=== PATIENT | male | born 1990 | race Caucasian/White ===

== ENCOUNTER 2017-01-08 16:02 | Observation (INO) | payer OTHER, MEDICAID ==
--- NOTE | 2017-01-08 17:21 | EDPHY ---
H & P Stated Complaint: renal disease has 1 kidney/pt has missed his dialysis for 2 weeks Time Seen by Provider: 01/08/17 17:18 HPI/ROS: CHIEF COMPLAINT: Headache HISTORY OF PRESENT ILLNESS: This is a 26-year-old male presenting to the emergency department complaining of headache x2 days. 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 Patient states he normally has dialysis at [facility] in [place] in [place] Saturday and Saturday, his last dialysis was 8 days ago he [place] and missed his last 2 visits of dialysis. REVIEW OF SYSTEMS: Constitutional: No fever, no chills. Decreased p.o. intake Eyes: No discharge. ENT: No sore throat. Cardiovascular: No chest pain, no palpitations. Respiratory: No cough, no shortness of breath. Gastrointestinal: No abdominal pain, no nausea or vomiting. Genitourinary: No hematuria. Musculoskeletal: No back pain. Skin: No rashes. Neurological: headache. Source: Patient - Personal History Current Tetanus/Diphtheria Vaccine: Yes - Medical/Surgical History Hx Asthma: No Hx Chronic Respiratory Disease: No Hx Diabetes: No Hx Cardiac Disease: No Hx Renal Disease: Yes Hx Cirrhosis: No Hx Alcoholism: No Hx HIV/AIDS: No Hx Splenectomy or Spleen Trauma: No Other PMH: dialysis for renal dysfunction - Social History Smoking Status: Current every day smoker - Physical Exam Exam: General Appearance: Alert, no distress. Eyes: Pupils equal and round no pallor or injection. ENT, Mouth: Mucous membranes moist. Respiratory: There are no retractions, lungs are clear to auscultation. Cardiovascular: Regular rate and rhythm. Gastrointestinal: Abdomen is soft and nontender, no masses, bowel sounds normal. Neurological: No focal deficits Skin: Warm and dry, no rashes. Musculoskeletal: Neck is supple nontender. Extremities: Left forearm fistula positive bruit positive thrill noted full range of motion. Psychiatric: Patient is oriented X 3, there is no agitation. Constitutional: Initial Vital Signs Temperature (C) 37 C 01/08/17 16:09 Heart Rate 90 01/08/17 16:09 Respiratory Rate 18 01/08/17 16:09 Blood Pressure 166/122 H 01/08/17 16:09 O2 Sat (%) 96 01/08/17 16:09 O2 Delivery Mode Room Air Allergies/Adverse Reactions: No Known Allergies Allergy (Unverified 01/08/17 16:09) Home Medications: Medication Instructions Recorded Calcium Carbonate [Tums 500MG (*)] 500 mg PO TIDMEAL PRN 01/08/17 Herbals/Supplements -Info Only 1 ea PO DAILY 01/08/17 Medical Decision Making ED Course/Re-evaluation: Discussed ED plan of care: CBC, CMP, EKG, 1730: Creatinine 19.3 BUN 103 potassium 7.2 hemoglobin 8.8 hematocrit 27.7. EKG peak T-waves. Discussed this patient with Dr. Muro. 1800: The renal paged. The meds ordered Kayexalate, the calcium gluconate, insulin/dextrose 1819: Spoke with Dr. Ferris with Renal. Renal aware patient fluid overload 2 amps of sodium bicarb ordered per Dr. Ferris. admitted for emergent dialysis 1825: Spoke with Dr. Sherman, patient is a PCU for hyperkalemia emergent dialysis 1848: Not in any distress, patient complaining of headache Percocet ordered for patient Differential Diagnosis: Other differential diagnosis considered not limited to CVA, abnormal EKG, and hypertension - Data Points Laboratory Results: Laboratory Results 01/08/17 17:16 01/08/17 17:16 01/08/17 01/08/17 01/08/17 17:16 17:16 17:14 WBC 9.59 10^3/uL H 10^3/uL (3.80-9.50) RBC 3.11 10^6/uL L 10^6/uL (4.40-6.38) Hgb 8.8 g/dL L g/dL (13.7-17.5) POC Hgb 8.8 gm/dL L gm/dL (14.5-17.3) Hct 27.7 % L % (40.0-51.0) POC Hct 26 % L % (42.8-50.6) MCV 89.1 fL fL (81.5-99.8) MCH 28.3 pg pg (27.9-34.1) MCHC 31.8 g/dL L g/dL (32.4-36.7) RDW 14.4 % % (11.5-15.2) Plt Count 208 10^3/uL 10^3/uL (150-400) MPV 10.0 fL fL (8.7-11.7) Neut % (Auto) 76.5 % H % (39.3-74.2) Lymph % (Auto) 14.5 % L % (15.0-45.0) [place] % (Auto) 5.0 % % (4.5-13.0) Eos % (Auto) 3.0 % % (0.6-7.6) Baso % (Auto) 0.5 % % (0.3-1.7) Nucleat RBC Rel Count 0.0 % % (0.0-0.2) Absolute Neuts (auto) 7.33 10^3/uL H 10^3/uL (1.70-6.50) Absolute Lymphs (auto) 1.39 10^3/uL 10^3/uL (1.00-3.00) Absolute Monos (auto) 0.48 10^3/uL 10^3/uL (0.30-0.80) Absolute Eos (auto) 0.29 10^3/uL 10^3/uL (0.03-0.40) Absolute Basos (auto) 0.05 10^3/uL 10^3/uL (0.02-0.10) Absolute Nucleated RBC 0.00 10^3/uL 10^3/uL (0-0.01) Immature Gran % 0.5 % % (0.0-1.1) Immature Gran # 0.05 10^3/uL 10^3/uL (0.00-0.10) POC Sodium 141 mEq/L mEq/L (134-144) Sodium 142 mEq/L mEq/L (134-144) POC Potassium 6.9 mEq/L H* mEq/L (3.3-5.0) Potassium 7.2 mEq/L H* mEq/L (3.5-5.2) POC Chloride 113 mEq/L H mEq/L (96-108) Chloride 109 mEq/L mEq/L (97-110) Carbon Dioxide 12 mEq/l L mEq/l (22-31) Anion Gap 21 mEq/L H mEq/L (8-16) POC BUN 113 mg/dL H* mg/dL (7-23) BUN 103 mg/dL H* mg/dL (7-23) Creatinine 19.3 mg/dL H* mg/dL (0.7-1.3) POC Creatinine > 20.0 mg/dL H* mg/dL (0.8-1.5) Estimated GFR 3 Glucose 75 mg/dL mg/dL (70-100) POC Glucose 74 mg/dL mg/dL (70-100) Calcium 7.4 mg/dL L mg/dL (8.5-10.4) Total Bilirubin 0.7 mg/dL mg/dL (0.1-1.4) AST 6 IU/L L IU/L (17-59) ALT 30 IU/L IU/L (21-72) Alkaline Phosphatase 71 IU/L IU/L (38-126) Total Protein 6.9 g/dL g/dL (6.3-8.2) Albumin 4.3 g/dL g/dL (3.5-5.0) Medications Given: Discontinued Medications Albuterol (Proventil Neb) 12 ml IH EDNOW ONE Stop: 01/08/17 18:05 Last Admin: 01/08/17 18:47 Dose: 12 ml Calcium Gluconate (Calcium Gluconate) 1 gm IVP EDNOW ONE Stop: 01/08/17 18:05 Last Admin: 01/08/17 18:20 Dose: 1 gm Dextrose (Dextrose 50% Syringe) 25 gm IVP EDNOW ONE Stop: 01/08/17 18:05 Last Admin: 01/08/17 18:17 Dose: 25 gm Insulin Human Regular (Humulin R) 10 unit IVP EDNOW ONE Stop: 01/08/17 18:05 Last Admin: 01/08/17 18:19 Dose: 10 units Point of Care Test Results: 01/08/17 17:14 POC Sodium 141 POC Potassium 6.9 H* POC Chloride 113 H POC BUN 113 H* POC Creatinine > 20.0 H* POC Glucose 74 Departure - Departure Disposition: [facility] Acute Clinical Impression: Hyperkalemia, Admission for dialysis Condition: Fair
[2017-01-08 17:26] LABS: % IMMATURE GRANULYOCYTES 0.5 % (0.0-1.1); ABSOLUTE IMMATURE GRANULOCYTES 0.05 10^3/uL (0.00-0.10); ADD DIFF? NO; ADD MORPH? NO; ADD SCAN? NO; ATYPICAL LYMPHOCYTE FLAG 0 (0-99); FRAGMENT RBC FLAG 0 (0-99); HEMATOCRIT 27.7 % (40.0-51.0); HEMOGLOBIN 8.8 g/dL (13.7-17.5); LEFT SHIFT FLG 0 (0-99); LIPEMIA HEMOLYSIS FLAG 80 (0-99); MEAN CELL HEMOGLOBIN 28.3 pg (27.9-34.1); MEAN CELL HEMOGLOBIN CONCENTR. 31.8 g/dL (32.4-36.7); MEAN CELL VOLUME 89.1 fL (81.5-99.8); PLATELET CLUMPS FLAG 0 (0-99); PLATELET COUNT 208 10^3/uL (150-400); RED BLOOD CELL COUNT 3.11 10^6/uL (4.40-6.38); RED CELL DISTRIBUTION WIDTH 14.4 % (11.5-15.2)
--- NOTE | 2017-01-08 17:39 | CPEKG ---
Heart Rate: 86 RR Interval: 698 P-R Interval: 144 QRSD Interval: 78 QT Interval: 388 QTC Interval: 464 P Bowie: 48 QRS Bowie: 28 T Wave Bowie: 86 EKG Severity - NORMAL ECG - EKG Impression: SINUS RHYTHM Electronically Signed By: Lawrence Muro 08-Jan-2017 21:03:46
[2017-01-08 17:51] LABS: ALANINE AMINOTRANSFERASE 30 IU/L (21-72); ALBUMIN 4.3 g/dL (3.5-5.0); ALKALINE PHOSPHATASE 71 IU/L (38-126); ANION GAP 21 mEq/L (8-16); ASPARTATE AMINOTRANSFERASE 6 IU/L (17-59); BILIRUBIN,TOTAL 0.7 mg/dL (0.1-1.4); CALCIUM 7.4 mg/dL (8.5-10.4); CARBON DIOXIDE 12 mEq/l (22-31); CHLORIDE 109 mEq/L (97-110); GLUCOSE 75 mg/dL (70-100); SODIUM 142 mEq/L (134-144); TOTAL PROTEIN 6.9 g/dL (6.3-8.2)
[2017-01-08 17:59] LABS: POTASSIUM 7.2 mEq/L (3.5-5.2)
[2017-01-08 18:00] LABS: GLOMERULAR FILTRATION RATE 3
[2017-01-08 18:02] LABS: CREATININE 19.3 mg/dL (0.7-1.3)
[2017-01-08] MEDS ORDERED: INSULIN REGULAR HUMAN 10 UNIT, COSIGN. REQUIRED 1 EA in D10W 500 ML IV ONE (18:04)
[2017-01-08] MEDS ORDERED: CALCIUM GLUC 10% 1 GM/10 ML VIAL IVP ONE (18:04)
[2017-01-08] MEDS ORDERED: D50W 25 GM/50 ML SYR IVP ONE (18:04)
[2017-01-08] MEDS ORDERED: SODIUM POLY SULF 15 GM/60 ML BOTTLE PO ONE (18:04)
[2017-01-08] MEDS ORDERED: INSULIN REGULAR HUMAN 100 UNIT/ML IVP ONE (18:04)
[2017-01-08] MEDS ORDERED: ALBUTEROL 3 ML DEYVIAL IH ONE (18:04)
[2017-01-08] MEDS ORDERED: NA BICARBONATE 50 MEQ/50 ML VIAL ONE ×2 (18:32→18:50)
[2017-01-08] MEDS ORDERED: SODIUM BICARBONATE 50 MEQ/50 ML SYR IVP ONE (18:45)
[2017-01-08] MEDS ORDERED: OXYCODONE/APAP 5/325 TAB PO ONE (18:49)
[2017-01-08] MEDS ORDERED: NS 50 ML BAG IV ONE (18:51)
[2017-01-08] MEDS ORDERED: OXYCODONE/APAP 5/325 TAB ONE (18:51)
[2017-01-08] MEDS ORDERED: ACETAMINOPHEN 325 MG TAB PO PRN (19:07)
[2017-01-08] MEDS ORDERED: ONDANSETRON DISINTEGRATING 4 MG TAB PO PRN (19:07)
[2017-01-08] MEDS ORDERED: ONDANSETRON 4 MG/2 ML VIAL IVP PRN (19:07)
[2017-01-08] MEDS ORDERED: CALCIUM CARBONATE 500 MG CHEWABLE TAB PO PRN (19:10)
--- NOTE | 2017-01-08 19:56 | PDGENHP ---
History and Physical - Chief Complaint ESRD - History of Present Illness Mr. Alexander is a 26 yo M with h/o ESRD on HD MWF at [facility] in [facility] who presents to ER having missed over a week of dialysis. Pt states he was last dialyzed on 12/31/16. He states that he is homeless for the past 4 months and has missed several treatments. Last week, he was stuck in [place], [place], with no ability to get a ride to dialysis. Today he moved in with his mom in [place] and now has a car to go to dialysis. His mother insisted he come into ER today. He continues to have good UOP, no N/V, but feels very tired. He has no swelling. He does note having a headache right now. In ED, noted to have K of 7.2, was given calcium, insulin/D50, and an amp of sodium bicarbonate. History Information - Allergies/Home Medication List Allergies/Adverse Reactions: No Known Allergies Allergy (Unverified 01/08/17 16:09) Home Medications: Calcium Carbonate [Tums 500MG (*)] 500 mg PO TIDMEAL PRN 01/08/17 [Last Taken Unknown] Herbals/Supplements -Info Only 1 ea PO DAILY 01/08/17 [Last Taken Unknown] I have personally reviewed and updated: medical history - Past Medical History Additional medical history: ESRD, on HD - Surgical History Additional surgical history: LUE AVF creation - Family History Positive for: non-pertinent - Social History Smoking Status: Current every day smoker Review of Systems ROS: 10pt was reviewed & negative except for what was stated in HPI & below Physical Exam Temp Pulse Resp BP Pulse Ox 37 C 120 H 20 166/89 H 96 01/08/17 19:38 01/08/17 19:38 01/08/17 19:38 01/08/17 19:38 01/08/17 19:38 Constitutional: no apparent distress, appears nourished, not in pain Eyes: PERRL, EOMI Ears, Nose, Mouth, Throat: moist mucous membranes, hearing normal Cardiovascular: regular rate and rhythym, pulses symmetric bilaterally, other ( LUE AVF with thrill and bruit appreciated), No edema Peripheral Pulses: 2+: dorsalis-pedis (R), dorsalis-pedis (L) Respiratory: no respiratory distress, no rales or rhonchi, clear to auscultation Gastrointestinal: normoactive bowel sounds, soft, non-tender abdomen, No distension Skin: warm, No rash Musculoskeletal: no muscle tenderness, normal joint ROM, no joint effusions Neurologic: AAOx3, asterixes, CN II-XII Intact Psychiatric: interacting appropriately, not anxious, not encephalopathic, thought process linear Lab Data & Imaging Review 01/08/17 17:16 01/08/17 17:16 WBC 9.59 10^3/uL (3.80-9.50) H 01/08/17 17:16 RBC 3.11 10^6/uL (4.40-6.38) L 01/08/17 17:16 Hgb 8.8 g/dL (13.7-17.5) L 01/08/17 17:16 POC Hgb 8.8 gm/dL (14.5-17.3) L 01/08/17 17:14 Hct 27.7 % (40.0-51.0) L 01/08/17 17:16 POC Hct 26 % (42.8-50.6) L 01/08/17 17:14 MCV 89.1 fL (81.5-99.8) 01/08/17 17:16 MCH 28.3 pg (27.9-34.1) 01/08/17 17:16 MCHC 31.8 g/dL (32.4-36.7) L 01/08/17 17:16 RDW 14.4 % (11.5-15.2) 01/08/17 17:16 Plt Count 208 10^3/uL (150-400) 01/08/17 17:16 MPV 10.0 fL (8.7-11.7) 01/08/17 17:16 Neut % (Auto) 76.5 % (39.3-74.2) H 01/08/17 17:16 Lymph % (Auto) 14.5 % (15.0-45.0) L 01/08/17 17:16 [place] % (Auto) 5.0 % (4.5-13.0) 01/08/17 17:16 Eos % (Auto) 3.0 % (0.6-7.6) 01/08/17 17:16 Baso % (Auto) 0.5 % (0.3-1.7) 01/08/17 17:16 Nucleat RBC Rel Count 0.0 % (0.0-0.2) 01/08/17 17:16 Absolute Neuts (auto) 7.33 10^3/uL (1.70-6.50) H 01/08/17 17:16 Absolute Lymphs (auto) 1.39 10^3/uL (1.00-3.00) 01/08/17 17:16 Absolute Monos (auto) 0.48 10^3/uL (0.30-0.80) 01/08/17 17:16 Absolute Eos (auto) 0.29 10^3/uL (0.03-0.40) 01/08/17 17:16 Absolute Basos (auto) 0.05 10^3/uL (0.02-0.10) 01/08/17 17:16 Absolute Nucleated RBC 0.00 10^3/uL (0-0.01) 01/08/17 17:16 Immature Gran % 0.5 % (0.0-1.1) 01/08/17 17:16 Immature Gran # 0.05 10^3/uL (0.00-0.10) 01/08/17 17:16 POC Sodium 141 mEq/L (134-144) 01/08/17 17:14 Sodium 142 mEq/L (134-144) 01/08/17 17:16 POC Potassium 6.9 mEq/L (3.3-5.0) H* 01/08/17 17:14 Potassium 7.2 mEq/L (3.5-5.2) H* 01/08/17 17:16 POC Chloride 113 mEq/L (96-108) H 01/08/17 17:14 Chloride 109 mEq/L (97-110) 01/08/17 17:16 Carbon Dioxide 12 mEq/l (22-31) L 01/08/17 17:16 Anion Gap 21 mEq/L (8-16) H 01/08/17 17:16 POC BUN 113 mg/dL (7-23) H* 01/08/17 17:14 BUN 103 mg/dL (7-23) H* 01/08/17 17:16 Creatinine 19.3 mg/dL (0.7-1.3) H* 01/08/17 17:16 POC Creatinine > 20.0 mg/dL (0.8-1.5) H* 01/08/17 17:14 Estimated GFR 3 01/08/17 17:16 Glucose 75 mg/dL (70-100) 01/08/17 17:16 POC Glucose 74 mg/dL (70-100) 01/08/17 17:14 Calcium 7.4 mg/dL (8.5-10.4) L 01/08/17 17:16 Total Bilirubin 0.7 mg/dL (0.1-1.4) 01/08/17 17:16 AST 6 IU/L (17-59) L 01/08/17 17:16 ALT 30 IU/L (21-72) 01/08/17 17:16 Alkaline Phosphatase 71 IU/L (38-126) 01/08/17 17:16 Total Protein 6.9 g/dL (6.3-8.2) 01/08/17 17:16 Albumin 4.3 g/dL (3.5-5.0) 01/08/17 17:16 Assessment & Plan Assessment: Assessment/Plan: ESRD: on HD MWF, has not dialyzed for 8 days. - HD today. - HD again tomorrow. Hyperkalemia: K 7.2, treated in ER with calcium, insulin/D50, and sodium bicarbonate. - Will modulate on HD. Metabolic acidosis: given one amp of sodium bicarbonate, will modulate further on HD. Thank you for the interesting consult. Nephrology will continue to follow, please call with any additional questions or concerns.
--- NOTE | 2017-01-08 20:13 | GHP ---
[f rep st] HISTORY AND PHYSICAL DATE OF ADMISSION: 01/08/2017 HISTORY OF PRESENT ILLNESS: The patient is a pleasant 26-year-old gentleman with congenital single kidney, who is on dialysis, who presents at the request of his parents. It has been about 10 days s adrian his last dialysis episode. [place] I think he currently has nowhere to lives, is staying with a brother in [place], which in [facility]. He describes malaise a nd perhaps some palpitations. He continues to make urine. He does not follow a low-potassium or "r enal" diet. He has had no fever, chills, nausea, vomiting, diarrhea. No urgency, frequency, dysuri a. The patient is not gaining weight. REVIEW OF SYSTEMS: Complete 10-point review of systems conducted, negative except as noted in the H PI. PAST MEDICAL HISTORY: 1. Congenital single kidney. 2. Dialysis dependence. It is unclear what rendered the other kidney nonfunctional. We have no pr ior visits from here. ALLERGIES: No known drug allergies. HOME MEDICATIONS: Tums and multivitamin. SOCIAL HISTORY: Minimal alcohol. No tobacco. FAMILY HISTORY: Negative for kidney disease. PHYSICAL EXAMINATION: VITAL SIGNS: Blood pressure 166/122, pulse 93, although it is 120 when I see him, breathing 18 times a minute, 96% on room air, afebrile at 37. GENERAL: No acute distress. H EENT: Sclerae anicteric. Oropharynx clear. Mucous membranes are moist. NECK: Supple. No lympha denopathy or JVD. LUNGS: Clear to auscultation bilaterally. HEART: S1, S2. Tachycardic. ABDOME N: Soft, nontender, nondistended. LOWER EXTREMITIES: No edema. Calves nontender. SKIN: Without rash. NEUROLOGIC: Nonfocal. LABS: Sodium 142, potassium 7.2, chloride 109, bicarb 12, BUN 103, creatinine 19.3, glucose 75, debra cium 7.4. LFTs normal. White count 9.6, hematocrit 27.7, platelets are 208,000. EKG, interpreted by me, shows sinus rhythm at 86 with normal axis and intervals. There are peak T-w aves across the precordium. There is no prior for comparison. I have discussed the case with JANET Diop, of the Emergency Department. ASSESSMENT AND PLAN: This is a 26-year-old male, dialysis dependent, who has not had dialysis for 1 0 days secondary to being away from a dialysis center, presents at the urging of his parents noted t o be hyperkalemia. 1. Hyperkalemia. The patient is hyperkalemic secondary to no dialysis, potassium 7.2. EKG changes . He received albuterol, calcium carbonate, calcium gluconate, insulin, D5, as well as b icarb in the Emergency Department. Renal has been contacted and will perform dialysis tonight. His QRS is normal. Keep him on telemetry. 2. Malaise is likely secondary to uremia. 3. Tachycardia. The patient's heart rate was 120 when I saw him. He had received albuterol nebs s econdary to his hyperkalemia. This is likely the cause. We will follow. 4. Anemia. This is anemia of chronic kidney disease. I would imagine he gets epo with dialysis. He gets that through [facility]. 5. Prophylaxis. Pharmacologic prophylaxis indicated if in the hospital longer than 24 hours. He i s admitted currently obs. DISPOSITION: Observation status. Likely home after dialysis. /[id number]/MODL
[2017-01-08] MEDS ORDERED: HYDROCODONE/APAP 5/325 TAB PO ONE (23:28)
[2017-01-09] MEDS ORDERED: hydrALAZINE 20 MG/ML VIAL IVP PRN (00:24)
[2017-01-09 00:32] VITALS: O2SAT 98
[2017-01-09 06:20] LABS: ANION GAP 16 mEq/L (8-16); CALCIUM 7.9 mg/dL (8.5-10.4); CARBON DIOXIDE 22 mEq/l (22-31); CHLORIDE 102 mEq/L (97-110); GLOMERULAR FILTRATION RATE 6; GLUCOSE 101 mg/dL (70-100); POTASSIUM 4.4 mEq/L (3.5-5.2); SODIUM 140 mEq/L (134-144)
[2017-01-09 06:26] LABS: CREATININE 10.7 mg/dL (0.7-1.3)
[2017-01-09] MEDS ORDERED: Herbals/Supplements -Info Only PO SCH (09:00)
--- NOTE | 2017-01-09 10:05 | SOAPPROG ---
JASON Progress Note Assessment/Plan: Assessment: 1. ESRD. Missed HD x ~1wk. Reinforced importance of compliance with dialysis. Now has apartment close to his center, says he can walk to dialysis. OK from renal standpoint to d/c after dialysis today. 2. HTN. Running high. May need BP meds, will defer to outpatient division order technician. Plan: 01/09/17 10:01 01/09/17 10:03 Subjective: Pt seen and examined on hemodialysis. Kidney fx due to congenital solitary kidney. Has 4 yrs on tx wait list at [facility]. Dialyzes at [facility]. Had QUIGLEY after dialysis yesterday, resolved this am. No other complaints. Wants to go home. Objective: Vital Signs Temp Pulse Resp BP Pulse Ox 36.7 C 118 H 19 152/89 H 98 01/09/17 03:58 01/09/17 03:58 01/09/17 03:58 01/09/17 03:58 01/09/17 03:58 Laboratory Results 01/09/17 03:49 01/08/17 01/09/17 01/10/17 05:59 05:59 05:59 Intake Total 300 Balance 300 On dialysis. Qb 300 RRR, no m/g/r CTAB Abdom soft, nt No edema L FA AVF ICD10 Worksheet Patient Problems: Problems Problem Status Onset Hyperkalemia Acute Admission for dialysis Acute
--- NOTE | 2017-01-09 11:21 | GDS ---
[f rep st] DISCHARGE SUMMARY DIAGNOSES: 1. End-stage renal disease. 2. Need for emergent dialysis. 3. Hyperkalemia, critical. 4. Hypertension. 5. Anemia. HOSPITAL COURSE: A 26-year-old man with end-stage renal disease needing emergent dialysis. He had gotten stranded up in [place] without access to his home dialysis unit. He had missed approximatel y a week of dialysis. He has received 2 rounds of dialysis here. His potassium was initially 7.2, it was down to 4.4 after 1 round of dialysis. He feels well, is ready to be discharged. He has als o been hypertensive. Will defer instituting antihypertensives to his outpatient [employer]. He i s discharged in stable condition BILLING: I spent less than 30 minutes on the day of discharge coordinating care. /[id number]/MODL
[2017-01-09 11:26] VITALS: BP 171/111; PULSE 86; RESP 14; TEMP 98.3
== END 2017-01-09 11:47 | disposition home or self-care (01) ==
LOC: INTOOBSV 18:24 → F2W 19:41
PROVIDERS: ADMIT Internal Medicine; ATTEND Student in an Organized Health Care Education/Training Program
PROC: 5A1D60Z (ICD-10-PCS; principal; 2017-01-08)
DX: I12.0 Hypertensive chronic kidney disease with stage 5 chronic kidney disease or end stage renal disease (principal); N18.6 End stage renal disease; E87.5 Hyperkalemia; D63.1 Anemia in chronic kidney disease; Q60.0 Renal agenesis, unilateral; Z99.2 Dependence on renal dialysis
CPT/HCPCS: 93005; 96374; 96375; 99285; G0378; J0360; J0610; J1815; J2405; 82947-QW

== ENCOUNTER 2017-01-18 12:15 | Inpatient (IN) | payer OTHER, MEDICAID ==
[2017-01-18] MEDS ORDERED: ACETAMINOPHEN 500 MG TAB PO ONE (13:12)
--- NOTE | 2017-01-18 13:12 | EDPHY ---
H & P Time Seen by Provider: 01/18/17 12:57 HPI/ROS: CHIEF COMPLAINT: needs dialysis HISTORY OF PRESENT ILLNESS: 26-year-old man has been dialysis dependent for the last 3 and half years. He was last dialyzed in our facility when he was admitted on January 08 of this year. He lost his place to live in [place] and has not been dialyzed since. He feels lethargic which is his typical symptom when he needs to be dialyzed. REVIEW OF SYSTEMS: Eye: no change in vision ENT: no sore throat Cardiac: no chest pain or syncope Pulmonary: no cough or SOB Abdomen: no vomiting, diarrhea, abdominal pain Musculoskeletal: Sustained left ankle injury 3 days ago when he twisted it. Painful to walk on it. Skin: no rash Neuro: Developed a nontraumatic non thunderclap bifrontal headache over the past 2 days which is stable. Constitutional: no fever : no urinary symptoms, still urinates, no dysuria or hematuria A comprehensive 10 point review of systems is otherwise negative aside from elements mentioned in the history of present illness. PAST MEDICAL HISTORY: Single kidney, dialysis dependent. Social history: Nonsmoker, recently moved to [place] from [place]. General Appearance: Alert and conversant, cooperative. Eyes: No scleral icterus. Extraocular motion intact and pupils equal reactive. ENT, Mouth: Normal mucous membranes. No facial swelling or tenderness, neck supple, no pharyngeal erythema or exudate, no trismus. Respiratory: Normal respiratory effort, breath sounds equal, lungs are clear to auscultation. Cardiovascular: Regular rate and rhythm. Left forearm fistula present with a thrill. 2/6 systolic murmur. Gastrointestinal: Abdomen is soft and non tender. Neurological: Alert and oriented x3. Normally conversant. Face symmetric, normal movement and sensation in all extremities. Skin: Warm and dry, no rashes. Musculoskeletal: Left ankle lateral malleolus swelling and tenderness. Achilles is nontender. Ankle joint is stable. Proximal tib-fib and foot are nontender. Skin over the affected area is intact. Psychiatric: Not agitated. Emergency Department course/MDM: Plan for i-STAT sec electrolytes including potassium, EKG. Noncontrast head CT for headache and a dialysis patient with dysfunctional platelets, Tylenol initially, left ankle x-ray. 1316: I-STAT potassium is 7.7. Calcium gluconate 10 mL is IV, insulin 10 units IV, dextrose 25 g IV, sodium bicarbonate 1 amp IV. 1410: Negative head CT per Dr. Ramirez, also personally reviewed and interpreted by myself. 1450: Results discussed, patient medicated for headache. 1535: Called to evaluate patient because of diaphoresis. Blood pressure 166 systolic, strong radial pulse, heart rate 100 to 110, patient is alert and has no medical complaints. He is a little bit diaphoretic and his QRS is narrow on the monitor still. Plan to admit patient and continue to monitor. No acute intervention at this time. Smoking Status: Current every day smoker Constitutional: Initial Vital Signs Temperature (C) 37.1 C 01/18/17 12:15 Heart Rate 107 H 01/18/17 12:15 Respiratory Rate 18 01/18/17 12:15 Blood Pressure 161/94 H 01/18/17 12:15 O2 Sat (%) 96 01/18/17 12:15 O2 Delivery Mode Room Air Allergies/Adverse Reactions: No Known Allergies Allergy (Verified 01/18/17 12:16) Home Medications: Medication Instructions Recorded Calcium Carbonate [Tums 500MG (*)] 500 mg PO TIDMEAL PRN 01/08/17 Herbals/Supplements -Info Only 1 ea PO DAILY 01/08/17 Medical Decision Making - Diagnostics EKG Interpretation: 12-lead EKG interpreted by me; official reading is in trace master. My interpretation is sinus rhythm rate 90, borderline prolonged QT, hyperacute anterior T-waves, QRS duration 84. Imaging Results: Imaging Impressions Head CT 01/18/17 13:09 Impression: There is no acute abnormality identified on this unenhanced CT evaluation. If there is further clinical concern regarding the patient's symptoms, MR imaging is suggested, if not otherwise contraindicated. Findings were discussed with ANDRY KIRAN MD at 14:09, on 01/18/2017. Ankle X-Ray 01/18/17 13:10 Impression: 1. Mild soft tissue swelling, with no acute osseous anatomy. 2. Vascular calcifications suggestive of underlying diabetes. Left ankle x-ray negative for fracture or dislocation personally interpreted Imaging: I viewed and interpreted images myself Differential Diagnosis: Differential for weakness considered including but not limited to hyponatremia, hyperkalemia, hypoglycemia, other metabolic abnormality, uremia or renal failure. Consult/Admit Bed Type: [place] [id number] Critical Care Time: Critical care time spent by me, Dr. Kiran, exclusively with the care of this patient was 30 minutes, exclusive of PA or DIVISION OPERATIONS SPECIALIST time and exclusive of separate procedures. The organ system at risk was metabolic, hyperkalemia and I ordered intravenous calcium, insulin, glucose, and bicarbonate, discussion with hospitalist and clinical operations consultant to arrange dialysis and to stabilize the patient and prevent worsening of the patient's condition. - Data Points Laboratory Results: Laboratory Results 01/18/17 13:10 01/18/17 13:10 01/18/17 01/18/17 01/18/17 13:10 13:10 13:07 WBC 8.63 10^3/uL 10^3/uL (3.80-9.50) RBC 2.48 10^6/uL L 10^6/uL (4.40-6.38) Hgb 7.2 g/dL L g/dL (13.7-17.5) POC Hgb 7.1 gm/dL L gm/dL (13.7-17.5) Hct 22.1 % L % (40.0-51.0) POC Hct 21 % L % (40-51) MCV 89.1 fL fL (81.5-99.8) MCH 29.0 pg pg (27.9-34.1) MCHC 32.6 g/dL g/dL (32.4-36.7) RDW 14.1 % % (11.5-15.2) Plt Count 205 10^3/uL 10^3/uL (150-400) MPV 9.7 fL fL (8.7-11.7) Neut % (Auto) 78.9 % H % (39.3-74.2) Lymph % (Auto) 13.2 % L % (15.0-45.0) [place] % (Auto) 3.9 % L % (4.5-13.0) Eos % (Auto) 2.9 % % (0.6-7.6) Baso % (Auto) 0.5 % % (0.3-1.7) Nucleat RBC Rel Count 0.0 % % (0.0-0.2) Absolute Neuts (auto) 6.81 10^3/uL H 10^3/uL (1.70-6.50) Absolute Lymphs (auto) 1.14 10^3/uL 10^3/uL (1.00-3.00) Absolute Monos (auto) 0.34 10^3/uL 10^3/uL (0.30-0.80) Absolute Eos (auto) 0.25 10^3/uL 10^3/uL (0.03-0.40) Absolute Basos (auto) 0.04 10^3/uL 10^3/uL (0.02-0.10) Absolute Nucleated RBC 0.00 10^3/uL 10^3/uL (0-0.01) Immature Gran % 0.6 % % (0.0-1.1) Immature Gran # 0.05 10^3/uL 10^3/uL (0.00-0.10) POC Sodium 139 mEq/L mEq/L (134-144) Sodium 141 mEq/L mEq/L (134-144) POC Potassium 7.7 mEq/L H* mEq/L (3.3-5.0) Potassium 7.9 mEq/L H* mEq/L (3.5-5.2) POC Chloride 114 mEq/L H mEq/L (97-110) Chloride 108 mEq/L mEq/L (97-110) Carbon Dioxide 13 mEq/l L mEq/l (22-31) Anion Gap 20 mEq/L H mEq/L (8-16) POC BUN 106 mg/dL H* mg/dL (7-23) BUN 96 mg/dL H mg/dL (7-23) Creatinine 19.1 mg/dL H* mg/dL (0.7-1.3) POC Creatinine Pending Estimated GFR 3 Glucose 88 mg/dL mg/dL (70-100) POC Glucose 91 mg/dL mg/dL (70-100) Calcium 7.2 mg/dL L mg/dL (8.5-10.4) Total Bilirubin 0.5 mg/dL mg/dL (0.1-1.4) AST 9 IU/L L IU/L (17-59) ALT 31 IU/L IU/L (21-72) Alkaline Phosphatase 59 IU/L IU/L (38-126) Total Protein 6.1 g/dL L g/dL (6.3-8.2) Albumin 3.8 g/dL g/dL (3.5-5.0) Medications Given: Discontinued Medications Acetaminophen (Tylenol) 1,000 mg PO EDNOW ONE Stop: 01/18/17 13:13 Last Admin: 01/18/17 13:52 Dose: 1,000 mg Dextrose (Dextrose 50% Syringe) 25 gm IVP EDNOW ONE Stop: 01/18/17 13:18 Last Admin: 01/18/17 14:09 Dose: 25 gm Hydromorphone HCl (Dilaudid) 0.25 mg IVP EDNOW ONE Stop: 01/18/17 14:53 Last Admin: 01/18/17 15:28 Dose: 0.25 mg Calcium Gluconate (Calcium Gluconate 1 Gm (Premix)) 50 mls @ 100 mls/hr IV EDNOW ONE Stop: 01/18/17 13:46 Last Admin: 01/18/17 14:09 Dose: 50 mls Insulin Human Regular (Humulin R) 10 unit IVP EDNOW ONE Stop: 01/18/17 13:18 Last Admin: 01/18/17 14:09 Dose: 10 units Sodium Bicarbonate (Sodium Bicarbonate) 50 meq IVP EDNOW ONE Stop: 01/18/17 13:18 Last Admin: 01/18/17 14:10 Dose: 50 meq Point of Care Test Results: 01/18/17 13:07 POC Sodium 139 POC Potassium 7.7 H* POC Chloride 114 H POC BUN 106 H* POC Glucose 91 Departure - Departure Disposition: [facility] In[facility] Acute Clinical Impression: Hyperkalemia, ESRD (end stage renal disease) Left ankle sprain Qualifiers: Encounter type: initial encounter Involved ligament of ankle: unspecified ligament Qualified Code(s): S93.402A - Sprain of unspecified ligament of left ankle, initial encounter Condition: Serious
[2017-01-18] MEDS ORDERED: D50W 25 GM/50 ML SYR IVP ONE (13:17)
[2017-01-18] MEDS ORDERED: CALCIUM GLUCONATE 50 ML IV ONE (13:17)
[2017-01-18] MEDS ORDERED: SODIUM BICARBONATE 50 MEQ/50 ML SYR IVP ONE (13:17)
[2017-01-18] MEDS ORDERED: INSULIN REGULAR HUMAN 100 UNIT/ML IVP ONE (13:17)
--- NOTE | 2017-01-18 13:20 | CPEKG ---
Heart Rate: 90 RR Interval: 667 P-R Interval: 148 QRSD Interval: 84 QT Interval: 388 QTC Interval: 475 P [place]: 44 QRS [place]: 20 T Wave [place]: 92 EKG Severity - ABNORMAL ECG - EKG Impression: SINUS RHYTHM EKG Impression: NONSPECIFIC T ABNORMALITIES, LATERAL LEADS EKG Impression: BORDERLINE PROLONGED QT INTERVAL Electronically Signed By: Chato Kiran 18-Jan-2017 13:21:21
[2017-01-18 13:24] LABS: % IMMATURE GRANULYOCYTES 0.6 % (0.0-1.1); ABSOLUTE IMMATURE GRANULOCYTES 0.05 10^3/uL (0.00-0.10); ADD DIFF? NO; ADD MORPH? NO; ADD SCAN? NO; ATYPICAL LYMPHOCYTE FLAG 0 (0-99); FRAGMENT RBC FLAG 0 (0-99); HEMATOCRIT 22.1 % (40.0-51.0); HEMOGLOBIN 7.2 g/dL (13.7-17.5); LEFT SHIFT FLG 0 (0-99); LIPEMIA HEMOLYSIS FLAG 80 (0-99); MEAN CELL HEMOGLOBIN CONCENTR. 32.6 g/dL (32.4-36.7); MEAN CELL VOLUME 89.1 fL (81.5-99.8); MEAN PLATELET VOLUME 9.7 fL (8.7-11.7); PLATELET CLUMPS FLAG 0 (0-99); PLATELET COUNT 205 10^3/uL (150-400); RED BLOOD CELL COUNT 2.48 10^6/uL (4.40-6.38); RED CELL DISTRIBUTION WIDTH 14.1 % (11.5-15.2)
[2017-01-18 13:35] LABS: ALANINE AMINOTRANSFERASE 31 IU/L (21-72); ALBUMIN 3.8 g/dL (3.5-5.0); ALKALINE PHOSPHATASE 59 IU/L (38-126); ANION GAP 20 mEq/L (8-16); ASPARTATE AMINOTRANSFERASE 9 IU/L (17-59); BILIRUBIN,TOTAL 0.5 mg/dL (0.1-1.4); CALCIUM 7.2 mg/dL (8.5-10.4); CARBON DIOXIDE 13 mEq/l (22-31); CHLORIDE 108 mEq/L (97-110); GLUCOSE 88 mg/dL (70-100); SODIUM 141 mEq/L (134-144); TOTAL PROTEIN 6.1 g/dL (6.3-8.2)
[2017-01-18] MEDS ORDERED: D50W 25 GM/50 ML VIAL ONE (13:42)
[2017-01-18 13:45] LABS: POTASSIUM 7.9 mEq/L (3.5-5.2)
[2017-01-18 14:22] LABS: GLOMERULAR FILTRATION RATE 3
[2017-01-18] MEDS ORDERED: ACETAMINOPHEN 325 MG TAB PO PRN (14:28)
[2017-01-18] MEDS ORDERED: HYDROmorphONE/DILAUDID 1 MG/ML SYR ONE (14:45)
[2017-01-18] MEDS ORDERED: HYDROmorphONE/DILAUDID 2 MG/ML INJ IVP ONE (14:52)
--- NOTE | 2017-01-18 16:10 | GCON ---
[f rep st] CONSULTATION RENAL CONSULTATION NOTE. REFERRING PHYSICIAN: Lawrence Muro MD REASON FOR CONSULTATION: ESRD. HISTORY OF PRESENT ILLNESS: The patient is a 26-year-old man with a history of ESRD on hemodialysis who presents with fatigue, malaise, and some disorientation. He has been on dialysis for 3-1/2 years and has followed at [facility] previously. He recently lost his housing and moved to [place] about a week ago and has not established care at the dialysis unit here. His last hemodialysis was on January 08. He was initially on peritoneal dialysis but switched to hemodialysis about 2 years ago due to an episode of peritonitis. He denies any complications related to hemodialysis. 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 He has a functional fistula in the left arm. He does still make some urine. He has not had a transplant evaluation. Currently, he denies nausea, vomiting, shortness of breath, chest pain, or any other complaint. 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 PAST SURGICAL HISTORY: Left brachiocephalic fistula. MEDICATIONS: Calcium carbonate 500 mg t.i.d. ALLERGIES: No known drug allergies. SOCIAL HISTORY: The patient moved to [place] to live with his mother. He smokes about a half a pack of cigarettes a day. He denies alcohol. FAMILY HISTORY: No known renal disease. REVIEW OF SYSTEMS: 10 systems reviewed and negative except as per HPI. PHYSICAL EXAMINATION: VITAL SIGNS: Temperature 36.9, pulse 98, respirations 14 , blood pressure 163/93. GENERAL: Alert and oriented x3, in no acute distress. HEENT: Extraocular muscles intact. Mucous membranes moist. PULMONARY: Clear to auscultation bilaterally. No wheeze, rales, or rhonchi. CV: Regular rate and rhythm. No murmurs, rubs, or gallops. ABDOMEN: Soft, nontender, nondistended. Positive bowel sounds. EXTREMITIES: No clubbing, cyanosis, or edema. Circulation: Left upper extremity AV fistula with a strong bruit and thrill. NEUROLOGIC: Cranial nerves 2-12 grossly intact. SKIN : No rash or lesion. LABORATORY DATA: Sodium 141, potassium 7.9, chloride 108, bicarb 13, BUN 96, creatine 19.1, calcium 7.2. White count 8.63, hemoglobin 7.2, platelet count 205. IMAGING: CT head without contrast: No acute abnormality. EKG: Mild peak T waves, V2 and V3. ASSESSMENT AND PLAN: 1. End-stage renal disease. The patient has not had dialysis in over a week. He will be scheduled for urgent hemodialysis today due to presenting with uremic symptoms and hyperkalemia. This will be done as a shorter and slower session in order to reduce the risk of dialysis disequilibrium syndrome. He will receive dialysis again tomorrow for further clearance and ultrafiltration. I have a placed a call into the local dialysis unit for transfer so that he can get ongoing regular outpatient treatments. This will need to be followed up on by the telephonic case manager, who will be alerted in order to help him secure placement prior to discharge from the hospital so that he does not have another long absence without dialysis. The patient appears to have had access via left arm fistula. 2. Hypertension. We will monitor after dialysis and fluid removal. May need to begin pharmacotherapy. He should receive a low-salt diet. 3. Anemia. The patient has not been receiving any [place] due to his absence from dialysis. We will give him a dose of Epo today. 4. Chronic kidney disease metabolic bone disease. We will check his phosphorus levels with next metabolic panel. Continue Tums with meals and give a low-phos diet. 5. Hyperkalemia. Will treat with urgent HD as above. Low potassium diet. Thank you for the consult. We will follow with you. /[id number]/MODL MTDD
[2017-01-18] MEDS ORDERED: EPOETIN ALFA 10,000 UNIT/ML VIAL SC SCH (16:30)
--- NOTE | 2017-01-18 16:50 | PDGENHP ---
History and Physical - Chief Complaint Acute lethargy - History of Present Illness Primary care provider: None HPI: 26-year-old male presenting with acute lethargy characterized as generalized fatigue with associated impaired balance and spatial awareness with onset of symptoms approximately 1 week ago and duration persistent thereafter. The patient denies any overt fever or chills but he has begun to experience some diaphoresis and sweating while he has been in our emergency department. He reports that he was discharged from our hospital on 01/09 and felt well for a couple days. He had some issues with his housing in [place] and has decided to permanently relocate up to [place]. Due to this relocation, the patient has been unable to secure transportation down to his [facility] in [facility] and he has consequently not received any hemodialysis since his discharge on 01/09. History Information - Allergies/Home Medication List Allergies/Adverse Reactions: No Known Allergies Allergy (Verified 01/18/17 12:16) Home Medications: Calcium Carbonate [Tums 500MG (*)] 500 mg PO TIDMEAL PRN 01/08/17 [Last Taken ] Herbals/Supplements -Info Only 1 ea PO DAILY 01/08/17 [Last Taken 01/17/17] I have personally reviewed and updated: family history, medical history, social history, surgical history - Past Medical History Additional medical history: ESRD secondary to solitary kidney, on HD in [facility] - Surgical History Additional surgical history: LUE AVF creation - Family History Additional family history: No family history of end-stage renal disease - Social History Smoking Status: Current every day smoker Alcohol Use: None Drug Use: None Additional social history: Reports he is currently living with his mother in [place], does not have any transportation beyond the local bus system Review of Systems ROS: 10pt was reviewed & negative except for what was stated in HPI & below Constitutional: Reports: diaphoresis, weakness Physical Exam Temp Pulse Resp BP Pulse Ox 36.9 C 98 14 163/93 H 92 01/18/17 15:05 01/18/17 15:05 01/18/17 15:05 01/18/17 15:05 01/18/17 15:05 Constitutional: no apparent distress, not in pain, chronically ill appearing, uncomfortable Eyes: PERRL, anicteric sclera, EOMI Ears, Nose, Mouth, Throat: moist mucous membranes, hearing normal, ears appear normal, no oral mucosal ulcers Cardiovascular: systolic murmur (2/6 systolic murmur at the sternum and apex), No regular rate and rhythym, No irregularly irregular, No tachycardia, No edema Respiratory: no respiratory distress, no rales or rhonchi, clear to auscultation Gastrointestinal: normoactive bowel sounds, soft, non-tender abdomen, no palpable masses Genitourinary: no bladder fullness, no bladder tenderness Skin: other (Sweaty) Neurologic: AAOx3, sensation intact bilaterally, No weakness (Motor strength 5/ 5 bilateral upper and lower extremities) Psychiatric: interacting appropriately, not anxious, not encephalopathic, thought process linear Lab Data & Imaging Review 01/18/17 13:10 01/18/17 13:10 WBC 8.63 10^3/uL (3.80-9.50) 01/18/17 13:10 RBC 2.48 10^6/uL (4.40-6.38) L 01/18/17 13:10 Hgb 7.2 g/dL (13.7-17.5) L 01/18/17 13:10 POC Hgb 7.1 gm/dL (13.7-17.5) L 01/18/17 13:07 Hct 22.1 % (40.0-51.0) L 01/18/17 13:10 POC Hct 21 % (40-51) L 01/18/17 13:07 MCV 89.1 fL (81.5-99.8) 01/18/17 13:10 MCH 29.0 pg (27.9-34.1) 01/18/17 13:10 MCHC 32.6 g/dL (32.4-36.7) 01/18/17 13:10 RDW 14.1 % (11.5-15.2) 01/18/17 13:10 Plt Count 205 10^3/uL (150-400) 01/18/17 13:10 MPV 9.7 fL (8.7-11.7) 01/18/17 13:10 Neut % (Auto) 78.9 % (39.3-74.2) H 01/18/17 13:10 Lymph % (Auto) 13.2 % (15.0-45.0) L 01/18/17 13:10 [place] % (Auto) 3.9 % (4.5-13.0) L 01/18/17 13:10 Eos % (Auto) 2.9 % (0.6-7.6) 01/18/17 13:10 Baso % (Auto) 0.5 % (0.3-1.7) 01/18/17 13:10 Nucleat RBC Rel Count 0.0 % (0.0-0.2) 01/18/17 13:10 Absolute Neuts (auto) 6.81 10^3/uL (1.70-6.50) H 01/18/17 13:10 Absolute Lymphs (auto) 1.14 10^3/uL (1.00-3.00) 01/18/17 13:10 Absolute Monos (auto) 0.34 10^3/uL (0.30-0.80) 01/18/17 13:10 Absolute Eos (auto) 0.25 10^3/uL (0.03-0.40) 01/18/17 13:10 Absolute Basos (auto) 0.04 10^3/uL (0.02-0.10) 01/18/17 13:10 Absolute Nucleated RBC 0.00 10^3/uL (0-0.01) 01/18/17 13:10 Immature Gran % 0.6 % (0.0-1.1) 01/18/17 13:10 Immature Gran # 0.05 10^3/uL (0.00-0.10) 01/18/17 13:10 POC Sodium 139 mEq/L (134-144) 01/18/17 13:07 Sodium 141 mEq/L (134-144) 01/18/17 13:10 POC Potassium 7.7 mEq/L (3.3-5.0) H* 01/18/17 13:07 Potassium 7.9 mEq/L (3.5-5.2) H* 01/18/17 13:10 POC Chloride 114 mEq/L (97-110) H 01/18/17 13:07 Chloride 108 mEq/L (97-110) 01/18/17 13:10 Carbon Dioxide 13 mEq/l (22-31) L 01/18/17 13:10 Anion Gap 20 mEq/L (8-16) H 01/18/17 13:10 POC BUN 106 mg/dL (7-23) H* 01/18/17 13:07 BUN 96 mg/dL (7-23) H 01/18/17 13:10 Creatinine 19.1 mg/dL (0.7-1.3) H* 01/18/17 13:10 Estimated GFR 3 01/18/17 13:10 Glucose 88 mg/dL (70-100) 01/18/17 13:10 POC Glucose 91 mg/dL (70-100) 01/18/17 13:07 Calcium 7.2 mg/dL (8.5-10.4) L 01/18/17 13:10 Total Bilirubin 0.5 mg/dL (0.1-1.4) 01/18/17 13:10 AST 9 IU/L (17-59) L 01/18/17 13:10 ALT 31 IU/L (21-72) 01/18/17 13:10 Alkaline Phosphatase 59 IU/L (38-126) 01/18/17 13:10 Total Protein 6.1 g/dL (6.3-8.2) L 01/18/17 13:10 Albumin 3.8 g/dL (3.5-5.0) 01/18/17 13:10 Patient ABO/Rh A POSITIVE 01/18/17 14:26 Antibody Screen NEGATIVE 01/18/17 14:26 Visualized and Interpreted imaging results: Yes Interpretation: Lower extremity x-ray demonstrating some edema but no fracture Visualized and Interpreted EKG results: Yes EKG Interpretation: Positive for: other (Q-wave in lead 3, Q-wave in lead V2) Assessment & Plan Assessment: 26-year-old male presenting with acute severe hyperkalemia in the setting of end -stage renal disease and lack of access to dialysis Plan: 1. Hyperkalemia. Acute, severe, new problem this provider, further workup indicated. Secondary to end-stage renal disease and no hemodialysis since 01/09 -reviewed discharge summary by Dr. Darinel dobson, he reports that when the patient was discharged on 01/09, his potassium level was 4.4 -currently does not have peaked T-waves on EKG, discussed with Dr. Eric, he advises that the patient will receive hemodialysis this afternoon and will be monitored in the intensive care unit 2. End-stage renal disease. Chronic, resulting in above, patient has relocated [place] he does not have transportation access to his original Dialysis Center in [facility] -recommend case management assistance with arranging local dialysis care and coordinating with Nephrology service 3. Elevated blood pressure. Suspect he has chronic underlying hypertension, reconcile home medications once available 4. Metabolic acidosis. Acute, secondary to end-stage renal disease, serum bicarb currently 13, monitor with dialysis 5. Anemia. Secondary to chronic kidney disease, hemoglobin currently 7.2, no evidence of bleeding, continue to monitor,hold on transfusion at this time, the patient may receive 1 unit with dialysis Diet. Renal Prophylaxis. Low risk patient, SCDs Code. Full, mother is MPOA Disposition. Anticipated discharge uncertain this time, anticipated length stay is greater than 48 hours warranting inpatient admission status for acute hyperkalemia which is severe and requiring urgent hemodialysis most likely several sessions given the severity.
[2017-01-18] MEDS ORDERED: CALCIUM CARBONATE 500 MG CHEWABLE TAB PO PRN (16:54)
[2017-01-18] MEDS ORDERED: HEPARIN 10,000 UNIT/10 ML MDV ONE (19:28)
[2017-01-18 20:12] VITALS: TEMP 98.6
[2017-01-18] MEDS ORDERED: hydrALAZINE 20 MG/ML VIAL IVP PRN (23:10)
[2017-01-19] MEDS: hydrALAZINE 20 MG/ML VIAL IVP PRN ×2 (00:24→06:23)
[2017-01-19 04:39] LABS: % IMMATURE GRANULYOCYTES 0.7 % (0.0-1.1); ABSOLUTE IMMATURE GRANULOCYTES 0.06 10^3/uL (0.00-0.10); ADD DIFF? NO; ADD MORPH? NO; ADD SCAN? NO; ATYPICAL LYMPHOCYTE FLAG 0 (0-99); FRAGMENT RBC FLAG 0 (0-99); HEMATOCRIT 24.4 % (40.0-51.0); HEMOGLOBIN 8.2 g/dL (13.7-17.5); LEFT SHIFT FLG 0 (0-99); LIPEMIA HEMOLYSIS FLAG 80 (0-99); MEAN CELL HEMOGLOBIN 28.7 pg (27.9-34.1); MEAN CELL HEMOGLOBIN CONCENTR. 33.6 g/dL (32.4-36.7); MEAN CELL VOLUME 85.3 fL (81.5-99.8); MEAN PLATELET VOLUME 10.3 fL (8.7-11.7); PLATELET CLUMPS FLAG 0 (0-99); PLATELET COUNT 231 10^3/uL (150-400); RED BLOOD CELL COUNT 2.86 10^6/uL (4.40-6.38)
[2017-01-19 05:00] LABS: ALBUMIN 3.8 g/dL (3.5-5.0); ANION GAP 16 mEq/L (8-16); CALCIUM 7.8 mg/dL (8.5-10.4); CARBON DIOXIDE 17 mEq/l (22-31); CHLORIDE 105 mEq/L (97-110); GLOMERULAR FILTRATION RATE 5; GLUCOSE 81 mg/dL (70-100); MAGNESIUM 1.9 mg/dL (1.6-2.3); SODIUM 138 mEq/L (134-144)
[2017-01-19 05:19] LABS: POTASSIUM 6.3 mEq/L (3.5-5.2)
[2017-01-19] MEDS ORDERED: Herbals/Supplements -Info Only PO SCH (09:00)
--- NOTE | 2017-01-19 09:37 | SOAPPROG ---
SOAP Progress Note Assessment/Plan: Assessment: 1. ESRD - -Pt is on HD this morning and had treatment last night, partial run last night to mitigate risk of DDS, full run today for improved clearance -Uremic symptoms at presentation are resolved -AVF appears to be working well -If no other medical concerns, would be ok for discharge home today, his info was given to residential case manager to help secure placement at local HD unit; pt given contact info as well; will need ongoing regular outpt HD to avoid repeat hospitalization, he was advised of the importance to make sure this is secured within the coming week 2. Hyperkalemia - -Improved after partial HD last night, should fully resolve after full treatment this morning -OK to check post-HD to confirm prior to hospital d/c 3. HTN - -Improved control s/p HD and hydralazine, though still above goal -Can give Amlodipine 10mg if still elevated post-HD -Will need ongoing monitoring/management in outpt setting 4. CKD-MBD - -Hyperphos reflects poor control with diet/binders -CaAcetate ordered while inpt -Will need ongoing monitoring/management in outpt setting 5. CKD anemia - -s/p EPO yesterday -Will need ongoing monitoring/management in outpt setting Plan: 01/19/17 09:35 01/19/17 09:39 Subjective: Seen and examined on HD. Tolerating well. Qb 400. Pt feels completely better. No complaints at this time. Objective: Vital Signs Temp Pulse Resp BP Pulse Ox 37.0 C 90 10 L 145/119 H 97 01/18/17 20:00 01/19/17 06:00 01/19/17 06:00 01/19/17 06:00 01/19/17 06:00 Laboratory Results 01/19/17 04:12 01/19/17 04:12 01/18/17 01/19/17 01/20/17 05:59 05:59 05:59 Intake Total 500 Output Total 2 Balance 498 Physical Exam - Physical Exam Neck: full range of motion Respiratory: lungs clear, normal breath sounds Cardiac/Chest: regular rate, rhythm Abdomen: normal bowel sounds, non-tender, soft Extremities: other (LUE AVF +br/thrill), No swelling ICD10 Worksheet Patient Problems: Problems Problem Status Onset ESRD (end stage renal disease) Acute Hyperkalemia Acute Left ankle sprain Acute Admission for dialysis Acute
[2017-01-19 11:05] VITALS: O2SAT 98
[2017-01-19 11:39] LABS: POTASSIUM 4.1 mEq/L (3.5-5.2)
[2017-01-19] MEDS ORDERED: HYDROCODONE/APAP 5/325 TAB PO ONE (12:15)
[2017-01-19 12:27] VITALS: BP 149/92; PULSE 84; RESP 16
--- NOTE | 2017-01-19 13:48 | GDS ---
[f rep st] DISCHARGE SUMMARY DIAGNOSIS: 1. Severe hyperkalemia. 2. Chronic renal failure, end-stage renal disease. 3. Elevated blood pressure. 4. Metabolic acidosis. 5. Anemia. CONSULTATIONS: Nephrology. PROCEDURES DONE: Hemodialysis. HOSPITAL COURSE: This patient is a 26-year-old man with a history of end-stage renal disease, on he modialysis, who presents with fatigue, malaise, and disorientation. He recently lost housing, and m cely to [place] about a week ago, and has not established care at the dialysis center here. His las t hemodialysis was approximately 10 days prior to this admission. On admission, was found to be sev erely hyperkalemic. He was dialyzed, and his potassium on the day of discharge is 4.1. Nephrology did help with his management throughout his stay. CONDITION ON DISCHARGE: Good. Vital signs are stable, although he is a little bit hypertensive wit h a blood pressure of 149/92. He is alert and oriented. He has no complaints, except for a headach e, which responded to some [place]. DISCHARGE MEDICATIONS: He will resume his home medications. FOLLOWUP INSTRUCTIONS: He needs to establish care at a [place] dialysis center. I will defer to Ne phrology, in case management can set that up before discharge. Total time spent with patient on day of discharge in coordination of care is 35 minutes. /[id number]/MODL
[2017-01-19 14:20] LABS: CREATININE 19.1 mg/dL (0.7-1.3)
[2017-01-19] MEDS ORDERED: HEPARIN 10,000 UNIT/10 ML MDV ONE (20:00)
== END 2017-01-19 14:05 | disposition home or self-care (01) | DRG 640 ==
LOC: F2N 15:38
PROVIDERS: ADMIT Internal Medicine; ATTEND Internal Medicine
PROC: 5A1D00Z (ICD-10-PCS; principal; 2017-01-18)
DX: E87.5 Hyperkalemia (principal); N18.6 End stage renal disease; D63.1 Anemia in chronic kidney disease; Q60.0 Renal agenesis, unilateral; S93.402A Sprain of unspecified ligament of left ankle, initial encounter; Y93.51 Activity, roller skating (inline) and skateboarding; F17.210 Nicotine dependence, cigarettes, uncomplicated; Z99.2 Dependence on renal dialysis
CPT/HCPCS: 82947-QW; 96365; J0360; J0610; J0885; J1170; J1644; J1815; L4350

== ENCOUNTER 2017-01-28 09:55 | Emergency (ER) | payer OTHER, MEDICAID ==
[2017-01-28 10:02] VITALS: RESP 16
--- NOTE | 2017-01-28 17:11 | EDPHY ---
H & P Time Seen by Provider: 01/28/17 10:39 HPI/ROS: CHIEF COMPLAINT: Pain left forearm HISTORY OF PRESENT ILLNESS: 26-year-old male presents to the emergency department by private vehicle with complaints of to palpable painful lumps to his left forearm. The patient is a dialysis patient and he was dialyzed yesterday. He is scheduled for dialysis tomorrow. He states that he has 2 areas of pain to the left mid forearm. He denies any known trauma or injury. Denies shortness of breath or chest pain. Denies headache. Denies any reported trauma. Denies paresthesias in upper extremities. REVIEW OF SYSTEMS: Constitutional: No fever, no chills. Eyes: No double or blurry vision. ENT: No sore throat. Respiratory: No cough, no shortness of breath. Cardiac: No chest pain. Gastrointestinal: No abdominal pain, vomiting or diarrhea. Genitourinary: No dysuria. Musculoskeletal: No neck or back pain. Skin: No rashes. Neurological: No headache. Past Medical/Surgical History: End-stage renal disease on dialysis Social History: Single Smoking Status: Current every day smoker Physical Exam: General Appearance: Alert, no distress. Blood pressure 155/100 Eyes: Pupils equal and round. Extraocular motions are all intact. ENT: Mouth: Mucous membranes moist. Respiratory: No wheezing, rhonchi, or rales, lungs are clear to auscultation. Cardiovascular: Regular rate and rhythm. Gastrointestinal: Abdomen is soft and nontender, no masses, no rebound or guarding, bowel sounds normal. Neurological: Alert and oriented x 3, cranial nerves II through XII grossly intact Skin: Warm and dry, no rashes. Musculoskeletal: Nontender to palpate along the cervical, thoracic or lumbar spine. Neck is supple. Extremities: Dialysis fistula palpated at the left volar aspect of the wrist. He has swelling just proximal to this as well. The left mid forearm is not swollen. He has to palpable lumps which are very tender to palpate to the volar aspect of the left mid forearm. No evidence of cellulitis. No redness or warmth. He has full range of motion of the left upper extremity. Left humerus is nontender. Full range of motion of his upper extremities. Normal gait. Psychiatric: Patient is oriented X 3, there is no agitation. Constitutional: Initial Vital Signs Temperature (C) 36.8 C 01/28/17 10:00 Heart Rate 85 01/28/17 10:00 Respiratory Rate 16 01/28/17 10:00 Blood Pressure 155/100 H 01/28/17 10:00 O2 Sat (%) 97 01/28/17 10:00 O2 Delivery Mode Room Air Allergies/Adverse Reactions: No Known Allergies Allergy (Verified 01/28/17 10:02) Home Medications: Medication Instructions Recorded Calcium Carbonate [Tums 500MG (*)] 500 mg PO TIDMEAL PRN 01/08/17 Medical Decision Making - Diagnostics Imaging Results: Imaging Impressions Extremity Ultrasound 01/28/17 11:02 Impression: 1. Left forearm subcutaneous fluid collection measuring 14 x 8 x 4 mm which may represent hematoma, abscess, or seroma. 2. Second palpable region corresponds to serpiginous coils probably within the previous coiled branch of a fistula with adjacent patent venous structure. Findings discussed with Emergency Department physician's pastrycook's assistant, Anne Choi, at 1400 hours, 01/28/2017. Final report concurs with initial preliminary interpretation. Imaging: Discussed imaging studies w/ accounts payable analyst Radiologist ED Course/Re-evaluation: 26-year-old male presents with concerns about 2 painful lumps in his left forearm. The patient is a dialysis patient. Ultrasound was ordered. The patient stayed for the ultrasound, however he did not want to wait for the results of his ultrasound because he wanted to get to work. His ultrasound revealed a small area of fluid collection as well as a coil. We attempted to contact the patient at the number he gave a since there was no answer. I do not think this patient has cellulitis or an abscess. I do not think antibiotics are indicated. The small fluid collection could represent complex fluid such as hematoma or seroma or possibly abscess, however clinically I do not think that this patient has an infection. There is no redness or warmth or signs of infection. Differential Diagnosis: Including but not limited to abscess, cellulitis, DVT, fistula Departure - Departure Disposition: Home, Routine, Self-Care Clinical Impression: Superficial fluid collection left forear Condition: Good Instructions: Continuous Ambulatory Peritoneal Dialysis (ED), End Stage Kidney Disease (ED) Additional Instructions: You should keep your scheduled dialysis appointment tomorrow. Return if you develop any swelling to your forearm, increasing pain or any other concerns.
[2017-01-28 19:59] VITALS: BP 119/74; PULSE 83; TEMP 97.9; O2SAT 94
== END 2017-01-28 14:47 | disposition home or self-care (01) ==
DX: R22.31 Localized swelling, mass and lump, right upper limb (principal); F17.200 Nicotine dependence, unspecified, uncomplicated

== ENCOUNTER 2017-02-25 11:31 | Emergency (ER) | payer OTHER, MEDICAID ==
[2017-02-25 11:37] VITALS: RESP 16
--- NOTE | 2017-02-25 12:44 | EDPHY ---
H & P Stated Complaint: pain with dialysis sticks, arm pain Source: Patient Exam Limitations: No limitations - Personal History Current Tetanus/Diphtheria Vaccine: Yes Current Tetanus Diphtheria and Acellular Pertussis (TDAP): Yes - Medical/Surgical History Hx Asthma: No Hx Chronic Respiratory Disease: No Hx Diabetes: No Hx Cardiac Disease: No Hx Renal Disease: Yes Hx Cirrhosis: No Hx Alcoholism: No Hx HIV/AIDS: No Hx Splenectomy or Spleen Trauma: No Other PMH: dialysis for renal dysfunction - Social History Smoking Status: Current every day smoker HPI/ROS: CHIEF COMPLAINT: Arm pain, and fistula pain HISTORY OF PRESENT ILLNESS: Patient complains of 1 week history of pain in the left forearm near his fistula. Gradual onset. Constant duration. Worse with palpation and movement. Moderate to severe pain. Difficulty with his dialysis over the past week as it has been very painful and reports that they have infiltrated with a attempt access. He has Saturday at [facility] and [place]. He has been on dialysis for 4 years. He has been at this location for 1 week. No other associated complaints or modifying factors. REVIEW OF SYSTEMS: Ten systems reviewed and are negative unless otherwise noted in the HPI PAST MEDICAL HISTORY: Chronic kidney disease, dependent on dialysis SOCIAL HISTORY: Smoker, just moved [place] FAMILY HISTORY: Noncontributory EXAMINATION General Appearance: Alert, no distress Head: normocephalic, atraumatic Eyes: Pupils equal and round, no conjunctival pallor or injection ENT, Mouth: Mucous membranes moist Neck: Normal inspection, supple, non-tender Respiratory: Lungs are clear to auscultation. No wheezing or rhonchi or crackles Cardiovascular: Regular rate and rhythm. No murmur. Pulses intact distally with symmetric radial pulses. There is a palpable thrill in the left forearm fistula distally. Skin: Warm and dry, no rash. No erythema. No edema. Extremities: Tender over the left forearm circumferentially. There is no edema. No erythema. No palpable cord or evidence of cellulitis. No evidence of septic joint. Range of motion of the left arm is intact and symmetric to the right. No evidence of DVT in the left upper extremity. Psychiatric: Mood and affect normal DIFFERENTIAL DIAGNOSES: Including but not limited to cellulitis, abscess, thrombosis, fistula failure MDM: 12:40 p.m. Left upper extremity pain near his fistula. Patient is due for dialysis today. He has had pain over the past week in the area. No numbness or tingling distally. No fever chills. No redness. Minimal swelling. Contacted the dialysis center and they and sent to our facility. 1:50 [address] by radiologist Dr. Torres. Ultrasound of the left upper extremity reveals no DVT. The official was widely patent. She suspected this may be steal phenomenon. She recommends that the patient obtain his dialysis today and then follow up with his surgeon for further care and possibility of revision. 2:00 p.m. I have notified the patient of these findings. I informed him that he should proceed immediately to dialysis. Informed that he should follow up with his original surgeon if able to do so. If not, he may follow up with our on-call surgeon Dr. Tena. He voices understanding of this. He is also to return to the ER for any worsening symptoms, numbness, tingling of the left hand. He is to return to ER for any cyanosis or pallor of the left hand. He is comfortable this plan and discharged home stable condition. SUPERVISION: Patient was evaluated in conjunction with the supervising physician. Please see their note for details. (Kulwinder Lehman) Constitutional: Initial Vital Signs Temperature (C) 97.7 F 02/25/17 11:34 Heart Rate 94 02/25/17 11:34 Respiratory Rate 16 02/25/17 11:34 Blood Pressure 141/68 H 02/25/17 11:34 O2 Sat (%) 95 02/25/17 11:34 O2 Delivery Mode Room Air Allergies/Adverse Reactions: No Known Allergies Allergy (Verified 01/29/17 14:24) Home Medications: Medication Instructions Recorded Calcium Carbonate [Tums 500MG (*)] 500 mg PO TIDMEAL PRN 01/08/17 Medical Decision Making - Diagnostics Imaging Results: Imaging Impressions Extremity Venous Study 02/25/17 12:45 Impression: 1. No clot in the venous system in the left arm. 2. Suspect steal syndrome or phenomenon from the fistula. I have asked the Emergency Department physician to ask the patient to get back in contact with his vascular surgeon regarding the possibility of this. Findings and recommendations discussed with Kulwinder Lehman PA-C at 1345 hours on February 25, 2017. Final report concurs with initial preliminary interpretation. Other Provider: PHYSICIAN DOCUMENTATION: The patient was evaluated and managed by the Physician Inspector Poising and myself. I have reviewed the chart and agree with the findings and plan of care as documented. In addition, I examined the patient myself. History confirmed as pain and pins and needles feeling in the distal portion of his left forearm fistula. Physical findings as follows: Thrill is present. He has normal motor and sensory and capillary refill in the left hand. Skin does not look red, it is not hot to the touch, he is not tender to palpation, no lymphangitis. I am the secondary supervising physician. 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 Continue to dialysis 2. Contact her original surgeon or Dr. Tena for follow-up on the fistula. 3. Return here for any worsening pain, redness, swelling, numbness of the hand Referrals: NONE *PRIMARY CARE P,. [Primary Care Provider] - As per Instructions Dani Tena MD [Medical Doctor] - As per Instructions
[2017-02-25 13:55] VITALS: BP 141/88; PULSE 75; TEMP 97.2; O2SAT 97
== END 2017-02-25 14:03 | disposition home or self-care (01) ==
DX: M79.632 Pain in left forearm (principal); N18.6 End stage renal disease; F17.200 Nicotine dependence, unspecified, uncomplicated; T82.898A Other specified complication of vascular prosthetic devices, implants and grafts, initial encounter; Y82.8 Other medical devices associated with adverse incidents

== ENCOUNTER 2017-03-05 07:23 | Day surgery (SDC) | payer OTHER, MEDICAID ==
[2017-03-05] MEDS ORDERED: NS 1,000 ML IV SCH (08:30)
[2017-03-05] MEDS ORDERED: FLUMAZENIL 0.5 MG/5 ML MDV IVP ONE (08:54)
[2017-03-05] MEDS ORDERED: NALOXONE HCL 0.4 MG/ML INJ ONE (08:54)
[2017-03-05] MEDS ORDERED: MIDAZOLAM 2 MG/2 ML VIAL ONE (08:55)
[2017-03-05] MEDS ORDERED: fentaNYL 100 MCG/2 ML INJ ONE ×2 (08:55→10:19)
[2017-03-05] MEDS ORDERED: IOPAMIDOL (ISOVUE-300) 100 ML BTL ONE (10:17)
[2017-03-05] MEDS ORDERED: ACETAMINOPHEN 325 MG TAB ONE (11:42)
[2017-03-05] MEDS ORDERED: oxyCODONE IR 5 MG TAB ONE (11:51)
[2017-03-05] MEDS ORDERED: ONDANSETRON 4 MG/2 ML VIAL IVP PRN (12:17)
[2017-03-05] MEDS ORDERED: oxyCODONE IR 5 MG TAB PO PRN (12:37)
== END 2017-03-05 12:25 | disposition home or self-care (01) ==
LOC: FIMAGING 07:23
PROVIDERS: ATTEND Internal Medicine Nephrology
PROC: 05HY33Z Insertion of Infusion Device into Upper Vein, Percutaneous Approach (ICD-10-PCS; principal; 2017-03-05 11:22)
PROC: 057Y3ZZ Dilation of Upper Vein, Percutaneous Approach (ICD-10-PCS; principal; 2017-03-05 11:22)
DX: T82.898A Other specified complication of vascular prosthetic devices, implants and grafts, initial encounter (principal); N28.9 Disorder of kidney and ureter, unspecified; Q60.0 Renal agenesis, unilateral; Z76.82 Awaiting organ transplant status; Z59.0 Homelessness
CPT/HCPCS: 36901; 36907; 99152; 99153; C1725; C1769; J1644; J2250; J2310; J3010; Q9967

== ENCOUNTER 2017-03-23 17:37 | Emergency (ER) | payer OTHER, MEDICAID ==
[2017-03-23 17:43] VITALS: BP 156/108; PULSE 101; RESP 18; TEMP 98.4; O2SAT 96
--- NOTE | 2017-03-23 18:10 | EDPHY ---
H & P Stated Complaint: Fell off skateboard;pain R arm@elbow;can't straighten arm Time Seen by Provider: 03/23/17 17:40 - Personal History Current Tetanus Diphtheria and Acellular Pertussis (TDAP): Yes - Medical/Surgical History Hx Asthma: No Hx Chronic Respiratory Disease: No Hx Diabetes: No Hx Cardiac Disease: No Hx Renal Disease: Yes Hx Cirrhosis: No Hx Alcoholism: No Hx HIV/AIDS: No Hx Splenectomy or Spleen Trauma: No Other PMH: dialysis for renal dysfunction - Social History Smoking Status: Current every day smoker Constitutional: Initial Vital Signs Temperature (C) 36.9 C 03/23/17 17:38 Heart Rate 101 H 03/23/17 17:38 Respiratory Rate 18 03/23/17 17:38 Blood Pressure 156/108 H 03/23/17 17:38 O2 Sat (%) 96 03/23/17 17:38 O2 Delivery Mode Room Air Allergies/Adverse Reactions: No Known Allergies Allergy (Verified 03/23/17 17:38) Home Medications: Medication Instructions Recorded NK [No Known Home Meds] 03/23/17 Medical Decision Making ED Course/Re-evaluation: CHIEF COMPLAINT: Left elbow injury HISTORY OF PRESENT ILLNESS: The patient is a 26 y/o male arriving with his parents complaining of left elbow pain secondary to falling off his skateboard this afternoon. He describes a mechanical fall and denies striking his head, losing consciousness, weakness, paresthesias, or other injuries. He has pain with range of motion of his right elbow that radiates up his arm. His shoulder and wrist are uninjured. He denies pertinent medical history. REVIEW OF SYSTEMS: A 10 point review of systems was performed and is negative with the exception of the elements mentioned in the history of present illness. PHYSICAL EXAM: HR, BP, O2 Sat, RR. Temp noted General Appearance: Alert, well hydrated, appropriate, and non-toxic appearing. Head: Atraumatic without scalp tenderness or obvious injury Eyes: Pupils equal, round, reactive to light and accommodation, EOMI, no trauma , no injection. Nose: Atraumatic, no rhinorrhea, clear. Throat: Mucus membranes moist. Neck: Supple, non-tender, no lymphadenopathy. Respiratory: No retractions, no distress, no wheezes, and no accessory muscle use. Lungs are clear to auscultation bilaterally. Cardiovascular: Regular rate and rhythm, no murmurs, rubs, or gallops. Left radial pulses intact. Good capillary refill all extremities. Gastrointestinal: Abdomen is soft, non-tender, non-distended, no masses, no rebound, no guarding, no peritoneal signs. Musculoskeletal: Abrasion to dorsal surface of proximal forearm. Pain with ROM of right elbow. Otherwise normal active ROM of all extremities, atraumatic. Neurological: Alert, appropriate, and interactive. Nonfocal neuro exam. Skin: No rashes, good turgor, no nodules on palpation. PAST MEDICAL HISTORY: Denies PAST SURGICAL HISTORY: Denies SOCIAL HISTORY: Daily cigarette use. Parents at bedside. DIAGNOSTICS/PROCEDURES/CRITICAL CARE TIME: Right elbow x-ray: soft tissue swelling over ulna, no foreign body, anterior fat pad sign without posterior fat pad sign, no fracture DIFFERENTIAL DIAGNOSIS: The differential diagnosis for the patient's elbow injury included but was not limited to abrasion, fracture, ligamentous injury, contusion, muscular strain, and dislocation. MEDICAL DECISION MAKING: This is a 26 y/o male who presents with an isolated abrasion to his right elbow secondary to a fall this afternoon. There is no evidence of dislocation or joint disruption. He is neurovascularly intact. His x-ray is negative for fracture. He will be discharged with standard abrasion care instructions. Return precautions given. He is comfortable with this plan. Departure - Departure Disposition: Home, Routine, Self-Care Clinical Impression: Elbow abrasion Qualifiers: Encounter type: initial encounter Laterality: right Qualified Code(s): S50.311A - Abrasion of right elbow, initial encounter Condition: Good Instructions: Abrasion (ED) Additional Instructions: 1. Apply ice to sore areas. Expect to feel more sore tomorrow. 2. Use ibuprofen and Tylenol as directed on the packaging as needed for pain for the next 2-3 days. 3. Follow up with orthopedist for unimproved symptoms over the next week. Referrals: NONE *PRIMARY CARE P,. [Primary Care Provider] - As per Instructions [facility],. [Clinic] - As per Instructions Timi Washington MD [Medical Doctor] - As per Instructions Report Scribed for: Lawrence Muro Report Scribed by: Debbie Zhou Date of Report: 03/23/17 Time of Report: 18:10
== END 2017-03-23 18:28 | disposition home or self-care (01) ==
DX: S50.311A Abrasion of right elbow, initial encounter (principal); F17.200 Nicotine dependence, unspecified, uncomplicated; V00.131A Fall from skateboard, initial encounter; Y93.51 Activity, roller skating (inline) and skateboarding
CPT/HCPCS: 73080; 73090; 99283; A4565

== ENCOUNTER 2017-04-11 06:56 | Emergency (ER) | payer OTHER, MEDICAID ==
--- NOTE | 2017-04-11 07:37 | EDPHY ---
H & P Stated Complaint: Broke tooth last night, difficulty in eating and pain. Time Seen by Provider: 04/11/17 07:22 HPI/ROS: Chief Complaint: Tooth pain HPI: 26-year-old male with a history of end-stage renal disease on hemodialysis is presenting complaining of left lower tooth pain. Patient states that he was showing last night and his posterior molar broke off. He has had having pain with chewing since then. Patient is also having pain in his right lower molar for about the last month. He has been using a lot of Orajel without relief. Has not followed up with a dentist because he does not have dental insurance and believes he cannot pay for it. No fevers or chills. No nausea or vomiting. ROS: 10 point Review of Systems is negative except as noted in the HPI. PMH: End-stage renal disease, on hemodialysis Social History: Positive smoking, no alcohol, no recreational drug use Family History: non-contributory Physical Exam: Gen: Awake, Alert, No Distress HEENT: Nose: no rhinorrhea Eyes: PERRLA, EOMI Mouth: Poor dentition. He has got prominent caries in the bilateral lower posterior molars. There is no erythema. There is no fluctuance. There is no discharge. No trismus Skin: no rash Neuro: CN II-XII intact, Sensation grossly intact, Strength 5/5 in bilateral upper and lower extremities - Personal History Current Tetanus Diphtheria and Acellular Pertussis (TDAP): Yes - Medical/Surgical History Hx Asthma: No Hx Chronic Respiratory Disease: No Hx Diabetes: No Hx Cardiac Disease: No Hx Renal Disease: Yes Hx Cirrhosis: No Hx Alcoholism: No Hx HIV/AIDS: No Hx Splenectomy or Spleen Trauma: No Other PMH: dialysis for renal dysfunction. HTN - Social History Smoking Status: Current every day smoker Constitutional: Initial Vital Signs Temperature (C) 36.6 C 04/11/17 07:03 Heart Rate 92 04/11/17 07:03 Respiratory Rate 16 04/11/17 07:03 Blood Pressure 197/127 H 04/11/17 07:03 O2 Sat (%) 92 04/11/17 07:03 O2 Delivery Mode Room Air Allergies/Adverse Reactions: No Known Allergies Allergy (Verified 03/23/17 17:38) Home Medications: Medication Instructions Recorded NK [No Known Home Meds] 03/23/17 Medical Decision Making ED Course/Re-evaluation: 26-year-old male with poor dentition and dental caries with a fractured teeth. Does not have a dry socket. No evidence of infection at this pain is secondary to his new fractures. Will give him a to go pack here and referral to dental aid for follow-up. Departure - Departure Disposition: Home, Routine, Self-Care Clinical Impression: Tooth pain Condition: Good Instructions: Dental Caries (ED), Toothache (ED), Hydrocodone/Acetaminophen ( By mouth) Additional Instructions: Follow up with dental aid, call today for next available appointment. Referrals: Dental Aid [Outside] - As per Instructions
[2017-04-11] MEDS ORDERED: HYDROCOD/APAP 5/325 PREPACK#6 BTL TAKEHOME ONE (07:39)
[2017-04-11 07:49] VITALS: BP 166/89; PULSE 87; RESP 20; TEMP 98.6; O2SAT 94
== END 2017-04-11 07:49 | disposition home or self-care (01) ==
DX: K08.89 Other specified disorders of teeth and supporting structures (principal); I12.0 Hypertensive chronic kidney disease with stage 5 chronic kidney disease or end stage renal disease; N18.6 End stage renal disease; Z99.2 Dependence on renal dialysis

== ENCOUNTER 2017-04-18 08:28 | Emergency (ER) | payer OTHER, MEDICAID ==
[2017-04-18 08:34] VITALS: TEMP 98.6
[2017-04-18] MEDS ORDERED: IPRATROPIUM/ALBUTEROL 3 ML DEYVIAL IH ONE (09:09)
--- NOTE | 2017-04-18 09:19 | EDPHY ---
H & P Stated Complaint: Prod cough x 2 days;also has R hand inj yesterday;h/a since dialysis 04/17/17 - Personal History Current Tetanus Diphtheria and Acellular Pertussis (TDAP): Yes - Medical/Surgical History Hx Asthma: No Hx Chronic Respiratory Disease: No Hx Diabetes: No Hx Cardiac Disease: No Hx Renal Disease: Yes Hx Cirrhosis: No Hx Alcoholism: No Hx HIV/AIDS: No Hx Splenectomy or Spleen Trauma: No Other PMH: dialysis for renal dysfunction. HTN (untreated) - Social History Smoking Status: Current every day smoker Time Seen by Provider: 04/18/17 09:01 HPI/ROS: CHIEF COMPLAINT: Right hand pain. Cough. HISTORY OF PRESENT ILLNESS: 26-year-old male history of end-stage renal disease , Saturday dialysis schedule at [facility] in [place], in the ER with 2 complaints. 1st complaint is acute right hand pains, specifically thumb and thenar eminence , after he sustained a mechanical fall off of his skateboard and he was leaving his dialysis yesterday (Saturday). No head injury. Impacted his right hand. He has reproducible pain with range of motion and palpation of the hand as well as abrasion to the hand. Tetanus up-to-date. 2nd complaint is 2 days of nonproductive cough. History of regular cigarette use. No chest pain. No fevers. No nausea or vomiting. No myalgias. No arthralgias. No nuchal rigidity. REVIEW OF SYSTEMS: A ten point review of systems was performed and is negative with the exception of the items mentioned in the HPI PAST MEDICAL & SURGICAL HISTORY: End-stage renal disease SOCIAL HISTORY: daily cigarette use PHYSICAL EXAM (Prior to examination, patient consented to physical exam, hands were washed and my usual and customary physical exam procedures followed) 1) GENERAL: Well-developed, well-nourished, alert and oriented. Appears to be in no acute distress. 2) HEAD: Normocephalic, atraumatic 3) HEENT: Pupils equal, round, reactive to light bilaterally. Sclera anicteric. Nasopharynx, oropharynx, clear, no lesions. No tonsillar enlargement tonsillar exudate. Moist mucous membranes Ears bilaterally with normal tympanic membranes. 4) NECK: Full range of motion, no meningeal signs. 5) LUNGS: bilateral end-expiratory wheeze. No retractions or accessory muscle use. 6) HEART: Regular rate and rhythm, no murmur, no heave, no gallop. 7) ABDOMEN: No guarding, no rebound, no focal tenderness, negative McBurney's, negative Khan's, negative Rovsing's, negative peritoneal sign, 8) MUSCULOSKELETAL: Right hand: Tender to palpation right thenar eminence and right thumb with abrasions noted. No signs of infectious tenosynovitis or infection. No signs of cellulitis. Wrist is nontender including anatomic snuffbox. Proximally nontender. Radial ulnar median nerve function intact. Otherwise, Moving all extremities, no focal areas of tenderness, no obvious trauma. No peripheral edema or discoloration. 9) BACK: abrasion to the right lumbar region with no underlying midline pain. No midline trauma No CVA tenderness, no midline vertebral tenderness, no fluctuance, no step-off, no obvious trauma, no visual or palpable abnormality. 10) SKIN: abrasion to right hand and right back 11) Psychiatric: Patient is oriented X 3, there is no agitation. DIFFERENTIAL DIAGNOSIS: In no particular include but limited to fracture, sprain, dislocation, pneumonia, bronchitis (Carla Rhodes) Constitutional: Initial Vital Signs Temperature (C) 37 C 04/18/17 08:29 Heart Rate 108 H 04/18/17 08:29 Respiratory Rate 18 04/18/17 08:29 Blood Pressure 179/115 H 04/18/17 08:29 O2 Sat (%) 94 04/18/17 08:29 O2 Delivery Mode Room Air Allergies/Adverse Reactions: No Known Allergies Allergy (Verified 04/18/17 08:29) Home Medications: Medication Instructions Recorded AZITHROMYCIN [Z-PACK] 500 mg PO DAILY #1 packet 04/18/17 Albuterol [Proventil Inhaler HFA 1 - 2 puffs IH Q4PRN PRN #1 mdi 04/18/17 (*)] oxyCODONE/APAP 5/325 [Percocet 1 tab PO Q6 #10 tab 04/18/17 5/325] Medical Decision Making - Diagnostics Imaging Results: Images reviewed by myself (Carla Rhodes) ED Course/Re-evaluation: 10:03 a.m.: Re-evaluation after DuoNeb treatment. States that he is feeling improvement. Lungs are clear bilaterally. Reviewed his x-ray showing a early infiltrate. Plan will be starting the patient on azithromycin and close follow up with his primary care provider leave specialist. Regarding his right hand, specifically thumb pain, have explained him that there is no definitive osseous abnormality visualized on x-ray. He has no signs of compartment syndrome of the hand, no signs of infection to the abrasions. He has been splinted in a thumb spica splint explained that occult fracture not ruled out. Recommend hand surgery follow-up. He feels comfortable with this plan. The case was discussed with secondary supervising physician Dr. Mirta Khan ([facility]) Other Provider: The patient was evaluated and managed by the Physician [employer] Licensee/ Nurse Practitioner. I discussed the patient's presentation and course with the midlevel provider with them and agree with the evaluation. My co-signature indicates that I have reviewed this chart and I agree with the findings and plan of care as documented. I am the secondary supervising physician. (Mirta Khan) - Data Points Medications Given: Discontinued Medications Albuterol/Ipratropium (Duoneb) 3 ml IH EDNOW ONE Stop: 04/18/17 09:10 Last Admin: 04/18/17 09:33 Dose: 3 ml Departure - Departure Disposition: Home, Routine, Self-Care Clinical Impression: Pneumonia, Acute bronchitis, Right hand pain Condition: Good Instructions: Acute Bronchitis (ED), Bacterial Pneumonia (ED), Hand Sprain (ED) Additional Instructions: Return to the ER immediately if you experience discoloration, have worsening pain, numbness, tingling, or any other symptoms that concern you. If you received x-rays in the emergency department today, be advised, that ligamentous , tendon, muscular, and other non-bony injury cannot be fully ruled out. Try to keep your affected extremity elevated above the level of your chest, and keep cold packs on the affected area, for the next 48 hours. Return to the ER if you develop chest pain, shortness of breath or any other symptoms that concern you. Referrals: Timi Payne MD [Medical Doctor] - 5-7 days, call for appt. (Dr. Payne is a hand surgeon) Prescriptions: Albuterol [Proventil Inhaler HFA (*)] 1 - 2 puffs IH Q4PRN PRN #1 mdi PRN Reason: Cough, Moderate AZITHROMYCIN [Z-PACK] 500 mg PO DAILY #1 packet oxyCODONE/APAP 5325 [Percocet 5/325] 1 tab PO Q6 #10 tab
[2017-04-18 11:00] VITALS: BP 158/94; PULSE 98; RESP 20; O2SAT 96
== END 2017-04-18 11:00 | disposition home or self-care (01) ==
DX: S69.91XA Unspecified injury of right wrist, hand and finger(s), initial encounter (principal); V00.131A Fall from skateboard, initial encounter; Y99.8 Other external cause status; Y93.51 Activity, roller skating (inline) and skateboarding; J18.9 Pneumonia, unspecified organism; J20.9 Acute bronchitis, unspecified; I12.0 Hypertensive chronic kidney disease with stage 5 chronic kidney disease or end stage renal disease; N18.6 End stage renal disease; Z99.2 Dependence on renal dialysis

== ENCOUNTER 2017-04-24 02:56 | Emergency (ER) | payer OTHER, MEDICAID ==
[2017-04-24] MEDS ORDERED: IPRATROPIUM/ALBUTEROL 3 ML DEYVIAL IH ONE (03:11)
[2017-04-24 04:10] LABS: % IMMATURE GRANULYOCYTES 0.3 % (0.0-1.1); ABSOLUTE IMMATURE GRANULOCYTES 0.03 10^3/uL (0.00-0.10); ADD DIFF? NO; ADD MORPH? NO; ADD SCAN? NO; ATYPICAL LYMPHOCYTE FLAG 10 (0-99); FRAGMENT RBC FLAG 0 (0-99); HEMATOCRIT 23.3 % (40.0-51.0); HEMOGLOBIN 7.4 g/dL (13.7-17.5); LEFT SHIFT FLG 0 (0-99); LIPEMIA HEMOLYSIS FLAG 80 (0-99); MEAN CELL HEMOGLOBIN 29.6 pg (27.9-34.1); MEAN CELL HEMOGLOBIN CONCENTR. 31.8 g/dL (32.4-36.7); MEAN CELL VOLUME 93.2 fL (81.5-99.8); MEAN PLATELET VOLUME 9.5 fL (8.7-11.7); PLATELET CLUMPS FLAG 0 (0-99); PLATELET COUNT 214 10^3/uL (150-400); RED CELL DISTRIBUTION WIDTH 14.2 % (11.5-15.2)
--- NOTE | 2017-04-24 04:17 | EDPHY ---
H & P Stated Complaint: QUIGLEY, cough, short of breath Time Seen by Provider: 04/24/17 03:06 HPI/ROS: Chief Complaint: Shortness of breath HPI: 26-year-old male with a history of end-stage renal disease secondary to congenital single kidney with complications presenting with 1 week of cough and shortness of breath. Patient last had his dialysis 5 days ago. He missed 2 days ago because he was coughing did not feel well. Denies any fevers or chills. He is bringing up some green to yellowish sputum. No nausea or vomiting. Patient states that he does not get fluid overload or edematous in that he is still making urine. ROS: 10 point Review of Systems is negative except as noted in the HPI. PMH: End-stage renal disease Medications: None Allergies: None Social History: Positive for smoking, no alcohol, no recreational drug use Family History: non-contributory Physical Exam: Gen: Awake, Alert, No Distress HEENT: Nose: no rhinorrhea Eyes: PERRLA, EOMI Mouth: Moist mucosa Neck: Supple, no JVD Chest: nontender, diffuse expiratory wheezing, no focal rales or rhonchi Heart: S1, S2 normal, no murmur Abd: Soft, non-tender, no guarding Back: no CVA tenderness, no midline tenderness Ext: no edema, non-tender Skin: no rash Neuro: CN II-XII intact, Sensation grossly intact, Strength 5/5 in bilateral upper and lower extremities - Personal History Current Tetanus/Diphtheria Vaccine: Yes - Medical/Surgical History Hx Asthma: No Hx Chronic Respiratory Disease: No Hx Diabetes: No Hx Cardiac Disease: No Hx Renal Disease: Yes Hx Cirrhosis: No Hx Alcoholism: No Hx HIV/AIDS: No Hx Splenectomy or Spleen Trauma: No Other PMH: PMHx: dialysis for renal dysfunction, HTN (untreated). PSHx: gallbladder, fistula, other dialysis surgery - Social History Smoking Status: Current every day smoker Constitutional: Initial Vital Signs Temperature (C) 36.9 C 04/24/17 02:59 Heart Rate 106 H 04/24/17 02:59 Respiratory Rate 19 04/24/17 02:59 Blood Pressure 183/125 H 04/24/17 02:59 O2 Sat (%) 92 04/24/17 02:59 O2 Delivery Mode Room Air Allergies/Adverse Reactions: No Known Allergies Allergy (Verified 04/18/17 08:29) Home Medications: Medication Instructions Recorded NK [No Known Home Meds] 04/24/17 Medical Decision Making - Diagnostics Imaging Results: Chest x-ray consistent with fluid overload. No focal infiltrates. This is my interpretation. Imaging: I viewed and interpreted images myself ED Course/Re-evaluation: 26-year-old male with cough and shortness of breath. Chest x-ray is consistent with fluid overload. He is afebrile. He has not have a white count. He is scheduled for his dialysis at 4 4 this morning. I think his best option for treating him is getting him directly to his dialysis. He did miss his dialysis on Saturday so has been 5 days. No other sign or symptoms suggestive of an acute infectious process. He is oxygenating adequately. His vital signs otherwise are okay. Will discharge with follow-up with his heading pinner. He has been given a g of Tylenol for his headache. - Data Points Laboratory Results: Laboratory Results 04/24/17 04:00 04/24/17 04/24/17 04:00 04:00 WBC 8.90 10^3/uL 10^3/uL (3.80-9.50) RBC 2.50 10^6/uL L 10^6/uL (4.40-6.38) Hgb 7.4 g/dL L g/dL (13.7-17.5) Hct 23.3 % L % (40.0-51.0) MCV 93.2 fL fL (81.5-99.8) MCH 29.6 pg pg (27.9-34.1) MCHC 31.8 g/dL L g/dL (32.4-36.7) RDW 14.2 % % (11.5-15.2) Plt Count 214 10^3/uL 10^3/uL (150-400) MPV 9.5 fL fL (8.7-11.7) Neut % (Auto) 72.5 % % (39.3-74.2) Lymph % (Auto) 18.8 % % (15.0-45.0) [place] % (Auto) 5.2 % % (4.5-13.0) Eos % (Auto) 2.6 % % (0.6-7.6) Baso % (Auto) 0.6 % % (0.3-1.7) Nucleat RBC Rel Count 0.0 % % (0.0-0.2) Absolute Neuts (auto) 6.46 10^3/uL 10^3/uL (1.70-6.50) Absolute Lymphs (auto) 1.67 10^3/uL 10^3/uL (1.00-3.00) Absolute Monos (auto) 0.46 10^3/uL 10^3/uL (0.30-0.80) Absolute Eos (auto) 0.23 10^3/uL 10^3/uL (0.03-0.40) Absolute Basos (auto) 0.05 10^3/uL 10^3/uL (0.02-0.10) Absolute Nucleated RBC 0.00 10^3/uL 10^3/uL (0-0.01) Immature Gran % 0.3 % % (0.0-1.1) Immature Gran # 0.03 10^3/uL 10^3/uL (0.00-0.10) Sodium Pending Potassium Pending Chloride Pending Carbon Dioxide Pending Anion Gap Pending BUN Pending Creatinine Pending Estimated GFR Pending Glucose Pending Calcium Pending Total Bilirubin Pending AST Pending ALT Pending Alkaline Phosphatase Pending Total Protein Pending Albumin Pending Medications Given: Discontinued Medications Albuterol/Ipratropium (Duoneb) 3 ml IH EDNOW ONE Stop: 04/24/17 03:12 Last Admin: 04/24/17 03:18 Dose: 3 ml Departure - Departure Disposition: Home, Routine, Self-Care Clinical Impression: Renal failure, Fluid overload Condition: Good Instructions: End Stage Kidney Disease (ED) Additional Instructions: Go directly to your hemodialysis this morning. Return to the emergency department for increasing shortness of breath, fevers, chills, worsening cough, or any other concerns. Referrals: NONE *PRIMARY CARE P,. [Primary Care Provider] - As per Instructions
[2017-04-24 04:32] LABS: ALANINE AMINOTRANSFERASE 35 IU/L (21-72); ALBUMIN 3.8 g/dL (3.5-5.0); ALKALINE PHOSPHATASE 90 IU/L (38-126); ANION GAP 25 mEq/L (8-16); ASPARTATE AMINOTRANSFERASE 14 IU/L (17-59); BILIRUBIN,TOTAL 0.8 mg/dL (0.1-1.4); CALCIUM 7.7 mg/dL (8.5-10.4); CARBON DIOXIDE 17 mEq/l (22-31); CHLORIDE 100 mEq/L (97-110); GLUCOSE 94 mg/dL (70-100); POTASSIUM 5.2 mEq/L (3.5-5.2); SODIUM 142 mEq/L (134-144); TOTAL PROTEIN 6.1 g/dL (6.3-8.2)
[2017-04-24 04:52] LABS: GLOMERULAR FILTRATION RATE 3
[2017-04-24 04:53] LABS: CREATININE 18.9 mg/dL (0.7-1.3)
[2017-04-24 04:54] VITALS: BP 148/90; PULSE 82; RESP 18; TEMP 97.9; O2SAT 94
== END 2017-04-24 04:54 | disposition home or self-care (01) ==
DX: E87.70 Fluid overload, unspecified (principal); I12.0 Hypertensive chronic kidney disease with stage 5 chronic kidney disease or end stage renal disease; N18.6 End stage renal disease; F17.200 Nicotine dependence, unspecified, uncomplicated

== ENCOUNTER 2017-04-26 09:49 | Observation (INO) | payer OTHER, MEDICAID ==
--- NOTE | 2017-04-26 10:34 | EDPHY ---
General - History Smoking Status: Current every day smoker Narrative: CHIEF COMPLAINT: Shortness of breath, cough HISTORY OF PRESENT ILLNESS: Patient complains of shortness of breath and cough. Symptoms started 2 days ago. The constant duration. Worse at night and when laying down. Minimal improvement with rest and sitting up. Questionable fever. No chills. No nausea or vomiting. No chest pain but he does have a painful cough and painful inspiration. No recent travel or surgery. He was at hemodialysis this morning with abnormal vital signs including hypoxemia. Thus they sent him to this department. They did give him Tylenol, Robitussin and clonidine due to elevated blood pressure. History of solitary kidney congenitally with complications resulting in hemodialysis starting 4 years ago. He dialyzes Saturday at [facility]. No other associated complaints or modifying factors REVIEW OF SYSTEMS: Ten systems reviewed and are negative unless otherwise noted in the HPI PAST MEDICAL HISTORY: Solitary kidney with subsequent kidney failure. Requires hemodialysis. Saturday dialysis at [facility] for hypertension on propanolol PAST SURGICAL HISTORY: Left forearm fistula, PD catheter status post removal, cholecystectomy SOCIAL HISTORY: Half pack per day smoker. Occasional alcohol. Lives [place] in [place] FAMILY HISTORY: Noncontributory EXAMINATION General Appearance: Alert, no distress Head: normocephalic, atraumatic Eyes: Pupils equal and round, no conjunctival pallor or injection ENT, Mouth: Mucous membranes moist. Airway patent Neck: Normal inspection, supple, non-tender Respiratory: Coarse rhonchi with dry crackles in consolidation. No crackles at the base. No distress. Mild tachypnea Cardiovascular: Tachycardic rate with regular rhythm. Pulses intact distally. There is a palpable thrill to the left forearm fistula. Gastrointestinal: Abdomen is soft and nontender Back: non-tender, no bony abnormalities Neurological: A&O, nonfocal, normal gait Skin: Warm and dry, no rash Extremities: Nontender, no pedal edema Psychiatric: Mood and affect normal DIFFERENTIAL DIAGNOSES: Including but not limited to sepsis, pneumonia, influenza, volume overload, bronchitis, PE MDM: 10:30 a.m. Cough and shortness of breath in a patient who is on hemodialysis but was dialyzed this morning. His examination suggest the possibility of pneumonia. He is tachycardic, tachypneic, hypoxemic, thus I did order sepsis laboratory studies. He is in no acute distress. 2 L nasal cannula has corrected the hypoxemia. Laboratory studies and chest x-ray are pending. 11:10 a.m. Patient has been evaluated by Dr. Kiran. Labs pending. CXR does not reveal a definite pneumonia but we will discuss with radiology. 11:15 a.m. Case discussed with hospitalist Dr. Israel. Patient has been admitted to Dr. Ni. He is admitted in stable condition on 2 L nasal cannula. Flu tests are pending at this time. Antibiotics were not started as he has no white count, no fever, normal lactic acid and no definite pneumonia appreciated on chest x- ray. 12:40 p.m. Chemistry has just now returned. Potassium is within normal limits. BNP is significantly elevated at 76,600. Case discussed with the [facility]. He will be admitted to a PCU bed rather than med surge bed due to the hypervolemia. 12:53 p.m. Case discussed with [facility]. Nephrology will try consultation and determine whether the patient needs to be dialyzed again today or tomorrow. ( Kulwinder Lehman) Medical Decision Making: PHYSICIAN DOCUMENTATION: The patient was evaluated and managed by the Physician Biological Science Technician and myself. I have reviewed the chart and agree with the findings and plan of care as documented. In addition, I examined the patient myself at 1100. History confirmed as dialysis history, nonproductive cough and dyspnea for several days. Physical findings as follows: Noted to be hypoxic with oxygen saturation in the mid 80s. Bilateral wheezing. Patient has bilateral interstitial lung disease. Differential is broad and includes but not limited to a post viral infection, pneumonitis, volume overload. He does not have a documented fever and his white blood cell count is normal. At this point I think the diagnosis of pneumonia would be less likely than other things, will admit for further workup of hypoxemia, no antibiotics at this time. Supportive care. Needs admission for hypoxia. I am the secondary supervising physician. (Chato Kiran) - Diagnostics Imaging Results: Imaging Impressions Chest X-Ray 04/26/17 10:31 Impression: Improvement in interstitial edema pattern, compared to 04/24/2017. Given the history of dialysis and borderline-cardiomegaly, a component of resolving fluid overload should also be considered (in addition to a virally- mediated interstitial process). - Objective Vital Signs: Initial Vital Signs Temperature (C) 37.2 C 04/26/17 09:57 Heart Rate 116 H 04/26/17 09:57 Respiratory Rate 22 H 04/26/17 09:57 Blood Pressure 177/107 H 04/26/17 09:57 O2 Sat (%) 84 L 04/26/17 09:57 O2 Delivery Mode Nasal Cannula O2 (L/minute) 2 Allergies/Adverse Reactions: No Known Allergies Allergy (Verified 04/18/17 08:29) Home Medications: Medication Instructions Recorded Propranolol HCl [Inderal 40mg (*)] 40 mg PO BID 04/26/17 oxyCODONE/APAP 5/325 [Percocet 1 tab PO DAILY PRN 04/26/17 5325 (*)] Laboratory Results: Laboratory Results 04/26/17 10:38 04/26/17 10:38 04/26/17 04/26/17 04/26/17 10:38 10:38 10:38 WBC 7.05 10^3/uL 10^3/uL (3.80-9.50) RBC 2.44 10^6/uL L 10^6/uL (4.40-6.38) Hgb 7.3 g/dL L g/dL (13.7-17.5) Hct 22.2 % L % (40.0-51.0) MCV 91.0 fL fL (81.5-99.8) MCH 29.9 pg pg (27.9-34.1) MCHC 32.9 g/dL g/dL (32.4-36.7) RDW 14.1 % % (11.5-15.2) Plt Count 249 10^3/uL 10^3/uL (150-400) MPV 9.5 fL fL (8.7-11.7) Neut % (Auto) 79.0 % H % (39.3-74.2) Lymph % (Auto) 14.3 % L % (15.0-45.0) [place] % (Auto) 5.2 % % (4.5-13.0) Eos % (Auto) 0.6 % % (0.6-7.6) Baso % (Auto) 0.6 % % (0.3-1.7) Nucleat RBC Rel Count 0.0 % % (0.0-0.2) Absolute Neuts (auto) 5.57 10^3/uL 10^3/uL (1.70-6.50) Absolute Lymphs (auto) 1.01 10^3/uL 10^3/uL (1.00-3.00) Absolute Monos (auto) 0.37 10^3/uL 10^3/uL (0.30-0.80) Absolute Eos (auto) 0.04 10^3/uL 10^3/uL (0.03-0.40) Absolute Basos (auto) 0.04 10^3/uL 10^3/uL (0.02-0.10) Absolute Nucleated RBC 0.00 10^3/uL 10^3/uL (0-0.01) Immature Gran % 0.3 % % (0.0-1.1) Immature Gran # 0.02 10^3/uL 10^3/uL (0.00-0.10) PT 15.3 SEC H SEC (12.0-15.0) INR 1.21 H (0.83-1.16) APTT 34.3 SEC SEC (23.0-38.0) VBG Lactic Acid Sodium 141 mEq/L mEq/L (134-144) Potassium 3.9 mEq/L mEq/L (3.5-5.2) Chloride 93 mEq/L L mEq/L (97-110) Carbon Dioxide 35 mEq/l H D mEq/l (22-31) Anion Gap 13 mEq/L mEq/L (8-16) BUN 22 mg/dL mg/dL (7-23) Creatinine 5.4 mg/dL H D mg/dL (0.7-1.3) Estimated GFR 13 Glucose 108 mg/dL H mg/dL (70-100) Calcium 9.0 mg/dL D mg/dL (8.5-10.4) Phosphorus Magnesium Total Bilirubin 0.9 mg/dL mg/dL (0.1-1.4) NT-Pro-B Natriuret Pep 60480 pg/mL H pg/mL (0-125) 04/26/17 04/26/17 10:38 10:35 WBC RBC Hgb Hct MCV MCH MCHC RDW Plt Count MPV Neut % (Auto) Lymph % (Auto) [place] % (Auto) Eos % (Auto) Baso % (Auto) Nucleat RBC Rel Count Absolute Neuts (auto) Absolute Lymphs (auto) Absolute Monos (auto) Absolute Eos (auto) Absolute Basos (auto) Absolute Nucleated RBC Immature Gran % Immature Gran # PT INR APTT VBG Lactic Acid 1.0 mmol/L mmol/L (0.7-2.1) Sodium Potassium Chloride Carbon Dioxide Anion Gap BUN Creatinine Estimated GFR Glucose Calcium Phosphorus 4.2 mg/dL mg/dL (2.5-4.5) Magnesium 1.9 mg/dL mg/dL (1.6-2.3) Total Bilirubin NT-Pro-B Natriuret Pep Microbiology Results: MICROBIOLOGY 04/26/17 11:00 Nasal, Sinus - Swab Respiratory Panel (PCR) - Final Human Rhinovirus/Enterovirus Medications Given: Albuterol/Ipratropium (Duoneb) 3 ml IH Q6HRS BRANDY Stop: 10/23/17 17:59 Last Admin: 04/26/17 16:32 Dose: 3 ml Discontinued Medications Albuterol/Ipratropium (Duoneb) 3 ml IH EDNOW ONE Stop: 04/26/17 10:54 Last Admin: 04/26/17 11:06 Dose: 3 ml Morphine Sulfate (Morphine) 4 mg IVP EDNOW ONE Stop: 04/26/17 10:59 Last Admin: 04/26/17 11:06 Dose: 4 mg Oxycodone/Acetaminophen (Percocet 5/325) 1 tab PO DAILY PRN PRN Reason: days of dialysis Stop: 05/06/17 13:53 Last Admin: 04/26/17 15:05 Dose: 1 tab Departure - Departure Disposition: [facility] Clinical Impression: Hypoxemia, Shortness of breath, CKD (chronic kidney disease) stage V requiring chronic dialysis Condition: Good
[2017-04-26 10:47] LABS: % IMMATURE GRANULYOCYTES 0.3 % (0.0-1.1); ABSOLUTE IMMATURE GRANULOCYTES 0.02 10^3/uL (0.00-0.10); ADD DIFF? NO; ADD MORPH? NO; ADD SCAN? NO; ATYPICAL LYMPHOCYTE FLAG 10 (0-99); FRAGMENT RBC FLAG 0 (0-99); HEMATOCRIT 22.2 % (40.0-51.0); HEMOGLOBIN 7.3 g/dL (13.7-17.5); LEFT SHIFT FLG 0 (0-99); LIPEMIA HEMOLYSIS FLAG 80 (0-99); MEAN CELL HEMOGLOBIN 29.9 pg (27.9-34.1); MEAN CELL HEMOGLOBIN CONCENTR. 32.9 g/dL (32.4-36.7); MEAN PLATELET VOLUME 9.5 fL (8.7-11.7); PLATELET CLUMPS FLAG 0 (0-99); PLATELET COUNT 249 10^3/uL (150-400); RED BLOOD CELL COUNT 2.44 10^6/uL (4.40-6.38); RED CELL DISTRIBUTION WIDTH 14.1 % (11.5-15.2)
[2017-04-26] MEDS ORDERED: IPRATROPIUM/ALBUTEROL 3 ML DEYVIAL IH ONE (10:53)
[2017-04-26 10:58] LABS: INR 1.21 (0.83-1.16); PROTIME(PATIENT) 15.3 SEC (12.0-15.0)
[2017-04-26 10:59] LABS: APTT 34.3 SEC (23.0-38.0)
[2017-04-26 11:13] LABS: ANION GAP 13 mEq/L (8-16); BILIRUBIN,TOTAL 0.9 mg/dL (0.1-1.4); CARBON DIOXIDE 35 mEq/l (22-31); CHLORIDE 93 mEq/L (97-110); CREATININE 5.4 mg/dL (0.7-1.3); GLOMERULAR FILTRATION RATE 13; GLUCOSE 108 mg/dL (70-100); POTASSIUM 3.9 mEq/L (3.5-5.2); SODIUM 141 mEq/L (134-144)
[2017-04-26 13:06] LABS: MAGNESIUM 1.9 mg/dL (1.6-2.3)
[2017-04-26] MEDS ORDERED: ACETAMINOPHEN 325 MG TAB PO PRN (13:52)
[2017-04-26] MEDS ORDERED: ONDANSETRON DISINTEGRATING 4 MG TAB PO PRN (13:52)
[2017-04-26] MEDS ORDERED: ONDANSETRON 4 MG/2 ML VIAL IVP PRN (13:52)
[2017-04-26] MEDS ORDERED: OXYCODONE/APAP 5/325 TAB PO PRN (13:54)
[2017-04-26] MEDS ORDERED: guaiFENesin/CODEINE PHOS 10 ML UDCUP PO PRN (14:01)
[2017-04-26 14:05] LABS: COLOR PALE YELLOW; LEUKOCYTE ESTERASE,URINE NEGATIVE (NEGATIVE); NITRITE,URINE NEGATIVE (NEGATIVE)
[2017-04-26 14:23] LABS: MUCUS TRACE /lpf (NONE-1+)
--- NOTE | 2017-04-26 14:29 | GHP ---
[f rep st] HISTORY AND PHYSICAL DATE OF ADMISSION: 04/26/2017 CHIEF COMPLAINT: Shortness of breath, cough. HISTORY OF PRESENT ILLNESS: A 26-year-old male with a history of solitary kidney with subsequent failure on HD, who presents with shortness of breath and cough. Symptoms started 3 days ago with a productive cough of green sputum. States the shortness of breath is worse at night when he is lying down. He has not been able to sleep for the last couple nights. Denies fevers, chills, or sweats. No nausea, vomiting, diarrhea. Has had a headache. No myalgias. Lives with his mother. She has not been ill. He underwent dialysis today without issue at [facility]. REVIEW OF SYSTEMS: I completed a 10-point review of systems, negative, except as noted in HPI. PAST MEDICAL HISTORY: Solitary kidney with subsequent failure. Started HD 4 years ago (Saturday, Saturday, Saturday), anemia of chronic disease. PAST SURGICAL HISTORY: 1. Fistula. 2. Cholecystectomy. FAMILY HISTORY: Mother and father with hypertension. ALLERGIES: No known drug allergies. SOCIAL HISTORY: Smokes a half pack a day. Marijuana every other day. Lives with his mother. Is not working. No alcohol. No other illicits. HOME MEDICATIONS: 1. Percocet. 2. Propranolol. PHYSICAL EXAMINATION: VITAL SIGNS: Temperature 37.2, blood pressure 177/107, heart rate 116, 84% on room air, 96% on 2 L. GENERAL: Well appearing, no acute distress. HEENT: PERRLA. Mildly dry mucous membranes. CV: Tachycardic , but regular. LUNGS: Diffuse rhonchi and expiratory wheezing, with decreased air movement throughout. ABDOMEN: Soft, nontender, nondistended. Positive bowel sounds. : No [place]. MUSCULOSKELETAL: 5/5 upper and lower extremity strength. Fistula with good thrill. NEURO: 2-12 intact. PSYCH: Alert and oriented x3, very pleasant. LABS: WBC 7, hemoglobin 7.3, hematocrit 22, platelets 249, which is near his baseline. Sodium 141, potassium 3.9, chloride 93, carbon dioxide 35, creatinine 5.9, glucose 108, calcium 106. BNP 76,000. Chest x-ray is personally reviewed by me. Some interstitial edema pattern. This is improved since x-ray on 04/24. Respiratory PCR positive for rhinovirus/enterovirus. ASSESSMENT/PLAN: 1. Acute hypoxemic respiratory failure: due to rhinovirus/enterovirus respiratory infection. He is not overloaded on exam. X-ray is improved from prior. Will treat supportively with cough suppressants. Poor air movement on exam, so will treat with DuoNeb. Monitor on pulse ox overnight. 2. End-stage renal disease: Saturday, Saturday, Saturday, got dialysis today. 3. Accelerated hypertension: Due to end-stage renal disease. Again, not volume overloaded. Will provide p.r.n. hydralazine if needed. 4. Anemia of chronic disease. H and H are stable at 7 and 23, which is his baseline. We will repeat in the morning and type and screen. 5. Diet: Renal. 6. DVT prophylaxis: Low risk, ambulatory. DISPOSITION: Placed in observation admission given acute hypoxemia, warranting oxygen and DuoNeb. /[id number]/MODL MTDD
[2017-04-26 15:28] LABS: HEMATOCRIT 23.8 % (40.0-51.0); HEMOGLOBIN 7.6 g/dL (13.7-17.5); MEAN CELL HEMOGLOBIN 29.8 pg (27.9-34.1); MEAN CELL HEMOGLOBIN CONCENTR. 31.9 g/dL (32.4-36.7); MEAN CELL VOLUME 93.3 fL (81.5-99.8); RED BLOOD CELL COUNT 2.55 10^6/uL (4.40-6.38); RED CELL DISTRIBUTION WIDTH 14.2 % (11.5-15.2)
[2017-04-26] MEDS ORDERED: hydrALAZINE 10 MG TAB PO PRN (16:02)
[2017-04-26] MEDS: IPRATROPIUM/ALBUTEROL 3 ML DEYVIAL IH SCH ×2 (16:32→23:04)
--- NOTE | 2017-04-26 20:06 | GCON ---
[f rep st] CONSULTATION NEPHROLOGY CONSULTATION DATE OF CONSULTATION: 04/26/2017 REASON FOR CONSULTATION: End-stage renal disease, hypoxemia. 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 History was obtained from the patient as well as f rom the medical staff. At present, the patient seems to be a reasonable historian. The patient was born with 1 kidney, and was advised early on that his solitary kidney functioning at only 40%. Thus, it was expected at some point, he would develop end-stage renal disease. He did jamin w up in [place] and ultimately went on dialysis approximately 4 years ago. Several months ago, the patient did go through a divorce, and moved to [place] to be near his mother. He is presently residing with her. Since that time, he has been dialyzing at the [facility] it on a Saturday, Saturday, Saturday schedule. I did call and review his care with the nurses there. T he patient does have significant residual renal function, and does not come in with significant fluid gains. He does consistently shorten his time to 3 hours, which is below his prescribed time. He fr equently gets interdialytic headaches, that are quite severe for him. He also tends to get interdial ytic hypertension. The patient states he has significant cramping with any volume removal. Recently , his truck leasing manager, Dr. Clark Rawls, started him on minoxidil 5 mg b.i.d. I am not sure if the uday ent has been taking his medication. The patient's current issues began approximately 4 days ago. At that time, he developed symptoms of a viral illness including a sore throat and a cough. He also had some chills. His cough was product quincy at times. Last evening, he became more short of breath, and also had palpitations. He presented to the emergency room where pulse oximetry demonstrated saturations of 76% on room air. This improv ed to 96% on 2 L of oxygen. The patient was offered ultrafiltration this evening, but refused. As r elated to the above issues, we are asked by Dr. Leblanc to assist the patient's renal diagnosis and lexis dasilva. PAST MEDICAL HISTORY: 1. End-stage renal disease secondary to congenital causes. The patient dialyzes on a Saturday, , Saturday schedule. 2. Severe hypertension. 3. Migraine headaches. 4. Severe anemia. SURGICAL HISTORY: Includes: 1. Fistula placement. 2. Cholecystectomy. HOME MEDICATIONS: Percocet, propranolol and minoxidil. I am not clear if he actually has started hi s minoxidil at home. ALLERGIES: No known allergies. FAMILY HISTORY: Positive for hypertension. SOCIAL HISTORY: As noted above, the patient has gone through a divorce. He has 3 children in [place] . He does smoke a half pack of cigarettes per day. He uses some marijuana. He is disabled at [facility]. He does not drink alcohol. REVIEW OF SYSTEMS: GENERAL: The patient did have some chills. He has frequent headaches. Denies v isual disturbances. He denies rhinitis. He does have a sore throat. He has a productive cough. He is not dyspneic on his oxygen. He is not having left-sided chest pain. He is having some bilateral pleuritic chest pain that he associates with the coughing. He denies abdominal pain, constipation, or diarrhea. He does have significant ongoing urine output. He does not have lower extremity edema. He denies symptoms of numbness in his fingers or toes. He does not have skin rashes. There is no history of thyroid disease or diabetes. PHYSICAL EXAM: GENERAL: At time of exam, the patient is appropriate, alert. VITAL SIGNS: Temperatur e afebrile, pulse 82, blood pressure 167/110. Eyes: Sclerae are clear. Oropharynx: Clear. NECK: N o lymphadenopathy or thyromegaly. LUNGS: Coarse breath sounds bilaterally but no rales or rhonchi. CARDIOVASCULAR: Tachycardic with a summation gallop. ABDOMEN: Nontender, no organomegaly. and rectal: Deferred. EXTREMITIES: No lower extremity edema. Integument. The patient is darkly pigmen galina. He does have tattoos. I do not see rashes. NEURO: No focal findings. LABORATORY STUDIES: Sodium 141, potassium 3.9, bicarb 35, BUN 22, creatinine 5.4. White count 6.4, hematocrit 23.8, platelets 225. Venous lactate 1.0. IMPRESSION AND PLAN: 1. Hypoxemia. The patient does have significant hypoxemia, but currently is saturating normally and is not dyspneic on 2 L. The initial question is whether this is a viral pneumonia or if the patient has additional contributing volume disturbance. Favoring volume disturbance, he certainly has a mar kedly elevated blood pressure, and he does have an S3 on his exam. However, the patient states he hayes s cramping with any significant volume removal. He is quite hypertensive. His chest x-ray shows tavon e increased interstitial markings, but is not that impressive for volume overload. For now, we will continue to follow the patient, and monitor him overnight. 2. Cardiovascular. The patient is quite hypertensive. I will start him on low-dose minoxidil as pr escribed by his outpatient doctor. He is on a beta-jhon. Given his gallop, we will perform an ec hocardiogram tomorrow. 3. Anemia. The patient does have profound anemia. Apparently this is close to his baseline. This is likely related to under dialysis. He does receive Epogen at the Dialysis Unit. 4. Viral pneumonia. The patient did test positive for rhino virus, which is consistent with his pre sentation. He will receive supportive care. 5. End-stage renal disease. The patient did receive his full dialysis earlier today. His next rout ine dialysis would be on Saturday. Thank you for allowing us to participate in this gentleman's care. We will continue following him cl osely with you. /[id number]/MODL
[2017-04-26] MEDS: PROPRANOLOL HCL 40 MG TAB PO SCH (20:33)
[2017-04-26] MEDS: MINOXIDIL 2.5 MG TAB PO SCH (20:33)
[2017-04-26] MEDS: OXYCODONE/APAP 5/325 TAB PO PRN (23:01)
[2017-04-26] MEDS: BENZONATATE 100 MG CAP PO PRN (23:02)
[2017-04-27 05:37] LABS: ANION GAP 15 mEq/L (8-16); CALCIUM 8.4 mg/dL (8.5-10.4); CARBON DIOXIDE 30 mEq/l (22-31); CHLORIDE 95 mEq/L (97-110); GLOMERULAR FILTRATION RATE 9; GLUCOSE 84 mg/dL (70-100); POTASSIUM 5.1 mEq/L (3.5-5.2); SODIUM 140 mEq/L (134-144)
[2017-04-27 05:49] LABS: CREATININE 7.7 mg/dL (0.7-1.3)
[2017-04-27] MEDS: IPRATROPIUM/ALBUTEROL 3 ML DEYVIAL IH SCH ×2 (06:00→11:16)
[2017-04-27] MEDS: OXYCODONE/APAP 5/325 TAB PO PRN (06:12)
[2017-04-27] MEDS: BENZONATATE 100 MG CAP PO PRN (06:13)
[2017-04-27] MEDS: MINOXIDIL 2.5 MG TAB PO SCH (08:09)
[2017-04-27] MEDS: PROPRANOLOL HCL 40 MG TAB PO SCH (08:09)
[2017-04-27 08:10] VITALS: BP 169/116; PULSE 103; RESP 18; TEMP 98
--- NOTE | 2017-04-27 09:05 | PDHOMEO2F ---
Home Oxygen Face to Face Home Orders: I certify that a physician or a nurse practitioner or physician's child center assistant has had a ltay-ks-sarg encounter with this patient on the date of this order due to the diagnosis listed, which relates to the primary reason the patient requires home oxygen. Alternative treatments have been tried, or considered, and deemed ineffective. It is anticipated that supplemental oxygen will result in improvement with treatment. Home oxygen qualifying diagnosis: reactive airways disease; volume overload SpO2 on room air (%): 82 Frequency of home oxygen needed: continuous Home oxygen liters per minute: 1 Home oxygen delivery device: nasal cannula Concentrator: No E-tanks for mobility and back up: No I certify that, based on these findings, the home oxygen is medically necessary for this patient for the following length of time. Length of time home oxygen needed: 1 month
[2017-04-27 09:09] VITALS: O2SAT 83
[2017-04-27 09:17] LABS: HEMATOCRIT 24.4 % (40.0-51.0); HEMOGLOBIN 7.6 g/dL (13.7-17.5); MEAN CELL HEMOGLOBIN 29.8 pg (27.9-34.1); MEAN CELL HEMOGLOBIN CONCENTR. 31.1 g/dL (32.4-36.7); MEAN CELL VOLUME 95.7 fL (81.5-99.8); RED BLOOD CELL COUNT 2.55 10^6/uL (4.40-6.38); RED CELL DISTRIBUTION WIDTH 14.4 % (11.5-15.2)
--- NOTE | 2017-04-27 09:41 | PDHOMEO2F ---
Home Oxygen Face to Face Home Orders: I certify that a physician or a nurse practitioner or physician's fws faculty assistant has had a ffcj-aa-mnex encounter with this patient on the date of this order due to the diagnosis listed, which relates to the primary reason the patient requires home oxygen. Alternative treatments have been tried, or considered, and deemed ineffective. It is anticipated that supplemental oxygen will result in improvement with treatment. Home oxygen qualifying diagnosis: RAD/volume overload SpO2 on room air (%): 82 Frequency of home oxygen needed: continuous Home oxygen liters per minute: 1 Home oxygen delivery device: nasal cannula Concentrator: Yes E-tanks for mobility and back up: Yes If ordering portable O2, is the patient mobile in the home?: Yes I certify that, based on these findings, the home oxygen is medically necessary for this patient for the following length of time. Length of time home oxygen needed: 1 month
--- NOTE | 2017-04-27 09:47 | GDS ---
[f rep st] DISCHARGE SUMMARY ALL DIAGNOSES: 1. Acute hypoxic respiratory failure. 2. Acute rhinovirus/enterovirus bronchitis. 3. End-stage renal disease, on dialysis. 4. Mild volume overload. 5. Anemia of chronic kidney disease. 6. Uncontrolled hypertension. HOSPITAL COURSE: A 26-year-old man admitted with shortness of breath. He was found to be hypoxic at 84% on room air. Respiratory panel PCR revealed rhinovirus/enterovirus. Treated with supportive me asures, including inhalers and supplemental oxygen. Chest x-ray shows interstitial infiltrate consis tent with both potentially viral infection, as well as mild volume overload. He was offered volume r emoval by Renal; however, he refused. His potassium is 5.1, recommend that he maintain a low-potassi um diet. He is anxious to be discharged. He has ongoing hypoxia the morning after discharge. I offered to ke ep him another day in the hospital or discharge him with oxygen. He prefers to be discharged with ox ygen. I have ordered all this, including oxygen, albuterol inhaler, codeine cough syrup for 10 days. He should follow up with his decorative greens cutter to decide when he is safe to discontinue oxygen. I recomme nded that he do nothing strenuous for the next few days until he is feeling less short of breath. /[id number]/MODL
--- NOTE | 2017-04-27 10:01 | ASMTCMCOM ---
CM Note CM Note Notes: Spoke w/ bedside RN. Pt. going home independently today to family w/ new O2. Date Signed: 04/27/2017 10:00 AM Electronically Signed By:Sharon Hemphill LCSW
--- NOTE | 2017-04-27 11:15 | SOAPPROG ---
SOAP Progress Note Assessment/Plan: Assessment: 1. Hypoxemia Improving. DC with oxygen. Appears likely to be viral. 2. ESRD Next HD Saturday. Pt advised to follow strict K restriction. 3. Anemia Stable. 4. HTN Counseled patient about importance of improving control. Plan: 04/27/17 11:12 Subjective: Feels better Objective: Vital Signs Temp Pulse Resp BP Pulse Ox 36.7 C 103 H 18 169/116 H 83 L 04/27/17 08:00 04/27/17 08:00 04/27/17 08:00 04/27/17 08:00 04/27/17 09:09 Laboratory Results 04/27/17 04:08 04/27/17 04:08 04/26/17 04/27/17 04/28/17 05:59 05:59 05:59 Intake Total 1300 Output Total 400 Balance 900 PT 15.3 SEC (12.0-15.0) H 04/26/17 10:38 INR 1.21 (0.83-1.16) H 04/26/17 10:38 Physical Exam - Physical Exam General Appearance: no apparent distress Respiratory: lungs clear Cardiac/Chest: regular rate, rhythm Extremities: normal inspection Neuro/Psych: oriented x 3 ICD10 Worksheet Patient Problems: Problems Problem Status Onset CKD (chronic kidney disease) stage V requiring chronic dialysis Acute Hypoxemia Acute Shortness of breath Acute Admission for dialysis Acute ESRD (end stage renal disease) Acute Hyperkalemia Acute Left ankle sprain Acute
--- NOTE | 2017-04-27 12:25 | ECHO ---
[id number] + + [address] : : [place] [address] : : [phone] + + Adult Echocardiographic Report + --------+ :Name: CONRADO ESPINOSA MStudy Date: 04/27/2017 09:38 AM : : Hospital Admission Number: [id number] Location: bedside: :: 1990 Gender: Male Height: 69 in : :Age: 26 yrs Race: WH Weight: 167 lb : :Reason For Study: murmur : : BSA: 1.9 meters2 : :History: S3 Gallop, uncontrolled HTN, ESRD : + --------+ MMode/2D Measurements & Calculations IVSd: 1.0 cm RVDd: 3.5 cm FS: 25.0 % MV Diam: 3.0 cm LVPWd: 1.3 cm LVIDd: 5.7 cm EDV(Teich): 160.1 ml LVIDs: 4.3 cm ESV(Teich): 81.9 ml EF(Teich): 48.9 % Ao root diam: LVOT diam: 2.0 cmLVLd ap4: 10.0 cm SV(MOD-sp4): 2.9 cm LVOT area: EDV(MOD-sp4): 81.0 ml 3.1 cm2 205.0 ml LVLs ap4: 9.3 cm ESV(MOD-sp4): 124.0 ml EF(MOD-sp4): 39.5 % Normal Measurement Values: + + :LVIDd (3.5-5.7cm) IVSd (0.6-1.1cm) LVPWd (0.6-1.1cm) Aortic Root (2.0-3.7cm)Left Atrium (1.5-4.0cm): :LV Vol(d) (76-115ml) LV Vol(s) (29-48ml) Ejec Fraction (50-65%)PV Shon (0.6- 1.2m/s) TV Shon (0.4-1.0m/s) : :MV E Shon (0.8-1.0m/s)MV A Shon (0.3-1.0m/s)LVOT Shon (0.7-1.2m/s) Asc Ao Shon ( 0.9-1.8m/s) : + + Doppler Measurements & Calculations MV E max shon: MV V2 max: Ao V2 max: LV V1 mean P.8 cm/sec 108.6 cm/sec 134.2 cm/sec 2.3 mmHg MV A max shon: MV max P.7 mmHg Ao max PG: LV V1 mean: 73.4 cm/sec MV V2 mean: 7.2 mmHg 73.1 cm/sec MV E/A: 2.0 57.8 cm/sec LV V1 VTI: MV dec time: MV mean P.7 mmHg 17.6 cm 0.17 sec MV V2 VTI: 14.5 cm MV area (1 diam): 6.9 cm2 MVA(VTI): 3.7 cm2 MV Flow area(1diam): 6.9 cm2 MR max shon: MR(RF 1 diam): SV(MV 1 diam): PA V2 max: 534.3 cm/sec 48.3 % 100.7 ml 113.1 cm/sec MR max PG: SI(MV 1 diam): PA max P.2 mmHg 52.6 ml/m2 5.1 mmHg SV(LVOT): 53.7 ml TR max shon: RF(MV,LVOT)(1diam): 331.8 cm/sec 0.47 TR max P.0 mmHg RAP systole: 10.0 mmHg RVSP(TR): 54.0 mmHg Left Ventricle The left ventricle is borderline dilated. There is mild concentric left ventricular hypertrophy. Left ventricular systolic function is mildly reduced. Ejection Fraction = 45%. There is mild global hypokinesis of the left ventricle. Right Ventricle The right ventricle is normal in size and function. Atria The left atrium is mild to moderately dilated. The Left Atrial Volume is 41 ml/m2. Right atrial size is normal. A dilated inferior vena cava suggests increased right atrial pressure. Mitral Valve Abnormal posterior leaflet; possible papillary muscle dysfunction. There is no mitral valve stenosis. There is severe mitral regurgitation. The mitral regurgitant jet is anteriorly directed, which is consistent with posterior leaflet pathology. Pulmonary vein reversal noted. Tricuspid Valve The tricuspid valve is normal in structure and function. There is no tricuspid stenosis. There is mild to moderate tricuspid regurgitation. Right ventricular systolic pressure is 54mmHg. There is Doppler evidence for moderate pulmonary hypertension. Aortic Valve The aortic valve is trileaflet. There is no aortic stenosis. There is no aortic insufficiency. Pulmonic Valve The pulmonic valve is normal in structure and function. Trace pulmonic valvular regurgitation. Great Vessels The aortic root is normal size. Pericardium/Pleural trivial pericardial effusion. There is a moderate pleural effusion. Conclusion A two-dimensional transthoracic echocardiogram with M-mode and Doppler was performed. The left ventricle is borderline dilated. There is mild concentric left ventricular hypertrophy. Left ventricular systolic function is mildly reduced. Ejection Fraction = 45%. There is mild global hypokinesis of the left ventricle. The left atrium is mild to moderately dilated. The Left Atrial Volume is 41 ml/m2. A dilated inferior vena cava suggests increased right atrial pressure. Abnormal posterior leaflet; possible papillary muscle dysfunction. There is severe mitral regurgitation. The mitral regurgitant jet is anteriorly directed, which is consistent with posterior leaflet pathology. Pulmonary vein reversal noted. There is mild to moderate tricuspid regurgitation. Right ventricular systolic pressure is 54mmHg. There is Doppler evidence for moderate pulmonary hypertension. Trace pulmonic valvular regurgitation. trivial pericardial effusion. There is a moderate pleural effusion. Final Reading Physician: Amauri Castro signed on 04/27/2017 12:23 PM Ordering Physician: SARAH TANNER Performed By: Anne Valadez
--- NOTE | 2017-04-27 17:03 | ASDISCHSUM ---
Discharge Information Plan Status:Home with DME or Oxygen Medically Cleared to Leave: Discharge Date:04/27/2017 11:19 AM CM D/C Disposition:Home, Routine, Self-Care ADT D/C Disposition:Home, Routine, Self-Care Projected Discharge Date:04/27/2017 11:19 AM Transportation at D/C:Family Discharge Delay Reason: Follow-Up Date:04/27/2017 11:19 AM Discharge Slot: Final Diagnosis: Placement Information Patient Contact Information Contact Name:JEFFERY Relationship:Mother Address:[address] Work Phone: City:[place] Alternate Phone: State/Zip Code:[place] [address] Email: Financial Information Financial Class: Primary Plan Desc:MEDICARE INPATIENT Primary Plan Number:[id number] Secondary Plan Desc:MEDICAID [place] Secondary Plan Number:[id number] Assessment Information [facility] CM Progress Note CM Note CM Note Notes: Spoke w/ bedside RN. Pt. going home independently today to family w/ new O2. Date Signed: 04/27/2017 10:00 AM Electronically Signed By:Sharon Hemphill LCSW Intervention Information Intervention Type:*Incorrect Registration Date of Service:04/26/2017 04:14 PM Patient Type:Inpatient Staff Member:SHAVON Hansen Susan Hours: Discipline: Severity: Comment:
--- NOTE | 2017-04-28 11:49 | HOSPPROG ---
Hospitalist Progress Note Assessment/Plan: echo reviewed - severe MR and EF 45%; this was not available when patient was discharged. patient contacted by RN - he feels about the same as yesterday. he was given strict instructions to [facility] tomorrow and make an appointment lorri. Objective: Vital Signs Temp Pulse Resp BP Pulse Ox 36.7 C 103 H 18 169/116 H 83 L 04/27/17 08:00 04/27/17 08:00 04/27/17 08:00 04/27/17 08:00 04/27/17 09:09 Laboratory Results 04/27/17 04:08 04/27/17 04:08 04/27/17 04/28/17 04/29/17 05:59 05:59 05:59 Intake Total 1300 Output Total 400 Balance 900 PT 15.3 SEC (12.0-15.0) H 04/26/17 10:38 INR 1.21 (0.83-1.16) H 04/26/17 10:38 ICD10 Worksheet Patient Problems: Problems Problem Status Onset Admission for dialysis Acute CKD (chronic kidney disease) stage V requiring chronic dialysis Acute ESRD (end stage renal disease) Acute Hyperkalemia Acute Hypoxemia Acute Left ankle sprain Acute Shortness of breath Acute
--- NOTE | 2017-05-01 21:16 | GCON ---
[f rep st] CONSULTATION OFFICE CONSULTATION DATE OF CONSULTATION: 05/01/2017 REFERRING PHYSICIAN: Shant Low MD DIAGNOSIS: Mitral insufficiency. HISTORY OF PRESENT ILLNESS: This is a 26-year-old male who is on chronic dialysis because of congeni beronica kidney issues. He is dialyzed Saturday, Saturday and Saturday. He does make a fair amount of urine . A few weeks ago, he was admitted with shortness of breath and cough, and he was told he had a mercedes l illness. Since then, he has remained on supplemental oxygen and has a persistent cough, especially when he lies down, and he is having to sleep in a chair. He had an echocardiogram that shows signif icant left ventricular hypertrophy. It shows an ejection fraction of about 40% to 45%. It is a dila galina ventricle, and he has severe mitral insufficiency. It is a somewhat central jet on most views, a nd the pathology is not entirely clear as to why he has such a significant mitral insufficiency. The re is also mild tricuspid insufficiency present. The patient has chronic hypertension that was not w ell treated. He was only on 25 mg of Lopressor a day; this was increased to [address] Marissa chapin yesterday. His blood pressure today is 170/100. The patient has no known allergies and no other significant medical problems. PHYSICAL EXAMINATION: VITAL SIGNS: His blood pressure is 170/100, pulse is about 100 and regular. He is on 1.5 L of oxygen. LUNGS: Scattered expiratory wheezes. He is somewhat tight sounding. His heart has an increased rate with a 1-2 over 6 systolic murmur of mitral insufficiency. ABDOMEN: The re are some scars from peritoneal dialysis catheter. EXTREMITIES: He does have 1+ edema in the righ t leg. He has a working fistula in the left forearm. ASSESSMENT: A 26-year-old without severe mitral insufficiency. What is not clear is whether this is secondary to a cardiomyopathy from chronic hypertension or whether this was from a viral illness zulema t he had a couple of weeks ago. His blood pressure is very poorly controlled. RECOMMENDATIONS: We try to control his blood pressure better. With that, then repeat another echoca rdiogram in a month or so and we can then get a better idea whether he truly needs to have mitral sherman ve surgery or not. He and his parents know that when we start the Norvasc 10 mg a day, if his blood pressure does not come down, then he is to let someone in the cardiology office know so that they can do more adjustments on his blood pressure medicines, and they will setup another echo in about we. /[id number]/MODL
== END 2017-04-27 11:19 | disposition home or self-care (01) ==
LOC: INTOOBSV 11:16 → F2W 13:28
PROVIDERS: ADMIT Family Medicine; ATTEND Student in an Organized Health Care Education/Training Program
DX: J96.01 Acute respiratory failure with hypoxia (principal); J20.6 Acute bronchitis due to rhinovirus; B34.1 Enterovirus infection, unspecified; N18.6 End stage renal disease; E87.70 Fluid overload, unspecified; I12.0 Hypertensive chronic kidney disease with stage 5 chronic kidney disease or end stage renal disease; D63.1 Anemia in chronic kidney disease; I34.0 Nonrheumatic mitral (valve) insufficiency; Q60.0 Renal agenesis, unilateral; J84.9 Interstitial pulmonary disease, unspecified; F17.210 Nicotine dependence, cigarettes, uncomplicated; Z95.828 Presence of other vascular implants and grafts; Z99.2 Dependence on renal dialysis; Z99.81 Dependence on supplemental oxygen
CPT/HCPCS: 71020; 93306; 96374; 99285; G0378

== ENCOUNTER 2017-05-02 11:24 | Inpatient (IN) | payer OTHER, MEDICAID ==
--- NOTE | 2017-05-02 13:08 | EDPHY ---
H & P Stated Complaint: "I can't breathe and my heart is racing";dialysis yesterday Time Seen by Provider: 05/02/17 12:41 HPI/ROS: CHIEF COMPLAINT: Shortness of breath palpitations HISTORY OF PRESENT ILLNESS: Patient is a 26-year-old man with a history of renal disease on dialysis. He had dialysis yesterday. He is hospitalized here 1 week ago for respiratory distress and diagnosed with rhino virus. He was sent home on 1 L of nasal cannula oxygen. He had an echocardiogram that revealed severe mitral valve regurgitation an ejection fraction of 45%. He had a BNP of 26,000. He has follow-up with [facility] scheduled in a week. Also he was anemic with hematocrit of 24 which is close to his baseline. He denies any bleeding. He does complain of some swelling to his right leg. No pain. He is mild chest heaviness. No fevers. He also reports a history of asthma. He has not required albuterol today. REVIEW OF SYSTEMS: Constitutional: denies: chills, fever, recent illness, recent injury EENTM: denies: blurred vision, double vision, nose congestion Respiratory: See HPI Cardiac: See HPI Gastrointestinal/Abdominal: denies: abdominal pain, diarrhea, nausea, vomiting, blood streaked stools Genitourinary: denies: dysuria, frequency, hematuria, pain Musculoskeletal: denies: joint pain, muscle pain Skin: denies: lesions, rash, jaundice, bruising Neurological: denies: headache, numbness, paresthesia, tingling, dizziness, weakness Hematologic/Lymphatic: denies: blood clots, easy bleeding, easy bruising Immunologic/allergic: denies: HIV/AIDS, transplant EXAM: GENERAL: Well-appearing, well-nourished and in no acute distress. HEAD: Atraumatic, normocephalic. EYES: Pupils equal round and reactive to light, extraocular movements intact, sclera anicteric, conjunctiva are normal. ENT: TMs normal, nares patent, oropharynx clear without exudates. Moist mucous membranes. NECK: Normal range of motion, supple without lymphadenopathy or JVD. LUNGS: Breath sounds clear to auscultation bilaterally and equal. No wheezes rales or rhonchi. HEART: Regular rate and rhythm without murmurs, rubs or gallops. ABDOMEN: Soft, nontender, normoactive bowel sounds. No guarding, no rebound. No masses appreciated. BACK: No CVA tenderness, no spinal tenderness, step-offs or deformities EXTREMITIES: Normal range of motion, slight edema right lower leg . No clubbing or cyanosis. NEUROLOGICAL: Cranial nerves II through XII grossly intact. Normal speech, normal gait. 5/5 strength, normal movement in all extremities, normal sensation PSYCH: Normal mood, normal affect. SKIN: Warm, dry, normal turgor, no visible rashes or lesions. Source: Patient Exam Limitations: No limitations - Personal History Current Tetanus Diphtheria and Acellular Pertussis (TDAP): Yes - Medical/Surgical History Hx Asthma: No Hx Chronic Respiratory Disease: No Hx Diabetes: No Hx Cardiac Disease: No Hx Renal Disease: Yes Hx Cirrhosis: No Hx Alcoholism: No Hx HIV/AIDS: No Hx Splenectomy or Spleen Trauma: No Other PMH: PMHx: dialysis for renal dysfunction, HTN (untreated). PSHx: gallbladder, fistula, other dialysis surgery - Family History Significant Family History: No pertinent family hx - Social History Smoking Status: Current every day smoker Alcohol Use: Sober Drug Use: None Constitutional: Initial Vital Signs Temperature (C) 36.9 C 05/02/17 11:25 Heart Rate 90 05/02/17 11:25 Respiratory Rate 18 05/02/17 11:25 Blood Pressure 162/122 H 05/02/17 11:25 O2 Sat (%) 100 05/02/17 11:25 O2 Delivery Mode Nasal Cannula O2 (L/minute) 1 Allergies/Adverse Reactions: No Known Allergies Allergy (Verified 05/02/17 11:28) Home Medications: Medication Instructions Recorded oxyCODONE/APAP 5/325 [Percocet 1 tab PO MWF PRN 04/26/17 5/325 (*)] Minoxidil [Minoxidil 2.5 mg (*)] 2.5 mg PO BID tab 04/27/17 Albuterol [Ventolin Hfa Inhaler] 2 puffs IH Q4 PRN 05/02/17 Metoprolol Tartrate [Lopressor 50 50 mg PO BID 05/02/17 mg (*)] Medical Decision Making - Diagnostics Imaging: Discussed imaging studies w/ scallop binder Radiologist ED Course/Re-evaluation: 2:14 p.m. I discussed the case with Dr. Timi Sherman. He agrees to admission and asked that I consult Renal. We agreed to start the patient on Lasix. He does still make urine. He will be dialyzed again tomorrow. The patient was up in the hallway asking to leave because he felt uncomfortable. He agreed to stay and I offered him some Ativan. With Dr. Sherman I agreed not to proceed with CT angio. 2:35 p.m. I spoke with Nephrology will put him on list for dialysis tomorrow. Differential Diagnosis: Partial list of the Differential diagnosis considered include but were not limited to; pulmonary edema, PE, anxiety and although unlikely based on the history and physical exam, I also considered infection, pneumothorax. - Data Points Laboratory Results: Laboratory Results 05/02/17 13:10 05/02/17 13:10 Medications Given: Furosemide (Lasix Injection) 80 mg IVP Q8H BRANDY Stop: 10/29/17 20:44 Last Admin: 05/03/17 15:52 Dose: 80 mg Heparin Sodium (Porcine) (Heparin Sc Injection) 5,000 unit SC Q8 BRANDY Stop: 10/29/17 21:59 Last Admin: 05/03/17 14:18 Dose: Not Given Hydralazine HCl (Apresoline) 25 mg PO QID BRANDY Stop: 10/30/17 10:14 Last Admin: 05/03/17 15:51 Dose: 25 mg Hydromorphone HCl (Dilaudid) 0.5 mg IVP Q4HRS PRN PRN Reason: Pain, Severe Unable to Take PO Stop: 05/12/17 22:45 Last Admin: 05/03/17 17:59 Dose: 0.5 mg Metoprolol Tartrate (Lopressor) 50 mg PO BID BRANDY Stop: 10/29/17 20:59 Last Admin: 05/03/17 09:21 Dose: 50 mg Minoxidil (Minoxidil) 2.5 mg PO BID BRANDY Stop: 10/29/17 20:59 Last Admin: 05/03/17 09:21 Dose: 2.5 mg Oxycodone HCl (Oxycodone Ir) 5 mg PO Q4 PRN PRN Reason: Pain, Severe Able to Take PO Stop: 05/12/17 21:04 Last Admin: 05/02/17 21:14 Dose: 5 mg Oxycodone/Acetaminophen (Percocet 5/325) 1 tab PO MWF PRN PRN Reason: days of dialysis Stop: 05/12/17 14:45 Last Admin: 05/02/17 15:10 Dose: 1 tab Discontinued Medications Furosemide (Lasix Injection) 80 mg IVP EDNOW ONE Stop: 05/02/17 14:15 Last Admin: 05/02/17 14:26 Dose: 80 mg Lorazepam (Ativan Injection) 1 mg IVP EDNOW ONE Stop: 05/02/17 14:29 Last Admin: 05/02/17 14:32 Dose: 1 mg Metoclopramide HCl (Reglan Injection) 10 mg IVP EDNOW ONE Stop: 05/02/17 13:26 Last Admin: 05/02/17 13:56 Dose: 10 mg Departure - Departure Disposition: [facility] Acute Clinical Impression: Shortness of breath Pulmonary edema Qualifiers: Chronicity: acute Qualified Code(s): J81.0 - Acute pulmonary edema Condition: Fair
[2017-05-02 13:19] LABS: % IMMATURE GRANULYOCYTES 0.6 % (0.0-1.1); ABSOLUTE IMMATURE GRANULOCYTES 0.04 10^3/uL (0.00-0.10); ADD DIFF? NO; ADD MORPH? NO; ADD SCAN? NO; ATYPICAL LYMPHOCYTE FLAG 10 (0-99); FRAGMENT RBC FLAG 0 (0-99); HEMATOCRIT 28.1 % (40.0-51.0); HEMOGLOBIN 8.6 g/dL (13.7-17.5); LEFT SHIFT FLG 0 (0-99); LIPEMIA HEMOLYSIS FLAG 80 (0-99); MEAN CELL HEMOGLOBIN 29.5 pg (27.9-34.1); MEAN CELL HEMOGLOBIN CONCENTR. 30.6 g/dL (32.4-36.7); MEAN CELL VOLUME 96.2 fL (81.5-99.8); MEAN PLATELET VOLUME 9.1 fL (8.7-11.7); PLATELET CLUMPS FLAG 10 (0-99); PLATELET COUNT 285 10^3/uL (150-400); RED BLOOD CELL COUNT 2.92 10^6/uL (4.40-6.38); RED CELL DISTRIBUTION WIDTH 14.8 % (11.5-15.2)
[2017-05-02] MEDS ORDERED: METOCLOPRAMIDE 10 MG/2 ML VIAL IVP ONE (13:25)
[2017-05-02 13:29] LABS: INR 1.02 (0.83-1.16); PROTIME(PATIENT) 13.3 SEC (12.0-15.0)
[2017-05-02 13:30] LABS: APTT 30.6 SEC (23.0-38.0)
[2017-05-02] MEDS ORDERED: FUROSEMIDE 40 MG/4 ML VIAL IVP ONE (14:14)
[2017-05-02] MEDS ORDERED: LORazepam 2 MG/ML INJ IVP ONE (14:28)
[2017-05-02] MEDS ORDERED: ONDANSETRON DISINTEGRATING 4 MG TAB PO PRN (14:43)
[2017-05-02] MEDS ORDERED: ONDANSETRON 4 MG/2 ML VIAL IVP PRN (14:43)
[2017-05-02] MEDS ORDERED: ALBUTEROL 200 PUFFS/18 GM MDI IH PRN ×2 (14:46→15:51)
[2017-05-02 14:55] LABS: ALBUMIN 3.6 g/dL (3.5-5.0); BILIRUBIN,TOTAL 0.6 mg/dL (0.1-1.4); BILIRUBIN-CONJUGATED 0.6 mg/dL (0.0-0.5); CALCIUM 9.1 mg/dL (8.5-10.4); CARBON DIOXIDE 26 mEq/l (22-31); CHLORIDE 98 mEq/L (97-110); GLOMERULAR FILTRATION RATE 7; GLUCOSE 96 mg/dL (70-100); TOTAL PROTEIN 6.5 g/dL (6.3-8.2)
[2017-05-02 15:00] LABS: CREATININE 9.6 mg/dL (0.7-1.3)
[2017-05-02 15:02] LABS: ALANINE AMINOTRANSFERASE 83 IU/L (21-72); ALKALINE PHOSPHATASE 70 IU/L (38-126); ANION GAP 16 mEq/L (8-16); ASPARTATE AMINOTRANSFERASE 51 IU/L (17-59); POTASSIUM 5.6 mEq/L (3.5-5.2); SODIUM 140 mEq/L (134-144)
[2017-05-02] MEDS ORDERED: OXYCODONE/APAP 5/325 TAB ONE (15:08)
[2017-05-02] MEDS: OXYCODONE/APAP 5/325 TAB PO PRN (15:10)
[2017-05-02 15:13] LABS: TROPONIN I 0.016 ng/mL (0.000-0.034)
--- NOTE | 2017-05-02 15:36 | GHP ---
[f rep st] HISTORY AND PHYSICAL DATE OF ADMISSION: 05/02/2017 HISTORY OF PRESENT ILLNESS: The patient is a 26-year-old gentleman with a history of end-stage renal disease secondary to solitary kidney, as well as recently diagnosed mitral regurgitation, who presen galina to the ER with increasing shortness of breath. He was discharged from the hospital just last , where he was diagnosed with a viral illness and dyspnea, sent home on oxygen. Echo during that ad mission showed that he had moderate to severe mitral regurgitation and hypertension. He was seen by Dr. Rogel of Cardiothoracic Surgery who recommended blood pressure control and management prior to pr oceeding with valvular surgery. Since then, he has had about 10 feet of walking dyspnea, unable to g o up stairs. He has noted swelling in his left leg but not his right. He does comment that during h is last couple dialyses, he has been under his dry weight. Notably, the patient is unaware that his dry weight has been adjusted in the 4 years that he has been on dialysis. No fever, no chills. He does have cough with some sputum. It is not purulent. REVIEW OF SYSTEMS: Complete 10-point review of systems conducted, negative, except as noted in the H PI. PAST MEDICAL HISTORY: 1. Severe mitral regurgitation. 2. Systolic heart failure with an LVEF of 45%. 3. End-stage renal disease secondary to solitary kidney. 4. History of AV fistula placement. 5. Anemia of chronic kidney disease. 6. Cholecystectomy. FAMILY HISTORY: Notable for mother and father with hypertension. ALLERGIES: He has no known drug allergies. MEDICATIONS: His home medications are minoxidil, metoprolol, Percocet, and albuterol. He was prescr ibed Norvas during his last admission. It does not appear that he started taking it. SOCIAL HISTORY: No alcohol. Occasional marijuana. Does smoke some cigarettes. He has not been abl e to finish a cigarette in about a week because of dyspnea. Lives with his mother, on disability. Alonso wendy rivera. PHYSICAL EXAMINATION: PRESENTING VITALS: Temp 36.9, blood pressure 162/122, pulse 90, breathing 18 times a minute, 100% on 1 L. GENERAL: In no acute distress. HEENT: Sclerae anicteric. Oropharynx clear. Mucous membranes are moist. NECK: Supple. There is no JVD at the angle of the jaw, sittin g at 45 degrees. LUNGS: Rhonchorous, with crackles at the bases. HEART: S1, S2, with a holosystoli c murmur heard best at the left upper sternal border. ABDOMEN: Soft, nontender, nondistended. LOWE R EXTREMITIES: Trace edema on the right, 1+ edema on the left. SKIN: Without rash. NEUROLOGIC: E xam is nonfocal. LABS: White count is 6.8, hematocrit 28, which is about his baseline. Platelets 285,000. His coags are normal. His D-dimer is elevated at 1.7. Chem-7 is pending. BNP from the 15 was 76,600. He has a lower extremity ultrasound showing no DVT. Chest x-ray, interpreted by me, shows cardiomegaly and pulmonary edema. His echocardiogram performed on 04/27/2017 shows concentric LVH, with mild redu ction in systolic function at 45%, global hypokinesis. Left atrium is [id number] dilated. H e has evidence of volume overload and elevated right atrial pressure. He has severe mitral regurgita tion with posterior leaflet pathology. I have discussed the case with Dr. Jadiel Huang. ASSESSMENT/PLAN: A 26-year-old gentleman with end-stage renal disease and mitral valve disease, who presents with clinical systolic heart failure. 1. Systolic heart failure secondary to valvular disease and low EF. The patient is volume overloade d. We will diurese. He does continue to make urine. I will give him 80 q.8 of Lasix. Also, I thin k the patient's dry weight probably needs to be adjusted, and he needs more aggressive fluid removal on dialysis. Ultimately, the patient may need consideration of valvular surgery but cannot be made u ntil he is euvolemic. 2. Hypertension. The patient is volume overloaded. We will obtain euvolemia and then consider manjula tional antihypertensives versus his blood pressure will improve. 3. Anemia secondary to chronic kidney disease. Follow. 4. End-stage renal disease, as above. 5. Prophylaxis. Pharmacologic prophylaxis indicated, subcu heparin t.i.d. DISPOSITION: Inpatient status, PCU. Full code. /[id number]/MODL
--- NOTE | 2017-05-02 15:38 | CPEKG ---
Heart Rate: 86 RR Interval: 698 P-R Interval: 128 QRSD Interval: 78 QT Interval: 396 QTC Interval: 474 P Mildred: 38 QRS Mildred: 11 T Wave Mildred: 111 EKG Severity - ABNORMAL ECG - EKG Impression: SINUS RHYTHM EKG Impression: Dynamic T-wave changes Preliminary Awaiting MD Review
[2017-05-02] MEDS: MINOXIDIL 2.5 MG TAB PO SCH (20:29)
[2017-05-02] MEDS: FUROSEMIDE 100 MG/10 ML VIAL IVP SCH (20:29)
[2017-05-02] MEDS: METOPROLOL TARTRATE 50 MG TAB PO SCH (20:29)
[2017-05-02] MEDS: oxyCODONE IR 5 MG TAB PO PRN (21:14)
[2017-05-02] MEDS: HEPARIN 5,000 UNIT/0.5 ML SYR SC SCH (21:15)
[2017-05-02] MEDS: HYDROmorphONE/DILAUDID 1 MG/ML INJ IVP PRN (22:56)
[2017-05-03 04:47] LABS: % IMMATURE GRANULYOCYTES 0.7 % (0.0-1.1); ABSOLUTE IMMATURE GRANULOCYTES 0.05 10^3/uL (0.00-0.10); ADD DIFF? NO; ADD MORPH? NO; ADD SCAN? NO; ATYPICAL LYMPHOCYTE FLAG 0 (0-99); FRAGMENT RBC FLAG 0 (0-99); HEMOGLOBIN 7.4 g/dL (13.7-17.5); LEFT SHIFT FLG 0 (0-99); LIPEMIA HEMOLYSIS FLAG 80 (0-99); MEAN CELL HEMOGLOBIN 29.7 pg (27.9-34.1); MEAN CELL HEMOGLOBIN CONCENTR. 30.8 g/dL (32.4-36.7); MEAN CELL VOLUME 96.4 fL (81.5-99.8); MEAN PLATELET VOLUME 9.8 fL (8.7-11.7); PLATELET CLUMPS FLAG 0 (0-99); PLATELET COUNT 243 10^3/uL (150-400); RED BLOOD CELL COUNT 2.49 10^6/uL (4.40-6.38); RED CELL DISTRIBUTION WIDTH 14.7 % (11.5-15.2)
[2017-05-03] MEDS: FUROSEMIDE 100 MG/10 ML VIAL IVP SCH ×3 (04:50→20:12)
[2017-05-03] MEDS: HYDROmorphONE/DILAUDID 1 MG/ML INJ IVP PRN ×5 (04:59→22:04)
[2017-05-03 05:11] LABS: ANION GAP 15 mEq/L (8-16); CALCIUM 8.3 mg/dL (8.5-10.4); CARBON DIOXIDE 22 mEq/l (22-31); CHLORIDE 101 mEq/L (97-110); GLOMERULAR FILTRATION RATE 6; GLUCOSE 75 mg/dL (70-100); SODIUM 138 mEq/L (134-144)
[2017-05-03 05:35] LABS: CREATININE 10.5 mg/dL (0.7-1.3)
[2017-05-03] MEDS: HEPARIN 5,000 UNIT/0.5 ML SYR SC SCH ×3 (06:08→21:16)
--- NOTE | 2017-05-03 09:01 | PDCONSULT ---
Facility Service Manager Note: Chief Complaint: Shortness of breath HPI: The patient is a 26 y/o M with a known h/o ESRD on HD MWF at [facility] who presented to the ED yesterday c/o shortness of breath and some angina. The patient has been non-compliant with his dialysis in the past. In addition, he has a h/o mitral valve regurgitation and was recently evaluated for valve replacement by CT surgery. Today, he states that he has been compliant with dialysis recently and is running 2-3lbs under his dry weight. This was confirmed by his unit that states he has been unable to tolerate the last 10-15 minutes of HD because of headache and they feel he is declining. In addition, the patient states he is unable to walk a block or lie flat at night without feeling like there is something sitting on his chest and he cannot breathe. He denies fever, chills, or cough. He is mostly upset b/c he is unable to care for his children. Also had recent AVF fistulagram with angioplasty and no issues since that time. Denies h/o IV drug use, endocarditis, or other heart issues. PMH: ESRD with solitary kidney, MV regurgitation, systolic heart failure, HTN, HL, and 2/2 hyperparathyroidism PSH: AVF placement, cholecystectomy Social Hx: +nicotine abuse, +marijuana, -ETOH, denies h/o IV drug use. Family Hx: +HTN in both parents NKDA Medications: Reviewed. ROS: Negative 10 point review except as above. Objective: Temp Pulse Resp BP Pulse Ox 36.6 C 87 16 159/122 H 99 05/03/17 07:59 05/03/17 07:59 05/03/17 07:59 05/03/17 07:59 05/03/17 07:59 O2 (L/minute) 2 Physical Exam: Gen: A+Ox3, NAD HEENT: EOMI, no trauma Neck: Supple, no thyromegaly Heart: RRR, murmur LLSB, no rub Lung: Decreased breath sounds at bases, no crackles noted Abd: Soft, NT, ND EXT: AVF in place L wrist, good thrill, no edema Neuro: NOn-focal, cooperative Skin: No rashes Labs: Reviewed Imaging: Chest X-Ray 05/02/17 13:04 Impression: Worsening interstitial pulmonary edema with minimal bilateral pleural effusions. Extremity Venous Study 05/02/17 13:04 Impression: No deep venous thrombosis right leg. Assessment/Plan: 26 y/o M with ESRD, non-compliant presents for SOB and angina. Etiology most likely due to valvular issues as patient has been going to dialysis regularly and had difficulty tolerating it. ESRD on HD MWF [facility] -access L gamal, no issues -sees Dr. Clark Rawls -HD today, 0-1kg removal -do not anticipate need for HD tomorrow HTN/vol: -1kg under dry weight, CXR shows pulmonary edema -will UF 1-2kg today -continue metoprolol, minoxidil, and lasix -hydralazine for SBP>160 prn -cardiology consult today, Dr. Lieberman Anemia -Hb 7.4, no evidence of bleeding -will consider transfusion 2U per primary team with HD -iron studies ordered, will dose EPO as well BMD -check daily phos -renal, low salt diet Mitral regurgitation with CHF -serial cardiac markers and EKG per primary team -recent echo with EF 45% -BNP >71708 -seen by Dr. Hodgson on 05/01 who wanted to repeat echo in 1 month and control BP , will contact office Will continue to follow, thank you for this consult.
[2017-05-03] MEDS: METOPROLOL TARTRATE 50 MG TAB PO SCH ×2 (09:21→20:13)
[2017-05-03] MEDS: MINOXIDIL 2.5 MG TAB PO SCH ×2 (09:21→20:13)
--- NOTE | 2017-05-03 10:27 | ASMTCMCOM ---
CM Note CM Note Notes: Chart reviewed, pt is a 26 y/o male admitted w/ pulmonary edema. Pt was recently at [facility] last week and dx w/ viral illness and dyspnea. Pt was d/c with oxygen. Pt has a hx of end-stage renal disease secondary to solitary kidney, as well as recently dx w/ mitral regurgitation. CM spoke w/ SHAVON Dowd regarding POC. Pt is getting dialysis today. Pt goes to [facility] for his dialysis. No therapies ordered at this time. Anticipating discharging independent when medically stable. CM will follow if needs arise. Date Signed: 05/03/2017 10:26 AM Electronically Signed By:ELIDIA Francisco
[2017-05-03 11:05] LABS: % SATURATION 17 % (20-55); TOTAL IRON BINDING CAPACITY 263 ug/dL (260-490)
[2017-05-03] MEDS: hydrALAZINE 25 MG TAB PO SCH ×4 (11:42→20:12)
--- NOTE | 2017-05-03 11:43 | HOSPPROG ---
Hospitalist Progress Note Assessment/Plan: Assessment: 26-year-old male presents with acute shortness of breath in the setting of acute systolic congestive heart failure exacerbation, end-stage renal disease, hypertensive urgency, severe mitral valve regurgitation Plan: 1. Systolic congestive heart failure exacerbation. Acute, evidenced by BNP of [id number] with interstitial edema on chest x-ray, personally interpreted, ejection fraction around 45% -likely secondary to a combination of uncontrolled hypertension as well as severe mitral regurgitation -receive dialysis today -continue on IV Lasix 80 mg q.8 hours, monitor urine output -additional antihypertensives introduced by Nephrology -monitor for improvement in symptoms with these interventions 2. End-stage renal disease. Most likely exacerbating patient's blood pressure as well as hypovolemia, that said, the patient has been adherent to his hemodialysis session -hemodialysis today, renal consult appreciated 3. Severe mitral valve regurgitation. Patient has been seen by Dr. Olman Rogel for consultation in the recent past, it was recommended the patient's blood pressure and volume status be addressed prior to consideration of valve surgery -we are addressing patient's volume status and hypertension at this time -I would recommend reconsideration of valve surgery in the very near future -I have discussed with Tatianna Jason, cardiology provider, consultation appreciated, she reports that Dr. Dani Sheikh will evaluate this patient today and hopefully we can work to expedite patient's cardiothoracic surgery evaluation once his blood pressure volume status have been optimized 4. Hypertensive urgency. Patient recently initiated on metoprolol as an outpatient, has been on minoxidil for some time, patient has been initiated on Lasix, hydralazine, amlodipine today, gauge effect 5. Shortness of breath. Most likely secondary to combination of all the above, patient's D-dimer is significantly elevated, and he is unable to get a CT angiogram -get V/Q scan tomorrow to rule out pulmonary embolism given we are considering this patient for surgery in the near future and this would be a significant complicating factor if present 6. Anemia of chronic kidney disease. Hemoglobin level 7.4, most likely not causing his shortness of breath symptoms as this is a chronic issue -defer EPO management to Nephrology -no indication for blood transfusion at this time 7. Hyperkalemia. Acute, secondary to end-stage renal disease, dialyzed Diet. Regular Prophylaxis. High risk patient, heparin subcu Code. Full Disposition. Anticipated discharge uncertain this time, requiring further workup and management of all the conditions outlined above. High-level of medical complexity, high risk of worsening morbidity and/or mortality secondary to the issues outlined above. Subjective: reports he is still short of breath with most activity Objective: Vital Signs Temp Pulse Resp BP Pulse Ox 36.8 C 81 17 157/109 H 99 05/03/17 11:05 05/03/17 11:05 05/03/17 11:05 05/03/17 11:05 05/03/17 11:05 Laboratory Results 05/03/17 04:10 05/03/17 04:10 05/02/17 05/03/17 05/04/17 05:59 05:59 05:59 Intake Total 490 Output Total 100 Balance 490 -100 PT 13.3 SEC (12.0-15.0) 05/02/17 13:10 INR 1.02 (0.83-1.16) 05/02/17 13:10 - Physical Exam Constitutional: no apparent distress, not in pain, chronically ill appearing, No uncomfortable Cardiovascular: systolic murmur (III/ at apex radiating into axilla), No irregularly irregular, No tachycardia, No edema Respiratory: inspiratory crackles (posterior bases and mid posterior segments), No expiratory wheeze, No bronchial breath sounds, No respiratory distress Gastrointestinal: normoactive bowel sounds, soft, non-tender abdomen, no palpable masses Neurologic: AAOx3, sensation intact bilaterally, No facial droop Psychiatric: interacting appropriately, not anxious, not encephalopathic, thought process linear ICD10 Worksheet Patient Problems: Problems Problem Status Onset Hyperkalemia Acute Admission for dialysis Acute Left ankle sprain Acute ESRD (end stage renal disease) Acute Hypoxemia Acute Shortness of breath Acute CKD (chronic kidney disease) stage V requiring chronic dialysis Acute Pulmonary edema Acute
[2017-05-03] MEDS ORDERED: NITROGLYCERIN 0.4 MG BTL SL PRN (16:20)
--- NOTE | 2017-05-03 18:03 | PDHPUP ---
History & Physical Update H&P update statement: This history and physical update is based on an assessment of the patient which was completed after admission or registration (within 24 hours), but prior to the surgery/procedure. H&P update: H&P reviewed & patient examined (patient with ongoing anginal chest pain.)
--- NOTE | 2017-05-03 18:03 | PDPROPOC ---
Sedation Plan of Care Sedation Plan of Care: vital signs stable, mental status noted, patient educated of risks, benefits, alternatives, patient can tolerate sedation ASA Classification: ASA 3 Planned drugs: fentanyl, midazolam, other (possible etomidate) Mallampati Score: Class 2 Mallampati Reference Image: Patient passed 3-3-2 rule?: Yes
[2017-05-03] MEDS: oxyCODONE IR 5 MG TAB PO PRN (20:13)
[2017-05-03] MEDS: TEMAZEPAM 15 MG CAP PO PRN (20:13)
[2017-05-04] MEDS: HYDROmorphONE/DILAUDID 1 MG/ML INJ IVP PRN ×4 (04:07→16:19)
[2017-05-04] MEDS: FUROSEMIDE 100 MG/10 ML VIAL IVP SCH ×3 (04:49→21:24)
[2017-05-04 05:19] LABS: ABSOLUTE IMMATURE GRANULOCYTES 0.06 10^3/uL (0.00-0.10); ADD DIFF? NO; ADD MORPH? NO; ADD SCAN? NO; ATYPICAL LYMPHOCYTE FLAG 10 (0-99); FRAGMENT RBC FLAG 0 (0-99); HEMATOCRIT 25.3 % (40.0-51.0); LEFT SHIFT FLG 0 (0-99); LIPEMIA HEMOLYSIS FLAG 80 (0-99); MEAN CELL HEMOGLOBIN 29.5 pg (27.9-34.1); MEAN CELL HEMOGLOBIN CONCENTR. 31.6 g/dL (32.4-36.7); MEAN CELL VOLUME 93.4 fL (81.5-99.8); MEAN PLATELET VOLUME 9.7 fL (8.7-11.7); PLATELET CLUMPS FLAG 0 (0-99); PLATELET COUNT 274 10^3/uL (150-400); RED BLOOD CELL COUNT 2.71 10^6/uL (4.40-6.38); RED CELL DISTRIBUTION WIDTH 14.7 % (11.5-15.2)
[2017-05-04 05:29] LABS: ANION GAP 11 mEq/L (8-16); CALCIUM 8.8 mg/dL (8.5-10.4); CARBON DIOXIDE 26 mEq/l (22-31); CHLORIDE 98 mEq/L (97-110); CHOLESTEROL 127 mg/dL (140-200); CREATININE 7.4 mg/dL (0.7-1.3); GLOMERULAR FILTRATION RATE 9; GLUCOSE 80 mg/dL (70-100); HIGH DENSITY LIPOPROTEIN 27 mg/dL (40-70); LDL/HDL RATIO 3.19 RATIO (1.00-3.64); LOW DENSITY LIPOPROTEIN 86 mg/dL (60-100); MAGNESIUM 2.4 mg/dL (1.6-2.3); NON-HIGH DENSITY LIPOPROTEIN 100 mg/dL (90-129); POTASSIUM 5.3 mEq/L (3.5-5.2); SODIUM 135 mEq/L (134-144); TRIGLYCERIDE 70 mg/dL (40-150); VERY LOW DENSITY LIPOPROTEINS 14 mg/dL (8-25)
[2017-05-04 05:33] LABS: APTT 31.6 SEC (23.0-38.0); INR 1.06 (0.83-1.16); PROTIME(PATIENT) 13.7 SEC (12.0-15.0)
[2017-05-04] MEDS ORDERED: diphenhydrAMINE 25 MG CAP PO ONE ×2 (06:00→09:45)
[2017-05-04] MEDS ORDERED: ASPIRIN EC 325 MG TAB PO ONE ×2 (06:00→09:45)
[2017-05-04] MEDS ORDERED: FAMOTIDINE 20 MG TAB PO ONE ×2 (06:00→09:45)
[2017-05-04] MEDS ORDERED: NS 1,000 ML IV ONE (06:00)
[2017-05-04] MEDS ORDERED: DIAZEPAM 5 MG TAB PO ONE ×2 (06:00→09:45)
[2017-05-04] MEDS: ACETAMINOPHEN 325 MG TAB PO PRN (06:33)
--- NOTE | 2017-05-04 08:20 | CPEKG ---
Heart Rate: 76 RR Interval: 789 P-R Interval: 124 QRSD Interval: 84 QT Interval: 408 QTC Interval: 459 P Winburne: 34 QRS [place]: 23 T Wave [place]: 122 EKG Severity - ABNORMAL ECG - EKG Impression: SINUS RHYTHM EKG Impression: NONSPECIFIC T ABNORMALITIES, LATERAL LEADS Electronically Signed By: Marcia Jc 04-May-2017 14:41:27
--- NOTE | 2017-05-04 08:20 | PDSURGCRDT ---
CardioThoracic Surgery Note - Objective Objective: Vital Signs Temp Pulse Resp BP Pulse Ox 36.8 C 90 12 167/118 H 94 05/04/17 03:51 05/04/17 03:51 05/04/17 03:51 05/04/17 03:51 05/04/17 03:51 Laboratory Results 05/04/17 04:01 05/04/17 04:01 05/03/17 05/04/17 05/05/17 05:59 05:59 05:59 Intake Total 490 2740 Output Total 2620 200 Balance 490 120 -200 Pt known to me. Has chronic renal insufficiency. Had viral illness a few weeks ago and since has had CP and sig GAMBINO. ECHO shows severe MR with decreased LV function and sig LVH. Pathology of valve is not entirely clear. BP is chronically high and was previously poorly treated. My plan was to work on BP control and let his heart recover from the viral illness (in case viral myopathy is part of the problem) Since admit his BP is starting to get under better control but still too high. He does still have GAMBINO. Would continue to push BP lower and then repeat ECHO next week and we can decide about surgical intervention. My concern about surgery is that if his BP control is not good, any repair will fail. Also, socially, he is not a good candidate for valve replacement and needed anticoagulation. Exam Temp Pulse Resp BP Pulse Ox 36.8 C 90 12 167/118 H 94 05/04/17 03:51 05/04/17 03:51 05/04/17 03:51 05/04/17 03:51 05/04/17 03:51 O2 (L/minute) 1
[2017-05-04] MEDS: HEPARIN 5,000 UNIT/0.5 ML SYR SC SCH ×3 (08:22→23:41)
[2017-05-04] MEDS: amLODIPine BESYLATE 5 MG TAB PO SCH (08:38)
[2017-05-04] MEDS: METOPROLOL TARTRATE 50 MG TAB PO SCH (08:38)
[2017-05-04] MEDS: MINOXIDIL 2.5 MG TAB PO SCH (08:38)
[2017-05-04] MEDS: hydrALAZINE 25 MG TAB PO SCH ×4 (08:39→21:24)
--- NOTE | 2017-05-04 09:23 | PDCARPN ---
Cardiology Progress Note Chief Complaint: Pt complains of sob and cough. Assessment/Plan: Assessment: 1. Severe MR 2. Systolic Congestive Heart Failure with LVEF 45% 3. Hypertension 4. Chest pain 5.. ESRD secondary to solitary kidney Plan: 1. Continue current anti hypertensive medications 2. Left heart catheterization today in the setting of chest pain as well as pre op eval for potential MVR 3. Arrange for HD after [facility] today 4. Will discuss with CT surgery after [facility] 05/04/17 09:20 Subjective: 26 year old admitted with heart failure symptoms and hypertensive urgency. Pt with severe MR and has been seen by CT surgery for consideration of MVR. His BP has improved with current medical therapy. Continues to have 2 pillow orthopnea and cough with ambulation. Reviewed/Discussed With: multidisciplinary team Time Spent With Patient: 30 minutes Objective: Vital Signs (8 Hrs) Temp Pulse Resp BP Pulse Ox 05/04/17 08:00 36.9 C 83 15 147/107 H 96 05/04/17 03:51 36.8 C 90 12 167/118 H 94 Intake/Output (24 Hrs) 05/03/17 05/04/17 05/05/17 05:59 05:59 05:59 Intake Total 490 2740 Output Total 2620 200 Balance 490 120 -200 Intake: Oral (ml) 440 2740 IV Infused (ml) 50 Output: Urine (ml) 620 Urinal 620 Dialysis Fluid Removed 2000 Emesis (ml) 200 Other: Weight 72.3 kg 70.5 kg Number of Voids 1 Urinal 6 Number of Emesis 1 Occurrences Result Diagrams: 05/04/17 04:01 05/04/17 04:01 - Physical Exam Constitutional: no apparent distress Eyes: anicteric sclera Cardiovascular: regular rate and rhythm, systolic murmur Peripheral Pulses: 2+: carotid (R), carotid (L) Respiratory: clear to auscultate bilat Gastrointestinal: normoactive bowel sounds Skin: no rashes Musculoskeletal: no muscular tenderness Neurologic: AAOx3, CN II-XII grossly intact Psychiatric: cooperative, interactive, following commands ICD10 Worksheet Patient Problems: Problems Problem Status Onset Pulmonary edema Acute Shortness of breath Acute Admission for dialysis Acute CKD (chronic kidney disease) stage V requiring chronic dialysis Acute ESRD (end stage renal disease) Acute Hyperkalemia Acute Hypoxemia Acute Left ankle sprain Acute
[2017-05-04] MEDS ORDERED: LIDOCAINE 1% 300 MG/30 ML SDV ONE (09:24)
[2017-05-04] MEDS ORDERED: MIDAZOLAM 2 MG/2 ML VIAL ONE ×2 (09:25→10:19)
[2017-05-04] MEDS ORDERED: fentaNYL 100 MCG/2 ML INJ ONE ×2 (09:25→11:10)
[2017-05-04] MEDS ORDERED: HEPARIN 10,000 UNIT/10 ML MDV ONE (09:25)
[2017-05-04] MEDS ORDERED: VERAPAMIL 5 MG/2 ML VIAL ONE (09:26)
[2017-05-04] MEDS ORDERED: IOPAMIDOL (ISOVUE-370) 150 ML BTL IV ONE (09:26)
[2017-05-04] MEDS ORDERED: METOPROLOL TARTRATE 5 MG/5 ML INJ ONE ×2 (10:59→11:03)
[2017-05-04] MEDS ORDERED: oxyCODONE IR 5 MG TAB ONE ×2 (11:58→12:01)
[2017-05-04] MEDS: oxyCODONE IR 5 MG TAB PO PRN ×2 (12:02→17:26)
[2017-05-04] MEDS ORDERED: ATROPINE SULFATE 1 MG/10 ML SYR IVP PRN (12:26)
--- NOTE | 2017-05-04 13:26 | CPIP ---
[f rep st] INVASIVE CARDIAC PROCEDURE DATE OF PROCEDURE: 05/04/2017 PROCEDURE PERFORMED: 1. Selective coronary angiography. 2. Left heart catheterization. 3. Left ventriculogram. 4. Angio-Seal arteriotomy repair from a right femoral approach. COMPLICATIONS: None. INDICATIONS/APPROPRIATE USE CRITERIA: The patient has new onset heart failure with associated severe CCS Class III symptoms of angina and has a lifelong history of hypertension and has been on dialysis intermittently for the last 4 years. His EKG is also abnormal, revealing a prominent Q-wave in lead 3, nonspecific ST-T abnormalities with ST-segment depression, T-wave inversion in 1 and aVL, and bor derline voltage criteria for left ventricular hypertrophy. PROCEDURE IN DETAIL: After informed consent was obtained, and n.p.o. status was confirmed, the regio n of the right groin was cleaned prepped and draped in sterile fashion. Fluoroscopy was used to dete rmine the location of the femoral head. A micropuncture set was used to gain access to the right com mon femoral artery with a single anterior puncture of the vessel. A 6-Chadian sheath was then placed to the right common femoral and angiography documented the location of the vessel. The left main cor onary lumen is approximately 8 mm in size. There is calcification on cinefluoroscopy, consistent wit h atherosclerosis of the distal left main. This does not cause luminal irregularity, but is clearly most likely an atherosclerotic plaque. The left main bifurcates into an LAD and circumflex system. The proximal LAD is large and approximately 5 mm in size. There is a luminal irregularity at the lev el of the septal takeoff, which is estimated to be a 20% luminal narrowing. The LAD gives rise to a series of diagonal and septal branches and close the anterior apex without flow-limiting obstruction, dissection, or thrombus. The left circumflex obtuse marginal system is free of flow-limiting diseas e and reveals RACHELL-3 flow. The right coronary artery is dominant, giving rise to the posterior desce nding and posterolateral ventricular branches. It is a large vessel, greater than 4 mm in size, with no evidence of flow-limiting obstruction, dissection, or thrombus. The patient underwent left heart catheterization, demonstrating elevated left ventricular end-diastolic pressure measured 21 mmHg. T he patient underwent a left ventriculogram in the PUGH projection, demonstrating globally decreased le ft ventricular systolic function. Ejection fraction is estimated to be 30-35%. There is associated grade 2 mitral regurgitation into an enlarged left atrium, which would indicate some degree of chroni city. FINAL IMPRESSION: Dilated cardiomyopathy with severely depressed left ventricular systolic function. Ejection fraction is 30-35% with at least grade 2 mitral regurgitation and evidence of left atrial enlargement, which would be more consistent with chronicity of mitral regurgitation. There is no brayan dence of aortic stenosis upon pullback across the aortic valve and the visualized portion of the thor acic aorta reveals 3 sinuses of Valsalva most consistent with a trileaflet aortic valve. There is no evidence of aortic dissection or aneurysm. PLAN: This patient should be kept in the hospital and his medical regimen tailored to someone that h as heart failure. I believe that his metoprolol should be changed to Coreg starting with low doses o f that medication, given that the patient is presenting with acute heart failure. Because of the esteban vation in the patient's potassium and his renal failure, I think the use of MARIZOL inhibition or ARB med ications is contraindicated at the present time, which would of course the preclude the use of Entres to, given that that is a combination pill, including an ARB medication also. Metoprolol tartrate is specifically known not to be beneficial in the treatment of heart failure and therefore I believe zulema t medication should be discontinued. Consideration for the addition of long-acting nitrates may also be helpful in improving the patient's heart failure symptoms and the severity of his mitral regurgit ation. I think the patient should be kept in the hospital until his heart failure symptoms have impr cely and we have documented excellent blood pressure control. If his symptoms continue to worsen in spite of medical management, and/or he has further decline in LV systolic function, he may be a patie nt who should be considered for referral to the [facility] for further management. /[id number]/MODL
[2017-05-04] MEDS: CARVEDILOL 3.125 MG TAB PO SCH ×2 (13:38→17:26)
--- NOTE | 2017-05-04 13:46 | GCON ---
[f rep st] CONSULTATION CARDIOLOGY CONSULTATION. DATE OF CONSULTATION: 05/03/2017 CHIEF COMPLAINT: Shortness of breath and chest pain. HISTORY OF PRESENT ILLNESS: The patient is a 26-year-old man with a life-long history of hypertensio n. He was born with a solitary kidney, and was born prematurely. He always had decreased renal func tion. He developed hypertension as a young child, and was treated for that until he grew into community health ood. When he left his mother's home, he no longer treated his blood pressure, and over the course of several years developed progressive renal insufficiency such that he developed end-stage renal disea se requiring dialysis for the past 4 years. He has been noncompliant with his dialysis, and would do that intermittently. Of note, is that he still does make urine. So he is able to control some of h is volume, but the kidney no longer is able to remove toxins from his body. He has presented 4 times to the hospital over the last 2 weeks with complaints of cough and shortness of breath, and has been admitted on 2 occasions. During his most recent hospitalization he underwent an echocardiogram whic h revealed severe mitral regurgitation with an anteriorly directed jet which would be consistent with posterior leaflet pathology. His left ventricle revealed mild concentric hypertrophy along with bas ically what appears to be functional mitral regurgitation. There is no evidence of a myxomatous dege neration of the mitral valve, mitral valve prolapse, or a ruptured cord. His main symptoms have been related to cough and nasal drainage. A nasal swab was used which revealed the presence of either en terovirus or rhinovirus. The particular genetic assay cannot differentiate between those 2 viruses, and that was positive during his most recent admission on 04/26. At the time of my evaluation, the patient states that he has developed symptoms of pounding of his he art with associated chest pressure and tightness, and breathlessness with walking from the couch to is bathroom in a small apartment. He therefore has shortness of breath basically at rest consistent with [place] [employer] class 4 symptoms of heart failure, and also has chest pressure and ti ghtness which would be consistent with CCS class 3 symptoms of angina. During his last hospitalizati on, Dr. Rogel was consulted because of the noted severe mitral regurgitation, and he recommended bett er blood pressure control and evaluation prior to any surgical intervention. PHYSICAL EXAMINATION: GENERAL: At the time of my evaluation, the patient is receiving dialysis. NICOLE SIGNS: His blood pressure was elevated at 137/92, heart rate 74 and regular, respirations are 16 , unlabored. NECK: No lymphadenopathy or thyromegaly. He has no carotid bruits. HEART: A normal S1 and S2 with a positive S4 and S3 summation gallop with associated systolic murmur consistent with mitral regurgitation best heard in the left axilla. LUNGS: Bilateral fine crackles in the posterior bases bilaterally with decreased breath sounds at the posterior base on the left side which may be c onsistent with an effusion. ABDOMEN: Scaphoid. He does not have hepatosplenomegaly or an obvious a bdominal aortic aneurysm or bruit. VASCULAR: His femoral dorsalis pedis, posterior tibial, and radia l pulses are 2+, symmetrical, and equal bilaterally. EXTREMITIES: He does not have peripheral edema . A right upper extremity shunt is in place and being utilized for dialysis at the time my evaluatio n. LABORATORY STUDIES: Reveal a white count of 7.34, H and H of 7.4 and 24.0 with normal MCV and MCH wi th an MCHC of 30.8. His anemia appears to be most consistent with that of anemia of chronic disease a nd likely related to his renal failure that is being managed by the nephrology team. His coags revea l a positive D-dimer at 1.74, but with a negative bilateral lower extremity ultrasound. His chemistr ies reveal sodium 138, potassium 6.0, BUN and creatinine of 59 and 10.5, calcium 8.3, iron is 44.0, T IBC 263, iron saturation is 17, and his ferritin is 141.0. His total cholesterol is 127, HDL is 27, LDL is 86. Triglycerides are normal. His lipase is also normal at 112. His N-terminal proBNP was m easured on the as 109,000. His AST was mildly elevated at 83, AST is 51, conjugated bilirubin i s at the upper limits of normal at 0.6. IMPRESSION/PLAN: This patient has anginal-quality chest discomfort with associated heart failure whi ch is likely multifactorial and may be secondary to burned out hypertensive cardiomyopathy given his long history of severe hypertension which has been measured to be as high as 220 per the patient's ow n report. The patient also has severe mitral regurgitation which appears to be mainly functional. H is overall condition would be unlikely to be improved with a surgical repair. There may be a superim posed postviral cardiomyopathy superimposed on his underlying cardiac dysfunction as a reason for his recent issues. I have discussed his case with the nephrology team, specifically with Dr. Anuel sullivan, and because he is already on chronic dialysis, she believes it would be reasonable for him to undergo cardiac catheterization to rule out flow-limiting obstruction or anomalous coronary as a c ause for his anginal-quality chest discomfort. I think it is pertinent to do a heart catheterization on any patient who presents with acute heart failure. Again, I suspect his coronary circulation franck l most likely be proven to be normal, and that his heart failure is likely multifactorial and seconda ry to poorly controlled hypertension, chronic renal failure. Valvular heart disease obviously is not helping that issue, and then there may be a component of a viral cardiomyopathy as well. I will gagandeep christine santiago informed of the results of the heart catheterization tomorrow. I have explained the risks, jaya efits, and alternatives of this course of action to the patient, understands, willing to proceed as christine white. Copy requested to: Primary Care Physician /[id number]/MODL
[2017-05-04] MEDS: LORazepam 1 MG TAB PO PRN (16:19)
--- NOTE | 2017-05-04 16:26 | HOSPPROG ---
Hospitalist Progress Note Assessment/Plan: Assessment: 26-year-old male presents with acute shortness of breath in the setting of acute systolic and diastolic congestive heart failure exacerbation, end-stage renal disease, hypertensive urgency, severe mitral valve regurgitation Plan: 1. Systolic and diastolic congestive heart failure exacerbation. Acute, d/w Dr. Lieberman, he advises that patient likely has long-standing HTN which has resulted in cardiomyopathy, effecting MV annulus and resulting in worsening MR, as well as recent enterovirus infxn which may have acutely worsened his EF, which is now 30-35% on cath, was 45% a week ago - counseled patient extensively that strategy is two-fold, reduce volume w/ HD and reduce SBP - adjusted to hydralazine+nitrate, adjusted from metoprolol to carvedilol, ACEi/ ARB/aldactone contraindicated w/ intermittent hyperkalemia - monitor I/O, UOP 2. End-stage renal disease. Most likely exacerbating patient's blood pressure and symptoms of CHF - hemodialysis today, renal consult appreciated 3. Severe mitral valve regurgitation. Patient has been seen by Dr. Rogel for consideration of MVR, attempting to optimize him from a CHF/HTN standpoint prior to reassessing valve - LHC today demonstrating no coronary artery flow limiting stenosis 4. Hypertensive urgency. Adjusted Rx as above 5. Shortness of breath. 2/2 CHF, VQ neg for PE 6. Anemia of chronic kidney disease. Hemoglobin level 7.4, most likely not causing his shortness of breath symptoms as this is a chronic issue - defer EPO management to Nephrology - no indication for blood transfusion at this time 7. Hyperkalemia. Acute, secondary to end-stage renal disease, dialyzed Diet. Regular Prophylaxis. High risk patient, heparin subcu Code. Full Disposition. Anticipated discharge uncertain this time, requiring further workup and management of all the conditions outlined above. Subjective: patient is anxious, SOB when OOB Objective: Vital Signs Temp Pulse Resp BP Pulse Ox 36.8 C 90 14 139/77 H 94 05/04/17 15:26 05/04/17 15:26 05/04/17 15:26 05/04/17 15:26 05/04/17 15:26 Laboratory Results 05/04/17 04:01 05/04/17 04:01 05/03/17 05/04/17 05/05/17 05:59 05:59 05:59 Intake Total 490 2740 765 Output Total 2620 200 Balance 490 120 565 PT 13.7 SEC (12.0-15.0) 05/04/17 04:01 INR 1.06 (0.83-1.16) 05/04/17 04:01 - Time Spent With Patient Time Spent with Patient: greater than 35 minutes Time Spent with Patient: Greater than 35 minutes spent on this patients care, greater than 50% of time spent counseling, educating, and coordinating care regarding the above mentioned plan. - Physical Exam Constitutional: chronically ill appearing, uncomfortable Cardiovascular: systolic murmur (III/ at apex into axilla), No irregularly irregular, No tachycardia, No edema Respiratory: inspiratory crackles, No reduced air movement, No expiratory wheeze , No bronchial breath sounds Neurologic: AAOx3 Psychiatric: not encephalopathic, anxious, No agitated ICD10 Worksheet Patient Problems: Problems Problem Status Onset Hyperkalemia Acute Admission for dialysis Acute Left ankle sprain Acute ESRD (end stage renal disease) Acute Hypoxemia Acute Shortness of breath Acute CKD (chronic kidney disease) stage V requiring chronic dialysis Acute Pulmonary edema Acute
[2017-05-04] MEDS: OXYCODONE/APAP 5/325 TAB PO PRN (18:04)
[2017-05-04] MEDS: TEMAZEPAM 15 MG CAP PO PRN (21:35)
[2017-05-05 05:10] LABS: ANION GAP 13 mEq/L (8-16); CALCIUM 8.2 mg/dL (8.5-10.4); CARBON DIOXIDE 27 mEq/l (22-31); CHLORIDE 96 mEq/L (97-110); GLOMERULAR FILTRATION RATE 11; GLUCOSE 100 mg/dL (70-100); POTASSIUM 4.7 mEq/L (3.5-5.2); SODIUM 136 mEq/L (134-144)
[2017-05-05] MEDS: hydrALAZINE 25 MG TAB PO SCH ×4 (05:15→21:29)
[2017-05-05] MEDS: FUROSEMIDE 100 MG/10 ML VIAL IVP SCH (05:15)
[2017-05-05] MEDS: HEPARIN 5,000 UNIT/0.5 ML SYR SC SCH ×3 (07:44→21:30)
--- NOTE | 2017-05-05 07:47 | PDCARPN ---
Cardiology Progress Note Chief Complaint: Sob Assessment/Plan: Assessment: 1. Severe MR with tethering of posterior leaflet 2. Systolic Congestive Heart Failure with LVEF 30-35 (via ventriculogam) 3. CM most likely multifactorial including viral CM and hypertensive cm 4. HTN 5.. ESRD secondary to solitary kidney Plan: 1. Continue Hydralazine and Imdur 2. Continue Coreg 3.125 mg bid 3. Decrease Lasix to 80 mg IV bid 4. Labwork: check BNP and Mg 5. Would not recommend MVR at this time, plan on aggressive tx of CHF and HTN Time spent coordinating care: 25 min 05/05/17 07:48 Subjective: Mr. Perry is doing well this AM. He underwent diagnostic LHC yesterday demonstrating mild luminal irregularities with dilated LV with LVEF 30-35 and 2 + MR. In reviewing his echo, MR appears functional with tethering of posterior leaflet. His medications were modified including dc metoprolol and starting coreg and adding Imdur. Agree with avoid MARIZOL/ARB and Spironolactone in the setting of ESRD and hyperkalemia. He did under go HD post C yesterday. Note BP is markedly improved this AM, 120/66. Right groin site is mildly tender to palp without hematoma and distal pulses intact. Reviewed/Discussed With: multidisciplinary team Objective: Vital Signs (8 Hrs) Temp Pulse Resp BP Pulse Ox 05/05/17 05:15 120/66 05/05/17 03:54 36.5 C 96 16 120/66 96 Intake/Output (24 Hrs) 05/04/17 05/05/17 05/06/17 05:59 05:59 05:59 Intake Total 2740 4340 Output Total 2620 1700 Balance 120 2640 Intake: Oral (ml) 2740 3575 IV Intake (ml) 765 Output: Urine (ml) 620 Urinal 620 Dialysis Fluid Removed 1999 1500 Estimated Blood Loss (ml) 0 Emesis (ml) 200 Other: Weight 70.5 kg 71.4 kg Intake Quantity Yes Sufficient Number of Voids Urinal 6 2 Number of Emesis 1 Occurrences Result Diagrams: 05/05/17 03:31 05/05/17 03:31 - Physical Exam Cardiovascular: regular rate and rhythm, systolic murmur Peripheral Pulses: 2+: carotid (R), carotid (L), dorsalis-pedis (R), dorsalis- pedis (L) Respiratory: clear to auscultate bilat Gastrointestinal: normoactive bowel sounds Skin: no rashes Musculoskeletal: no muscular tenderness Psychiatric: cooperative, interactive, following commands ICD10 Worksheet Patient Problems: Problems Problem Status Onset Pulmonary edema Acute Shortness of breath Acute Admission for dialysis Acute CKD (chronic kidney disease) stage V requiring chronic dialysis Acute ESRD (end stage renal disease) Acute Hyperkalemia Acute Hypoxemia Acute Left ankle sprain Acute
[2017-05-05] MEDS: FUROSEMIDE 100 MG/10 ML VIAL IV SCH ×2 (08:56→19:40)
[2017-05-05] MEDS ORDERED: *PHM DO NOT USE-FUROSEMIDE 1MG/ML IV PED/NEWBORN SYR IV SCH (09:00)
[2017-05-05] MEDS: ISOSORBIDE MONONITRATE 30 MG TAB.SR PO SCH (09:01)
[2017-05-05] MEDS: CARVEDILOL 3.125 MG TAB PO SCH ×2 (09:01→18:09)
[2017-05-05] MEDS: amLODIPine BESYLATE 5 MG TAB PO SCH (09:01)
--- NOTE | 2017-05-05 10:59 | SOAPPROG ---
JAS[facility] Progress Note Assessment/Plan: Assessment: 1. ESRD. PUF today. HD tomorrow, MWF schedule. 2. CHF. suspected viral CM, severe MR. Metoprolol switched to coreg. Imdur, hydralazine. Even on HD MARIZOL/ARB can raise K so avoiding at this point. 3. HAs. Occur with HD. May be related to volume/tonicity shifts. Cool dialysate to 36C. Has percocet as outpatient. Plan: 05/05/17 10:49 Subjective: LHC from yesterday reviewed. No significant CAD. Svr MR. ZEPEDA, EF 35%. Had dialysis after LHC. C/o QUIGLEY with rx. 1.5 L UF. Breathing slightly better but still has philip walking to BR Objective: Vital Signs Temp Pulse Resp BP Pulse Ox 35.9 C L 83 14 133/74 H 93 05/05/17 07:43 05/05/17 07:43 05/05/17 07:43 05/05/17 07:43 05/05/17 07:43 Laboratory Results 05/05/17 03:31 05/05/17 03:31 05/04/17 05/05/17 05/06/17 05:59 05:59 05:59 Intake Total 2740 4340 Output Total 2620 1700 Balance 120 2640 PT 13.7 SEC (12.0-15.0) 05/04/17 04:01 INR 1.06 (0.83-1.16) 05/04/17 04:01 comfortable wm in bed, nad RRR, II/ sys murmur; JVD 7 cm Bibasilar crackles Abdom soft, nontender No edema L wrist AVF with great thrill ICD10 Worksheet Patient Problems: Problems Problem Status Onset Hyperkalemia Acute Admission for dialysis Acute Left ankle sprain Acute ESRD (end stage renal disease) Acute Hypoxemia Acute Shortness of breath Acute CKD (chronic kidney disease) stage V requiring chronic dialysis Acute Pulmonary edema Acute
[2017-05-05] MEDS ORDERED: NS 100 ML IV PRN (11:15)
[2017-05-05] MEDS: ACETAMINOPHEN 325 MG TAB PO PRN ×2 (12:32→19:39)
[2017-05-05] MEDS: oxyCODONE IR 5 MG TAB PO PRN ×2 (12:33→19:39)
--- NOTE | 2017-05-05 15:30 | HOSPPROG ---
Hospitalist Progress Note Assessment/Plan: Assessment: 26-year-old male presents with acute shortness of breath in the setting of acute systolic and diastolic congestive heart failure exacerbation, end-stage renal disease, hypertensive urgency, severe mitral valve regurgitation Plan: 1. Systolic and diastolic congestive heart failure exacerbation. Acute, patient likely has long-standing HTN which has resulted in cardiomyopathy, effecting MV annulus and resulting in worsening MR, as well as recent enterovirus infxn which may have acutely worsened his EF, which is now 30-35% on cath, was 45% a week ago - strategy is two-fold, reduce volume w/ HD and reduce SBP - good BP mgmt w/ hydralazine+nitrate, carvedilol, will need outpt Echo reassessment in approx 1-2 weeks - monitor I/O, UOP 2. End-stage renal disease. Most likely exacerbating patient's blood pressure and symptoms of CHF - d/w Dr. Foster, we agreed that volume removal is the most appropriate next step, will arrange for today 3. Severe mitral valve regurgitation. Patient has been seen by Dr. Rogel for consideration of MVR, attempting to optimize him from a CHF/HTN standpoint prior to reassessing valve - LHC demonstrating no coronary artery flow limiting stenosis 4. Hypertensive urgency. Adjusted Rx as above 5. Shortness of breath. 2/2 CHF, VQ neg for PE 6. Anemia of chronic kidney disease. Hemoglobin level 7.4, most likely not causing his shortness of breath symptoms as this is a chronic issue - defer EPO management to Nephrology - no indication for blood transfusion at this time 7. Hyperkalemia. Acute, secondary to end-stage renal disease, dialyzed 8. Headache. Chronic, s/p HD, rec trial of topamax, will start tomorrow 9. Suspected major depressive disorder. Evidenced by depressed mood x 12 months , daily crying, loss of pleasurable activities (which is exacerbated by his current poor physical health), feeling of hopelessness - reports lengthy hx beginning at age 12 w/ suicide attempt, hospitalization, then placed on klonopin x 7 years, discontinued 2/2 mood improvement - situationally worsened mood w/ divorce 12 months ago, symptoms persisted, then exacerbated w/ his current acute physical illness - likely has a situational/episodic component, but duration of sx warrants consideration of formal mood disorder - warrants trial of low dose sertraline, initiate 12.5mg now - counseled the patient that outpt f/u is critical, and he truly wants to improve, so he is actively seeking out outpt provider to continue his care - given situational exacerbation, OK to use ativan PRN while inpt, but counseled patient that benzo will not be part of his long-term mgmt Diet. Regular Prophylaxis. High risk patient, heparin subcu Code. Full Disposition. Anticipated discharge 05/07, pending stabilization of above. Subjective: headache, feeling anxious and depressed Objective: Vital Signs Temp Pulse Resp BP Pulse Ox 36.2 C 87 14 140/93 H 13 L 05/05/17 11:11 05/05/17 11:11 05/05/17 07:43 05/05/17 11:11 05/05/17 11:11 Laboratory Results 05/05/17 03:31 05/05/17 03:31 05/04/17 05/05/17 05/06/17 05:59 05:59 05:59 Intake Total 2740 4340 Output Total 2620 1700 400 Balance 120 2640 -400 PT 13.7 SEC (12.0-15.0) 05/04/17 04:01 INR 1.06 (0.83-1.16) 05/04/17 04:01 - Time Spent With Patient Time Spent with Patient: greater than 35 minutes Time Spent with Patient: Greater than 35 minutes spent on this patients care, greater than 50% of time spent counseling, educating, and coordinating care regarding the above mentioned plan. - Physical Exam Constitutional: chronically ill appearing, uncomfortable (a) Cardiovascular: systolic murmur (II/ apex), No irregularly irregular, No tachycardia, No edema Respiratory: inspiratory crackles (bilat bases), No reduced air movement, No expiratory wheeze, No bronchial breath sounds Neurologic: AAOx3 Psychiatric: not encephalopathic, thought process linear, anxious, depressed, No suicidal ideation, No agitated ICD10 Worksheet Patient Problems: Problems Problem Status Onset Hyperkalemia Acute Admission for dialysis Acute Left ankle sprain Acute ESRD (end stage renal disease) Acute Hypoxemia Acute Shortness of breath Acute CKD (chronic kidney disease) stage V requiring chronic dialysis Acute Pulmonary edema Acute
[2017-05-05] MEDS: SERTRALINE HCL 25 MG TAB PO SCH (18:09)
[2017-05-05] MEDS: LORazepam 1 MG TAB PO PRN (21:29)
[2017-05-06] MEDS ORDERED: amLODIPine BESYLATE 5 MG TAB PO SCH
[2017-05-06] MEDS ORDERED: CARVEDILOL 6.25 MG TAB PO SCH
[2017-05-06] MEDS ORDERED: ISOSORBIDE MONONITRATE 30 MG TAB.SR PO SCH
[2017-05-06] MEDS ORDERED: SERTRALINE HCL 25 MG TAB PO SCH
[2017-05-06] MEDS ORDERED: FUROSEMIDE 80 MG TAB PO SCH
[2017-05-06] MEDS ORDERED: hydrALAZINE 25 MG TAB PO SCH
[2017-05-06 04:42] LABS: HEMATOCRIT 25.5 % (40.0-51.0)
[2017-05-06 05:05] LABS: ANION GAP 13 mEq/L (8-16); CALCIUM 8.6 mg/dL (8.5-10.4); CARBON DIOXIDE 24 mEq/l (22-31); CHLORIDE 99 mEq/L (97-110); CREATININE 6.1 mg/dL (0.7-1.3); GLOMERULAR FILTRATION RATE 11; GLUCOSE 97 mg/dL (70-100); POTASSIUM 5.1 mEq/L (3.5-5.2); SODIUM 136 mEq/L (134-144)
[2017-05-06] MEDS: HEPARIN 5,000 UNIT/0.5 ML SYR SC SCH ×2 (06:00→14:58)
[2017-05-06] MEDS: hydrALAZINE 25 MG TAB PO SCH ×2 (06:00→13:42)
[2017-05-06] MEDS: ACETAMINOPHEN 325 MG TAB PO PRN (09:22)
[2017-05-06] MEDS: SERTRALINE HCL 25 MG TAB PO SCH (09:23)
[2017-05-06] MEDS: amLODIPine BESYLATE 5 MG TAB PO SCH (09:23)
[2017-05-06] MEDS: CARVEDILOL 3.125 MG TAB PO SCH (09:23)
[2017-05-06] MEDS: oxyCODONE IR 5 MG TAB PO PRN (09:23)
[2017-05-06] MEDS: ISOSORBIDE MONONITRATE 30 MG TAB.SR PO SCH (09:23)
[2017-05-06] MEDS: LORazepam 1 MG TAB PO PRN (09:46)
--- NOTE | 2017-05-06 09:48 | SOAPPROG ---
SO[facility] Progress Note Assessment/Plan: Assessment/Plan: ESRD: on HD MWF, had additional UF yesterday. - Pt seen on HD today per routine. - Next HD planned for Saturday. CHF: pt with severe mitral valve regurgitation and EF of 35%. - BP improving with medications and fluid removal via HD. - Appreciate Cardiology recs. - Pt with improved GAMBINO with fluid removal. HTN: SBP now 120s on HD, improved with fluid removal and current meds. Subjective: No acute events overnight. Pt had UF with additional 1500ml removed yesterday. He states that after that his breathing was much improved, no more dyspnea on exertion. He feels well today except that he is having a headache while on HD, which has been going on for months. Objective: Vital Signs Temp Pulse Resp BP Pulse Ox 37.0 C 88 18 173/98 H 96 05/06/17 07:48 05/06/17 07:48 05/06/17 07:48 05/06/17 07:48 05/06/17 07:48 Laboratory Results 05/06/17 03:26 05/06/17 03:26 05/05/17 05/06/17 05/07/17 05:59 05:59 05:59 Intake Total 4340 2600 Output Total 1700 1550 Balance 2640 1050 PT 13.7 SEC (12.0-15.0) 05/04/17 04:01 INR 1.06 (0.83-1.16) 05/04/17 04:01 General: alert and oriented, no acute distress Eyes: EOMI, PERRL OP: Clear CV: RRR Resp: nonlabored respirations on RA Abd: Soft, NT Ext: no edema BLE Neuro: CN II-XII grossly intact, no asterixis Psych: cooperative, appropriate mood and affect ICD10 Worksheet Patient Problems: Problems Problem Status Onset Pulmonary edema Acute Shortness of breath Acute Admission for dialysis Acute CKD (chronic kidney disease) stage V requiring chronic dialysis Acute ESRD (end stage renal disease) Acute Hyperkalemia Acute Hypoxemia Acute Left ankle sprain Acute
[2017-05-06 11:10] VITALS: RESP 16; TEMP 98.4
[2017-05-06] MEDS: FUROSEMIDE 100 MG/10 ML VIAL IV SCH (11:22)
[2017-05-06 13:44] VITALS: BP 145/76; PULSE 93; O2SAT 96
[2017-05-06] MEDS ORDERED: CARVEDILOL 3.125 MG TAB PO ONE (13:52)
[2017-05-06] MEDS ORDERED: TOPIRAMATE 25 MG TAB PO SCH ×2 (14:00)
--- NOTE | 2017-05-06 14:07 | PDCARPN ---
Cardiology Progress Note Assessment/Plan: Non-ischemic cardiomyopathy: LVEF 35%; query viral cardiomyoapthy; probable hypertensive component. Acute systolic CHF: apppears volume compensated; symptoms siginificantly improved; can make laps around the nursing unit without dyspnea. Severe mitral regugitation: likley functional; no clear intrinsic valve pathology on echo. Hypertension: still somewhat suboptimally controlled. - increase carvedilol to 6.25 mg BID. Disposition: appears to be stable for discharge. - will notify [facility] office staff to contact him to arrange for f/u appt. - has echo scheduled for 05/29. 05/06/17 14:03 Subjective: Feels markedly improved. Reviewed/Discussed With: hospitalist Objective: Vital Signs (8 Hrs) Temp Pulse Resp BP Pulse Ox 05/06/17 13:44 93 16 145/76 H 96 05/06/17 11:08 36.9 C 59 L 16 158/82 H 94 05/06/17 07:48 37.0 C 88 18 173/98 H 96 Intake/Output (24 Hrs) 05/05/17 05/06/17 05/07/17 05:59 05:59 05:59 Intake Total 4340 2600 Output Total 1700 1550 Balance 2640 1050 Intake: Oral (ml) 3575 2600 IV Intake (ml) 765 Output: Urine (ml) 1550 Urinal 1550 Dialysis Fluid Removed 1500 Estimated Blood Loss (ml) 0 Emesis (ml) 200 Other: Weight 71.4 kg 70 kg Intake Quantity Yes Sufficient Number of Voids Toilet 2 Urinal 2 Number of Emesis 1 Occurrences Result Diagrams: 05/06/17 03:26 05/06/17 03:26 - Physical Exam Constitutional: no apparent distress Eyes: anicteric sclera Ears, Nose, Mouth, Throat: moist mucous membranes Cardiovascular: regular rate and rhythm, no murmurs Respiratory: clear to auscultate bilat Gastrointestinal: normoactive bowel sounds, no tenderness, no masses Skin: no rashes, no edema Neurologic: AAOx3 Psychiatric: not anxious ICD10 Worksheet Patient Problems: Problems Problem Status Onset Hyperkalemia Acute Admission for dialysis Acute Left ankle sprain Acute ESRD (end stage renal disease) Acute Hypoxemia Acute Shortness of breath Acute CKD (chronic kidney disease) stage V requiring chronic dialysis Acute Pulmonary edema Acute
--- NOTE | 2017-05-06 17:05 | PDDCSUM ---
Discharge Summary Discharge Summary: DISCHARGE SUMMARY FOLLOW-UP ITEMS: Reassess ejection fraction as an outpatient and mitral regurgitation on echo DATE OF ADMISSION: 05/02/2017 DATE OF DISCHARGE: 05/06/2017 DISCHARGE DIAGNOSES: 1. Acute systolic and diastolic congestive heart failure exacerbation 2. End-stage renal disease 3. Severe mitral valve regurgitation 4. Hypertensive urgency 5. Anemia of chronic kidney disease 6. Acute hyperkalemia 7. Chronic headache 8. Suspected major depressive disorder CONSULTATIONS: Cardiology and Nephrology PROCEDURES / IMAGING: Left heart catheterization demonstrating no obstructive coronary lesions, severe mitral regurgitation, ejection fraction of 30-35% CHIEF COMPLAINT: Acute shortness of breath SUBJECTIVE: Patient is feeling well at time of discharge, he is ambulating around the unit without shortness of breath PHYSICAL EXAM ON DISCHARGE: Systolic blood pressure is 130, heart rate 80, afebrile overnight, satting well on room air, net-2.3 kg length of stay LABS ON DISCHARGE: Hemoglobin 8 BUN 34, potassium 5.1 HOSPITAL COURSE BY PROBLEM: 1. Systolic and diastolic congestive heart failure exacerbation. The patient was experiencing acute systolic CHF exacerbation in the setting of longstanding hypertension which has resulted in a cardiomyopathy, affecting his mitral valve annulus resulting in worsening mitral regurg. His situation may have also been exacerbated by recent enterovirus infection, potentiating of viral induced cardiomyopathy. His ejection fraction has declined from 45% recently to 30-35% on cardiac catheterization. He was symptomatically short of breath and was treated with lowering his blood pressure as well as reducing his overall volume. We are very successful on both of these friends, getting his systolic blood pressure into the ideal range and also removing fluid with dialysis. The patient has new medications including carvedilol, hydralazine, isosorbide, Lasix , amlodipine, and his other home medications including metoprolol and minoxidil have both been discontinued. Will follow up with [facility] and will have reassessment of his ejection fraction in the near future. 2. Severe mitral valve regurgitation. The patient has been seen in consultation by Dr. Olman Rogel for mitral valve repair and at this time we are recommending that the patient optimize his congestive heart failure and reassess his mitral valve velocities prior to considering surgery. The patient will be seen at [facility] for reconsideration of this issue. 3. End-stage renal disease. Is most likely exacerbating patient's blood pressure and symptoms of congestive heart failure. He was seen in consultation by Nephrology and patient had aggressive volume removal, as much as he was able to symptomatically tolerate. He will continue on his outpatient Saturday dialysis and we recommend close weight monitoring. We also recommended 1.5-2.0 daily intake restriction, as the patient had been otherwise drinking between 2-4 L of fluid per day 4. Hypertensive urgency. Blood pressure medications were adjusted as outlined above. 5. Anemia of chronic kidney disease. Patient's hemoglobin level was between 7 and 8, he will receive erythropoietin on his usual schedule. 6. Acute hyperkalemia. Secondary to end-stage renal disease. This was dialyzed off. 7. Chronic headache. Patient has chronic headaches associated with hemodialysis. Has been initiated on Percocet in the outpatient setting and although he believes this has been helpful, I believe that this will cause long- term issues for the patient including dependency. I recommended a trial of 25 mg of Topamax, provided him with a script. 8. Suspect major depressive disorder. Evidenced by depressed mood times 12 months, daily crying, loss of pleasure of all activities, feeling of hopelessness, patient would like to initiate medication at this time, recommend low-dose sertraline 12.5 mg daily, to be up titrated in the outpatient setting as tolerates. The patient reports that he will establish care with a primary psychiatry provider through his dialysis center. DISCHARGE MEDICATIONS: Please see official discharge medication reconciliation sheet in chart , carvedilol 6.25 twice daily, hydralazine 25 4 times daily, isosorbide mononitrate 30 mg daily, amlodipine 5 mg daily, Lasix 80 mg twice daily, sertraline 12.5 mg daily, Topamax 25 mg nightly DISCHARGE INSTRUCTIONS: Please go to Saturday dialysis, follow fluid restrictions, failure medications year medication assistance program. TIME SPENT: Greater than 30 minutes were spent on direct patient care, as well as discharge planning and preparation.
== END 2017-05-06 15:46 | disposition home or self-care (01) | DRG 286 ==
LOC: OBSVTOIN 14:43 → F2W 16:30
PROVIDERS: ADMIT Internal Medicine; ATTEND Internal Medicine
PROC: B2111ZZ Fluoroscopy of Multiple Coronary Arteries using Low Osmolar Contrast (ICD-10-PCS; principal; 2017-05-04 11:32)
PROC: B2151ZZ Fluoroscopy of Left Heart using Low Osmolar Contrast (ICD-10-PCS; principal; 2017-05-04 11:32)
PROC: 4A023N7 Measurement of Cardiac Sampling and Pressure, Left Heart, Percutaneous Approach (ICD-10-PCS; principal; 2017-05-04 11:32)
PROC: 5A1D60Z (ICD-10-PCS; principal; 2017-05-04 11:32)
DX: I11.0 Hypertensive heart disease with heart failure (principal); I50.43 Acute on chronic combined systolic (congestive) and diastolic (congestive) heart failure; I16.0 Hypertensive urgency; N18.6 End stage renal disease; E87.5 Hyperkalemia; I34.0 Nonrheumatic mitral (valve) insufficiency; I42.0 Dilated cardiomyopathy; R51 Headache; D63.1 Anemia in chronic kidney disease; F17.210 Nicotine dependence, cigarettes, uncomplicated; Q60.0 Renal agenesis, unilateral; Z99.2 Dependence on renal dialysis; Z79.4 Long term (current) use of insulin
CPT/HCPCS: 96374; A9540; C1760; J1170; J1644; J1940; J2060; J2250; J2405; J2765; J3010; Q9967

== ENCOUNTER 2017-06-05 11:38 | Emergency (ER) | payer OTHER, MEDICAID ==
[2017-06-05 11:45] VITALS: RESP 18
--- NOTE | 2017-06-05 12:38 | EDPHY ---
General Narrative: CHIEF COMPLAINT: Dental pain HISTORY OF PRESENT ILLNESS: Patient complains of dental pain for the past 3-4 days. This is severe pain. Constant duration. Worsening throughout the last few days. Located in all 4 areas of molars. No trismus. No nausea or vomiting. No headache. No neck pain or stiffness. He does have elevated blood pressure but he did go to dialysis today and he took the last of his blood pressure medication. His pharmacy is sending refill request to his prescribing taper and floater. He has no chest pain. No headache. No other associated complaints or modifying factors. REVIEW OF SYSTEMS: Ten systems reviewed and are negative unless otherwise noted in the HPI PCP: Esthetician FacialistDr. Rawls SPECIALISTS: Dr. Rawls PAST MEDICAL HISTORY: CKD on dialysis for 4 years, hypertension, congenital solitary kidney FAMILY HISTORY: Noncontributory EXAMINATION General Appearance: Alert, no distress Head: normocephalic, atraumatic Eyes: Pupils equal and round, no conjunctival pallor or injection ENT, Mouth: Mucous membranes moist. Uvula midline. There are multiple areas of dental caries in the upper and lower molars. No pulpitis or palpable abscess. No trismus. No abnormality of the floor of the mouth. Neck: Normal inspection, supple, non-tender. Midline trachea Respiratory: No retractions or distress Cardiovascular: Regular rate. Pulses intact distally Neurological: A&O, nonfocal, normal gait Skin: Warm and dry, no rash. No petechiae or purpura. Skin tone consistent with dialysis patient Extremities: Nontender, no pedal edema Psychiatric: Mood and affect normal DIFFERENTIAL DIAGNOSES: Including but not limited to dental pain, dental christine, dental abscess, Jere' s angina, hypertension, CKD MDM: 12:30 p.m. Dental pain of several days duration. He has multiple areas of dental caries in the upper and lower teeth. No abscess. No pulpitis. No lesions. No trismus. He does have hypertension, for which she takes metoprolol and amlodipine. He took his last dose of these this morning. The pharmacist is attempting to send refill request to his prescribing physician. I contacted dental aid, and they already have an appointment for him at 2:00 p.m. today. I asked him about this and he says that he told the outreach and education social worker at his dialysis this morning. She has made the appointment. He would like to go and keep this appointment here in [place]. 12:45 p.m. I discussed this with Dr. Moyer, and she agrees the patient is stable for discharge. She would like him to be discharged home with 1 additional dose of his Norvasc here. Additionally I will give him 1 dose of oral pain medication. I would like him to follow up with his taper and floater to discuss his hypertension and possible medication adjustment. He is comfortable this plan. He is to return to ER for any headache, visual changes, chest pain of any kind. - History Smoking Status: Current every day smoker - Objective Vital Signs: Initial Vital Signs Temperature (C) 99.3 F 06/05/17 11:42 Heart Rate 86 06/05/17 11:42 Respiratory Rate 18 06/05/17 11:42 Blood Pressure 185/116 H 06/05/17 11:42 O2 Sat (%) 95 06/05/17 11:42 O2 Delivery Mode Room Air Allergies/Adverse Reactions: No Known Allergies Allergy (Verified 06/05/17 11:41) Home Medications: Medication Instructions Recorded NK [No Known Home Meds] 06/05/17 Medications Given: Discontinued Medications Amlodipine Besylate (Norvasc) 2.5 mg PO EDNOW ONE Stop: 06/05/17 12:41 Last Admin: 06/05/17 12:54 Dose: 2.5 mg Oxycodone/Acetaminophen (Percocet 5/325) 1 tab PO EDNOW ONE Stop: 06/05/17 12:41 Last Admin: 06/05/17 12:54 Dose: 1 tab Departure - Departure Disposition: Home, Routine, Self-Care Clinical Impression: Pain, dental, Chronic kidney disease on chronic dialysis Hypertension Qualifiers: Hypertension type: unspecified Qualified Code(s): I10 - Essential (primary) hypertension Condition: Good Instructions: Dental Caries (ED), Hypertension (ED), Toothache (ED) Additional Instructions: 1. Follow up with your dental aid appointment at 2:00 p.m. today 2. Follow up with Nephrology regarding her blood pressure Referrals: NONE *PRIMARY CARE P,. [Primary Care Provider] - As per Instructions [facility] [Outside] - As per Instructions Deep Rawls MD [Medical Doctor] - As per Instructions
[2017-06-05] MEDS ORDERED: OXYCODONE/APAP 5/325 TAB PO ONE (12:40)
[2017-06-05] MEDS ORDERED: amLODIPine BESYLATE 5 MG TAB PO ONE (12:40)
[2017-06-05 12:56] VITALS: BP 168/110; PULSE 132; TEMP 98.1; O2SAT 94
== END 2017-06-05 12:56 | disposition home or self-care (01) ==
DX: K08.89 Other specified disorders of teeth and supporting structures (principal); I12.0 Hypertensive chronic kidney disease with stage 5 chronic kidney disease or end stage renal disease; N18.6 End stage renal disease; F17.200 Nicotine dependence, unspecified, uncomplicated; Z99.2 Dependence on renal dialysis

== ENCOUNTER 2017-06-21 06:18 | Inpatient (IN) | payer OTHER, MEDICAID ==
--- NOTE | 2017-06-21 06:42 | CPEKG ---
Heart Rate: 107 RR Interval: 561 P-R Interval: 128 QRSD Interval: 82 QT Interval: 348 QTC Interval: 465 P [place]: 72 QRS [place]: 27 T Wave [place]: 92 EKG Severity - ABNORMAL ECG - EKG Impression: SINUS TACHYCARDIA EKG Impression: NONSPECIFIC T ABNORMALITIES, LATERAL LEADS Electronically Signed By: Bridger Napoles 21-Jun-2017 07:18:10
[2017-06-21 06:49] LABS: % IMMATURE GRANULYOCYTES 0.5 % (0.0-1.1); ABSOLUTE IMMATURE GRANULOCYTES 0.05 10^3/uL (0.00-0.10); ADD DIFF? NO; ADD MORPH? NO; ADD SCAN? NO; ATYPICAL LYMPHOCYTE FLAG 0 (0-99); FRAGMENT RBC FLAG 0 (0-99); HEMATOCRIT 24.9 % (40.0-51.0); HEMOGLOBIN 8.4 g/dL (13.7-17.5); LEFT SHIFT FLG 0 (0-99); LIPEMIA HEMOLYSIS FLAG 80 (0-99); MEAN CELL HEMOGLOBIN CONCENTR. 33.7 g/dL (32.4-36.7); MEAN CELL VOLUME 88.9 fL (81.5-99.8); MEAN PLATELET VOLUME 8.8 fL (8.7-11.7); PLATELET CLUMPS FLAG 10 (0-99); PLATELET COUNT 198 10^3/uL (150-400); RED CELL DISTRIBUTION WIDTH 13.6 % (11.5-15.2)
--- NOTE | 2017-06-21 07:01 | EDPHY ---
H & P Stated Complaint: c/o sob/cough, recent dx of chf Time Seen by Provider: 06/21/17 06:32 HPI/ROS: Chief Complaint: Short of breath HPI: 26-year-old male with a history of end-stage renal disease on hemodialysis Saturday. This is secondary to a congenital single kidney which she has chronically decreased in function. Patient was also recently admitted at the end of April and congestive heart failure at that time was diagnosed with mitral regurgitation and cardiomyopathy. He is noted to have an ejection fraction about 30% on catheterization. That was is thought to be secondary both to chronic hypertension from his kidney disease and from a possible viral etiology. Patient last was dialyzed 2 days ago and is due for his dialysis later today. Patient states that this morning he is feeling increasingly short of breath. He has been feeling this way last couple days and is similar to when he presented with his heart failure in past. He does make urine. He has been compliant with medications. He took all of his medications this morning when he woke up, approximately 5:45 this morning. He has not had any chest pain. No nausea or vomiting. No fevers or chills. ROS: 10 point Review of Systems is negative except as noted in the HPI. PMH: End-stage renal disease, cardiomyopathy, mitral regurgitation Social History: Positive smoking, denies alcohol, denies other drug use Family History: non-contributory Physical Exam: Gen: Awake, Alert, uncomfortable appearing HEENT: Nose: no rhinorrhea Eyes: PERRLA, EOMI Mouth: Moist mucosa Neck: Supple, no JVD Chest: nontender, lungs clear to auscultation Heart: Tachycardic, fixed split S1, S2, 2 on 6 systolic murmur Abd: Soft, non-tender, no guarding Back: no CVA tenderness, no midline tenderness Ext: no edema, non-tender Skin: no rash Neuro: CN II-XII intact, Sensation grossly intact, Strength 5/5 in bilateral upper and lower extremities - Medical/Surgical History Hx Asthma: No Hx Chronic Respiratory Disease: No Hx Diabetes: No Hx Cardiac Disease: Yes Hx Renal Disease: Yes Hx Cirrhosis: No Hx Alcoholism: No Hx HIV/AIDS: No Hx Splenectomy or Spleen Trauma: No Other PMH: PMHx: dialysis for renal dysfunction, HTN, dental caries, chf. PSHx : gallbladder, fistula, other dialysis surgery - Social History Smoking Status: Current every day smoker Constitutional: Initial Vital Signs Temperature (C) 37.1 C 06/21/17 06:21 Heart Rate 121 H 06/21/17 06:21 Respiratory Rate 18 06/21/17 06:21 Blood Pressure 194/132 H 06/21/17 06:21 O2 Sat (%) 93 06/21/17 06:21 O2 Delivery Mode Room Air Allergies/Adverse Reactions: No Known Allergies Allergy (Verified 06/21/17 06:24) Home Medications: Medication Instructions Recorded Bp Med 06/21/17 Diuretic 06/21/17 Medical Decision Making - Diagnostics Imaging Results: Chest x-ray shows congestive heart failure with cephalization per my interpretation Imaging: I viewed and interpreted images myself ED Course/Re-evaluation: 26-year-old male with shortness of breath. He states chest x-ray shows fluid overload. Patient arrived tachycardic and hypertensive. He has a known cardiomyopathy with an ejection fraction of 30% and his presentation is atypical for him. He is compliant with been medications. I have discussed with Dr. Andres, hospitalist. They will plan to admit to the floor to arrange for inpatient dialysis here and further evaluation of his cardiac functioning. - Data Points Laboratory Results: Laboratory Results 06/21/17 06:42 06/21/17 06/21/17 06:42 06:42 WBC 11.10 10^3/uL H 10^3/uL (3.80-9.50) RBC 2.80 10^6/uL L 10^6/uL (4.40-6.38) Hgb 8.4 g/dL L g/dL (13.7-17.5) Hct 24.9 % L % (40.0-51.0) MCV 88.9 fL fL (81.5-99.8) MCH 30.0 pg pg (27.9-34.1) MCHC 33.7 g/dL g/dL (32.4-36.7) RDW 13.6 % % (11.5-15.2) Plt Count 198 10^3/uL 10^3/uL (150-400) MPV 8.8 fL fL (8.7-11.7) Neut % (Auto) 83.0 % H % (39.3-74.2) Lymph % (Auto) 10.6 % L % (15.0-45.0) [place] % (Auto) 4.0 % L % (4.5-13.0) Eos % (Auto) 1.4 % % (0.6-7.6) Baso % (Auto) 0.5 % % (0.3-1.7) Nucleat RBC Rel Count 0.0 % % (0.0-0.2) Absolute Neuts (auto) 9.23 10^3/uL H 10^3/uL (1.70-6.50) Absolute Lymphs (auto) 1.18 10^3/uL 10^3/uL (1.00-3.00) Absolute Monos (auto) 0.44 10^3/uL 10^3/uL (0.30-0.80) Absolute Eos (auto) 0.15 10^3/uL 10^3/uL (0.03-0.40) Absolute Basos (auto) 0.05 10^3/uL 10^3/uL (0.02-0.10) Absolute Nucleated RBC 0.00 10^3/uL 10^3/uL (0-0.01) Immature Gran % 0.5 % % (0.0-1.1) Immature Gran # 0.05 10^3/uL 10^3/uL (0.00-0.10) Sodium Pending Potassium Pending Chloride Pending Carbon Dioxide Pending Anion Gap Pending BUN Pending Creatinine Pending Estimated GFR Pending Glucose Pending Calcium Pending Departure - Departure Disposition: [facility] In[facility] Acute Clinical Impression: Admission for dialysis, Pulmonary edema Condition: Fair Referrals: NONE *PRIMARY CARE P,. [Primary Care Provider] - As per Instructions
[2017-06-21] MEDS ORDERED: ONDANSETRON 4 MG/2 ML VIAL IVP PRN (07:06)
[2017-06-21] MEDS ORDERED: ONDANSETRON DISINTEGRATING 4 MG TAB PO PRN (07:06)
--- NOTE | 2017-06-21 07:28 | PDGENHP ---
History and Physical - Chief Complaint Dyspnea on Exertion - History of Present Illness 26 yo M w/ ESRD and CHF presents with GAMBINO x2 days. Patient was hospitalized in April due to decompensated heart failure with similar symptoms. On this occasion, he notes severe GAMBINO for 2 days despite adherence to medication regimen and regular M/W/F HD. He denies symptoms of any recent illness or other complication factors. He continues to make what he describes as a normal volume of urine. He takes furosemide 80 mg PO BID and denies any swelling. He is breathing comfortably at rest but becomes very dyspneic and tachycardic with minimal activity. He reports having taken his home medications this morning. History Information - Allergies/Home Medication List Allergies/Adverse Reactions: No Known Allergies Allergy (Verified 06/21/17 06:24) Home Medications: Bp Med 06/21/17 [Last Taken Unknown] Diuretic 06/21/17 [Last Taken Unknown] I have personally reviewed and updated: family history, medical history - Past Medical History CHF Additional medical history: ESRD secondary to solitary kidney, on HD in [facility] - Surgical History Additional surgical history: LUE AVF creation - Family History Positive for: non-pertinent Additional family history: No family history of end-stage renal disease - Social History Smoking Status: Current every day smoker Additional social history: Reports he is currently living with his mother in [place], does not have any transportation beyond the local bus system Review of Systems Review of Systems: ROS: 10pt was reviewed & negative except for what was stated in HPI & below Physical Exam Physical Exam: Temp Pulse Resp BP Pulse Ox 37.1 C 121 H 18 194/132 H 93 06/21/17 06:21 06/21/17 06:21 06/21/17 06:21 06/21/17 06:21 06/21/17 06:21 Constitutional: no apparent distress Eyes: PERRL, EOMI Ears, Nose, Mouth, Throat: moist mucous membranes, no oral mucosal ulcers Cardiovascular: regular rate and rhythym, systolic murmur, tachycardia, No edema Respiratory: no respiratory distress, clear to auscultation Gastrointestinal: normoactive bowel sounds, soft, non-tender abdomen Skin: warm, normal color Musculoskeletal: full muscle strength, no muscle tenderness Neurologic: AAOx3, CN II-XII Intact Psychiatric: interacting appropriately, not anxious Lab Data & Imaging Review 06/21/17 06:42 06/21/17 06:42 WBC 11.10 10^3/uL (3.80-9.50) H 06/21/17 06:42 RBC 2.80 10^6/uL (4.40-6.38) L 06/21/17 06:42 Hgb 8.4 g/dL (13.7-17.5) L 06/21/17 06:42 Hct 24.9 % (40.0-51.0) L 06/21/17 06:42 MCV 88.9 fL (81.5-99.8) 06/21/17 06:42 MCH 30.0 pg (27.9-34.1) 06/21/17 06:42 MCHC 33.7 g/dL (32.4-36.7) 06/21/17 06:42 RDW 13.6 % (11.5-15.2) 06/21/17 06:42 Plt Count 198 10^3/uL (150-400) 06/21/17 06:42 MPV 8.8 fL (8.7-11.7) 06/21/17 06:42 Neut % (Auto) 83.0 % (39.3-74.2) H 06/21/17 06:42 Lymph % (Auto) 10.6 % (15.0-45.0) L 06/21/17 06:42 [place] % (Auto) 4.0 % (4.5-13.0) L 06/21/17 06:42 Eos % (Auto) 1.4 % (0.6-7.6) 06/21/17 06:42 Baso % (Auto) 0.5 % (0.3-1.7) 06/21/17 06:42 Nucleat RBC Rel Count 0.0 % (0.0-0.2) 06/21/17 06:42 Absolute Neuts (auto) 9.23 10^3/uL (1.70-6.50) H 06/21/17 06:42 Absolute Lymphs (auto) 1.18 10^3/uL (1.00-3.00) 06/21/17 06:42 Absolute Monos (auto) 0.44 10^3/uL (0.30-0.80) 06/21/17 06:42 Absolute Eos (auto) 0.15 10^3/uL (0.03-0.40) 06/21/17 06:42 Absolute Basos (auto) 0.05 10^3/uL (0.02-0.10) 06/21/17 06:42 Absolute Nucleated RBC 0.00 10^3/uL (0-0.01) 06/21/17 06:42 Immature Gran % 0.5 % (0.0-1.1) 06/21/17 06:42 Immature Gran # 0.05 10^3/uL (0.00-0.10) 06/21/17 06:42 Imaging Review: CXR with vascular congestion, awaiting formal read. Visualized and Interpreted EKG results: Yes EKG Interpretation: Positive for: other (Sinus tachycardia) Assessment & Plan Assessment: 26 yo M w/ CHF and ESRD presenting with dyspnea on exertion. Plan: 1. Dyspnea on exertion - Likely multifactorial; symptoms concerning for CHF exacerbation but no evidence of significant volume overload on exam. He does have some vascular congestion on CXR and I wonder if some of this is related to mitral valve pathology as well in setting of poorly controlled hypertension. - Furosemide 80 mg IV x1 now - Renal consult for HD today - Cardiology consult for further evaluation - Will not repeat TTE noting this was done last month, but this may be helpful if diagnostic uncertainty remains 2. ESRD - 2/2 hx of congenital solitary kidney. He receives HD M/W/F. K 5.7 on admission. - Will consult renal for HD today 3. Systolic and Diastolic CHF - LVEF 45% on recent TTE with severe MR and biatrial dilation. He was started on Coreg, Hydralazine, ISMN, and amlodipine last month, which he is compliant with. He is also on furosemide 80 mg PO BID and reports making "normal" amount of urine. - IV Lasix as above - Continue other home meds for now, needs reconciliation - Cardiology consult 4. HTN - SBP 190's on arrival in the setting of acute distress. He took his amlodipine, hydralazine, and Coreg this morning so will monitor before giving additional medication aside from IV lasix and arranging for HD. 5. Severe MR - I suspect this is contributing to overall presentation. 6. Anemia - Stable from prior values, likely 2/2 CKD. Diet - Regular Code - Full Ppx - Low risk Dispo - Admit to observation status
[2017-06-21 07:29] LABS: ANION GAP 17 mEq/L (8-16); CALCIUM 9.4 mg/dL (8.5-10.4); CARBON DIOXIDE 21 mEq/l (22-31); CHLORIDE 101 mEq/L (97-110); GLOMERULAR FILTRATION RATE 4; GLUCOSE 96 mg/dL (70-100); POTASSIUM 5.7 mEq/L (3.5-5.2); SODIUM 139 mEq/L (134-144)
[2017-06-21] MEDS ORDERED: FUROSEMIDE 80 MG in D5W 50 ML IV ONE (07:34)
[2017-06-21 07:41] LABS: CREATININE 13.9 mg/dL (0.7-1.3)
[2017-06-21 08:07] VITALS: TEMP 98.7
[2017-06-21] MEDS: ACETAMINOPHEN 325 MG TAB PO PRN ×2 (08:07→11:58)
[2017-06-21] MEDS ORDERED: amLODIPine BESYLATE 5 MG TAB PO SCH (09:30)
[2017-06-21] MEDS ORDERED: hydrALAZINE 25 MG TAB PO SCH ×2 (09:45→16:00)
[2017-06-21] MEDS ORDERED: hydrALAZINE 20 MG/ML VIAL IVP PRN (10:32)
[2017-06-21] MEDS ORDERED: METOPROLOL TARTRATE 5 MG/5 ML INJ IVP PRN (10:33)
[2017-06-21 11:13] VITALS: RESP 11
[2017-06-21] MEDS: oxyCODONE IR 5 MG TAB PO PRN ×2 (12:27→16:18)
[2017-06-21 12:30] VITALS: BP 173/125; PULSE 93; O2SAT 98
--- NOTE | 2017-06-21 13:27 | SOAPPROG ---
SOAP Progress Note Assessment/Plan: Patient seen and examined. Records reviewed Consult Dictated Outpatient records from the [facility] Dialysis Unit requested, i.e. Problem List, Medication List Plan for Hd today and tomorrow Follow response to BP medications Chronic prescription opioid use Tobacco use AVF looks good CXR with Fluid Overload/CHF. I suspect his HTN is driven by his fluid overload, which makes him refractory to the effects of his anti-hypertensives. This issue is how to effectively get him euvolemic and keep him that way. Will try gradual UF to avoid side effects with fluid shifts that could precipitate headache, malaise and other symptoms. 06/21/17 13:15 Objective: Vital Signs Temp Pulse Resp BP Pulse Ox 37.1 C 93 11 L 173/125 H 98 06/21/17 11:07 06/21/17 12:28 06/21/17 11:07 06/21/17 12:28 06/21/17 12:28 ICD10 Worksheet Patient Problems: Problems Problem Status Onset Admission for dialysis Acute Pulmonary edema Acute CKD (chronic kidney disease) stage V requiring chronic dialysis Acute ESRD (end stage renal disease) Acute Hyperkalemia Acute Hypoxemia Acute Left ankle sprain Acute Shortness of breath Acute
[2017-06-21] MEDS ORDERED: NICOTINE 21 MG/24 HR PATCH TD SCH (14:00)
[2017-06-21] MEDS ORDERED: LORazepam 2 MG/ML INJ IVP PRN (14:19)
--- NOTE | 2017-06-21 14:26 | SOAPPROG ---
SOAP Progress Note Assessment/Plan: Stable at onset of dialysis patient states he needs to leave the hospital to be able to be in [place] by 5: 30 He would be agreeable to coming back in to the hospital for additional therapy. We discussed the effect that his volume overload is having on his BP and the effectiveness of his medications 06/21/17 14:20 Objective: Vital Signs Temp Pulse Resp BP Pulse Ox 37.1 C 93 11 L 173/125 H 98 06/21/17 11:07 06/21/17 12:28 06/21/17 11:07 06/21/17 12:28 06/21/17 12:28 ICD10 Worksheet Patient Problems: Problems Problem Status Onset Admission for dialysis Acute Pulmonary edema Acute CKD (chronic kidney disease) stage V requiring chronic dialysis Acute ESRD (end stage renal disease) Acute Hyperkalemia Acute Hypoxemia Acute Left ankle sprain Acute Shortness of breath Acute
--- NOTE | 2017-06-21 16:14 | ASMTCMCOM ---
CM Note CM Note Notes: Pt. is a 26-year-old disabled man admitted w/ dyspnea on extertion. Hx. end stage renal disease, CHF, and anxiety. Pt. receives outpatient dialysis at [facility]. Pt. states he wants to leave AMA after his acute care dialysis session today. RN and fundraising specialist asked Chiarar to meet with him. Chiarar met w/ Pt. in dialysis room. Pt. states he has to leave to get his belongings from a storage unit in [place]. States he will "lose everything" if he doesn't get his belongings. Pt. has endured recent losses and states he is very anxious. Also states his Zoloft that was prescribed at a previous [facility] admission "only seems to make me cry". Would like reassessment of his psychotropic medications. Pt. states he was recently . States he "lost his " and she has their three children, ages 4, 5, and 6 living in [place]. Pt. states he will "get the children in the summer". Pt. states he lives with his mother Polina in [place]. Melisa provided Pt. w/ resources at his request. 1) List of PCPs in [facility] system, 2) List of counseling programs that take Medicaid or are sliding scale. Anticipate Pt. leaving AMA and then readmitting through [facility]. Date Signed: 06/21/2017 04:13 PM Electronically Signed By:Sharon Hemphill LCSW
--- NOTE | 2017-06-21 16:51 | PDMN ---
Medical Necessity Medical necessity: Pt meets IP criteria per MD; los >2 mn for eval/tx of dyspnea on exertion likely multifactorial; symptoms concerning for CHF, htn, ESRD; hx end stage renal disease; per H&P & order 06/21/17
--- NOTE | 2017-06-21 17:48 | HOSPPROG ---
Hospitalist Progress Note Assessment/Plan: * ESRD with volume overload -d/w Dr. Florez - suspect his dry weight is lower than stated -plan for daily dialysis to determine new dry weight * Acute on chronic systolic CHF - likely cardiomyopathy due to chronic volume overload * HTN - uncontrolled -prn IV meds with titration of PO -HD and removing volume will help * MR -need to reassess when more euvolemic Patient plans to leave AMA this afternoon, but plans to return to ER after he cleans out his storage space. Subjective: no new complaints. Plans to leave AMA this afternoon to clean out storage space Objective: Vital Signs Temp Pulse Resp BP Pulse Ox 37.1 C 93 11 L 173/125 H 98 06/21/17 11:07 06/21/17 12:28 06/21/17 11:07 06/21/17 12:28 06/21/17 12:28 Case d/w Dr. Florez cardiology and [facility] cardiology CXR viewed, my personal interpretation is - pulmonary edema Laboratory Tests 06/21/17 06/21/17 06:42 06:55 Sodium 139 Potassium 5.7 H Chloride 101 Carbon Dioxide 21 L Anion Gap 17 H BUN 58 H Creatinine 13.9 H* NT-Pro-B Natriuret Pep 97041 H - Physical Exam Constitutional: no apparent distress, appears nourished, not in pain Cardiovascular: regular rate and rhythym, no murmur, rub, or gallop Respiratory: no respiratory distress, no rales or rhonchi, inspiratory crackles , No rhonchi Gastrointestinal: normoactive bowel sounds, soft, non-tender abdomen, no palpable masses Skin: no rashes or abrasions, no fluctuance, no induration Neurologic: AAOx3, sensation intact bilaterally Psychiatric: interacting appropriately, not anxious, not encephalopathic, thought process linear ICD10 Worksheet Patient Problems: Problems Problem Status Onset Admission for dialysis Acute CKD (chronic kidney disease) stage V requiring chronic dialysis Acute ESRD (end stage renal disease) Acute Hyperkalemia Acute Hypoxemia Acute Left ankle sprain Acute Pulmonary edema Acute Shortness of breath Acute
[2017-06-21] MEDS ORDERED: CARVEDILOL 6.25 MG TAB PO SCH ×2 (18:00)
--- NOTE | 2017-06-21 18:13 | GCON ---
[f rep st] CONSULTATION REASON FOR CONSULTATION: 1. End-stage renal disease, in need of dialysis. 2. Hyperkalemia. REASON FOR ADMISSION: Shortness of breath, fluid overload, hypertension. ASSESSMENT: 1. End-stage renal disease, in need of dialysis. 2. Hyperkalemia. 3. Fluid overload. 4. Cardiomyopathy with mitral regurgitation and decreased left ventricular ejection fraction of 45%. 5. Hypertension. 6. Anemia. 7. Secondary hyperparathyroidism. 8. Depression. RECOMMENDATION: 1. Plan for dialysis today and daily. 2. Gentle ultrafiltration to try and slowly correct the patient's volume status. 3. Continue present management with antihypertensive medications. 4. Evaluate for precipitants of his dialysis-related headaches. 5. Nicotine patch, as the patient feels he would benefit from that due to his smoking history. 6. Avoid IVs, blood pressures and blood draws in the patient's left arm. 7. Review outpatient medications and follow response to dialysis and blood pressure medications. HISTORY: The patient is a 26-year-old male I have been asked to consult on by Dr. Elizabeth Rincon due to his end-stage renal disease. He presented to the emergency room with shortness of breath. He typically dialyzes Saturday, Saturday , Saturday at the [facility]. Evidently, he does come regularly to treatment but he typically cuts his treatment time 2-3 times a week at least 1 hour early. He feels he is intolerant to dialysis and will leave because of symptoms of malaise as well as headache. Medications have been tried to prevent this dialysis-associated headache. He has recently been put on high-dose Percocet in attempt to prevent and/or alleviate these headache symptoms. The patient has end-stage renal disease due to congenital abnormalities. He states he was born with a solitary kidney and eventually reached end-stage renal disease, approximately 4 years ago. His initial plan was to undergo peritoneal dialysis. Because of psychosocial issues with marital problems with his spouse, he never initiated peritoneal dialysis, but he had previously had a peritoneal dialysis catheter placed. He currently dialyzes through a left forearm AV fistula on Saturday, Saturday, Saturday at the [facility] unit under the care of Dr. Rawls. He moved out to [place] about 6-7 months ago. He was initially down in [place] and either was or became homeless. Approximately in January he moved up to [place] to live with his mother. With this social support from his mother he has been more stable and able to come to dialysis more regularly. Evidently, prior to that he had been to several units sometimes only showing up for 1 treatment before moving on. As described, he has had trouble with compliance with his dialysis treatments with both coming to treatments and remaining for his full treatment in the past. It sounds like although he is coming to treatments he cuts them quite short. It sounds like he typically dialyzes much less than 3 hours 3 times a week. It is less clear whether he is able to take his medications regularly. It sounds like his medications have been adjusted by Dr. Rawls but he remains hypertensive. Blood pressures here today have been documented as high as 194/ 132. In spite of chest x-ray, appearance of fluid overload, he is saturating 93 % on room air. He had an echocardiogram done on 04/27/2017 that revealed mild concentric LVH with an ejection fraction of 45%, evidence of a moderate pleural effusion during this study. His dilated inferior vena cava suggests increased venous pressures. He has pulmonary hypertension on echo of 54 mmHg. He had a cardiac catheterization under the care of Dr. Lieberman on 05/04/2017 which showed a dilated cardiomyopathy with severely depressed ventricular systolic function measured at 30% to 35% at that time. He had at least grade 2 mitral regurgitation with evidence of left atrial enlargement suggestive of a chronic problem there. There was evidence of non critical coronary artery disease with luminal irregularities present without evidence of any flow limiting disease. Patient has history of hypertension, hyperparathyroidism, depression, anemia, and hyperkalemia. He evidently felt more depressed on a recent trial of an antidepressant and therefore discontinued it. SURGICAL HISTORY: Cholecystectomy, AV fistula construction and peritoneal dialysis catheter placement. OUTPATIENT MEDICATIONS: Per the [facility] chart are amlodipine 5 mg daily, carvedilol 6.25 mg twice daily, furosemide 80 mg twice daily, hydralazine 25 mg 4 times daily, isosorbide mononitrate 30 mg daily, minoxidil 5 mg twice daily, Percocet 10/325 one to two tabs with dialysis, sertraline 12.5 mg at bedtime, topiramate 25 mg at bedtime, Tums 2 with meals and albuterol inhaler. Medications based on his admission medication snap shot include hydralazine 50 mg daily, amlodipine 5 mg daily, carvedilol 6.25 mg twice daily, Imdur 30 mg daily, furosemide 80 mg twice daily and topiramate 25 mg daily. ALLERGIES: None. FAMILY AND SOCIAL HISTORY: He was born in [place]. He states he was born 4 months early. He was born with congenital kidney disease. He primarily grew up near [place], [place], in the [facility]. It sounds like he reached end- stage renal disease when he was living in [place] approximately 4 years ago. He was planning on pursuing peritoneal dialysis. He then had marital difficulties. It sounds like he and his spouse . With this, he left [place] and moved to [place]. He initially was living down in [place]. He states he had been noncompliant and homeless during a period of time. He moved up to [place] about 6 months ago and started living with his mother. He has been dialyzing at the [facility] since January. With that, he has been coming more regularly to dialysis but, as described, he has had issues with effectively following his prescribed therapies. He smokes a half pack per day. He also uses marijuana. Nondrinker. Denies any other drug use. He has 3 kids aged 3, 4, and 5. 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 With this, he was able to get disability. He has not been able to work in [place] recently. 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 REVIEW OF SYSTEMS: Performed. A 10-point review of systems was completed and is unremarkable except for that included in the history of present illness. PHYSICAL EXAMINATION: VITAL SIGNS: His blood pressure is 173/125. He is afebrile at 37.1. Tachycardic with heart rates in the low 100s, now down to 93. Respirations 11. Saturating 98% on room air. Admit weight is 68 kg. His dry weight based on the dialysis unit records is 68.8 kg. GENERAL: Thin white male, in no apparent distress, sitting up in bed. HEENT: Atraumatic, normocephalic. NECK: Unremarkable. HEART: Tachycardic with a 2/6 systolic murmur. LUNGS: Remarkably clear with no crackles, no wheezes. Breath sounds appear to be normal. ABDOMEN: Exam is benign. No organomegaly, no hepatosplenomegaly. He has some minor scars from his cholecystectomy and his peritoneal dialysis catheter placement but is otherwise unremarkable. BACK: Unremarkable. SKIN: Shows tattoos being present. LOWER EXTREMITIES: Without edema. NEUROMUSCULAR: He is intact. HEENT: Unremarkable with pupils equal, round. Conjunctivae normal. LAB: Show a potassium of 5.7. Hematocrit 24.9. BNP of 79,700. ASSESSMENT: End-stage renal disease, in need of dialysis. His chest x-ray shows volume overload. He does not have much in the way of physical findings to suggest this volume overload, but it certainly is present. I think his volume overload is contributing to his refractory hypertension. The problem is how to effectively remove this fluid when he shortens treatments and has intermittent compliance with his therapy. If we are able to get the fluid off, the challenge will then be how to keep it off this young gentleman. Given his body weight of 68 kg, I would avoid ultrafiltration rates of more than 800 cc/hour. This could further compromise his cardiovascular status as fluid shifts greater than this have been associated with increased mortality. In addition, he has been completing treatment times much less than 3 hours. Treatment times less than 4 hours are associated with increased morbidity and mortality in dialysis patients. He currently is getting treated for his hypertension. I would continue these medications at the current doses with the understanding that he may remain refractory until we get his volume status down. I would like to see if we can perform this ultrafiltration gradually on a daily basis to attain a lower dry weight and better blood pressure. If he does become more responsive to his medications once his volume status is normalized, we may be able to refine his therapies to ease his compliance. Interestingly, the admission notes state he is taking hydralazine once a day. This is an ineffective frequency for any patient and he likely needs to be on it at least 3 times a day or 4 times a day as per his outpatient records. He is anemic. I suspect some of his anemia is dilutional in nature. I would not transfuse him at this time. He has hyperkalemia. We will treat that with dialysis. In the hospital, he should be on a potassium restriction. The patient would like a nicotine patch as he is a smoker and is concerned that he may suffer nicotine withdrawal. He denies any other drug use that is concerning for acute complications in the hospital. He has a left forearm arteriovenous fistula. Care should be taken to avoid IVs and blood pressures on that side as well as blood draws to avoid trauma to his access. Copy requested to: [facility] /[id number]/MODL MTDD
[2017-06-21] MEDS ORDERED: FUROSEMIDE 40 MG TAB PO SCH (21:00)
[2017-06-21] MEDS ORDERED: TOPIRAMATE 25 MG TAB PO SCH (21:00)
--- NOTE | 2017-06-21 22:29 | GCON ---
[f rep st] CONSULTATION CARDIOLOGY CONSULTATION DATE OF CONSULTATION: 06/21/2017 REFERRING PHYSICIAN: Navjot Villarreal MD INDICATION FOR CONSULTATION: Heart failure. HISTORY OF PRESENT ILLNESS: The patient is a pleasant 26-year-old gentleman well known to [facility] with multiple admissions for congestive heart failure over the las t several months. He has a known history of end-stage renal disease secondary to born with solitary kidney. He has known severe mitral regurgitation on echocardiogram in the past and poorly controlled hypertension. The patient had recently been hospitalized in the end of April with pulmonary edema. He has been admitted multiple times over the last 6 months. He presented yesterday with increasing shortness of breath, dyspnea on exertion, PND, and orthopnea. He was also found to be markedly hypertensive. Currently, at the time of my exam, he is undergoing hemodialysis. He is without complaint. PAST MEDICAL HISTORY: Includes hypertension secondary to solitary kidney, end-stage renal disease, s ystolic congestive heart failure with LVEF of 30% to 35% on left ventriculogram May 02, 2017, a nd severe mitral regurgitation. MEDICATIONS: On admission include hydralazine 25 mg p.o. daily, amlodipine 5 mg daily, isosorbide mo nonitrate 30 mg daily, Coreg 6.25 mg p.o. b.i.d., Lasix 80 mg b.i.d., and Topamax 25 mg daily. ALLERGIES: To medications none. SOCIAL HISTORY: He is a current smoker. He lives with his mother. PHYSICAL EXAMINATION: VITAL SIGNS: Blood pressure 173/125 (this is prior to dialysis), heart rate 9 3, oxygen saturation 98% on room air. GENERAL: He is awake, alert, oriented, and appropriate, in no apparent distress. NECK: There is no evidence of JVP or carotid bruits. LUNGS: Clear to ausculta tion bilaterally. CARDIAC: S1, S2. Regular. He has a 2/6 systolic murmur at the apex. There is n o evidence of cyanosis, clubbing, or edema. DATA: White blood cell count of 11.1, hemoglobin of 8.4, hematocrit of 24.9, platelet count 198. So dium 139, potassium 5.7, chloride 101, bicarb 21, BUN 58, creatinine 13.9. N-terminal proBNP 79,700. IMPRESSION: 1. Systolic congestive heart failure. 2. Severe mitral regurgitations. 3. Hypertensive urgency with known suboptimally controlled hypertension. 4. End-stage renal disease. On permanent hemodialysis. SUMMARY: The patient is a pleasant 26-year-old gentleman, who has had recurrent admissions over the last 6 months with hypertensive urgency, shortness of breath, dyspnea, and heart failure. He has und ergone workup, including left heart catheterization demonstrating minimal coronary artery disease wit h LVEF of 30% to 35% and at least 2+ mitral regurgitation on left heart catheterization April. He had been seen by Dr. Rogel in consultation for mitral valve replacement but was thought that i mproved blood pressure control was needed prior to considering surgery. His MR was thought to be fun ctional secondary to his underlying hypertensive heart disease. In the setting of recurrent hospitalizations for heart failure, BNP of 79,700, I do feel that reconsi deration for mitral valve replacement should be considered at this time. Another option would be con sideration for a mitral clip. He certainly needs to obtain better control of his blood pressure. He insists he has been compliant with medications. PLAN: 1. Increase amlodipine to 10 mg daily. 2. Increase Coreg to 12.5 mg p.o. b.i.d. 3. Continue hydralazine 25 mg p.o. t.i.d. 4. Continue isosorbide mononitrate 30 mg once daily. 5. Recommend surgical consultation with Dr. Smooth Farr for consideration of mitral valve repair uma mike replacement. 6. Recommend transesophageal echocardiogram to be performed tomorrow. Recommend patient remain n.p. o. after midnight. /[id number]/MODL
--- NOTE | 2017-06-21 22:29 | GDS ---
[f rep st] DISCHARGE SUMMARY Please note, this was an AMA discharge. The patient signed himself out, but we intended to keep him for further inpatient dialysis. DIAGNOSES: 1. End-stage renal disease, with pulmonary edema and volume overload. 2. Sdpot-fo-krprijj systolic congestive heart failure. 3. Uncontrolled hypertension, consistent with hypertensive urgency. 4. Mitral regurgitation. HISTORY: The patient is a 26-year-old male, with end-stage renal disease, who was born with a solita ry kidney and renal failure as a complication of being severely premature at , less than 30 week s. He is now with end-stage renal disease, on dialysis. He denies noncompliance, although we did se e some behaviors here that may suggest that is an ongoing issue. He presented with pulmonary edema a nd hyperkalemia. Nephrology was consulted. He did undergo acute inpatient hemodialysis. After dial ysis, he left AMA because he has a storage shed that he urgently needed to clean out or he would lose all this stuff. He does plan to return to the ER later today for further treatment, as he would lik e to follow through with his treatment plan of getting to a more euvolemic state. He does have known chronic systolic congestive heart failure, which Nephrology feels is likely due to his chronic volume overload. Cardiology was consulted, did plan on seeing him today prior to him le aving. He has severe hypertension, which is uncontrolled. He denies noncompliance with his usual me dications. Removing volume will help his blood pressures. Plan was to continue IV medications p.r.n. while we titrate his oral medications for better control. He also has known severe mitral regurgitation; however, per Nephrology this likely needs to be reass essed when he is more euvolemic. /[id number]/MODL
[2017-06-22] MEDS ORDERED: ISOSORBIDE MONONITRATE 30 MG TAB.SR PO SCH (09:00)
[2017-06-22] MEDS ORDERED: amLODIPine BESYLATE 5 MG TAB PO SCH (09:00)
[2017-06-22] MEDS ORDERED: hydrALAZINE 25 MG TAB PO SCH (09:00)
--- NOTE | 2017-06-22 17:20 | ASDISCHSUM ---
Discharge Information Plan Status:Home with No Needs Medically Cleared to Leave: Discharge Date:06/21/2017 04:52 PM CM D/C Disposition:Home, Routine, Self-Care ADT D/C Disposition:Against Medical Advice Projected Discharge Date:06/21/2017 04:52 PM Transportation at D/C:Self Discharge Delay Reason: Follow-Up Date:06/21/2017 04:52 PM Discharge Slot: Final Diagnosis:AMA Placement Information Patient Contact Information Contact Name:JEFFERY Relationship:Mother Address:[address] Work Phone: City:[facility] Phone: [facility]/Zip Code:[place] [address] Email: Financial Information Financial Class: Primary Plan Desc:MEDICARE OUTPATIENT Primary Plan Number:[id number] Secondary Plan Desc:MEDICAID HEALTH [facility] Secondary Plan Number:[id number] Assessment Information [facility] CM Progress Note CM Note CM Note Notes: Pt. is a 26-year-old disabled man admitted w/ dyspnea on extertion. Hx. end stage renal disease, CHF, and anxiety. Pt. receives outpatient dialysis at [facility]. Pt. states he wants to leave [place] after his acute care dialysis session today. RN and case hardener asked Melisa to meet with him. Melisa met w/ Pt. in dialysis room. Pt. states he has to leave to get his belongings from a storage unit in [place]. States he will "lose everything" if he doesn't get his belongings. Pt. has endured recent losses and states he is very anxious. Also states his Zoloft that was prescribed at a previous [facility] admission "only seems to make me cry". Would like reassessment of his psychotropic medications. Pt. states he was recently . States he "lost his " and she has their three children, ages 4, 5, and 6 living in [place]. Pt. states he will "get the children in the summer". Pt. states he lives with his mother Polina in [place]. Melisa provided Pt. w/ resources at his request. 1) List of PCPs in [facility] system, 2) List of counseling programs that take Medicaid or are sliding scale. Anticipate Pt. leaving AMA and then readmitting through [facility]. Date Signed: 06/21/2017 04:13 PM Electronically Signed By:Sharon Hmephill LCSW Intervention Information
== END 2017-06-21 16:52 | disposition left against medical advice (07) | DRG 291 ==
LOC: F3E 07:54 → OBSVTOIN 14:45
PROVIDERS: ADMIT Student in an Organized Health Care Education/Training Program; ATTEND Internal Medicine
PROC: 5A1D70Z Performance of Urinary Filtration, Intermittent, Less than 6 Hours Per Day (ICD-10-PCS; principal; 2017-06-21)
DX: I50.23 Acute on chronic systolic (congestive) heart failure (principal); I42.9 Cardiomyopathy, unspecified; E87.79 Other fluid overload; I15.0 Renovascular hypertension; N18.6 End stage renal disease; E87.5 Hyperkalemia; Q60.0 Renal agenesis, unilateral; N25.81 Secondary hyperparathyroidism of renal origin; I34.0 Nonrheumatic mitral (valve) insufficiency; D63.1 Anemia in chronic kidney disease; F17.210 Nicotine dependence, cigarettes, uncomplicated; Z99.2 Dependence on renal dialysis
CPT/HCPCS: J0360; J1940; J2060

== ENCOUNTER 2017-06-27 17:27 | Inpatient (IN) | payer OTHER, MEDICAID ==
--- NOTE | 2017-06-27 17:45 | CPEKG ---
Heart Rate: 105 RR Interval: 571 P-R Interval: 128 QRSD Interval: 80 QT Interval: 356 QTC Interval: 471 P Bedford: 65 QRS Bedford: -6 T Wave Bedford: 89 EKG Severity - BORDERLINE ECG - EKG Impression: SINUS TACHYCARDIA EKG Impression: BORDERLINE PROLONGED QT INTERVAL Electronically Signed By: Afia Tompkins 27-Jun-2017 20:48:13
--- NOTE | 2017-06-27 17:49 | EDPHY ---
H & P Stated Complaint: sob inc. x1 week, worse laying flat, hx chf, last dialysis , h/a HPI/ROS: CHIEF COMPLAINT: Short of breath, headache HISTORY OF PRESENT ILLNESS: This is a 26-year-old male with end-stage renal disease on hemodialysis thrice weekly. He also has congestive heart failure and is reportedly scheduled for cardiac catheterization this coming Saturday, 4 days from now. He presents today complaining of persistent and worsening dyspnea with any exertion. He states that he has had a rapid heart rate for days, if not weeks. He is not experiencing chest pain. He reports that he is compliant with his medications. He was dialyzed yesterday. He also reports headache that has been present for 3 days. He has been taking Tylenol and Excedrin with no relief. In the past he has had headaches after dialysis but it has been quite some time since that occurred. Earlier today h noted some blurred vision. He otherwise denies current visual changes, confusion, difficulty with speech, numbness or weakness. REVIEW OF SYSTEMS: A ten point review of systems was performed and is negative with the exception of the items mentioned in the HPI. Past medical history: 1. CHF 2. End Stage Renal Disease secondary to solitary kidney - hemodialysis for ~3 years 3 systolic heart failure 4. Mitral regurgitation Past surgical history: Left upper extremity AV fistula Social history: . 3 children. Lives in [place]. Disabled. General Appearance: Alert. Vital signs reviewed. He appears to be in pain. Blood pressure 180/110, heart rate 110 at triage. Eyes: Pupils equal and round, no conjunctival injection, no discharge. Anicteric. ENT, Mouth: Mucous membranes are moist, no oropharyngeal erythema or edema. Neck: No lymphadenopathy, supple. Respiratory: Lungs are clear to auscultation; no wheezes, rales, or rhonchi. Cardiovascular: Tachycardic; no murmur, rub, or gallop. Gastrointestinal: Abdomen is soft and nontender, no masses or organomegaly, bowel sounds normal. Skin: Warm and dry, no rashes on exposed skin, normal color. Back: Nontender to palpation over the thoracolumbar spine. No CVAT. Extremities: No lower extremity edema, no calf tenderness or swelling. Neurological: Alert and oriented. Moving all four extremities easily and equally. Psychiatric: Anxious. Source: Patient - Personal History Current Tetanus/Diphtheria Vaccine: No Current Tetanus Diphtheria and Acellular Pertussis (TDAP): No - Medical/Surgical History Hx Asthma: No Hx Chronic Respiratory Disease: No Hx Diabetes: No Hx Cardiac Disease: Yes Hx Renal Disease: Yes Hx Cirrhosis: No Hx Alcoholism: No Hx HIV/AIDS: No Hx Splenectomy or Spleen Trauma: No Other PMH: PMHx: dialysis for renal dysfunction, HTN, dental caries, chf, mitral valve prolapse. PSHx: gallbladder removal, fistula peritoneal Dialysis in and out, other dialysis surgery - Social History Smoking Status: Current every day smoker Constitutional: Initial Vital Signs Temperature (C) 37.3 C 06/27/17 17:31 Heart Rate 112 H 06/27/17 17:31 Respiratory Rate 18 06/27/17 17:31 Blood Pressure 180/110 H 06/27/17 17:31 O2 Sat (%) 94 06/27/17 17:31 O2 Delivery Mode Nasal Cannula O2 (L/minute) 2 Allergies/Adverse Reactions: No Known Allergies Allergy (Verified 06/21/17 06:24) Home Medications: Medication Instructions Recorded Furosemide [Lasix 80 MG (*)] 80 mg PO BID 06/21/17 Topiramate [Topamax 25MG (*)] 25 mg PO HS 06/21/17 Calcium Carbonate [Tums 500MG (*)] 1,500 mg PO TIDMEAL 06/27/17 Acetaminophen [Tylenol 325mg (*)] 650 mg PO Q4 PRN tab 06/30/17 Carvedilol [Coreg (*)] 25 mg PO BIDMEAL #60 tab 06/30/17 Isosorbide Mononitrate [Imdur 30 60 mg PO DAILY #60 tab.sr 06/30/17 mg (*)] LORazepam [Ativan (*)] 1 mg PO Q4 PRN #30 tab 06/30/17 amLODIPine BESYLATE [Norvasc 10 mg 10 mg PO DAILY #30 tab 06/30/17 (*)] hydrALAZINE [Apresoline] 25 mg PO TID #90 tab 06/30/17 oxyCODONE IR [Oxycodone Ir (*)] 5 - 10 mg PO Q4 PRN #15 tab 06/30/17 Medical Decision Making - Diagnostics Imaging: Discussed imaging studies w/ call person Radiologist, I viewed and interpreted images myself ED Course/Re-evaluation: 1904: Reevaluated patient and discussed work up thus far. His head CT is negative for acute process/bleed. Chest x-ray shows CHF. Labs indicate anemia with Hgb 6.7 and he tells me he has required 4 prior blood transfusions. 1925: Spoke with hospitalist service. Dr. Rincon who accepts admission. 1939: Consulted with Dr. Florez, nephrology. He tells me the patient has a history of not completing his dialysis. He will arrange dialysis for him in the hospital tomorrow if needed. Dr. Florez points out that patient is not hypoxic and does not need emergent dialysis tonight. He recommends against transfusing blood. 1949: Discussed freelance patternmaker's recommendation with the patient. He says he's only left treatments early 4-5 times and that's usually due to his anxiety and depression. He is not seeing a therapist currently. We will work to arrange access to mental health resources for him. He has been markedly hypertensive in the emergency department. Lopressor ordered for treatment of blood pressure. Minimal initial response to the Lopressor. Pain medication also ordered for headache--pain relief might also help with his BP. Patient has previously been admitted under very similar circumstances--headache , hypertension, CHF (acute on chronic). - Data Points Laboratory Results: Laboratory Results 06/27/17 17:47 06/27/17 17:47 Medications Given: Discontinued Medications Acetaminophen (Tylenol) 650 mg PO Q4 PRN PRN Reason: Pain, Mild/Fever, Can Take PO Stop: 12/24/17 21:02 Last Admin: 06/30/17 08:18 Dose: 650 mg Acetaminophen (Tylenol) 1,000 mg PO ONCE ONE Stop: 06/29/17 15:17 Last Admin: 06/29/17 15:23 Dose: 1,000 mg Amlodipine Besylate (Norvasc) 10 mg PO DAILY BRANDY Stop: 12/25/17 08:59 Last Admin: 06/30/17 09:35 Dose: 10 mg Benzocaine (Hurricaine [place]) 1 each MM ONCALL ONE Stop: 06/27/17 21:00 Last Admin: 06/27/17 22:34 Dose: Not Given Benzocaine (Hurricaine [place]) 1 each MM ONCALL ONE Stop: 06/28/17 06:01 Last Admin: 06/28/17 14:48 Dose: Not Given Calcium Carbonate (Tums) 1,500 mg PO TIDMEAL [facility] Stop: 12/25/17 07:59 Last Admin: 06/30/17 17:11 Dose: 1,500 mg Carvedilol (Coreg) 12.5 mg PO BIDMEAL [facility] Stop: 12/25/17 07:59 Last Admin: 06/29/17 07:41 Dose: 12.5 mg Carvedilol (Coreg) 25 mg PO BIDMEAL [facility] Stop: 12/26/17 17:59 Last Admin: 06/30/17 17:11 Dose: 25 mg Dexamethasone (Decadron) 4 mg PO ONCE ONE Stop: 06/29/17 16:36 Last Admin: 06/29/17 17:22 Dose: Not Given Dexamethasone (Decadron) 4 mg PO ONCE ONE Stop: 06/29/17 17:16 Last Admin: 06/29/17 17:22 Dose: 4 mg Diphenhydramine HCl (Benadryl Injection) 25 mg IVP Q4HRS PRN PRN Reason: Itching Stop: 12/26/17 16:35 Last Admin: 06/30/17 09:50 Dose: 25 mg Fentanyl (Sublimaze) 50 mcg IVP EDNOW ONE Stop: 06/27/17 20:51 Last Admin: 06/27/17 21:05 Dose: 50 mcg Fentanyl (Sublimaze) 0 - 100 mcg IVP ONCALL ONE Stop: 06/27/17 21:00 Last Admin: 06/27/17 22:35 Dose: Not Given Fentanyl (Sublimaze) 0 - 100 mcg IVP ONCALL ONE Stop: 06/28/17 06:01 Last Admin: 06/28/17 15:02 Dose: Not Given Furosemide (Lasix) 80 mg PO BID [facility] Stop: 12/24/17 20:59 Last Admin: 06/30/17 08:20 Dose: 80 mg Heparin Sodium (Porcine) (Heparin Sc Injection) 5,000 unit SC Q8 [facility] Stop: 12/24/17 21:59 Last Admin: 06/30/17 15:15 Dose: Not Given Hydralazine HCl (Apresoline) 25 mg PO TID [facility] Stop: 12/24/17 21:59 Last Admin: 06/30/17 15:17 Dose: 25 mg Hydralazine HCl (Apresoline) 10 mg IVP Q6 PRN PRN Reason: SBP>160 Stop: 12/24/17 20:56 Last Admin: 06/29/17 11:43 Dose: 10 mg Hydromorphone HCl (Dilaudid) 0.5 mg IVP EDNOW ONE Stop: 06/27/17 18:48 Last Admin: 06/27/17 18:57 Dose: 0.5 mg Hydromorphone HCl (Dilaudid) 0.5 mg IVP Q4HRS PRN PRN Reason: Pain, Severe Unable to Take PO Stop: 07/07/17 19:34 Last Admin: 06/28/17 01:21 Dose: 0.5 mg Hydromorphone/Sodium Chloride (Hydromorphone) 0.2 - 0.4 mg IVP Q2 PRN PRN Reason: Pain, Severe Unable to Take PO Stop: 07/08/17 11:26 Last Admin: 06/30/17 17:15 Dose: 0.4 mg Sodium Chloride (Ns) 500 mls @ 0 mls/hr IV ONCALL ONE PRN Reason: TKO Stop: 06/27/17 21:00 Last Admin: 06/27/17 22:35 Dose: Not Given Sodium Chloride (Ns) 500 mls @ 0 mls/hr IV ONCALL ONE PRN Reason: TKO Stop: 06/28/17 06:01 Last Admin: 06/28/17 14:51 Dose: Not Given Sodium Chloride (Ns) 1,000 mls @ 0 mls/hr IV ONCALL ONE PRN Reason: TKO Stop: 06/28/17 09:08 Last Admin: 06/28/17 14:21 Dose: Not Given Isosorbide Mononitrate (Imdur) 30 mg PO DAILY BRANDY Stop: 12/25/17 08:59 Last Admin: 06/29/17 10:45 Dose: 30 mg Isosorbide Mononitrate (Imdur) 60 mg PO DAILY BRANDY Stop: 12/25/17 08:59 Last Admin: 06/30/17 09:35 Dose: 60 mg Lorazepam (Ativan) 1 mg PO Q4 PRN PRN Reason: Anxiety, Able to Take PO Stop: 12/24/17 22:00 Last Admin: 06/30/17 09:59 Dose: 1 mg Metoprolol Tartrate (Lopressor Injection) 5 mg IVP EDNOW ONE Stop: 06/27/17 18:17 Last Admin: 06/27/17 18:40 Dose: 5 mg Metoprolol Tartrate (Lopressor Injection) 5 mg IVP ONCE ONE Stop: 06/27/17 19:42 Last Admin: 06/27/17 19:43 Dose: 5 mg Metoprolol Tartrate (Lopressor Injection) 5 mg IVP Q6HRS PRN PRN Reason: SBP Greater Than 160 Stop: 12/25/17 00:00 Last Admin: 06/29/17 14:59 Dose: 5 mg Midazolam HCl (Versed) 0 - 6 mg IVP ONCALL ONE Stop: 06/27/17 21:00 Last Admin: 06/27/17 22:35 Dose: Not Given Midazolam HCl (Versed) 0 - 6 mg IVP ONCALL ONE Stop: 06/28/17 06:01 Last Admin: 06/28/17 14:21 Dose: Not Given Ondansetron HCl (Zofran) 4 mg IVP Q4 PRN PRN Reason: Nausea/Vomiting, Can't Take PO Stop: 12/24/17 21:02 Last Admin: 06/30/17 12:25 Dose: 4 mg Oxycodone HCl (Oxycodone Ir) 5 - 10 mg PO Q4 PRN PRN Reason: Pain, Severe Able to Take PO Stop: 07/07/17 21:02 Last Admin: 06/30/17 15:16 Dose: 10 mg Promethazine HCl (Phenergan) 6.25 mg IVP Q6 PRN PRN Reason: Nausea/Vomiting, Can't Take PO Stop: 12/24/17 21:02 Last Admin: 06/30/17 17:14 Dose: 6.25 mg Sumatriptan Succinate (Imitrex) 50 mg PO ONCE ONE Stop: 06/29/17 15:16 Last Admin: 06/29/17 15:31 Dose: 50 mg Topiramate (Topamax) 25 mg PO HS BRANDY Stop: 12/24/17 20:59 Last Admin: 06/29/17 21:03 Dose: 25 mg Departure - Departure Disposition: [facility] Acute Clinical Impression: CKD (chronic kidney disease) stage V requiring chronic dialysis, Shortness of breath, Hypertensive urgency Anemia Qualifiers: Anemia type: other cause Other causes of anemia: other cause, not classified Qualified Code(s): D64.89 - Other specified anemias CHF (congestive heart failure) Qualifiers: Congestive heart failure type: unspecified congestive heart failure type Congestive heart failure chronicity: unspecified congestive heart failure chronicity Qualified Code(s): I50.9 - Heart failure, unspecified Condition: Fair Report Scribed for: Afia Tompkins Report Scribed by: Debbie Zhou Date of Report: 06/27/17 Time of Report: 17:57 Physician Review and Approval Statement: 06/27/17 17:49 Portions of this note were transcribed by the medical administrative. I, Dr. Afia Tompkins, personally performed the history, physical exam, and medical decision- making; and confirmed the accuracy of the information in the transcribed note.
[2017-06-27] MEDS ORDERED: METOPROLOL TARTRATE 5 MG/5 ML INJ IVP ONE ×2 (18:16→19:41)
[2017-06-27 18:18] LABS: CALCIUM 9.1 mg/dL (8.5-10.4); CARBON DIOXIDE 30 mEq/l (22-31); CHLORIDE 95 mEq/L (97-110); GLOMERULAR FILTRATION RATE 8; GLUCOSE 98 mg/dL (70-100); SODIUM 138 mEq/L (134-144)
[2017-06-27 18:29] LABS: % IMMATURE GRANULYOCYTES 0.2 % (0.0-1.1); ABSOLUTE IMMATURE GRANULOCYTES 0.02 10^3/uL (0.00-0.10); ADD DIFF? NO; ADD MORPH? YES; ADD SCAN? NO; ATYPICAL LYMPHOCYTE FLAG 0 (0-99); FRAGMENT RBC FLAG 0 (0-99); LEFT SHIFT FLG 0 (0-99); LIPEMIA HEMOLYSIS FLAG 80 (0-99); MEAN CELL HEMOGLOBIN 29.1 pg (27.9-34.1); MEAN CELL VOLUME 88.3 fL (81.5-99.8); MEAN PLATELET VOLUME 9.6 fL (8.7-11.7); PLATELET CLUMPS FLAG 0 (0-99); PLATELET COUNT 235 10^3/uL (150-400); RED CELL DISTRIBUTION WIDTH 13.5 % (11.5-15.2)
[2017-06-27 18:30] LABS: TROPONIN I 0.047 ng/mL (0.000-0.034)
[2017-06-27 18:32] LABS: HEMATOCRIT 20.3 % (40.0-51.0); HEMOGLOBIN 6.7 g/dL (13.7-17.5)
[2017-06-27 18:41] LABS: ANION GAP 13 mEq/L (8-16); POTASSIUM 5.1 mEq/L (3.5-5.2)
[2017-06-27 18:43] LABS: CREATININE 8.6 mg/dL (0.7-1.3)
[2017-06-27] MEDS ORDERED: HYDROmorphONE/DILAUDID 1 MG/ML INJ IVP ONE (18:47)
[2017-06-27 19:05] LABS: MACROCYTES 1+; MICROCYTES 1+; PLATELET ESTIMATE ADEQUATE (ADEQ); SCHISTOCYTES 1+
[2017-06-27] MEDS ORDERED: HYDROmorphONE/DILAUDID 1 MG/ML INJ ONE (19:29)
[2017-06-27] MEDS ORDERED: METOPROLOL TARTRATE 5 MG/5 ML INJ ONE (19:31)
[2017-06-27] MEDS: HYDROmorphONE/DILAUDID 1 MG/ML INJ IVP PRN (20:15)
[2017-06-27] MEDS ORDERED: fentaNYL 100 MCG/2 ML INJ IVP ONE ×2 (20:50→20:59)
[2017-06-27] MEDS ORDERED: BENZOCAINE UNIT DOSE SPRAY HURRICAINE MM ONE (20:59)
[2017-06-27] MEDS ORDERED: MIDAZOLAM 2 MG/2 ML VIAL IVP ONE (20:59)
[2017-06-27] MEDS ORDERED: NS 500 ML IV ONE (20:59)
[2017-06-27] MEDS ORDERED: HYDROmorphONE/DILAUDID 1 MG/ML INJ IVP PRN (21:03)
[2017-06-27] MEDS: hydrALAZINE 25 MG TAB PO SCH (21:50)
[2017-06-27] MEDS: FUROSEMIDE 80 MG TAB PO SCH (21:50)
[2017-06-27] MEDS: TOPIRAMATE 25 MG TAB PO SCH (21:50)
[2017-06-27] MEDS: oxyCODONE IR 5 MG TAB PO PRN (21:50)
[2017-06-27] MEDS: HEPARIN 5,000 UNIT/0.5 ML SYR SC SCH (21:51)
[2017-06-27] MEDS: METOPROLOL TARTRATE 5 MG/5 ML INJ IVP PRN (21:51)
--- NOTE | 2017-06-27 22:15 | GHP ---
[f rep st] HISTORY AND PHYSICAL DATE OF ADMISSION: 06/27/2017 CHIEF COMPLAINT: Shortness of breath. 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 He is now on dialysis and has known severe mitral regurgitation and has had troubles with shortness of breath f or quite some time. He was hospitalized here last week, seen by Dr. Florez and Dr. Sanderson, but had to leave AMA to attend to a short storage space that he was losing, and he did not want to lose all of h is stuff. He is now back with the same symptoms. He describes severe dyspnea on exertion with palpi tations. He also gets these symptoms when he is lying flat. He feels fine only when he sitting upri ght. There has been no chest pain. He has severe headache. He has been taking his medications, and denies any missed doses. Says he lives with his mom, and his mom sets up his pills every day and ma kes sure he takes them. He denies missing any hemodialysis, however, he frequently comes off the hector lysis early because it is poorly tolerated, although he admits that it is his uncontrolled anxiety an d depression that are the limiting factors. He was seeing mental health when he lived in [place] , but since he has moved back to [place], he is not currently being treated, but does ask for help i n this regard. PAST MEDICAL HISTORY: 1. 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 2. Chronic systolic congestive heart failure. Ejection fraction 30%. This is nonischemic, as he hayes d a previous cardiac catheterization that showed minimal coronary artery disease. 3. Severe mitral regurgitation. According to Dr. Sanderson, he needs surgery and plan is for CT surgery consultation. 4. Hypertension. MEDICATIONS: Please see computer records for full detailed list. ALLERGIES: No known drug allergies. SOCIAL HISTORY: He smokes 2 cigarettes per day. He occasionally smokes marijuana. No alcohol. Miladis es with his mom. REVIEW OF SYSTEMS: Complete review of systems obtained. Review of systems negative regarding CONSTI TUTIONAL, HEENT, GI, PULMONARY, CARDIOVASCULAR, , HEMATOLOGY, SKIN, MUSCULOSKELETAL, ENDOCRINE, PSY CH except for positives and negatives as noted in HPI. FAMILY HISTORY: Reviewed, noncontributory to presenting complaint. PHYSICAL EXAMINATION: GENERAL: Well-developed, well-nourished male, in no distress. VITAL SIGNS: Temperature 37.3, pulse 112, blood pressure 182/123, saturating 94% on room air. HEENT: Normal conj unctivae. Pupils react to light. ENT normal ears and nose. Hearing intact. Normal lips and teeth. Oropharynx moist. NECK: Trachea midline. No thyromegaly. CHEST: Normal respiratory effort. HANK NGS: Clear to auscultation bilaterally. CARDIOVASCULAR: Regular rate and rhythm. No murmur. No e xtremity edema. ABDOMEN: Soft, nontender. No hepatosplenomegaly. SKIN: Warm, dry, intact without rash. MUSCULOSKELETAL: No cyanosis or clubbing. Strength 5/5 upper and lower extremities. NEUROL OGIC: Cranial nerves intact. Normal sensation to light touch. PSYCH: Alert and oriented x3. Norm al mood and affect. Normal judgment and insight. Normal memory. LABORATORY DATA: White count 8.67, hematocrit 20.3, hemoglobin 6.7, platelets 235. Sodium 138, pota ssium 5.1, chloride 95, bicarb 30, BUN 37, creatinine 8.6, troponin 0.047. EKG viewed by me. My per rosa interpretation is sinus tachycardia, no ST changes. Chest x-ray shows congestive heart failure . ASSESSMENT: 1. Hypertensive urgency. Dr. Sanderson recommended increasing his amlodipine to 10 mg, his Coreg to 12.5 mg twice daily, and his hydralazine to 25 mg p.o. t.i.d., in addition to continue his Imdur 30 mg p. o. daily. We were not able to prescribe these changes, as the patient subsequently left against [facility] advice, but he is now back requesting full treatment. Will increase medications as previously re commended. 2. Severe mitral regurgitation. Plan per Dr. Sanderson with SANJAY, and then CT surgery consultation. I hayes ve spoken to Dr. Nj and Cardiology will reconsult. I will order a SANJAY for the morning. 3. End-stage renal disease. He is mildly volume overloaded. There is no indication for emergent di alysis tonight. Nephrology has been called and Dr. Florez is aware. 4. Anemia. This is definitely worsening his symptoms. Will transfuse 1 unit. 5. Troponin elevation. This is likely due to strain. Cardiac catheterization previously unremarkab le. 6. Acute on chronic systolic congestive heart failure. Ejection fraction 30%. This is probably due to his nonischemic cardiomyopathy due to his chronic volume overload status versus valvular disease. 7. Anxiety and depression. He is asking for help and admits that this is limiting his ability to co mplete dialysis as ordered. He requests outpatient resources. I will also have Yeni Mullins see him h ere in the hospital. CODE STATUS: Full. ADMISSION STATUS: Will admit to inpatient. He is medically complex and anticipate greater than 2 mi dnights. DVT PROPHYLAXIS: He is moderate risk. Will place him on subcu heparin. /[id number]/MODL
[2017-06-27] MEDS: LORazepam 1 MG TAB PO PRN (22:22)
[2017-06-28] MEDS: HYDROmorphONE/DILAUDID 1 MG/ML INJ IVP PRN (01:21)
[2017-06-28] MEDS: ACETAMINOPHEN 325 MG TAB PO PRN ×3 (02:45→15:17)
[2017-06-28] MEDS: oxyCODONE IR 5 MG TAB PO PRN ×5 (02:45→19:54)
[2017-06-28] MEDS: LORazepam 1 MG TAB PO PRN ×4 (02:45→21:52)
[2017-06-28] MEDS ORDERED: fentaNYL 100 MCG/2 ML INJ IVP ONE (06:00)
[2017-06-28] MEDS ORDERED: BENZOCAINE UNIT DOSE SPRAY HURRICAINE MM ONE (06:00)
[2017-06-28] MEDS ORDERED: NS 500 ML IV ONE (06:00)
[2017-06-28] MEDS ORDERED: MIDAZOLAM 2 MG/2 ML VIAL IVP ONE (06:00)
[2017-06-28] MEDS: HEPARIN 5,000 UNIT/0.5 ML SYR SC SCH ×3 (06:11→21:24)
[2017-06-28 06:28] LABS: % IMMATURE GRANULYOCYTES 0.5 % (0.0-1.1); ABSOLUTE IMMATURE GRANULOCYTES 0.04 10^3/uL (0.00-0.10); ADD DIFF? NO; ADD MORPH? YES; ADD SCAN? NO; ATYPICAL LYMPHOCYTE FLAG 10 (0-99); FRAGMENT RBC FLAG 0 (0-99); HEMATOCRIT 20.5 % (40.0-51.0); LEFT SHIFT FLG 0 (0-99); LIPEMIA HEMOLYSIS FLAG 80 (0-99); MEAN CELL HEMOGLOBIN CONCENTR. 33.7 g/dL (32.4-36.7); MEAN CELL VOLUME 89.1 fL (81.5-99.8); MEAN PLATELET VOLUME 9.3 fL (8.7-11.7); PLATELET CLUMPS FLAG 10 (0-99); PLATELET COUNT 231 10^3/uL (150-400); RED CELL DISTRIBUTION WIDTH 13.4 % (11.5-15.2)
[2017-06-28 06:36] LABS: HEMOGLOBIN 6.9 g/dL (13.7-17.5)
[2017-06-28] MEDS: FUROSEMIDE 80 MG TAB PO SCH ×2 (06:43→19:55)
[2017-06-28 06:44] LABS: ANION GAP 15 mEq/L (8-16); CARBON DIOXIDE 29 mEq/l (22-31); CHLORIDE 96 mEq/L (97-110); CHOLESTEROL 164 mg/dL (140-200); CHOLESTEROL/HDL RATIO 5.13 RATIO (1.00-4.97); GLOMERULAR FILTRATION RATE 6; GLUCOSE 87 mg/dL (70-100); HIGH DENSITY LIPOPROTEIN 32 mg/dL (40-70); LDL/HDL RATIO 3.47 RATIO (1.00-3.64); LOW DENSITY LIPOPROTEIN 111 mg/dL (60-100); NON-HIGH DENSITY LIPOPROTEIN 132 mg/dL (90-129); POTASSIUM 4.9 mEq/L (3.5-5.2); SODIUM 140 mEq/L (134-144); TRIGLYCERIDE 109 mg/dL (40-150); VERY LOW DENSITY LIPOPROTEINS 21 mg/dL (8-25)
[2017-06-28 06:55] LABS: CREATININE 9.8 mg/dL (0.7-1.3); TROPONIN I 0.047 ng/mL (0.000-0.034)
[2017-06-28 07:39] LABS: PLATELET ESTIMATE ADEQUATE (ADEQ)
[2017-06-28 07:41] LABS: MACROCYTES 1+; MICROCYTES 1+
[2017-06-28] MEDS: hydrALAZINE 25 MG TAB PO SCH ×3 (08:44→19:55)
[2017-06-28] MEDS: ONDANSETRON 4 MG/2 ML VIAL IVP PRN ×3 (08:49→22:11)
[2017-06-28] MEDS: CARVEDILOL 6.25 MG TAB PO SCH ×2 (08:52→18:20)
[2017-06-28] MEDS: CALCIUM CARBONATE 500 MG CHEWABLE TAB PO SCH ×3 (08:53→18:22)
[2017-06-28] MEDS: ISOSORBIDE MONONITRATE 30 MG TAB.SR PO SCH (08:56)
[2017-06-28] MEDS ORDERED: NS 1,000 ML IV ONE (09:07)
--- NOTE | 2017-06-28 09:22 | HOSPPROG ---
Hospitalist Progress Note Assessment/Plan: # severe MR with dyspnea/tachycardia- SANJAY to evaluate today # ESRD - HD today # anemia of CKD - transfuse per renal # acute on chronic sCHF, non-ischemic- last EF 35% - will d/w cards optimizing meds (currently coreg and lasix, no MARIZOL/ARB) # htn - cont norvasc, coreg, lasix, hydral, imdur # anxiety/depression - dom arita to see him Subjective: still SOB with minimal activity; also feels heart racing Objective: Vital Signs Temp Pulse Resp BP Pulse Ox 36.7 C 109 H 15 182/125 H 92 06/28/17 07:16 06/28/17 07:16 06/28/17 07:16 06/28/17 07:16 06/28/17 07:16 Laboratory Results 06/28/17 06:08 06/28/17 06:08 06/27/17 06/28/17 06/29/17 05:59 05:59 05:59 Intake Total 100 Balance 100 chart reviewed ECG personally reviewed discussed with Dr Bernal - TAMERA today - Physical Exam Constitutional: no apparent distress, appears nourished Cardiovascular: systolic murmur, tachycardia, No irregularly irregular, No diastolic murmur Respiratory: no respiratory distress, no rales or rhonchi, clear to auscultation Gastrointestinal: normoactive bowel sounds, soft, non-tender abdomen, no palpable masses ICD10 Worksheet Patient Problems: Problems Problem Status Onset Anemia Acute CHF (congestive heart failure) Acute CKD (chronic kidney disease) stage V requiring chronic dialysis Acute Shortness of breath Acute Admission for dialysis Acute ESRD (end stage renal disease) Acute Hyperkalemia Acute Hypoxemia Acute Left ankle sprain Acute Pulmonary edema Acute
--- NOTE | 2017-06-28 09:25 | SOAPPROG ---
AJSON Progress Note Assessment/Plan: Assessment/Plan: ESRD: on HD MWF. - Will do HD today per normal schedule. - Will plan on additional HD tomorrow for more fluid removal in case this improves his dyspnea symptoms. Anemia: Pt being transfused 1 unit PRBCs today. Will also give epo. HTN: Continue home meds. NADIA: pt on calcium carbonate with meals, will check phos. Subjective: Pt is a 26 yo M with h/o ESRD on HD MWF at [facility]. He was seen here last week for dyspnea and was planned for dialysis, but then he left early due to personal issues that needed handling. He frequently cuts his dialysis session down by at least an hour. He retrned yesterday again with dyspnea, not requiring oxygen. Pt states that he feels short of breath with even getting up and walking across the room. He has no pain currently. His Hgb is noted to be low this time at 6.9, was 8.2 last week. Objective: Vital Signs Temp Pulse Resp BP Pulse Ox 36.7 C 109 H 15 182/125 H 92 06/28/17 07:16 06/28/17 07:16 06/28/17 07:16 06/28/17 07:16 06/28/17 07:16 Laboratory Results 06/28/17 06:08 06/28/17 06:08 06/27/17 06/28/17 06/29/17 05:59 05:59 05:59 Intake Total 100 Balance 100 General: alert and oriented, no acute distress Eyes; EOMI, PERRL OP: Clear CV: RRR Resp: nonlabored respirations on RA Abd: Soft, NT/ND Ext: no edema BLE Neuro: CN II-XII grossly intact, no asterixis Psych: cooperative, appropriate mood and affect ICD10 Worksheet Patient Problems: Problems Problem Status Onset Anemia Acute CHF (congestive heart failure) Acute CKD (chronic kidney disease) stage V requiring chronic dialysis Acute Shortness of breath Acute Admission for dialysis Acute ESRD (end stage renal disease) Acute Hyperkalemia Acute Hypoxemia Acute Left ankle sprain Acute Pulmonary edema Acute
--- NOTE | 2017-06-28 11:03 | PDMN ---
Medical Necessity Medical necessity: est los>2mn for hypertensive urgency, severe mitral regurgitation, anemia, acute on chronic systolic CHF, elevated troponin, and anxiety and depression limiting his ability to complete HD; requires SANJAY, CT surgery and neph consult; comorbid ESRD; per H&P
[2017-06-28] MEDS ORDERED: MIDAZOLAM 2 MG/2 ML VIAL ONE (12:57)
[2017-06-28] MEDS ORDERED: fentaNYL 100 MCG/2 ML INJ ONE (12:58)
--- NOTE | 2017-06-28 13:16 | PDHPUP ---
History & Physical Update H&P update statement: This history and physical update is based on an assessment of the patient which was completed after admission or registration (within 24 hours), but prior to the surgery/procedure. H&P update: H&P reviewed & patient examined, no change in patient's condition since H&P completed
--- NOTE | 2017-06-28 13:17 | PDPROPOC ---
Sedation Plan of Care Sedation Plan of Care: vital signs stable, mental status noted, patient educated of risks, benefits, alternatives, patient can tolerate sedation ASA Classification: ASA 2 Planned drugs: fentanyl, midazolam Mallampati Score: Class 2 Mallampati Reference Image: Patient passed 3-3-2 rule?: Yes
--- NOTE | 2017-06-28 15:46 | ECHO ---
[email or web address] [address] Main: [phone] Fax: Transesophageal Echocardiography Name: CONRADO ESPINOSA MR#: [id number] Study Date: 06/28/2017 Study Time: 01:19 PM Date of : 1990 Age: 26 year(s) Height: ( ) Weight: ( ) BSA: Gender: Male Examination: SANJAY Indication: MR Image Quality: Contrast: Requested by: Candida Lima Heart Rate: Rhythm: BP: / Procedure Staff [employer] E[employer] Architect: Andrea Melchor Reading Physician: Robert Nj Requesting Provider: SANJAY Exam Details Conclusions: The left ventricle is normal in size with preserved LV systolic function. There is a slight globular appearance to the left ventricle. The ejection fraction is visually estimated at 55-60%. There are no regional wall motion abnormalities. The left atrial, right atrial and right ventricular chamber dimensions are normal. Right ventricular systolic function is normal. The aortic valve is trileaflet in appearance with no stenosis or insufficiency. The mitral leaflets appear to be normal however the coaptation point appears to be apically displaced. There is a small, calcified echodensity appreciated in the region of the tertiary chordae likely representing a redundant chordae. There is moderate to severe centrally directed mitral regurgitation. The tricuspid valve is normal in appearance with trivial tricuspid regurgitation. The left atrial appendage is free of thrombus. There is a small pericardial effusion. Measurements: Chambers Valvular Assessment AV/MV Valvular Assessment TV/PV Normal Normal Normal Name Value Range Name Value Range Name Value Range Additional Measurements: Findings: Left Ventricle: Normal global systolic LV function. No regional wall motion abnormality. Right Ventricle: Normal size right ventricle. Patient: CONRADO ESPINOSA Study Date: 06/28/2017 Page 1 of 2 01:19 PM Left Atrium: The left atrium is normal in size. Left Atrial Appendage: Good color flow doppler in the left atrial appendage. Normal PW-Doppler flow pattern. Mitral Valve: The mitral valve is normal in appearance. Moderate to severe mitral regurgitation. Aortic Valve: The aortic valve is tri-leaflet. The aortic valve is normal in appearance. Tricuspid Valve: The tricuspid valve appears normal. Pulmonic Valve: The pulmonic valve is normal in appearance and function. Aorta: The aorta is normal. Pericardium: Small pericardial effusion. l1n (No Signature Object) Patient: CONRADO ESPINOSA Study Date: 06/28/2017 Page 2 of 2 01:19 PM [id number]
[2017-06-28] MEDS: hydrALAZINE 20 MG/ML VIAL IVP PRN (18:09)
[2017-06-28] MEDS: HYDROmorphone HCL/NS/PF 0.4 MG/2 ML SYR IVP PRN ×2 (18:20→22:04)
[2017-06-28] MEDS: TOPIRAMATE 25 MG TAB PO SCH (19:55)
[2017-06-28] MEDS: METOPROLOL TARTRATE 5 MG/5 ML INJ IVP PRN (21:52)
[2017-06-29] MEDS: ONDANSETRON 4 MG/2 ML VIAL IVP PRN ×3 (04:28→18:49)
[2017-06-29] MEDS: hydrALAZINE 20 MG/ML VIAL IVP PRN ×2 (04:28→11:43)
[2017-06-29] MEDS: HYDROmorphone HCL/NS/PF 0.4 MG/2 ML SYR IVP PRN ×5 (04:35→21:07)
[2017-06-29] MEDS: HEPARIN 5,000 UNIT/0.5 ML SYR SC SCH ×3 (05:18→21:07)
[2017-06-29 05:55] LABS: % IMMATURE GRANULYOCYTES 0.6 % (0.0-1.1); ABSOLUTE IMMATURE GRANULOCYTES 0.04 10^3/uL (0.00-0.10); ADD DIFF? NO; ADD MORPH? NO; ADD SCAN? NO; ATYPICAL LYMPHOCYTE FLAG 10 (0-99); FRAGMENT RBC FLAG 0 (0-99); HEMATOCRIT 22.8 % (40.0-51.0); HEMOGLOBIN 7.7 g/dL (13.7-17.5); LEFT SHIFT FLG 0 (0-99); LIPEMIA HEMOLYSIS FLAG 90 (0-99); MEAN CELL HEMOGLOBIN 30.4 pg (27.9-34.1); MEAN CELL HEMOGLOBIN CONCENTR. 33.8 g/dL (32.4-36.7); MEAN CELL VOLUME 90.1 fL (81.5-99.8); MEAN PLATELET VOLUME 9.5 fL (8.7-11.7); PLATELET CLUMPS FLAG 0 (0-99); PLATELET COUNT 242 10^3/uL (150-400); RED BLOOD CELL COUNT 2.53 10^6/uL (4.40-6.38); RED CELL DISTRIBUTION WIDTH 13.4 % (11.5-15.2)
[2017-06-29] MEDS: oxyCODONE IR 5 MG TAB PO PRN ×3 (06:01→15:17)
[2017-06-29 06:20] LABS: ALBUMIN 3.4 g/dL (3.5-5.0); ANION GAP 11 mEq/L (8-16); CALCIUM 9.3 mg/dL (8.5-10.4); CARBON DIOXIDE 29 mEq/l (22-31); CHLORIDE 98 mEq/L (97-110); CREATININE 7.4 mg/dL (0.7-1.3); GLOMERULAR FILTRATION RATE 9; GLUCOSE 71 mg/dL (70-100); POTASSIUM 5.4 mEq/L (3.5-5.2); SODIUM 138 mEq/L (134-144)
[2017-06-29] MEDS: CARVEDILOL 6.25 MG TAB PO SCH (07:41)
[2017-06-29] MEDS: METOPROLOL TARTRATE 5 MG/5 ML INJ IVP PRN ×2 (07:45→14:59)
[2017-06-29] MEDS: CALCIUM CARBONATE 500 MG CHEWABLE TAB PO SCH ×3 (07:59→17:23)
[2017-06-29] MEDS: LORazepam 1 MG TAB PO PRN ×2 (08:39→14:59)
--- NOTE | 2017-06-29 09:26 | HOSPPROG ---
Hospitalist Progress Note Assessment/Plan: # severe MR with dyspnea/tachycardia - SANJAY confirms; - Dr Nj would like to better control BP then reevaluate # QUIGLEY - ddx: htn, meds (norvasc, hydralazine, lasix, imdur), anxiety - will work with renal to improve BP and possibly simplify med list # ESRD - HD today; K was slightly elevated # anemia of CKD - s/p transfusion # acute on chronic sCHF, non-ischemic- last EF 35% - coreg increased today # htn - cont norvasc, coreg, lasix, hydral, imdur for now - will d/w renal # anxiety/depression - appreciate Yeni Harpreet's assistance - will continue ativan for now Subjective: ongoing QUIGLEY; high BP while on HD Objective: Vital Signs Temp Pulse Resp BP Pulse Ox 37.4 C 112 H 16 189/115 H 91 L 06/29/17 04:00 06/29/17 07:45 06/29/17 04:00 06/29/17 07:45 06/29/17 04:00 Laboratory Results 06/29/17 04:02 06/29/17 04:02 06/28/17 06/29/17 06/30/17 05:59 05:59 05:59 Intake Total 100 100 Balance [address] Nj SANJAY reviewed - Physical Exam Constitutional: uncomfortable Cardiovascular: regular rate and rhythym, systolic murmur, No irregularly irregular, No diastolic murmur Respiratory: no respiratory distress, no rales or rhonchi, clear to auscultation Gastrointestinal: normoactive bowel sounds, soft, non-tender abdomen, no palpable masses ICD10 Worksheet Patient Problems: Problems Problem Status Onset Hyperkalemia Acute Admission for dialysis Acute Left ankle sprain Acute ESRD (end stage renal disease) Acute Hypoxemia Acute Shortness of breath Acute CKD (chronic kidney disease) stage V requiring chronic dialysis Acute Pulmonary edema Acute Anemia Acute CHF (congestive heart failure) Acute
[2017-06-29] MEDS ORDERED: CARVEDILOL 6.25 MG TAB PO SCH (10:42)
--- NOTE | 2017-06-29 10:42 | SOAPPROG ---
[place] Progress Note Assessment/Plan: Assessment: 26-year-old male with a history of chronic renal insufficiency currently on hemodialysis, refractory hypertension and evidence of moderate to severe mitral regurgitation by echocardiography. He is admitted now with symptoms of exertional dyspnea. In the past he has had issues with compliance related to his hemodialysis and medical management. Currently, it is not entirely clear whether not his mitral regurgitation is causative in his symptoms of dyspnea. Other possibilities include his as of yet poorly controlled hypertension and possibly suboptimal volume management on dialysis. Plan: 1. To start with, I would like to try to get his blood pressure is under optimal control. I wonder if he is at a point now where we need to consider the addition of minoxidil. Will defer to Nephrology regarding this decision. 2. I will write to increase his Coreg up to a dose of 25 mg twice daily. 3. Once he is optimized on dialysis and his blood pressure is under good control I would like to reassess his symptoms, repeat an echocardiogram and consider a right heart catheterization. 4. Depending on the results of these tests we might reconsider his candidacy for mitral valve repair/replacement. 06/29/17 10:41 Subjective: He underwent dialysis earlier today. He is experiencing a slight headache which he frequently gets following dialysis. He notes no significant chest pain. He has not been up and ambulating yet today. Objective: Vital Signs Temp Pulse Resp BP Pulse Ox 37.4 C 112 H 16 189/115 H 91 L 06/29/17 04:00 06/29/17 07:45 06/29/17 04:00 06/29/17 07:45 06/29/17 04:00 Laboratory Results 06/29/17 04:02 06/29/17 04:02 06/28/17 06/29/17 06/30/17 05:59 05:59 05:59 Intake Total 100 100 Balance 100 100 Physical Exam - Physical Exam General Appearance: WD/WN, no apparent distress Neck: non-tender, full range of motion Respiratory: chest non-tender, lungs clear, normal breath sounds, No respiratory distress, No accessory muscle use, No decreased breath sounds, No crackles Cardiac/Chest: regular rate, rhythm, tachycardia, systolic murmur (1/6 holosystolic murmur at the apex), No edema, No gallop, No JVD, No bradycardia Peripheral Pulses: 2+: carotid (R), carotid (L) Abdomen: non-tender, soft Male Genitalia: deferred Rectal: deferred Neuro/Psych: alert, oriented x 3 ICD10 Worksheet Patient Problems: Problems Problem Status Onset Hyperkalemia Acute Admission for dialysis Acute Left ankle sprain Acute ESRD (end stage renal disease) Acute Hypoxemia Acute Shortness of breath Acute CKD (chronic kidney disease) stage V requiring chronic dialysis Acute Pulmonary edema Acute Anemia Acute CHF (congestive heart failure) Acute
[2017-06-29] MEDS: ISOSORBIDE MONONITRATE 30 MG TAB.SR PO SCH ×2 (10:45→17:25)
[2017-06-29] MEDS: hydrALAZINE 25 MG TAB PO SCH ×3 (10:46→20:59)
[2017-06-29] MEDS: FUROSEMIDE 80 MG TAB PO SCH ×2 (10:46→21:04)
[2017-06-29] MEDS: PROMETHAZINE HCL 25 MG/ML INJ IVP PRN ×2 (14:10→20:56)
[2017-06-29] MEDS ORDERED: SUMAtriptan 50 MG TAB PO ONE (15:15)
[2017-06-29] MEDS ORDERED: ACETAMINOPHEN 500 MG TAB PO ONE (15:16)
[2017-06-29] MEDS ORDERED: DEXAMETHASONE 1.5 MG TAB PO ONE (16:35)
[2017-06-29] MEDS ORDERED: DEXAMETHASONE 4 MG TAB PO ONE (17:15)
[2017-06-29] MEDS: CARVEDILOL 25 MG TAB PO SCH (17:23)
--- NOTE | 2017-06-29 17:27 | ASMTCMCOM ---
CM Note CM Note Notes: Reviewed chart regarding discharge plan, pt's progress. Pt admitted for chronic renal insufficiency w/ dialysis, HTN, and mod-severe mitral regurg. Pt lives w/ his mother (who has 7 other children). Per MD notes, plan is to stabilize pt's HTN and consider a right heart cath to eval for mitral valve repair/replacement. Pt had dialysis today. Discharge plan remains TBD. CM will cont to follow pt. Current Discharge Plan: TBD Date Signed: 06/29/2017 05:27 PM Electronically Signed By:Beti Winkler RN
--- NOTE | 2017-06-29 17:33 | SOAPPROG ---
[place] Progress Note Assessment/Plan: Assessment/Plan: ESRD: on HD MWF. - HD done today. - Will do HD tomorrow for holiday schedule. Anemia: Hb up to 7.7. s/p PRBCs transfused yesterday. Pt also got epo. HTN: Remains uncontrolled. - Carvedilol increased. - Will increase ISMN. - Will also work on fluid removal with HD. NADIA: Phos 7.0, continue pt on calcium carbonate with meals. Subjective: No acute events overnight. Pt had HD today and tolerated well. He reports having a QUIGLEY currently. His breathing feels much better. Objective: Vital Signs Temp Pulse Resp BP Pulse Ox 37.2 C 96 14 164/118 H 88 L 06/29/17 15:47 06/29/17 17:22 06/29/17 15:47 06/29/17 17:22 06/29/17 15:47 Laboratory Results 06/29/17 04:02 06/29/17 04:02 06/28/17 06/29/17 06/30/17 05:59 05:59 05:59 Intake Total 100 100 Output Total 400 Balance 100 100 -400 General: alert and oriented, mild distress Eyes: EOMI, PERRL OP: Clear CV: RRR Resp: nonlabored respirations on RA abd: Soft, NT Ext: no edema BLE Neuro: CN II-XII grossly intact, no asterixis Psych: cooperative ICD10 Worksheet Patient Problems: Problems Problem Status Onset Anemia Acute CHF (congestive heart failure) Acute CKD (chronic kidney disease) stage V requiring chronic dialysis Acute Shortness of breath Acute Admission for dialysis Acute ESRD (end stage renal disease) Acute Hyperkalemia Acute Hypoxemia Acute Left ankle sprain Acute Pulmonary edema Acute
[2017-06-29] MEDS: TOPIRAMATE 25 MG TAB PO SCH (21:03)
[2017-06-30] MEDS ORDERED: DEXAMETHASONE 4 MG TAB PO SCH
[2017-06-30] MEDS: HYDROmorphone HCL/NS/PF 0.4 MG/2 ML SYR IVP PRN ×5 (00:25→17:15)
[2017-06-30] MEDS: ONDANSETRON 4 MG/2 ML VIAL IVP PRN ×2 (00:25→12:25)
[2017-06-30] MEDS: PROMETHAZINE HCL 25 MG/ML INJ IVP PRN ×2 (04:01→17:14)
[2017-06-30] MEDS: LORazepam 1 MG TAB PO PRN ×2 (04:14→09:59)
[2017-06-30] MEDS: HEPARIN 5,000 UNIT/0.5 ML SYR SC SCH ×2 (05:19→15:15)
[2017-06-30 05:40] LABS: % IMMATURE GRANULYOCYTES 0.4 % (0.0-1.1); ABSOLUTE IMMATURE GRANULOCYTES 0.02 10^3/uL (0.00-0.10); ADD DIFF? NO; ADD MORPH? NO; ADD SCAN? NO; ATYPICAL LYMPHOCYTE FLAG 10 (0-99); FRAGMENT RBC FLAG 0 (0-99); HEMATOCRIT 22.7 % (40.0-51.0); HEMOGLOBIN 7.6 g/dL (13.7-17.5); LEFT SHIFT FLG 0 (0-99); LIPEMIA HEMOLYSIS FLAG 80 (0-99); MEAN CELL HEMOGLOBIN 30.2 pg (27.9-34.1); MEAN CELL HEMOGLOBIN CONCENTR. 33.5 g/dL (32.4-36.7); MEAN CELL VOLUME 90.1 fL (81.5-99.8); MEAN PLATELET VOLUME 9.5 fL (8.7-11.7); PLATELET CLUMPS FLAG 0 (0-99); PLATELET COUNT 260 10^3/uL (150-400); RED BLOOD CELL COUNT 2.52 10^6/uL (4.40-6.38); RED CELL DISTRIBUTION WIDTH 13.6 % (11.5-15.2)
[2017-06-30] MEDS: oxyCODONE IR 5 MG TAB PO PRN ×2 (05:42→15:16)
[2017-06-30 05:59] LABS: ALBUMIN 3.5 g/dL (3.5-5.0); ANION GAP 13 mEq/L (8-16); CALCIUM 9.4 mg/dL (8.5-10.4); CARBON DIOXIDE 30 mEq/l (22-31); CHLORIDE 95 mEq/L (97-110); CREATININE 6.5 mg/dL (0.7-1.3); GLOMERULAR FILTRATION RATE 10; GLUCOSE 101 mg/dL (70-100); SODIUM 138 mEq/L (134-144)
[2017-06-30 07:06] VITALS: RESP 15; TEMP 98.5
[2017-06-30] MEDS: CALCIUM CARBONATE 500 MG CHEWABLE TAB PO SCH ×3 (08:16→17:11)
[2017-06-30] MEDS: ACETAMINOPHEN 325 MG TAB PO PRN (08:18)
[2017-06-30] MEDS: CARVEDILOL 25 MG TAB PO SCH ×2 (08:18→17:11)
[2017-06-30] MEDS: FUROSEMIDE 80 MG TAB PO SCH (08:20)
--- NOTE | 2017-06-30 09:31 | SOAPPROG ---
SO[facility] Progress Note Assessment/Plan: Assessment: 26-year-old male with a history of chronic renal insufficiency currently on hemodialysis, refractory hypertension and evidence of moderate to severe mitral regurgitation by echocardiography. He is admitted now with symptoms of exertional dyspnea. In the past he has had issues with compliance related to his hemodialysis and medical management. Currently, it is not entirely clear whether not his mitral regurgitation is causative in his symptoms of dyspnea. Other possibilities include his as of yet poorly controlled hypertension, anemia and possibly suboptimal volume management on dialysis. Yesterday Coreg was increased up to the present dose of 25 mg twice daily. Plan: 1. His blood pressures are improved today. 2. His current medical regiment is a little awkward and may be difficult for him to take as an outpatient. Wonder if he might benefit from discontinuation of the Imdur and hydralazine and, instead, use minoxidil. Other possibilities include the addition of guanfacine. 3. If there are plans for him to be discharged today please let me know I will help facilitate an office visit sometime this coming week. 06/30/17 09:29 Subjective: Notes that he feels much better today. He was able to walk around the foster without limiting symptoms of dyspnea. He is anxious to go home. Objective: Vital Signs Temp Pulse Resp BP Pulse Ox 36.9 C 100 15 148/98 H 93 06/30/17 07:03 06/30/17 08:16 06/30/17 07:03 06/30/17 08:16 06/30/17 07:03 Laboratory Results 06/30/17 03:53 06/30/17 03:53 06/29/17 06/30/17 07/01/17 05:59 05:59 05:59 Intake Total 100 1610 Output Total 400 Balance 100 1210 Physical Exam - Physical Exam General Appearance: WD/WN, no apparent distress Respiratory: lungs clear Cardiac/Chest: regular rate, rhythm, other (1/6 systolic ejection murmur left sternal border; 1/6 holosystolic murmur apex) Peripheral Pulses: 2+: carotid (R), carotid (L) Abdomen: non-tender, soft Male Genitalia: deferred Rectal: deferred Neuro/Psych: alert, oriented x 3 ICD10 Worksheet Patient Problems: Problems Problem Status Onset Anemia Acute CHF (congestive heart failure) Acute CKD (chronic kidney disease) stage V requiring chronic dialysis Acute Shortness of breath Acute Admission for dialysis Acute ESRD (end stage renal disease) Acute Hyperkalemia Acute Hypoxemia Acute Left ankle sprain Acute Pulmonary edema Acute
[2017-06-30] MEDS: ISOSORBIDE MONONITRATE 30 MG TAB.SR PO SCH (09:35)
[2017-06-30] MEDS: hydrALAZINE 25 MG TAB PO SCH ×2 (09:35→15:17)
[2017-06-30 11:10] VITALS: PULSE 94; O2SAT 95
[2017-06-30 15:17] VITALS: BP 154/95
--- NOTE | 2017-06-30 15:18 | GDS ---
[f rep st] DISCHARGE SUMMARY FINAL DIAGNOSES: 1. Dyspnea. 2. Severe mitral regurgitation. 3. End-stage renal disease, on dialysis. 4. Headache. 5. Anemia of chronic kidney disease. 6. Acute on chronic systolic congestion heart failure. 7. Hypertension. 8. Anxiety/depression. PERTINENT STUDIES: Transesophageal echocardiogram performed on 06/28/2017 showing ejection fraction of 55 to 60%, moderate to severe centrally directed mitral regurgitation. HOSPITAL COURSE BY PROBLEM: 1. End-stage renal disease: He has had mild hyperkalemia. I counseled him on a low-potassium diet. He has received multiple rounds of dialysis. 2. Headache: A significant complaint for him. It seems to be worsened by anxiety as well as dialys is. I have given him a short course of oxycodone for now to treat this. We will also try some Benad ryl prior to his dialysis sessions. 3. Severe mitral regurgitation: Cardiology would like to get him as euvolemic as possible, then re- evaluate. He may need surgery though this is unclear. He is stable on room air at the time of disch arge. 4. Hypertension: He is quite hypertensive, very concerning with MR. His blood pressures have been reduced with increase in his antihypertensive. He is currently on Norvasc 10 mg, Coreg 25 twice sana y, Lasix 80 twice daily, hydralazine 25 three times daily, and Imdur 60 daily. Will need to follow h is blood pressures closely as an outpatient. 5. Anxiety: I have given him a short course of Ativan for this. We will try to provide him with an outpatient psychiatrist for followup. 6. He should follow up with Dr. Low soon. He has an appointment in about 2 weeks. [facility] will try to schedule an appointment earlier for him. BILLING: I spent more than 30 minutes on the day of discharge coordinating care. /[id number]/MODL
--- NOTE | 2017-06-30 15:37 | SOAPPROG ---
[facility] Progress Note Assessment/Plan: Assessment/Plan: ESRD: on HD MWF. - Pt seen on HD today. - Pt can resume his regular outpatient HD schedule on discharge. Anemia: Hb up to 7.6. s/p PRBCs transfused two days ago. Pt also got epo. HTN: Remains uncontrolled but better. - Carvedilol increased. - ISMN increased. - Will also work on fluid removal with HD. NADIA: Phos 5.0, continue pt on calcium carbonate with meals. Subjective: No acute events overnight. Pt getting HD now and tolerating fine. He is still having a QUIGLEY. His BP has been a bit better. Pt states that he feels that anxiety plays a big role in his blood pressure, admits that with his heart issues and ESRD, he feels like those are overwhelming and that he shouldn't have to deal with it all at his age. Objective: Vital Signs Temp Pulse Resp BP Pulse Ox 36.9 C 94 15 154/95 H 95 06/30/17 07:03 06/30/17 11:10 06/30/17 11:10 06/30/17 15:17 06/30/17 11:10 Laboratory Results 06/30/17 03:53 06/30/17 03:53 06/29/17 06/30/17 07/01/17 05:59 05:59 05:59 Intake Total 100 1610 Output Total 400 Balance 100 1210 General: alert and oriented, no acute distress Eyes: EOMI, PERRL OP: Clear CV: RRR Resp: nonlabored respirations on RA Abd: Soft, NT Ext: no edema Neuro: CN II-XII grossly intact, no asterixis Psych: cooperative, appropriate mood and affect ICD10 Worksheet Patient Problems: Problems Problem Status Onset Anemia Acute CHF (congestive heart failure) Acute CKD (chronic kidney disease) stage V requiring chronic dialysis Acute Shortness of breath Acute Admission for dialysis Acute ESRD (end stage renal disease) Acute Hyperkalemia Acute Hypoxemia Acute Left ankle sprain Acute Pulmonary edema Acute
--- NOTE | 2017-06-30 17:50 | ASDISCHSUM ---
Discharge Information Plan Status:Home with No Needs Medically Cleared to Leave:06/29/2017 Discharge Date:06/29/2017 CM D/C Disposition:Home, Routine, Self-Care ADT D/C Disposition:Home, Routine, Self-Care Projected Discharge Date:06/29/2017 Transportation at D/C:Family Discharge Delay Reason: Follow-Up Date:06/29/2017 Discharge Slot:3 - 18:01 pm - 12:00 am Final Diagnosis:Chronic renal insufficiency w/ HD, anemia, refractory HTN, mod-severe mitral regurg Placement Information Patient Contact Information Contact Name:JEFFERY Relationship:Mother Address:[address] Work Phone: [facility]:[place] Alternate Phone: [facility]/Zip Code:[place] [address] Email: Financial Information Financial Class: Primary Plan Desc:MEDICARE INPATIENT Primary Plan Number:[id number] Secondary Plan Desc:MEDICAID [place] Secondary Plan Number:[id number] Assessment Information [facility] CM Progress Note CM Note CM Note Notes: Reviewed chart regarding discharge plan, pt's progress. Pt admitted for chronic renal insufficiency w/ dialysis, HTN, and mod-severe mitral regurg. Pt lives w/ his mother (who has 7 other children). Per MD notes, plan is to stabilize pt's HTN and consider a right heart cath to eval for mitral valve repair/replacement. Pt had dialysis today. Discharge plan remains TBD. CM will cont to follow pt. Current Discharge Plan: TBD Date Signed: 06/29/2017 05:27 PM Electronically Signed By:Beti Winkler RN [facility] CM Progress Note CM Note CM Note Notes: Reviewed chart, spoke w/ Dr. Conroy, pt to discharge home today independently w/ family support and no identified needs. Pt received HD today for holiday schedule. Pt to follow up as directed. No IM signed, hospitalization <48 hrs. CM avail for any further issues or concerns. Current Discharge Plan: Home independently w/ family support Date Signed: 06/30/2017 05:49 PM Electronically Signed By:Beti Winkler RN Intervention Information
== END 2017-06-30 18:00 | disposition home or self-care (01) | DRG 304 ==
LOC: F2W 21:27
PROVIDERS: ADMIT Internal Medicine; ATTEND Internal Medicine
PROC: B246ZZ4 Ultrasonography of Right and Left Heart, Transesophageal (ICD-10-PCS; principal; 2017-06-28)
PROC: 30233N1 Transfusion of Nonautologous Red Blood Cells into Peripheral Vein, Percutaneous Approach (ICD-10-PCS; 2017-06-28)
PROC: 5A1D70Z Performance of Urinary Filtration, Intermittent, Less than 6 Hours Per Day (ICD-10-PCS; 2017-06-28)
DX: I16.0 Hypertensive urgency (principal); I13.0 Hypertensive heart and chronic kidney disease with heart failure and stage 1 through stage 4 chronic kidney disease, or unspecified chronic kidney disease; N18.9 Chronic kidney disease, unspecified; I50.23 Acute on chronic systolic (congestive) heart failure; D63.1 Anemia in chronic kidney disease; E87.5 Hyperkalemia; I34.0 Nonrheumatic mitral (valve) insufficiency; Q60.0 Renal agenesis, unilateral; F41.8 Other specified anxiety disorders; Z99.2 Dependence on renal dialysis; F17.210 Nicotine dependence, cigarettes, uncomplicated
CPT/HCPCS: 96374; J0360; J1170; J1200; J2250; J2405; J2550; J3010; P9016

== ENCOUNTER 2017-07-08 13:02 | Inpatient (IN) | payer OTHER, MEDICAID ==
--- NOTE | 2017-07-08 13:17 | CPEKG ---
Heart Rate: 82 RR Interval: 732 P-R Interval: 128 QRSD Interval: 82 QT Interval: 404 QTC Interval: 472 P [place]: 23 QRS [place]: -5 T Wave [place]: 84 EKG Severity - BORDERLINE ECG - EKG Impression: SINUS RHYTHM EKG Impression: BORDERLINE PROLONGED QT INTERVAL Electronically Signed By: Chato Kiran 08-Jul-2017 13:34:09
[2017-07-08] MEDS ORDERED: ACETAMINOPHEN 325 MG TAB PO ONE (13:30)
[2017-07-08 13:33] LABS: % IMMATURE GRANULYOCYTES 0.9 % (0.0-1.1); ABSOLUTE IMMATURE GRANULOCYTES 0.04 10^3/uL (0.00-0.10); ADD DIFF? NO; ADD MORPH? NO; ADD SCAN? NO; ATYPICAL LYMPHOCYTE FLAG 30 (0-99); FRAGMENT RBC FLAG 0 (0-99); HEMATOCRIT 22.2 % (40.0-51.0); HEMOGLOBIN 7.8 g/dL (13.7-17.5); LEFT SHIFT FLG 0 (0-99); LIPEMIA HEMOLYSIS FLAG 90 (0-99); MEAN CELL HEMOGLOBIN 31.1 pg (27.9-34.1); MEAN CELL HEMOGLOBIN CONCENTR. 35.1 g/dL (32.4-36.7); MEAN CELL VOLUME 88.4 fL (81.5-99.8); MEAN PLATELET VOLUME 9.1 fL (8.7-11.7); PLATELET CLUMPS FLAG 0 (0-99); PLATELET COUNT 199 10^3/uL (150-400); RED BLOOD CELL COUNT 2.51 10^6/uL (4.40-6.38); RED CELL DISTRIBUTION WIDTH 14.5 % (11.5-15.2)
--- NOTE | 2017-07-08 13:33 | EDPHY ---
H & P Time Seen by Provider: 07/08/17 13:21 HPI/ROS: CHIEF COMPLAINT: Syncope HISTORY OF PRESENT ILLNESS: Patient was at dialysis today and went to the bathroom after he was completed. He remembers walking out of the bathroom and the next thing he remembers was lying on the ground looking up at everybody. He had a syncopal episode and was brought in by EMS. He presents now with a headache and some right-sided forehead pain. He does not have neck pain or weakness or numbness in extremities. Syncope not associated with chest pain or cough or fever. He does describe exertional shortness of breath for the last 4 weeks. That is not different today. REVIEW OF SYSTEMS: Eye: Says she has some blurriness or the vision of both eyes. ENT: no sore throat Cardiac: No chest pain Pulmonary: Not coughing Abdomen: no vomiting, diarrhea, abdominal pain Musculoskeletal: no back pain or neck pain Skin: no rash Neuro: no headache Constitutional: no fever : no urinary symptoms A comprehensive 10 point review of systems is otherwise negative aside from elements mentioned in the history of present illness. PAST MEDICAL HISTORY: Includes dialysis and end-stage renal disease, cardiomyopathy with MR and ejection fraction 45%, hypertension, anemia, depression, secondary hyperparathyroid. Social history: Born in [place]. Smoker. General Appearance: Alert and conversant, cooperative. Eyes: No scleral icterus. ENT, Mouth: Normal mucous membranes. Respiratory: Normal respiratory effort, breath sounds equal, lungs are clear to auscultation. Cardiovascular: Regular rate and rhythm. 1/6 murmur. Left forearm fistula has a thrill. Gastrointestinal: Abdomen is soft and non tender. Neurological: Alert and oriented x3. Normally conversant. Face symmetric, normal movement and sensation in all extremities. Skin: Warm and dry, no rashes. Musculoskeletal: No peripheral edema and no joint swelling. Psychiatric: Not agitated. Emergency Department course/MDM: Plan for EKG, labs to include CBC chemistries troponin and D-dimer. CT head for head injury in a patient with compromise platelets on dialysis and higher risk for bleeding, oral acetaminophen for headache. 1436: Results discussed, elevated D-dimer and CT angio discussed and consented. 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 CT head negative per radiologist. 1544: CT shows no pulmonary embolism per Dr. Torres, pulmonary edema, pericardial effusion. 1637: Yas Santo for cardiology. Admission for syncope, pulmonary edema, possible worsening valve function. Cardiology and probable CT surgery consultation. Smoking Status: Current every day smoker Constitutional: Initial Vital Signs Temperature (C) 36.8 C 07/08/17 13:10 Heart Rate 92 07/08/17 13:10 Respiratory Rate 18 07/08/17 13:10 Blood Pressure 185/112 H 07/08/17 13:10 O2 Sat (%) 99 07/08/17 13:10 O2 Delivery Mode Nasal Cannula O2 (L/minute) 2 Allergies/Adverse Reactions: No Known Allergies Allergy (Verified 06/21/17 06:24) Home Medications: Medication Instructions Recorded Furosemide [Lasix 80 MG (*)] 80 mg PO BID 06/21/17 Topiramate [Topamax 25MG (*)] 25 mg PO HS 06/21/17 Acetaminophen [Tylenol 325mg (*)] 650 mg PO Q4 PRN tab 06/30/17 Carvedilol [Coreg (*)] 25 mg PO BIDMEAL #60 tab 06/30/17 Isosorbide Mononitrate [Imdur 30 60 mg PO DAILY #60 tab.sr 06/30/17 mg (*)] LORazepam [Ativan (*)] 1 mg PO Q4 PRN #30 tab 06/30/17 amLODIPine BESYLATE [Norvasc 10 mg 10 mg PO DAILY #30 tab 06/30/17 (*)] hydrALAZINE [Apresoline] 25 mg PO TID #90 tab 06/30/17 Metoprolol Succinate 25 mg PO DAILY 07/08/17 Medical Decision Making - Diagnostics EKG Interpretation: 12-lead EKG interpreted by me; official reading is in trace master. My interpretation is sinus rhythm rate 80 to, no ischemic changes Imaging Results: Imaging Impressions Head CT 07/08/17 13:29 Impression: 1. No acute intracranial findings. 2. Periodontal disease. Findings discussed with Chato Kiran on July 08, 2017 at 1428 hours. Chest/Thorax CTA 07/08/17 14:36 Impression: 1. No pulmonary embolism. 2. Diffuse pulmonary infiltrates bilaterally, particularly in the lower lobes. 3. Pulmonary edema, small pleural effusion, small pericardial effusion, and diffuse subcutaneous edema. All these findings suggest volume overload. 4. Enlarged spleen, nonspecific. 5. With conservative treatment, follow-up CT scan is suggested. Findings and recommendations discussed with Dr. Chato Kiran at 1535 hour, 2016. Final report concurs with initial preliminary interpretation. Differential Diagnosis: Differential diagnosis considered for syncope including but not limited to vasovagal syncope, arrhythmia, dehydration, and blood loss. Consult/Admit Bed Type: [facility] for [place] 1458, sbp 190 at dialysis; Marycarmen 1617 - Data Points Medications Given: Carvedilol (Coreg) 25 mg PO BIDMEAL BRANDY Stop: 01/04/18 17:59 Last Admin: 07/08/17 19:05 Dose: 25 mg Lorazepam (Ativan) 1 mg PO Q4 PRN PRN Reason: Anxiety, Able to Take PO Stop: 01/04/18 17:15 Last Admin: 07/08/17 18:13 Dose: 1 mg Discontinued Medications Acetaminophen (Tylenol) 650 mg PO EDNOW ONE Stop: 07/08/17 13:31 Last Admin: 07/08/17 14:10 Dose: 650 mg Furosemide (Lasix Injection) 80 mg IVP ONCE ONE Stop: 07/08/17 17:19 Last Admin: 07/08/17 18:12 Dose: 80 mg Oxycodone HCl (Oxycodone Ir) 10 mg PO EDNOW ONE Stop: 07/08/17 14:45 Last Admin: 07/08/17 15:04 Dose: 10 mg Oxycodone HCl (Oxycodone Ir) 15 mg PO ONCE ONE Stop: 07/08/17 17:21 Last Admin: 07/08/17 18:45 Dose: 10 mg Departure - Departure Disposition: [facility] Inpatient Acute Clinical Impression: Syncope Qualifiers: Syncope type: unspecified Qualified Code(s): R55 - Syncope and collapse Pulmonary edema Qualifiers: Chronicity: chronic Qualified Code(s): J81.1 - Chronic pulmonary edema Condition: Fair
[2017-07-08 13:42] LABS: ALANINE AMINOTRANSFERASE 32 IU/L (21-72); ALBUMIN 3.8 g/dL (3.5-5.0); ALKALINE PHOSPHATASE 61 IU/L (38-126); ANION GAP 13 mEq/L (8-16); ASPARTATE AMINOTRANSFERASE 13 IU/L (17-59); BILIRUBIN,TOTAL 0.3 mg/dL (0.1-1.4); CALCIUM 9.5 mg/dL (8.5-10.4); CARBON DIOXIDE 33 mEq/l (22-31); CHLORIDE 91 mEq/L (97-110); CREATININE 5.3 mg/dL (0.7-1.3); GLOMERULAR FILTRATION RATE 13; GLUCOSE 73 mg/dL (70-100); SODIUM 137 mEq/L (134-144); TOTAL PROTEIN 6.4 g/dL (6.3-8.2)
[2017-07-08] MEDS ORDERED: oxyCODONE IR 5 MG TAB PO ONE ×2 (14:44→17:20)
[2017-07-08] MEDS ORDERED: IOPAMIDOL (ISOVUE 370) 100 ML BTL IV ONE (14:57)
[2017-07-08] MEDS ORDERED: ACETAMINOPHEN 325 MG TAB PO PRN (17:13)
[2017-07-08] MEDS ORDERED: ONDANSETRON 4 MG/2 ML VIAL IVP PRN (17:13)
[2017-07-08] MEDS ORDERED: ONDANSETRON DISINTEGRATING 4 MG TAB PO PRN (17:13)
[2017-07-08] MEDS ORDERED: FUROSEMIDE 100 MG/10 ML VIAL IVP ONE (17:18)
--- NOTE | 2017-07-08 18:01 | GHP ---
[f rep st] HISTORY AND PHYSICAL DATE OF ADMISSION: 07/08/2017 HISTORY OF PRESENT ILLNESS: The patient is a 26-year-old gentleman with a history of severe mitral r egurgitation and end-stage renal disease as well, admitted to the medical service because of a syncop al episode from his hemodialysis. The patient has felt well. He was discharged from this hospital o n the , gets dyspneic and tachycardic with any exertion. He could not walk a city block on flat blocks. He has been going to dialysis and taking his medications as prescribed. He felt well prior to dialys is and then subsequently had a syncopal episode and woke up staring at everyone around him. He bange d his head. He has chronic headaches associated with dialysis. He is complaining of a headache. He has not had lower extremity edema. He is able to lie somewhat flat, but he does have pretty consist ent heart failure symptoms. He has been tried on medical therapy, including hydralazine, beta blocke r, and diuretic therapy with recurrent admissions to this hospital. He denies problems with his AV fistula. No fever, chills. No nausea, vomiting. REVIEW OF SYSTEMS: Complete 10-point review of systems was conducted, negative, except as noted in t he HPI. PAST MEDICAL HISTORY: 1. End-stage renal disease secondary to solitary kidney. 2. Severe mitral regurgitation. 3. He has also had a left upper extremity AV fistula. 4. Anemia of chronic renal disease. FAMILY HISTORY: Reviewed and unremarkable. There is no end-stage renal disease. SOCIAL HISTORY: Smoking history: He smokes a cigarette or two every day. He lives with his mother in [place]. ALLERGIES: No known drug allergies. HOME MEDICATIONS: Tylenol, Lasix 80 b.i.d., amlodipine, carvedilol 25, hydralazine, isosorbide monon itrate, lorazepam, metoprolol, Topiramate. PHYSICAL EXAMINATION: PRESENTING VITALS: Temp 36.8, blood pressure 185/112, pulse 92, breathing 18 times a minute, 98% on room air. GENERAL: No acute distress. HEENT: Sclerae anicteric. Oropharyn x clear. Mucous membranes are moist. NECK: Supple, without lymphadenopathy. There is elevated JVD . HEART: His heart is tachycardic, S1, S2 with a diastolic murmur that is somewhat difficult to hea r. LUNGS: Clear to auscultation bilaterally. ABDOMEN: Soft, nontender, nondistended. There is no left upper quadrant tenderness. LOWER EXTREMITIES: No edema. Calves nontender. SKIN: Without ra sh. NEUROLOGIC: Exam is nonfocal. LABORATORY DATA: White count 4.5. Hemoglobin and hematocrit are 7.8 and 22.2. Platelets are normal at 199. D-dimer is 0.6. Coags have historically been normal. Sodium 137, potassium 4.0, chloride 91, bicarb 32, BUN 21, creatinine 5.3. Glucose is 73. Troponin is 0.020. A noncontrast head CT shows no acute problems. There is periodontal disease. EKG interpreted by me shows sinus at 82 with left axis deviation, normal intervals. No ST or T-wave changes. Additionally , the EMS rhythm strip was also sinus. He has a CTA of his chest. I have reviewed/interpreted the i mages, showing no pulmonary embolism, pulmonary edema and some splenomegaly. He has never had a CT b efore. I discussed the case with Dr. Kaufman, with Dr. Chato Kiran, Renetta Bernal, and Dr. Laney Johnson. ASSESSMENT/PLAN: A 26-year-old gentleman with severe mitral regurgitation, end-stage renal disease, and chronic valvular heart failure who presents with syncope. 1. Syncope. I suspect this is perhaps transient hypovolemia in the setting of 3 L volume removed. He does not appear to have an acute coronary syndrome. Will monitor on telemetry. He remains chroni leti volume overloaded, although he may be relatively dry for him at the moment. 2. Splenomegaly. I am not sure what to make of this. He does not have B symptoms suggestive of a n eoplastic process. I think it could be followed. 3. Mitral regurgitation. This is severe and appears to have failed medical therapy. Dr. Johnson plans to speak with Dr. Farr of cardiac surgery to hopefully initiate the process of valve replacement. 4. Periodontal disease. If the patient is going to get a valve, he might need some teeth pulled. W paul can perform a dental consult tomorrow. 5. Volume overload. I will diurese him while here. 6. Hypertension. I think this is chronic volume overload in the setting of a patient who makes limi galina urine with mitral regurgitation. We will continue his medications as prescribed. 7. Prophylaxis: SCDs for now. 8. Disposition: Full code. /[id number]/MODL
[2017-07-08] MEDS: LORazepam 1 MG TAB PO PRN (18:13)
[2017-07-08] MEDS: CARVEDILOL 25 MG TAB PO SCH (19:05)
[2017-07-08] MEDS: hydrALAZINE 25 MG TAB PO SCH (21:02)
[2017-07-08] MEDS: TOPIRAMATE 25 MG TAB PO SCH (21:03)
[2017-07-08] MEDS: oxyCODONE IR 15 MG TAB PO PRN (21:05)
[2017-07-08] MEDS: HYDROmorphone HCL/NS/PF 0.4 MG/2 ML SYR IVP PRN (23:10)
[2017-07-09] MEDS: HYDROmorphone HCL/NS/PF 0.4 MG/2 ML SYR IVP PRN ×4 (00:02→21:00)
[2017-07-09] MEDS: LORazepam 1 MG TAB PO PRN ×2 (00:03→08:28)
[2017-07-09 05:50] LABS: ANION GAP 16 mEq/L (8-16); CALCIUM 8.2 mg/dL (8.5-10.4); CARBON DIOXIDE 25 mEq/l (22-31); CHLORIDE 94 mEq/L (97-110); CREATININE 6.9 mg/dL (0.7-1.3); GLOMERULAR FILTRATION RATE 10; GLUCOSE 69 mg/dL (70-100); POTASSIUM 5.8 mEq/L (3.5-5.2); SODIUM 135 mEq/L (134-144)
[2017-07-09] MEDS: oxyCODONE IR 15 MG TAB PO PRN ×3 (07:22→19:57)
--- NOTE | 2017-07-09 08:27 | SOAPPROG ---
SOAP Progress Note Assessment/Plan: Assessment:Plan: ESRD-had Hd yesterday -syncope after treatment after going to bathroom -reports 3kg over 4 hours of treatment -hyperkalemic today -still with chronic volume overload -suspect he is having issues with rate of fluid removal Hyperkalemia-as above -keep on K restricted diet Volume overload with HTN-diffuse pulmonary infiltrates on CT consistent with pulmonary edema -daily Hd while in hospital Access-stable 07/09/17 08:28 Subjective: stable overnite Objective: Vital Signs Temp Pulse Resp BP Pulse Ox 36.6 C 85 16 156/107 H 96 07/09/17 07:16 07/09/17 07:16 07/09/17 07:16 07/09/17 07:16 07/09/17 07:16 Laboratory Results 07/08/17 Unknown 07/09/17 04:31 07/08/17 07/09/17 07/10/17 05:59 05:59 05:59 Intake Total 250 Balance 250 Physical Exam - Physical Exam General Appearance: WD/WN, alert, no apparent distress EENT: normal ENT inspection Neck: normal inspection Respiratory: decreased breath sounds, other (coarse throughout) Cardiac/Chest: regular rate, rhythm, systolic murmur Abdomen: normal bowel sounds, non-tender, soft, No organomegaly Skin: normal color, warm/dry, No cyanosis Extremities: No swelling Neuro/Psych: no motor/sensory deficits, alert, normal mood/affect, oriented x 3 ICD10 Worksheet Patient Problems: Problems Problem Status Onset Pulmonary edema Acute Syncope Acute Admission for dialysis Acute Anemia Acute CHF (congestive heart failure) Acute CKD (chronic kidney disease) stage V requiring chronic dialysis Acute ESRD (end stage renal disease) Acute Hyperkalemia Acute Hypertensive urgency Acute Hypoxemia Acute Left ankle sprain Acute Shortness of breath Acute
[2017-07-09] MEDS: ISOSORBIDE MONONITRATE 30 MG TAB.SR PO SCH (08:28)
[2017-07-09] MEDS: FUROSEMIDE 100 MG/10 ML VIAL IVP SCH ×2 (08:28→16:54)
[2017-07-09] MEDS ORDERED: METOPROLOL SUCCINATE XR 25 MG TAB PO SCH (09:00)
[2017-07-09] MEDS ORDERED: ACETAMINOPHEN 325 MG TAB PO SCH (09:00)
--- NOTE | 2017-07-09 09:11 | HOSPPROG ---
Hospitalist Progress Note Assessment/Plan: 26 yo M severe MR, esrd admitted w syncope, volume overload MR: being evaluated for valve replacement he has failed conservative management esrd: HD yesterday syncope w volume removal renal diet hyperkalemia: renal diet HD in AM necrotic teeth: oral surgery eval face CT today volume overload: has pulm edema and splenomegaly remarkably no tonio does make urine so continue IV diuresis QUIGLEY: suspect htn related scheduled tylenol trial of neurontin proph: SC heparin dispo: inpt acutely ill Subjective: case d/w dr hughes. c/o QUIGLEY Objective: Vital Signs Temp Pulse Resp BP Pulse Ox 36.6 C 85 16 156/107 H 96 07/09/17 07:16 07/09/17 07:16 07/09/17 07:16 07/09/17 07:16 07/09/17 07:16 Laboratory Results 07/08/17 Unknown 07/09/17 04:31 07/08/17 07/09/17 07/10/17 05:59 05:59 05:59 Intake Total 250 Balance 250 - Physical Exam Constitutional: no apparent distress, appears nourished Eyes: PERRL, anicteric sclera Ears, Nose, Mouth, Throat: moist mucous membranes, hearing normal Cardiovascular: regular rate and rhythym, systolic murmur Respiratory: no respiratory distress, no rales or rhonchi Gastrointestinal: normoactive bowel sounds, soft, non-tender abdomen Genitourinary: no bladder fullness, No heller in urethra Skin: warm, normal color Musculoskeletal: full muscle strength Neurologic: AAOx3, sensation intact bilaterally Psychiatric: interacting appropriately, not anxious Lymph, Heme, Immunologic: no cervical LAD ICD10 Worksheet Patient Problems: Problems Problem Status Onset Pulmonary edema Acute Syncope Acute Admission for dialysis Acute Anemia Acute CHF (congestive heart failure) Acute CKD (chronic kidney disease) stage V requiring chronic dialysis Acute ESRD (end stage renal disease) Acute Hyperkalemia Acute Hypertensive urgency Acute Hypoxemia Acute Left ankle sprain Acute Shortness of breath Acute
--- NOTE | 2017-07-09 09:37 | PDCARPN ---
Cardiology Progress Note Assessment/Plan: Assessment/plan: 26-year-old male with end-stage renal disease on dialysis. This is related to solitary kidney. Has a nonischemic cardiomyopathy with an ejection fraction of approximately 40%, severe mitral regurgitation, hypertension, and chronic anemia. He has had multiple admissions over the past several weeks for heart failure. He was readmitted on July 08 with an episode of syncope that occurred shortly after dialysis. This is of unclear etiology, but may be related to fluid shifts after dialysis. Troponins have been negative. He also continues to have class 3 heart failure symptoms. 1. Heart failure: Systolic, acute on chronic. This is related to a combination of mitral regurgitation, hypertensive cardiomyopathy. Reports medication compliance. At this point, he is quite limited in activity and I do think that his mitral regurgitation is severely impacting his ability to get dialysis and have relatively normal quality of life. I have discussed the case with Dr. Smooth Farr, and he has seen the patient. Consideration for mitral valve surgery, likely replacement, later this week after dental issues have been sorted out. Continue carvedilol, Lasix, afterload reduction with hydralazine and Imdur. I have called the on-call provider covering for the patient's outpatient spring fitter who is Dr. Deep Rawls. It is not clear why the patient is not on an Russ inhibitor, and I think this would benefit him in the setting of severe mitral regurgitation. 2. Hypertension: Improved control today. He was quite hypertensive upon admission. Continue current medical therapy, consider RUSS-inhibitor after discussion with his outpatient spring fitter. There may have been an issue in the past with hyperkalemia. 3. Mitral regurgitation: Severe. I reviewed serial echocardiograms. Overall his valve appears fairly structurally normal, but there is some myxomatous change. It is likely that his mitral regurgitation is partly related to his LV dysfunction, but I think there is also some primary valvular pathology. Consideration for mitral valve surgery as detailed per 1. 4. Anemia: This is chronic. Likely related to his renal disease. In the past he has received transfusions and Depo. Will defer to Nephrology. He denies any active bleeding. Certainly, his anemia is contributing to his exertional dyspnea. 5. Periodontal disease: This was seen on head CT. Oral surgery consult pending. This would need to be evaluated and managed prior to mitral valve surgery. 6. Check TSH as he has not had a TSH in several months. Mild exophthalmos 07/09/17 09:46 Subjective: Jorge continues to have significant exertional dyspnea as well as PND. His activity has been very limited over the past several months. He has not had palpitations or chest pain. He does not recall the events preceding his syncopal episode after dialysis yesterday. He does report that his blood pressure was actually high after dialysis. He reports medication compliance. Reviewed/Discussed With: hospitalist (Dr. Sherman) Objective: Vital Signs (8 Hrs) Temp Pulse Resp BP Pulse Ox 07/09/17 07:16 36.6 C 85 16 156/107 H 96 07/09/17 04:58 36.8 C 83 16 151/89 H 94 Intake/Output (24 Hrs) 07/08/17 07/09/17 07/10/17 05:59 05:59 05:59 Intake Total 250 Balance 250 Intake: Oral (ml) 250 Other: Weight 70.8 kg Intake Quantity No Sufficient Number of Voids Toilet 1 No acute distress. JVP 12 cm of water. Regular rate and rhythm with a 2/6 holosystolic murmur at the apex with radiation to the axilla. Lungs clear auscultation bilaterally without wheezes rhonchi or rales abdomen is soft and nontender. I do not appreciate hepatosplenomegaly or masses. Extremities are warm well perfused without cyanosis clubbing or edema neuro alert and oriented x3 without gross focal neurologic deficits. Result Diagrams: 07/08/17 Unknown 07/09/17 04:31 Cardiac Labs: Cardiac Lab Results (72 Hrs) 07/09/17 07/08/17 07/08/17 04:31 Unknown 21:43 Troponin I 0.020 0.020 0.025 EKG: NSR. Telemetry: NSR Echocardiogram: I have reviewed echocardiogram from May and transesophageal echocardiogram from earlier this month as well as the patient's coronary angiogram. He does not have flow-limiting coronary disease. LV ejection fraction 40% with severe mitral regurgitation and moderate pulmonary hypertension. RV size and systolic function are normal. ICD10 Worksheet Patient Problems: Problems Problem Status Onset Pulmonary edema Acute Syncope Acute Admission for dialysis Acute Anemia Acute CHF (congestive heart failure) Acute CKD (chronic kidney disease) stage V requiring chronic dialysis Acute ESRD (end stage renal disease) Acute Hyperkalemia Acute Hypertensive urgency Acute Hypoxemia Acute Left ankle sprain Acute Shortness of breath Acute
[2017-07-09] MEDS: hydrALAZINE 25 MG TAB PO SCH ×3 (10:11→20:49)
[2017-07-09] MEDS: GABAPENTIN 100 MG CAP PO SCH ×3 (10:11→20:49)
[2017-07-09] MEDS: CARVEDILOL 25 MG TAB PO SCH ×2 (10:11→18:51)
[2017-07-09] MEDS: ACETAMINOPHEN 500 MG TAB PO SCH ×3 (10:12→20:50)
--- NOTE | 2017-07-09 11:21 | PDMN ---
Medical Necessity Medical necessity: est los>2mn for syncope likely r/t transient hypovolemia, splenomegaly, severe MR failing medical rx, and periodontal disease; admit for IV diuresis, CV surgery consult for possible MVR, and dental consult for possible dental extraction; comorbid ESRD; per order and H&P 07/08/17
[2017-07-09] MEDS ORDERED: IOPAMIDOL (ISOVUE-300) 100 ML BTL ONE (12:44)
--- NOTE | 2017-07-09 16:12 | ASMTCMCOM ---
CM Note CM Note Notes: 07/09/2017 Case Management Note Reviewed chart, spoke w/RN. Attempted to meet w/pt but unable d/t dialysis today. Case management d/c poc: To be determined. Yeni Mullins consult requested per RN. There are no PT or OT evals at this time. Surgery is planned for this admission. Case Management to follow and will meet w/pt on Saturday. Date Signed: 07/09/2017 04:12 PM Electronically Signed By:Lindy Iabrra RN
[2017-07-09] MEDS: LISINOPRIL 10 MG TAB PO SCH (16:53)
--- NOTE | 2017-07-09 18:25 | SOAPPROG ---
SOAP Progress Note Assessment/Plan: s: Asked to consult on this 26 yo wm admitted for syncope after dialysis. ESRD, in fluid overload and in need of valve replacement. Asked to consult for extraction of periodontally involved teeth and carious teeth Patient states " they don't really hurt, but they cut the inside of my mouth alot" o: I/O exam shows decay on # 1, 5, 14, 15, 16, 17, 18, 19, 30, 31, 32- CT scan taken his afternoon correlates with this exam. No jerardo abscesses noted, no gross mobility of the teeth in the mouth. # 11 with a recent extraction socket, no sign of jerardo infection intra or extraorally a/p 26 with ESRD and urgent need for valve replacement and carious/perio involved teeth 1) NPO past midnight 2) Anesthesia consult - plan to take to OR for Ext of above teeth GA/Mac sedation. Will DW Anesthesia. 3) plan to take to OR for extractions at 1 pm jul 09 Mateusz Echevarriamissy [facility] [phone] [facility] [phone] office 07/09/17 18:18 Objective: Vital Signs Temp Pulse Resp BP Pulse Ox 36.7 C 91 17 171/111 H 93 07/09/17 16:57 07/09/17 16:57 07/09/17 16:57 07/09/17 16:57 07/09/17 16:57 Laboratory Results 07/08/17 Unknown 07/09/17 04:31 07/08/17 07/09/17 07/10/17 05:59 05:59 05:59 Intake Total 250 Balance 250 ICD10 Worksheet Patient Problems: Problems Problem Status Onset Hyperkalemia Acute Admission for dialysis Acute Left ankle sprain Acute ESRD (end stage renal disease) Acute Hypoxemia Acute Shortness of breath Acute CKD (chronic kidney disease) stage V requiring chronic dialysis Acute Pulmonary edema Acute Anemia Acute CHF (congestive heart failure) Acute Hypertensive urgency Acute Syncope Acute
[2017-07-09] MEDS: TOPIRAMATE 25 MG TAB PO SCH (19:57)
--- NOTE | 2017-07-09 21:31 | SOAPPROG ---
JASON Progress Note Assessment/Plan: Assessment: 26 yo old with cardiomyopathy and ESRD presents for dental extraction surgery. Plan: Mr. Perry presents for dentral extraction surgery. His ongoing issues are predominantly his ESRD, LV dysfunction and severe MR. This AM K+ was 5.8 but he did received dialysis this afternoon. Assuming the K+ returns to normal on tomorrow's recheck, the patient will be as medically optimized for the planned procedure as he can be and I see no reason to delay surgery. The patient is chronically volume overloaded and afterload reduction has already been initiated per Dr. Johnson's recommendations. Regarding the Hgb of 7.8, I believe this is chronically low and, as Laney Johnson suggested, is probably due to his ESRD. I would not transfuse at this time nor would recommend it prior to his procedure but I would differ this decision to the primary team. Thank you for the opportunity to participate in the care of this patient. Please call with questions or concerns; [phone]. 07/09/17 21:31 07/09/17 21:40 Subjective: I was asked to evaluate Mr. Alexander in consideration for optimization for a scheduled dental extraction surgery on 07/10/[address] Fritz. Patient is a 26-yo male with cardiomyopathy , severe MR and ESRD. He reportedly has been recommended to receive mitral valve replacement but this procedure is on hold due to the patient's need for dental extractions. He is currently admitted as an in-patient for acute exacerbation of his cardiomyopathy. Patient was seen and examined on the floor. He was in no acute distress with no current complaints. 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 Perry to receive dialysis 3x/wk for the last 4-years. The patient has non-oliguric renal failure but he still apparently gets volume overloaded which tends to exacerbate his left ventricular systolic dysfunction (LVEF ~40%). Please see the note by Dr. Laney Johnson for a greater description of his cardiac considerations. The patient denies any IV drug use. He endorses recent decrease in exercise capacity but is still able to climb a flight of stairs without getting short of breath. No problems with anesthesia in the past. He received dialysis this afternoon after morning labs (K+ 5.8). Objective: Vital Signs Temp Pulse Resp BP Pulse Ox 36.5 C 97 16 149/101 H 97 07/09/17 20:00 07/09/17 20:00 07/09/17 20:00 07/09/17 20:00 07/09/17 20:00 Laboratory Results 07/08/17 Unknown 07/09/17 04:31 07/08/17 07/09/17 07/10/17 05:59 05:59 05:59 Intake Total 250 Balance 250 Gen: NAD, O & O x3 CV: Regular pulses Resp: Decreased BS bilateral bases Skin: warm, no pedal edema ICD10 Worksheet Patient Problems: Problems Problem Status Onset Pulmonary edema Acute Syncope Acute Admission for dialysis Acute Anemia Acute CHF (congestive heart failure) Acute CKD (chronic kidney disease) stage V requiring chronic dialysis Acute ESRD (end stage renal disease) Acute Hyperkalemia Acute Hypertensive urgency Acute Hypoxemia Acute Left ankle sprain Acute Shortness of breath Acute
[2017-07-10 04:43] LABS: ANION GAP 12 mEq/L (8-16); CALCIUM 8.6 mg/dL (8.5-10.4); CARBON DIOXIDE 28 mEq/l (22-31); CHLORIDE 96 mEq/L (97-110); GLOMERULAR FILTRATION RATE 11; GLUCOSE 80 mg/dL (70-100); POTASSIUM 5.3 mEq/L (3.5-5.2); SODIUM 136 mEq/L (134-144)
[2017-07-10] MEDS: ACETAMINOPHEN 500 MG TAB PO SCH ×3 (05:55→21:24)
[2017-07-10] MEDS: HYDROmorphone HCL/NS/PF 0.4 MG/2 ML SYR IVP PRN ×4 (07:50→16:03)
[2017-07-10] MEDS: FUROSEMIDE 100 MG/10 ML VIAL IVP SCH ×2 (07:59→17:12)
[2017-07-10] MEDS: CARVEDILOL 25 MG TAB PO SCH ×2 (08:00→17:18)
[2017-07-10] MEDS: LISINOPRIL 10 MG TAB PO SCH (08:01)
[2017-07-10] MEDS: GABAPENTIN 100 MG CAP PO SCH ×3 (08:01→21:24)
[2017-07-10] MEDS: hydrALAZINE 25 MG TAB PO SCH (08:01)
[2017-07-10] MEDS: ISOSORBIDE MONONITRATE 30 MG TAB.SR PO SCH (08:02)
--- NOTE | 2017-07-10 11:03 | PDCARPN ---
Cardiology Progress Note Assessment/Plan: Assessment/plan: 26-year-old male with end-stage renal disease on dialysis. This is related to solitary kidney. Has a nonischemic cardiomyopathy with an ejection fraction of approximately 40%, severe mitral regurgitation, hypertension, and chronic anemia. He has had multiple admissions over the past several weeks for heart failure. He was readmitted on July 08 with an episode of syncope that occurred shortly after dialysis. This is of unclear etiology, but may be related to fluid shifts after dialysis. Troponins have been negative. He also continues to have class 3 heart failure symptoms. 1. Heart failure: Systolic, acute on chronic. This is related to a combination of mitral regurgitation, hypertensive cardiomyopathy. Reports medication compliance. At this point, he is quite limited in activity and I do think that his mitral regurgitation is severely impacting his ability to get dialysis and have relatively normal quality of life. I have discussed the case with Dr. Smooth Farr, and he has seen the patient. Consideration for mitral valve surgery, likely replacement, later this week after dental issues have been sorted out. Continue carvedilol, Lasix, afterload reduction with imdur; increase hydralazine. MARIZOL-I started 07/09. Potassium stable. Follow this closely. 2. Hypertension: Improved control today. He was quite hypertensive upon admission. 3. Mitral regurgitation: Severe. I reviewed serial echocardiograms. Overall his valve appears fairly structurally normal, but there is some myxomatous change. It is likely that his mitral regurgitation is partly related to his LV dysfunction, but I think there is also some primary valvular pathology. Consideration for mitral valve surgery as detailed per #1. 4. Anemia: This is chronic. Likely related to his renal disease. In the past he has received transfusions. He does get EPO with HD. Will defer to Nephrology. He denies any active bleeding. Certainly, his anemia is contributing to his exertional dyspnea. Send iron studies. 5. Periodontal disease: This was seen on head CT. Appreciate oral surgery consult pending. Extractions today. 6. TSH mildly elevated; follow up as outpt. 07/10/17 11:18 Subjective: Jorge has a severe QUIGLEY post HD; this is a chronic issue for him. No SOB. Stable GAMBINO. Reviewed/Discussed With: hospitalist Objective: Vital Signs (8 Hrs) Temp Pulse Resp BP Pulse Ox 07/10/17 08:00 86 178/117 H 07/10/17 04:00 36.6 C 91 16 153/105 H 95 Intake/Output (24 Hrs) 07/09/17 07/10/17 07/11/17 05:59 05:59 05:59 Intake Total 250 200 Balance 250 200 Intake: Oral (ml) 250 200 Other: Weight 70.8 kg 68.2 kg Intake Quantity No Sufficient Number of Voids Toilet 1 Number of Stools Toilet 1 tearful and uncomfortable JVP <10 RRR II/ holosystolic murmur heard at the LLSB and apex. No gallop Lungs CTAB No edema Result Diagrams: 07/08/17 Unknown 07/10/17 04:00 Cardiac Labs: Cardiac Lab Results (72 Hrs) 07/09/17 07/08/17 07/08/17 04:31 Unknown 21:43 Troponin I 0.020 0.020 0.025 Telemetry: NSR ICD10 Worksheet Patient Problems: Problems Problem Status Onset Hyperkalemia Acute Admission for dialysis Acute Left ankle sprain Acute ESRD (end stage renal disease) Acute Hypoxemia Acute Shortness of breath Acute CKD (chronic kidney disease) stage V requiring chronic dialysis Acute Pulmonary edema Acute Anemia Acute CHF (congestive heart failure) Acute Hypertensive urgency Acute Syncope Acute
--- NOTE | 2017-07-10 12:13 | ASMTCMCOM ---
CM Note CM Note Notes: 07/10/2017 Case Management Note Reviewed chart, discussed with RN. Pt in dialysis this morning with planned dental surgery at 1300. Yeni Mullins consult requested. Case management to meet tomorrow to discuss d/c needs. Case Management d/c poc: To be determined Date Signed: 07/10/2017 12:13 PM Electronically Signed By:Lindy Ibarra RN
[2017-07-10 12:16] LABS: LACTATE DEHYDROGENASE 475 IU/L (313-618)
[2017-07-10 12:25] LABS: % SATURATION 31 % (20-55); TOTAL IRON BINDING CAPACITY 265 ug/dL (260-490)
[2017-07-10] MEDS ORDERED: BUPIVACAINE 0.25% 30 ML SDV ONE (12:45)
[2017-07-10] MEDS ORDERED: LIDO/EPI 2%** Not for Epidural 20 ML MDV ONE (12:45)
[2017-07-10] MEDS ORDERED: CHLORHEXIDINE GLUCONATE 15 ML UDL ONE (12:47)
[2017-07-10] MEDS ORDERED: LR 1,000 ML IV ONE (13:00)
[2017-07-10] MEDS ORDERED: NS 500 ML IV ONE (13:04)
--- NOTE | 2017-07-10 13:14 | PDANEPAE ---
ANE History of Present Illness mulitple dental carries ANE Past Medical History - Cardiovascular History Hx Hypertension: Yes Hx Arrhythmias: No Hx Chest Pain: No Hx Coronary Artery / Peripheral Vascular Disease: No Hx CHF / Valvular Disease: Yes Hx Palpitations: Yes - Pulmonary History Hx COPD: No Hx Asthma/Reactive Airway Disease: No Hx Recent Upper Respiratory Infection: No Hx Oxygen in Use at Home: No Hx Sleep Apnea: No Sleep Apnea Screening Result - Last Documented: Negative - Neurologic History Hx Cerebrovascular Accident: No Hx Seizures: No Hx Dementia: No - Endocrine History Hx Diabetes: No - Renal History Hx Renal Disorders: Yes - Liver History Hx Hepatic Disorders: No - Neurological & Psychiatric Hx Hx Neurological and Psychiatric Disorders: No - Cancer History Hx Cancer: No - Congenital Disorder History Hx Congenital Disorders: No - GI History Hx Gastrointestinal Disorders: No - Chronic Pain History Chronic Pain: Yes (back pain) - Surgical History Prior Surgeries: gallbladder removal. fistula placement ANE Review of Systems Review of systems is: negative Review of Systems: - Cardio Pulmonary Function Testing Transthoracic echocardiogram (TTE): EF40% ANE Patient History - Allergies Allergies/Adverse Reactions: No Known Allergies Allergy (Verified 06/21/17 06:24) - Home Medications Home Medications: RX: Furosemide [Lasix 80 MG (*)] 80 mg PO BID 06/21/17 [Last Taken 07/08/17] RX: Topiramate [Topamax 25MG (*)] 25 mg PO HS 06/21/17 [Last Taken 07/08/17] RX: Metoprolol Succinate 25 mg PO DAILY 07/08/17 [Last Taken 07/08/17] - NPO status NPO Status: no food or drink >8 hours NPO Since - Liquids (Date): 07/10/17 NPO Since - Liquids (Time): 00:00 NPO Since - Solids (Date): 07/10/17 NPO Since - Solids (Time): 00:00 - Smoking Hx Smoking Status: Current every day smoker - Family Anes Hx Family Hx Anesthesia Complications: None ANE Labs/Vital Signs - Labs Result Diagrams: 07/08/17 Unknown 07/10/17 04:00 - Vital Signs Blood Pressure: 150/99 Heart Rate: 89 Respiratory Rate: 16 O2 Sat (%): 95 Height: 177.8 cm Weight: 68.2 kg ANE Physical Exam - Airway Neck exam: FROM Mallampati Score: Class 2 Mouth exam: normal dental/mouth exam - Pulmonary Pulmonary: no respiratory distress - Cardiovascular Cardiovascular: regular rate and rhythym - ASA Status ASA Status: IV ANE Anesthesia Plan Anesthesia Plan: general endotracheal anesthesia
[2017-07-10] MEDS ORDERED: MIDAZOLAM 2 MG/2 ML VIAL IVP ONE ×2 (13:15→13:30)
[2017-07-10] MEDS ORDERED: fentaNYL 100 MCG/2 ML INJ ONE ×4 (13:46→16:14)
[2017-07-10] MEDS ORDERED: ROCURONIUM 50 MG/5 ML VIAL ONE (13:46)
[2017-07-10] MEDS ORDERED: PROPOFOL 200 MG/20 ML VIAL ONE (13:46)
[2017-07-10] MEDS ORDERED: ceFAZolin 2 GM/DEXTROSE 100 ML IV ONE (13:47)
[2017-07-10] MEDS ORDERED: ceFAZolin 2 GM/SWFI 20 ML SYR IVP ONE (14:00)
[2017-07-10] MEDS ORDERED: NALOXONE HCL 0.4 MG/ML INJ IVP PRN (14:36)
[2017-07-10] MEDS ORDERED: HYDROmorphone HCL/NS/PF 0.4 MG/2 ML SYR IVP PRN ×2 (14:36→18:28)
[2017-07-10] MEDS ORDERED: ONDANSETRON 4 MG/2 ML VIAL IVP PRN (14:36)
--- NOTE | 2017-07-10 15:29 | POSTANESTH ---
Post Anesthetic Evaluation Cardiovascular Status: Normal, Stable Respiratory Status: Normal, Stable Level of Consciousness/Mental Status: Can Participate in Eval Pain Control: Adequate, Prn Tx Ordered Nausea/Vomiting Control: Adequate, Prn Tx Ordered Complications Possibly Related to Anesthesia: None Noted
[2017-07-10] MEDS ORDERED: HYDROmorphONE/DILAUDID 1 MG/ML INJ ONE (15:32)
[2017-07-10] MEDS: fentaNYL 100 MCG/2 ML INJ IVP PRN ×4 (15:34→16:28)
--- NOTE | 2017-07-10 15:34 | SOAPPROG ---
SOAP Progress Note Assessment/Plan: TAken to OR for Exraction of # 1, 5, 16, 17, 18, 19, 30, 31, 32 Under GA. Patient did well. See Dictation for details. 07/10/17 15:32 Objective: Vital Signs Temp Pulse Resp BP Pulse Ox 36.6 C 89 16 150/99 H 95 07/10/17 12:57 07/10/17 13:14 07/10/17 13:14 07/10/17 13:14 07/10/17 13:14 Laboratory Results 07/08/17 Unknown 07/10/17 04:00 07/09/17 07/10/17 07/11/17 05:59 05:59 05:59 Intake Total 250 200 Balance 250 200 ICD10 Worksheet Patient Problems: Problems Problem Status Onset Pulmonary edema Acute Syncope Acute Admission for dialysis Acute Anemia Acute CHF (congestive heart failure) Acute CKD (chronic kidney disease) stage V requiring chronic dialysis Acute ESRD (end stage renal disease) Acute Hyperkalemia Acute Hypertensive urgency Acute Hypoxemia Acute Left ankle sprain Acute Shortness of breath Acute
--- NOTE | 2017-07-10 16:09 | SOAPPROG ---
SOAP Progress Note Assessment/Plan: Assessment: Pt not seen, gone to oral surgery for tooth extractions. Had dialysis earlier today. Thought to be very fluid overloaded, tenuous hemodynamics with preadmission syncopal episode. Avoid overly rapid UF. Will repeat dialysis tomorrow, UF only, aim for 2.5 L fluid removal over 3 hrs. Reviewed cardiology note, plans to meet with CT surgery to eval for MVR. Plan: 07/10/17 16:07 07/10/17 16:07 Objective: Vital Signs Temp Pulse Resp BP Pulse Ox 36.6 C 89 16 150/99 H 100 07/10/17 15:25 07/10/17 13:14 07/10/17 13:14 07/10/17 13:14 07/10/17 15:25 Laboratory Results 07/08/17 Unknown 07/10/17 04:00 07/09/17 07/10/17 07/11/17 05:59 05:59 05:59 Intake Total 250 200 Balance 250 200 ICD10 Worksheet Patient Problems: Problems Problem Status Onset Pulmonary edema Acute Syncope Acute Admission for dialysis Acute Anemia Acute CHF (congestive heart failure) Acute CKD (chronic kidney disease) stage V requiring chronic dialysis Acute ESRD (end stage renal disease) Acute Hyperkalemia Acute Hypertensive urgency Acute Hypoxemia Acute Left ankle sprain Acute Shortness of breath Acute
--- NOTE | 2017-07-10 17:17 | SOAPPROG ---
JASON Progress Note Assessment/Plan: Assessment: Plan: 07/10/17 17:09 oral surgery/IM help appreciated needs 1-2 weeks before valve surgery per Dr Fritz family/pt advised, reviewed indications and surgical options re class 3-4 CHF w recurrent admissions w secondary MR due to long standing hypertension, difficult to control repair w 30% failure rate olong term tissue v in young dialysis 10 +/- years likely, mechanical valve difficult due to medical issues and lack of resources for proper mgmt they are leaning toward repair/tissue replacement and reop w mechanical when older and more stable life situation will follow as OP Objective: Vital Signs Temp Pulse Resp BP Pulse Ox 36.7 C 87 16 146/99 H 93 07/10/17 16:08 07/10/17 16:57 07/10/17 16:57 07/10/17 16:57 07/10/17 16:57 Laboratory Results 07/08/17 Unknown 07/10/17 04:00 07/09/17 07/10/17 07/11/17 05:59 05:59 05:59 Intake Total 250 200 400 Balance 250 200 400 ICD10 Worksheet Patient Problems: Problems Problem Status Onset Pulmonary edema Acute Syncope Acute Admission for dialysis Acute Anemia Acute CHF (congestive heart failure) Acute CKD (chronic kidney disease) stage V requiring chronic dialysis Acute ESRD (end stage renal disease) Acute Hyperkalemia Acute Hypertensive urgency Acute Hypoxemia Acute Left ankle sprain Acute Shortness of breath Acute
[2017-07-10] MEDS: oxyCODONE IR 15 MG TAB PO PRN ×2 (17:48→22:02)
[2017-07-10] MEDS: HYDROmorphONE/DILAUDID 1 MG/ML INJ IVP PRN ×2 (19:15→22:27)
[2017-07-10] MEDS: TOPIRAMATE 25 MG TAB PO SCH (21:24)
[2017-07-10] MEDS: LORazepam 1 MG TAB PO PRN (21:24)
[2017-07-11] MEDS: oxyCODONE IR 15 MG TAB PO PRN ×4 (02:29→14:54)
[2017-07-11] MEDS: HYDROmorphONE/DILAUDID 1 MG/ML INJ IVP PRN ×3 (03:49→12:58)
[2017-07-11 04:44] LABS: ANION GAP 13 mEq/L (8-16); CALCIUM 8.9 mg/dL (8.5-10.4); CARBON DIOXIDE 24 mEq/l (22-31); CHLORIDE 99 mEq/L (97-110); CREATININE 5.6 mg/dL (0.7-1.3); GLOMERULAR FILTRATION RATE 12; GLUCOSE 93 mg/dL (70-100); SODIUM 136 mEq/L (134-144)
[2017-07-11] MEDS: ACETAMINOPHEN 500 MG TAB PO SCH ×2 (06:36→13:01)
[2017-07-11] MEDS: LORazepam 1 MG TAB PO PRN (06:39)
--- NOTE | 2017-07-11 08:03 | SOAPPROG ---
SOAP Progress Note Assessment/Plan: s: POD # 1 s/p extraction of multiple teeth pre-heart valve replacement. patient did well overnight, pain controlled. exam: appropriate swelling bilaterally, wounds healing well intraorally and sutures intact. a/p s.p extraction, healing well. 1- continue ice to face, 2- diet as tolerated, - recommend soft renal diet 3- consider antibiotics while in house- will discuss with managing physician 4- follow up in my office on discharge- patient has my card and follow up info reconsult as needed. Delia Fritz DDS 07/11/17 07:58 Objective: Vital Signs Temp Pulse Resp BP Pulse Ox 37.2 C 90 18 149/103 H 97 07/11/17 07:16 07/11/17 07:16 07/11/17 07:16 07/11/17 07:16 07/11/17 07:16 Laboratory Results 07/08/17 Unknown 07/11/17 03:37 07/10/17 07/11/17 07/12/17 05:59 05:59 05:59 Intake Total 200 1100 Balance 200 1100 ICD10 Worksheet Patient Problems: Problems Problem Status Onset Pulmonary edema Acute Syncope Acute Admission for dialysis Acute Anemia Acute CHF (congestive heart failure) Acute CKD (chronic kidney disease) stage V requiring chronic dialysis Acute ESRD (end stage renal disease) Acute Hyperkalemia Acute Hypertensive urgency Acute Hypoxemia Acute Left ankle sprain Acute Shortness of breath Acute
[2017-07-11] MEDS: FUROSEMIDE 100 MG/10 ML VIAL IVP SCH ×2 (08:19→14:55)
[2017-07-11] MEDS: LISINOPRIL 10 MG TAB PO SCH (08:22)
[2017-07-11] MEDS: ISOSORBIDE MONONITRATE 30 MG TAB.SR PO SCH (08:22)
[2017-07-11] MEDS: GABAPENTIN 100 MG CAP PO SCH (08:22)
[2017-07-11] MEDS: CARVEDILOL 25 MG TAB PO SCH (08:22)
--- NOTE | 2017-07-11 10:09 | HOSPPROG ---
Hospitalist Progress Note Assessment/Plan: 26 yo M severe MR, esrd admitted w syncope, volume overload MR: being evaluated for valve replacement he has failed conservative management plans for surgery when recovered with teeth esrd: HD yesterday syncope w volume removal renal diet hyperkalemia: renal diet HD in AM necrotic teeth: s/p tooth extraction BID amoxicillin volume overload: has pulm edema and splenomegaly remarkably no edema does make urine so continue IV diuresis QUIGLEY: suspect htn related scheduled tylenol trial of neurontin proph: SC heparin dispo: home today > 30 minutes Subjective: s/p tooth extraction. K OK Objective: Vital Signs Temp Pulse Resp BP Pulse Ox 37.2 C 95 18 147/98 H 97 07/11/17 07:16 07/11/17 08:22 07/11/17 07:16 07/11/17 08:22 07/11/17 07:16 Laboratory Results 07/08/17 Unknown 07/11/17 03:37 07/10/17 07/11/17 07/12/17 05:59 05:59 05:59 Intake Total 200 1100 Balance 200 1100 - Physical Exam Constitutional: no apparent distress, appears nourished Eyes: PERRL, anicteric sclera Ears, Nose, Mouth, Throat: moist mucous membranes, hearing normal Cardiovascular: regular rate and rhythym, no murmur, rub, or gallop Respiratory: no respiratory distress, no rales or rhonchi Gastrointestinal: normoactive bowel sounds, soft, non-tender abdomen Genitourinary: no bladder fullness, heller in urethra Skin: warm, normal color Musculoskeletal: full muscle strength Neurologic: AAOx3 ICD10 Worksheet Patient Problems: Problems Problem Status Onset Pulmonary edema Acute Syncope Acute Admission for dialysis Acute Anemia Acute CHF (congestive heart failure) Acute CKD (chronic kidney disease) stage V requiring chronic dialysis Acute ESRD (end stage renal disease) Acute Hyperkalemia Acute Hypertensive urgency Acute Hypoxemia Acute Left ankle sprain Acute Shortness of breath Acute
--- NOTE | 2017-07-11 12:05 | SOAPPROG ---
JASON Progress Note Assessment/Plan: Assessment: 1. ESRD. Extra UF treatment today to remove volume. Does not tolerate large volume removal (syncope, headaches) due to tenuous CV status. May benefit from 4d/wk HD with smaller uf volume or longer HD time until has valve replacement. Left message with [facility] regarding the same. 2. CHF. Chronic progressive systolic and diastolic. Has svr MR, EF 40%. On low dose lisinopril, coreg, hydralazine, amlodipine. Could uptitrate lisinopril. To have MVR in 1-2 wks or so to allow for healing after dental surgery. 3. HTN. On 4 meds. See above. Plan: 07/10/17 16:07 07/10/17 16:07 07/11/17 12:02 07/11/17 12:11 07/11/17 12:13 07/11/17 12:13 07/11/17 12:14 Subjective: C/o headaches with dialysis. Had HD yesterday and day before. Had 11 teeth extracted yesterday. Pain ok. Stressed about his health and recent divorce as well as his children. Objective: Vital Signs Temp Pulse Resp BP Pulse Ox 37.1 C 88 20 140/79 H 99 07/11/17 11:23 07/11/17 11:23 07/11/17 11:23 07/11/17 11:23 07/11/17 11:23 Laboratory Results 07/08/17 Unknown 07/11/17 03:37 07/10/17 07/11/17 07/12/17 05:59 05:59 05:59 Intake Total 200 1100 Balance 200 1100 ICD10 Worksheet Patient Problems: Problems Problem Status Onset Hyperkalemia Acute Admission for dialysis Acute Left ankle sprain Acute ESRD (end stage renal disease) Acute Hypoxemia Acute Shortness of breath Acute CKD (chronic kidney disease) stage V requiring chronic dialysis Acute Pulmonary edema Acute Anemia Acute CHF (congestive heart failure) Acute Hypertensive urgency Acute Syncope Acute
[2017-07-11] MEDS ORDERED: NS 100 ML IV SCH (12:30)
[2017-07-11] MEDS ORDERED: NS 100 ML IV PRN (12:30)
--- NOTE | 2017-07-11 13:16 | PDCARPN ---
Cardiology Progress Note Assessment/Plan: Assessment/plan: 26-year-old male with end-stage renal disease on dialysis. This is related to solitary kidney. Has a nonischemic cardiomyopathy with an ejection fraction of approximately 40%, severe mitral regurgitation, hypertension, and chronic anemia. He has had multiple admissions over the past several weeks for heart failure. He was readmitted on July 08 with an episode of syncope that occurred shortly after dialysis. This is of unclear etiology, but may be related to fluid shifts after dialysis. Troponins have been negative. He continues to have class 3 heart failure symptoms. 1. Heart failure: Systolic, acute on chronic. This is related to a combination of mitral regurgitation, hypertensive cardiomyopathy. Reports medication compliance. At this point, he is quite limited in activity and I do think that his mitral regurgitation is severely impacting his ability to get dialysis and have relatively normal quality of life. Continue carvedilol, Lasix , afterload reduction with imdur, hydralazine. MARIZOL-I started 07/09. Potassium stable. Follow this closely. Will have outpt visit with Dr. Farr on 07/16 ( and Dr. Farr also saw patient here) and likely MV surgery the week after to allow time to heal post dental extractions. 2. Hypertension: Improved control. He was quite hypertensive upon admission. 3. Mitral regurgitation: Severe. I reviewed serial echocardiograms. Overall his valve appears fairly structurally normal, but there is some myxomatous change. It is likely that his mitral regurgitation is partly related to his LV dysfunction, but I think there is also some primary valvular pathology. Consideration for mitral valve surgery as detailed per #1. 4. Anemia: This is chronic. Likely related to his renal disease. In the past he has received transfusions. He does get EPO with HD. He denies any active bleeding. Certainly, his anemia is contributing to his exertional dyspnea. Iron studies normal. Haptoglobin pending 5. Periodontal disease: several tooth extractions this admission 6. TSH mildly elevated; follow up as outpt. 7. Anxiety: defer to IM 07/11/17 13:14 Subjective: Jorge is still SOB and has PND. Exertional dyspnea is slightly improved since admission Objective: Vital Signs (8 Hrs) Temp Pulse Resp BP Pulse Ox 07/11/17 11:23 37.1 C 88 20 140/79 H 99 07/11/17 08:22 95 147/98 H 07/11/17 07:16 37.2 C 90 18 149/103 H 97 Intake/Output (24 Hrs) 07/10/17 07/11/17 07/12/17 05:59 05:59 05:59 Intake Total 200 1100 Balance 200 1100 Intake: Oral (ml) 200 700 IV Intake (ml) 400 Other: Weight 68.2 kg 66.7 kg Number of Voids Toilet 5 Number of Stools Toilet 1 1 NAD JVP < 10 RRR harsh MR murmur Lungs CTAB no edema Result Diagrams: 07/08/17 Unknown 07/11/17 03:37 Cardiac Labs: Cardiac Lab Results (72 Hrs) 07/09/17 07/08/17 07/08/17 04:31 Unknown 21:43 Troponin I 0.020 0.020 0.025 Telemetry: NSR ICD10 Worksheet Patient Problems: Problems Problem Status Onset Hyperkalemia Acute Admission for dialysis Acute Left ankle sprain Acute ESRD (end stage renal disease) Acute Hypoxemia Acute Shortness of breath Acute CKD (chronic kidney disease) stage V requiring chronic dialysis Acute Pulmonary edema Acute Anemia Acute CHF (congestive heart failure) Acute Hypertensive urgency Acute Syncope Acute
[2017-07-11 15:19] VITALS: BP 145/88; PULSE 86; RESP 18; TEMP 98.3; O2SAT 96
--- NOTE | 2017-07-11 16:23 | ASDISCHSUM ---
Discharge Information Plan Status:Home with No Needs Medically Cleared to Leave:07/10/2017 Discharge Date:07/11/2017 04:05 PM D/C Disposition: ADT D/C Disposition:Home, Routine, Self-Care Projected Discharge Date:07/11/2017 12:00 AM Transportation at D/C: Discharge Delay Reason: Follow-Up Date:07/11/2017 12:00 AM Discharge Slot: Final Diagnosis: Placement Information Patient Contact Information Contact Name:JEFFERY Relationship:Mother Address:[address] Work Phone: City:[place] Alternate Phone: [facility]/Zip Code:[place] [address] Email: Financial Information Financial Class: Primary Plan Desc:MEDICARE INPATIENT Primary Plan Number:[id number] Secondary Plan Desc:MEDICA[place] Secondary Plan Number:[id number] Assessment Information [facility] CM Progress Note CM Note CM Note Notes: 07/09/2017 Case Management Note Reviewed chart, spoke w/RN. Attempted to meet w/pt but unable d/t dialysis today. Case management d/c poc: To be determined. Yeni Mullins consult requested per RN. There are no PT or OT evals at this time. Surgery is planned for this admission. Case Management to follow and will meet w/pt on Saturday. Date Signed: 07/09/2017 04:12 PM Electronically Signed By:Lindy Ibarra RN [facility] CM Progress Note CM Note CM Note Notes: 07/10/2017 Case Management Note Reviewed chart, discussed with RN. Pt in dialysis this morning with planned dental surgery at 1300. Yeni Mullins consult requested. Case management to meet tomorrow to discuss d/c needs. Case Management d/c poc: To be determined Date Signed: 07/10/2017 12:13 PM Electronically Signed By:Lindy Ibarra RN Intervention Information Intervention Type:*IM-Signed Date of Service:07/11/2017 11:54 AM Patient Type:Inpatient Staff Member:Tami Baltazar Hours: Discipline: Severity: Comment:
--- NOTE | 2017-07-18 16:14 | GOP ---
[f rep st] OPERATIVE REPORT DATE OF OPERATION: 07/10/2017 SURGEON: Fidel Fritz DDS PREOPERATIVE DIAGNOSIS: Caries and periodontal disease. POSTOPERATIVE DIAGNOSIS: Caries and periodontal disease. PROCEDURE PERFORMED: Extraction of teeth #1, 16, 5, 17, 18, 19, 30, 31, and 32. FINDINGS: INDICATIONS: This is a 26-year-old male who has a failing heart valve and was seen by the Cardiothoracic Service, and deemed necessary to replace his heart valve. He had rampant caries in his mouth. I was consulted to remove any nonrestorable carious teeth. CT scan was obtained that verified the aforementioned teeth need to be extracted. The patient was consented for extraction of said teeth and taken to the operating room. DESCRIPTION OF PROCEDURE: The patient was taken to the operating room, where he was induced under general anesthesia and orotracheally intubated. He was then prepped in a standard oral and maxillofacial surgical fashion. Approximately 15 cc of 2% lidocaine with 1:100,000 epinephrine was infiltrated intraorally. Teeth #1, 5, and 16 were extracted simply. #17 and 32 were extracted by making an incision in a distal buccal hockey-stick fashion. A buccal trough was made using a fissure samantha. The tooth was then sectioned 2[address] a samantha and 1[address] a straight elevator. The tooth was extracted in sections. Avulsed teeth #19 and 30 were also extracted in a surgical fashion, where a buccal flap was made. A buccal trough was created around the tooth, and the tooth was sectioned in pieces and removed in pieces. #18 and #31 were extracted simply. All surgical sites were then irrigated and debrided. Any sharp edges were removed. The areas were then closed using a 4-0 chromic suture. The patient was then turned over to the anesthesia service where he was brought out of general anesthesia and sent to the PACU in stable condition. Blood loss was minimal. There were no specimens. There were no drains. He received approximately 200 cc of lactated Ringer's. /[id number]/MODL MTDD
== END 2017-07-11 16:05 | disposition home or self-care (01) | DRG 640 ==
LOC: EDUNIT# → F2W 20:20
PROVIDERS: ADMIT Student in an Organized Health Care Education/Training Program; ATTEND Student in an Organized Health Care Education/Training Program
PROC: 5A1D70Z Performance of Urinary Filtration, Intermittent, Less than 6 Hours Per Day (ICD-10-PCS; 2017-07-10)
PROC: 0CTW0Z1 Resection of Upper Tooth, Multiple, Open Approach (ICD-10-PCS; principal; 2017-07-10 13:45)
PROC: 0CTX0Z1 Resection of Lower Tooth, Multiple, Open Approach (ICD-10-PCS; principal; 2017-07-10 13:45)
DX: E86.1 Hypovolemia (principal); I13.2 Hypertensive heart and chronic kidney disease with heart failure and with stage 5 chronic kidney disease, or end stage renal disease; N18.6 End stage renal disease; I50.23 Acute on chronic systolic (congestive) heart failure; J81.1 Chronic pulmonary edema; I42.9 Cardiomyopathy, unspecified; E87.5 Hyperkalemia; E87.79 Other fluid overload; I34.0 Nonrheumatic mitral (valve) insufficiency; K05.6 Periodontal disease, unspecified; D63.1 Anemia in chronic kidney disease; Z72.0 Tobacco use; Z99.2 Dependence on renal dialysis
CPT/HCPCS: 83010-90; 92507-GN; 92523-GN; G9168-GN-CJ; G9169-GN-CJ; G9170-GN-CJ; J0171; J0690; J1170; J1940; J2250; J2704; J3010; Q9967

== ENCOUNTER 2017-08-02 05:44 | Inpatient (IN) | payer OTHER, MEDICAID ==
[~2017-08-02 05:44] MED LIST: ADENOSINE 6 MG/2 ML VIAL ONE; ALBUMIN 5% 250 ML BOTTLE IV ONE; AMIODARONE HCL 150 MG/3 ML VIAL ONE; CALCIUM CHLORIDE 1 GM/10 ML INJ ONE; CITRATE DEXTROSE SOLN 500 ML BAG ONE; DOPamine/DEXTROSE/250 ML BAG IV ONE; HEPARIN 10,000 UNIT/10 ML MDV ONE; LIDOCAINE 2% 100 MG/5 ML SYR ONE; MAGNESIUM SULFATE 1 GM/2 ML VIAL ONE; MILRINONE/DEXTROSE/100 ML BAG IV ONE; NA BICARBONATE 50 MEQ/50 ML VIAL ONE; PROTAMINE SULFATE 50 MG/5 ML VIAL IVP ONE; ceFAZolin 1 GM VIAL ONE; methylPREDNISolone SOD SUCC 1 GM/8 ML VIAL ONE; niCARdipine/NACL/200 ML BAG IV ONE
[2017-08-02] MEDS ORDERED: DOBUTamine/DEXTROSE 250 ML IV ONE (06:00)
[2017-08-02] MEDS ORDERED: PHENYLEPHRINE HCL 50 MG in NS 250 ML IV ONE (06:00)
[2017-08-02] MEDS ORDERED: LIDOCAINE 1% 5 ML SDV ID PRN (06:00)
[2017-08-02] MEDS ORDERED: AMINOCAPROIC ACID 5 GM/20 ML VIAL IV ONE (06:00)
[2017-08-02] MEDS ORDERED: TRANEX ACID 1,000 MG/NS 100 ML IV ONE ×2 (06:00)
[2017-08-02] MEDS ORDERED: INSULIN REGULAR HUMAN 100 UNIT in NS 100 ML IV ONE (06:00)
[2017-08-02] MEDS ORDERED: SODIUM BICARBONATE 20 MEQ, LIDOCAINE 1% 10 ML in NORMOSOL-R 1,000 ML MISC ONE (06:00)
[2017-08-02] MEDS ORDERED: NOREPINEPHRINE BITARTRATE 16 MG in NS 250 ML IV ONE (06:00)
[2017-08-02] MEDS ORDERED: MILRINONE/DEXTROSE 100 ML IV ONE (06:00)
[2017-08-02] MEDS ORDERED: MANNITOL 25% 12.5 GM/50 ML VIAL IVP ONE (06:00)
[2017-08-02] MEDS ORDERED: ceFAZolin 2 GM/SWFI 2 GM/20 ML SYR IVP ONE (06:00)
[2017-08-02] MEDS ORDERED: CITRATE DEXTROSE SOLN 500 ML BAG MISC ONE (06:00)
[2017-08-02] MEDS ORDERED: NS 1,000 ML IV ONE (06:26)
--- NOTE | 2017-08-02 06:37 | PDGENHP ---
History and Physical - Chief Complaint Severe MR - History of Present Illness 26M here for elective mitral valve repair. Pt with multiple hospital admissions for respiratory distress and hypertensive urgencies related to ESRD. Pt states he experiences GAMBINO with LE edema despite following his HD schedule. History Information - Allergies/Home Medication List Allergies/Adverse Reactions: No Known Allergies Allergy (Verified 08/02/17 06:13) Home Medications: Furosemide [Lasix 80 MG (*)] 80 mg PO BID 06/21/17 [Last Taken 08/01/17] Metoprolol Succinate 25 mg PO DAILY 07/08/17 [Last Taken 08/01/17] I have personally reviewed and updated: medical history, social history, surgical history - Past Medical History CHF, ESRD Additional medical history: ESRD secondary to solitary kidney, on HD in [facility] - Surgical History Additional surgical history: LUE AVF creation - Family History Positive for: non-pertinent Additional family history: No family history of end-stage renal disease - Social History Smoking Status: Current every day smoker Additional social history: Reports he is currently living with his mother in [place], does not have any transportation beyond the local bus system Review of Systems Review of Systems: Constitutional: Reports: no symptoms EENMT: Reports: no symptoms Cardiac: Reports: no symptoms Respiratory: Reports: other (as per HPI) Gastrointestinal: Reports: no symptoms Genitourinary: Reports: no symptoms Muscolosketal: Reports: no symptoms Skin: Reports: no symptoms Neurological: Reports: no symptoms Physical Exam Physical Exam: Temp Pulse Resp BP Pulse Ox 36.4 C 84 16 151/92 H 99 08/02/17 06:05 08/02/17 06:05 08/02/17 06:05 08/02/17 06:05 08/02/17 06:05 Constitutional: no apparent distress, appears nourished, not in pain Eyes: anicteric sclera Ears, Nose, Mouth, Throat: moist mucous membranes, hearing normal, poor dentition Cardiovascular: regular rate and rhythym Respiratory: no respiratory distress, no rales or rhonchi, clear to auscultation Gastrointestinal: soft, non-tender abdomen Skin: warm, normal color Neurologic: AAOx3, sensation intact bilaterally, No weakness Psychiatric: interacting appropriately, not anxious, not encephalopathic, thought process linear Lab Data & Imaging Review 08/02/17 15:30 08/02/17 06:15 Patient ABO/Rh A POSITIVE 07/30/17 11:40 Antibody Screen NEGATIVE 07/30/17 11:40 Crossmatch IS Only See Detail 07/30/17 11:40 Visualized and Interpreted Chest x-ray results: Yes Chest X-Ray results: no infiltrate, normal heart size, other (vascular congestion) Assessment & Plan Assessment: Severe MR Plan: MV repair vs replacement
[2017-08-02] MEDS ORDERED: BUPIVACAINE 0.25% 30 ML SDV ONE (06:44)
[2017-08-02] MEDS: MUPIROCIN 2% 22 GM OINT NS SCH ×3 (06:47→21:10)
[2017-08-02] MEDS ORDERED: MIDAZOLAM 2 MG/2 ML VIAL IVP ONE (06:57)
[2017-08-02] MEDS ORDERED: MIDAZOLAM 2 MG/2 ML VIAL ONE ×3 (06:58→10:16)
--- NOTE | 2017-08-02 06:58 | PDANEPAE ---
ANE History of Present Illness mvr ANE Past Medical History - Cardiovascular History Hx Hypertension: Yes Hx Arrhythmias: No Hx Chest Pain: No Hx Coronary Artery / Peripheral Vascular Disease: No Hx CHF / Valvular Disease: Yes Hx Palpitations: No Cardiovascular History Comment: htn. mitral valve prolapse. chf - Pulmonary History Hx COPD: No Hx Asthma/Reactive Airway Disease: No Hx Recent Upper Respiratory Infection: No Hx Oxygen in Use at Home: No Hx Sleep Apnea: No Sleep Apnea Screening Result - Last Documented: Negative - Neurologic History Hx Cerebrovascular Accident: No Hx Seizures: No Hx Dementia: No Neurologic History Comment: migraines - Endocrine History Hx Diabetes: No - Renal History Hx Renal Disorders: Yes Renal History Comment: esrd. dialysis m-w-f @ [facility] - Liver History Hx Hepatic Disorders: No - Neurological & Psychiatric Hx Hx Neurological and Psychiatric Disorders: No - Cancer History Hx Cancer: No - Congenital Disorder History Hx Congenital Disorders: No - GI History Hx Gastrointestinal Disorders: No - Other Health History Other Health History: missing teeth from previous surgery. fistula left wrist area - Chronic Pain History Chronic Pain: Yes (back pain) - Surgical History Prior Surgeries: 07/10/17 multiple dental extractions with Cat[facility]. gallbladder removal. fistula placement ANE Review of Systems Review of Systems: - Exercise capacity METS (RN): 3 METS ANE Patient History - Allergies Allergies/Adverse Reactions: No Known Allergies Allergy (Verified 08/02/17 06:13) - Home Medications Home Medications: Furosemide [Lasix 80 MG (*)] 80 mg PO BID 06/21/17 [Last Taken 08/01/17] Metoprolol Succinate 25 mg PO DAILY 07/08/17 [Last Taken 08/01/17] - NPO status NPO Since - Liquids (Date): 08/01/17 NPO Since - Liquids (Time): 22:30 NPO Since - Solids (Date): 08/01/17 NPO Since - Solids (Time): 22:30 - Anes Hx Anes Hx: no prior problems - Smoking Hx Smoking Status: Current every day smoker - Family Anes Hx Family Hx Anesthesia Complications: None ANE Labs/Vital Signs - Labs Result Diagrams: 08/02/17 06:15 08/02/17 06:15 - Vital Signs Blood Pressure: 151/92 Heart Rate: 84 Respiratory Rate: 16 O2 Sat (%): 99 Height: 177.8 cm Weight: 66.7 kg ANE Physical Exam - Airway Mallampati Score: Class 2 Mouth exam: poor dentition - Pulmonary Pulmonary: no respiratory distress - Cardiovascular Cardiovascular: regular rate and rhythym - ASA Status ASA Status: III ANE Anesthesia Plan Anesthesia Plan: general endotracheal anesthesia Lines/Monitors: arterial line, central line, SANJAY
[2017-08-02] MEDS ORDERED: ROCURONIUM 100 MG/10 ML VIAL ONE (07:06)
[2017-08-02] MEDS ORDERED: PHENYLEPHRINE 10 MG/ML SDV ONE (07:08)
[2017-08-02] MEDS ORDERED: fentaNYL 250 MCG/5 ML INJ ONE ×2 (07:14)
[2017-08-02] MEDS ORDERED: PROPOFOL 200 MG/20 ML VIAL ONE (07:15)
[2017-08-02] MEDS ORDERED: LIDOCAINE 2% 5 ML SDV ONE (07:15)
[2017-08-02] MEDS ORDERED: NITROGLYCERIN 50 MG/10 ML SDV IV ONE (08:08)
--- NOTE | 2017-08-02 08:09 | GCON ---
[f rep st] CONSULTATION DATE OF CONSULTATION: 08/02/2017 REASON FOR CONSULTATION: Opinion regarding end-stage kidney failure. HISTORY OF PRESENT ILLNESS: The patient is a 26-year-old gentleman with end-stage kidney failure on 3 times weekly hemodialysis at the [facility] unit. The patient has been quite noncompliant with his therapies in the past, but has recently been somewhat more compliant. In the course of evaluati on of his vascular disease, echocardiogram was performed showing significant mitral regurgitation. Kaylene miller was seen by Dr. Smooth Farr and has been scheduled for mitral valve repair/replacement today. PAST MEDICAL HISTORY: Significant for: 1. End-stage kidney failure. 2. Fluid volume overload. 3. Medical noncompliance. 4. Severe mitral regurgitation. 5. Status post left upper arm AV fistula. MEDICATIONS: Include: 1. Lasix 80 mg twice daily. 2. Metoprolol 25 mg daily. ALLERGIES: None known. FAMILY HISTORY: Negative for renal failure. SOCIAL HISTORY: The patient is currently not employed. He lives with his mother. He smokes cigaret hoda daily. REVIEW OF SYSTEMS: Essentially negative except for medical noncompliance and some shortness of breat h. LABORATORY: Potassium today is 5.5. Hemoglobin 8.9, hematocrit 26.5. IMPRESSION: 1. End-stage kidney failure on 3 times weekly dialysis. 2. Hyperkalemia. 3. Severe mitral regurgitation requiring mitral valve repair/replacement. RECOMMENDATIONS: 1. The patient will be going back to the operating room for surgical repair or replacement of his mi tral valve. 2. We have been asked to perform intraoperative hemodialysis during cardioplegia. 3. We will continue with his dialysis postoperatively. Thank you for allowing me to participate in the care of your patient. If there are any questions, pl ease do not hesitate to contact us. We will be following along with you. /[id number]/MODL
[2017-08-02] MEDS ORDERED: SUGAMMADEX SODIUM 200 MG/2 ML VIAL IVP ONE (10:28)
[2017-08-02] MEDS ORDERED: DEXMEDETOMIDINE IN 0.9 % NACL 50 ML IV SCH (10:30)
[2017-08-02] MEDS ORDERED: fentaNYL 50 MCG PATCH TD ONE (11:00)
[2017-08-02] MEDS ORDERED: ALBUMIN 5% 250 ML BOTTLE IV ONE (11:08)
[2017-08-02] MEDS ORDERED: MAGNESIUM SULF 2 GM/WATER 50 ML BAG IV ONE ×2 (11:08)
[2017-08-02] MEDS ORDERED: BISACODYL 10 MG SUPP PR PRN (11:20)
[2017-08-02] MEDS ORDERED: MEPERIDINE 25 MG/ML SYR IVP PRN (11:20)
[2017-08-02] MEDS ORDERED: ALBUMIN 5% 250 ML IV PRN (11:20)
[2017-08-02] MEDS ORDERED: PANTOPRAZOLE SODIUM 40 MG VIAL IVP ONE (11:20)
[2017-08-02] MEDS ORDERED: LACTULOSE 20 GM/30 ML UDCUP PO PRN (11:20)
[2017-08-02] MEDS ORDERED: POLYETHYLENE GLYCOL 3350 17 GM PKT PO PRN (11:20)
[2017-08-02] MEDS ORDERED: POTASSIUM Cl (KCl) 50 ML IV PRN (11:20)
[2017-08-02] MEDS ORDERED: CEPACOL LOZENGE PO PRN (11:20)
[2017-08-02] MEDS ORDERED: MAGNESIUM SULF 2 GM/WATER 50 ML IV ONE (11:20)
[2017-08-02] MEDS ORDERED: SODIUM CL NASAL 45 ML BTL EACHNARE PRN (11:20)
[2017-08-02] MEDS ORDERED: ACETAMINOPHEN 650 MG SUPP PR PRN (11:20)
[2017-08-02] MEDS ORDERED: METOCLOPRAMIDE 10 MG/2 ML VIAL IVP PRN (11:20)
[2017-08-02] MEDS ORDERED: INSULIN REGULAR HUMAN 100 UNIT in NS 100 ML IV SCH (11:30)
[2017-08-02] MEDS ORDERED: NS 1,000 ML IV SCH (11:30)
--- NOTE | 2017-08-02 11:38 | POSTANESTH ---
Post Anesthetic Evaluation Cardiovascular Status: Normal, Stable Respiratory Status: Normal, Stable Level of Consciousness/Mental Status: Can Participate in Eval, Mildly Sleepy, Arousable Pain Control: Adequate, Prn Tx Ordered Nausea/Vomiting Control: Adequate, Prn Tx Ordered Complications Possibly Related to Anesthesia: None Noted
[2017-08-02] MEDS ORDERED: NALOXONE HCL 0.4 MG/ML INJ IVP PRN (11:39)
[2017-08-02] MEDS ORDERED: fentaNYL 100 MCG/2 ML INJ IVP PRN (11:39)
[2017-08-02] MEDS ORDERED: HYDROmorphONE/DILAUDID 1 MG/ML INJ IVP PRN (11:39)
[2017-08-02] MEDS: KETOROLAC 15 MG/1 ML SDV IVP SCH ×3 (13:00→23:31)
--- NOTE | 2017-08-02 13:09 | GCON ---
[f rep st] CONSULTATION INTENSIVE CONSULTATION DATE OF CONSULTATION: 08/02/2017 HISTORY OF PRESENT ILLNESS: The patient is seen postoperatively after receiving a minimally invasive mitral valve replacement. The patient is a 26-year-old white male with an extensive past medical hi story including anemia of chronic disease, end-stage renal disease requiring dialysis, and mitral reg urgitation. He has had numerous admissions over the last several months for breathlessness. Again, he is examined postoperatively. The patient is currently sedated, but off mechanical ventilation. A ll history is gleaned from the medical record. PAST MEDICAL HISTORY: Significant for end-stage renal disease, severe mitral regurgitation, AV fistu la, and anemia of chronic disease. SOCIAL HISTORY: He is a daily smoker. No significant alcohol use. Lives with his mother. ALLERGIES: No known allergies to medications. FAMILY HISTORY: Unremarkable. REVIEW OF SYSTEMS: A 10-point review of systems was conducted and negative except for that noted in HPI. MEDICATIONS: At home include Lasix and metoprolol. PHYSICAL EXAMINATION: VITAL SIGNS: Blood pressure 151/92, pulse 84, respirations 16, temperature 36 .4, oxygen saturation 99% on face mask. GENERAL: He is a well-developed, well-nourished 26-year-old male, who is resting comfortably, in no acute distress. HEENT: Eyes ZOLTAN. EOMI. Throat shows no erythema or tonsillar hypertrophy. NECK: Supple. No cervical adenopathy. HEART: Regular rate and rhythm, with a 2/6 systolic murmur at the left sternal border, without radiation. LUNGS: Diminishe d breath sounds, but no wheeze. ABDOMEN: Soft, nontender. Bowel sounds are present. EXTREMITIES: No clubbing, cyanosis, or edema. LABORATORIES: Hemoglobin 8.9, hematocrit 26, potassium 5.5. IMPRESSION: 1. Status post minimally invasive mitral valve replacement. 2. Severe mitral regurgitation. 3. End-stage renal disease. 4. Respiratory stable, off mechanical ventilation. 5. Pain. RECOMMENDATIONS: 1. Adequate pain control. 2. DVT and PE prophylaxis, holding anticoagulation for now. 3. Agree with nephrology consult and continued dialysis. 4. PT and OT. 5. Early ambulation. /[id number]/MODL
[2017-08-02] MEDS ORDERED: ceFAZolin 2 GM/DEXTROSE 100 ML IV SCH (14:00)
[2017-08-02] MEDS ORDERED: ceFAZolin 2 GM/SWFI 20 ML SYR IVP SCH (14:00)
--- NOTE | 2017-08-02 14:01 | ASMTCMCOM ---
CM Note CM Note Notes: Patient is POD #[address] Farr. He has an extensive PMH including dialysis for ESRD. He is disabled and lives with his mother. PT/OT have been ordered, and nephrology will also see. CM will follow for discharge planning. Date Signed: 08/02/2017 02:01 PM Electronically Signed By:Kasey Molina RN
[2017-08-02] MEDS: ONDANSETRON 4 MG/2 ML VIAL IVP PRN ×2 (16:32→22:17)
[2017-08-02] MEDS ORDERED: niCARdipine/NACL/200 ML BAG IV ONE (17:45)
[2017-08-02] MEDS: HYDROCODONE/APAP 5/325 TAB PO PRN (19:17)
--- NOTE | 2017-08-02 20:11 | GOP ---
[f rep st] OPERATIVE REPORT DATE OF OPERATION: 08/02/2017 SURGEON: Smooth Farr DO ACCESS SERVICES REPRESENTATIVE: Julia. ANESTHESIOLOGIST: Luis Manuel. PREOPERATIVE DIAGNOSIS: 1. Functional mitral regurgitation. 2. Hypertensive dilated cardiomyopathy. 3. Chronic renal failure, on dialysis. POSTOPERATIVE DIAGNOSIS: 1. Functional mitral regurgitation. 2. Hypertensive dilated cardiomyopathy. 3. Chronic renal failure, on dialysis. PROCEDURE PERFORMED: 1. Minimally invasive cardiac surgery mitral valve replacement, with a #25 Magna bioprosthesis with chordal sparing. 2. Right common femoral artery and vein cannulation with primary repair. 3. Hemodialysis while on pump. FINDINGS: DESCRIPTION OF PROCEDURE: OPERATIVE PROCEDURE: Patient was consented, brought to the operating room, and intubated with a sing le-lumen endotracheal tube to avoid re-expansion pulmonary edema. He was prepped and draped with the right chest slightly elevated. We then performed a 4th intercostal space anterior axillary line 3.5 cm incision, doing a muscle sparing incision. The intercostal space was entered without difficulty. The lung was gently retracted with a lap sponge. We then were able to identify the superior pulmon gudelia vein and aorta, and we were in excellent position to approach the mitral valve. We then exposed the right common femoral artery and vein through a 2 cm incision in the groin, staying above the ingu inal crease. The patient was heparinized. We then cannulated 25 two-stage venous cannula under echo guidance into the superior vena cava, as well as the 17-[place] arterial cannula into the right commo n femoral artery. Both were good quality vessels. They were secured in place. Cardiopulmonary bypass was begun. The lungs were decompressed. We then opened the pericardium exten ding onto the ascending aorta and down to the diaphragm, staying 3.5 cm away from the phrenic nerve. Retraction sutures were placed into the pericardium for better exposure. We then placed an antegrad e catheter in the ascending aorta through a separate stab wound incision. A cross-clamp was brought through the 3rd intercostal space, the aorta was crossclamped under direct visualization without diff iculty, and an antegrade cardioplegia was administered. The patient was cooled systemically as well. After arresting the heart, the left atrium was opened and retracted with a [place] instrument. [place] lent exposure of the valve was identified. This was a relatively normal-appearing valve; however, ba sed on echo, he had advanced LV dilation with some LV dysfunction and secondary functional regurgitat ion. We then detached the anterior leaflet and included it at 3 and 9 o'clock with interrupted 2-0 T ycron pledgeted mattress sutures and placed a 25 mm mitral valve, which was a rather tight fit given the small anulus. Left atrium was not markedly enlarged. After securing the valve, using intermitte nt antegrade cardioplegia, the left atrium was closed. The plan was to place an AtriClip across the left atrial appendage after closing the left atrium. Attempts to expose it beneath the aorta were met with some difficulty, and it was a broad-based, very short appendage, and I was concerned that if I tore it, I would not be able to repair it from that s ite. For that reason, no closure of the atrial appendage was performed. I did not believe it warran galina re-opening the left atrium. We then placed the patient in Trendelenburg, removed the cross-clamp with suction on the ascending aortic vent and continued to de-air the patient using standard maneuve rs until no air was seen on echo. We then easily weaned the patient from bypass. Cannula was remove d. The vessels were oversewn. Pedal pulses were confirmed with Doppler after the heparin was revers ed with protamine. A single Dioni and 2 ventricular pacing wires were brought out through a separate stab wound incision. The wounds were approximated with #2 Vicryl sutures, and the groin and subcuta neous tissue in a standard fashion. Transesophageal echo revealed unchanged ventricular function with no residual air, and a central leak in the valve consistent with an [place] pericardial valve, and tiny needle hole suture leaks in 2 si hoda on the anulus. These were considered extremely small, not hemodynamic, and would likely close wi th time. Patient was extubated in the operating room return. It should be noted, the patient was di alyzed throughout the cardiopulmonary bypass run in order to maintain low potassiums. Patient was re turned to ICU in stable condition. /[id number]/MODL
[2017-08-02] MEDS: fentaNYL 100 MCG/2 ML INJ IVP PRN ×3 (20:26→22:16)
[2017-08-02] MEDS ORDERED: INSULIN REGULAR HUMAN 100 UNIT/ML IV ONE (20:45)
[2017-08-02] MEDS: D50W 25 GM/50 ML SYR IVP PRN ×2 (20:47→23:03)
[2017-08-02] MEDS ORDERED: CALCIUM GLUCONATE 50 ML IV ONE (21:00)
[2017-08-02] MEDS: SENNOSIDES/DOCUSATE SODIUM TAB PO SCH (21:15)
[2017-08-03] MEDS: niCARdipine/NACL 200 ML IV SCH ×2 (00:22→03:43)
[2017-08-03] MEDS: HYDROCODONE/APAP 5/325 TAB PO PRN ×3 (01:00→20:20)
[2017-08-03] MEDS: fentaNYL 100 MCG/2 ML INJ IVP PRN ×2 (03:36→06:10)
[2017-08-03 04:23] LABS: PLATELET COUNT 82 10^3/uL (150-400)
[2017-08-03] MEDS ORDERED: HEPARIN 5,000 UNIT/0.5 ML SYR SC SCH (06:00)
[2017-08-03] MEDS: KETOROLAC 15 MG/1 ML SDV IVP SCH ×3 (06:10→17:38)
[2017-08-03 07:42] LABS: INR 1.21 (0.83-1.16); PROTIME(PATIENT) 15.5 SEC (12.0-15.0)
--- NOTE | 2017-08-03 07:53 | SOAPPROG ---
SOAP Progress Note Assessment/Plan: POD #1: MICS MV replacement with #25 Ric bioprosthesis, RCFA/V cannulation with primary repair, HD while on CPB Severe functional MR s/p MVR with bioprosthesis - AL/FC out. CTs likely to bulb suction. Coumadin for valve thromboprophylaxis, goal 2-3, duration for 3 months. Acute blood loss anemia - chest tube with increased sanguineous output yesterday afternoon, now lower output and serosanguineous in quality. HCT 21 this morning without symptoms. No blood transfused. Continue to monitor. Thrombocytopenia - secondary to CPB. Will monitor. Hypertensive dilated cardiomyopathy with normal systolic function - BP meds to be resumed as needed. ESRD on HD 3x/week - Dialyzed yesterday for hyperkalemia. Further mgmt as per renal. DVT prophylaxis - Continue SCDs. Heparin SQ on hold until platelets > 100. Subjective: Denies pain/SOB. Objective: Vital Signs Temp Pulse Resp BP Pulse Ox 36.0 C 78 13 116/46 L 98 08/02/17 16:00 08/03/17 06:00 08/03/17 06:00 08/03/17 06:00 08/03/17 06:00 Laboratory Results 08/03/17 04:10 08/03/17 07:29 08/02/17 08/03/17 08/04/17 05:59 05:59 05:59 Intake Total 1531 Output Total 1470 Balance 61 PT 15.5 SEC (12.0-15.0) H 08/03/17 07:29 INR 1.21 (0.83-1.16) H 08/03/17 07:29 Physical Exam - Physical Exam General Appearance: WD/WN, alert, no apparent distress EENT: No scleral icterus (R), No scleral icterus (L) Neck: normal inspection Respiratory: No respiratory distress Cardiac/Chest: regular rate, rhythm Abdomen: non-tender, soft, No distended Skin: normal color, warm/dry Extremities: No pedal edema Neuro/Psych: no motor/sensory deficits, alert, normal mood/affect, oriented x 3 ICD10 Worksheet Patient Problems: Problems Problem Status Onset S/P mitral valve replacement with bioprosthetic valve Acute Admission for dialysis Acute Anemia Acute CHF (congestive heart failure) Acute CKD (chronic kidney disease) stage V requiring chronic dialysis Acute ESRD (end stage renal disease) Acute Hyperkalemia Acute Hypertensive urgency Acute Hypoxemia Acute Left ankle sprain Acute Pulmonary edema Acute Shortness of breath Acute Syncope Acute
[2017-08-03] MEDS ORDERED: ceFAZolin 2 GM/SWFI 2 GM/20 ML SYR IVP SCH ×2 (08:00→18:00)
[2017-08-03] MEDS: ASPIRIN 81 MG CHEWABLE TAB PO SCH (08:40)
[2017-08-03] MEDS: PANTOPRAZOLE SODIUM 40 MG TAB PO SCH (08:40)
[2017-08-03] MEDS: SENNOSIDES/DOCUSATE SODIUM TAB PO SCH ×2 (08:40→20:19)
[2017-08-03] MEDS: MUPIROCIN 2% 22 GM OINT NS SCH ×2 (08:42→20:29)
--- NOTE | 2017-08-03 08:50 | PDINTPN ---
Dredge Worker Progress Note Assessment/Plan: Assessment/plan: * Status post minimally invasive mitral valve replacement * End-stage renal disease-on dialysis * Chest tube-still with high, bloody drainage * Pain-well controlled * Nutrition-adequate * PT/OT * Out of bed Case discussed with Nursing and surgery Subjective: Sitting up in chair. Pain is tolerable. Objective: Vital Signs Temp Pulse Resp BP Pulse Ox 36.0 C 78 13 116/46 L 98 08/02/17 16:00 08/03/17 06:00 08/03/17 06:00 08/03/17 06:00 08/03/17 06:00 Laboratory Results 08/03/17 04:10 08/03/17 07:29 08/02/17 08/03/17 08/04/17 05:59 05:59 05:59 Intake Total 1531 Output Total 1470 Balance 61 PT 15.5 SEC (12.0-15.0) H 08/03/17 07:29 INR 1.21 (0.83-1.16) H 08/03/17 07:29 Chest [id number] by myself. Central line in good position. Chest tube in apex. Atelectasis in the right midlung field. - Time Spent With Patient Time Spent With Patient: 25 min of time spent with patient, over half involved with coordination of care and counseling. Physical Exam - Physical Exam General Appearance: alert, no apparent distress EENT: PERRL/EOMI, normal ENT inspection Neck: non-tender, full range of motion, supple, normal inspection Respiratory: crackles (Right), No respiratory distress, No wheezing Cardiac/Chest: normal peripheral pulses, regular rate, rhythm, systolic murmur Abdomen: normal bowel sounds, non-tender, soft Male Genitalia: deferred Rectal: deferred Skin: normal color, warm/dry Extremities: normal range of motion, non-tender, normal inspection, normal capillary refill Neuro/Psych: alert, normal mood/affect, oriented x 3 ICD10 Worksheet Patient Problems: Problems Problem Status Onset S/P mitral valve replacement with bioprosthetic valve Acute Admission for dialysis Acute Anemia Acute CHF (congestive heart failure) Acute CKD (chronic kidney disease) stage V requiring chronic dialysis Acute ESRD (end stage renal disease) Acute Hyperkalemia Acute Hypertensive urgency Acute Hypoxemia Acute Left ankle sprain Acute Pulmonary edema Acute Shortness of breath Acute Syncope Acute
[2017-08-03] MEDS: traMADol 50 MG TAB PO PRN ×2 (12:45→18:12)
[2017-08-03] MEDS: ONDANSETRON DISINTEGRATING 4 MG TAB PO PRN (12:48)
[2017-08-03] MEDS ORDERED: WARFARIN SODIUM 5 MG TAB PO ONE (16:00)
--- NOTE | 2017-08-03 20:26 | SOAPPROG ---
JASON Progress Note Assessment/Plan: Assessment: 1. ESRD - -Stable with dialysis treatments -Next HD tomorrow -LUE AVF appears patent 2. Hyperkalemia - -Due to cardioplegia during MVR on background of ESRD, also received blood products -Had HD x 2 yesterday and again this AM -Levels improved -Renal diet 3. Severe MR -s/p MVR -Per cards Plan: 08/03/17 20:23 08/03/17 20:26 Subjective: Feels well. Tolerated HD treatments without complaint. Objective: Vital Signs Temp Pulse Resp BP Pulse Ox 36.8 C 91 14 118/60 96 08/03/17 18:00 08/03/17 18:00 08/03/17 18:00 08/03/17 18:00 08/03/17 18:00 Laboratory Results 08/03/17 04:10 08/03/17 11:55 08/02/17 08/03/17 08/04/17 05:59 05:59 05:59 Intake Total 1531 680 Output Total 1470 95 Balance 61 585 PT 15.5 SEC (12.0-15.0) H 08/03/17 07:29 INR 1.21 (0.83-1.16) H 08/03/17 07:29 Physical Exam - Physical Exam General Appearance: WD/WN, alert, no apparent distress Respiratory: normal breath sounds Cardiac/Chest: regular rate, rhythm, other (click) Abdomen: non-tender, soft Extremities: other (LUE AVF +br/thrill), No swelling ICD10 Worksheet Patient Problems: Problems Problem Status Onset S/P mitral valve replacement with bioprosthetic valve Acute Admission for dialysis Acute Anemia Acute CHF (congestive heart failure) Acute CKD (chronic kidney disease) stage V requiring chronic dialysis Acute ESRD (end stage renal disease) Acute Hyperkalemia Acute Hypertensive urgency Acute Hypoxemia Acute Left ankle sprain Acute Pulmonary edema Acute Shortness of breath Acute Syncope Acute
[2017-08-04] MEDS: KETOROLAC 15 MG/1 ML SDV IVP SCH ×4 (00:04→17:00)
[2017-08-04] MEDS: HYDROCODONE/APAP 5/325 TAB PO PRN ×5 (02:27→18:41)
[2017-08-04 03:21] LABS: INR 1.42 (0.83-1.16); PROTIME(PATIENT) 17.5 SEC (12.0-15.0)
--- NOTE | 2017-08-04 07:47 | SOAPPROG ---
SOAP Progress Note Assessment/Plan: POD#2: MICS MV replacement with #25 Magna bioprosthesis, RCFA/V cannulation with primary repair, HD while on CPB Severe functional MR s/p MVR with bioprosthesis - CT to suction d/t large left ptx. Coumadin for valve thromboprophylaxis, goal 2-3, duration for 3 months. Acute blood loss anemia - minimal serous drainage this morning. HCT drifting lower. Will transfuse 1 U PRBC this morning. Last transfusion on POD #0. Thrombocytopenia - secondary to CPB. Will monitor. Right pneumothorax - Chest tube connected to suction. Will repeat CXR. No respiratory distress. No air leak appreciated. Hypertensive dilated cardiomyopathy with normal systolic function - BP meds to be resumed as needed. ESRD on HD 3x/week - Dialyzed yesterday for hyperkalemia. Will hold on HD this morning as K in normal range. Plan to restart tomorrow. DVT prophylaxis - Continue SCDs. Heparin SQ on hold until platelets > 100. Subjective: Denies SOB. Pain near thoracotomy incision. Objective: Vital Signs Temp Pulse Resp BP Pulse Ox 36.7 C 97 18 137/71 H 93 08/04/ 04:00 08/04/17 04:00 08/04/17 04:00 08/04/17 04:00 08/04/17 04:00 Laboratory Results 08/04/17 03:05 08/04/17 03:05 08/03/08/04/17 08/05/17 05:59 05:59 05:59 Intake Total 1531 880 Output Total 1470 295 Balance 61 585 PT 17.5 SEC (12.0-15.0) H 08/04/17 03:05 INR 1.42 (0.83-1.16) H 08/04/17 03:05 Physical Exam - Physical Exam General Appearance: WD/WN, alert, no apparent distress EENT: No scleral icterus (R), No scleral icterus (L) Neck: normal inspection Respiratory: No respiratory distress Cardiac/Chest: regular rate, rhythm Abdomen: non-tender, soft, No distended Skin: normal color, warm/dry Extremities: No pedal edema Neuro/Psych: no motor/sensory deficits, alert, normal mood/affect, oriented x 3 ICD10 Worksheet Patient Problems: Problems Problem Status Onset S/P mitral valve replacement with bioprosthetic valve Acute Admission for dialysis Acute Anemia Acute CHF (congestive heart failure) Acute CKD (chronic kidney disease) stage V requiring chronic dialysis Acute ESRD (end stage renal disease) Acute Hyperkalemia Acute Hypertensive urgency Acute Hypoxemia Acute Left ankle sprain Acute Pulmonary edema Acute Shortness of breath Acute Syncope Acute
[2017-08-04] MEDS: SENNOSIDES/DOCUSATE SODIUM TAB PO SCH ×2 (09:23→21:38)
[2017-08-04] MEDS: ASPIRIN 81 MG CHEWABLE TAB PO SCH (09:23)
[2017-08-04] MEDS: PANTOPRAZOLE SODIUM 40 MG TAB PO SCH (09:23)
[2017-08-04] MEDS: MUPIROCIN 2% 22 GM OINT NS SCH (09:25)
[2017-08-04] MEDS: ONDANSETRON DISINTEGRATING 4 MG TAB PO PRN (12:00)
--- NOTE | 2017-08-04 12:53 | ASMTCMCOM ---
CM Note CM Note Notes: Chart reviewed. Patient s/p AVR. Chronic medical problems. Lives with family. PT and OT determinations pending. CM available if needs identified. Date Signed: 08/04/2017 12:53 PM Electronically Signed By:Leandra Bush RN
[2017-08-04] MEDS ORDERED: WARFARIN SODIUM 5 MG TAB PO ONE (16:00)
[2017-08-04] MEDS ORDERED: EPOETIN ALFA 10,000 UNIT/ML VIAL SC SCH (16:30)
--- NOTE | 2017-08-04 16:31 | SOAPPROG ---
JASON Progress Note Assessment/Plan: Assessment: 1. ESRD - -Stable with dialysis treatments -Repeat HD today, anticipate next treatment will be Saturday but monitor labs tomorrow -LUE AVF appears patent 2. Hyperkalemia - -Due to cardioplegia during MVR on background of ESRD, also received blood products -Had HD x 2 08/02 and again 08/03, next today -Levels improved -Renal diet 3. Severe MR -s/p MVR -Per cards 4. Anemia - -Periodic transfusions -Will give dose EPO 10,000 units SQ today, cont weekly Plan: 08/04/17 16:28 08/04/17 16:29 08/04/17 16:30 Subjective: Had R PTX this morning but resolved with CT to suction. Seen walking the halls this afternoon, feels well without CP/SOB. No HD complaints. Objective: Vital Signs Temp Pulse Resp BP Pulse Ox 36.8 C 89 18 145/98 H 95 08/04/17 12:00 08/04/17 12:00 08/04/17 12:00 08/04/17 12:00 08/04/17 12:00 Laboratory Results 08/04/17 03:05 08/04/17 03:05 08/03/17 08/04/17 08/05/17 05:59 05:59 05:59 Intake Total 1531 880 Output Total 1470 295 Balance 61 585 PT 17.5 SEC (12.0-15.0) H 08/04/17 03:05 INR 1.42 (0.83-1.16) H 08/04/17 03:05 Physical Exam - Physical Exam General Appearance: WD/WN, alert, no apparent distress Respiratory: lungs clear, normal breath sounds Cardiac/Chest: regular rate, rhythm Abdomen: non-tender, soft Extremities: other (LUE AVF +br/thrill), No swelling ICD10 Worksheet Patient Problems: Problems Problem Status Onset S/P mitral valve replacement with bioprosthetic valve Acute Admission for dialysis Acute Anemia Acute CHF (congestive heart failure) Acute CKD (chronic kidney disease) stage V requiring chronic dialysis Acute ESRD (end stage renal disease) Acute Hyperkalemia Acute Hypertensive urgency Acute Hypoxemia Acute Left ankle sprain Acute Pulmonary edema Acute Shortness of breath Acute Syncope Acute
[2017-08-04] MEDS: traMADol 50 MG TAB PO PRN (21:37)
[2017-08-05] MEDS: KETOROLAC 15 MG/1 ML SDV IVP SCH ×2 (00:02→05:51)
[2017-08-05] MEDS: HYDROCODONE/APAP 5/325 TAB PO PRN ×6 (00:02→23:55)
[2017-08-05 05:16] LABS: INR 3.58 (0.83-1.16); PROTIME(PATIENT) 35.5 SEC (12.0-15.0)
[2017-08-05] MEDS: METOPROLOL TARTRATE 25 MG TAB PO SCH ×3 (06:05→20:31)
--- NOTE | 2017-08-05 07:03 | SOAPPROG ---
SOAP Progress Note Assessment/Plan: POD#3: MICS MV replacement with #25 Magna bioprosthesis, RCFA/V cannulation with primary repair, HD while on CPB Severe functional MR s/p MVR with bioprosthesis - Coumadin for valve thromboprophylaxis, goal 2-3, duration for 3 months. Acute blood loss anemia - stable s/p 4U packed red blood cells. Thrombocytopenia - secondary to CPB. Will monitor. Right pneumothorax - On water seal. Likely to remove CT 08/06. Hypertensive dilated cardiomyopathy with normal systolic function - Slow reintroduction of BP meds. ESRD on HD 3x/week - As per renal. DVT prophylaxis - Continue SCDs. Disposition - plan for home Saturday. Subjective: Denies pain/sob. Objective: Vital Signs Temp Pulse Resp BP Pulse Ox 37.0 C 89 20 149/111 H 96 08/05/17 04:00 08/05/17 06:05 08/05/17 04:00 08/05/17 06:05 08/05/17 04:00 Laboratory Results 08/05/17 04:55 08/05/17 04:55 08/04/17 08/05/17 08/06/17 05:59 05:59 05:59 Intake Total 880 980 Output Total 295 480 Balance 585 500 PT 35.5 SEC (12.0-15.0) H D 08/05/17 04:55 INR 3.58 (0.83-1.16) H 08/05/17 04:55 Physical Exam - Physical Exam General Appearance: WD/WN, alert, no apparent distress EENT: No scleral icterus (R), No scleral icterus (L) Neck: normal inspection Respiratory: No respiratory distress Cardiac/Chest: regular rate, rhythm Abdomen: non-tender, soft, No distended Skin: normal color, warm/dry Extremities: No pedal edema Neuro/Psych: no motor/sensory deficits, alert, normal mood/affect, oriented x 3 ICD10 Worksheet Patient Problems: Problems Problem Status Onset S/P mitral valve replacement with bioprosthetic valve Acute Admission for dialysis Acute Anemia Acute CHF (congestive heart failure) Acute CKD (chronic kidney disease) stage V requiring chronic dialysis Acute ESRD (end stage renal disease) Acute Hyperkalemia Acute Hypertensive urgency Acute Hypoxemia Acute Left ankle sprain Acute Pulmonary edema Acute Shortness of breath Acute Syncope Acute
[2017-08-05] MEDS: SENNOSIDES/DOCUSATE SODIUM TAB PO SCH ×2 (08:50→20:31)
[2017-08-05] MEDS: PANTOPRAZOLE SODIUM 40 MG TAB PO SCH (08:51)
[2017-08-05] MEDS: ASPIRIN 81 MG CHEWABLE TAB PO SCH (08:51)
[2017-08-05] MEDS ORDERED: LISINOPRIL 20 MG TAB PO SCH (09:00)
[2017-08-05] MEDS: traMADol 50 MG TAB PO PRN ×2 (10:53→17:55)
--- NOTE | 2017-08-05 11:22 | ASMTCMCOM ---
CM Note CM Note Notes: Still waiting on PT rec but pt up ambulating in halls independantly. Anticipate that pt will dc home w/family, may not have any CM needs but will continue to follow. Progress notes indicate dc likely this saturday. Discussed w/RN. Date Signed: 08/05/2017 11:22 AM Electronically Signed By:Ale Gallardo RN
[2017-08-05] MEDS: ALPRAZolam 0.25 MG TAB PO PRN ×2 (12:57→19:00)
--- NOTE | 2017-08-05 13:39 | ECHO ---
[email or web address] [address] [address] Main: [phone] Fax: Transthoracic Echocardiogram Name: CONRADO ESPINOSA MR#: [id number] Study Date: 08/05/2017 Study Time: 12:25 PM Date of : 1990 Age: 26 year(s) Height: 177.8 cm (70 in.) Weight: 70.76 kg (156 lb.) BSA: 1.88 m2 Gender: Male Examination: Echo Indication: S/P MVR #25 Magna bioprosthesis Image Quality: Contrast: Requested by: Caleb Dumont BP: 157 mmHg/101 mmHg Heart Rate: Rhythm: Normal sinus rhythm Indication: S/P MVR #25 Magna bioprosthesis Procedure Staff Architectural Superintendent: Anne Christiansen Physician: Abdoulaye Neville Requesting Provider: Conclusions: No pericardial effusion. Ejection fraction 61% with septal dyskinesis consistent with prior open heart surgery. Normally functioning mitral valve prosthesis. Elevated mean gradient of 12 mm of mercury across the valve. Mitral valve leaflets appear to be opening normally. moderate tricuspid regurgitation with elevated right ventricular systolic pressure of 53 mm of mercury. Measurements: Chambers Valvular Assessment AV/MV Valvular Assessment TV/PV Normal Normal Normal Name Value Range Name Value Range Name Value Range Ao Tiffanie (MM): 3.1 cm (2.2 cm-3.7 AV Vmax: 1.75 m/s (1 m/s-1.7 TR Vmax: 3.26 mm/s ( - ) cm) m/s) TR PGmax: 43 mmHg ( - ) IVSd (2D): 1.1 cm (0.6 cm-1.1 AV maxP mmHg ( - ) syst. PAP: 53 mmHg ( - ) cm) LVOT Vmax: 1.17 m/s (0.7 m/s-1.1 PV Vmax: 1.22 m/s (0.6 m/s-0.9 LVDd (2D): 5.8 cm (4.2 cm-5.9 m/s) m/s) cm) MV meanP mmHg ( - ) PV PGmax: 6 mmHg ( - ) LVDs (2D): 4.4 cm (2.1 cm-4 MV PHT: 0.134 s ( - ) cm) MVA (PHT): 1.6 s ( - ) LVPWd (2D): 1.2 cm (0.6 cm-1 cm) LVEF (BP): 61 % (>=55 %) RVDd(2D): 4.0 cm (1.9 cm-3.8 cmmm) Continued Measurements: Chambers Valvular Assessment AV/MV Valvular Assessment TV/PV Name Value Name Value Name Value LADs Lon.9 cm MV VTI: 59.60 cm CVP (est.): 10 mmHg LA Area: 21.3 cm2 LA Volume: 65 ml Patient: CONRADO ESPINOSA Study Date: 08/05/2017 Page 1 of 2 12:25 PM LA Volume Index: 34.6 ml/m2 TAPSE: 1.5 cm RA Area: 17.4 cm2 Findings: Left Ventricle: Left ventricle upper limits of normal. Mild concentric LV hypertrophy. Normal global systolic LV function. EF is 61 %. There is paradoxic septal motion suggestive of bundle branch block, paced cardiac rhythm, or prior cardiac surgery. Unable to assess diastolic dysfunction. Right Ventricle: Mildly dilated right ventricle. Mildly reduced RV function. Left Atrium: The left atrium is mildly dilated. Right Atrium: The right atrium is normal in size. Mitral Valve: A bioprosthetic mitral valve is in place.. Prosthetic mitral valve gradients are elevated. Mean gradient across the valve 12mmHg. Stich or chordea noted on the LV side of the MV prosthesis. No significant mitral regurgitation noted. Aortic Valve: The aortic valve is tri-leaflet. The aortic valve is normal in appearance and function. There is no aortic valve regurgitation. No aortic valve stenosis is present. Tricuspid Valve: The tricuspid valve appears normal. Moderate tricuspid regurgitation is present. Right ventricular systolic pressure measures 53mmHg. The pulmonary artery pressure is moderately increased. Pulmonic Valve: The pulmonic valve is normal in appearance and function. Mild pulmonic valve regurgitation is noted. Aorta: Normal size aortic root measuring 3.1 cm. IVC: The IVC is dilated. Pericardium: Trivial pericardial effusion. (No Signature Object) Patient: CONRADO ESPINOSA Study Date: 08/05/2017 Page 2 of 2 12:25 PM [id number]
--- NOTE | 2017-08-05 17:18 | SOAPPROG ---
JASON Progress Note Assessment/Plan: Assessment: 1. ESRD - -Stable with dialysis treatments -Next HD treatment Saturday - AVF appears patent 2. Hyperkalemia - -Due to cardioplegia during MVR on background of ESRD, also received blood products -Had HD x 2 08/02 and again 08/03, 08/04 -Levels improved -Renal diet (ok to liberalize phos intake per pt request but continue low K+) 3. Severe MR -s/p MVR -Per cards 4. Anemia - -Periodic transfusions -Gave dose EPO 10,000 units SQ 08/04, cont weekly -Also rec'd RBCs 08/04, Hgb better today Plan: 08/05/17 17:16 08/05/17 17:18 Subjective: Feels well. Up and around w/o CP/SOB. Objective: Vital Signs Temp Pulse Resp BP Pulse Ox 37.0 C 83 15 151/102 H 91 L 08/05/17 15:13 08/05/17 15:13 08/05/17 15:13 08/05/17 15:13 08/05/17 15:13 Laboratory Results 08/05/17 04:55 08/05/17 04:55 08/04/17 08/05/17 08/06/17 05:59 05:59 05:59 Intake Total 880 980 500 Output Total 295 480 Balance 585 500 500 PT 35.5 SEC (12.0-15.0) H D 08/05/17 04:55 INR 3.58 (0.83-1.16) H 08/05/17 04:55 ICD10 Worksheet Patient Problems: Problems Problem Status Onset S/P mitral valve replacement with bioprosthetic valve Acute Admission for dialysis Acute Anemia Acute CHF (congestive heart failure) Acute CKD (chronic kidney disease) stage V requiring chronic dialysis Acute ESRD (end stage renal disease) Acute Hyperkalemia Acute Hypertensive urgency Acute Hypoxemia Acute Left ankle sprain Acute Pulmonary edema Acute Shortness of breath Acute Syncope Acute
[2017-08-05] MEDS ORDERED: METOPROLOL TARTRATE 25 MG TAB PO ONE (23:02)
[2017-08-06 04:28] LABS: INR 3.89 (0.83-1.16); PROTIME(PATIENT) 37.8 SEC (12.0-15.0)
[2017-08-06] MEDS: PANTOPRAZOLE SODIUM 40 MG TAB PO SCH (08:08)
--- NOTE | 2017-08-06 08:23 | SOAPPROG ---
SOAP Progress Note Assessment/Plan: Assessment: POD#4 MICS MVR with #25 Magna bioprosthesis, RCFA/V cannulation with primary repair, HD while on CPB Severe functional MR s/p MVR with bioprosthesis - Coumadin for valve thromboprophylaxis, goal 2-3, duration for 3 months. Acute blood loss anemia with thrombocytopenia and coagulopathy - Stable s/p 4U packed red blood cells. No evidence active bleeding. Platelet rebound noted. Auto-anticoagulated. VTE prophylaxis with SCDs. Right pneumothorax - Appears to have resolved. Hypertensive dilated cardiomyopathy with normal systolic function - Slow reintroduction of BP meds. ESRD on HD 3x/week - As per renal. Plan: Chest tube clamping trial. Repeat CXR in am and remove tube if no PTX. Consider vit K in am if INR cont to rise. Switch back to metop succinate. Resume home doses Coreg and hydralazine. Disposition - plan for home Saturday. 08/06/17 08:20 Subjective: Doing ok. Eager to get out of hospital and disappointed that tube to be retained. Only getting about 2 hrs of relief from Meldrim and requests switch to Percocet which he has used in the past. Objective: Vital Signs Temp Pulse Resp BP Pulse Ox 36.8 C 78 16 175/107 H 94 08/06/17 04:00 08/06/17 04:00 08/06/17 04:00 08/06/17 08:08 08/06/17 04:00 Laboratory Results 08/06/17 03:46 08/06/17 03:46 08/05/17 08/06/17 08/07/17 05:59 05:59 05:59 Intake Total 980 900 Output Total 480 290 Balance 500 610 PT 37.8 SEC (12.0-15.0) H 08/06/17 03:46 INR 3.89 (0.83-1.16) H 08/06/17 03:46 Holding SR. Upward creep in SBP for which BB inc. Stable sats off O2. CXR-> No PTX. CTOP at removal criteria. Balanced I/Os. Plt count rebounding. INR remains elev. - Pending Discharge Pending Discharge Within 24 Hours: Yes Pending Discharge Date: 08/07/17 Pending Discharge Time: 11:00 Physical Exam - Physical Exam General Appearance: alert, no apparent distress Respiratory: lungs clear, other (rt pleural courtney to pleurovac, serosang drainage, no tidal, no air leak) Cardiac/Chest: regular rate, rhythm (hyperdynamic), other (rt thoracot and rt groin CDI) Abdomen: non-tender, soft Extremities: other (no visible edema) ICD10 Worksheet Patient Problems: Problems Problem Status Onset S/P mitral valve replacement with bioprosthetic valve Acute Admission for dialysis Acute Anemia Acute CHF (congestive heart failure) Acute CKD (chronic kidney disease) stage V requiring chronic dialysis Acute ESRD (end stage renal disease) Acute Hyperkalemia Acute Hypertensive urgency Acute Hypoxemia Acute Left ankle sprain Acute Pulmonary edema Acute Shortness of breath Acute Syncope Acute
[2017-08-06] MEDS: HYDROCODONE/APAP 5/325 TAB PO PRN ×2 (08:42→22:24)
[2017-08-06] MEDS: ALPRAZolam 0.25 MG TAB PO PRN ×3 (08:43→20:44)
[2017-08-06] MEDS ORDERED: METOPROLOL TARTRATE 50 MG TAB PO ONE (09:00)
[2017-08-06] MEDS ORDERED: METOPROLOL TARTRATE 50 MG TAB PO SCH (09:00)
--- NOTE | 2017-08-06 09:24 | SOAPPROG ---
JASON Progress Note Assessment/Plan: Assessment:Plan: ESRD-stable on Hd -normally MWF at [facility] -next Hd tomorrow to be on outpatient schedule -will make as first case so that he can be discharged after treatment if so desired CV-per Dr. Farr -chest tube in place Dispo-pending 08/06/17 09:21 Subjective: breathing better, feels good, exercise tolerance better Objective: Vital Signs Temp Pulse Resp BP Pulse Ox 36.8 C 78 16 175/107 H 94 08/06/17 04:00 08/06/17 04:00 08/06/17 04:00 08/06/17 08:08 08/06/17 04:00 Laboratory Results 08/06/17 03:46 08/06/17 03:46 08/05/17 08/06/17 08/07/17 05:59 05:59 05:59 Intake Total 980 900 Output Total 480 290 Balance 500 610 PT 37.8 SEC (12.0-15.0) H 08/06/17 03:46 INR 3.89 (0.83-1.16) H 08/06/17 03:46 Physical Exam - Physical Exam General Appearance: WD/WN, alert, no apparent distress EENT: normal ENT inspection Neck: normal inspection Respiratory: decreased breath sounds (1/4 bilaterally) Cardiac/Chest: regular rate, rhythm, No diastolic murmur, No systolic murmur Abdomen: normal bowel sounds, non-tender Skin: normal color, warm/dry Extremities: other (AVF patent), No swelling Neuro/Psych: no motor/sensory deficits, alert, normal mood/affect ICD10 Worksheet Patient Problems: Problems Problem Status Onset S/P mitral valve replacement with bioprosthetic valve Acute Admission for dialysis Acute Anemia Acute CHF (congestive heart failure) Acute CKD (chronic kidney disease) stage V requiring chronic dialysis Acute ESRD (end stage renal disease) Acute Hyperkalemia Acute Hypertensive urgency Acute Hypoxemia Acute Left ankle sprain Acute Pulmonary edema Acute Shortness of breath Acute Syncope Acute
[2017-08-06] MEDS: hydrALAZINE 25 MG TAB PO SCH ×2 (09:39→15:44)
[2017-08-06] MEDS: SENNOSIDES/DOCUSATE SODIUM TAB PO SCH ×2 (09:53→20:45)
[2017-08-06] MEDS ORDERED: hydrALAZINE 20 MG/ML VIAL IVP PRN (10:00)
[2017-08-06] MEDS ORDERED: OXYCODONE/APAP 5/325 TAB PO PRN (14:00)
[2017-08-06] MEDS: OXYCODONE/APAP 5/325 TAB PO PRN ×2 (14:06→19:17)
[2017-08-06] MEDS: CARVEDILOL 25 MG TAB PO SCH (18:20)
[2017-08-07 05:01] LABS: INR 1.96 (0.83-1.16); PROTIME(PATIENT) 22.4 SEC (12.0-15.0)
[2017-08-07] MEDS: HYDROCODONE/APAP 5/325 TAB PO PRN ×4 (06:32→20:04)
--- NOTE | 2017-08-07 07:43 | SOAPPROG ---
SOAP Progress Note Assessment/Plan: POD#5: MICS MV replacement with #25 Magna bioprosthesis, RCFA/V cannulation with primary repair, HD while on CPB Severe functional MR s/p MVR with bioprosthesis - Coumadin for valve thromboprophylaxis, goal 2-3, duration for 3 months. Acute blood loss anemia - stable. HCT continues to drift. Likely related to ESRD rather than bleeding. Monitor. Thrombocytopenia - secondary to CPB. Improving. Right pneumothorax - CT on water seal. Clamped removed after 24 hours without obvious air leak. Plan to remove tube 08/08. Hypertensive dilated cardiomyopathy with normal systolic function - Titrate antihypertensive meds as tolerated. ESRD on HD 3x/week - As per renal. DVT prophylaxis - Continue SCDs. Disposition - plan for home when chest tube out and blood pressure better controlled. Subjective: Feels anxious today. Upset about family situation. Chest tube still painful. Objective: Vital Signs Temp Pulse Resp BP Pulse Ox 36.6 C 93 18 178/123 H 98 08/07/17 07:33 08/07/17 07:33 08/07/17 07:33 08/07/17 07:33 08/07/17 07:33 Laboratory Results 08/07/17 04:10 08/07/17 04:10 08/06/17 08/07/17 08/08/17 05:59 05:59 05:59 Intake Total 900 1330 Output Total 290 2000 Balance 610 -670 PT 22.4 SEC (12.0-15.0) H D 08/07/17 04:10 INR 1.96 (0.83-1.16) H 08/07/17 04:10 Physical Exam - Physical Exam General Appearance: WD/WN, alert, no apparent distress EENT: No scleral icterus (R), No scleral icterus (L) Neck: normal inspection Respiratory: No normal breath sounds Cardiac/Chest: regular rate, rhythm Abdomen: non-tender, soft, No distended Skin: normal color, warm/dry Extremities: No pedal edema Neuro/Psych: no motor/sensory deficits, alert, normal mood/affect, oriented x 3 ICD10 Worksheet Patient Problems: Problems Problem Status Onset S/P mitral valve replacement with bioprosthetic valve Acute Admission for dialysis Acute Anemia Acute CHF (congestive heart failure) Acute CKD (chronic kidney disease) stage V requiring chronic dialysis Acute ESRD (end stage renal disease) Acute Hyperkalemia Acute Hypertensive urgency Acute Hypoxemia Acute Left ankle sprain Acute Pulmonary edema Acute Shortness of breath Acute Syncope Acute
[2017-08-07] MEDS: ACETAMINOPHEN 325 MG TAB PO PRN (08:22)
[2017-08-07] MEDS: ALPRAZolam 0.25 MG TAB PO PRN ×3 (08:22→20:05)
--- NOTE | 2017-08-07 08:25 | SOAPPROG ---
SOANTONIA Progress Note Assessment/Plan: Assessment: ESRD POD #5 MVR HTN, needs better control Active on transplant list Plan: HD today BP better on HD today continue therapies 08/07/17 08:22 Subjective: Feeling much better than prior to MVR appetite good pain is manageable no SOB activity improving spirits good Objective: Vital Signs Temp Pulse Resp BP Pulse Ox 36.6 C 93 18 178/123 H 98 08/07/17 07:33 08/07/17 07:33 08/07/17 07:33 08/07/17 07:33 08/07/17 07:33 Laboratory Results 08/07/17 04:10 08/07/17 04:10 08/06/17 08/07/17 08/08/17 05:59 05:59 05:59 Intake Total 900 1330 Output Total 290 2000 Balance 610 -670 PT 22.4 SEC (12.0-15.0) H D 08/07/17 04:10 INR 1.96 (0.83-1.16) H 08/07/17 04:10 Physical Exam - Physical Exam General Appearance: alert, thin Respiratory: lungs clear, No rhonchi, No wheezing Cardiac/Chest: regular rate, rhythm, No edema, No friction rub Abdomen: normal bowel sounds, non-tender, soft Skin: warm/dry Extremities: No pedal edema Neuro/Psych: alert, normal mood/affect, oriented x 3 ICD10 Worksheet Patient Problems: Problems Problem Status Onset S/P mitral valve replacement with bioprosthetic valve Acute Admission for dialysis Acute Anemia Acute CHF (congestive heart failure) Acute CKD (chronic kidney disease) stage V requiring chronic dialysis Acute ESRD (end stage renal disease) Acute Hyperkalemia Acute Hypertensive urgency Acute Hypoxemia Acute Left ankle sprain Acute Pulmonary edema Acute Shortness of breath Acute Syncope Acute
[2017-08-07] MEDS ORDERED: METOPROLOL SUCCINATE XR 25 MG TAB PO SCH (09:00)
[2017-08-07] MEDS: SENNOSIDES/DOCUSATE SODIUM TAB PO SCH ×2 (11:10→20:05)
[2017-08-07] MEDS: PANTOPRAZOLE SODIUM 40 MG TAB PO SCH (11:11)
[2017-08-07] MEDS: CARVEDILOL 25 MG TAB PO SCH ×2 (11:11→18:15)
[2017-08-07] MEDS ORDERED: FUROSEMIDE 80 MG TAB PO SCH (13:30)
--- NOTE | 2017-08-07 13:53 | SOAPPROG ---
JASON Progress Note Assessment/Plan: Assessment: He is postoperative day 5 following minimally invasive mitral valve replacement surgery. He has a history of drug refractory hypertension and end-stage renal disease on hemodialysis. He has been compliant with dialysis and his medications as an outpatient. He is extraordinarily anxious and depressed at the present time. Plan: 1. I will restart his outpatient Lasix 80 mg twice daily. 2. I have stopped clonidine and prescribed minoxidil 2.5 mg twice daily. 3. We may increase his Coreg up to 50 mg twice daily if needed. 4. He will continue taking amlodipine. 5. I increased his Xanax up to 0.5 mg 3 times daily. 6. It may be useful to consult Hospital Medicine regarding optimal therapy for his depression/anxiety. 08/07/17 13:52 Subjective: The patient was seen and examined. His chart was reviewed. I have seen him during previous hospitalizations. He has end-stage renal disease related to hypertension, refractory hypertension and a history of a nonischemic cardiomyopathy with functional mitral regurgitation. He is now postoperative day 5 from minimally invasive mitral valve replacement. He has done well from a surgical perspective. He has had continued and drug refractory hypertension during this hospitalization with systolic blood pressures in the 160s to 180s. He notes that his blood pressures are always high. He has not had any episodes of hypotension associated with dialysis. He states he has been very depressed. His anxiety has been through the roof. He was often times tearful during my interview. Objective: Vital Signs Temp Pulse Resp BP Pulse Ox 36.8 C 93 14 163/116 H 93 08/07/17 11:18 08/07/17 11:18 08/07/17 11:18 08/07/17 11:18 08/07/17 11:18 Laboratory Results 08/07/17 04:10 08/07/17 04:10 08/06/17 08/07/17 08/08/17 05:59 05:59 05:59 Intake Total 900 1330 Output Total 290 2000 Balance 610 -670 PT 22.4 SEC (12.0-15.0) H D 08/07/17 04:10 INR 1.96 (0.83-1.16) H 08/07/17 04:10 Physical Exam - Physical Exam General Appearance: WD/WN Neck: non-tender, full range of motion Respiratory: decreased breath sounds (right lung) Cardiac/Chest: regular rate, rhythm, No edema, No gallop, No JVD Peripheral Pulses: 1+: carotid (R), carotid (L) Abdomen: non-tender, soft Male Genitalia: deferred Rectal: deferred Neuro/Psych: alert, oriented x 3 ICD10 Worksheet Patient Problems: Problems Problem Status Onset S/P mitral valve replacement with bioprosthetic valve Acute Admission for dialysis Acute Anemia Acute CHF (congestive heart failure) Acute CKD (chronic kidney disease) stage V requiring chronic dialysis Acute ESRD (end stage renal disease) Acute Hyperkalemia Acute Hypertensive urgency Acute Hypoxemia Acute Left ankle sprain Acute Pulmonary edema Acute Shortness of breath Acute Syncope Acute
[2017-08-07] MEDS: FUROSEMIDE 80 MG TAB PO SCH ×2 (13:58→13:59)
[2017-08-07] MEDS: MINOXIDIL 2.5 MG TAB PO SCH ×2 (13:58→20:05)
[2017-08-07] MEDS ORDERED: WARFARIN SODIUM 1 MG TAB PO ONE (16:00)
[2017-08-07] MEDS ORDERED: hydrALAZINE 20 MG/ML VIAL IVP PRN (16:15)
[2017-08-07] MEDS: OXYCODONE/APAP 5/325 TAB PO PRN (23:36)
[2017-08-08] MEDS: ALPRAZolam 0.25 MG TAB PO PRN ×3 (00:19→15:29)
[2017-08-08] MEDS: HYDROCODONE/APAP 5/325 TAB PO PRN ×2 (03:42→08:13)
[2017-08-08] MEDS: PANTOPRAZOLE SODIUM 40 MG TAB PO SCH (08:12)
[2017-08-08] MEDS: MINOXIDIL 2.5 MG TAB PO SCH ×2 (08:13→20:59)
[2017-08-08] MEDS: FUROSEMIDE 80 MG TAB PO SCH ×2 (08:14→15:28)
[2017-08-08] MEDS: CARVEDILOL 25 MG TAB PO SCH ×2 (09:09→17:28)
--- NOTE | 2017-08-08 09:19 | SOAPPROG ---
SOAP Progress Note Assessment/Plan: Assessment: ESRD POD #6 MVR, chest tube still in place HTN, needs better control, says it gets high when he is "freaking out" Active on transplant list Plan: HD tomorrow BP better on HD pain control, stood up yesterday and tugged his chest tube, now having some pain continue therapies 08/07/17 08:22 08/08/17 09:16 Subjective: having some pain today after tugging (inadvertantly) on his chest tube yesterday when he stood up appetite good energy improving no sob nausea or vomiting spirits good Objective: Vital Signs Temp Pulse Resp BP Pulse Ox 36.8 C 95 16 153/121 H 93 08/08/17 07:51 08/08/17 07:51 08/08/17 07:51 08/08/17 07:51 08/08/17 07:51 Laboratory Results 08/08/17 03:29 08/07/17 04:10 08/07/17 08/08/17 08/09/17 05:59 05:59 05:59 Intake Total 1330 1740 Output Total 1999 1170 Balance -670 570 PT 22.4 SEC (12.0-15.0) H D 08/07/17 04:10 INR 1.96 (0.83-1.16) H 08/07/17 04:10 Physical Exam - Physical Exam General Appearance: WD/WN, alert, anxiety (says he is a bit anxious today) Respiratory: No rales, No rhonchi, No stridor, No wheezing Cardiac/Chest: regular rate, rhythm, No edema, No friction rub Abdomen: normal bowel sounds, non-tender, soft Skin: warm/dry Extremities: No swelling Neuro/Psych: alert, oriented x 3 ICD10 Worksheet Patient Problems: Problems Problem Status Onset S/P mitral valve replacement with bioprosthetic valve Acute Admission for dialysis Acute Anemia Acute CHF (congestive heart failure) Acute CKD (chronic kidney disease) stage V requiring chronic dialysis Acute ESRD (end stage renal disease) Acute Hyperkalemia Acute Hypertensive urgency Acute Hypoxemia Acute Left ankle sprain Acute Pulmonary edema Acute Shortness of breath Acute Syncope Acute
[2017-08-08 10:16] LABS: INR 1.42 (0.83-1.16); PROTIME(PATIENT) 17.5 SEC (12.0-15.0)
--- NOTE | 2017-08-08 10:51 | SOAPPROG ---
SOAP Progress Note Assessment/Plan: Assessment: POD#6 MICS MVR with #25 Magna bioprosthesis, RCFA/V cannulation with primary repair, HD while on CPB Severe functional MR - s/p tissue MVR. Antithrombotic prophylaxis with Coumadin , target INR 2-3, duration x 3 months. Acute on chronic anemia - Baseline HCT low to mid 20s. Surgical losses repleted with 4U packed red blood cells. No evidence active bleeding. Appropriate platelet rebound. VTE prophylaxis with SCDs and Coumadin. Postoperative right pneumothorax - Tiny apical PTX, stable by serial imaging. No active leak with normal tidal. Hypertensive dilated cardiomyopathy with normal systolic function - Hx poorly controlled HTN on combination therapy. Cards consulted for assistance with postop control. Home regimen alterations in progress. ESRD on HD 3x/week - As per renal. Plan: BP control per cards. Keep chest tube to WS. Coumadin 2.5 mg today. Disposition - Home when tube out and BP better controlled. 08/08/17 10:41 Subjective: Demoralized by prolonged hospitalization. Localized tube pain interfering with sleep. Tolerating light activity with ease. Objective: Vital Signs Temp Pulse Resp BP Pulse Ox 36.8 C 95 16 153/121 H 93 08/08/17 07:51 08/08/17 07:51 08/08/17 07:51 08/08/17 07:51 08/08/17 07:51 Laboratory Results 08/08/17 09:57 08/07/17 04:10 08/07/17 08/08/17 08/09/17 05:59 05:59 05:59 Intake Total 1330 1740 Output Total 2000 1170 Balance -670 570 PT 17.5 SEC (12.0-15.0) H 08/08/17 09:57 INR 1.42 (0.83-1.16) H 08/08/17 09:57 SR/ST. DBPs 100-120. Stable sats on RA. CXR -> tiny rt apical PTX and pleural effusion. CTOP at removal criteria. INR falling appropriately after held Coumadin doses. Physical Exam - Physical Exam General Appearance: alert, anxiety (excitable) Respiratory: lungs clear, other (rt courtney to pleurovac, thin mostly serous drainage, normal tidal, small air leak with cough as well as gurgling around tube at exit site. Occlusive dressing applied.) Cardiac/Chest: regular rate, rhythm, other (rt thoracotomy CDI) Abdomen: non-tender, soft Skin: warm/dry Extremities: other (no visible edema) ICD10 Worksheet Patient Problems: Problems Problem Status Onset S/P mitral valve replacement with bioprosthetic valve Acute Admission for dialysis Acute Anemia Acute CHF (congestive heart failure) Acute CKD (chronic kidney disease) stage V requiring chronic dialysis Acute ESRD (end stage renal disease) Acute Hyperkalemia Acute Hypertensive urgency Acute Hypoxemia Acute Left ankle sprain Acute Pulmonary edema Acute Shortness of breath Acute Syncope Acute
[2017-08-08] MEDS: SENNOSIDES/DOCUSATE SODIUM TAB PO SCH ×2 (10:59→20:59)
[2017-08-08] MEDS: OXYCODONE/APAP 5/325 TAB PO PRN ×2 (12:52→17:29)
--- NOTE | 2017-08-08 13:56 | SOAPPROG ---
JASON Progress Note Assessment/Plan: Assessment: He is postoperative day 5 following minimally invasive mitral valve replacement surgery. He has a history of drug refractory hypertension and end-stage renal disease on hemodialysis. He has been compliant with dialysis and his medications as an outpatient. He is extraordinarily anxious and depressed at the present time. Plan: 1. I have increased his minoxidil up to 5 mg twice daily. 2. He was started on Remeron 15 mg before bed. 3. His discharge from the hospital should not be delayed pending adequate blood pressure control. 4. He will follow up with Dr. Low in the outpatient setting to continue antihypertensive management. 08/08/17 13:55 Subjective: He is feeling a little bit better today than yesterday. He is anxious to go home. He remains in sinus rhythm on telemetry. Overall blood pressure control has improved marginally with the addition of additional antihypertensive medications yesterday. Objective: Vital Signs Temp Pulse Resp BP Pulse Ox 36.4 C 91 18 151/101 H 90 L 08/08/17 12:19 08/08/17 12:19 08/08/17 12:19 08/08/17 12:19 08/08/17 12:19 Laboratory Results 08/08/17 09:57 08/07/17 04:10 08/07/17 08/08/17 08/09/17 05:59 05:59 05:59 Intake Total 1330 1740 Output Total 2000 1170 Balance -670 570 PT 17.5 SEC (12.0-15.0) H 08/08/17 09:57 INR 1.42 (0.83-1.16) H 08/08/17 09:57 Physical Exam - Physical Exam General Appearance: WD/WN, no apparent distress Neck: non-tender, full range of motion Respiratory: crackles (In the right chest) Cardiac/Chest: regular rate, rhythm, No edema, No gallop, No JVD Peripheral Pulses: 2+: carotid (R), carotid (L) Abdomen: non-tender, soft Male Genitalia: deferred Rectal: deferred Neuro/Psych: alert, oriented x 3 ICD10 Worksheet Patient Problems: Problems Problem Status Onset Postoperative pneumothorax Acute S/P mitral valve replacement with bioprosthetic valve Acute Severe mitral regurgitation Chronic Anemia Chronic CHF (congestive heart failure) Chronic ESRD (end stage renal disease) Chronic Hypertensive urgency Chronic
[2017-08-08] MEDS ORDERED: WARFARIN SODIUM 2.5 MG TAB PO ONE (16:00)
[2017-08-08] MEDS ORDERED: HYDROCODONE/APAP 10/325 TAB PO PRN (19:59)
[2017-08-08] MEDS: MIRTAZAPINE 15 MG TAB PO SCH (20:59)
[2017-08-08] MEDS: oxyCODONE IR 5 MG TAB PO PRN (21:00)
[2017-08-09 04:09] LABS: INR 1.56 (0.83-1.16); PROTIME(PATIENT) 18.8 SEC (12.0-15.0)
[2017-08-09] MEDS: oxyCODONE IR 5 MG TAB PO PRN ×4 (04:28→17:57)
[2017-08-09] MEDS: ALPRAZolam 0.25 MG TAB PO PRN ×3 (04:29→20:07)
[2017-08-09] MEDS ORDERED: NS 100 ML IV PRN (07:36)
[2017-08-09] MEDS: MINOXIDIL 2.5 MG TAB PO SCH ×2 (08:30→20:05)
[2017-08-09] MEDS: CARVEDILOL 25 MG TAB PO SCH ×2 (08:31→17:58)
[2017-08-09] MEDS: SENNOSIDES/DOCUSATE SODIUM TAB PO SCH ×2 (08:31→20:06)
[2017-08-09] MEDS: ASPIRIN 81 MG CHEWABLE TAB PO SCH (08:31)
[2017-08-09] MEDS: FUROSEMIDE 80 MG TAB PO SCH ×2 (08:31→17:58)
[2017-08-09] MEDS: PANTOPRAZOLE SODIUM 40 MG TAB PO SCH (08:32)
--- NOTE | 2017-08-09 10:04 | SOAPPROG ---
<Jeannie Morfin - Last Filed: 08/09/17 10:11> SOAP Progress Note Assessment/Plan: Assessment: POD#7 MICS MVR with #25 Magna bioprosthesis, RCFA/V cannulation with primary repair, HD while on CPB Severe functional MR - s/p tissue MVR. Antithrombotic prophylaxis with Coumadin , target INR 2-3, duration x 3 months. Acute on chronic anemia - Baseline HCT low to mid 20s. Surgical losses repleted with 4U packed red blood cells. No evidence active bleeding. Appropriate platelet rebound. VTE prophylaxis with SCDs and Coumadin. Postoperative right pneumothorax - Tiny apical PTX, stable by serial imaging. No active leak with normal tidal. ? cont conservative management vs switch to heimlich valved cath. Hypertensive dilated cardiomyopathy with normal systolic function - Hx poorly controlled HTN on combination therapy. Cards consulted for assistance with postop control. Home regimen alterations in progress. Improvement noted. ESRD on HD 3x/week - As per renal. Plan: BP control per cards. Chest tube to suction at rest. Cont coumadin 2.5 mg daily. Disposition - Home when tube out. 08/09/17 10:00 Subjective: Tube pain, worse when sedentary. Frustrated that may spend another holiday hospitalized. Objective: Vital Signs Temp Pulse Resp BP Pulse Ox 36.8 C 104 H 16 158/104 H 91 L 08/09/17 04:00 08/09/17 08:31 08/09/17 04:00 08/09/17 08:30 08/09/17 04:00 Laboratory Results 08/08/17 09:57 08/09/17 03:40 08/08/17 08/09/17 08/10/17 05:59 05:59 05:59 Intake Total 1740 350 Output Total 1170 455 Balance 570 -105 PT 18.8 SEC (12.0-15.0) H 08/09/17 03:40 INR 1.56 (0.83-1.16) H 08/09/17 03:40 SR/ST. BP 150s/90s-100s. CXR unchanged. Physical Exam - Physical Exam General Appearance: alert, no apparent distress Respiratory: lungs clear, other (courtney to pleurovac, thin mostly serous drainage , nl tidal, one chamber air leak with cough) Cardiac/Chest: regular rate, rhythm (hyperdynamic), other (Rt thoracotomy CDI. ) Abdomen: soft Skin: warm/dry Extremities: other (no visible edema) ICD10 Worksheet Patient Problems: Problems Problem Status Onset Postoperative pneumothorax Acute S/P mitral valve replacement with bioprosthetic valve Acute Severe mitral regurgitation Chronic Anemia Chronic CHF (congestive heart failure) Chronic ESRD (end stage renal disease) Chronic Hypertensive urgency Chronic <Michelle Conde - Last Filed: 08/09/17 22:48> SOAP Progress Note Assessment/Plan: Patient seen and examined - agree with above note by Jeannie Morfin PA-C. Will attempt another clamp trial of chest tube with repeat CXR since no obvious air leak seen on repetitive deep breathing and coughing. If no PTX and no air leak on unclamping, will leave tube clamped O/N and repeat 1 more CXR - if stable, can D/C CT and D/C home. Objective: Vital Signs Temp Pulse Resp BP Pulse Ox 37.1 C 104 H 16 151/99 H 91 L 08/09/17 20:00 08/09/17 20:00 08/09/17 20:00 08/09/17 20:05 08/09/17 20:00 Laboratory Results 08/08/17 09:57 08/09/17 03:40 08/08/17 08/09/17 08/10/17 05:59 05:59 05:59 Intake Total 1740 350 600 Output Total 1170 455 770 Balance 570 -105 -170 PT 18.8 SEC (12.0-15.0) H 08/09/17 03:40 INR 1.56 (0.83-1.16) H 08/09/17 03:40
--- NOTE | 2017-08-09 10:32 | SOAPPROG ---
JASON Progress Note Assessment/Plan: Assessment: He is postoperative day 5 following minimally invasive mitral valve replacement surgery. He has a history of drug refractory hypertension and end-stage renal disease on hemodialysis. He has been compliant with dialysis and his medications as an outpatient. He is extraordinarily anxious and depressed at the present time. He appears to be doing better today. Blood pressures have improved. Plan: No changes to his medications today. He will require further up titration of his antihypertensives in the outpatient setting. I have asked him to follow up with his primary occupational hygienist Dr. Shant Low within a week of discharge. At this point we will sign off. 08/09/17 10:32 Subjective: He states he is feeling a little bit better today. He slept well after receiving Remeron last night. Blood pressures overall are improved. CT surgery continues to follow him regarding a residual small apical pneumothorax. Objective: Vital Signs Temp Pulse Resp BP Pulse Ox 36.8 C 104 H 16 158/104 H 91 L 08/09/17 04:00 08/09/17 08:31 08/09/17 04:00 08/09/17 08:30 08/09/17 04:00 Laboratory Results 08/08/17 09:57 08/09/17 03:40 08/08/17 08/09/17 08/10/17 05:59 05:59 05:59 Intake Total 1740 350 Output Total 1170 455 Balance 570 -105 PT 18.8 SEC (12.0-15.0) H 08/09/17 03:40 INR 1.56 (0.83-1.16) H 08/09/17 03:40 Physical Exam - Physical Exam General Appearance: thin Neck: non-tender, full range of motion Respiratory: chest non-tender, lungs clear Cardiac/Chest: regular rate, rhythm, other (3 component pericardial friction rub ) Peripheral Pulses: 2+: carotid (R), carotid (L) Abdomen: normal bowel sounds, non-tender, soft Male Genitalia: deferred Rectal: deferred Neuro/Psych: alert, oriented x 3 ICD10 Worksheet Patient Problems: Problems Problem Status Onset Postoperative pneumothorax Acute S/P mitral valve replacement with bioprosthetic valve Acute Severe mitral regurgitation Chronic Anemia Chronic CHF (congestive heart failure) Chronic ESRD (end stage renal disease) Chronic Hypertensive urgency Chronic
--- NOTE | 2017-08-09 13:15 | SOAPPROG ---
SOAP Progress Note Assessment/Plan: Assessment/Plan: ESRD: on HD MWF. - Will do HD today per routine. HTN: continue current meds. Anemia: on weekly epo, franck continue to monitor. Subjective: No acute events overnight. Pt is tired of being in the hospital, wants to leave and spend time with his kids. He has pain at his CT site, no other chest pain or dyspnea or swelling. Objective: Vital Signs Temp Pulse Resp BP Pulse Ox 36.8 C 96 18 153/85 H 96 08/09/17 11:44 08/09/17 11:44 08/09/17 11:44 08/09/17 11:44 08/09/17 11:44 Laboratory Results 08/08/17 09:57 08/09/17 03:40 08/08/17 08/09/17 08/10/17 05:59 05:59 05:59 Intake Total 1740 350 Output Total 1170 455 Balance 570 -105 PT 18.8 SEC (12.0-15.0) H 08/09/17 03:40 INR 1.56 (0.83-1.16) H 08/09/17 03:40 General: alert and oriented, no acute distress Eyes; EOMI, PERRL OP: clear CV: RRR Resp: nonlabored respirations on RA Abd; Soft, NT ext: no edema BLE Neuro; CN II-XII Grossly intact, no asterixis Psych: cooperative, appropriate mood and affect ICD10 Worksheet Patient Problems: Problems Problem Status Onset Postoperative pneumothorax Acute S/P mitral valve replacement with bioprosthetic valve Acute Severe mitral regurgitation Chronic Anemia Chronic CHF (congestive heart failure) Chronic ESRD (end stage renal disease) Chronic Hypertensive urgency Chronic
[2017-08-09] MEDS ORDERED: EPOETIN ALFA 10,000 UNIT/ML VIAL SC ONE (17:45)
[2017-08-09] MEDS: WARFARIN SODIUM 2.5 MG TAB PO SCH (17:59)
[2017-08-09] MEDS: ACETAMINOPHEN 325 MG TAB PO PRN (20:05)
[2017-08-09] MEDS: MIRTAZAPINE 15 MG TAB PO SCH (20:06)
[2017-08-10] MEDS: oxyCODONE IR 5 MG TAB PO PRN ×3 (02:38→11:35)
[2017-08-10] MEDS: ACETAMINOPHEN 325 MG TAB PO PRN (02:38)
[2017-08-10 04:23] LABS: INR 1.65 (0.83-1.16); PROTIME(PATIENT) 19.6 SEC (12.0-15.0)
[2017-08-10] MEDS: ALPRAZolam 0.25 MG TAB PO PRN ×2 (04:28→12:49)
--- NOTE | 2017-08-10 08:18 | SOAPPROG ---
SOAP Progress Note Assessment/Plan: Assessment: POD#8 MICS MVR with #25 Magna bioprosthesis, RCFA/V cannulation with primary repair, HD while on CPB Severe functional MR - s/p tissue MVR. Antithrombotic prophylaxis with Coumadin , target INR 2-3, duration x 3 months. Acute on chronic anemia - Baseline HCT low to mid 20s. Surgical losses repleted with 4U packed red blood cells. No evidence active bleeding. Additional PRBC to mitigate BP effect of tachycardia rather than sx. Postoperative right pneumothorax - Tiny apical PTX, stable by serial imaging. No inducible air leak this am and tube pulled. Await f/u CXR. Hypertensive dilated cardiomyopathy with normal systolic function - Hx poorly controlled HTN on combination therapy. Cards consulted for assistance with postop control. Home regimen alterations in progress. Improvement noted. ESRD on HD 3x/week - As per renal. Plan: Chest tube removed. Repeat CXR in 3 hrs. Transfuse 1u PRBC. Cont coumadin 2.5 mg daily. Disposition - Home later today pending CXR result 08/10/17 08:16 Subjective: Spent another night in recliner d/t tube pain. Considering AMA if tube remains much longer. Cont to walk independently without dizziness or decr stamina. Objective: Vital Signs Temp Pulse Resp BP Pulse Ox 37.2 C 117 H 16 150/88 H 90 L 08/10/17 04:00 08/10/17 04:00 08/10/17 04:00 08/10/17 04:00 08/10/17 04:00 Laboratory Results 08/10/17 03:26 08/10/17 03:26 08/09/17 08/10/17 08/11/17 05:59 05:59 05:59 Intake Total 350 900 Output Total 455 870 Balance -105 30 PT 19.6 SEC (12.0-15.0) H 08/10/17 03:26 INR 1.65 (0.83-1.16) H 08/10/17 03:26 Slightly more tachy this am. H/H noted to be a bit below baseline. SBPs remain a bit elev. DBPs more consistently in 80s-90s. RA sats unchanged. CXR-> small anteromedial PTX, apicolateral lung well expanded. Slow steady rise in INR. Physical Exam - Physical Exam General Appearance: alert, no apparent distress (resp) Respiratory: lungs clear, other ( CT to pleurovac, clamp released without mitchell of air, nl tidal without air leak, no air leak with cough; tube pulled with release of pocket of serosang fluid but no audible air. Immediate relief of pain and ability to take deeper breaths. ) Cardiac/Chest: regular rate, rhythm, tachycardia, other (rt thoracotomy and rt groin CDI) Abdomen: soft Skin: normal color Extremities: other (no visible edema) ICD10 Worksheet Patient Problems: Problems Problem Status Onset Postoperative pneumothorax Acute S/P mitral valve replacement with bioprosthetic valve Acute Severe mitral regurgitation Chronic Anemia Chronic CHF (congestive heart failure) Chronic ESRD (end stage renal disease) Chronic Hypertensive urgency Chronic
[2017-08-10] MEDS: MINOXIDIL 2.5 MG TAB PO SCH (09:00)
[2017-08-10] MEDS: ASPIRIN 81 MG CHEWABLE TAB PO SCH (09:01)
[2017-08-10] MEDS: FUROSEMIDE 80 MG TAB PO SCH ×2 (09:01→14:39)
[2017-08-10] MEDS: CARVEDILOL 25 MG TAB PO SCH (09:01)
[2017-08-10 09:58] VITALS: O2SAT 94
--- NOTE | 2017-08-10 09:59 | ASMTCMCOM ---
CM Note CM Note Notes: 08/10/2017 Case Management Note Reviewed chart. Pt is well known to [facility]. PT is recommending home independent. Pt lives with mom. Case Management d/c poc: home with family support with follow up as directed. Case Management available if needs change. Date Signed: 08/10/2017 09:59 AM Electronically Signed By:Lindy Ibarra RN
[2017-08-10 12:20] VITALS: BP 145/86; PULSE 105; RESP 14; TEMP 98.5
--- NOTE | 2017-08-10 13:39 | SOAPPROG ---
JASON Progress Note Assessment/Plan: Assessment: The patient is a 26 y/o M with a known h/o ESRD on HD s/p MVR. ESRD: on HD MWF. - Next HD on Saturday if still admitted, otherwise may return to [facility] HTN: continue current meds, still on lasix. Cardiology following Anemia: Transfusion 1U PRBCs today. On weekly epo, franck continue to monitor. MVR: On coumadin therapy, monitor INR closely. S/p chest tube removal today with CXR pending. 08/10/17 14:11 Subjective: Patient up to chair. States he is feeling a lot better. Contact dialysis unit yesterday and they are aware he may be returning. Objective: Vital Signs Temp Pulse Resp BP Pulse Ox 36.9 C 105 H 14 145/86 H 94 08/10/17 12:00 08/10/17 12:00 08/10/17 12:00 08/10/17 12:00 08/10/17 12:00 Laboratory Results 08/10/17 03:26 08/10/17 03:26 08/09/17 08/10/17 08/11/17 05:59 05:59 05:59 Intake Total 350 900 500 Output Total 455 870 175 Balance -105 30 325 PT 19.6 SEC (12.0-15.0) H 08/10/17 03:26 INR 1.65 (0.83-1.16) H 08/10/17 03:26 Physical Exam - Physical Exam General Appearance: WD/WN, alert, no apparent distress EENT: PERRL/EOMI, normal ENT inspection Neck: non-tender, full range of motion, supple Respiratory: chest non-tender, decreased breath sounds Cardiac/Chest: regular rate, rhythm Abdomen: normal bowel sounds, non-tender, soft Skin: normal color, warm/dry, cyanosis Extremities: normal range of motion, non-tender Neuro/Psych: no motor/sensory deficits, alert, normal mood/affect, oriented x 3 ICD10 Worksheet Patient Problems: Problems Problem Status Onset Postoperative pneumothorax Acute S/P mitral valve replacement with bioprosthetic valve Acute Severe mitral regurgitation Chronic Anemia Chronic CHF (congestive heart failure) Chronic ESRD (end stage renal disease) Chronic Hypertensive urgency Chronic
[2017-08-10] MEDS: WARFARIN SODIUM 2.5 MG TAB PO SCH (14:41)
--- NOTE | 2017-08-10 14:46 | PDDCSUM ---
Discharge Summary Discharge Summary: DATE OF ADMISSION: 08/02/17 DATE OF DISCHARGE: 08/10/17 DISPOSITION: Home, self-care PRINCIPAL ADMISSION DIAGNOSIS: Severe mitral regurgitation PRINCIPAL DISCHARGE DIAGNOSES: 1. Status post minimally invasive mitral valve replacement with a bioprosthesis 2. Acute on chronic anemia 3. Postoperative coagulopathy 4. Postoperative right pneumothorax HISTORY OF PRESENT ILLNESS: 26 yo male with ESRD, a dilated nonischemic cardiomyopathy, and recurrent admissions for decompensated systolic and diastolic CHF exacerbated by progressive mitral regurgitation and hypertensive crises, admitted for elective valvular surgery. PERTINENT PAST MEDICAL HISTORY: 1. ESRD d/t solitary kidney. Access left forearm AVF. HD 3x weekly at [facility]. Followed by Dr Rawls at [facility]. On transplant list. 2. Poorly controlled hypertension 3. Hypertensive cardiomyopathy 4. Chronic systolic and diastolic CHF, class III 5. Anemia of chronic disease 6. Depression with anxiety 7. Chronic headaches 8. Periodontal disease s/p multiple extractions MEDICATIONS ON ADMISSION: Norvasc 10 mg daily, Coreg 25 mg BID, Metoprolol succinate 25 mg daily, Lasix 80 mg BID, Hydralazine 25 mg TID, Imdur 60 mg daily, Lisinopril 10 mg daily, ES Tylenol 1,000 mg q8h prn dialysis related or headache pains, Oxycodone IR 15 mg q4h prn breakthrough pain. ALLERGIES/SENSITIVITIES: NKDA CONSULTANTS: Nephrology (Jeff), Pulmonology/critical care (Arnaud) PROCEDURES/IMAGIN/22 (Yordan): Minimally invasive chordal sparing mitral valve replacement with a 25mm Prince Magna bovine pericardial bioprosthesis. Access via right anterolateral thoracotomy. Cardiopulmonary bypass via right femoral vessels. Hemodialysis while on pump. Primary repair of right common femoral artery and vein after decannulation. 08/05 (Jamin): Transthoracic echocardiogram ABBREVIATED HOSPITAL COURSE BY ACTIVE PROBLEM LIST: 1. Severe functional MR - Rapid physical recovery s/p MICS tissue MVR. Antithrombotic prophylaxis with Coumadin, target INR 2-3, duration x 3 months. 2. Acute on chronic anemia - Baseline HCT in low 20% range. Surgical losses repleted with 5U packed red blood cells. No evidence active bleeding. Weekly epogen resumed on dialysis. 3. Postoperative right pneumothorax - Small volume loss. Stable by serial imaging. Managed conservatively. Delayed tube removal after prolonged clamping trial. 4. Hypertensive dilated cardiomyopathy with normal systolic function - Hx poorly controlled HTN on combination therapy. Cards consulted for assistance with postop control. Home regimen alterations made with good effect. Further adjustments per close outpatient follow up. 5. ESRD - HD per nephrology. Improved tolerance postop. Clinical euvolemia achieved. DISCHARGE CLINICAL INFORMATION: Right thoracotomy and right groin incision CDI, sutured, +Dermabond. HR 90s-100s. BP 130s-150s/80s-90s. SpO2 94% RA. Wt 4.6 kg below admission at 72.5 kilos. WBC 5.7, HCT 19.1 pre transfusion 1u PRBC, Plt 177, Na 140, K 4.8, Cr 5.2 Coumadin flow sheet: Date INR mg 08/03 1.21 5 08/04 1.42 5 08/05 3.58 0 08/06 3.89 0 08/07 1.96 1 08/08 1.42 2.5 08/09 1.56 2.5 08/10 1.65 2.5 DISCHARGE MEDICATIONS: As on admission with the following adjustments: 1. Hold Imdur. 2. Hold metoprolol succinate. 3. Hold hydralazine. 4. Hold lisinopril. 5. Decrease oxycodone to 5-10 mg q 6-8 hr prn pain. NEW prescriptions: 1. Minoxidil 5 mg BID. 2. Coumadin 2.5 mg daily or as directed by INR/anticoagulation clinic. 3. ASA 81 mg daily until INR stable in therapeutic range. Hold for INR > 3. 4. Xanax 0.5 mg TID prn anxiety. FOLLOW UP APPOINTMENTS: 1. CV surgery: with Dr Farr at [facility] on 08/14/17 at 10:15 am. 2. Cardiology: with Dr Low at [facility] within 1 week. Office to call with appointment time. 3. [facility] dialysis center in [place] as directed. 4. [facility] anticoagulation clinic: at [facility] on 08/14 at 9:30 am. FOLLOW UP TESTING: PT/INR on 08/14. CXR prior to surgical appointment.
== END 2017-08-10 15:12 | disposition home or self-care (01) | DRG 219 ==
LOC: F2N 05:44 → F2W 08-03 12:13
PROVIDERS: ADMIT Thoracic Surgery (Cardiothoracic Vascular Surgery); ATTEND Thoracic Surgery (Cardiothoracic Vascular Surgery)
DX: I34.0 Nonrheumatic mitral (valve) insufficiency (principal); I13.2 Hypertensive heart and chronic kidney disease with heart failure and with stage 5 chronic kidney disease, or end stage renal disease; N18.6 End stage renal disease; I50.42 Chronic combined systolic (congestive) and diastolic (congestive) heart failure; J93.9 Pneumothorax, unspecified; D69.6 Thrombocytopenia, unspecified; Q60.0 Renal agenesis, unilateral; E87.5 Hyperkalemia; D62 Acute posthemorrhagic anemia; D63.1 Anemia in chronic kidney disease; Z99.2 Dependence on renal dialysis
CPT/HCPCS: 82947-QW; 83010-90; 97116-GP; 97161-GP; 97165-GO; G8978-GP-CI; G8979-GP-CI; G8980-GP-CI; G8987-GO-CI; G8987-GO-CK; G8988-GO-CH; G8989-GO-CH; J0153; J0171; J0282; J0360; J0610; J0690; J0885; J1200; J1250; J1265; J1644; J1815; J1885; J2001; J2150; J2250; J2260; J2370; J2405; J2704; J2720; J2765; J2930; J3010; J7060; P9016; P9041

== ENCOUNTER → 2017-08-14 | Outpatient (CLI) | payer OTHER, MEDICAID | LOC: FIMAGING 08:37 | PROVIDERS: ATTEND Thoracic Surgery (Cardiothoracic Vascular Surgery) | DX: Z09 Encounter for follow-up examination after completed treatment for conditions other than malignant neoplasm (principal); J90 Pleural effusion, not elsewhere classified; Z95.2 Presence of prosthetic heart valve ==

== ENCOUNTER 2017-09-09 16:15 | Inpatient (IN) | payer OTHER, MEDICAID ==
--- NOTE | 2017-09-09 16:34 | EDPHY ---
H & P Stated Complaint: Flu-like sxs;sent from dialysis for eval;mitral valve replacement 07/2017 Source: Patient, Old records Exam Limitations: No limitations - Personal History Current Tetanus Diphtheria and Acellular Pertussis (TDAP): Yes - Medical/Surgical History Hx Asthma: No Hx Chronic Respiratory Disease: No Hx Diabetes: No Hx Cardiac Disease: Yes Hx Renal Disease: Yes Hx Cirrhosis: No Hx Alcoholism: No Hx HIV/AIDS: No Hx Splenectomy or Spleen Trauma: No Other PMH: PMHx: dialysis, HTN, dental caries, chf, mitral valve prolapse w/ replacement 07/2017. PSHx: chani - Social History Smoking Status: Former smoker Time Seen by Provider: 09/09/17 16:24 HPI/ROS: HPI: This is a 26-year-old male who presents with Chief Complaint: Flu-like sxs;sent from dialysis for eval;mitral valve replacement 07/2017 Location: Chest Quality: Dyspnea Duration: Since Saturday afternoon Signs and Symptoms: + shortness of breath at rest,+ shortness of breath on exertion, + nonproductive cough, no chest pain, no palpitations, no lower extremity edema, no wheezing, no orthopnea, no paroxysmal nocturnal dyspnea, no fever, no injury/trauma, no hemoptysis Timing: Sudden, waxes and wane Severity: Moderate Context: History of end-stage renal disease secondary to solitary kidney and uncontrolled hypertension, status post mitral valve replacement in July 2017 , receives hemodialysis Saturday and Saturday. Attended hemodialysis Saturday for the entire 4 hr, but then upon arriving home he felt fatigue, chills , cough, shortness of breath. Was at dialysis today for 3 hr, he started to experience increased shortness of breath, heart rate 100-110s and O2 sats per patient were 84-96% on room air. Reports he received influenza vaccine this year. Former smoker. Patient is a concerned that it may be related to his mitral valve. Patient feels like his heart is racing. Modifying Factors: See above Comment: ROS: see HPI Constitutional: No fever, + chills, no weight loss Eyes: No blurred vision Respiratory: + shortness of breath, + cough Cardiovascular: No chest pain, no palpitations, no lower extremity edema Gastrointestinal: No nausea, no vomiting, no diarrhea Genitourinary: No dysuria Extremities: No myalgias Neurologic: No weakness, no numbness Skin: No rashes Hematologic: No bruising, no bleeding MEDICAL/SURGICAL/SOCIAL HISTORY: PMHx: dialysis, HTN, dental caries, chf, mitral valve prolapse w/replacement 2016 PSHx: chani Social history: Disabled. CONSTITUTIONAL: Chronically ill-appearing adult white male, shivering, awake and alert, no obvious distress HEENT: Atraumatic and normocephalic, PERRL, EOMI. Tympanic membranes clear. Oropharynx clear, no exudate and moist pink mucosa. Airway patent. No lymphadenopathy. No meningismus. Cardiovascular: Normal S1/S2, tachycardia, regular rhythm, without murmur rub or gallop. PULMONARY/CHEST: Symmetrical and nontender. Clear to auscultation bilaterally. Good air movement. No accessory muscle usage. ABDOMEN: Soft, nondistended, nontender, no rebound, no guarding, no peritoneal signs, no masses or organomegaly. No CVAT. EXTREMITIES: 2/2 pulses, strength 5/5, left arm AV fistula noted. no deformities, no clubbing, no cyanosis or edema. No calf tenderness. NEUROLOGICAL: no focal neuro deficits. GCS 15. SKIN: Warm and dry, no erythema. no rash. Good capillary refill. (Mariam Allen) Constitutional: Initial Vital Signs Temperature (C) 37.5 C 09/09/17 16:17 Heart Rate 124 H 09/09/17 16:17 Respiratory Rate 20 09/09/17 16:17 Blood Pressure 169/103 H 09/09/17 16:17 O2 Sat (%) 92 09/09/17 16:17 O2 Delivery Mode Room Air O2 (L/minute) 3 Allergies/Adverse Reactions: No Known Allergies Allergy (Verified 09/09/17 16:17) Home Medications: Medication Instructions Recorded Furosemide [Lasix 80 MG (*)] 80 mg PO BID 06/21/17 Carvedilol [Coreg (*)] 25 mg PO BIDMEAL #60 tab 06/30/17 amLODIPine BESYLATE [Norvasc 10 mg 10 mg PO DAILY #30 tab 06/30/17 (*)] Acetaminophen [Tylenol ES 500 mg 1,000 mg PO Q8 #0 tab 08/10/17 (*)] Aspirin [Aspirin 81mg (*)] 81 mg PO DAILY tab.chew 08/10/17 Minoxidil [Minoxidil 2.5 mg (*)] 5 mg PO BID #120 tab 08/10/17 Warfarin Sodium [Coumadin 2.5MG 2.5 mg PO DAILY AT 4PM #90 tab 08/10/17 (*)] Epoetin Kirit [Procrit 77053 10,000 unit SC MOWEFR PRN 09/09/17 UNIT/ML (*)] FLUoxetine HCL [Fluoxetine HCl] 40 mg PO DAILY 09/09/17 Sevelamer Carbonate [Renvela] 2,400 mg PO TIDMEAL 09/09/17 Medical Decision Making - Diagnostics EKG Interpretation: 12 lead EKG: Indication: Dyspnea Rhythm: Sinus tachycardia, rate 119 beats per minute [place]: Normal Intervals: Normal QRS: Normal ST segments: Nonspecific changes T segments: Nonspecific changes INTERPRETATION: No acute ischemic changes/arrhythmia The 12 lead EKG was interpreted by myself and with attending. (Mariam Allen) Imaging Results: Imaging Impressions Chest X-Ray 09/09/17 16:31 Impression: Congestive heart failure. ED Course/Re-evaluation: EKG, chest x-ray, labs, influenza test ordered Vital signs reviewed upon arrival; pulse 120; O2 sats 92-94% on room air. EKG shows sinus tachycardia with no acute ischemic changes 1654: Notified by nursing that patient complaining of a generalized headache; no neck stiffness; took Tylenol several times today without relief. IV morphine 2 mg given 1700: End of shift. Signed out to Dr. Mike. Discussed case, laboratory studies pending, differentials. (Mariam Allen) The patient was evaluated and managed by the physician's assistant store leader. My cosignature indicates that I reviewed the chart and I agree with the findings and plan of care as documented. I am the secondary supervising physician. EKG: Sinus tachycardia 119. Normal axis. Normal interval. No ST or T-wave abnormalities. I personally went evaluated the patient. The patient describes chest pressure since Saturday. This is been intermittent. He was at dialysis today noted to be tachycardic. The patient states he has is normal weight pre dialysis. I reviewed the patient's laboratory studies. Of note he was leukopenic. This is consistent with his old value. He is also anemic. This was consistent with a previous value. His creatinine was 5.8. His troponin was mildly elevated at 0.039. Chest x-ray showed CHF. I ordered a cardiac echo to further evaluate the patient's tachycardia and pressure. I discussed the case with Dr. Pina from the hospitalist service. She will admit. I discussed the case with Dr. Hooper from cardiothoracic surgery. On recheck the patient developed temperature to 39. Patient was still mildly tachycardic. Based on this finding a repeat lactic acid was ordered. UA, urine angelica, and blood cultures were ordered. The patient was given normal saline 250 mL IV. I contacted Dr. Pina to inform her of the change. (Cathy Mike) Differential Diagnosis: Shortness of breath including but not limited to pulmonary infectious process, COPD, asthma, pulmonary embolus, valve disorder, sepsis and congestive heart failure. (Mariam Allen) - Data Points Laboratory Results: Laboratory Results 09/09/17 16:45 09/09/17 16:45 09/09/17 09/09/17 09/09/17 17:10 16:45 16:45 WBC RBC Hgb Hct MCV MCH MCHC RDW Plt Count MPV Neut % (Auto) Lymph % (Auto) Store[place] % (Auto) Eos % (Auto) Baso % (Auto) Nucleat RBC Rel Count Absolute Neuts (auto) Absolute Lymphs (auto) Absolute Monos (auto) Absolute Eos (auto) Absolute Basos (auto) Absolute Nucleated RBC Immature Gran % Immature Gran # PT INR D-Dimer VBG Lactic Acid 1.0 mmol/L mmol/L (0.7-2.1) Sodium Potassium Chloride Carbon Dioxide Anion Gap BUN Creatinine Estimated GFR Glucose Calcium Total Bilirubin Conjugated Bilirubin Unconjugated Bilirubin AST ALT Alkaline Phosphatase Troponin I NT-Pro-B Natriuret Pep Total Protein Albumin TSH Pending Nasal Influenza A PCR NEGATIVE FOR FLU A (NEGATIVE) Nasal Influenza B PCR NEGATIVE FOR FLU B (NEGATIVE) 09/09/17 09/09/17 09/09/17 16:45 16:45 16:45 WBC 6.03 10^3/uL 10^3/uL (3.80-9.50) RBC 2.49 10^6/uL L 10^6/uL (4.40-6.38) Hgb 7.1 g/dL L g/dL (13.7-17.5) Hct 21.2 % L % (40.0-51.0) MCV 85.1 fL fL (81.5-99.8) MCH 28.5 pg pg (27.9-34.1) MCHC 33.5 g/dL g/dL (32.4-36.7) RDW 13.2 % % (11.5-15.2) Plt Count 188 10^3/uL 10^3/uL (150-400) MPV 9.3 fL fL (8.7-11.7) Neut % (Auto) 83.6 % H % (39.3-74.2) Lymph % (Auto) 8.6 % L % (15.0-45.0) Storey % (Auto) 6.3 % % (4.5-13.0) Eos % (Auto) 0.5 % L % (0.6-7.6) Baso % (Auto) 0.3 % % (0.3-1.7) Nucleat RBC Rel Count 0.0 % % (0.0-0.2) Absolute Neuts (auto) 5.04 10^3/uL 10^3/uL (1.70-6.50) Absolute Lymphs (auto) 0.52 10^3/uL L 10^3/uL (1.00-3.00) Absolute Monos (auto) 0.38 10^3/uL 10^3/uL (0.30-0.80) Absolute Eos (auto) 0.03 10^3/uL 10^3/uL (0.03-0.40) Absolute Basos (auto) 0.02 10^3/uL 10^3/uL (0.02-0.10) Absolute Nucleated RBC 0.00 10^3/uL 10^3/uL (0-0.01) Immature Gran % 0.7 % % (0.0-1.1) Immature Gran # 0.04 10^3/uL 10^3/uL (0.00-0.10) PT Pending INR Pending D-Dimer Cancelled VBG Lactic Acid Sodium 142 mEq/L mEq/L (135-145) Potassium 3.9 mEq/L mEq/L (3.5-5.2) Chloride 92 mEq/L L mEq/L (97-110) Carbon Dioxide 32 mEq/l H mEq/l (22-31) Anion Gap 18 mEq/L H mEq/L (8-16) BUN 26 mg/dL H mg/dL (7-23) Creatinine 5.8 mg/dL H mg/dL (0.7-1.3) Estimated GFR 12 Glucose 94 mg/dL mg/dL (70-100) Calcium 9.5 mg/dL mg/dL (8.5-10.4) Total Bilirubin 0.4 mg/dL mg/dL (0.1-1.4) Conjugated Bilirubin 0.4 mg/dL mg/dL (0.0-0.5) Unconjugated Bilirubin 0.0 mg/dL mg/dL (0.0-1.1) AST 12 IU/L L IU/L (17-59) ALT 27 IU/L IU/L (21-72) Alkaline Phosphatase 70 IU/L IU/L (38-126) Troponin I 0.039 ng/mL H ng/mL (0.000-0.034) NT-Pro-B Natriuret Pep > 39828 pg/mL H pg/mL (0-125) Total Protein 6.3 g/dL g/dL (6.3-8.2) Albumin 3.6 g/dL g/dL (3.5-5.0) TSH Nasal Influenza A PCR Nasal Influenza B PCR Medications Given: Discontinued Medications Morphine Sulfate (Morphine) 2 mg IVP EDNOW ONE Stop: 09/09/17 16:53 Last Admin: 09/09/17 16:59 Dose: 2 mg Morphine Sulfate (Morphine) 2 mg IVP EDNOW ONE Stop: 09/09/17 18:08 Last Admin: 09/09/17 18:27 Dose: 2 mg Departure - Departure Disposition: [facility] Inpatient Acute Clinical Impression: ESRD on hemodialysis, Elevated troponin Dyspnea Qualifiers: Dyspnea type: shortness of breath Qualified Code(s): R06.02 - Shortness of breath CHF (congestive heart failure) Qualifiers: Congestive heart failure type: unspecified Congestive heart failure chronicity : chronic Qualified Code(s): I50.9 - Heart failure, unspecified Condition: Good
--- NOTE | 2017-09-09 16:36 | CPEKG ---
Heart Rate: 119 RR Interval: 504 P-R Interval: 132 QRSD Interval: 80 QT Interval: 316 QTC Interval: 445 P Lynn: 0 QRS Lynn: -2 T Wave Lynn: 118 EKG Severity - OTHERWISE NORMAL ECG - EKG Impression: SINUS TACHYCARDIA Electronically Signed By: Cathy Mike 09-Sep-2017 23:03:17
[2017-09-09 17:20] LABS: PLATELET COUNT 188 10^3/uL (150-400)
[2017-09-09] MEDS ORDERED: ONDANSETRON DISINTEGRATING 4 MG TAB PO PRN (18:21)
[2017-09-09] MEDS ORDERED: ONDANSETRON 4 MG/2 ML VIAL IVP PRN (18:21)
[2017-09-09] MEDS ORDERED: KETOROLAC 30 MG/1 ML SDV IVP ONE (19:02)
[2017-09-09] MEDS ORDERED: NS 250 ML IV ONE (19:04)
[2017-09-09 20:34] LABS: INR 1.52 (0.83-1.16)
[2017-09-09] MEDS: oxyCODONE IR 5 MG TAB PO PRN (21:00)
[2017-09-09] MEDS ORDERED: FUROSEMIDE 80 MG TAB PO SCH (21:00)
[2017-09-09] MEDS ORDERED: CEFEPIME HCL 1 GM in STERILE WATER INJ 11.3 ML IV ONE (21:00)
[2017-09-09] MEDS ORDERED: VANCOMYCIN 750 MG in D5W 150 ML IV ONE (21:00)
--- NOTE | 2017-09-09 21:05 | GHP ---
[f rep st] HISTORY AND PHYSICAL DATE OF ADMISSION: 09/09/2017 CHIEF COMPLAINT: Shortness of breath and chest pressure. HISTORY OF PRESENT ILLNESS: A 26-year-old male with a history of unilateral kidney with end-stage re nal disease, dialysis dependent, who underwent recent mitral valve replacement 07/2017. The patient reports doing well postoperatively, then developing over the course of the last week symptoms of heav iness across his chest with associated shortness of breath, dizziness with exertion, and headache. T he patient denies subjective fevers or chills, just feels not well. The patient denies any nausea or vomiting. Denies changes in his bowel habits. The patient still urinates 5-6 times a day. Denies any dysuria or hematuria. Denies any rashes or known sick contacts. PAST MEDICAL HISTORY: 1. End-stage renal disease, hemodialysis dependent. 2. Hypertensive dilated cardiomyopathy. 3. Severe mitral regurgitation, status post mitral valve replacement July 2017. 4. Hypertension. 5. Anemia of chronic disease. 6. Depression with anxiety. 7. Chronic headaches. SOCIAL HISTORY: The patient denies alcohol, drugs, or tobacco. FAMILY HISTORY: Negative for kidney dysfunction. REVIEW OF SYSTEMS: A 10-point review of systems is negative with the exception of that reported in t he HPI. PHYSICAL EXAMINATION: VITAL SIGNS: Blood pressure is 156/89, pulse is 129, respiratory rate 16, sat urating 88% on room air, febrile to 39.5. GENERAL: This is a disheveled appearing young male in no acute distress. HEENT: Dry mucous membranes. Eye exam is negative for any icterus. CARDIAC: The patient is tachycardic. PULMONARY: Diminished breath sounds bilateral bases. No rales, rhonchi, or wheezing are appreciated. GASTROINTESTINAL: Positive bowel sounds. ABDOMEN: Thin and nontender. MUSCULOSKELETAL: Negative for any lower extremity edema. SKIN: Negative for any rashes. NEUROLOG IC: The patient is alert and oriented x3. PSYCHIATRIC: Seems depressed on my examination. DATA: White count is 6.03, hematocrit 21.2, platelet count of 188, creatinine is 5.8, troponin 0.039 . Chest x-ray, which I personally reviewed and interpreted, shows bilateral interstitial markings th at look consistent with vascular redistribution. ASSESSMENT AND PLAN: This is a 26-year-old male presenting with shortness of breath. 1. Sepsis. The patient is presenting with tachycardia, fever. Possible source of infection for tara s patient could either be pulmonary or intravascular. The patient has respiratory symptoms. We will send a respiratory panel PCR, blood cultures. We will empirically treat for healthcare associated p neumonia until more data is available with vancomycin and cefepime. 2. Acute hypoxic respiratory failure. The patient has a markedly elevated BMP, and chest x-ray look s most consistent with pulmonary edema. However, the patient has not missed dialysis, and was at his reported dry weight today at the completion of his 3 hour spin. I have discussed the case with Dr. Malloy, who is comfortable with him receiving IV Lasix. I will hold for now, as his hypoxia is no t severe, and it is unclear to me if the patient is developing worsening sepsis physiology or not. Kaylene miller received 500 cc normal saline bolus in the emergency department with his first fever. We will cont inue to monitor him on telemetry overnight. 3. Sinus tachycardia. The differential for this could include sepsis alone with fever. Certainly c ould be cardiac in origin, if in fact he has volume overload. Could additionally be withdrawal or an acute substance intoxication. We will send a drug screen. As above, I am holding on aggressive diu resis currently until his clinical course is more clear to me in the setting of acute high fever. 4. End-stage renal disease, hemodialysis dependent. I did discuss the case with Dr. Malloy. He will see the patient in the morning. We will continue the majority of his chronic medications, holdi ng 2 of the antihypertensives until we are clear again about what his blood pressures will do. 5. Mitral valve replacement. The patient is on Coumadin anticoagulation. We will send an INR and c ontinue. May need bridging if not therapeutic. 6. Prophylaxis. The patient is on Coumadin outpatient. Check an INR. 7. Diet renal. DISPOSITION: I expect greater than 2 midnights, as the patient is presenting with vital signs consis tent with sepsis and hypoxia, worrisome for volume overload. Will require close monitoring and more diagnostics to better understand this patient's acute presentation. I discussed the case with Dr. Gvain bennett. He will consult tomorrow for Nephrology. /[id number]/MODL
[2017-09-09] MEDS ORDERED: ZOLPIDEM TARTRATE 5 MG TAB PO ONE (21:17)
[2017-09-09] MEDS ORDERED: WARFARIN SODIUM 5 MG TAB PO ONE (21:18)
[2017-09-09] MEDS: HEPARIN 5,000 UNIT/0.5 ML SYR SC SCH (23:02)
[2017-09-10 04:22] LABS: PLATELET COUNT 165 10^3/uL (150-400)
[2017-09-10 04:42] LABS: INR 1.58 (0.83-1.16)
[2017-09-10] MEDS: HEPARIN 5,000 UNIT/0.5 ML SYR SC SCH ×3 (06:09→20:41)
[2017-09-10] MEDS: oxyCODONE IR 5 MG TAB PO PRN ×3 (08:03→20:39)
[2017-09-10] MEDS: SEVELAMER HCL 800 MG TAB PO SCH ×3 (08:05→17:42)
[2017-09-10] MEDS: FLUoxetine 20 MG CAP PO SCH (08:06)
[2017-09-10] MEDS: ASPIRIN 81 MG CHEWABLE TAB PO SCH (08:06)
[2017-09-10] MEDS: CARVEDILOL 25 MG TAB PO SCH ×2 (08:06→17:33)
[2017-09-10] MEDS: FUROSEMIDE 80 MG TAB PO SCH ×2 (08:07→14:55)
[2017-09-10] MEDS ORDERED: EPOETIN ALFA 10,000 UNIT/ML VIAL SC SCH (10:15)
[2017-09-10] MEDS ORDERED: ACETAMINOPHEN 325 MG TAB PO ONE (10:15)
--- NOTE | 2017-09-10 10:38 | PDMN ---
Medical Necessity Medical necessity: Pt meets IP criteria per MD; est los >2 mn for eval/tx of sepsis, acute hypoxic respiratory failure, worrisome for volume overload; admit for further workup/monitoring, Nephrology consult & IV abx; hx recent MVR on AC , end stage renal disease/hemodialysis dependent, hypertensive dilated cardiomyopathy; per H&P & order 09/09/17
--- NOTE | 2017-09-10 10:42 | GCON ---
[f rep st] CONSULTATION NEPHROLOGY CONSULTATION DATE OF CONSULTATION: 09/10/2017 REASON FOR CONSULTATION: Nausea, vomiting, fevers, end-stage renal disease. HISTORY OF PRESENT ILLNESS: The patient is a pleasant 26-year-old male with a past medical history s ignificant for end-stage renal disease, severe hypertension, and recent valve replacement, who now pr esents with fevers. History is obtained from the patient, who is a good historian. The patient dialyzes at the [facility] under the care of Dr. Clark Rawls on a ay Saturday schedule. In the past, the patient did have multiple admissions relating to unde r dialysis, fluid overload, and severe hypertension. More recently, the patient has been quite compl iant with his regimen. He now presents with a much improved volume status and blood pressure. The christine tuttle did recently undergo a mitral valve replacement, and is now on anticoagulation. The patient was in his baseline state of health when, yesterday on dialysis, he began developing naus ea and vomiting 3 hours into his treatment. His treatment was discontinued and he was sent to the em ergency room. Upon admission, he began developing fevers and rigors. He now has grown blood culture s positive for gram-positive cocci in chains. He is being covered with vancomycin. As of this morni ng, he is now afebrile and looks quite good. Notable features leading to his presentation is a chest x-ray that has the appearance of congestive heart failure, as well as profound anemia. I do not hav e recent CBC results from the dialysis unit. An echocardiogram was performed and is pending. The caitlyn munroe does have a history of significant periodontal disease. He had multiple extractions prior to m itral valve replacement. He states he has 2 teeth that he does have concerns about with which he has had some discomfort. As relating to the above issues, we are asked by the hospital service to chip t the patient's renal diagnosis and management. PAST MEDICAL HISTORY: 1. End-stage renal disease. 2. Hypertensive cardiomyopathy. 3. Past history of recreational drug use. 4. Intradialytic headaches. 5. Anemia. 6. Status post mitral valve replacement on chronic anticoagulation. 7. Anxiety and depression. SURGICAL HISTORY: 1. Fistula placement. 2. Mitral valve replacement in 2017. HOME MEDICATIONS: Fluoxetine 40 mg daily, Renvela 2400 mg p.o. three times daily, carvedilol 25 mg p .o. twice daily, aspirin 81 mg daily, Tylenol p.r.n., Procrit on dialysis, Lasix 80 mg twice daily, m inoxidil 5 mg twice daily, amlodipine 10 mg daily, Warfarin 2.5 mg daily. FAMILY HISTORY: Noncontributory. SOCIAL HISTORY: The patient does have children living in another state. He is here living with his mother. He is not working. He has stopped smoking. He is not drinking alcohol. REVIEW OF SYSTEMS: The patient was having fevers and rigors. He presently is not having these. He denies current headache. He does frequently have headaches, however. He denies visual disturbances. He does not have rhinitis or sore throat. He does have a chronic cough. He denies chest pain or p alpitations. He denies abdominal pain, constipation, diarrhea. He only makes a small amount of urin e but he has had some dysuria. He denies lower extremity edema. He denies skin rashes or skin lesio ns. He does not have a history of diabetes or thyroid disease. He does note having some potential t oothaches. PHYSICAL EXAM: GENERAL: At the time of exam, the patient is appropriate, alert. VITAL SIGNS: Temp erature 37.4, pulse 105, blood pressure 151/97. EYES: Sclerae are clear. Oropharynx clear. NECK: No lymphadenopathy or thyromegaly. LUNGS: Clear to auscultation bilaterally. CARDIOVASCULAR: Tac hycardic without gallops or rubs. ABDOMEN: Nontender. No organomegaly. /RECTAL: Deferred. EXT REMITIES: No lower extremity edema. The patient's fistula site in his left forearm looks good. INT EGUMENT: Generally clear. NEURO: No focal findings. LABORATORY STUDIES: Urinalysis notable for 2+ protein and 2+ glucose. Sodium 142, potassium 5, bica rb 35, creatinine 7.2, calcium 8.4. White count 7.6, hematocrit 19.1, platelet count 165. IMPRESSION AND PLAN: 1. End-stage renal disease. The patient dialyzes on a Saturday, Saturday, Saturday schedule. He does have evidence of some congestive heart failure, has been having a cough. We will dialyze again today . 2. Anemia. The patient is profoundly anemic. His hemoglobin has decreased. We will start Erythrop oietin. At this time I believe a blood transfusion is appropriate. 3. Bacteremia. The patient is on vancomycin. Repeat cultures to be obtained. Cardiac echo is pend ing. Potential sources include intravascular, there are concerns about potential seeding of the hear t valve. Additionally, the patient could have a cutaneous or dental source. These will be evaluated . Thank for allowing us to participate in this pleasant gentleman's care. We will continue following oma de leon with you. /[id number]/MODL
--- NOTE | 2017-09-10 12:48 | GCON ---
[f rep st] CONSULTATION DATE OF CONSULTATION: 09/10/2017 REFERRING PHYSICIAN: Mk Agee MD REASON FOR CONSULTATION: Bacteremia with possible prosthetic valve endocarditis. CHIEF COMPLAINT: Fevers. HISTORY PRESENT ILLNESS: This is a 26-year-old male with a past medical history significant for end-stage renal disease on dialysis for the past 4 years via a fistula in his left forearm, mitral valve replacement in July 2017. He states that he was doing well up until about a week ago when he started to feel more fatigued. He states about 5 days ago he started to have fevers with chills and palpitations, and then when he was at dialysis yesterday, his heart rate was elevated, and thus they transferred him here for further evaluation. In the ER, he was noted to have a fever of 39.5. He was tachycardic with a pulse rate of 124, and he had an elevated blood pressure of 159/103. Blood cultures x2 sets were drawn and both sets are growing gram- positive cocci in chains, which are preliminarily identified as a Streptococcus , which is not group A, group B or pneumococcus. He had influenza studies done and a respiratory viral panel done which were negative. Chest x-ray done which showed congestive heart failure. He was placed on cefepime and vancomycin. Infectious Disease is now consulted for further evaluation and opinion. REVIEW OF SYSTEMS: GENERAL: Fevers and shaking chills. HEAD: He does have a headache which appears to be bitemporal. It is improved with Tylenol. EYES: No change in vision. ENT: No sore throat, difficulty swallowing, ear pain or ear drainage. He does complain of 2 teeth that have some carious changes to them but does not complain of overt pain. CARDIOVASCULAR: As above. RESPIRATORY: He denies any shortness of breath, cough, or sputum production, although he was a little bit more short of breath yesterday. He is feeling better today. ABDOMEN: No nausea, vomiting, abdominal pain, or diarrhea. : He does make a little bit of urine every day, and recently he has had some burning with urination at the end of it. He has not noticed any blood. MUSCULOSKELETAL: Denies any joint pains or muscle aches. BACK: No back pain over the spine. No flank pain. SKIN: Denies any rashes or open wounds. Rest of 10-point review of systems is essentially negative. PAST MEDICAL HISTORY: Significant for: 1. End-stage renal disease on dialysis for the past 4 years. He states he has had a fistula on the distal part of his left forearm. This is his one and only fistula since that time. 2. Hypertension. 3. Severe mitral regurgitation, status post mitral valve replacement July 2017. 4. Hypertensive dilated cardiomyopathy. 5. Anemia of chronic disease. 6. Depression. 7. Anxiety. 8. Chronic headaches. PAST SURGICAL HISTORY: Significant for mitral valve replacement July 2017, left forearm fistula placed 4 years ago, cholecystectomy, and 12 teeth removed prior to his valve replacement surgery last year. ALLERGIES: No known drug allergies. SOCIAL HISTORY: He denies alcohol. He quit smoking last year. Does not drink alcohol. No illicit drug usage. He occasionally smokes marijuana. He lives with his parents. He is from his . He has 3 small children, ages 3, 4, and 5, for which he gets to see them over the summertime. His parents have a couple dogs which are healthy. He has not left [place] recently. FAMILY HISTORY: Significant for hypertension. MEDICATIONS: As per MAR. PHYSICAL EXAMINATION: VITAL SIGNS: Temperature current 37.4, pulse is 105, blood pressure 151/97, respiratory rate is 18, saturation 94% on O2 via nasal count 2 L. GENERAL: Patient is resting in be, no acute respiratory distress. Awake, alert, oriented x3. HEENT: Head is normocephalic, atraumatic. Eyes without conjunctival injection. No petechiae noted. Oropharynx is clear. There is no posterior erythema or thrush. He has 2 teeth with carious-like changes in the left upper area, nontender to palpation. He did bite his cheek on the right lower side. CARDIOVASCULAR: S1, S2. Regular rhythm. He is tachycardic. He has a systolic murmur best appreciated in the right upper sternal border. RESPIRATORY: Mild coarse breath sounds bilaterally. No jerardo rhonchi noted. ABDOMEN: Positive bowel sounds in all quadrants. Soft, nontender, nondistended. No obvious organomegaly appreciated. EXTREMITIES: No lower extremity edema. He has a fistula in the distal left forearm, with no erythema overlying it and nontender. MUSCULOSKELETAL: No joint effusions or pain on palpation of the joints. SKIN: He has a right lateral chest incision site from his cardiac surgery. The incision site is well healed. There is no erythema. There is no drainage. It is tender to palpate, but there is no evidence of induration or thickening of the skin. LABORATORY DATA: White blood cell count is 7.6, hemoglobin 6.0, platelets are 165, neutrophil count is 82%. INR 1.5. Venous lactic acid 0.5. Chemistries: Sodium 140, potassium 5.0, chloride is 95, bicarb 35. BUN is 38, creatinine is 7.2. LFTs done yesterday are within the normal range. Troponin 0.039. BNP greater than 35,000. TSH 3.9. Urinalysis: 2+ protein, negative nitrites, negative leuk esterases. No urine WBCs noted. Negative for flu A and B PCR. Drug screen is negative except for a positive marijuana screen. Blood cultures , both sets are growing out a gram-positive cocci in chains, preliminarily identified as streptococcus non-group A, non-group B, and not pneumococcus. All 4 bottles are positive. Respiratory viral panel is negative. Chest x-ray with congestive heart failure-like changes; images reviewed by me. Echocardiogram done and is pending. ASSESSMENT: 1. Streptococcus bacteremia with possible prosthetic valve endocarditis. 2. Carious teeth. 3. End-stage renal disease on dialysis via a fistula. PLAN: At this point in time, blood cultures are positive for Streptococcus. That could likely be Streptococcus viridans or Strep bovis-type of species. Final ID is pending. Will change cefepime to ceftriaxone 2 g once a day. Will discontinue vancomycin. Await echocardiogram to assess the depth of this infectious process. Further recommendations will be based on results that are pending. Will repeat blood cultures in the a.m. to follow course of therapy. Plan of care was discussed with the patient. Care was coordinated with the nurse and care was also coordinated with the hospitalist team. I thank you very much for allowing this opportunity to care for your patient in consultation. /[id number]/MODL MTDD
--- NOTE | 2017-09-10 13:52 | ECHO ---
[email or web address] [address] [address] Main: [phone] Fax: Transthoracic Echocardiogram Name: CONRADO ESPINOSA MR#: [id number] Study Date: 09/10/2017 Study Time: 09:00 AM Date of : 1990 Age: 26 year(s) Height: 175.3 cm (69 in.) Weight: 74.84 kg (165 lb.) BSA: 1.9 m2 Gender: Male Examination: Echo Indication: CHF/Dyspnea/ESRD/MVR #25 Magna bioprothesis Image Quality: Contrast: Requested by: Cathy Mike BP: 151 mmHg/97 mmHg Heart Rate: Rhythm: Indication: CHF/Dyspnea/ESRD/MVR #25 Magna bioprothesis Procedure Staff Certified Medical Biller: Sarah Gutierrez DORI Reading Physician: Jordan Sanderson Requesting Provider: Conclusions: Mild to moderate LVH. Normal global systolic LV function. EF is 63 %. LV septal dyskinesis/septal bounce consistent with prior open heart surgery.. There is no mitral valve regurgitation. A bioprothetic mitral valve is in place. Prosthetic mitral valve mean gradient is 17mmHG. Stich or chordae noted on the LV side of the MV prosthesis. (seen on Aug 05, 2017 echo as well)(. Moderate tricuspid regurgitation is present. The pulmonary artery pressure is moderately increased. RSVP is 55mG.. Recommend SANJAY Measurements: Chambers Valvular Assessment AV/MV Valvular Assessment TV/PV Normal Normal Normal Name Value Range Name Value Range Name Value Range Ao Tiffanie (MM): 2.8 cm (2.2 cm-3.7 AV meanP mmHg ( - ) TR Vmax: 3.55 mm/s ( - ) cm) MV meanP mmHg ( - ) TR PGmax: 50 mmHg ( - ) IVSd (2D): 1.1 cm (0.6 cm-1.1 MV PHT: 0.095 s ( - ) syst. PAP: 55 mmHg ( - ) cm) MVA (PHT): 2.3 s ( - ) LVDd (2D): 5.1 cm (4.2 cm-5.9 cm) LVDs (2D): 3.3 cm (2.1 cm-4 cm) LVPWd (2D): 1.4 cm (0.6 cm-1 cm) LVEF (MOD4): 63 % (>=55 %) Patient: CONRADO ESPINOSA Study Date: 09/10/2017 Page 1 of 2 09:00 AM Continued Measurements: Chambers Valvular Assessment AV/MV Valvular Assessment TV/PV Name Value Name Value Name Value LADs: 4.9 cm MV VTI: 64.90 cm CVP (est.): 5 mmHg LADs Lon.0 cm LA Area: 27.2 cm2 Findings: Left Ventricle: Normal size left ventricle. Mild to moderate LVH. Normal global systolic LV function. EF is 63 %. Unable to assess diastolic dysfunction. LV septal dyskinesis/septal bounce consistent with prior open heart surgery.. Right Ventricle: Normal size right ventricle. Left Atrium: The left atrium is severely dilated. Right Atrium: The right atrium is normal in size. Mitral Valve: There is no mitral valve regurgitation. A bioprothetic mitral valve is in place. Prosthetic mitral valve mean gradient is 17mmHG. Stich or chordae noted on the LV side of the MV prosthesis. (seen on Aug 05, 2017 echo as well)(. Aortic Valve: The aortic valve is normal in appearance and function. There is no aortic valve vegetation. Tricuspid Valve: The tricuspid valve is normal in appearance and function. Moderate tricuspid regurgitation is present. The pulmonary artery pressure is moderately increased. RSVP is 55mG.. Pulmonic Valve: The pulmonic valve is normal in appearance and function. Mild pulmonic valve regurgitation is noted. Aorta: The aorta is normal. Pericardium: Trivial anterior pericardial effusion. Left side pleural effusion. Exam Comments: Previous mean gradients across the MV prosthesis were 12mmHG on 08/05/17. . (No Signature Object) Patient: CONRADO ESPINOSA Study Date: 09/10/2017 Page 2 of 2 09:00 AM [id number]
[2017-09-10] MEDS: cefTRIAXone 2 GM in STERILE WATER INJ 20 ML IV SCH (14:55)
[2017-09-10] MEDS: ACETAMINOPHEN 325 MG TAB PO PRN ×2 (15:52→20:46)
[2017-09-10] MEDS: WARFARIN SODIUM 2.5 MG TAB PO SCH (15:53)
--- NOTE | 2017-09-10 15:53 | ASMTCMCOM ---
CM Note CM Note Notes: 09/10/2017 Case Management Note Reviewed pt case during rounds, discussed with RN. There are no immediate case management d/c needs identified d/t pt family support, age and previous connections to resources. Pt receives dialysis on Saturday, Saturday and Fridays. There are no PT or OT evals ordered at this time. Pt may possbily need IV antibiotics at d/c. Case Management d/c poc: anticipating independent Case Management to follow for possible d/c antibiotic needs. Date Signed: 09/10/2017 03:52 PM Electronically Signed By:Lindy Ibarra RN
[2017-09-10] MEDS ORDERED: NS 1,000 ML IV ONE (15:58)
--- NOTE | 2017-09-10 16:09 | GCON ---
[f rep st] CONSULTATION CARDIOLOGY CONSULTATION DATE OF CONSULTATION: 09/10/2017 REASON FOR CONSULTATION: New onset of strep bacteremia with gram-positive cocci in chains in 4/4 bottles in the setting of recent bioprosthetic mitral valve replacement with a 25 mm Magna Mitral Valve on August 02, 2017, HISTORY OF PRESENT ILLNESS: Patient is a pleasant 26-year-old gentleman with a known history of a dilated nonischemic cardiomyopathy with recent over the last 12-months, recurrent admissions for decompensated systolic and diastolic congestive heart failure coupled with severe progressive mitral regurgitation in hypertensive crises. He ultimately underwent mitral valve replacement surgery with a minimally invasive right lateral thoracotomy with a 25 mm Magna Bioprosthetic Mitral Valve. He tolerated the procedure well. He was in his usual state of health, which includes hemodialysis Saturday, Saturday and Saturday until approximately a week ago when he developed complaints of feeling fatigued and complaints of fevers and chills and palpitations. He was noted during dialysis yesterday to be febrile to 39.5, and was transported to [facility] for further evaluation. On upon his arrival, he was tachycardic at 124 beats per minute with a blood pressure of 159/103. Blood cultures x2 were drawn and both sets have grown gram-positive cocci in chains preliminarily identified as streptococcus. Of note, he does have a known history of poor dentition and did have 12-teeth pulled prior to his mitral valve replacement surgery. He denies any use of IV drugs or illicit drugs. He does not drink alcohol. He has given up smoking. He is working to remain healthy in anticipation of a possible renal transplant in the future. He denies complaints of chest pain, chest pressure, shortness of breath, dyspnea , PND, orthopnea, or lower extremity edema. The patient has been closely followed postoperatively by Dr. Farr. He has been compliant with dialysis. He has been compliant with regular office visits with his primary Oracle Architect, Dr. Shant Low. His blood pressures have been markedly improved and well controlled on his current medical therapy. He has been compliant with medications. Currently, at the time of my exam, he has just returned from dialysis. He does complain of a significant headache. This is common post dialysis for him. PAST MEDICAL HISTORY: 1. End-stage renal disease, on hemodialysis for the last 4-years. End-stage renal disease is most likely secondary to his history of poorly controlled hypertension. 2. History of nonischemic dilated cardiomyopathy. 3. History of severe mitral regurgitation status post bioprosthetic mitral valve replacement with 25 mm Magna Bioprosthetic Valve August 02, 2017. 4. Hypertension. 5. Anemia of chronic disease. 6. Depression. 7. Anxiety. PAST SURGICAL HISTORY: Includes left arm fistula, cholecystectomy, 12-teeth removed prior to mitral valve replacement surgery and mitral valve surgery as stated above. MEDICATIONS ON ADMISSION: 1. Coreg 25 mg p.o. b.i.d. 2. Lasix 80 mg b.i.d. 3. Minoxidil 5 mg p.o. b.i.d. 4. Norvasc 10 mg daily. 5. Fluoxetine 40 mg daily. 6. Aspirin 81 mg daily. 7. Renvela 2400 mg t.i.d. with meals. SOCIAL HISTORY: He lives with his parents. He is . He has 3-children who live with his ex-. He sees them typically in the summertime. He has given up smoking. He does not use illicit drugs. He does not drink alcohol. FAMILY HISTORY: Notable for history of hypertension. PHYSICAL EXAM: VITAL SIGNS: Blood pressure is currently 124/75, heart rate of 91, sinus rhythm, respiratory rate of 16, oxygen saturation 92% on 2 L nasal cannula. Temperature 37.3. GENERAL: He is awake, alert, oriented and appropriate. He is in mild distress secondary to headache post dialysis. NECK : There is no evidence of JVP or carotid bruits. LUNGS: Clear to auscultation bilaterally. CARDIAC: S1 and S2. Regular rate and rhythm. No murmurs, rubs, or gallops. ABDOMEN: Soft, nontender, nondistended. EXTREMITIES: There is no evidence of cyanosis clubbing or edema. DATA: White blood cell count 7.6, hemoglobin 6, hematocrit 19.1, platelets 165. Sodium 142, potassium 5, chloride 95, BUN 38, creatinine 7.2, calcium 8.4 , TSH 3.93. Full nasal swab negative for influenza A or B. Echocardiogram done earlier today shows no evidence of endocarditis on his mitral valve. Left ventricular function is normal. Mean bioprosthetic valve gradient of 17 mmHg. There was evidence of residual chordae from his mitral valve. This is also visible on previous echocardiogram from August 05, 2017. He has moderate tricuspid regurgitation with RV systolic pressure of 55 mmHg. IMPRESSION: 1. Strep bacteremia. 2. History of poor dentition with 12-teeth removed prior to surgery. Concern for possible etiology of bacteremia from his remaining teeth. 3. No evidence of endocarditis on his transthoracic echocardiogram. 4. Would recommend transesophageal echocardiogram for further evaluation of the mitral valve. 5. Recommend he continue his current outpatient antihypertensive medications. 6. Will continue to follow along with his care. 30 Min spent coordinating care /[id number]/MODL RENATE
[2017-09-10] MEDS ORDERED: KETOROLAC 15 MG/1 ML SDV IVP ONE (17:26)
--- NOTE | 2017-09-10 17:43 | HOSPPROG ---
Hospitalist Progress Note Assessment/Plan: DIAGNOSES: -acute febrile illness with bacteremia 4/4 blood culture bottles with strep, not group a -high suspicion for acute bacterial endocarditis of his prosthetic mitral valve (bioprosthesis and parentheses) -at this time no evidence of any embolic phenomena -acute pulmonary edema raising question of possible dysfunction or on seeding of his prosthesis -this pulmonary edema was present yesterday after his dialysis session while at his usual dry weight -end-stage renal disease on dialysis; hyperkalemic today I have discussed this patient's case in detail with Dr. Smooth Sanderson, Dr. aJyy Malloy, and Jeannie Morfin of Cardiovascular surgery I have also consulted Dr. Altaf Santo of Infectious Disease and reviewed the case with her At this point I am concerned enough for the diagnoses mentioned above that we have plan to proceed with a transesophageal echocardiogram. Will continue with dialysis today to remove extra edema and keep his electrolytes in reasonable range. This is an additional session to his usual Saturday. Will continue on current antibiotics to cover his streptococcal disease, and Dr. Santo is going to discuss possible use a gentamicin with her partners in addition to beta-lactam antibiotic PLANS: -continue antibiotics cover for streptococcal bacteremia and endocarditis -transesophageal echocardiogram, review that with Cardiology and cardiovascular surgery -follow closely for any signs of embolic phenomena -continue dialysis with an extra session today and reassess daily with assessment of his fluid status and electrolytes and acidosis -I reviewed all of the above issues in detail with the patient and answered his questions. 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 Development Coordinator, my review: Sinus Exam: alert oriented Normal mentation, no cranial nerve or motor or speech language or sensory abnormalities No embolic phenomena noted in his oral pharyngeal exam, his digits, or anywhere else in his skin skin warm dry color ok resps not labored lungs clear BSs though diminished breath sounds, could high and quiet rales heart regular abd soft nondistended nontender, bowel sounds present limbs warm, no edema iv site ok I did review his chest x-ray image from the ER last night and it does indeed appear to me to have diffuse bilateral mild pulmonary edema without enlargement heart and without effusions. Objective: Vital Signs Temp Pulse Resp BP Pulse Ox 37.3 C 91 16 124/75 H 92 09/10/17 11:05 09/10/17 11:05 09/10/17 11:05 09/10/17 11:05 09/10/17 11:05 Microbiology 09/09/17 19:19 Blood Panel (PCR) - Final Blood Streptococcus 09/09/17 20:43 Respiratory Panel (PCR) - Final Nasal, Sinus - [place] Viral Transport No Organism Detected Laboratory Results 09/10/17 03:48 09/10/17 03:48 09/09/17 09/10/17 09/11/17 06:59 06:59 06:59 Intake Total 1050 Output Total 100 Balance 950 PT 19.0 SEC (12.0-15.0) H 09/10/17 03:48 INR 1.58 (0.83-1.16) H 09/10/17 03:48 - Time Spent With Patient Time Spent with Patient: greater than 35 minutes Time Spent with Patient: Greater than 35 minutes spent on this patients care, greater than 50% of time spent counseling, educating, and coordinating care regarding the above mentioned plan. ICD10 Worksheet Patient Problems: Problems Problem Status Onset Dyspnea Acute ESRD on hemodialysis Acute Elevated troponin Acute CHF (congestive heart failure) Chronic Postoperative pneumothorax Acute S/P mitral valve replacement with bioprosthetic valve Acute Anemia Chronic ESRD (end stage renal disease) Chronic Hypertensive urgency Chronic Severe mitral regurgitation Chronic
[2017-09-10] MEDS ORDERED: STERILE WATER IV SCH (21:00)
[2017-09-10] MEDS ORDERED: CEFEPIME HCL IV SCH (21:00)
[2017-09-10] MEDS: ZOLPIDEM TARTRATE 5 MG TAB PO PRN (21:29)
[2017-09-11 05:24] LABS: PLATELET COUNT 202 10^3/uL (150-400)
[2017-09-11 05:25] LABS: INR 1.87 (0.83-1.16); PROTIME(PATIENT) 21.6 SEC (12.0-15.0)
[2017-09-11] MEDS: HEPARIN 5,000 UNIT/0.5 ML SYR SC SCH ×3 (05:36→21:14)
[2017-09-11] MEDS: ACETAMINOPHEN 325 MG TAB PO PRN ×3 (05:38→19:58)
[2017-09-11] MEDS: oxyCODONE IR 5 MG TAB PO PRN ×4 (05:38→19:59)
[2017-09-11] MEDS: CARVEDILOL 25 MG TAB PO SCH ×2 (08:57→17:20)
[2017-09-11] MEDS ORDERED: EPOETIN ALFA 10,000 UNIT/ML VIAL SC PRN (09:00)
[2017-09-11] MEDS: SEVELAMER HCL 800 MG TAB PO SCH ×3 (09:09→17:20)
[2017-09-11] MEDS ORDERED: ATROPINE SULFATE 1 MG/10 ML SYR ONE (09:48)
--- NOTE | 2017-09-11 09:52 | PDANEPAE ---
ANE History of Present Illness SANJAY ANE Past Medical History - Cardiovascular History Hx Hypertension: Yes Hx Arrhythmias: No Hx Chest Pain: No Hx Coronary Artery / Peripheral Vascular Disease: No Hx CHF / Valvular Disease: Yes Hx Palpitations: No Cardiovascular History Comment: htn. mitral valve prolapse. chf - Pulmonary History Hx COPD: No Hx Asthma/Reactive Airway Disease: No Hx Recent Upper Respiratory Infection: No Hx Oxygen in Use at Home: No Hx Sleep Apnea: No Sleep Apnea Screening Result - Last Documented: Negative - Neurologic History Hx Cerebrovascular Accident: No Hx Seizures: No Hx Dementia: No Neurologic History Comment: migraines - Endocrine History Hx Diabetes: No - Renal History Hx Renal Disorders: Yes Renal History Comment: esrd. [facility] - Liver History Hx Hepatic Disorders: No - Neurological & Psychiatric Hx Hx Neurological and Psychiatric Disorders: No - Cancer History Hx Cancer: No - Congenital Disorder History Hx Congenital Disorders: No - GI History Hx Gastrointestinal Disorders: No - Other Health History Other Health History: missing teeth from previous surgery. fistula left wrist area - Chronic Pain History Chronic Pain: Yes (back pain, head) - Surgical History Prior Surgeries: 07/10/17 multiple dental extractions with Catrina. gallbladder removal. fistula placement ANE Review of Systems Review of Systems: - Exercise capacity Exercise capacity: limited by disability ANE Patient History - Allergies Allergies/Adverse Reactions: No Known Allergies Allergy (Verified 09/09/17 16:17) - Home Medications Home medications: home medication list seen and reviewed Home Medications: Furosemide [Lasix 80 MG (*)] 80 mg PO BID 06/21/17 [Last Taken 09/09/17 07:00] Epoetin Kirit [Procrit 55289 UNIT/ML (*)] 10,000 unit SC MOWEFR PRN 09/09/17 [ Last Taken 09/09/17] FLUoxetine HCL [Fluoxetine HCl] 40 mg PO DAILY 09/09/17 [Last Taken 09/09/17] Sevelamer Carbonate [Renvela] 2,400 mg PO TIDMEAL 09/09/17 [Last Taken 09/09/17 13:00] - NPO status NPO Status: no food or drink >8 hours NPO Since - Liquids (Date): 09/11/17 NPO Since - Liquids (Time): 00:00 NPO Since - Solids (Date): 09/11/17 NPO Since - Solids (Time): 00:00 - Anes Hx Anes Hx: no prior problems - Smoking Hx Smoking Status: Former smoker - Family Anes Hx Family Anes Hx: none Family Hx Anesthesia Complications: None ANE Labs/Vital Signs - Labs Result Diagrams: 09/11/17 04:50 09/11/17 04:50 - Vital Signs Blood Pressure: 156/94 Heart Rate: 98 Respiratory Rate: 15 O2 Sat (%): 95 Height: 175.26 cm Weight: 66.5 kg ANE Physical Exam - Airway Neck exam: FROM Mallampati Score: Class 1 Mouth exam: poor dentition - Pulmonary Pulmonary: no respiratory distress - Cardiovascular Cardiovascular: regular rate and rhythym - ASA Status ASA Status: IV ANE Anesthesia Plan Total IV Anesthesia: Yes Urgent/Emergent Case: Mika ferreira completed preop but documented later for safe timely pt care
--- NOTE | 2017-09-11 09:53 | PDHPUP ---
History & Physical Update H&P update statement: This history and physical update is based on an assessment of the patient which was completed after admission or registration (within 24 hours), but prior to the surgery/procedure 26 year old male with hx of Magna 25 mm Bioprosthetic Mitral Valve replacement in Jul 2017 in the setting of severe MR who was admitted 2 days ago with fevers and found to being bacteremic with Strep species. H&P update: H&P reviewed & patient examined, no change in patient's condition since H&P completed
[2017-09-11] MEDS ORDERED: PROPOFOL 200 MG/20 ML VIAL ONE ×2 (09:55)
[2017-09-11] MEDS ORDERED: ACETAMINOPHEN 500 MG TAB PO PRN (10:29)
[2017-09-11] MEDS ORDERED: fentaNYL 100 MCG/2 ML INJ IVP PRN (10:29)
[2017-09-11] MEDS ORDERED: OXYCODONE/APAP 5/325 TAB PO PRN (10:29)
[2017-09-11] MEDS ORDERED: HYDROCODONE/APAP 5/325 TAB PO PRN (10:29)
[2017-09-11] MEDS ORDERED: ONDANSETRON 4 MG/2 ML VIAL IVP PRN (10:29)
[2017-09-11] MEDS ORDERED: NALOXONE HCL 0.4 MG/ML INJ IVP PRN (10:29)
--- NOTE | 2017-09-11 10:29 | POSTANESTH ---
Post Anesthetic Evaluation Cardiovascular Status: Similar to Pre-Op Cond Respiratory Status: Similar to Pre-op Cond. Level of Consciousness/Mental Status: Can Participate in Eval, Mildly Sleepy, Arousable Pain Control: Adequate, Prn Tx Ordered Nausea/Vomiting Control: Adequate, Prn Tx Ordered Complications Possibly Related to Anesthesia: None Noted
[2017-09-11] MEDS: ASPIRIN 81 MG CHEWABLE TAB PO SCH (11:40)
[2017-09-11] MEDS: FUROSEMIDE 80 MG TAB PO SCH ×2 (11:42→17:20)
[2017-09-11] MEDS: cefTRIAXone 2 GM in STERILE WATER INJ 20 ML IV SCH (11:42)
[2017-09-11] MEDS: FLUoxetine 20 MG CAP PO SCH (11:43)
--- NOTE | 2017-09-11 13:45 | ASMTCMCOM ---
CM Note CM Note Notes: 09/11/2017 Case Management Note Faxed referrals to [facility] for pricing for likely home IV antibiotic needs. Pt has dialysis MWF, may be able to coordinate infusions with dialysis center. Case Management d/c poc: home with family support and IV infusion needs. Case Management to follow. Date Signed: 09/11/2017 01:45 PM Electronically Signed By:Lindy Ibarra RN
--- NOTE | 2017-09-11 13:45 | ECHO ---
[email or web address] [address] [address] Main: [phone] Fax: Transesophageal Echocardiography Name: CONRADO ESPINOSA MR#: [id number] Study Date: 09/11/2017 Study Time: 09:57 AM Date of : 1990 Age: 26 year(s) Height: ( ) Weight: ( ) BSA: Gender: Male Examination: SANJAY Indication: Bioprothetic Mitral Valve, #25 Magna bioprothesis Image Quality: Contrast: Requested by: Jordan Sanderson Heart Rate: Rhythm: BP: / Procedure Staff Assistant Baseball Coach: Andrea Melchor RDCS Reading Physician: Jordan Sanderson Requesting Provider: SANJAY Exam Details Conclusions: Normal global systolic LV function. There is septal dyskinesis/septal bounce with prior heart surgery. LVEF 60-65%. Normal RV function. A bioprothetic mitral valve is in place. The mitral valve prosthesis exhibits normal function. No vegetation on mitral valve prosthesis. No thrombus at mitral valve prosthesis. No mitral valve prosthesis abscess. There is no aortic valve vegetation. No tricuspid valve vegetation. Measurements: Chambers Valvular Assessment AV/MV Valvular Assessment TV/PV Normal Normal Normal Name Value Range Name Value Range Name Value Range TR Vmax: 2.62 mm/s ( - ) TR PGmax: 27 mmHg ( - ) syst. PAP: 32 mmHg ( - ) Additional Measurements: Valvular Assessment TV/PV Name Value Patient: CONRADO ESPINOSA Study Date: 09/11/2017 Page 1 of 2 09:57 AM CVP (est.): 5 mmHg Findings: Left Ventricle: Normal global systolic LV function. There is septal dyskinesis/septal bounce with prior heart surgery. LVEF 60-65%. Right Ventricle: Normal size right ventricle. Normal RV function. Left Atrium: The left atrium is normal in size. Right Atrium: The right atrium is normal in size. Mitral Valve: A bioprothetic mitral valve is in place. The mitral valve prosthesis exhibits normal function. No vegetation on mitral valve prosthesis. No thrombus at mitral valve prosthesis. No mitral valve prosthesis abscess. Aortic Valve: The aortic valve is normal in appearance and function. The aortic valve is tri-leaflet and functions normally. There is no aortic valve vegetation. Tricuspid Valve: Moderate tricuspid regurgitation is present. The pulmonary artery pressure is mildly increased. No tricuspid valve vegetation. Pulmonic Valve: The pulmonic valve is normal in appearance and function. Aorta: The aorta is normal. Pericardium: No pericardial effusion. l1n (No Signature Object) Patient: CONRADO ESPINOSA Study Date: 09/11/2017 Page 2 of 2 09:57 AM [id number]
--- NOTE | 2017-09-11 14:29 | SOAPPROG ---
[facility] Progress Note Assessment/Plan: Assessment: ESRD, HD today, is a MWF HD patient: seen on HD Strep Mitus bacteremia: Rocephin Recent bioprosthetic MVR, SANJAY neg for vegetation or abscess HTN, better overall volume overload better Plan: HD today Next HD Saturday continue antibiotics ? panorex 09/11/17 14:26 Subjective: Feels better today denies cp nausea vomiting or anorexia tired, didn't sleep well last night appetite OK spirits good Objective: Vital Signs Temp Pulse Resp BP Pulse Ox 36.8 C 85 15 154/95 H 94 09/11/17 11:27 09/11/17 11:27 09/11/17 11:27 09/11/17 11:27 09/11/17 11:27 Microbiology 09/09/17 19:19 Blood Panel (PCR) - Final Blood Streptococcus Laboratory Results 09/11/17 04:50 09/11/17 04:50 09/10/17 09/11/17 09/12/17 05:59 05:59 05:59 Intake Total 1050 870 Output Total 100 350 Balance 950 520 PT 21.6 SEC (12.0-15.0) H 09/11/17 04:50 INR 1.87 (0.83-1.16) H 09/11/17 04:50 Physical Exam - Physical Exam General Appearance: alert, thin Respiratory: rales, No rhonchi, No wheezing Cardiac/Chest: regular rate, rhythm, systolic murmur, No friction rub Abdomen: normal bowel sounds, non-tender, soft Extremities: No pedal edema Neuro/Psych: alert, normal mood/affect, oriented x 3 ICD10 Worksheet Patient Problems: Problems Problem Status Onset Dyspnea Acute ESRD on hemodialysis Acute Elevated troponin Acute CHF (congestive heart failure) Chronic Postoperative pneumothorax Acute S/P mitral valve replacement with bioprosthetic valve Acute Anemia Chronic ESRD (end stage renal disease) Chronic Hypertensive urgency Chronic Severe mitral regurgitation Chronic
--- NOTE | 2017-09-11 15:08 | PCMIDPN ---
Assessment/Plan: Assessment: Strep minus bacteremia in patient with prosthetic mitral valve. TTE and SANJAY do not show any obvious vegetation but this circumstance would dictate that we treat this patient as if they had prosthetic valve endocarditis. Will continue ceftriaxone monotherapy. Will likely need 6 weeks of duration. Plan: 1. Continue IV ceftriaxone. 2. Follow up repeat blood cultures. 3. Follow clinical course. Subjective: Patient is resting in bed. He has no complaints. No fevers or chills. Feels well. Objective: Ceftriaxone #2 Vital Signs Temp Pulse Resp BP Pulse Ox 36.8 C 85 15 154/95 H 94 09/11/17 11:27 09/11/17 11:27 09/11/17 11:27 09/11/17 11:27 09/11/17 11:27 Microbiology 09/09/17 19:19 Blood Panel (PCR) - Final Blood Streptococcus Laboratory Results 09/11/17 04:50 09/11/17 04:50 09/10/17 09/11/17 09/12/17 05:59 05:59 05:59 Intake Total 1050 870 Output Total 100 350 Balance 950 520 - Physical Exam General Appearance: WD/WN, alert, no apparent distress, non-toxic Respiratory: lungs clear, normal breath sounds, No respiratory distress Cardiac/Chest: regular rate, rhythm, No tachycardia Extremities: non-tender, normal inspection Skin: normal color, warm/dry, No rash Neuro/Psych: alert, normal mood/affect, oriented x 3 ICD10 Worksheet Patient Problems: Problems Problem Status Onset Dyspnea Acute ESRD on hemodialysis Acute Elevated troponin Acute CHF (congestive heart failure) Chronic Postoperative pneumothorax Acute S/P mitral valve replacement with bioprosthetic valve Acute Anemia Chronic ESRD (end stage renal disease) Chronic Hypertensive urgency Chronic Severe mitral regurgitation Chronic
[2017-09-11] MEDS: WARFARIN SODIUM 2.5 MG TAB PO SCH (17:20)
--- NOTE | 2017-09-11 18:22 | HOSPPROG ---
Hospitalist Progress Note Assessment/Plan: DIAGNOSES: -acute sepsis -streptococcal bacteremia / blood culture bottles with strep, not group a -clinical suspicion for acute bacterial endocarditis but his heart and valves on SANJAY show no vegetations or other abnormalities, no leak or unseating -at this time no evidence of any embolic phenomena -acute pulmonary edema resolved after dialysis -end-stage renal disease on dialysis -hyperkalemia at admission is now resolved after extra dialysis -inadequate anticoagulation for his heart valve at the time of admission, and renal remains low at 1.87 today, is getting heparin and his dialysis sessions which will take care of good part of the bridge therapy that would be indicated I reviewed case in detail today with Dr. Smooth Sanderson and Dr. Colby Foster. At this point the patient does not appear to have endocarditis by echocardiographic for study but with significant strep bacteremia and a recent prosthetic valve placed will want to give a full course of 6 week treatment protective heart. In addition we need to really work his Coumadin monitoring as he had not been getting outpatient monitoring since his surgery. I will talk with him more tomorrow with case management and will make sure that what we arranged does not have impediment that make it hard for him to get this taken care of properly. Will continue dialysis at this point on his usual schedule but watch for any need for extra sessions. PLANS: -continue antibiotics cover for streptococcal bacteremia and endocarditis -transesophageal echocardiogram, review that with Cardiology and cardiovascular surgery -follow closely for any signs of embolic phenomena -continue dialysis with an extra session today and reassess daily with assessment of his fluid status and electrolytes and acidosis -I reviewed all of the above issues in detail with the patient and answered his questions. 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 Lab data: INR 1.87 Hemoglobin remains low at 6.7 CBC otherwise unremarkable Electrolytes good and no sign of acidosis creatinine 6.3 Objective: Vital Signs Temp Pulse Resp BP Pulse Ox 36.8 C 85 15 173/111 H 94 09/11/17 16:00 09/11/17 17:20 09/11/17 16:00 09/11/17 17:20 09/11/17 16:00 Microbiology 09/09/17 19:19 Blood Panel (PCR) - Final Blood Streptococcus Laboratory Results 09/11/17 04:50 09/11/17 04:50 09/10/17 09/11/17 09/12/17 06:59 06:59 06:59 Intake Total 1050 870 Output Total 100 350 Balance 950 520 PT 21.6 SEC (12.0-15.0) H 09/11/17 04:50 INR 1.87 (0.83-1.16) H 09/11/17 04:50 - Time Spent With Patient Time Spent with Patient: greater than 35 minutes Time Spent with Patient: Greater than 35 minutes spent on this patients care, greater than 50% of time spent counseling, educating, and coordinating care regarding the above mentioned plan. ICD10 Worksheet Patient Problems: Problems Problem Status Onset Dyspnea Acute ESRD on hemodialysis Acute Elevated troponin Acute CHF (congestive heart failure) Chronic Postoperative pneumothorax Acute S/P mitral valve replacement with bioprosthetic valve Acute Anemia Chronic ESRD (end stage renal disease) Chronic Hypertensive urgency Chronic Severe mitral regurgitation Chronic
[2017-09-11] MEDS: ZOLPIDEM TARTRATE 5 MG TAB PO PRN (21:14)
[2017-09-12] MEDS: oxyCODONE IR 5 MG TAB PO PRN ×3 (04:52→18:15)
[2017-09-12] MEDS: ACETAMINOPHEN 325 MG TAB PO PRN ×3 (04:52→18:15)
[2017-09-12 05:35] LABS: PLATELET COUNT 206 10^3/uL (150-400)
[2017-09-12 06:02] LABS: INR 1.82 (0.83-1.16); PROTIME(PATIENT) 21.2 SEC (12.0-15.0)
[2017-09-12] MEDS: HEPARIN 5,000 UNIT/0.5 ML SYR SC SCH ×3 (06:39→20:56)
[2017-09-12] MEDS: SEVELAMER HCL 800 MG TAB PO SCH ×3 (07:45→18:11)
[2017-09-12] MEDS: CARVEDILOL 25 MG TAB PO SCH ×2 (07:48→18:09)
[2017-09-12] MEDS: ASPIRIN 81 MG CHEWABLE TAB PO SCH (07:49)
[2017-09-12] MEDS: FUROSEMIDE 80 MG TAB PO SCH ×2 (07:49→15:02)
[2017-09-12] MEDS: cefTRIAXone 2 GM in STERILE WATER INJ 20 ML IV SCH (08:45)
[2017-09-12] MEDS: FLUoxetine 20 MG CAP PO SCH (08:46)
--- NOTE | 2017-09-12 09:57 | PCMIDPN ---
Assessment/Plan: # S. Mitis bacteremia, suspect dental source w L upper molar caries. S Mitis w intermediate PCN BETZAIDA, low ceftriaxone BETZAIDA. Vanco BETZAIDA = 0.5. Despite neg SANJAY and no peripheral stigmata of endocarditis high concern for this complication in setting of MVR in the last month. So far blood cx 09/11 show clearance of bacteremia. AF since 09/09. --currently on ceftriaxone which will require PICC line, considering possible therapy w Vancomycin at HD, will discuss pros/cons with my team. Ceftriaxone is drug of choice but vancomycin would be more convenient. Will discuss again with patient Saturday. Continue ceftriaxone for now --needs ongoing dental care (no dental care since extractions in the hospital) --closely monitor INR while on antibiotics --October 23 stop date of abx # ESRD: could allow for intermittent therapy with vancomycin meds ceftriaxone 2gm IV daily Micro 09/11 blood cx (2) NGTD 09/09 blood cx (2/2) S. mitis Subjective: feeling generally well SOB much improved since MVR Objective: Vital Signs Temp Pulse Resp BP Pulse Ox 36.8 C 91 16 157/93 H 97 09/12/17 08:52 09/12/17 07:46 09/12/17 07:46 09/12/17 08:52 09/12/17 07:46 Microbiology 09/09/17 19:19 Blood Culture - Final Blood Streptococcus Mitis Group Blood Panel (PCR) - Final Streptococcus 09/09/17 20:20 Blood Culture - Final Blood Streptococcus Mitis Group Laboratory Results 09/12/17 04:20 09/12/17 04:20 09/11/17 09/12/17 09/13/17 05:59 05:59 05:59 Intake Total 870 730 Output Total 350 150 Balance 520 580 - Physical Exam General Appearance: alert, no apparent distress, thin EENT: pale conjunctiva, poor dentition, No thrush Respiratory: lungs clear, No accessory muscle use Neck: supple Cardiac/Chest: regular rate, rhythm, No systolic murmur Extremities: other (fisula L wrist with thrill), No pedal edema Skin: No embolic lesions Neuro/Psych: alert, normal mood/affect, oriented x 3 - Time Spent With Patient Time Spent with Patient: greater than 35 minutes (care coordinated with Dr. Agee and DR. Sanderson) Time Spent with Patient: Greater than 35 minutes spent on this patients care, greater than 50% of time spent counseling, educating, and coordinating care regarding the above mentioned plan. ICD10 Worksheet Patient Problems: Problems Problem Status Onset Dyspnea Acute ESRD on hemodialysis Acute Elevated troponin Acute CHF (congestive heart failure) Chronic Postoperative pneumothorax Acute S/P mitral valve replacement with bioprosthetic valve Acute Anemia Chronic ESRD (end stage renal disease) Chronic Hypertensive urgency Chronic Severe mitral regurgitation Chronic
[2017-09-12] MEDS: DIAZEPAM 10 MG/2 ML SYR IVP PRN ×2 (11:46→18:08)
--- NOTE | 2017-09-12 13:55 | SOAPPROG ---
[facility] Progress Note Assessment/Plan: Assessment: ESRD, HD Saturday, is a MWF HD patient Strep Mitus bacteremia: Rocephin Recent bioprosthetic MVR, SANJAY neg for vegetation or abscess HTN, better overall volume overload better will need ABX through 10/23/17 as outpatient may change to Vanco for convenience as outpatient needs more dental work, looking for places to get it done at reduced cost as [facility] has no funds. I've suggested [facility] ([place], [place]) dental school Plan: HD tomorrow continue antibiotics ? panorex, apparently not available while in patient ID note reviewed 09/11/17 14:26 09/12/17 13:52 Subjective: looks and feels better each day denies pain nausea vomiting anorexia or fatigue spirits good sleeping OK walking in the halls Objective: Vital Signs Temp Pulse Resp BP Pulse Ox 36.6 C 84 18 152/107 H 98 09/12/17 12:30 09/12/17 12:30 09/12/17 12:30 09/12/17 12:30 09/12/17 12:30 Microbiology 09/09/17 19:19 Blood Culture - Final Blood Streptococcus Mitis Group Blood Panel (PCR) - Final Streptococcus 09/09/17 20:20 Blood Culture - Final Blood Streptococcus Mitis Group Laboratory Results 09/12/17 04:20 09/12/17 04:20 09/11/17 09/12/17 09/13/17 05:59 05:59 05:59 Intake Total 870 730 Output Total 350 150 Balance 520 580 PT 21.2 SEC (12.0-15.0) H 09/12/17 04:20 INR 1.82 (0.83-1.16) H 09/12/17 04:20 Physical Exam - Physical Exam General Appearance: alert, thin Neck: full range of motion Respiratory: No rhonchi, No wheezing Cardiac/Chest: regular rate, rhythm, systolic murmur, No edema, No gallop, No friction rub Abdomen: normal bowel sounds, non-tender, soft, No distended Skin: normal color, warm/dry Extremities: other (AVF L FA good bruit and thrill), No swelling Neuro/Psych: alert, normal mood/affect, oriented x 3 ICD10 Worksheet Patient Problems: Problems Problem Status Onset Dyspnea Acute ESRD on hemodialysis Acute Elevated troponin Acute CHF (congestive heart failure) Chronic Postoperative pneumothorax Acute S/P mitral valve replacement with bioprosthetic valve Acute Anemia Chronic ESRD (end stage renal disease) Chronic Hypertensive urgency Chronic Severe mitral regurgitation Chronic
--- NOTE | 2017-09-12 13:55 | HOSPPROG ---
Hospitalist Progress Note Assessment/Plan: DIAGNOSES: -acute sepsis -streptococcal bacteremia / blood culture bottles with strep, not group a -clinical suspicion for acute bacterial endocarditis but his heart and valves on SANJAY show no vegetations or other abnormalities, no leak or unseating -at this time no evidence of any embolic phenomena -acute pulmonary edema, resolved after dialysis -end-stage renal disease on dialysis -hyperkalemia at admission is now resolved after extra dialysis -inadequate anticoagulation for his heart valve at the time of admission, coming up with extra doses of Coumadin and he is covered with bridging Lovenox for now -dental caries identified in posterior upper left molar without current signs of gingivitis I visited the patient together with Dr. Melany Ribera and we reviewed his case and care plan in detail together today with him. I also reviewed his status and care plan with Dr. Caleb Aguilar today. Also seen on multidisciplinary rounds PLANS: -continue antibiotics cover for streptococcal bacteremia and endocarditis -we did begin talking about his outpatient antibiotics. Due to concerns about having him with a PICC line in and due to concerns about cost as he has no insurance, it may be best to have him get vancomycin at dialysis center visits 3 times weekly. Will have ongoing discussions around these issues -continue dialysis and reassess daily with assessment of his fluid status and electrolytes and acidosis -I reviewed all of the above issues in detail with the patient and answered his questions. -have added some benzodiazepine for the moment for antianxiety, but it may be best to consider adding some antidepressant medicine to manage this long-term and I will have further discussions with him about that -continue Lovenox bridge until therapeutic on Coumadin -he will need to have ongoing dental care and has at least 1 tooth now that needs to be removed due to caries; will work with case management to see if we can get him set up for outpatient dental care at local [facility] SUBJECTIVE: Patient feels less febrile today not having chills or rigors, not as short of breath No chest pain No acute neurologic or any other embolic symptoms He does have some headache now on the dialysis session which is typical for him OBJECTIVE Vitals reviewed: Vitals and temperature is all normal 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 Practice 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 Lab data: INR 1.82 Hemoglobin remains low at 6.8 CBC otherwise unremarkable Electrolytes good and no sign of acidosis . Objective: Vital Signs Temp Pulse Resp BP Pulse Ox 36.6 C 84 18 152/107 H 98 09/12/17 12:30 09/12/17 12:30 09/12/17 12:30 09/12/17 12:30 09/12/17 12:30 Microbiology 09/09/17 19:19 Blood Culture - Final Blood Streptococcus Mitis Group Blood Panel (PCR) - Final Streptococcus 09/09/17 20:20 Blood Culture - Final Blood Streptococcus Mitis Group Laboratory Results 09/12/17 04:20 09/12/17 04:20 09/11/17 09/12/17 09/13/17 06:59 06:59 06:59 Intake Total 870 730 Output Total 350 150 Balance 520 580 PT 21.2 SEC (12.0-15.0) H 09/12/17 04:20 INR 1.82 (0.83-1.16) H 09/12/17 04:20 - Time Spent With Patient Time Spent with Patient: greater than 35 minutes Time Spent with Patient: Greater than 35 minutes spent on this patients care, greater than 50% of time spent counseling, educating, and coordinating care regarding the above mentioned plan. ICD10 Worksheet Patient Problems: Problems Problem Status Onset Dyspnea Acute ESRD on hemodialysis Acute Elevated troponin Acute CHF (congestive heart failure) Chronic Postoperative pneumothorax Acute S/P mitral valve replacement with bioprosthetic valve Acute Anemia Chronic ESRD (end stage renal disease) Chronic Hypertensive urgency Chronic Severe mitral regurgitation Chronic
--- NOTE | 2017-09-12 14:42 | ASMTCMCOM ---
CM Note CM Note Notes: Pts case reviewed in morning rounds. Dianelys reported that if pt continues w/ ceftriaxone 2mg daily he will owe $15/day for supplies and $3.35/wk for co pay. [facility] reported that pt will owe $179/week. LOLITA spoke w/ Monae Kumari in [facility] and pt will owe $4/day for outpatient infusion. Monae notified CM that pt has Medicare part A & B. CM to follow. Plan: TBD Date Signed: 09/12/2017 02:41 PM Electronically Signed By:ELIDIA Francisco
[2017-09-12] MEDS: MINOXIDIL 2.5 MG TAB PO SCH ×2 (15:55→20:55)
[2017-09-12] MEDS ORDERED: WARFARIN SODIUM 1 MG TAB PO ONE (16:00)
[2017-09-12] MEDS ORDERED: WARFARIN SODIUM 4 MG TAB PO SCH (16:00)
[2017-09-12] MEDS ORDERED: WARFARIN SODIUM 5 MG TAB PO ONE (16:00)
[2017-09-12] MEDS ORDERED: WARFARIN SODIUM 3 MG TAB PO ONE (16:00)
[2017-09-12] MEDS: ZOLPIDEM TARTRATE 5 MG TAB PO PRN (20:55)
[2017-09-13 04:28] LABS: PLATELET COUNT 233 10^3/uL (150-400)
[2017-09-13 04:37] LABS: INR 2.32 (0.83-1.16); PROTIME(PATIENT) 25.5 SEC (12.0-15.0)
[2017-09-13] MEDS: HEPARIN 5,000 UNIT/0.5 ML SYR SC SCH (05:02)
[2017-09-13] MEDS: ACETAMINOPHEN 325 MG TAB PO PRN ×3 (07:54→17:30)
[2017-09-13] MEDS: oxyCODONE IR 5 MG TAB PO PRN ×3 (07:54→17:30)
[2017-09-13] MEDS: SEVELAMER HCL 800 MG TAB PO SCH ×3 (07:55→18:23)
[2017-09-13] MEDS: DIAZEPAM 5 MG TAB PO PRN ×2 (09:57→15:00)
[2017-09-13] MEDS: FUROSEMIDE 80 MG TAB PO SCH ×2 (10:48→17:43)
[2017-09-13] MEDS ORDERED: ALTEPLASE 2 MG VIAL IVP PRN (11:05)
--- NOTE | 2017-09-13 11:06 | PCMIDPN ---
Assessment/Plan: # S. Mitis bacteremia, suspect dental source w L upper molar caries. S Mitis w intermediate PCN BETZAIDA, low ceftriaxone BETZAIDA. Vanco BETZAIDA = 0.5. Despite neg SANJAY and no peripheral stigmata of endocarditis high concern for this complication in setting of recent MVR (magna bioprosthesis 08/02/17) . blood cx 09/11 show clearance of bacteremia. AF since 09/09. --patient cannot have chronic picc line as needs to preserve blood vessels for future HD fistula --Vancomycin at HD MWF through October 23 stop date of abx, goal T 15-20 --need f/u with dentist as outpatient --case discussed with Dr. Duong , primary manager building # ESRD: could allow for intermittent therapy with vancomycin meds ceftriaxone 2gm IV daily Micro 09/11 blood cx (2) NGTD 09/09 blood cx (2/2) S. mitis Subjective: patient wanting to go home no c/o Objective: Vital Signs Temp Pulse Resp BP Pulse Ox 37.0 C 91 17 153/99 H 91 L 09/13/17 07:25 09/13/17 07:25 09/13/17 07:25 09/13/17 07:25 09/13/17 07:25 Microbiology 09/09/17 19:19 Blood Culture - Final Blood Streptococcus Mitis Group Blood Panel (PCR) - Final Streptococcus 09/09/17 20:20 Blood Culture - Final Blood Streptococcus Mitis Group Laboratory Results 09/13/17 03:18 09/13/17 03:18 09/12/17 09/13/17 09/14/17 05:59 05:59 05:59 Intake Total 730 1600 Output Total 150 100 Balance 580 1500 - Physical Exam General Appearance: alert, no apparent distress Respiratory: lungs clear, No accessory muscle use Neck: supple Cardiac/Chest: regular rate, rhythm, No systolic murmur Extremities: No pedal edema Skin: No rash, No embolic lesions Neuro/Psych: alert, normal mood/affect, oriented x 3 - Time Spent With Patient Time Spent with Patient: greater than 35 minutes (care coordinated with Dr. Agee, Dr. Malloy) Time Spent with Patient: Greater than 35 minutes spent on this patients care, greater than 50% of time spent counseling, educating, and coordinating care regarding the above mentioned plan. ICD10 Worksheet Patient Problems: Problems Problem Status Onset Dyspnea Acute ESRD on hemodialysis Acute Elevated troponin Acute CHF (congestive heart failure) Chronic Postoperative pneumothorax Acute S/P mitral valve replacement with bioprosthetic valve Acute Anemia Chronic ESRD (end stage renal disease) Chronic Hypertensive urgency Chronic Severe mitral regurgitation Chronic
--- NOTE | 2017-09-13 11:07 | PDIAF ---
- Diagnosis Diagnosis: streptococcal mitis bacteremia Code Status: Full Code - Medication Management Discharge Medications: Medications to Continue on Transfer Furosemide [Lasix 80 MG (*)] 80 mg PO BID 06/21/17 [Last Taken 09/09/17 07:00] Carvedilol [Coreg (*)] 25 mg PO BIDMEAL #60 tab 06/30/17 [Last Taken 09/09/17 07 :00] amLODIPine BESYLATE [Norvasc 10 mg (*)] 10 mg PO DAILY #30 tab 06/30/17 [Last Taken 09/09/17] Acetaminophen [Tylenol ES 500 mg (*)] 1,000 mg PO Q8 #0 tab 08/10/17 [Last Taken 09/09/17 13:00] Aspirin [Aspirin 81mg (*)] 81 mg PO DAILY tab.chew 08/10/17 [Last Taken 07:00] Minoxidil [Minoxidil 2.5 mg (*)] 5 mg PO BID #120 tab 08/10/17 [Last Taken 09/09 07:00] Warfarin Sodium [Coumadin 2.5MG (*)] 2.5 mg PO DAILY AT 4PM #90 tab 08/10/17 [ Last Taken 09/09/17] Epoetin Kirit [Procrit 76584 UNIT/ML (*)] 10,000 unit SC MOWEFR PRN 09/09/17 [ Last Taken 09/09/17] FLUoxetine HCL [Fluoxetine HCl] 40 mg PO DAILY 09/09/17 [Last Taken 09/09/17] Sevelamer Carbonate [Renvela] 2,400 mg PO TIDMEAL 09/09/17 [Last Taken 09/09/17 13:00] Fpc Antibiotics: ceftriaxone 2gm IV daily Fpc Antibiotic Stop Date: 10/22/17 Discharge Medications: Refer to the Discharge Home Medication list for PRN reason. - Orders Isolation Type: None - Labs/Radiology CBC w/diff Date: 09/16/17 (weekly saturday) CMP Date: 09/16/17 (weekly saturday) Call or Fax Lab and Imaging Results to: Melany Ribera MD [phone] - Follow Up Care Current Providers and Referrals: NONE *PRIMARY CARE P,. [Primary Care Provider] - As per Instructions Melany Ribera MD [Medical Doctor] - 09/24/17 11:00 am
[2017-09-13] MEDS: MINOXIDIL 2.5 MG TAB PO SCH (12:49)
[2017-09-13] MEDS: cefTRIAXone 2 GM in STERILE WATER INJ 20 ML IV SCH ×2 (12:50→15:36)
[2017-09-13] MEDS: CARVEDILOL 25 MG TAB PO SCH ×2 (12:50→17:30)
[2017-09-13] MEDS: ASPIRIN 81 MG CHEWABLE TAB PO SCH (12:50)
[2017-09-13] MEDS: FLUoxetine 20 MG CAP PO SCH (12:51)
--- NOTE | 2017-09-13 12:54 | SOAPPROG ---
JASON Progress Note Assessment/Plan: Assessment: 1. ESRD Seen on HD. Stable HD. 2. Strep Mitis bacteremia TTE ok. On ceftriaxone, to be given as outpt per ID recs 3. Anemia Stable. Will try to avoid further transfusions and alloimmunization 4. HTN Last BP quite high, otherwise they have been pretty good Plan: 09/13/17 12:50 Subjective: Seen on HD Objective: Vital Signs Temp Pulse Resp BP Pulse Ox 36.9 C 100 18 171/115 H 98 09/13/17 12:00 09/13/17 12:00 09/13/17 12:00 09/13/17 12:00 09/13/17 12:00 Microbiology 09/09/17 19:19 Blood Culture - Final Blood Streptococcus Mitis Group Blood Panel (PCR) - Final Streptococcus 09/09/17 20:20 Blood Culture - Final Blood Streptococcus Mitis Group Laboratory Results 09/13/17 03:18 09/13/17 03:18 09/12/17 09/13/17 09/14/17 05:59 05:59 05:59 Intake Total 730 1600 Output Total 150 100 175 Balance 580 1500 -175 PT 25.5 SEC (12.0-15.0) H 09/13/17 03:18 INR 2.32 (0.83-1.16) H 09/13/17 03:18 Physical Exam - Physical Exam General Appearance: no apparent distress Respiratory: lungs clear Cardiac/Chest: regular rate, rhythm Extremities: pedal edema (fistula site ok) Neuro/Psych: oriented x 3 ICD10 Worksheet Patient Problems: Problems Problem Status Onset Dyspnea Acute ESRD on hemodialysis Acute Elevated troponin Acute CHF (congestive heart failure) Chronic Postoperative pneumothorax Acute S/P mitral valve replacement with bioprosthetic valve Acute Anemia Chronic ESRD (end stage renal disease) Chronic Hypertensive urgency Chronic Severe mitral regurgitation Chronic
[2017-09-13] MEDS ORDERED: VANCOMYCIN 1.5 GM in D5W 250 ML IV ONE (15:02)
--- NOTE | 2017-09-13 15:07 | PDIAF ---
- Diagnosis Diagnosis: streptococcal mitis bacteremia Code Status: Full Code - Medication Management Discharge Medications: Medications to Continue on Transfer Furosemide [Lasix 80 MG (*)] 80 mg PO BID 06/21/17 [Last Taken 09/09/17 07:00] Carvedilol [Coreg (*)] 25 mg PO BIDMEAL #60 tab 06/30/17 [Last Taken 09/09/17 07 :00] amLODIPine BESYLATE [Norvasc 10 mg (*)] 10 mg PO DAILY #30 tab 06/30/17 [Last Taken 09/09/17] Acetaminophen [Tylenol ES 500 mg (*)] 1,000 mg PO Q8 #0 tab 08/10/17 [Last Taken 09/09/17 13:00] Aspirin [Aspirin 81mg (*)] 81 mg PO DAILY tab.chew 08/10/17 [Last Taken 07:00] Minoxidil [Minoxidil 2.5 mg (*)] 5 mg PO BID #120 tab 08/10/17 [Last Taken 09/09 07:00] Warfarin Sodium [Coumadin 2.5MG (*)] 2.5 mg PO DAILY AT 4PM #90 tab 08/10/17 [ Last Taken 09/09/17] Epoetin Kirit [Procrit 37307 UNIT/ML (*)] 10,000 unit SC MOWEFR PRN 09/09/17 [ Last Taken 09/09/17] FLUoxetine HCL [Fluoxetine HCl] 40 mg PO DAILY 09/09/17 [Last Taken 09/09/17] Sevelamer Carbonate [Renvela] 2,400 mg PO TIDMEAL 09/09/17 [Last Taken 09/09/17 13:00] Senior Living Antibiotics: vancomycin 1gm IV MWF at dialysis Senior [facility] Antibiotic Stop Date: 10/22/17 Discharge Medications: Refer to the Discharge Home Medication list for PRN reason. - Orders Isolation Type: None - Labs/Radiology CBC w/diff Date: 09/16/17 (weekly saturday) CMP Date: 09/16/17 (weekly saturday) Call or Fax Lab and Imaging Results to: Melany Ribera MD [phone] - Follow Up Care Current Providers and Referrals: Melany Ribera MD [Medical Doctor] - 09/24/17 11:00 am NONE *PRIMARY CARE P,. [Primary Care Provider] - As per Instructions
[2017-09-13] MEDS ORDERED: WARFARIN SODIUM 3 MG TAB PO SCH (16:00)
[2017-09-13] MEDS ORDERED: WARFARIN SODIUM 4 MG TAB PO SCH (16:00)
[2017-09-13] MEDS ORDERED: EPOETIN ALFA 10,000 UNIT/ML VIAL SC SCH (16:00)
--- NOTE | 2017-09-13 16:07 | ASMTCMCOM ---
CM Note CM Note Notes: Discussed pts case in morning rounds. Pt will have vanco 1gm IV during his MWF dialysis. CM orders sent to [facility] in [place]. CM scheduled an appointment w/ [facility] for 08/17/17 @ 2PM. CM inputted dental appointment in the d/c section. CM sent [facility] the doctors order for the tooth extraction. CM available for changes. Plan: Independent Plan: SHAVON MAYS with [employer] Date Signed: 09/13/2017 04:07 PM Electronically Signed By:ELIDIA Francisco
[2017-09-13 16:15] VITALS: BP 153/101; PULSE 94; RESP 16; TEMP 98.3; O2SAT 95
--- NOTE | 2017-09-13 16:28 | ASMTCMCOM ---
CM Note CM Note Notes: [facility] appointment is for 09/17/17 @ 2PM NOT 08/17/17. Date Signed: 09/13/2017 04:27 PM Electronically Signed By:ELIDIA Francisco
--- NOTE | 2017-09-13 17:24 | PDDCSUM ---
Discharge Summary Discharge Summary: DISCHARGE DIAGNOSES: -acute streptococcal bacteremia suspected oral source -mild pulmonary edema, resolved with dialysis -hyperkalemia -dental caries left upper 3rd molar -recent mitral valve replacement, no evidence of any vegetations on SANJAY -end-stage renal disease on dialysis, treated here with dialysis -anxiety disorder CONSULTANTS: Doctors Lawrence Banda and Melany Ribera of infectious disease Nephrology service PROCEDURES: Transthoracic and transesophageal echocardiograms with no evidence of valve vegetations or malfunction of valve prosthesis Hemodialysis on his routine schedule +1 extra session due to hyperkalemia and admission HOSPITAL COURSE SUMMARY: This unfortunate young man with history of end-stage renal disease and recently a mitral valve replacement, came in at this time with strep Midas back to uremia. There was some mild pulmonary edema leading to concern about trouble with his valve prosthesis, however transthoracic and transesophageal echoes showed normal seeding of the valve normal anatomy and function of the valve. There were no vegetations noted on the valves or anywhere else in the heart. The patient however is felt to be a very high risk for developing endocarditis and will be treated with antibiotics for 6 weeks. He has been treated with antibiotics here in the hospital initially with Ancef and his fevers and symptoms all resolved quite promptly. He now has negative blood cultures and is felt stable to discharge on continuing IV antibiotics. He has not had any embolic phenomena. There been no other complications of this infection. Due to the fact that the patient has dialysis dependent renal disease at his young age. It is not felt to be a good idea to have a PICC line in for several weeks leaving him at risk for being able to have a future dialysis access in that arm. Therefore we are discharging him to get vancomycin 3 times weekly at his dialysis unit. He was given a dose of vancomycin tonight and he will get his next vancomycin dose at his next dialysis session on Saturday 3 days from now. In addition to the above the patient was noted to be subtherapeutic on his anticoagulation. We reviewed the risks of this with him in detail and he is committed to having this monitored intended to and has an appointment in 4 days for recheck was an IR. He will be going home on a new higher dose of 3 mg Coumadin. He has a therapeutic INR now. Additionally he does have 1 tooth remaining with a cavity. This is the left upper 3rd molar. He had had 12 teeth removed before his heart valve replacement due to significant periodontal disease. His gums look to be in very good condition now. We have made a referral an appointment for him at [facility] to have his carries attended to and for ongoing dental maintenance care. PENDING TEST RESULTS: None MEDICATION CHANGES: Addition of vancomycin 1.5 g every 3rd day at dialysis, next dose on SaturdaySeptember 16 has been arranged Increase of a Coumadin dose to 3 mg daily FOLLOW-UP PLAN: At [facility] with Dr. Melany Ribera A dialysis center in 3 days An appointment is also been made at [facility] He has an appointment for his next INR check in 4 days Greater than 35 minutes bedside and care coordination time today
--- NOTE | 2017-09-17 11:54 | ASDISCHSUM ---
Discharge Information Plan Status:Home with No Needs Medically Cleared to Leave:09/12/2017 Discharge Date:09/13/2017 08:17 PM CM D/C Disposition:Home, Routine, Self-Care ADT D/C Disposition:Home, Routine, Self-Care Projected Discharge Date:09/13/2017 11:00 AM Transportation at D/C: Discharge Delay Reason: Follow-Up Date:09/13/2017 11:00 AM Discharge Slot: Final Diagnosis: Placement Information Referral Type:Home Infusion Referral ID:[id number] Provider Name: Address 1: Phone Number: Address 2: Fax Number: City: Selection Factors: State: Patient Contact Information Contact Name:JEFFERY Relationship:Mother Address:[address] Work Phone: City:[facility] Phone: [facility] Code:[place] [address] Email: Financial Information Financial Class: Primary Plan Desc:MEDICARE INPATIENT Primary Plan Number:[id number] Secondary Plan Desc:MED[place] Secondary Plan Number:[id number] Assessment Information [facility] CM Progress Note CM Note CM Note Notes: 09/10/2017 Case Management Note Reviewed pt case during rounds, discussed with RN. There are no immediate case management d/c needs identified d/t pt family support, age and previous connections to resources. Pt receives dialysis on Saturday, Saturday and Fridays. There are no PT or OT evals ordered at this time. Pt may possbily need IV antibiotics at d/c. Case Management d/c poc: anticipating independent Case Management to follow for possible d/c antibiotic needs. Date Signed: 09/10/2017 03:52 PM Electronically Signed By:Lindy Ibarra RN [facility] CM Progress Note CM Note CM Note Notes: 09/11/2017 Case Management Note Faxed referrals to [facility] for pricing for likely home IV antibiotic needs. Pt has dialysis MWF, may be able to coordinate infusions with dialysis center. Case Management d/c poc: home with family support and IV infusion needs. Case Management to follow. Date Signed: 09/11/2017 01:45 PM Electronically Signed By:Lindy Ibarra RN [facility] Progress Note CM Note CM Note Notes: Pts case reviewed in morning rounds. Dianelys reported that if pt continues w/ ceftriaxone 2mg daily he will owe $15/day for supplies and $3.35/wk for co pay. [facility] reported that pt will owe $179/week. spoke w/ Monae Kumari in [facility] and pt will owe $4/day for outpatient infusion. Monae notified that pt has Medicare part A & B. CM to follow. Plan: TBD Date Signed: 09/12/2017 02:41 PM Electronically Signed By:ELIDIA Francisco [facility] Progress Note CM Note CM Note Notes: Discussed pts case in morning rounds. Pt will have vanco 1gm IV during his MWF dialysis. CM orders sent to [facility] in [place]. [facility] scheduled an appointment w/ [facility] for 08/17/17 @ 2PM. CM inputted dental appointment in the d/c section. CM sent [facility] the doctors order for the tooth extraction. CM available for changes. Plan: Independent Plan: SHAVON MAYS with [employer] Date Signed: 09/13/2017 04:07 PM Electronically Signed By:ELIDIA Francisco [facility] Progress Note Note Note Notes: [facility] appointment is for 09/17/17 @ 2PM NOT 08/17/17. Date Signed: 09/13/2017 04:27 PM Electronically Signed By:ELIDIA Francisco Intervention Information
--- NOTE | 2017-09-17 16:07 | PQFORM ---
PHYSICIAN QUERY FORM Needs Your Response This query form is being sent to you to assure this patient record is coded properly. Please respond to the question below: FUNCTIONAL TESTER QUESTION: Dr. Agee, The H&P and Hospitalist Progress Notes dated 09/11/17 and 09/12/17 all state the patient has acute sepsis. The Discharge Summary, Infectious Disease Consultation, Nephrology Consultation and Cardiology Consultation all state the patient has Streptococcal bacteremia. Would the fever, tachycardia, gram+ cocci in chains in 4/4 bottles the patient presented with be most accurately diagnosed as: Acute (Streptococcal Mitis) sepsis Acute Streptococcal Mitis bacteremia suspected oral source Other Clinically undetermined Many thanks, YESICA Gregory [facility]/Coding Department W: [phone] INSTRUCTIONS FOR RESPONSE: Answer question by clicking on the "Edit Document" button. Move cursor to area below the stars. When complete, hit "Save." Click on the "Sign" button, then click "Sign" again. Type in your PIN and hit "Enter." Pt had acute sepsis due to streptococcus mitis infection MTDD
== END 2017-09-13 20:17 | disposition home or self-care (01) | DRG 871 ==
LOC: F2W 19:43
PROVIDERS: ADMIT Hospitalist; ATTEND Internal Medicine
PROC: 5A1D70Z Performance of Urinary Filtration, Intermittent, Less than 6 Hours Per Day (ICD-10-PCS; principal; 2017-09-10)
PROC: B246ZZ4 Ultrasonography of Right and Left Heart, Transesophageal (ICD-10-PCS; 2017-09-11)
PROC: 02HV33Z Insertion of Infusion Device into Superior Vena Cava, Percutaneous Approach (ICD-10-PCS; 2017-09-13)
DX: A40.8 Other streptococcal sepsis (principal); K02.9 Dental caries, unspecified; N18.6 End stage renal disease; I15.8 Other secondary hypertension; J81.0 Acute pulmonary edema; E87.5 Hyperkalemia; Z99.2 Dependence on renal dialysis; Z95.3 Presence of xenogenic heart valve; T45.516A Underdosing of anticoagulants, initial encounter; Z79.01 Long term (current) use of anticoagulants; Q60.0 Renal agenesis, unilateral; D63.1 Anemia in chronic kidney disease; F41.9 Anxiety disorder, unspecified; F32.9 Major depressive disorder, single episode, unspecified
CPT/HCPCS: 80307; 96374; C1751; G0480; J0461; J0692; J0696; J0885; J1644; J1885; J2270; J2704; J3360; J3370; P9016

== ENCOUNTER 2017-09-30 18:44 | Emergency (ER) | payer OTHER, MEDICAID ==
[2017-09-30 18:52] VITALS: BP 166/119; PULSE 114; RESP 18; TEMP 98.6; O2SAT 95
--- NOTE | 2017-09-30 18:55 | EDPHY ---
H & P Stated Complaint: chest heaviness, htn, h/a, dizzy, normal dialysis today Time Seen by Provider: 09/30/17 18:54 - Personal History Current Tetanus/Diphtheria Vaccine: Unsure - Medical/Surgical History Hx Asthma: No Hx Chronic Respiratory Disease: No Hx Diabetes: No Hx Cardiac Disease: Yes Hx Renal Disease: Yes Hx Cirrhosis: No Hx Alcoholism: No Hx HIV/AIDS: No Hx Splenectomy or Spleen Trauma: No Other PMH: PMHx: congenital lack of R kidney, failing L kidney dialysis, HTN, dental caries, chf, mitral valve prolapse w/replacement 07/2017. PSHx: chani - Social History Smoking Status: Former smoker Constitutional: Initial Vital Signs Temperature (C) 37.0 C 09/30/17 18:49 Heart Rate 114 H 09/30/17 18:49 Respiratory Rate 18 09/30/17 18:49 Blood Pressure 166/119 H 09/30/17 18:49 O2 Sat (%) 95 09/30/17 18:49 O2 Delivery Mode Room Air Allergies/Adverse Reactions: No Known Allergies Allergy (Verified 09/09/17 16:17) Home Medications: Medication Instructions Recorded Furosemide [Lasix 80 MG (*)] 80 mg PO BID 06/21/17 Carvedilol [Coreg (*)] 25 mg PO BIDMEAL #60 tab 06/30/17 amLODIPine BESYLATE [Norvasc 10 mg 10 mg PO DAILY #30 tab 06/30/17 (*)] Aspirin [Aspirin 81mg (*)] 81 mg PO DAILY tab.chew 08/10/17 Minoxidil [Minoxidil 2.5 mg (*)] 5 mg PO BID #120 tab 08/10/17 Epoetin Kirit [Procrit 84934 10,000 unit SC MOWEFR PRN 09/09/17 UNIT/ML (*)] FLUoxetine HCL [Fluoxetine HCl] 40 mg PO DAILY 09/09/17 Sevelamer Carbonate [Renvela] 2,400 mg PO TIDMEAL 09/09/17 Diazepam [Valium 5 MG (*)] 5 mg PO Q6HRS PRN #15 tab 09/13/17 Epoetin Kirit [Procrit 63050 10,000 unit SC MWF@1600 vial 09/13/17 UNIT/ML (*)] Warfarin Sodium [Coumadin 3MG (*)] 3 mg PO DAILY16 #30 tab 09/13/17 Medical Decision Making ED Course/Re-evaluation: CHIEF COMPLAINT: Chest pressure and shortness of breath HISTORY OF PRESENT ILLNESS: The patient is an anticoagulated (Coumadin) 26 y/o with a history of end stage renal disease (on dialysis) and a mitral valve replacement (July 2017), complaining of chest pressure and shortness of breath after his dialysis treatment today. When he had his mitral valve replacement, he had a normal heart catheterization. On 09/09/17, 2 weeks ago, he was seen in this ED for tachycardia and admitted for sepsis. He was discharged with Vancomycin to be given during dialysis and an increase in his Coumadin to 3mg daily. After his dialysis treatment today he developed a headache (which is normal), but he also developed a sensation of someone sitting on his chest. He still has this chest pressure, as well as low back pain, chills, and a mild cough. No abdominal pain , urinary or bowel complaints, fever, sore throat. Prior medical records reviewed including discharge summary on 09/13/17. REVIEW OF SYSTEMS: A 10 point review of systems was performed and is negative with the exception of the elements mentioned in the history of present illness. PHYSICAL EXAM: HR, BP, O2 Sat, RR. Temp noted General Appearance: Alert, well hydrated, appropriate, and non-toxic appearing. Head: Atraumatic without scalp tenderness or obvious injury Eyes: Pupils equal, round, reactive to light and accommodation, EOMI, no trauma , no injection. Ears: Clear bilaterally, no perforation, normal landmarks Nose: Atraumatic, no rhinorrhea, clear. Throat: Mucus membranes moist. Neck: Supple, nontender, no lymphadenopathy. Respiratory: No retractions, no distress, no wheezes, and no accessory muscle use. Lungs are clear to auscultation bilaterally. Cardiovascular: Borderline tachycardia, no murmurs, rubs, or gallops. Good capillary refill all extremities. Gastrointestinal: Abdomen is soft, nontender, non-distended, no masses, no rebound, no guarding, no peritoneal signs. Musculoskeletal: Normal active ROM of all extremities, atraumatic. Neurological: Alert, appropriate, and interactive. Non-focal neuro. Skin: No rashes, good turgor, no nodules on palpation. 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 MEDICAL DECISION MAKING: The patient is an anticoagulated (Coumadin) 26 y/o with a history of end stage renal disease (on dialysis) and a mitral valve replacement (July 2017) complaining of chest pressure, onset after receiving dialysis today. On exam he has borderline tachycardia. EKG and labs ordered. 1940: Patient's hematocrit is 24.7, which is not abnormal for him. He is chronically anemic secondary to his dialysis treatment. 1954: Patient is requesting medication for his headache; 10mg IV Reglan administered. 2007: Patient has a troponin of 0.044, which is due to his renal insufficiency. He also has an elevated d-dimer and a history of a heart catheterization. Plan on chest CT. 2008: Patient has left AMA. He is refusing chest CT and his EKG has not been completed yet. - Data Points Laboratory Results: Laboratory Results 09/30/17 19:15 09/30/17 09/30/17 09/30/17 19:15 19:15 19:15 WBC 5.87 10^3/uL 10^3/uL (3.80-9.50) RBC 2.90 10^6/uL L 10^6/uL (4.40-6.38) Hgb 8.1 g/dL L g/dL (13.7-17.5) Hct 24.7 % L % (40.0-51.0) MCV 85.2 fL fL (81.5-99.8) MCH 27.9 pg pg (27.9-34.1) MCHC 32.8 g/dL g/dL (32.4-36.7) RDW 16.0 % H % (11.5-15.2) Plt Count 152 10^3/uL 10^3/uL (150-400) MPV 8.2 fL L fL (8.7-11.7) Neut % (Auto) 74.2 % % (39.3-74.2) Lymph % (Auto) 13.1 % L % (15.0-45.0) Rice % (Auto) 5.8 % % (4.5-13.0) Eos % (Auto) 5.1 % % (0.6-7.6) Baso % (Auto) 0.9 % % (0.3-1.7) Nucleat RBC Rel Count 0.0 % % (0.0-0.2) Absolute Neuts (auto) 4.36 10^3/uL 10^3/uL (1.70-6.50) Absolute Lymphs (auto) 0.77 10^3/uL L 10^3/uL (1.00-3.00) Absolute Monos (auto) 0.34 10^3/uL 10^3/uL (0.30-0.80) Absolute Eos (auto) 0.30 10^3/uL 10^3/uL (0.03-0.40) Absolute Basos (auto) 0.05 10^3/uL 10^3/uL (0.02-0.10) Absolute Nucleated RBC 0.00 10^3/uL 10^3/uL (0-0.01) Immature Gran % 0.9 % % (0.0-1.1) Immature Gran # 0.05 10^3/uL 10^3/uL (0.00-0.10) D-Dimer 0.88 ug/mLFEU H ug/mLFEU (0.00-0.50) Sodium Pending Potassium Pending Chloride Pending Carbon Dioxide Pending Anion Gap Pending BUN Pending Creatinine Pending Estimated GFR Pending Glucose Pending Calcium Pending Troponin I 0.044 ng/mL H ng/mL (0.000-0.034) NT-Pro-B Natriuret Pep Pending Medications Given: Discontinued Medications Metoclopramide HCl (Reglan Injection) 10 mg IVP EDNOW ONE Stop: 09/30/17 19:57 Last Admin: 09/30/17 19:58 Dose: 10 mg Departure - Departure Disposition: Against Medical Advice Clinical Impression: Chest pain Qualifiers: Chest pain type: other chest pain Qualified Code(s): R07.89 - Other chest pain Condition: Fair Instructions: Chest Pain (ED) Additional Instructions: 1. Follow-up with your primary doctor within 72 hours. 2. Return to the Emergency Department for fever, chest pain, shortness of breath , increasing pain or other worsening of condition. 3. Follow up with a special needs bus driver for further testing, as soon as possible, within one week. 4. As we discussed, it is impossible to fully rule out heart disease as the cause of your chest pain in the emergency department. We would be happy to reevaluate you and observe you in the hospital at any time. Referrals: NONE *PRIMARY CARE P,. [Primary Care Provider] - As per Instructions Mason Jackson MD [Medical Doctor] - As per Instructions
--- NOTE | 2017-09-30 19:14 | CPEKG ---
Heart Rate: 111 RR Interval: 541 P-R Interval: 132 QRSD Interval: 76 QT Interval: 336 QTC Interval: 457 P Larue: 58 QRS Larue: -8 T Wave Larue: 99 EKG Severity - ABNORMAL ECG - EKG Impression: SINUS TACHYCARDIA EKG Impression: NONSPECIFIC T ABNORMALITIES, LATERAL LEADS Electronically Signed By: Andres Odell 02-Oct-2017 07:04:52
[2017-09-30 19:24] LABS: PLATELET COUNT 152 10^3/uL (150-400)
[2017-09-30] MEDS ORDERED: METOCLOPRAMIDE 10 MG/2 ML VIAL IVP ONE (19:56)
== END 2017-09-30 20:24 | disposition left against medical advice (07) ==
DX: R07.89 Other chest pain (principal); I13.2 Hypertensive heart and chronic kidney disease with heart failure and with stage 5 chronic kidney disease, or end stage renal disease; N18.6 End stage renal disease; I50.9 Heart failure, unspecified; Z79.01 Long term (current) use of anticoagulants; Z79.82 Long term (current) use of aspirin; Z87.891 Personal history of nicotine dependence; Z99.2 Dependence on renal dialysis
CPT/HCPCS: 93005; 96374; 99284; J2765

== ENCOUNTER 2017-10-05 11:46 | Emergency (ER) | payer OTHER, MEDICAID ==
[2017-10-05 11:56] VITALS: RESP 18; O2SAT 96
--- NOTE | 2017-10-05 12:37 | EDPHY ---
H & P Time Seen by Provider: 10/05/17 12:22 HPI/ROS: CHIEF COMPLAINT: Headache, weakness HISTORY OF PRESENT ILLNESS: 26-year-old male well-known to the emergency department presents to the emergency department by private vehicle with headache and weakness that began 3 days ago. The patient is a dialysis patient and had his dialysis yesterday and he felt like after his treatment, his headache was much worse. He states that the headache began on Saturday when he woke up and it has been constant since that time. He does have a history of intermittent headaches although "nothing this bad". No visual complaints. No nausea or vomiting. He states today the pain was worse in his head. He felt weak. He denies chest pain or difficulty breathing. Denies abdominal pain. REVIEW OF SYSTEMS: Constitutional: No fever, no chills. Eyes: No double or blurry vision. ENT: No sore throat. Respiratory: No cough, no shortness of breath. Cardiac: No chest pain. Gastrointestinal: No abdominal pain, vomiting or diarrhea. Genitourinary: No dysuria. Musculoskeletal: No neck or back pain. Skin: No rashes. Neurological: headache. Past Medical/Surgical History: Congenital lack of right kidney, end-stage renal disease, dialysis, hypertension , dental caries, CHF, mitral valve prolapse with valve replacement July 2017 , cholecystectomy Social History: Single and lives in [place] Smoking Status: Former smoker Physical Exam: General Appearance: Alert, no distress. Blood pressure 175/97, heart rate 105 , respirations 18, temperature 37.0 degrees, 96% on room air. Eyes: Pupils equal and round. Extraocular motions are all intact. ENT: Mouth: Mucous membranes moist. Respiratory: No wheezing, rhonchi, or rales, lungs are clear to auscultation. Cardiovascular: Regular rate and rhythm. Gastrointestinal: Abdomen is soft and nontender, no masses, no rebound or guarding, bowel sounds normal. Neurological: Alert and oriented x 3, cranial nerves II through XII grossly intact Skin: Warm and dry, no rashes. Musculoskeletal: Nontender to palpate along the cervical, thoracic or lumbar spine. Neck is supple. Extremities: Full range of motion and no peripheral edema. Fistula noted to the left wrist. Psychiatric: Patient is oriented X 3, there is no agitation. Constitutional: Initial Vital Signs Temperature (C) 37 C 10/05/17 11:50 Heart Rate 105 H 10/05/17 11:50 Respiratory Rate 18 10/05/17 11:50 Blood Pressure 175/97 H 10/05/17 11:50 O2 Sat (%) 96 10/05/17 11:50 O2 Delivery Mode Room Air Allergies/Adverse Reactions: No Known Allergies Allergy (Verified 10/05/17 11:52) Home Medications: Medication Instructions Recorded Furosemide [Lasix 80 MG (*)] 80 mg PO BID 06/21/17 Carvedilol [Coreg (*)] 25 mg PO BIDMEAL #60 tab 06/30/17 amLODIPine BESYLATE [Norvasc 10 mg 10 mg PO DAILY #30 tab 06/30/17 (*)] Aspirin [Aspirin 81mg (*)] 81 mg PO DAILY tab.chew 08/10/17 Minoxidil [Minoxidil 2.5 mg (*)] 5 mg PO BID #120 tab 08/10/17 Epoetin Kirit [Procrit 88773 10,000 unit SC MOWEFR PRN 09/09/17 UNIT/ML (*)] FLUoxetine HCL [Fluoxetine HCl] 40 mg PO DAILY 09/09/17 Sevelamer Carbonate [Renvela] 2,400 mg PO TIDMEAL 09/09/17 Diazepam [Valium 5 MG (*)] 5 mg PO Q6HRS PRN #15 tab 09/13/17 Epoetin Kirit [Procrit 48391 10,000 unit SC MWF@1600 vial 09/13/17 UNIT/ML (*)] Warfarin Sodium [Coumadin 3MG (*)] 3 mg PO DAILY16 #30 tab 09/13/17 Medical Decision Making ED Course/Re-evaluation: 26-year-old male presents to the emergency department with ongoing headaches. The patient is a dialysis patient. He also had a valve repair 2 months ago and was started on Coumadin. He does not know his last INR. He would like this checked today. He has been taking Tylenol for the headache. I do not think imaging studies are indicated. The patient did not have thunderclap onset. He does not describe this as the worst headache of his life. He does have a history of these types of headaches but he states that typically go away with Tylenol. The patient has a normal neurologic examination. Laboratory studies reveal normal CBC. His INR is low at 1.29. He states that he has been taking the warfarin 3 mg daily as prescribed. I encouraged him to have very close follow- up with his home delivery driver who was prescribing the warfarin to see if this needs to be increased to get him in more therapeutic range. His chemistries were elevated including creatinine 5.6. Again he has end-stage renal disease and has a dialysis patient. He is scheduled for dialysis again on Saturday. The case was discussed with Dr. Chato Kiran, secondary supervising physician, who did not directly evaluate the patient but agrees with treatment and plan. Differential Diagnosis: Headache including but not limited to subarachnoid hemorrhage, migraine headache , tension headache and infectious causes such as meningitis, pharyngitis and sinusitis. - Data Points Laboratory Results: Laboratory Results 10/05/17 12:40 10/05/17 12:40 Departure - Departure Disposition: Home, Routine, Self-Care Clinical Impression: Headache Qualifiers: Headache type: unspecified Headache chronicity pattern: acute headache Intractability: not intractable Qualified Code(s): R51 - Headache Condition: Good Instructions: Acute Headache (ED) Additional Instructions: Return if you develop change in headache symptoms or if you feel worse in any way. Your INR is 1.2. You should follow up with your home delivery driver to discuss your warfarin to obtain therapeutic range. Referrals: Shant Low MD [Medical Doctor] - As per Instructions (Cardiology)
[2017-10-05 12:46] LABS: PLATELET COUNT 172 10^3/uL (150-400)
[2017-10-05 13:00] LABS: INR 1.29 (0.83-1.16); PROTIME(PATIENT) 16.3 SEC (12.0-15.0)
[2017-10-05 14:07] VITALS: BP 146/98; PULSE 98; TEMP 99
== END 2017-10-05 14:09 | disposition home or self-care (01) ==
DX: R51 Headache (principal); I13.2 Hypertensive heart and chronic kidney disease with heart failure and with stage 5 chronic kidney disease, or end stage renal disease; I50.9 Heart failure, unspecified; N18.6 End stage renal disease; Z79.01 Long term (current) use of anticoagulants; Z79.82 Long term (current) use of aspirin; Z87.891 Personal history of nicotine dependence

== ENCOUNTER → 2017-12-13 | Outpatient (CLI) | payer OTHER, MEDICAID | LOC: BHFA 15:30 | PROVIDERS: ATTEND Internal Medicine Cardiovascular Disease | DX: Z95.2 Presence of prosthetic heart valve (principal) ==

== ENCOUNTER 2017-12-18 20:18 | Observation (INO) | payer OTHER, MEDICAID ==
--- NOTE | 2017-12-18 20:35 | CPEKG ---
Heart Rate: 97 RR Interval: 619 P-R Interval: 140 QRSD Interval: 86 QT Interval: 348 QTC Interval: 442 P [place]: 62 QRS [place]: -16 T Wave [place]: 111 EKG Severity - NORMAL ECG - EKG Impression: SINUS RHYTHM Electronically Signed By: Mayra Moyer 18-Dec-2017 23:05:21
[2017-12-18 20:53] LABS: PLATELET COUNT 212 10^3/uL (150-400)
--- NOTE | 2017-12-18 21:15 | EDPHY ---
H & P Stated Complaint: Weak, told to come to ED by Assistant Elementary Teacher Time Seen by Provider: 12/18/17 20:38 HPI/ROS: CHIEF COMPLAINT: Generalized weakness, shortness of breath HISTORY OF PRESENT ILLNESS: 27-year-old male with end-stage renal disease on dialysis presents with generalized weakness and shortness of breath. Onset of shortness or breath 1 week ago, gradually increasing since then. He feels short of breath with any exertion and has been mainly lying in bed for the past week. He has also had a frequent cough, no fever. History of pneumonia. He received dialysis today. Usual schedule is Saturday dialysis. REVIEW OF SYSTEMS: complete 10 point ROS negative except at noted in the HPI - Personal History Current Tetanus/Diphtheria Vaccine: Yes Current Tetanus Diphtheria and Acellular Pertussis (TDAP): Yes - Medical/Surgical History Hx Asthma: No Hx Chronic Respiratory Disease: No Hx Diabetes: No Hx Cardiac Disease: Yes Hx Renal Disease: Yes Hx Cirrhosis: No Hx Alcoholism: No Hx HIV/AIDS: No Hx Splenectomy or Spleen Trauma: No Other PMH: PMHx: congenital lack of R kidney, failing L kidney dialysis, HTN, dental caries, chf, mitral valve prolapse w/replacement 07/2017. PSHx: chani - Social History Smoking Status: Former smoker Alcohol Use: None Drug Use: None - Physical Exam Exam: General Appearance: Alert, pleasant Eyes: Pupils equal and round, no conjunctival injection ENT, Mouth: Mucous membranes moist Neck: Normal inspection Respiratory: Lungs are clear to auscultation Cardiovascular: Regular rate and rhythm, 2/6 systolic murmur Gastrointestinal: Abdomen is soft and nontender Neurological: A&O, nonfocal exam Skin: Warm and dry Extremities: Nontender, no pedal edema Psychiatric: Mood and affect normal Constitutional: Initial Vital Signs Heart Rate 98 12/18/17 20:22 Respiratory Rate 16 12/18/17 20:22 Blood Pressure 125/74 H 12/18/17 20:22 O2 Sat (%) 92 12/18/17 20:22 O2 Delivery Mode Room Air Allergies/Adverse Reactions: No Known Allergies Allergy (Verified 10/05/17 11:52) Home Medications: Medication Instructions Recorded Furosemide [Lasix 80 MG (*)] 80 mg PO BIDMEAL 06/21/17 Carvedilol [Coreg (*)] 25 mg PO BIDMEAL #60 tab 06/30/17 amLODIPine BESYLATE [Norvasc 10 mg 10 mg PO DAILY #30 tab 06/30/17 (*)] Aspirin [Aspirin 81mg (*)] 81 mg PO DAILY tab.chew 08/10/17 Epoetin Kirit [Procrit 99331 10,000 unit SC MOWEFR PRN 09/09/17 UNIT/ML (*)] Sevelamer Carbonate [Renvela] 2,400 mg PO TIDMEAL 09/09/17 Diazepam [Valium 5 MG (*)] 5 mg PO Q6HRS PRN #15 tab 09/13/17 Gabapentin [Neurontin 100 MG (*)] 100 mg PO HS 12/19/17 Minoxidil [Minoxidil 10 mg (*)] 10 mg PO BIDMEAL 12/19/17 levOFLOXACIN [levAQUIN (*)] 250 mg PO Q2D #3 tab 12/19/17 oxyCODONE HCL/ACETAMINOPHEN 1 each PO MWF PRN 12/19/17 [Percocet 10-325 mg Tablet] Medical Decision Making - Diagnostics EKG Interpretation: EKG interpreted by me reveals normal sinus rhythm, rate 97, no ST or T segment changes. Interpretation: Normal EKG Imaging Results: Chest X-Ray 12/18/17 20:38 Impression: CHF with pleural fluid +- right middle lobe pneumonia. Imaging: I viewed and interpreted images myself ED Course/Re-evaluation: This patient presents with shortness of breath generalized weakness and symptoms consistent with pneumonia. Chest x-ray reveals right middle lobe infiltrate, consistent with pneumonia. Blood cultures were drawn and cefepime and Levaquin IV given. Ddimer elevated at 3.7, consider PE, eval with VQ scan in the morning. Stable throughout his emergency department stay. [place] given for back pain. The hospitalist service was consulted for admission. Differential Diagnosis: Differential diagnosis includes though it is not limited to pneumonia, pneumothorax, pulmonary embolism, aortic dissection, pericarditis, acute coronary syndrome. - Data Points Laboratory Results: Laboratory Results 12/18/17 20:35 12/18/17 20:35 Medications Given: Discontinued Medications Acetaminophen (Tylenol) 650 mg PO Q4HRS PRN PRN Reason: Pain, Mild/Fever, Can Take PO Stop: 06/16/18 22:34 Last Admin: 12/18/17 23:27 Dose: 650 mg Hydrocodone Bitart/Acetaminophen ([place] 5/325) 1 tab PO EDNOW ONE Stop: 12/18/17 22:27 Last Admin: 12/18/17 22:29 Dose: 1 tab Carvedilol (Coreg) 25 mg PO BIDMEAL BRANDY Stop: 06/17/18 11:59 Last Admin: 12/19/17 12:13 Dose: 25 mg Furosemide (Lasix) 80 mg PO BIDMEAL BRANDY Stop: 06/17/18 17:59 Last Admin: 12/19/17 12:16 Dose: 80 mg Cefepime HCl 2 gm/ Sterile (Water) 12.5 mls @ 150 mls/hr IV EDNOW ONE PRN Reason: Protocol Stop: 12/18/17 22:02 Last Admin: 12/18/17 22:28 Dose: 12.5 mls Levofloxacin/Dextrose (Levaquin 750 Mg (Premix)) 150 mls @ 100 mls/hr IV EDNOW ONE PRN Reason: Protocol Stop: 12/18/17 23:27 Last Admin: 12/18/17 22:31 Dose: 150 mls Minoxidil (Minoxidil) 10 mg PO BIDMEAL BRANDY Stop: 06/17/18 17:59 Last Admin: 12/19/17 12:15 Dose: 10 mg Naproxen (Aleve) 220 mg PO EDNOW ONE Stop: 12/18/17 22:03 Last Admin: 12/18/17 22:38 Dose: Not Given Departure - Departure Disposition: [facility] Clinical Impression: Pneumonia Qualifiers: Pneumonia type: due to unspecified organism Laterality: right Lung location: middle lobe of lung Qualified Code(s): J18.1 - Lobar pneumonia, unspecified organism Condition: Fair
[2017-12-18] MEDS ORDERED: CEFEPIME HCL 2 GM in STERILE WATER INJ 12.5 ML IV ONE (21:58)
[2017-12-18] MEDS ORDERED: NAPROXEN SODIUM 220 MG TAB PO ONE (22:02)
[2017-12-18] MEDS ORDERED: HYDROCODONE/APAP 5/325 TAB PO ONE (22:26)
[2017-12-18] MEDS ORDERED: ONDANSETRON 4 MG/2 ML VIAL IVP PRN (22:35)
[2017-12-18] MEDS ORDERED: ACETAMINOPHEN 325 MG TAB PO PRN (22:35)
[2017-12-18] MEDS ORDERED: ONDANSETRON DISINTEGRATING 4 MG TAB PO PRN (22:35)
[2017-12-18] MEDS ORDERED: ALBUTEROL 3 ML DEYVIAL IH PRN (22:35)
--- NOTE | 2017-12-18 23:14 | PDGENHP ---
History and Physical - Chief Complaint Fatigue - History of Present Illness 27 yo M w/ ESRD, bioprosthetic MVR, and HTN presents with fatigue. Patient states he he has been feeling weak and fatigued for 1 week. He has also had a cough productive of green sputum and GAMBINO. He denies fever, chills, and chest pain. He has been at his dry weight of 68 kg and receiving regular MWF HD without missing any sessions. He denies orthopnea or PND. 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 bioprosthetic MVR - Family History Positive for: non-pertinent Additional family history: No family history of end-stage renal disease - Social History Smoking Status: Former smoker Alcohol Use: None Drug Use: None Additional social history: Reports he is currently living with his mother in [place], does not have any transportation beyond the local bus system Review of Systems Review of Systems: ROS: 10pt was reviewed & negative except for what was stated in HPI & below Physical Exam Physical Exam: Temp Pulse Resp BP Pulse Ox 37.3 C 96 21 H 126/75 H 93 12/18/17 22:13 12/18/17 22:13 12/18/17 22:13 12/18/17 22:13 12/18/17 22:13 O2 (L/minute) 2 Constitutional: not in pain, chronically ill appearing Eyes: PERRL, EOMI Ears, Nose, Mouth, Throat: moist mucous membranes, no oral mucosal ulcers Cardiovascular: regular rate and rhythym, systolic murmur, edema (Trace) Respiratory: no respiratory distress, reduced air movement (RLL, RML), inspiratory crackles (RML, RLL), rhonchi (RML, RLL) Gastrointestinal: normoactive bowel sounds, soft, non-tender abdomen Skin: warm, normal color Musculoskeletal: full muscle strength, no muscle tenderness Neurologic: AAOx3, CN II-XII Intact Psychiatric: interacting appropriately, not anxious Lab Data & Imaging Review 12/18/17 20:35 12/18/17 20:35 WBC 9.75 10^3/uL (3.80-9.50) H 12/18/17 20:35 RBC 3.02 10^6/uL (4.40-6.38) L 12/18/17 20:35 Hgb 8.4 g/dL (13.7-17.5) L 12/18/17 20:35 Hct 25.2 % (40.0-51.0) L 12/18/17 20:35 MCV 83.4 fL (81.5-99.8) 12/18/17 20:35 MCH 27.8 pg (27.9-34.1) L 12/18/17 20:35 MCHC 33.3 g/dL (32.4-36.7) 12/18/17 20:35 RDW 12.6 % (11.5-15.2) 12/18/17 20:35 Plt Count 212 10^3/uL (150-400) 12/18/17 20:35 MPV 9.0 fL (8.7-11.7) 12/18/17 20:35 Neut % (Auto) 78.9 % (39.3-74.2) H 12/18/17 20:35 Lymph % (Auto) 12.2 % (15.0-45.0) L 12/18/17 20:35 [place] % (Auto) 4.9 % (4.5-13.0) 12/18/17 20:35 Eos % (Auto) 3.3 % (0.6-7.6) 12/18/17 20:35 Baso % (Auto) 0.4 % (0.3-1.7) 12/18/17 20:35 Nucleat RBC Rel Count 0.0 % (0.0-0.2) 12/18/17 20:35 Absolute Neuts (auto) 7.69 10^3/uL (1.70-6.50) H 12/18/17 20:35 Absolute Lymphs (auto) 1.19 10^3/uL (1.00-3.00) 12/18/17 20:35 Absolute Monos (auto) 0.48 10^3/uL (0.30-0.80) 12/18/17 20:35 Absolute Eos (auto) 0.32 10^3/uL (0.03-0.40) 12/18/17 20:35 Absolute Basos (auto) 0.04 10^3/uL (0.02-0.10) 12/18/17 20:35 Absolute Nucleated RBC 0.00 10^3/uL (0-0.01) 12/18/17 20:35 Immature Gran % 0.3 % (0.0-1.1) 12/18/17 20:35 Immature Gran # 0.03 10^3/uL (0.00-0.10) 12/18/17 20:35 D-Dimer 3.47 ug/mLFEU (0.00-0.50) H 12/18/17 Unknown VBG Lactic Acid 0.4 mmol/L (0.7-2.1) L 12/18/17 22:05 Sodium 134 mEq/L (135-145) L 12/18/17 20:35 Potassium 4.1 mEq/L (3.5-5.2) 12/18/17 20:35 Chloride 88 mEq/L (97-110) L 12/18/17 20:35 Carbon Dioxide 30 mEq/l (22-31) 12/18/17 20:35 Anion Gap 16 mEq/L (8-16) 12/18/17 20:35 BUN 15 mg/dL (7-23) 12/18/17 20:35 Creatinine 5.1 mg/dL (0.7-1.3) H 12/18/17 20:35 Estimated GFR 14 12/18/17 20:35 Glucose 116 mg/dL (70-100) H 12/18/17 20:35 Calcium 9.4 mg/dL (8.5-10.4) 12/18/17 20:35 Total Bilirubin 0.9 mg/dL (0.1-1.4) 12/18/17 20:35 Conjugated Bilirubin 0.8 mg/dL (0.0-0.5) H 12/18/17 20:35 Unconjugated Bilirubin 0.1 mg/dL (0.0-1.1) 12/18/17 20:35 AST 23 IU/L (17-59) 12/18/17 20:35 ALT 30 IU/L (21-72) 12/18/17 20:35 Alkaline Phosphatase 103 IU/L (38-126) 12/18/17 20:35 Troponin I 0.014 ng/mL (0.000-0.034) 12/18/17 20:35 NT-Pro-B Natriuret Pep 82560 pg/mL (0-125) H 12/18/17 20:21 Total Protein 6.6 g/dL (6.3-8.2) 12/18/17 20:35 Albumin 3.9 g/dL (3.5-5.0) 12/18/17 20:35 Imaging Review: Imaging Impressions Chest X-Ray 12/18/17 20:38 Impression: CHF with pleural fluid +- right middle lobe pneumonia. Visualized and Interpreted Chest x-ray results: Yes Chest X-Ray results: infiltrate (RML) Visualized and Interpreted EKG results: Yes EKG Interpretation: Positive for: normal sinsus rhythm Assessment & Plan Assessment: 27 yo M w/ ERSD, bioprosthetic MVR, and HTN presents with 1 week of fatigue and found to have pneumonia on CXR. Plan: 1. Suspected pneumonia - RML infiltrate on CXR and 1 week of fatigue, cough, and GAMBINO. No evidence of sepsis physiology at this time. If symptoms not improving with antibiotic therapy, will need to consider possibility of cardiac etiology, possibly valvular noting hx of MVR. D-dimer elevated but patient is not hypoxic and has WELLS score of 0 so I will not further investigate PE at this time. - Admit for observation - Blood cultures, respiratory PCR, procalcitonin - S/p Cefepime and Levofloxacin in ED - Reasonable to continue levofloxacin noting frequent healthcare exposures; renal dosing is q48h so will not need a dose for 2 days 2. ESRD - As a result of congenital defect; receives regular MWF HD with last session on day of admission. He states he is currently at his dry weight. - Renal consult for HD while hospitalized - Renally dose medications - Continue home medications, needs reconciliation 3. Pulmonary edema - Unclear etiology as patient states he is at dry weight and has been receiving regular HD. He is also on daily furosemide. TTE and SANJAY in August showed normal functioning mitral valve. If symptoms not improving with antibiotics, may need another echocardiogram. 4. Hx bioprosthetic MVR - No longer on AC; TTE and SANJAY in August showed normal function. 5. HTN - Continue home medications, needs reconciliation Diet - Regular Code - Full Ppx - SCDs Dispo - Admit under observation status
[2017-12-18] MEDS ORDERED: ACETAMINOPHEN 325 MG TAB ONE (23:26)
[2017-12-19 05:03] LABS: PLATELET COUNT 182 10^3/uL (150-400)
[2017-12-19] MEDS ORDERED: EPOETIN ALFA 10,000 UNIT/ML VIAL SC PRN (10:31)
[2017-12-19] MEDS ORDERED: DIAZEPAM 5 MG TAB PO PRN (10:31)
[2017-12-19] MEDS ORDERED: NON-FORMULARY NEW DRUG (Oxycodone Hcl/Acetaminophen [Percocet 10-325 Mg Tablet] 1 EACH) PO PRN (10:31)
[2017-12-19] MEDS ORDERED: OXYCODONE/APAP 5/325 TAB PO PRN (11:26)
[2017-12-19] MEDS ORDERED: SEVELAMER CARBONATE 2400 MG PO SCH (12:00)
[2017-12-19] MEDS ORDERED: CARVEDILOL 25 MG TAB PO SCH ×2 (12:00→18:00)
[2017-12-19] MEDS ORDERED: SEVELAMER HCL 800 MG TAB PO SCH (12:00)
--- NOTE | 2017-12-19 13:25 | PDDCSUM ---
Discharge Summary Discharge Summary: This is a 27 yo male with hx of ESRD who was admitted with RML pneumonia. Received Levaquin with appropriate clinical response and improvement to Leukocytosis. He is back to RA. He is requesting d/c and as he is doing better I will discharge him. He is in agreement with this plan. He will cont Levaquin q 48 hr x 3 more doses. His next dose is tomorrow. He will get dialysis tomorrow per his usual schedule. DDX: #Right sided pneumonia #Leukocytosis #ESRD #Hx of bioprosthetic valve #HTN Exam: RA NAD AAOX3 RRR CTA B S/NT/ND NO LE EDEMA MEDS: SEE MED REC TOTAL TIME SPENT ON D/C IS 35 MINS
[2017-12-19 13:38] VITALS: BP 150/86
[2017-12-19] MEDS ORDERED: MINOXIDIL 10 MG TAB PO SCH (18:00)
[2017-12-19] MEDS ORDERED: FUROSEMIDE 80 MG TAB PO SCH (18:00)
[2017-12-19] MEDS ORDERED: GABAPENTIN 100 MG CAP PO SCH (21:00)
[2017-12-20] MEDS ORDERED: ASPIRIN 81 MG CHEWABLE TAB PO SCH (09:00)
== END 2017-12-19 14:17 | disposition home or self-care (01) ==
LOC: INTOOBSV 21:58 → F1N 23:56
PROVIDERS: ADMIT Internal Medicine; ATTEND Internal Medicine
DX: J18.9 Pneumonia, unspecified organism (principal); D72.829 Elevated white blood cell count, unspecified; I12.0 Hypertensive chronic kidney disease with stage 5 chronic kidney disease or end stage renal disease
CPT/HCPCS: 71046; 93005; G0378; J0692; J1956; 96374

== ENCOUNTER 2017-12-24 02:16 | Inpatient (IN) | payer OTHER, MEDICAID ==
--- NOTE | 2017-12-24 02:21 | EDPHY ---
H & P Time Seen by Provider: 12/24/17 02:21 HPI/ROS: HPI CHIEF COMPLAINT: Worsening Shortness of breath HISTORY OF PRESENT ILLNESS: Patient is a 27-year-old male, recently admitted and discharged on the or approximately 5 days ago with a right-sided pneumonia. He presents back to emergency room with worsening shortness of breath and fever. Upon arrival was noted to be tachypneic, tachycardic, febrile and hypoxic at triage. He does state that he gets hemodialysis Saturday. He did complete 4 hr of dialysis on Saturday or yesterday. Presents back to the emergency room with worsening respiratory symptoms. Past Medical History: End-stage renal disease on hemodialysis Saturday/Saturday/ Saturday, hypertension, Past Surgical History: Mitral valve, and gallbladder, left arm AV fistula Social History: Smokes marijuana denies other alcohol or illicit drugs. Family History: Noncontributory Patient goes to [facility] dialysis in [place]. ROS REVIEW OF SYSTEMS: A comprehensive 10 point review of systems is otherwise negative aside from elements mentioned in the history of present illness. Exam Constitutional nontoxic appearing, vital signs noted, triage nursing summary reviewed, vital signs reviewed, awake/alert. Triage vitals noted to be tachycardic, hypoxic and febrile Eyes normal conjunctivae and sclera, EOMI, PERRLA. HENT normal inspection, atraumatic, moist mucus membranes, no epistaxis, neck supple/ no meningismus, no raccoon eyes. Respiratory decreased breath sounds bilaterally, wheezing throughout, Cardiovascular tachycardic, regular rhythm, no murmur, no edema, distal pulses normal. Gastrointestinal soft, non-tender, no rebound, no guarding, normal bowel sounds, no distension, no pulsatile mass. Genitourinary no CVA tenderness. Musculoskeletal no midline vertebral tenderness, full range of motion, no calf swelling, no tenderness of extremities, no meningismus, good pulses, neurovascularly intact. Skin pink, warm, & dry, no rash, skin atraumatic. Neurologic awake, alert and oriented x 3, AAOx3, moves all 4 extremities equally, motor intact, sensory intact, CN II-XII intact, normal cerebellar, normal vision, normal speech. Psychiatric normal mood/affect. Heme/Lymph/Immune no lymphadenopathy. Differential Diagnosis: Includes but is not limited to in a particular order worsening pneumonia, sepsis, bacteremia, dehydration, hypoxia, hypoxic respiratory failure Medical Decision Making: Plan for this patient IV establishment blood cultures , lactic acid, chest x-ray, DuoNeb breathing treatment, IV fluid bolus 500 cc, re-evaluate. Re-evaluation: EKG interpretation by me on record in [employer] system. Impression time of EKG 2:30 a.m., sinus tach 119, T-wave abnormalities lateral leads V5 V6, [address] depression. No ST elevation. 0316: Patient's blood work is reviewed. There is no high leukocytosis. Chemistry panel still pending. Chest x-ray reviewed shows cardiomegaly bilateral pulmonary edema, worse than previous chest x-ray 5 days ago. I repeated the patient's blood cultures, additionally I have given the patient IV Levaquin. Patient is requiring supplemental oxygen. He does have a low-grade fever. Been given Tylenol. I have held his IV fluids at this time. Will check lactic acid. Additionally will proceed with CT scan of the chest without contrast further evaluate the lung opacifications pneumonia versus pulmonary edema versus pneumonia and pulmonary edema. 0345: CT scan of chest without contrast called to me by Dr. Roslyn Pedro. This shows pulmonary edema, fluid overload, additionally shows multifocal pneumonia. Also right-sided pleural effusion. I have ordered this patient IV Lasix. He does still make urine. I will admit the patient to step-down unit. Will admit under the hospitalist service. Additionally I will consult Nephrology. 0356: Spoke with Nephrology Dr. SUTTON, who will consult on the patient. Additionally spoke with Dr. Bedolla, agrees to admit patient. Patient is improving. Heart rate is down into the 115 region. Pulse ox 90% on 2 L. No acute distress. Patient be admitted to step-down unit for close monitoring. I have additionally increased his antibiotic coverage from IV Levaquin IV vancomycin IV Zosyn. Hemodynamically stable for admission to step-down unit. Source: Patient - Medical/Surgical History Hx Asthma: No Hx Chronic Respiratory Disease: No Hx Diabetes: No Hx Cardiac Disease: Yes Hx Renal Disease: Yes Hx Cirrhosis: No Hx Alcoholism: No Hx HIV/AIDS: No Hx Splenectomy or Spleen Trauma: No Other PMH: PMHx: congenital lack of R kidney, failing L kidney dialysis, HTN, dental caries, chf, mitral valve prolapse w/replacement 07/2017. PSHx: chani - Social History Smoking Status: Former smoker Constitutional: Initial Vital Signs Temperature (C) 38.2 C 12/24/17 02:19 Heart Rate 143 H 12/24/17 02:19 Respiratory Rate 20 12/24/17 02:19 Blood Pressure 151/107 H 12/24/17 02:19 O2 Sat (%) 89 L 12/24/17 02:19 O2 Delivery Mode Room Air Allergies/Adverse Reactions: No Known Allergies Allergy (Verified 12/24/17 02:21) Home Medications: Medication Instructions Recorded Furosemide [Lasix 80 MG (*)] 80 mg PO BIDMEAL 06/21/17 Carvedilol [Coreg (*)] 25 mg PO BIDMEAL #60 tab 06/30/17 amLODIPine BESYLATE [Norvasc 10 mg 10 mg PO DAILY #30 tab 06/30/17 (*)] Aspirin [Aspirin 81mg (*)] 81 mg PO DAILY tab.chew 08/10/17 Epoetin Kirit [Procrit 24925 10,000 unit SC MOWEFR PRN 09/09/17 UNIT/ML (*)] Sevelamer Carbonate [Renvela] 2,400 mg PO TIDMEAL 09/09/17 Diazepam [Valium 5 MG (*)] 5 mg PO Q6HRS PRN #15 tab 09/13/17 Gabapentin [Neurontin 100 MG (*)] 100 mg PO HS 12/19/17 Minoxidil [Minoxidil 10 mg (*)] 10 mg PO BIDMEAL 12/19/17 levOFLOXACIN [levAQUIN (*)] 250 mg PO Q2D #3 tab 12/19/17 oxyCODONE HCL/ACETAMINOPHEN 1 each PO MWF PRN 12/19/17 [Percocet 10-325 mg Tablet] Medical Decision Making - Diagnostics Imaging Results: Imaging Impressions Chest CT 12/24/17 03:09 Impression: 1. Multifocal consolidation, principally throughout the left lung, possibly related to pneumonia or less likely symmetric pulmonary edema. 2. Interlobular septal thickening with a moderate right and trace left pleural effusion, compatible with pulmonary edema. 3. Stable to slightly increased adenopathy. Continued follow up is recommended. Consider CT chest with contrast in 1 to 3 months. 4. Slight increase in splenomegaly. 5. Additional findings as above. The study was performed as an on-call case and discussed by telephone with Dr. Asael Miller on December 24, 2017 at 0344 hours. The preliminary and final reports were concordant. - Data Points Laboratory Results: Laboratory Results 12/24/17 02:45 12/24/17 02:45 12/24/17 03:20 Fluid pH Cancelled Fluid Meso/Macro/Smyth % 2 % % Fl Pathologist Review Pending Fluid Total Protein Pending Pleural Fluid Source PLEURAL Pleural Color ORANGE H (STRAW/YELL) Pleural Appearance CLOUDY H (CLEAR) Pleural pH 7.4 (6.8-7.6) Pleural WBC Pending Pleural RBC Pending Pleural Neutrophils 75 % % Pleural Eosinophils 17 % H % (0-10) Pleural Lymphocytes % 6 % % Pleural LDH 489 IU/L IU/L Pleural Glucose 88 mg/dL mg/dL (55-113) Microbiology Results: MICROBIOLOGY 12/24/17 03:20 Thoracic Fluid - Aspirate Gram Stain - Final Medications Given: Amlodipine Besylate (Norvasc) 10 mg PO DAILY [facility] Stop: 06/22/18 09:59 Last Admin: 12/24/17 10:40 Dose: 10 mg Aspirin (Aspirin) 81 mg PO DAILY BRANDY Stop: 06/22/18 09:59 Last Admin: 12/24/17 10:38 Dose: 81 mg Benzonatate (Tessalon Pearles) 100 mg PO TID PRN PRN Reason: Cough, Mild Stop: 06/22/18 05:44 Last Admin: 12/24/17 06:55 Dose: 100 mg Carvedilol (Coreg) 25 mg PO BIDMEAL [facility] Stop: 06/22/18 09:59 Last Admin: 12/24/17 17:30 Dose: Not Given Furosemide (Lasix) 80 mg PO BIDMEAL [facility] Stop: 06/22/18 17:59 Last Admin: 12/24/17 17:32 Dose: Not Given Guaifenesin/Codeine Phosphate (Robitussin Ac) 10 ml PO Q6HRS PRN PRN Reason: Cough, Moderate Stop: 06/22/18 05:44 Last Admin: 12/24/17 19:09 Dose: 10 ml Cefepime HCl 1 gm/ Sterile (Water) 11.3 mls @ 135.6 mls/hr IV DAILY@1700 BRANDY PRN Reason: Protocol Stop: 12/25/17 17:01 Last Admin: 12/24/17 17:30 Dose: Not Given Minoxidil (Minoxidil) 10 mg PO BIDMEAL BRANDY Stop: 06/22/18 17:59 Last Admin: 12/24/17 17:30 Dose: Not Given Oxycodone/Acetaminophen (Percocet 5/325) 1 - 2 tab PO Q4HRS PRN PRN Reason: Pain, Moderate Stop: 01/03/18 06:45 Last Admin: 12/24/17 18:06 Dose: 2 tab Sevelamer HCl (Renagel) 2,400 mg PO TIDMEAL BRANDY Stop: 06/22/18 11:59 Last Admin: 12/24/17 17:29 Dose: Not Given Discontinued Medications Acetaminophen (Tylenol) 1,000 mg PO EDNOW ONE Stop: 12/24/17 02:27 Last Admin: 12/24/17 02:54 Dose: 1,000 mg Albuterol/Ipratropium (Duoneb) 3 ml IH EDNOW ONE Stop: 12/24/17 02:27 Last Admin: 12/24/17 02:43 Dose: 3 ml Epoetin Kirit (Procrit) 10,000 unit SC ONCE ONE Stop: 12/24/17 14:01 Last Admin: 12/24/17 17:31 Dose: Not Given Furosemide (Lasix Injection) 40 mg IVP EDNOW ONE Stop: 12/24/17 03:45 Last Admin: 12/24/17 03:47 Dose: 40 mg Hydromorphone HCl (Dilaudid) 0.5 mg IVP EDNOW ONE Stop: 12/24/17 03:40 Last Admin: 12/24/17 03:44 Dose: 0.5 mg Sodium Chloride (Ns) 500 mls @ 1,000 mls/hr IV EDNOW ONE PRN Reason: Protocol Stop: 12/24/17 02:54 Last Admin: 12/24/17 02:54 Dose: 500 mls Levofloxacin/Dextrose (Levaquin 750 Mg (Premix)) 150 mls @ 100 mls/hr IV EDNOW ONE PRN Reason: Protocol Stop: 12/24/17 03:57 Last Admin: 12/24/17 02:54 Dose: 150 mls Vancomycin HCl 750 mg/ Sodium (Chloride) 165 mls @ 165 mls/hr IV Q48H [facility] Stop: 01/23/18 05:29 Last Admin: 12/24/17 05:42 Dose: 165 mls Piperacillin/Tazobactam/Dextrose (Zosyn 2.25 Gm (Premix)) 50 mls @ 100 mls/hr IV Q8 [facility] Stop: 01/23/18 05:59 Last Admin: 12/24/17 05:42 Dose: 50 mls Departure - Departure Disposition: [facility] Acute Clinical Impression: Hypoxia, Tachycardia Pulmonary edema Qualifiers: Chronicity: acute Qualified Code(s): J81.0 - Acute pulmonary edema Pneumonia Qualifiers: Pneumonia type: due to unspecified organism Laterality: bilateral Lung location : unspecified part of lung Qualified Code(s): J18.9 - Pneumonia, unspecified organism Fever Qualifiers: Fever type: unspecified Qualified Code(s): R50.9 - Fever, unspecified Condition: Serious
[2017-12-24] MEDS ORDERED: NS 500 ML IV ONE (02:25)
[2017-12-24] MEDS ORDERED: IPRATROPIUM/ALBUTEROL 3 ML DEYVIAL ONE (02:25)
[2017-12-24] MEDS ORDERED: IPRATROPIUM/ALBUTEROL 3 ML DEYVIAL IH ONE (02:26)
[2017-12-24] MEDS ORDERED: ACETAMINOPHEN 500 MG TAB PO ONE (02:26)
--- NOTE | 2017-12-24 02:32 | CPEKG ---
Heart Rate: 119 RR Interval: 504 P-R Interval: 132 QRSD Interval: 82 QT Interval: 316 QTC Interval: 445 P Columbia: 72 QRS Columbia: 3 T Wave Columbia: 120 EKG Severity - ABNORMAL ECG - EKG Impression: SINUS TACHYCARDIA EKG Impression: ABNORMAL T, CONSIDER ISCHEMIA, LATERAL LEADS Electronically Signed By: Andres Odell 26-Dec-2017 08:54:51
[2017-12-24 02:59] LABS: PLATELET COUNT 251 10^3/uL (150-400)
[2017-12-24 03:06] LABS: INR 1.13 (0.83-1.16); PROTIME(PATIENT) 14.7 SEC (12.0-15.0)
[2017-12-24 03:10] LABS: CREATINE KINASE 64 IU/L (0-224)
[2017-12-24] MEDS ORDERED: HYDROmorphONE/DILAUDID 2 MG/ML INJ IVP ONE (03:39)
[2017-12-24] MEDS ORDERED: FUROSEMIDE 40 MG/4 ML VIAL IVP ONE (03:44)
[2017-12-24] MEDS ORDERED: PIPERACILLIN/TAZO 4.5 GM/DEX 100 ML IV ONE (03:52)
[2017-12-24] MEDS ORDERED: VANCOMYCIN HCL/NORMAL SALINE 250 ML IV ONE (03:52)
[2017-12-24] MEDS ORDERED: ALBUTEROL 3 ML DEYVIAL IH PRN (03:53)
[2017-12-24] MEDS ORDERED: ACETAMINOPHEN 325 MG TAB PO PRN (03:53)
[2017-12-24] MEDS ORDERED: ONDANSETRON 4 MG/2 ML VIAL IVP PRN (03:53)
[2017-12-24] MEDS ORDERED: VANCOMYCIN 750 MG in D5W 150 ML IV SCH (05:30)
[2017-12-24] MEDS ORDERED: VANCOMYCIN PHARMACY TO DOSE MISC SCH (05:45)
[2017-12-24] MEDS ORDERED: BENZONATATE 100 MG CAP PO PRN (05:45)
[2017-12-24] MEDS ORDERED: VANCOMYCIN 750 MG in NS 150 ML IV SCH (06:00)
[2017-12-24] MEDS ORDERED: PIPERACILLIN/TAZO 2.25 GM/DEX 50 ML IV SCH ×2 (06:00)
[2017-12-24] MEDS: guaiFENesin/CODEINE PHOS 10 ML UDCUP PO PRN ×3 (06:04→19:09)
--- NOTE | 2017-12-24 06:11 | PDGENHP ---
History and Physical - Chief Complaint Cough and shortness of breath - History of Present Illness Source-patient provides history and appears reliable. EMR was reviewed and case discussed with ED provider. HPI-pleasant 27-year-old gentleman with past medical history significant for end -stage renal disease on dialysis Saturday secondary to failing solitary kidney on, CHF, history of mitral valve prolapse status post animal donor valve who was recently hospitalized last week for right pneumonia. Patient was started on Levaquin and discharge. He reports that he completed his prescribed course however he noted that he continued to have coughing that worsened and was increasingly productive of green sputum as well as increasing shortness of breath. Patient was discharged with home oxygen to wear at HS but he found that he was needing intermittently during the daytime as well for to improve his symptoms. Patient also was continuing to experience fevers and chills. Early this morning patient woke up from sleep with severe shortness of breath requiring patient to lean forward. At that point he felt he needed to be evaluated in the emergency department. In the ED-patient was noted to be tachycardic and hypoxic with improvement on supplemental oxygen. He underwent imaging studies that showed worsening opacities in fluid collection on an x-ray. Patient underwent CT of the chest that was significant for right middle consolidation as well as evidence of pulmonary edema. Patient denies any lower extremity edema. He did complete 4 hr of dialysis yesterday. Patient reports that his dry weight has been increasingly challenged. He does make a very little amount of urine once a day he denies any symptoms of dysuria or hematuria. History Information - Allergies/Home Medication List Allergies/Adverse Reactions: No Known Allergies Allergy (Verified 12/24/17 02:21) Home Medications: Furosemide [Lasix 80 MG (*)] 80 mg PO BIDMEAL 06/21/17 [Last Taken 12/18/17 19: 00] Epoetin Kirit [Procrit 41979 UNIT/ML (*)] 10,000 unit SC MOWEFR PRN 09/09/17 [ Last Taken 12/18/17] Sevelamer Carbonate [Renvela] 2,400 mg PO TIDMEAL 09/09/17 [Last Taken 12/18/17 18:00] Gabapentin [Neurontin 100 MG (*)] 100 mg PO HS 12/19/17 [Last Taken 12/17/17] Minoxidil [Minoxidil 10 mg (*)] 10 mg PO BIDMEAL 12/19/17 [Last Taken 12/18/17 19:00] oxyCODONE HCL/ACETAMINOPHEN [Percocet 10-325 mg Tablet] 1 each PO MWF PRN [Last Taken 12/18/17] I have personally reviewed and updated: family history, medical history, social history, surgical history - Past Medical History CHF, ESRD Additional medical history: ESRD secondary to solitary kidney, on HD [facility]. CHF, history of mitral valve prolapse status post replacement with animal donor valve. Anemia of chronic kidney disease on Procrit - Surgical History Additional surgical history: LUE AVF creation. bioprosthetic MVR. Cholecystectomy - Family History Positive for: non-pertinent Additional family history: No family history of end-stage renal disease - Social History Smoking Status: Former smoker Alcohol Use: None Drug Use: Marijuana Additional social history: Reports he is currently living with his mother in [place], does not have any transportation beyond the local bus system. Cor status-full Review of Systems Review of Systems: ROS: 10pt was reviewed & negative except for what was stated in HPI & below Constitutional: Reports: chills, fever, other (Decreased appetite). Denies: weight loss EENMT: Reports: other (Rhinorrhea with oxygen supplementation). Denies: double vision, nose congestion, sore throat Cardiac: Reports: chest pain (Pleuritic-type chest pain with coughing on the right side.). Denies: edema, lightheadedness, palpitations Respiratory: Reports: cough, shortness of breath, other (Increased WOB. Need for O2 supplementation). Denies: orthopnea, wheezing Gastrointestinal: Reports: no symptoms. Denies: vomitting, abdominal distention , diarrhea, nausea Genitourinary: Reports: no symptoms, other (Makes very little urine daily). Denies: discharge, hematuria Muscolosketal: Reports: muscle pain (Diffusely). Denies: joint pain Skin: Reports: no symptoms. Denies: rash Neurological: Denies: anxiety, depressed, numbness, tingling Hematologic/Lymphatic: Reports: anemia Physical Exam Physical Exam: Selected Entries 12/24/17 02:19 Blood Pressure Automatic Method Heart Rate 143 H Respiratory 20 Rate O2 Sat (%) 89 L Temperature (C) 38.2 C Blood Pressure 151/107 H Mean Arterial 121 H Pressure (MAP) O2 Delivery Room Air Mode Temperature Oral Source Temp Pulse Resp BP Pulse Ox 36.9 C 100 14 136/76 H 94 12/24/17 05:32 12/24/17 05:32 18 05:32 12/24/17 05:32 12/24/17 05:32 O2 (L/minute) 2 Constitutional: no apparent distress, chronically ill appearing, other (NAD. Pleasant adult gentleman sitting up comfortably in bed awake. Chronically ill- appearing.) Eyes: PERRL, anicteric sclera, EOMI, No scleral injection Ears, Nose, Mouth, Throat: no oral mucosal ulcers, dry mucous membranes, other ( Fair dentition) Cardiovascular: regular rate and rhythym, no murmur, rub, or gallop, pulses symmetric bilaterally, tachycardia (One 100s), No systolic murmur, No edema Peripheral Pulses: 2+: dorsalis-pedis (R), dorsalis-pedis (L) Respiratory: no respiratory distress, clear to auscultation, inspiratory crackles (Right greater than left base), No expiratory wheeze, No respiratory distress, No rhonchi Gastrointestinal: normoactive bowel sounds, soft, non-tender abdomen, no palpable masses, No tenderness, No distension Genitourinary: no bladder tenderness, No heller in urethra Skin: warm, no rashes or abrasions, No rash Musculoskeletal: full muscle strength (Grossly normal. Moves all extremities.) Neurologic: AAOx3, sensation intact bilaterally, other (Nonfocal exam), No numbness, No facial droop Psychiatric: interacting appropriately, not encephalopathic, thought process linear, No anxious, No depressed, No poor insight, No poor judgement, No poor memory Lymph, Heme, Immunologic: no cervical LAD Lab Data & Imaging Review 12/24/17 02:45 12/24/17 02:45 WBC 6.45 10^3/uL (3.80-9.50) 12/24/17 02:45 RBC 2.83 10^6/uL (4.40-6.38) L 12/24/17 02:45 Hgb 7.9 g/dL (13.7-17.5) L 12/24/17 02:45 Hct 23.3 % (40.0-51.0) L 12/24/17 02:45 MCV 82.3 fL (81.5-99.8) 12/24/17 02:45 MCH 27.9 pg (27.9-34.1) 12/24/17 02:45 MCHC 33.9 g/dL (32.4-36.7) 12/24/17 02:45 RDW 12.6 % (11.5-15.2) 12/24/17 02:45 Plt Count 251 10^3/uL (150-400) 12/24/17 02:45 MPV 9.1 fL (8.7-11.7) 12/24/17 02:45 Neut % (Auto) 71.6 % (39.3-74.2) 12/24/17 02:45 Lymph % (Auto) 17.1 % (15.0-45.0) 12/24/17 02:45 Maries % (Auto) 7.0 % (4.5-13.0) 12/24/17 02:45 Eos % (Auto) 3.4 % (0.6-7.6) 12/24/17 02:45 Baso % (Auto) 0.6 % (0.3-1.7) 12/24/17 02:45 Nucleat RBC Rel Count 0.0 % (0.0-0.2) 12/24/17 02:45 Absolute Neuts (auto) 4.62 10^3/uL (1.70-6.50) 12/24/17 02:45 Absolute Lymphs (auto) 1.10 10^3/uL (1.00-3.00) 12/24/17 02:45 Absolute Monos (auto) 0.45 10^3/uL (0.30-0.80) 12/24/17 02:45 Absolute Eos (auto) 0.22 10^3/uL (0.03-0.40) 12/24/17 02:45 Absolute Basos (auto) 0.04 10^3/uL (0.02-0.10) 12/24/17 02:45 Absolute Nucleated RBC 0.00 10^3/uL (0-0.01) 12/24/17 02:45 Immature Gran % 0.3 % (0.0-1.1) 12/24/17 02:45 Immature Gran # 0.02 10^3/uL (0.00-0.10) 12/24/17 02:45 PT 14.7 SEC (12.0-15.0) 12/24/17 02:45 INR 1.13 (0.83-1.16) 12/24/17 02:45 APTT 26.9 SEC (23.0-38.0) 12/24/17 02:45 VBG Lactic Acid 0.8 mmol/L (0.7-2.1) 12/24/17 03:00 Sodium 141 mEq/L (135-145) 12/24/17 02:45 Potassium 4.2 mEq/L (3.3-5.0) 12/24/17 02:45 Chloride 96 mEq/L (97-110) L 12/24/17 02:45 Carbon Dioxide 30 mEq/l (22-31) 12/24/17 02:45 Anion Gap 15 mEq/L (8-16) 12/24/17 02:45 BUN 29 mg/dL (7-23) H 12/24/17 02:45 Creatinine 7.5 mg/dL (0.7-1.3) H 12/24/17 02:45 Estimated GFR 9 12/24/17 02:45 Glucose 92 mg/dL (70-100) 12/24/17 02:45 Calcium 9.2 mg/dL (8.5-10.4) 12/24/17 02:45 Magnesium 2.2 mg/dL (1.6-2.3) 12/24/17 02:45 Total Bilirubin 1.2 mg/dL (0.1-1.4) 12/24/17 02:45 Conjugated Bilirubin 0.8 mg/dL (0.0-0.5) H 12/24/17 02:45 Unconjugated Bilirubin 0.4 mg/dL (0.0-1.1) 12/24/17 02:45 AST 29 IU/L (17-59) 12/24/17 02:45 ALT 33 IU/L (21-72) 12/24/17 02:45 Alkaline Phosphatase 143 IU/L (38-126) H 12/24/17 02:45 Creatine Kinase 64 IU/L (0-224) 12/24/17 02:45 CK-MB (CK-2) Fraction 0.46 ng/mL (0.00-3.19) 12/24/17 02:45 Troponin I 0.042 ng/mL (0.000-0.034) H 12/24/17 02:45 NT-Pro-B Natriuret Pep 36377 pg/mL (0-125) H 12/24/17 02:45 Total Protein 6.8 g/dL (6.3-8.2) 12/24/17 02:45 Albumin 3.8 g/dL (3.5-5.0) 12/24/17 02:45 Imaging Review: Chest x-ray-image reviewed myself report is still pending. Patient with multifocal consolidations as well as increase pulmonary edema bilaterally compared to x-ray last week. CT chest without contrast image and preliminary Radiology report reviewed as noted below -Left lung consolidation suggesting pneumonia or less likely asym pulm edema pulmonary edema with mod right pleural effusion adenopathy, splenomegaly both mildly increased since june ct d/w at 344 Visualized and Interpreted Chest x-ray results: Yes Visualized and Interpreted imaging results: Yes Assessment & Plan Assessment: Pleasant 27-year-old gentleman with past medical history significant for end- stage renal disease on dialysis and MWF, CHF, history of mitral bioprosthetic valve, HTN who presents emergency department with complaints of progressive dyspnea, fever and cough. Pneumonia- patient with right-sided consolidation not consistent with pulmonary edema. He was recently history did for pneumonia and completed a 5 day course of Levaquin per patient report he took all the medicines. He continues to have sputum production fevers chills. Patient's antibiotic therapy will be escalated to Zosyn and vancomycin given his history of dialysis. Lactate is within normal limits. Blood cultures x2 are pending. Sputum culture has been ordered. Pulmonary edema (Acute) - patient with history of CHF and end-stage renal disease. Evidence of pulmonary edema and pleural effusions. Nephrology consulted to assist with patient's renal disease. Patient reports he did complete 4 hr of dialysis yesterday. Patient was given Lasix in the emergency department but has yet to make any urine. Hypoxia (Acute) - secondary to pneumonia and pulmonary edema. patient requiring supplemental oxygen at this time. Maintain sats greater than 90%. ESRD - nephrology consulted to assist with management. CHF NOS - as noted above. Anemia of chronic kidney disease - H&H stable close to baseline. Patient does receive Procrit. No evidence of active bleeding at this time. Continue monitor H&H. FEN - saline lock IV after antibiotic therapy infuse. Electrolyte monitoring and replacement p.r.n. Patient was requesting regular diet does not want renal diet is he does not eat this at home. PPX-SCDs. Holding anticoagulation in setting of anemia or as per Nephrology. Cor status - full. Disposition-patient admitted to inpatient status on ST you floor for closer monitoring given his hypoxia with pneumonia and pulmonary edema as well as potential for worsening symptoms. Anticipate greater than 2 midnight stay.
[2017-12-24] MEDS: OXYCODONE/APAP 5/325 TAB PO PRN ×4 (06:54→22:58)
--- NOTE | 2017-12-24 09:19 | PDMN ---
Medical Necessity Medical necessity: Pt meets IP criteria per MD; est los >2 mn for eval/tx of hypoxia w/pneumonia, pulmonary edema & pleural effusions; admit to SDU for close monitoring, supportive care & IV abx; hx recent hospitalization for pneumonia, CHF, ESRD on HD, mitral valve prolapse s/p replacement; per H&P & order 12/24/17
[2017-12-24] MEDS ORDERED: OXYCODONE/APAP 5/325 TAB PO PRN (09:56)
--- NOTE | 2017-12-24 09:58 | HOSPPROG ---
Hospitalist Progress Note Assessment/Plan: #Fever: 38.2 in ER. Concern for recurrent PNA with parapneumonic effusion. Add procalcitonin. Thoracentesis #Acute hypoxic resp failure: volume overload vs infection. Plan as above #Sepsis: with fever, leukocytosis and PNA. Cont IV Vanc, cefepime with recent hospitalization. Appreciated ID consult #ESRD: last HD yesterday. Plan for repeat tomorrow. K stable #Anemia of chronic disease: H/H at baseline; no need for transfusion now #Tachycardia: now resolved #Indeterminate troponin: due to ESRD, acute illness. No CP Subjective: still feels SOB. No f/c/s. Coughing some green sputum that is unchanged since discharge Objective: Vital Signs Temp Pulse Resp BP Pulse Ox 36.8 C 100 14 136/76 H 94 12/24/17 09:32 12/24/17 05:32 12/24/17 05:32 12/24/17 05:32 12/24/17 05:32 PT 14.7 SEC (12.0-15.0) 12/24/17 02:45 INR 1.13 (0.83-1.16) 12/24/17 02:45 - Physical Exam Constitutional: other (fatigued) Eyes: PERRL Ears, Nose, Mouth, Throat: moist mucous membranes, hearing normal Cardiovascular: regular rate and rhythym, No edema Respiratory: other (decreased BS right base), No inspiratory crackles Gastrointestinal: normoactive bowel sounds, soft, non-tender abdomen Genitourinary: no bladder fullness Skin: warm Musculoskeletal: full muscle strength, other (LUE fistula with thrill) Neurologic: AAOx3, CN II-XII Intact Psychiatric: interacting appropriately ICD10 Worksheet Patient Problems: Problems Problem Status Onset Dyspnea Acute ESRD on hemodialysis Acute Elevated troponin Acute Fever Acute Headache Acute Hypoxia Acute Pneumonia Acute Postoperative pneumothorax Acute Pulmonary edema Acute S/P mitral valve replacement with bioprosthetic valve Acute Tachycardia Acute Anemia Chronic CHF (congestive heart failure) Chronic ESRD (end stage renal disease) Chronic Hypertensive urgency Chronic Severe mitral regurgitation Chronic
[2017-12-24] MEDS ORDERED: PIPERACILLIN/TAZO 3.375 GM/DEX 50 ML IV SCH (10:00)
[2017-12-24] MEDS: ASPIRIN 81 MG CHEWABLE TAB PO SCH (10:38)
[2017-12-24] MEDS: CARVEDILOL 25 MG TAB PO SCH ×2 (10:38→17:30)
[2017-12-24] MEDS: SEVELAMER HCL 800 MG TAB PO SCH ×2 (13:25→17:29)
--- NOTE | 2017-12-24 13:41 | PDCONSULT ---
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 The patient was hospitalized very recently for PNA and treated with levaquin then sent home on oxygen therapy. He has been compliant with his dialysis and had 4L UF yesterday at [facility] [place], however continues to have a cough and trouble breathing despite challenging his dry weight. Currently stable on the floor. PMH: ESRD, solityary kidney, HTN, hyperparathyroidism, anemia, MVP PSH: LUE AVF, bioprosthetic MVR, cholecystetomy Allergies: NKDA Family Hx: Non-contributory. Social Hx: Marijuana use. Lives in [place]. Medications: List reviewed. ROS: Negative except as per HPI. Objective: Temp Pulse Resp BP Pulse Ox 36.8 C 94 14 118/61 94 12/24/17 09:32 12/24/17 10:38 12/24/17 05:32 12/24/17 10:40 12/24/17 05:32 O2 (L/minute) 2 Physical Exam: Gen: NAD, A+Ox3, pale HEENT: Non-traumatic, MMM Neck: Supple, no thyromegaly CV: RRR, murmur LLSB Abdomen: Soft, NT, ND Ext: Trace edema L AVF Imaging: CT results reviewed. A/P: The patient is a 27 y/o M with a known h/o ESRD on HD MWF who presents with PNA and volume overload. ESRD on HD -MWF with Dr. Rawls of [facility] -will do a PUF today and dialyze tomorrow Multifocal L PNA -currently on cefepime and vancomycin, renally dosed -will need repeat scan in 6-8 weeks -continue O2 therapy, currently 2L NC HTN/vol: -at goal, continue amlodipine and lasix -UF as above Anemia -Hb 7.9 -will give EPO with HD BMD -on sevelamer -renal diet MVP with valve replacement -not on anticoagulation -continue BB Consult appreciated, will continue to follow. Please contact [phone] if any questions.
[2017-12-24] MEDS ORDERED: LIDOCAINE 1% 300 MG/30 ML SDV ONE (13:51)
[2017-12-24] MEDS ORDERED: EPOETIN ALFA 10,000 UNIT/ML VIAL SC ONE (14:00)
--- NOTE | 2017-12-24 15:39 | PCMIDPN ---
Assessment/Plan: # Multifocal infiltrates, hypoxia normal wbc. Low grade temp. Reviewed CT scan some signs of infection and some evidence of possible volume overload but also could be attributable to infection. Patient is at his dry weight and by report there were trying to take off more fluid at dialysis recently. Noted recent normal EF although SBP is have been fairly elevated --dc vancomycin as MRSA unlikely --continue cefepime while sort out if due to volume or infection, dose adjusted to give after HD, already had cefepime 1g today therefore we will give 1 g tomorrow then increase to 2 g after dialysis. Patient just completed course of FQ therefore atypical PNA seems unlikely --will await final pleural fluid studies, current preliminary studies suggest a fairly bland fluid collection Medications, Abx #1 Vancomycin 1 g IV Q 48 Cefepime 1 g IV daily micro 12/24 blood cx (2): Pending 12/18 blood cultures (2): Negative Subjective: 27-year-old male with a history of end-stage renal disease known to me previously for Streptococcus Midas mitral valve prosthetic endocarditis treated with vancomycin due to convenience of administration at hemodialysis through . Patient was originally admitted on 12/18/2017 for shortness of breath and right lower lobe pneumonia. Patient was not given empiric therapy with levofloxacin and felt symptomatic improvement. He has completed the course of that antibiotics. The day prior to admission patient had woke up with sudden onset shortness of breath that improved with sitting upright. Poor p.o. Intake. Mild cough nonproductive. He did not notice a fever at home. A low- grade fever here was noted 38.2 at triage at [facility]. Patient felt significantly less shortness of breath after thoracentesis. Patient expresses a desire to leave as soon as possible Patient had a recent echo 12/13/17 showed nl EF @ 67% no veg on bioprosthetic MV and trivial to mild MR, Mod TR. PCT remains mildly elevated at 1.29 (no change from prior hospitalization) SocHx: no travel, lives w his parents, 2 dogs, no fountains, no swamp cooler, no contact w animals Objective: Vital Signs Temp Pulse Resp BP Pulse Ox 36.7 C 81 15 121/61 H 94 12/24/17 14:07 12/24/17 14:07 12/24/17 14:12/24/17 14:07 12/24/17 14:07 12/23/17 12/24/17 12/25/17 05:59 05:59 05:59 Output Total 1010 Balance -1010 12/24/17 12/24/17 02:45 10:54 Total Bilirubin 1.2 Conjugated Bilirubin 0.8 H AST 29 ALT 33 Alkaline Phosphatase 143 H Procalcitonin 1.29 H 12/24/17 03:20 Pleural Color ORANGE H Pleural Appearance CLOUDY H Pleural pH 7.4 Pleural Neutrophils 75 Pleural Eosinophils 17 H Pleural Lymphocytes % 6 Pleural LDH 489 Pleural Glucose 88 12/24/17 02:45 WBC 6.45 Hgb 7.9 L Hct 23.3 L Plt Count 251 Neut % (Auto) 71.6 Lymph % (Auto) 17.1 Crowley % (Auto) 7.0 - Physical Exam General Appearance: alert, no apparent distress, thin EENT: pale conjunctiva, other (fair dentition), No thrush Respiratory: crackles (R mid and lower lung ), No accessory muscle use Cardiac/Chest: regular rate, rhythm, systolic murmur Extremities: No pedal edema Abdomen: normal bowel sounds, non-tender, soft Male Genitalia: No heller Skin: pallor, No rash Neuro/Psych: alert, normal mood/affect, oriented x 3 - Time Spent With Patient Time Spent with Patient: greater than 35 minutes Time Spent with Patient: Greater than 35 minutes spent on this patients care, greater than 50% of time spent counseling, educating, and coordinating care regarding the above mentioned plan. ICD10 Worksheet Patient Problems: Problems Problem Status Onset Fever Acute Hypoxia Acute Pneumonia Acute Pulmonary edema Acute Tachycardia Acute Dyspnea Acute ESRD on hemodialysis Acute Elevated troponin Acute Headache Acute Postoperative pneumothorax Acute S/P mitral valve replacement with bioprosthetic valve Acute Anemia Chronic CHF (congestive heart failure) Chronic ESRD (end stage renal disease) Chronic Hypertensive urgency Chronic Severe mitral regurgitation Chronic
[2017-12-24] MEDS ORDERED: VANCOMYCIN HCL/NORMAL SALINE 250 ML IV SCH (16:00)
[2017-12-24] MEDS ORDERED: CEFEPIME HCL 1 GM in STERILE WATER INJ 11.3 ML IV SCH (17:00)
--- NOTE | 2017-12-24 17:15 | ASMTCMCOM ---
CM Note CM Note Notes: 27yr old male admitted for SOB, PNA, Hypoxia, Pulm Edema. He has a Hx of 1 kidney which is failing, gets dialysis 3x/wk, has had a MVR, CHF, an ex-smoker, uses THC. Patient was at [facility] last week with PNA. Lives with his mother. CM to follow, patient may not have discharge needs. Date Signed: 12/24/2017 11:32 AM Electronically Signed By:Meli Sheehan LCSW
[2017-12-24] MEDS: MINOXIDIL 10 MG TAB PO SCH (17:30)
[2017-12-24] MEDS: FUROSEMIDE 80 MG TAB PO SCH (17:32)
[2017-12-24] MEDS: GABAPENTIN 100 MG CAP PO SCH (22:58)
[2017-12-24] MEDS: oxyCODONE IR 5 MG TAB PO PRN (22:59)
[2017-12-24] MEDS: DIAZEPAM 5 MG TAB PO PRN (23:04)
[2017-12-25] MEDS ORDERED: LORazepam 0.5 MG TAB PO PRN (00:14)
[2017-12-25] MEDS: HYDROmorphONE/DILAUDID 1 MG/ML INJ IVP PRN ×4 (00:26→15:52)
[2017-12-25] MEDS: OXYCODONE/APAP 5/325 TAB PO PRN (04:06)
[2017-12-25] MEDS: guaiFENesin/CODEINE PHOS 10 ML UDCUP PO PRN ×2 (04:06→19:26)
[2017-12-25] MEDS: DIAZEPAM 5 MG TAB PO PRN ×3 (07:27→20:28)
[2017-12-25] MEDS: MINOXIDIL 10 MG TAB PO SCH ×2 (09:09→18:04)
[2017-12-25] MEDS: CARVEDILOL 25 MG TAB PO SCH ×2 (09:09→18:03)
[2017-12-25] MEDS: SEVELAMER HCL 800 MG TAB PO SCH ×3 (09:09→18:03)
[2017-12-25] MEDS: FUROSEMIDE 80 MG TAB PO SCH ×2 (09:10→18:04)
[2017-12-25] MEDS: ASPIRIN 81 MG CHEWABLE TAB PO SCH (09:10)
[2017-12-25] MEDS ORDERED: oxyCODONE IR 5 MG TAB PO PRN ×2 (10:52→16:28)
[2017-12-25] MEDS: oxyCODONE IR 5 MG TAB PO PRN (11:35)
--- NOTE | 2017-12-25 12:03 | HOSPPROG ---
Hospitalist Progress Note Assessment/Plan: #Fever: 38.2 in ER. Cultures remain negative. Repeat CXR show persistent opacities despite HD. Continue IV Cefepime, renally-dosed #Acute hypoxic resp failure: resolved. Volume overload vs infection. #Sepsis: resolved. Pleural studies not c/w empyema. h/o MVR in Jul, bacteremia in Sep. Blood cultures negative here -cont IV Cefepime #ESRD: HD done today #Anemia of chronic disease: H/H at baseline; no need for transfusion now #Tachycardia: now resolved #Indeterminate troponin: due to ESRD, acute illness. No CP #h/o prior bioprosthetic MV endocarditis: cultures negative here #Migraines: related to HD, cont home meds #Diet: renal #Disp: cont inpatient admission for IV abx Subjective: SOB much improved. c/o migraine associated with HD Objective: Vital Signs Temp Pulse Resp BP Pulse Ox 36.6 C 94 18 122/78 H 100 12/25/17 07:47 12/25/17 09:09 12/24/17 23:05 12/25/17 09:10 12/25/17 07:47 Microbiology 12/24/17 19:15 - Final Sputum, Expectorated Laboratory Results 12/25/17 10:45 12/25/17 10:45 12/24/17 12/25/17 12/26/17 05:59 05:59 05:59 Intake Total 1100 Output Total 2009 Balance -910 PT 14.7 SEC (12.0-15.0) 12/24/17 02:45 INR 1.13 (0.83-1.16) 12/24/17 02:45 - Time Spent With Patient Time Spent with Patient: greater than 35 minutes Time Spent with Patient: Greater than 35 minutes spent on this patients care, greater than 50% of time spent counseling, educating, and coordinating care regarding the above mentioned plan. - Physical Exam Constitutional: no apparent distress Eyes: PERRL Ears, Nose, Mouth, Throat: moist mucous membranes, hearing normal Cardiovascular: regular rate and rhythym, No edema Respiratory: other (dereased BS right base) Gastrointestinal: normoactive bowel sounds, soft, non-tender abdomen Genitourinary: no bladder fullness Skin: warm Musculoskeletal: other (LUE fistula with thrill) Neurologic: AAOx3, CN II-XII Intact Psychiatric: interacting appropriately ICD10 Worksheet Patient Problems: Problems Problem Status Onset Fever Acute Hypoxia Acute Pneumonia Acute Pulmonary edema Acute Tachycardia Acute Dyspnea Acute ESRD on hemodialysis Acute Elevated troponin Acute Headache Acute Postoperative pneumothorax Acute S/P mitral valve replacement with bioprosthetic valve Acute Anemia Chronic CHF (congestive heart failure) Chronic ESRD (end stage renal disease) Chronic Hypertensive urgency Chronic Severe mitral regurgitation Chronic
--- NOTE | 2017-12-25 13:28 | PCMIDPN ---
Assessment/Plan: Assessment/Plan: * Multifocal pulmonary infiltrates with low-grade temperature and history of rigors with prior history of prosthetic valve endocarditis: Unclear pulmonary infiltrates represent pneumonia versus fluid overload. Given presence of rigors , think should continue on empiric therapy until blood cultures remain negative for 48 hr. Will repeat chest x-ray post dialysis is this may help further define clinical findings as would expect volume overload to show improvement post dialysis. Continue cefepime dosed after dialysis in interim while blood cultures are pending. Clinical findings and plan were discussed with patient today. 12/25/17 13:25 Subjective: Patient wants to go home. No further rigors. Does not feel short of breath. Notes some coughing. Objective: Vital Signs Temp Pulse Resp BP Pulse Ox 36.6 C 94 18 122/78 H 100 12/25/17 07:47 12/25/17 09:09 12/24/17 23:05 12/25/17 09:10 12/25/17 07:47 Microbiology 12/24/17 19:15 - Final Sputum, Expectorated Laboratory Results 12/25/17 10:45 12/25/17 10:45 12/24/17 12/25/17 12/26/17 05:59 05:59 05:59 Intake Total 1100 Output Total 2010 Balance -910 Blood cultures x2 no growth to date CT of chest with bilateral pulmonary infiltrates which are asymmetric left greater than right Laboratory Tests 12/24/17 10:54 Procalcitonin 1.29 H - Physical Exam General Appearance: alert, no apparent distress EENT: No scleral icterus, No thrush, No conjunctival petechiae Respiratory: lungs clear, No respiratory distress Cardiac/Chest: regular rate, rhythm, systolic murmur (2/6 left and right upper sternal border) Abdomen: non-tender, No distended Skin: No embolic lesions ICD10 Worksheet Patient Problems: Problems Problem Status Onset Fever Acute Hypoxia Acute Pneumonia Acute Pulmonary edema Acute Tachycardia Acute Dyspnea Acute ESRD on hemodialysis Acute Elevated troponin Acute Headache Acute Postoperative pneumothorax Acute S/P mitral valve replacement with bioprosthetic valve Acute Anemia Chronic CHF (congestive heart failure) Chronic ESRD (end stage renal disease) Chronic Hypertensive urgency Chronic Severe mitral regurgitation Chronic
--- NOTE | 2017-12-25 17:33 | SOAPPROG ---
SOAP Progress Note Assessment/Plan: Assessment: 1. esrd: dialyzed today on typical mwf schedule. Did not tolerate much uf today therefore would not attempt add'l UF treatment tomorrow. 2. hypoxemia/pulm infiltrates: Had total of 3.3L uf over 2 treatments in past 24hrs. O2 req seem to have decreased but also had therapeutic tap. I do not think add'l volume can be removed via hd at this time. On abx for possible infectious etiologies. Plan: 12/25/17 17:30 Subjective: Only tolerated 1.3L uf on hd today due to hypotension. Had add'l 2L removed during yesterdays treatment without issue. Currently without c/o, denies sob off O2. Objective: Vital Signs Temp Pulse Resp BP Pulse Ox 36.7 C 95 20 115/70 99 12/25/17 16:00 12/25/17 16:00 12/25/17 14:29 12/25/17 16:00 12/25/17 16:00 Microbiology 12/24/17 19:15 - Final Sputum, Expectorated Laboratory Results 12/25/17 10:45 12/25/17 10:45 12/24/17 12/25/17 12/26/17 05:59 05:59 05:59 Intake Total 1100 Output Total 2009 Balance -910 PT 14.7 SEC (12.0-15.0) 12/24/17 02:45 INR 1.13 (0.83-1.16) 12/24/17 02:45 Physical Exam - Physical Exam General Appearance: no apparent distress Respiratory: lungs clear (except few crackles R base) Cardiac/Chest: regular rate, rhythm Extremities: pedal edema (none), other (+patent L forearm avf) ICD10 Worksheet Patient Problems: Problems Problem Status Onset Fever Acute Hypoxia Acute Pneumonia Acute Pulmonary edema Acute Tachycardia Acute Dyspnea Acute ESRD on hemodialysis Acute Elevated troponin Acute Headache Acute Postoperative pneumothorax Acute S/P mitral valve replacement with bioprosthetic valve Acute Anemia Chronic CHF (congestive heart failure) Chronic ESRD (end stage renal disease) Chronic Hypertensive urgency Chronic Severe mitral regurgitation Chronic
[2017-12-25] MEDS: GABAPENTIN 100 MG CAP PO SCH (20:29)
[2017-12-25] MEDS ORDERED: ZOLPIDEM TARTRATE 5 MG TAB PO PRN (21:05)
[2017-12-26] MEDS: guaiFENesin/CODEINE PHOS 10 ML UDCUP PO PRN (01:21)
[2017-12-26] MEDS: oxyCODONE IR 5 MG TAB PO PRN ×3 (01:22→09:59)
[2017-12-26] MEDS: DIAZEPAM 5 MG TAB PO PRN ×2 (02:25→08:41)
[2017-12-26] MEDS: SEVELAMER HCL 800 MG TAB PO SCH ×3 (08:10→11:02)
[2017-12-26] MEDS: FUROSEMIDE 80 MG TAB PO SCH (08:10)
[2017-12-26] MEDS: ASPIRIN 81 MG CHEWABLE TAB PO SCH (08:10)
[2017-12-26] MEDS: MINOXIDIL 10 MG TAB PO SCH (08:10)
[2017-12-26] MEDS: CARVEDILOL 25 MG TAB PO SCH (08:10)
--- NOTE | 2017-12-26 09:42 | SOAPPROG ---
SOAP Progress Note Assessment/Plan: Assessment/Plan: ESRD: on HD MWF, last dialyzed yesterday. - Next HD tomorrow, can be done as outpatient if discharged. Anemia: Hgb down to 6.7, getting 1 unit PRBCs today. Pt will continue to get iron and epo per outpatient dialysis unit protocol. HTN: controlled on current meds. NADIA: Phos 4.8, continue phos binder. Subjective: No acute events overnight. Pt states he is feeling better, wants to go home. His breathing is fine, he does feel a little lightheaded. Hd done yesterday with no issues. Objective: Vital Signs Temp Pulse Resp BP Pulse Ox 36.8 C 17 L 13 121/56 H 97 12/26/17 07:18 12/26/17 07:18 12/26/17 07:18 12/26/17 07:18 12/26/17 07:18 Microbiology 12/24/17 19:15 - Final Sputum, Expectorated Laboratory Results 12/26/17 05:30 12/26/17 05:30 12/25/17 12/26/17 12/27/17 05:59 05:59 05:59 Intake Total 1100 800 Output Total 2009 Balance -910 800 PT 14.7 SEC (12.0-15.0) 12/24/17 02:45 INR 1.13 (0.83-1.16) 12/24/17 02:45 General: alert and oriented, no acute distress Eyes: EOMI, PERRL OP: Clear CV: RRR Resp: nonlabored respirations Abd: Soft, NT/ND Ext: no edema BLE neuro: CN II-XII grossly intact, no asterixis Psych: cooperative ICD10 Worksheet Patient Problems: Problems Problem Status Onset Fever Acute Hypoxia Acute Pneumonia Acute Pulmonary edema Acute Tachycardia Acute Dyspnea Acute ESRD on hemodialysis Acute Elevated troponin Acute Headache Acute Postoperative pneumothorax Acute S/P mitral valve replacement with bioprosthetic valve Acute Anemia Chronic CHF (congestive heart failure) Chronic ESRD (end stage renal disease) Chronic Hypertensive urgency Chronic Severe mitral regurgitation Chronic
[2017-12-26 11:01] VITALS: BP 122/61
--- NOTE | 2017-12-26 14:43 | GDS ---
[f rep st] DISCHARGE SUMMARY DISCHARGE DIAGNOSES: 1. Acute hypoxic respiratory failure. 2. Dyspnea. 3. End-stage renal disease on hemodialysis Saturday, Saturday, Saturday. 4. Sepsis. 5. Anemia of chronic disease. 6. Tachycardia. 7. Indeterminate troponin. 8. History of bioprosthetic mitral valve repair 9. h/o MV endocarditis. 9. Migraines. 10. Systolic heart failure. HISTORY OF PRESENT ILLNESS: A pleasant 27-year-old male with history of end- stage renal disease due to solitary kidney on dialysis, who was hospitalized last week for right-sided pneumonia. He was discharged on Levaquin. He completed the course of antibiotics, but developed worsening cough and increased production of green sputum. He became very short of breath prior to admission. He was discharged home with oxygen to wear at night, but he found that he was needing this intermittently during the day to improve his symptoms. He has been compliant with his hemodialysis. HOSPITAL COURSE BY PROBLEM: 1. Acute hypoxic respiratory failure: Question whether due to recurrent pneumonia versus volume overload. He has had a right-sided effusion as well as bilateral patchy infiltrates on CT. His symptoms resolved after dialysis and a thoracentesis. Studies were not consistent with empyema, and cultures have remained negative. He is now stable on room air. The patient was previously treated with Levaquin at 250 mg every other day. So may have been under treated. Given that he had recent endocarditis, will be more conservative and treat for 5 more days of Levaquin at 500 mg every other day. I discussed this with Infectious Disease and they agreed. 2. End-stage renal disease: He received dialysis and had at least 3 L removed with improved symptoms. 3. Anemia of renal disease. H and H were low at day of discharge so was transfused a unit of blood. 4. End-stage renal disease. Follow up with his normal dialysis tomorrow. 5. Migraines. These are associated with his dialysis. Resume home meds. 6. History of heart failure. Echocardiogram in August 2017 shows normal LVF with a bioprosthetic mitral valve. Resume Coreg and Lasix. 7. Hypertension. Continue Norvasc and Coreg. 8. Sepsis: Initially had a fever to 38.2. Blood cultures remained negative, but given recent pneumonia, I have decided to continue the treatment of Levaquin as stated above. 9. Indeterminate troponin. This is due to end-stage renal disease, acute illness. Denies any chest pain. He had an echocardiogram September 08 without any wall motion abnormality, normal LVEF. 10. History of bioprosthetic mitral valve endocarditis: treated with antibiotics through October 2017. Cultures have remained negative here. DISPOSITION: Patient is stable for discharge home. MEDICATIONS: 1. Levaquin 500 mg q.2 days for 3 more doses. 2. Refill for minoxidil 10 mg b.i.d. 3. Valium 5 mg for only 5 tabs. FOLLOWUP: Dr. Rawls with Nephrology for Saturday, Saturday, Saturday HD. PHYSICAL EXAMINATION: VITAL SIGNS: Today, temperature 36.9, blood pressure 122 /61, heart rate 100, respirations 18, 96% on room air. GENERAL: Thin male, lying in bed in no acute distress. HEENT: PERRLA. EOMI. Oropharynx clear. CV: Regular rate and rhythm. No lower extremity edema. LUNGS: Mildly diminished at the right bases, much improved aeration. GI: Soft, nontender, nondistended. Positive bowel sounds. : No [place]. MUSCULOSKELETAL: Fistula with good thrill. NEURO: 2-12 intact. PSYCH: Alert and oriented x3. Time spent on DC > 35 min coordinating discharge, FU for patient. Case d/w Renal. /[id number]/MODL MTDD
[2017-12-27] MEDS ORDERED: CEFEPIME HCL 2 GM in STERILE WATER INJ 12.5 ML IV SCH (17:00)
== END 2017-12-26 12:45 | disposition home or self-care (01) | DRG 871 ==
LOC: UNDOADMOB 03:55 → OBSVTOIN 03:55 → INTOOBSV 03:55 → F2N 05:12
PROVIDERS: ADMIT Family Medicine; ATTEND Family Medicine
PROC: 5A1D70Z Performance of Urinary Filtration, Intermittent, Less than 6 Hours Per Day (ICD-10-PCS; principal; 2017-12-24)
PROC: 0W993ZX Drainage of Right Pleural Cavity, Percutaneous Approach, Diagnostic (ICD-10-PCS; 2017-12-24)
DX: A41.9 Sepsis, unspecified organism (principal); J18.9 Pneumonia, unspecified organism; J96.01 Acute respiratory failure with hypoxia; N18.6 End stage renal disease; I13.2 Hypertensive heart and chronic kidney disease with heart failure and with stage 5 chronic kidney disease, or end stage renal disease; Q60.0 Renal agenesis, unilateral; I50.20 Unspecified systolic (congestive) heart failure; E86.9 Volume depletion, unspecified; D63.1 Anemia in chronic kidney disease; R00.0 Tachycardia, unspecified; G43.909 Migraine, unspecified, not intractable, without status migrainosus; Z99.2 Dependence on renal dialysis; Z95.3 Presence of xenogenic heart valve; Z87.891 Personal history of nicotine dependence
CPT/HCPCS: 96365; J0692; J0885; J1170; J1940; J1956; J2405; J2543; J3370; P9016

== ENCOUNTER 2017-12-31 13:23 | Inpatient (IN) | payer OTHER, MEDICAID ==
--- NOTE | 2017-12-31 13:32 | EDPHY ---
H & P Stated Complaint: sob Time Seen by Provider: 12/31/17 13:32 HPI/ROS: CHIEF COMPLAINT: [ ] HISTORY OF PRESENT ILLNESS: [Need 4: Location, Duration, Severity, Quality, Context, Timing Modifying Factors, Associated S&S] REVIEW OF SYSTEMS: A comprehensive 10 point review of systems is otherwise negative aside from elements mentioned in the history of present illness. Source: Patient Exam Limitations: No limitations - Personal History Current Tetanus/Diphtheria Vaccine: Yes Current Tetanus Diphtheria and Acellular Pertussis (TDAP): Yes - Medical/Surgical History Hx Asthma: No Hx Chronic Respiratory Disease: No Hx Diabetes: No Hx Cardiac Disease: Yes Hx Renal Disease: Yes Hx Cirrhosis: No Hx Alcoholism: No Hx HIV/AIDS: No Hx Splenectomy or Spleen Trauma: No Other PMH: PMHx: congenital lack of R kidney, failing L kidney dialysis, HTN, dental caries, chf, mitral valve prolapse w/replacement 07/2017, PNA. PSHx: chani - Social History Smoking Status: Former smoker - Physical Exam Exam: General Appearance: [Alert, no distress] Eyes: [Pupils equal and round no pallor or injection] ENT, Mouth: [Mucous membranes moist] Respiratory: [There are no retractions, lungs are clear to auscultation] Cardiovascular: [Regular rate and rhythm] Gastrointestinal: [Abdomen is soft and nontender, no masses, bowel sounds normal] Neurological: [A&O, normal motor function, normal sensory exam, normal cranial nerves] Skin: [Warm and dry, no rashes] Musculoskeletal: [Neck is supple nontender] Extremities: [symmetrical, full range of motion] Psychiatric: [Patient is oriented X 3, there is no agitation] Constitutional: Initial Vital Signs Temperature (C) 37.4 C 12/31/17 13:28 Heart Rate 112 H 12/31/17 13:28 Respiratory Rate 24 H 12/31/17 13:28 Blood Pressure 142/92 H 12/31/17 13:28 O2 Sat (%) 84 L 12/31/17 13:28 O2 Delivery Mode Room Air Allergies/Adverse Reactions: No Known Allergies Allergy (Verified 12/31/17 13:26) Home Medications: Medication Instructions Recorded Carvedilol [Coreg (*)] 25 mg PO BIDMEAL #60 tab 06/30/17 amLODIPine BESYLATE [Norvasc 10 mg 10 mg PO DAILY #30 tab 06/30/17 (*)] Aspirin [Aspirin 81mg (*)] 81 mg PO DAILY tab.chew 08/10/17 Epoetin Kirit [Procrit 60210 10,000 unit SC MOWEFR PRN 09/09/17 UNIT/ML (*)] Sevelamer Carbonate [Renvela] 2,400 mg PO TIDMEAL 09/09/17 Gabapentin [Neurontin 100 MG (*)] 100 mg PO HS 12/19/17 oxyCODONE HCL/ACETAMINOPHEN 1 each PO MWF PRN 12/19/17 [Percocet 10-325 mg Tablet] Diazepam [Valium 5 MG (*)] 5 mg PO Q6HRS PRN #5 tab 12/26/17 Minoxidil [Minoxidil 10 mg (*)] 10 mg PO BIDMEAL #60 tab 12/26/17
--- NOTE | 2017-12-31 13:33 | EDPHY ---
H & P Stated Complaint: sob - Personal History Current Tetanus/Diphtheria Vaccine: Yes Current Tetanus Diphtheria and Acellular Pertussis (TDAP): Yes - Medical/Surgical History Hx Asthma: No Hx Chronic Respiratory Disease: No Hx Diabetes: No Hx Cardiac Disease: Yes Hx Renal Disease: Yes Hx Cirrhosis: No Hx Alcoholism: No Hx HIV/AIDS: No Hx Splenectomy or Spleen Trauma: No Other PMH: PMHx: congenital lack of R kidney, failing L kidney dialysis, HTN, dental caries, chf, mitral valve prolapse w/replacement 07/2017, PNA. PSHx: chani - Social History Smoking Status: Former smoker Time Seen by Provider: 12/31/17 13:32 Constitutional: Initial Vital Signs Temperature (C) 37.4 C 12/31/17 13:28 Heart Rate 112 H 12/31/17 13:28 Respiratory Rate 24 H 12/31/17 13:28 Blood Pressure 142/92 H 12/31/17 13:28 O2 Sat (%) 84 L 12/31/17 13:28 O2 Delivery Mode Nasal Cannula O2 (L/minute) 2 Allergies/Adverse Reactions: No Known Allergies Allergy (Verified 12/31/17 13:26) Home Medications: Medication Instructions Recorded Carvedilol [Coreg (*)] 25 mg PO BIDMEAL #60 tab 06/30/17 amLODIPine BESYLATE [Norvasc 10 mg 10 mg PO DAILY #30 tab 06/30/17 (*)] Aspirin [Aspirin 81mg (*)] 81 mg PO DAILY tab.chew 08/10/17 Epoetin Kirit [Procrit 38173 10,000 unit SC MOWEFR PRN 09/09/17 UNIT/ML (*)] Sevelamer Carbonate [Renvela] 2,400 mg PO TIDMEAL 09/09/17 Gabapentin [Neurontin 100 MG (*)] 100 mg PO HS 12/19/17 oxyCODONE HCL/ACETAMINOPHEN 1 each PO MWF PRN 12/19/17 [Percocet 10-325 mg Tablet] Minoxidil [Minoxidil 10 mg (*)] 10 mg PO BIDMEAL #60 tab 12/26/17 Albuterol [Proventil Inhaler] 1 - 2 puffs IH Q4 #1 mdi 12/31/17 Diazepam [Valium 5 MG (*)] 5 mg PO Q6 PRN 12/31/17 predniSONE 40 mg PO DAILY #10 tab 12/31/17 Medical Decision Making - Diagnostics EKG Interpretation: The ED EKG sinus tachycardia, rate 116 (Caleb Burnett) Imaging Results: Imaging Impressions Chest X-Ray 12/31/17 13:39 Impression: 1. Acute congestive heart failure or circulating hypervolemia. 2. Stable small right pleural effusion.. Chest/Thorax CTA 12/31/17 14:17 Impression: 1. No evidence of pulmonary embolus using CT protocol. 2. Interval increase in alveolar infiltrates bilaterally suggestive of pulmonary edema/CHF. Rule out pneumonia. 3. Mild to moderate right pleural effusion slightly decreased since the prior study. 4. Splenomegaly suspected. Findings discussed with Caleb Burnett M.D. at 15:59 hour, 12/31/2017. ED Course/Re-evaluation: CHIEF COMPLAINT: Shortness of breath HISTORY OF PRESENT ILLNESS: The patient is a 27 y/o male with a history of end-stage renal disease and a mitral valve repair complaining of worsening shortness of breath onset last week. He was admitted to this hospital on 12/24/17 and placed on Levaquin. 2 days after discharge his shortness of breath and cough returned. These symptoms are exacerbated while walking. Last chest x-ray was 12/25/17 during his admission. He believes he is currently at his dry weight. Denies headache, chest pain, abdominal pain, urinary or bowel complaints, numbness, paresthesias , fever. REVIEW OF SYSTEMS: A 10 point review of systems was performed and is negative with the exception of the elements mentioned in the history of present illness. PHYSICAL EXAM: HR, BP, O2 Sat, RR. Temp noted General Appearance: Alert, well hydrated, appropriate, and non-toxic appearing. Head: Atraumatic without scalp tenderness or obvious injury Eyes: Pupils equal, round, reactive to light and accommodation, EOMI, no trauma , no injection. Ears: Clear bilaterally, no perforation, normal landmarks Nose: Atraumatic, no rhinorrhea, clear. Throat: There is no erythema or exudates, no lesions, normal tonsils, mucus membranes moist. Neck: Supple, nontender, no lymphadenopathy. Respiratory: Bilateral coarse rhonchi throughout all morrison. No retractions, no distress, no wheezes, and no accessory muscle use. Cardiovascular: Regular rate and rhythm, no murmurs, rubs, or gallops. Bilateral carotid, radial, dorsalis pedis, and posterior tibial pulses intact. Good capillary refill all extremities. Gastrointestinal: Abdomen is soft, nontender, non-distended, no masses, no rebound, no guarding, no peritoneal signs. Musculoskeletal: Normal active ROM of all extremities, atraumatic. Neurological: Alert, appropriate, and interactive. The patient has normal DTRs and non-focal cranial nerves, motor, sensory, and cerebellar exam. Skin: No rashes, good turgor, no nodules on palpation. Past Medical History: End-stage renal disease on hemodialysis Saturday/Saturday/ Saturday, hypertension, Past Surgical History: Mitral valve, and gallbladder, left arm AV fistula Social History: Smokes marijuana denies other alcohol or illicit drugs. Family History: Noncontributory [facility] [place]. DIAGNOSTICS/PROCEDURES/CRITICAL CARE TIME: Chest x-ray: DIFFERENTIAL DIAGNOSIS: The differential diagnosis for the patient's shortness of breath and hypoxemia included but was not limited to pneumonia, myocardial infarction, acute mountain sickness, high altitude pulmonary edema, congestive heart failure, and pulmonary embolus. MEDICAL DECISION MAKING: The patient is a 27 y/o male with a history of end-stage renal disease and a mitral valve repair presenting with worsening shortness of breath. On exam he has bilateral coarse rhonchi throughout all morrison. Chest x-ray and labs ordered. DuoNeb administered. 1400: Patient care turned over to Dr. Burnett at shift change. Imaging still pending. (Lawrence Muro) Other Provider: I assumed care of the patient at 2:00 p.m. and evaluated him personally. The patient presents complaining of dyspnea and pleuritic chest pain. He has had multiple hospitalizations over the past month for respiratory symptoms which have been felt to be secondary to an infectious process. The patient was treated with antibiotics however is continued to have ongoing respiratory symptoms despite treatment. As I evaluate the patient he reports he has had no recent weight gain. He states that it hurts to breathe. The patient is also noted to be acutely hypoxemic with a O2 sat of 84% on room air. The patient tells me he does not take oxygen chronically. The patient did undergo CT pulmonary angiogram which demonstrates evidence of heart failure. There is no evidence of pulmonary embolism. The patient received Tylenol for a headache. In the setting of the patient's tachycardia, hypoxemia and heart failure which he will be admitted to the hospitalist. I discussed the case with Dr. Ni who will admit the patient. Dr. Malloy from nephrology has been notified of the patient's admission to the hospital. (Caleb Burnett) - Data Points Laboratory Results: Laboratory Results 12/31/17 14:32 12/31/17 14:32 12/31/17 12/31/17 14:32 14:32 WBC 8.67 10^3/uL 10^3/uL (3.80-9.50) RBC 2.68 10^6/uL L 10^6/uL (4.40-6.38) Hgb 7.4 g/dL L g/dL (13.7-17.5) Hct 22.2 % L % (40.0-51.0) MCV 82.8 fL fL (81.5-99.8) MCH 27.6 pg L pg (27.9-34.1) MCHC 33.3 g/dL g/dL (32.4-36.7) RDW 13.3 % % (11.5-15.2) Plt Count 236 10^3/uL 10^3/uL (150-400) MPV 9.0 fL fL (8.7-11.7) Neut % (Auto) 80.1 % H % (39.3-74.2) Lymph % (Auto) 12.0 % L % (15.0-45.0) [place] % (Auto) 4.8 % % (4.5-13.0) Eos % (Auto) 1.6 % % (0.6-7.6) Baso % (Auto) 0.6 % % (0.3-1.7) Nucleat RBC Rel Count 0.0 % % (0.0-0.2) Absolute Neuts (auto) 6.94 10^3/uL H 10^3/uL (1.70-6.50) Absolute Lymphs (auto) 1.04 10^3/uL 10^3/uL (1.00-3.00) Absolute Monos (auto) 0.42 10^3/uL 10^3/uL (0.30-0.80) Absolute Eos (auto) 0.14 10^3/uL 10^3/uL (0.03-0.40) Absolute Basos (auto) 0.05 10^3/uL 10^3/uL (0.02-0.10) Absolute Nucleated RBC 0.00 10^3/uL 10^3/uL (0-0.01) Immature Gran % 0.9 % % (0.0-1.1) Immature Gran # 0.08 10^3/uL 10^3/uL (0.00-0.10) Sodium 141 mEq/L mEq/L (135-145) Potassium 4.8 mEq/L mEq/L (3.3-5.0) Chloride 99 mEq/L mEq/L (97-110) Carbon Dioxide 25 mEq/l mEq/l (22-31) Anion Gap 17 mEq/L H mEq/L (8-16) BUN 34 mg/dL H mg/dL (7-23) Creatinine 8.1 mg/dL H* mg/dL (0.7-1.3) Estimated GFR 8 Glucose 83 mg/dL mg/dL (70-100) Calcium 9.2 mg/dL mg/dL (8.5-10.4) NT-Pro-B Natriuret Pep 63284 pg/mL H pg/mL (0-125) Medications Given: Discontinued Medications Acetaminophen (Tylenol) 1,000 mg PO EDNOW ONE Stop: 12/31/17 14:38 Last Admin: 12/31/17 14:40 Dose: 1,000 mg Albuterol/Ipratropium (Duoneb) 3 ml IH EDNOW ONE Stop: 12/31/17 13:39 Last Admin: 12/31/17 13:40 Dose: 3 ml Metoclopramide HCl (Reglan Injection) 10 mg IVP EDNOW ONE Stop: 12/31/17 16:19 Last Admin: 12/31/17 16:22 Dose: 10 mg Departure - Departure Disposition: [facility] Acute Clinical Impression: CHF (congestive heart failure), ESRD (end stage renal disease), Hypoxia Condition: Fair Report Scribed for: Lawrence Muro Report Scribed by: Ophelia Weaver Date of Report: 12/31/17 Time of Report: 13:34
[2017-12-31] MEDS ORDERED: IPRATROPIUM/ALBUTEROL 3 ML DEYVIAL ONE (13:37)
[2017-12-31] MEDS ORDERED: IPRATROPIUM/ALBUTEROL 3 ML DEYVIAL IH ONE (13:38)
[2017-12-31] MEDS ORDERED: ACETAMINOPHEN 500 MG TAB PO ONE (14:37)
[2017-12-31] MEDS ORDERED: IOPAMIDOL (ISOVUE 370) 100 ML BTL IV ONE (14:38)
[2017-12-31 14:42] LABS: PLATELET COUNT 236 10^3/uL (150-400)
--- NOTE | 2017-12-31 15:02 | CPEKG ---
Heart Rate: 116 RR Interval: 517 P-R Interval: 140 QRSD Interval: 84 QT Interval: 324 QTC Interval: 451 P [place]: 59 QRS [place]: -7 T Wave [place]: 111 EKG Severity - ABNORMAL ECG - EKG Impression: SINUS TACHYCARDIA EKG Impression: NONSPECIFIC T ABNORMALITIES, LATERAL LEADS Electronically Signed By: Caleb Burnett 31-Dec-2017 17:49:51
[2017-12-31] MEDS ORDERED: METOCLOPRAMIDE 10 MG/2 ML VIAL IVP ONE (16:18)
[2017-12-31] MEDS ORDERED: METOCLOPRAMIDE 10 MG/2 ML VIAL ONE (16:20)
--- NOTE | 2017-12-31 16:45 | PDGENHP ---
History and Physical - Chief Complaint Shortness of breath and headache - History of Present Illness A 27-year-old male with history of end-stage renal disease on hemodialysis Saturday and Saturday due to failing solitary kidney who is admitted to [facility] December 24 through the where he was treated for possible pneumonia versus volume overload. Since leaving [facility] he has finished a course of levofloxacin as prescribed. His last dialysis was on Saturday12/30/2017. He states he is currently at his dry weight. He has not had any fevers or chills. He became short of breath today. Denies any fevers or chills. He does have a cough. He has a headache that started today which is not unusual for him. He typically takes Percocet for his headache which tends to help. He denies any focal numbness or weakness. History Information - Allergies/Home Medication List Allergies/Adverse Reactions: No Known Allergies Allergy (Verified 12/31/17 13:26) Home Medications: Epoetin Kirit [Procrit 51787 UNIT/ML (*)] 10,000 unit SC MOWEFR PRN 09/09/17 [ Last Taken 12/23/17] Sevelamer Carbonate [Renvela] 2,400 mg PO TIDMEAL 09/09/17 [Last Taken 12/23/17 12:00] Gabapentin [Neurontin 100 MG (*)] 100 mg PO HS 12/19/17 [Last Taken 12/23/17] oxyCODONE HCL/ACETAMINOPHEN [Percocet 10-325 mg Tablet] 1 each PO MWF PRN [Last Taken 12/23/17] I have personally reviewed and updated: family history, medical history, social history, surgical history - Past Medical History CHF, ESRD Additional medical history: 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 CHF, history of mitral valve prolapse status post replacement with animal donor valve. Anemia of chronic kidney disease on Procrit - Surgical History Additional surgical history: LUE AVF creation. bioprosthetic MVR. Cholecystectomy - Family History Positive for: non-pertinent Additional family history: No family history of end-stage renal disease - Social History Smoking Status: Former smoker Additional social history: Reports he is currently living with his mother in [place], does not have any transportation beyond the local bus system. Cor status-full Review of Systems Review of Systems: ROS: 10pt was reviewed & negative except for what was stated in HPI & below Physical Exam Physical Exam: Temp Pulse Resp BP Pulse Ox 37.4 C 116 H 18 119/52 L 92 12/31/17 13:28 12/31/17 16:13 12/31/17 16:13 12/31/17 16:13 12/31/17 16:13 O2 (L/minute) 2 Constitutional: no apparent distress, appears nourished, not in pain Eyes: PERRL, anicteric sclera, EOMI Ears, Nose, Mouth, Throat: moist mucous membranes, hearing normal, ears appear normal, no oral mucosal ulcers Cardiovascular: regular rate and rhythym, no murmur, rub, or gallop, No edema Respiratory: no respiratory distress, reduced air movement (Bilateral bases), inspiratory crackles Gastrointestinal: normoactive bowel sounds, soft, non-tender abdomen, no palpable masses Genitourinary: no bladder fullness, no bladder tenderness Skin: warm, normal color, no rashes or abrasions, no fluctuance, no induration, No mottled Musculoskeletal: full muscle strength, no muscle tenderness, normal joint ROM, no joint effusions Neurologic: AAOx3, CN II-XII Intact, No facial droop Psychiatric: interacting appropriately, not anxious, not encephalopathic, thought process linear Lymph, Heme, Immunologic: no cervical LAD, no supraclavicular LAD Lab Data & Imaging Review 12/31/17 14:32 12/31/17 14:32 WBC 8.67 10^3/uL (3.80-9.50) 12/31/17 14:32 RBC 2.68 10^6/uL (4.40-6.38) L 12/31/17 14:32 Hgb 7.4 g/dL (13.7-17.5) L 12/31/17 14:32 Hct 22.2 % (40.0-51.0) L 12/31/17 14:32 MCV 82.8 fL (81.5-99.8) 12/31/17 14:32 MCH 27.6 pg (27.9-34.1) L 12/31/17 14:32 MCHC 33.3 g/dL (32.4-36.7) 12/31/17 14:32 RDW 13.3 % (11.5-15.2) 12/31/17 14:32 Plt Count 236 10^3/uL (150-400) 12/31/17 14:32 MPV 9.0 fL (8.7-11.7) 12/31/17 14:32 Neut % (Auto) 80.1 % (39.3-74.2) H 12/31/17 14:32 Lymph % (Auto) 12.0 % (15.0-45.0) L 12/31/17 14:32 [place] % (Auto) 4.8 % (4.5-13.0) 12/31/17 14:32 Eos % (Auto) 1.6 % (0.6-7.6) 12/31/17 14:32 Baso % (Auto) 0.6 % (0.3-1.7) 12/31/17 14:32 Nucleat RBC Rel Count 0.0 % (0.0-0.2) 12/31/17 14:32 Absolute Neuts (auto) 6.94 10^3/uL (1.70-6.50) H 12/31/17 14:32 Absolute Lymphs (auto) 1.04 10^3/uL (1.00-3.00) 12/31/17 14:32 Absolute Monos (auto) 0.42 10^3/uL (0.30-0.80) 12/31/17 14:32 Absolute Eos (auto) 0.14 10^3/uL (0.03-0.40) 12/31/17 14:32 Absolute Basos (auto) 0.05 10^3/uL (0.02-0.10) 12/31/17 14:32 Absolute Nucleated RBC 0.00 10^3/uL (0-0.01) 12/31/17 14:32 Immature Gran % 0.9 % (0.0-1.1) 12/31/17 14:32 Immature Gran # 0.08 10^3/uL (0.00-0.10) 12/31/17 14:32 Sodium 141 mEq/L (135-145) 12/31/17 14:32 Potassium 4.8 mEq/L (3.3-5.0) 12/31/17 14:32 Chloride 99 mEq/L (97-110) 12/31/17 14:32 Carbon Dioxide 25 mEq/l (22-31) 12/31/17 14:32 Anion Gap 17 mEq/L (8-16) H 12/31/17 14:32 BUN 34 mg/dL (7-23) H 12/31/17 14:32 Creatinine 8.1 mg/dL (0.7-1.3) H* 12/31/17 14:32 Estimated GFR 8 12/31/17 14:32 Glucose 83 mg/dL (70-100) 12/31/17 14:32 Calcium 9.2 mg/dL (8.5-10.4) 12/31/17 14:32 NT-Pro-B Natriuret Pep 32442 pg/mL (0-125) H 12/31/17 14:32 Imaging Review: Chest CT reviewed: Impression: 1. No evidence of pulmonary embolus using CT protocol. 2. Interval increase in alveolar infiltrates bilaterally suggestive of pulmonary edema/CHF. Rule out pneumonia. 3. Mild to moderate right pleural effusion slightly decreased since the prior study. 4. Splenomegaly suspected. Visualized and Interpreted Chest x-ray results: Yes Chest X-Ray results: effusion (Right-sided) Visualized and Interpreted EKG results: Yes EKG additional interpertation: Sinus tachycardia rate 160 beats per minute Assessment & Plan Assessment: This is a 27-year-old male with history of end-stage renal disease recently hospitalized with similar symptoms attributed to multifocal pneumonia presenting with: #Acute hypoxemic respiratory failure most likely due to volume overload with recurrence right-sided pleural effusion -nephrology has been consulted by the emergency department -plan for hemodialysis to see if this helps his respiratory status. If he continues to be short of breath consider repeating thoracentesis # CHF (congestive heart failure) (Chronic) -echocardiogram # ESRD (end stage renal disease) (Chronic) -continue with hemodialysis per Dr. Malloy # headache most likely due to above -continue to monitor -p.r.n. Percocet # anemia of chronic disease -monitor Place in observation for now pending further workup and evaluation
[2017-12-31] MEDS ORDERED: ACETAMINOPHEN 325 MG TAB PO PRN (16:55)
[2017-12-31] MEDS ORDERED: ONDANSETRON 4 MG/2 ML VIAL IVP PRN (16:55)
[2017-12-31] MEDS ORDERED: EPOETIN ALFA 10,000 UNIT/ML VIAL SC PRN (17:58)
[2017-12-31] MEDS: oxyCODONE IR 5 MG TAB PO PRN ×2 (18:25→22:55)
[2017-12-31] MEDS: DIAZEPAM 5 MG TAB PO PRN (18:25)
[2017-12-31] MEDS: CARVEDILOL 25 MG TAB PO SCH (18:25)
[2017-12-31] MEDS: SEVELAMER HCL 800 MG TAB PO SCH (19:27)
[2017-12-31] MEDS: MINOXIDIL 10 MG TAB PO SCH (19:28)
[2017-12-31] MEDS: ZOLPIDEM TARTRATE 5 MG TAB PO PRN (21:12)
[2017-12-31] MEDS: HEPARIN 5,000 UNIT/0.5 ML INJ SC SCH (21:12)
[2017-12-31] MEDS: GABAPENTIN 100 MG CAP PO SCH (21:12)
--- NOTE | 2017-12-31 23:16 | GCON ---
[f rep st] CONSULTATION NEPHROLOGY CONSULTATION DATE OF CONSULTATION: 12/31/2017 REASON FOR CONSULTATION: Dyspnea, end-stage renal disease. HISTORY OF PRESENT ILLNESS: This is a 27-year-old male with end-stage renal disease secondary to con genital reasons, and a solitary kidney, dialyzing on Saturday, Saturday, Saturday at the [facility] under the care of Dr. Deep Rawls, who now presents with dyspnea. The patient has an extensive history at [facility]. His major issues have included severe hypertensi on, valve replacement, and a prosthetic valve endocarditis. The patient was just recently admitted a nd discharged secondary to dyspnea, believed related to either volume overload or pneumonia. He was treated with a course of levofloxacin, which has since ended. The patient has been doing much better relating to his compliance on dialysis. He stays for his pres cribed times. He continues to have severe interdialytic headaches, that he is coping better with thi s. He does note overall very poor exercise tolerance. He states he gets severely winded just walkin g across the room, and could not climb a flight of steps. He does have significant orthopnea. He st ates that the dialysis unit he is actually currently below his prescribed dry weight. He admits to n ot following a renal diet. The patient does state he did have some fevers over the weekend, as high as 102. He is presently afebrile. The patient now presents with complaints of dyspnea and orthopnea. The chest x-ray suggests some vas cular plethora. He did do a CT angiogram that was negative for pulmonary emboli. He does not have a ny other specific complaints. As related to the above reasons, we are asked by Dr. Caleb Burnett to assist the patient's management of end-stage renal disease. PAST MEDICAL HISTORY: 1. End-stage renal disease. 2. Hypertensive cardiomyopathy. 3. Past history of recreational drug use. 4. History of severe interdialytic headaches. 5. Anemia. 6. Status post mitral valve replacement and strep mitral valve endocarditis. 7. Anxiety and depression. SURGICAL HISTORY: 1. Fistula placement. 2. Mitral valve replacement. HOME MEDICATIONS: Erythropoietin 10,000 units subcutaneous weekly, Renvela 24 mg t.i.d., gabapentin 100 mg at bedtime, oxycodone p.r.n. pain. FAMILY HISTORY: Noncontributory. SOCIAL HISTORY: The patient does have family in the [place]. He is presently living with his mother in [facility]. He is not employed. He does not smoke cigarettes or drink alcohol. REVIEW OF SYSTEMS: GENERAL: The patient has had fevers and chills. He does have occasional headach es. He denies visual services. He denies rhinitis or sore throat. He does have a cough and shortne ss of breath. He has had some pleuritic right-sided chest pain. He denies overt left-sided chest pr essure. He denies abdominal pain, constipation, or diarrhea. He denies dysuria. He has not had low er extremity edema. He denies skin rashes. He does not have diabetes or thyroid disease. PHYSICAL EXAM: At the time of exam, the patient is appropriate and alert. Temperature 37.4, pulse 1 06, blood pressure 132/57. EYES: Sclerae clear. OROPHARYNX: Clear. NECK: No lymphadenopathy or thyromegaly. LUNGS: The patient has rales in the left lower lobe. His right side is diminished. O therwise they are clear. CARDIOVASCULAR: Tachycardic. The patient has a soft systolic murmur at th e left upper sternal border. ABDOMEN: Is scaphoid, nontender. AND RECTAL: Deferred. EXTREMITI ES: No lower extremity edema. The patient's left arm fistula looks good. NEURO: No focal findings . LABORATORY STUDIES: White count 8.7, hematocrit 22.2, platelets 236. Sodium 141, potassium 4.8, cre atinine 8.1. IMPRESSION AND PLAN: Problems: 1. Dyspnea and hypoxemia. The patient does have worsening shortness of breath. It does sound as if he has symptoms of fluid overload, including orthopnea, and worsening exercise tolerance. He does n ote having a fever over the weekend. Presently, his white blood cell count is normal, and he is afeb rile. We will monitor for issues relating to this. I am not sure when he last had an outpatient ech ocardiogram. We can review this with Cardiology and determine whether to perform a repeat echocardio gram to see if the patient's cardiac status has changed. Initially, however, we will perform daily d ialysis in attempt to establish a new dry weight. 2. Fevers. The patient has a history of fevers, but we do not presently have evidence of this. I w ill perform empiric blood cultures on dialysis tomorrow. 3. Anemia. The patient has been prescribed his erythropoietin. 4. Hypertension. This is fairly well controlled for the patient. Thank you for allowing us to participate in this patient's care. We will continue to follow him clos jose with you. /[id number]/MODL
[2018-01-01] MEDS: DIAZEPAM 5 MG TAB PO PRN ×3 (01:40→15:20)
[2018-01-01] MEDS: oxyCODONE IR 5 MG TAB PO PRN ×5 (04:03→22:26)
[2018-01-01 06:14] LABS: PLATELET COUNT 156 10^3/uL (150-400)
[2018-01-01] MEDS: HEPARIN 5,000 UNIT/0.5 ML INJ SC SCH ×3 (07:14→22:15)
--- NOTE | 2018-01-01 08:13 | SOAPPROG ---
SOAP Progress Note Assessment/Plan: Assessment: #ESRD- [facility] MWF -HD today- goal UF 3-4 kg as tolerates -EDW needs lowering-- challenge with HD today #SOB -suspect multifactorial: worsening anemia, volume overload, R pleural effusion -giving PRBCs today with HD -checking blood Cx (has consolidation on CT that may be fluid but rule out infectious cause) -HD with volume removal today -TTE pending -CTA neg PE #anemia CKD -transfuse PRBCs with HD (irradiated given potential transplant candidacy) -Epo 10,000 units 3x weekly with HD -GI eval? denies any bleeding or missed Epo dosing as outpt #MBD of CKD -phos 6.4, continue sevelamer binder, renal diet. HD will help I discussed with [employer]NAGEMENT ARCHITECT 01/01/18 08:36 Subjective: Feels SOB and cough, blood tinged sputum. Hb worse- denies any bleeding (RN reports no bleeding observed as well). Thinks he has lost some lean mass- not quite eating as much and working outside more lately with warmer weather. Trying to make better effort to go to HD and stay full treatment time given need for improved compliance for transplant. He denies any problems with AVF recently. Dad visiting this am. Objective: Vital Signs Temp Pulse Resp BP Pulse Ox 36.6 C 84 16 131/62 H 94 01/01/18 03:57 01/01/18 03:57 01/01/18 03:57 01/01/18 03:57 01/01/18 03:57 Laboratory Results 01/01/18 05:00 01/01/18 05:00 12/31/17 01/01/18 01/02/18 05:59 05:59 05:59 Intake Total 850 Balance 850 Physical Exam - Physical Exam General Appearance: alert, no apparent distress, other (on O2 by NC) EENT: other (mmm) Neck: supple Respiratory: other (rales bilat, decreased R base) Cardiac/Chest: regular rate, rhythm, other (no rub) Abdomen: normal bowel sounds, non-tender, soft Skin: warm/dry Extremities: other (no edema, LUE AVF +thrill/bruit) Neuro/Psych: alert, oriented x 3 ICD10 Worksheet Patient Problems: Problems Problem Status Onset Hypoxia Acute CHF (congestive heart failure) Chronic ESRD (end stage renal disease) Chronic Dyspnea Acute ESRD on hemodialysis Acute Elevated troponin Acute Fever Acute Headache Acute Pneumonia Acute Postoperative pneumothorax Acute Pulmonary edema Acute S/P mitral valve replacement with bioprosthetic valve Acute Tachycardia Acute Anemia Chronic Hypertensive urgency Chronic Severe mitral regurgitation Chronic
[2018-01-01] MEDS: MINOXIDIL 10 MG TAB PO SCH ×2 (08:39→17:52)
[2018-01-01] MEDS: ASPIRIN 81 MG CHEWABLE TAB PO SCH (08:39)
[2018-01-01] MEDS: CARVEDILOL 25 MG TAB PO SCH ×2 (08:39→17:52)
[2018-01-01] MEDS: SEVELAMER HCL 800 MG TAB PO SCH ×3 (08:42→17:52)
--- NOTE | 2018-01-01 11:58 | ECHO ---
[email or web address] [address] [address] Main: [phone] Fax: Transthoracic Echocardiogram Name: CONRADO ESPINOSA MR#: [id number] Study Date: 01/01/2018 Study Time: 08:25 AM Date of : 1990 Age: 27 year(s) Height: 162.6 cm (64 in.) Weight: 74.84 kg (165 lb.) BSA: 1.8 m2 Gender: Male Examination: Echo Indication: heart failure; S/P MVR Image Quality: Adequate Contrast: Requested by: Danny Ni BP: 138 mmHg/83 mmHg Heart Rate: Rhythm: Normal sinus rhythm Indication: heart failure; S/P MVR Procedure Staff Installer Metal Flooring: Anne Valadez [facility] Reading Physician: Abdoulaye Neville MD Requesting Provider: Conclusions: No pericardial effusion. Concentric left ventricular hypertrophy. Ejection fraction 73%. Septal dyskinesis. Mitral valve prosthesis with elevated peak gradient of 20-25 mm of mercury. Moderate tricuspid regurgitation with right ventricular systolic pressure 54 mm of mercury. Measurements: Chambers Valvular Assessment AV/MV Valvular Assessment TV/PV Normal Normal Normal Name Value Range Name Value Range Name Value Range Ao Tiffanie (MM): 3.1 cm (2.2 cm-3.7 AV Vmax: 1.82 m/s (1 m/s-1.7 TR Vmax: 3.49 mm/s ( - ) cm) m/s) TR PGmax: 49 mmHg ( - ) IVSd (2D): 1.2 cm (0.6 cm-1.1 AV maxP mmHg ( - ) syst. PAP: 54 mmHg ( - ) cm) LVOT Vmax: 1.39 m/s (0.7 m/s-1.1 PV Vmax: 1.28 m/s (0.6 m/s-0.9 LVDd (2D): 5.2 cm (4.2 cm-5.9 m/s) m/s) cm) MV meanP mmHg ( - ) PV PGmax: 7 mmHg ( - ) LVDs (2D): 3.2 cm (2.1 cm-4 MV PHT: 0.099 s ( - ) cm) MVA (PHT): 2.2 s ( - ) LVPWd (2D): 1.2 cm (0.6 cm-1 cm) LVEF (BP): 73 % (>=55 %) RVDd(2D): 3.8 cm (1.9 cm-3.8 cmmm) Continued Measurements: Chambers Valvular Assessment AV/MV Valvular Assessment TV/PV Name Value Name Value Name Value LADs: 4.2 cm MV VTI: 93.00 cm CVP (est.): 5 mmHg LADs Lon.8 cm LA Area: 24.7 cm2 LA Volume: 87 ml Patient: CONRADO ESPINOSA Study Date: 01/01/2018 Page 1 of 2 08:25 AM LA Volume Index: 33.7 ml/m2 TAPSE: 2.1 cm RA Area: 16.0 cm2 Additional Vessels Name Value Ao Ascendin.1 cm Findings: Left Ventricle: Left ventricle upper limits of normal. Mild to moderate LVH. Normal global systolic LV function. EF is 73 %. There is paradoxic septal motion suggestive of bundle branch block, paced cardiac rhythm, or prior cardiac surgery. Unable to assess diastolic dysfunction. Right Ventricle: Normal size right ventricle. Normal RV function. Left Atrium: Left atrial enlargement. Right Atrium: The right atrium is normal in size. Mitral Valve: A bioprothetic mitral valve is in place. The prosthetic mitral valve exhibits moderately thickened cusps. The gradient across the MVR has increased from 17mmHg to 20-25mmHg on echo today. Severe prosthetic mitral stenosis. Mild mitral regugitation noted. Aortic Valve: The aortic valve is tri-leaflet and functions normally. There is no aortic valve regurgitation. No aortic valve stenosis is present. Tricuspid Valve: The tricuspid valve appears normal. Moderate tricuspid regurgitation is present. Right ventricular systolic pressure measures 54mmHg. The pulmonary artery pressure is moderately increased. Pulmonic Valve: The pulmonic valve is normal in appearance and function. Mild pulmonic valve regurgitation is noted. Aorta: Normal size aortic root measuring 3.1 cm. Normal size ascending aorta measuring 2.1 cm. IVC: The IVC is normal sized. Pericardium: No pericardial effusion. There is a pleural effusion present. (No Signature Object) Patient: CONRADO ESPINOSA Study Date: 01/01/2018 Page 2 of 2 08:25 AM [id number]
[2018-01-01] MEDS ORDERED: ACETAMINOPHEN/ASA/CAFFEINE 1 EACH TAB PO PRN (16:39)
[2018-01-01] MEDS ORDERED: ACETAMINOPHEN 500 MG TAB PO ONE (16:45)
--- NOTE | 2018-01-01 16:54 | PDCARPN ---
Cardiology Progress Note Chief Complaint: shortness of breath Assessment/Plan: Assessment: Patient is a 27 y/o male, well known to me in the outpatient setting at [facility], with history of end stage renal disease (on HD three times per week), MICS MVR for severe MR, HTN, and non ischaemic CMP (normalization has been noted ), who presents back to [facility] with complaints of severe, progressive shortness of breath. This is the third admission for the patient for similar symptoms ( according to the patient). Most recent admission prior with thoughts/concerns about "pneumonia", and antibiotic course was successfully taken, but even after this therapy has completed, the patient does not feel that the shortness of breath has resolved. Immediately after the surgery, the patient felt very well. No overt limitations related to shortness of breath were noted. Echocardiogram in the outpatient setting from 12-13-17 with normal LVEF (67%), bioprosthetic mitral valve with mean gradient of 12 mm Hg (which was improved in comparison to prior echo with mean gradient of 17 mm Hg. Of note, however, was severe elevation to the right ventricular systolic pressure (74 mm Hg). Moderate tricuspid regurgitation was noted. Echocardiogram in house today with mean gradient of 20-25 mm Hg today and RVSP to 54 mm Hg. Anemia was dramatic today, and may play some part in the significant fluctuations of the mean gradient, but it does not easily explain the progressive symptoms that the patient has noted. Chest pains are noted with deep inspiration, and at present , the patient has a rather significant head ache (post dialysis). Two PRBC units have been given (while dialysis ongoing). Plan: Reassessment of the H/H to determine where the two units of PRBC got the levels Would arrange for limited echocardiogram tomorrow Consideration for right heart cath to actually measure the gradient through the mitral valve We will continue to follow the patient closely I spoke with CT surgery about this readmission Subjective: Head ache, shortness of breath, and chest tightness with deep inspiration Objective: Intake/Output (24 Hrs) 12/31/17 01/01/18 01/02/18 05:59 05:59 05:59 Intake Total 850 Output Total 3 Balance 850 -3 Intake: Oral (ml) 850 Output: Dialysis Fluid Removed 3 Other: Weight 74.843 kg 55.5 kg Intake Quantity Yes Sufficient Number of Voids Toilet 1 Result Diagrams: 01/01/18 05:00 01/01/18 05:00 Telemetry: sinus rhythm Echocardiogram: Normal LVEF, mean gradient through the mitral valve of 20-25 mm Hg - Physical Exam Constitutional: WDWN, general pain, apparent distress Eyes: PERRL, EOMI Ears, Nose, Mouth, Throat: moist mucous membranes Cardiovascular: regular rate and rhythm, systolic murmur, pulses symmetric bilat , No jugular vein distention Peripheral Pulses: 2+: dorsalis-pedis (R), dorsalis-pedis (L) Respiratory: clear to auscultate bilat, reduced air movement (to right base) Gastrointestinal: normoactive bowel sounds Skin: no rashes, no edema Musculoskeletal: no muscular tenderness Neurologic: AAOx3, CN II-XII grossly intact Psychiatric: cooperative, interactive, following commands, anxious (concerns about the degree of shortness of breath noted with limited activity) ICD10 Worksheet Patient Problems: Problems Problem Status Onset Hypoxia Acute CHF (congestive heart failure) Chronic ESRD (end stage renal disease) Chronic Dyspnea Acute ESRD on hemodialysis Acute Elevated troponin Acute Fever Acute Headache Acute Pneumonia Acute Postoperative pneumothorax Acute Pulmonary edema Acute S/P mitral valve replacement with bioprosthetic valve Acute Tachycardia Acute Anemia Chronic Hypertensive urgency Chronic Severe mitral regurgitation Chronic
--- NOTE | 2018-01-01 19:17 | HOSPPROG ---
Hospitalist Progress Note Assessment/Plan: * Acute respiratory failure due to pulmonary edema -s/p acute dialysis * Recent bioprosthetic MV - now with progressive severe MS -repeat limited ECHO in am when not anemic -consider right heart cath -CT surgery notified * Anemia -s/p 2 units PRBC -may be due to ESRD -renal suggests possible GI work-up - will heme check stools * ESRD -MWF dialysis Subjective: NO new complaints. Objective: Vital Signs Temp Pulse Resp BP Pulse Ox 37.1 C 107 H 19 139/73 H 96 01/01/18 16:00 01/01/18 17:52 01/01/18 16:00 01/01/18 17:52 01/01/18 16:00 Laboratory Results 01/01/18 16:39 01/01/18 05:00 12/31/17 01/01/18 01/02/18 05:59 05:59 05:59 Intake Total 850 Output Total 3 Balance 850 -3 ECHO - severe MS - worse d/w Dr. Low - cardiology to see - Physical Exam Constitutional: no apparent distress, appears nourished, not in pain Cardiovascular: regular rate and rhythym, no murmur, rub, or gallop Respiratory: no respiratory distress, no rales or rhonchi, clear to auscultation , inspiratory crackles, No expiratory wheeze Gastrointestinal: normoactive bowel sounds, soft, non-tender abdomen, no palpable masses Skin: no rashes or abrasions, no fluctuance, no induration Neurologic: AAOx3, sensation intact bilaterally Psychiatric: interacting appropriately, not anxious, not encephalopathic, thought process linear ICD10 Worksheet Patient Problems: Problems Problem Status Onset Hypoxia Acute CHF (congestive heart failure) Chronic ESRD (end stage renal disease) Chronic Dyspnea Acute ESRD on hemodialysis Acute Elevated troponin Acute Fever Acute Headache Acute Pneumonia Acute Postoperative pneumothorax Acute Pulmonary edema Acute S/P mitral valve replacement with bioprosthetic valve Acute Tachycardia Acute Anemia Chronic Hypertensive urgency Chronic Severe mitral regurgitation Chronic
[2018-01-01] MEDS: GABAPENTIN 100 MG CAP PO SCH (20:33)
[2018-01-01] MEDS: DIAZEPAM 5 MG/ML 1 ML SYR IVP PRN (21:07)
[2018-01-01] MEDS: ZOLPIDEM TARTRATE 5 MG TAB PO PRN (21:07)
[2018-01-02] MEDS: oxyCODONE IR 5 MG TAB PO PRN (02:21)
[2018-01-02] MEDS: DIAZEPAM 5 MG/ML 1 ML SYR IVP PRN (03:07)
[2018-01-02 05:57] LABS: PLATELET COUNT 198 10^3/uL (150-400)
[2018-01-02] MEDS: HEPARIN 5,000 UNIT/0.5 ML INJ SC SCH (06:37)
--- NOTE | 2018-01-02 07:56 | PDMN ---
Medical Necessity Medical necessity: Change to IP, as of 01/01/18, per MD; los >2 mn for ongoing management of acute respiratory failure r/t pulmonary edema, as well as anemia & progressive severe mitral stenosis; admit to ICU for close monitoring/further workup, Cardiology consult w/possible intervention & possible GI workup; hx ESRD w/hemodialysis, CHF, MVR & anemia; per progress note & order 01/01/18
[2018-01-02] MEDS: ASPIRIN 81 MG CHEWABLE TAB PO SCH (08:44)
[2018-01-02] MEDS: MINOXIDIL 10 MG TAB PO SCH (08:45)
[2018-01-02] MEDS: CARVEDILOL 25 MG TAB PO SCH (08:45)
[2018-01-02] MEDS: SEVELAMER HCL 800 MG TAB PO SCH (08:45)
[2018-01-02] MEDS: DIAZEPAM 5 MG TAB PO PRN (08:45)
--- NOTE | 2018-01-02 09:14 | ECHO ---
[email or web address] [address] [address] Main: [phone] Fax: Transthoracic Echocardiogram Name: CONRADO ESPINOSA MR#: [id number] Study Date: 01/02/2018 Study Time: 07:35 AM Date of : 1990 Age: 27 year(s) Height: 162.6 cm (64 in.) Weight: 55.34 kg (122 lb.) BSA: 1.59 m2 Gender: Male Examination: Limited Echo Indication: Shortness of breath/anemia, two units of PRBC given 01/01/18, and wanting to see if there are changes to mitral gradient with this therapy Image Quality: Adequate Contrast: Requested by: Shant Low BP: 126 mmHg/68 mmHg Heart Rate: Rhythm: Indication: Shortness of breath/anemia, two units of PRBC given 01/01/18, and wanting to see if there are changes to mitral gradient with this therapy Procedure Staff Bomb Technician: Pam Quigley RDCS Reading Physician: Shant Low MD Requesting Provider: Conclusions: Normal size left ventricle. No LV hypertrophy. Normal global systolic LV function. A bioprothetic mitral valve is in place. The mitral valve prosthesis exhibits abnormal function. Mild MV prosthesis regurgitation. The echo performed 01/01/18 demonstrates a mean gradient of 20-25 mmhg. The mean gradient today was 20 mmhg. This is increased from the prior gradient of 17 mmhg. Gradient range on this echocardiogram was 15-20 mm Hg. Past echocardiograms with range of 15-20 mm Hg. Gradients were lower on todays study (post PRBC tranfusions). There continues to be more gradient elevation than expected this soon post valve. Measurements: Chambers Valvular Assessment AV/MV Valvular Assessment TV/PV Normal Normal Normal Name Value Range Name Value Range Name Value Range Visual EF: 65 % MV maxP mmHg ( - ) MV meanP mmHg ( - ) MV PHT: 0.092 s ( - ) MVA (PHT): 2.4 s ( - ) Continued Measurements: Valvular Assessment AV/MV Patient: CONRADO ESPINOSA Study Date: 01/02/2018 Page 1 of 2 07:35 AM Name Value MV VTI: 97.20 cm Findings: Left Ventricle: Normal size left ventricle. No LV hypertrophy. Normal global systolic LV function. The ejection fraction is visually estimated to be 65 %. No regional wall motion abnormality. Mitral Valve: A bioprothetic mitral valve is in place. The mitral valve prosthesis exhibits abnormal function. Mild MV prosthesis regurgitation. MVR PHT measured after echo. PHT measures 92 ms and MVA is 2.4 mmhg. The mean gradient today was 20 mmhg. This is increased from the prior gradient of 17 mmhg. Tricuspid Valve: Moderate tricuspid regurgitation is present. (No Signature Object) Patient: CONRADO ESPINOSA Study Date: 01/02/2018 Page 2 of 2 07:35 AM [id number]
--- NOTE | 2018-01-02 09:50 | PDCARPN ---
Cardiology Progress Note Chief Complaint: Patient doing better today - head ache from yesterday is absent Assessment/Plan: Assessment: 01-02-18 Patient doing better today. No head ache is noted today. Dyspnea continues to be noted, but might be slightly better. Limited echocardiogram with some improvement in the gradient through the mitral valve (from 20-25 mm Hg yesterday to 15-20 mm Hg today). The upper end of the gradient (20 mm Hg), is still too high, and likely contributes to the symptoms noted. Given the variability that has been noted, recommendations for the patient to have right heart cath for more concrete assessment of the right heart pressures (rather than that which we obtain from the surface echo). Patient voiced strong desire to go home today. 01-01-18 Patient is a 27 y/o male, well known to me in the outpatient setting at [facility], with history of end stage renal disease (on HD three times per week), MICS MVR for severe MR, HTN, and non ischaemic CMP (normalization has been noted ), who presents back to [facility] with complaints of severe, progressive shortness of breath. This is the third admission for the patient for similar symptoms ( according to the patient). Most recent admission prior with thoughts/concerns about "pneumonia", and antibiotic course was successfully taken, but even after this therapy has completed, the patient does not feel that the shortness of breath has resolved. Immediately after the surgery, the patient felt very well. No overt limitations related to shortness of breath were noted. Echocardiogram in the outpatient setting from 12-13-17 with normal LVEF (67%), bioprosthetic mitral valve with mean gradient of 12 mm Hg (which was improved in comparison to prior echo with mean gradient of 17 mm Hg. Of note, however, was severe elevation to the right ventricular systolic pressure (74 mm Hg). Moderate tricuspid regurgitation was noted. Echocardiogram in house today with mean gradient of 20-25 mm Hg today and RVSP to 54 mm Hg. Anemia was dramatic today, and may play some part in the significant fluctuations of the mean gradient, but it does not easily explain the progressive symptoms that the patient has noted. Chest pains are noted with deep inspiration, and at present , the patient has a rather significant head ache (post dialysis). Two PRBC units have been given (while dialysis ongoing). Plan: (1) Would discharge the patient to home (2) Outpatient follow up to be arranged within one week (3) Would have outpatient right heart cath arranged with the outpatient office visit. Subjective: Patient doing better today. Reviewed/Discussed With: family Objective: Vital Signs (8 Hrs) Temp Pulse Resp BP Pulse Ox 01/02/18 07:34 36.8 C 86 18 126/68 H 97 01/02/18 06:00 37.0 C 89 18 116/54 L 99 01/02/18 04:00 85 17 95 Intake/Output (24 Hrs) 01/01/18 01/02/18 01/03/18 05:59 05:59 05:59 Intake Total 850 500 Output Total 3 Balance 850 497 Intake: Oral (ml) 850 500 Output: Dialysis Fluid Removed 3 Other: Weight 74.843 kg 55.5 kg Intake Quantity Yes No Sufficient Number of Voids Toilet 1 Number of Stools Toilet 1 Result Diagrams: 01/02/18 05:48 01/02/18 05:48 EKG: normal sinus rhythm Echocardiogram: normal systolic function with drop in the mitral valve mean gradient overnight ( post PRBC transfusion). - Physical Exam Constitutional: WDWN, healthy appearing, no apparent distress Eyes: PERRL, EOMI Ears, Nose, Mouth, Throat: moist mucous membranes Cardiovascular: regular rate and rhythm, systolic murmur, pulses symmetric bilat Peripheral Pulses: 2+: dorsalis-pedis (R), dorsalis-pedis (L) Respiratory: clear to auscultate bilat, no crackles, no wheezes Gastrointestinal: normoactive bowel sounds Skin: no rashes, no edema Musculoskeletal: no muscular tenderness Neurologic: AAOx3, CN II-XII grossly intact Psychiatric: cooperative, interactive, following commands ICD10 Worksheet Patient Problems: Problems Problem Status Onset Hypoxia Acute CHF (congestive heart failure) Chronic ESRD (end stage renal disease) Chronic Dyspnea Acute ESRD on hemodialysis Acute Elevated troponin Acute Fever Acute Headache Acute Pneumonia Acute Postoperative pneumothorax Acute Pulmonary edema Acute S/P mitral valve replacement with bioprosthetic valve Acute Tachycardia Acute Anemia Chronic Hypertensive urgency Chronic Severe mitral regurgitation Chronic
--- NOTE | 2018-01-02 11:05 | SOAPPROG ---
SOAP Progress Note Assessment/Plan: Assessment: 1. ESRD Stable HD yesterday, volume improved with further EF. 2. Anemia He was transfused yesterday. 3. Dyspnea Much improved, likely due to both better Hg and volume status. Cards is following. He may have some mild MS attributing to symptoms. Appears ready for DC. Plan: 01/02/18 11:04 Subjective: Doing better Objective: Vital Signs Temp Pulse Resp BP Pulse Ox 36.8 C 86 18 126/68 H 97 01/02/18 07:34 01/02/18 07:34 01/02/18 07:34 01/02/18 07:34 01/02/18 07:34 Laboratory Results 01/02/18 05:48 01/02/18 05:48 01/01/18 01/02/18 01/03/18 05:59 05:59 05:59 Intake Total 850 500 Output Total 3 Balance 850 497 Physical Exam - Physical Exam General Appearance: no apparent distress Respiratory: lungs clear Cardiac/Chest: regular rate, rhythm Extremities: normal inspection Neuro/Psych: oriented x 3 ICD10 Worksheet Patient Problems: Problems Problem Status Onset Hypoxia Acute CHF (congestive heart failure) Chronic ESRD (end stage renal disease) Chronic Dyspnea Acute ESRD on hemodialysis Acute Elevated troponin Acute Fever Acute Headache Acute Pneumonia Acute Postoperative pneumothorax Acute Pulmonary edema Acute S/P mitral valve replacement with bioprosthetic valve Acute Tachycardia Acute Anemia Chronic Hypertensive urgency Chronic Severe mitral regurgitation Chronic
--- NOTE | 2018-01-02 11:24 | PDDCSUM ---
Discharge Summary Discharge Summary: Dates of service 12/31-01/03/28 Consultations: cardiology, nephrology Procedures performed: chest CTA, echocardiogram Hospital course by problem: * Acute respiratory failure due to pulmonary edema -s/p acute dialysis and improved and now on RA * Recent bioprosthetic MV - now with progressive severe MS -discussed with cardiology and plan is for outpatient w/u with right heart cath to be performed in coming days as an OP * Anemia -s/p 2 units PRBC -may be due to ESRD -renal suggests possible GI work-up * ESRD -MWF dialysis DC home f/u with cardiology--they will call patient with appointment time > 35 min spent in dc of patient, more than half in coordination of care
[2018-01-02 11:30] VITALS: BP 121/66
--- NOTE | 2018-01-02 14:09 | ASMTLACE ---
JARETHE Length of stay for Answers: 2 days current admission Acuity / Level of Answers: Yes Care: Did the patient have an inpatient admission? Comorbidities - select Answers: Congestive heart failure all that apply Moderate or severe liver or renal disease # of Emergency department Answers: 1-2 visits in the last 6 months Social determinants Answers: History of substance abuse (ETOH, street drugs, prescription drugs, etc.) Score: 15 Date Signed: 01/02/2018 02:09 PM Electronically Signed By:ELIDIA Francisco
--- NOTE | 2018-01-02 14:09 | ASMTCMCOM ---
CM Note CM Note Notes: CM met w/ pt for dispo planning. CM provided pt w/ list of mental health resources. Pt hopes to get a therapist and a psychiatrist. CM provided pt w/ information for [facility] and [facility] for transportation to his medical appointments. Pt was agreeable for CM to make a referral to [facility] for outpatient services. CM [facility]. Pt does not have any other identifiable needs at this time. CM available for changes. Plan: Independent Date Signed: 01/02/2018 02:08 PM Electronically Signed By:ELIDIA Francisco
== END 2018-01-02 12:27 | disposition home or self-care (01) | DRG 189 ==
LOC: OBSVTOIN 16:56 → F2N 17:19 → F2W 01-02 09:50
PROVIDERS: ADMIT Family Medicine; ATTEND Internal Medicine
DX: J81.1 Chronic pulmonary edema (principal); J96.00 Acute respiratory failure, unspecified whether with hypoxia or hypercapnia; T82.857A Stenosis of other cardiac prosthetic devices, implants and grafts, initial encounter; N18.6 End stage renal disease; Q60.0 Renal agenesis, unilateral; I13.0 Hypertensive heart and chronic kidney disease with heart failure and stage 1 through stage 4 chronic kidney disease, or unspecified chronic kidney disease; I50.9 Heart failure, unspecified; D64.9 Anemia, unspecified; Z95.3 Presence of xenogenic heart valve; Z87.891 Personal history of nicotine dependence; Z99.2 Dependence on renal dialysis
CPT/HCPCS: 96374; G0378; J0885; J1644; J2405; J2765; J3360; P9016; P9040; Q9967

== ENCOUNTER 2018-01-10 11:27 | Day surgery (SDC) | payer OTHER, MEDICAID ==
[2018-01-10] MEDS ORDERED: LIDOCAINE 1% 300 MG/30 ML SDV ONE (12:29)
[2018-01-10] MEDS ORDERED: fentaNYL 100 MCG/2 ML INJ ONE ×2 (12:30→13:48)
[2018-01-10] MEDS ORDERED: MIDAZOLAM 2 MG/2 ML VIAL ONE ×2 (12:30→13:21)
--- NOTE | 2018-01-10 13:00 | PDPROPOC ---
Sedation Plan of Care Sedation Plan of Care: vital signs stable, mental status noted, patient educated of risks, benefits, alternatives, patient can tolerate sedation ASA Classification: ASA 1 Planned drugs: fentanyl, midazolam Mallampati Score: Class 1 Mallampati Reference Image: Patient passed 3-3-2 rule?: Yes
[2018-01-10] MEDS ORDERED: ATROPINE SULFATE 1 MG/10 ML SYR IVP PRN (14:47)
[2018-01-10] MEDS ORDERED: ONDANSETRON 4 MG/2 ML VIAL IVP PRN (14:47)
[2018-01-10] MEDS ORDERED: HYDROCODONE/APAP 5/325 TAB PO PRN (14:47)
--- NOTE | 2018-01-10 14:58 | PDDXCAT ---
Diagnostic Cath Note - . Date: 01/10/18 Sack Repairer: Adal Indication: other (Prosthetic mitral valve stenosis and pulmonary hypertension.) - Procedure Access: right groin Procedure: left heart catheterization, right heart catheterization - Materials Left Heart Cath size: 5F Left Heart Cath materials: pigtail Right Heart Cath size: 7F Right Heart Cath materials: PWP catheter - Findings-Left Heart Catheterization LM: No angiography; hemodynamic study only. LVEF: No LV-gram; hemodynamic study only. - Findings-Right Heart Catheterization RA: 15 mmHg RV: 56/16 mmHg PA: 56/32/42 mmHg O2 sat 65% PAOP: 24 mmHg AO: 112/68/87 mmHg O2 sat 92.3% CO: 7.41 L/min CI: 4.06 L/min/sq mtr Complications: None Estimated blood loss: <50ml Closure method: manual pressure Assessment: 1) Mean prosthetic mitral valve gradient of 13.9 mmHg; mitral valve area 1.84 sq cm. 2) Moderate pulmonary hypertension. Patient Problems: Problems Problem Status Onset Dyspnea Acute ESRD on hemodialysis Acute Elevated troponin Acute Fever Acute Headache Acute Hypoxia Acute Pneumonia Acute Postoperative pneumothorax Acute Pulmonary edema Acute S/P mitral valve replacement with bioprosthetic valve Acute Tachycardia Acute Anemia Chronic CHF (congestive heart failure) Chronic ESRD (end stage renal disease) Chronic Hypertensive urgency Chronic Severe mitral regurgitation Chronic
== END 2018-01-10 19:16 | disposition home or self-care (01) ==
LOC: FCATH 11:27
PROVIDERS: ATTEND Internal Medicine Interventional Cardiology
PROC: B2111ZZ Fluoroscopy of Multiple Coronary Arteries using Low Osmolar Contrast (ICD-10-PCS; principal; 2018-01-10)
PROC: 4A023N8 Measurement of Cardiac Sampling and Pressure, Bilateral, Percutaneous Approach (ICD-10-PCS; principal; 2018-01-10)
PROC: B2151ZZ Fluoroscopy of Left Heart using Low Osmolar Contrast (ICD-10-PCS; principal; 2018-01-10)
DX: I27.20 Pulmonary hypertension, unspecified (principal); Z95.4 Presence of other heart-valve replacement; I42.9 Cardiomyopathy, unspecified; R06.02 Shortness of breath; F32.9 Major depressive disorder, single episode, unspecified; F41.9 Anxiety disorder, unspecified; N18.6 End stage renal disease; I12.0 Hypertensive chronic kidney disease with stage 5 chronic kidney disease or end stage renal disease; D63.1 Anemia in chronic kidney disease; F17.200 Nicotine dependence, unspecified, uncomplicated; G43.909 Migraine, unspecified, not intractable, without status migrainosus; Z79.82 Long term (current) use of aspirin; Z95.3 Presence of xenogenic heart valve; Z99.2 Dependence on renal dialysis
CPT/HCPCS: J1644; J2250; J3010

== ENCOUNTER 2018-01-11 21:06 | Inpatient (IN) | payer OTHER, MEDICAID ==
[2018-01-11 21:40] LABS: PLATELET COUNT 174 10^3/uL (150-400)
--- NOTE | 2018-01-11 21:43 | CPEKG ---
Heart Rate: 105 RR Interval: 571 P-R Interval: 140 QRSD Interval: 80 QT Interval: 316 QTC Interval: 418 P [place]: 59 QRS [place]: -23 T Wave [place]: 107 EKG Severity - OTHERWISE NORMAL ECG - EKG Impression: SINUS TACHYCARDIA EKG Impression: BORDERLINE LEFT AXIS DEVIATION Electronically Signed By: Eliot Lorenzo 11-Jan-2018 23:08:11
--- NOTE | 2018-01-11 22:36 | EDPHY ---
H & P Time Seen by Provider: 01/11/18 21:24 HPI/ROS: HPI Short of breath. 27-year-old male with a complicated past medical history. History of end-stage renal disease, dialyzed Mondays, Wednesdays and Fridays. Also recent bioprosthetic mitral valve replacement. Presents to the emergency department for shortness of breath. He was just admitted to the hospital with this complaint and a diagnosis of congestive heart failure and fluid overload. He had a right and left heart catheterization by Dr. Smooth Galeas performed yesterday. Indication: prosthetic mitral valve stenosis. Pulmonary hypertension noted. Please see Dr. Galeas report for further details. He reports worsening shortness of breath since yesterday evening. Recently treated for pneumonia as well. He completed a course of Levaquin. Denies chest pain at this time. ROS: Constitutional: No fever, no chills. No weakness. Eyes: No discharge. No changes in vision. ENT: No sore throat. No nasal congestion or rhinorrhea. Respiratory: No cough. As above. Cardiac: No chest pain, no palpitations. Gastrointestinal: No abdominal pain, no vomiting, no diarrhea. Genitourinary: No hematuria. No dysuria or increased frequency with urination. Musculoskeletal: No back pain. No neck pain. No myalgias or arthralgias. Skin: No rashes. Neurological: No headache. No focal weakness or altered sensation. Past medical history: End-stage renal disease secondary to solitary kidney, on hemodialysis Saturday and Saturday, CHF, history of mitral valve prolapse status post replacement as noted above, anemia of chronic kidney disease on Procrit. Surgical history includes AV fistula and cholecystectomy. Social history: Former smoker. Denies alcohol. Lives with his mother currently. Uses the bus system for transportation. Physical Exam: General Appearance: Alert, no distress. This patient is responding to questions appropriately and in full sentences. This patient appears well- hydrated and well-nourished. Eyes: Pupils equal and round no pallor or injection. No lid edema, erythema or injection. Respiratory: There are no retractions, fine crackles, mid lung morrison, worse on the left versus the right. No tachypnea. Cardiovascular: Regular rate and rhythm. Borderline tachycardia. Murmur. Gastrointestinal: Abdomen is soft and nontender, no masses, bowel sounds normal. No focal tenderness at McBurney's point. No Khan sign. Neurological: Motor sensory function is grossly intact. Cranial nerves are normal. Gait is normal. Skin: Warm and dry, no rashes. Musculoskeletal: Neck is supple and nontender. Extremities are symmetrical. All joints range without pain or impingement. Psychiatric: No agitation. No depression. Database: EKG: EKG time is 9:41 p.m.; EKG shows a narrow complex normal sinus rhythm with a ventricular rate of 105. The ID, QRS, QT intervals are within normal limits. There are no ST-T wave changes indicative of ischemic or injury pattern. No evidence of right heart strain. Interpreted by me. Imaging: Chest x-ray PA and lateral; persistent perihilar infiltrate/pulmonary edema with possible underlying pneumonia. Appears slightly worse than previous chest x-ray from December 31 of this year. Interpreted by me. Procedures: Emergency department course: Triage vital signs reviewed. He is moderately hypertensive. Tachycardic at 115. Afebrile. IV was placed. He was placed on a registered nurse cardiac. EKG obtained and reviewed by myself. Blood work reviewed. Anemia and creatinine appear stable. Potassium within normal limits. Chest x-ray significant for congestive heart failure. Patient currently not hypoxic or in distress. 10:45 p.m., spoke with on-call hospitalist Dr. Sonny Sherman. He is familiar with this patient. Currently the patient does not require emergent treatment of his CHF. Dr. Sherman will see the patient in the emergency department. Antibiotic administration and management of CHF will be deferred to Dr. Sherman. The patient's remaining emergency department course under my care has been uneventful. The patient was admitted to telemetry in stable condition. 11:00 p.m., spoke with on-call Nephrology, Dr. Marybeth Saravia of [facility]. She will consult on this patient in the morning. Differential Diagnosis: The differential diagnosis on this patient includes but is not limited to end- stage renal disease with CHF secondary to fluid overload, chronic anemia. Pneumonia unlikely. This represents a partial list of diagnoses considered. These considerations are based on history, physical exam, past history, reassessment and diagnostic testing. Smoking Status: Current every day smoker Constitutional: Initial Vital Signs Temperature (C) 37.2 C 01/11/18 21:08 Heart Rate 115 H 01/11/18 21:08 Respiratory Rate 18 02/18 21:08 Blood Pressure 151/101 H 01/11/18 21:08 O2 Sat (%) 93 01/11/18 21:08 O2 Delivery Mode Room Air Allergies/Adverse Reactions: No Known Allergies Allergy (Verified 01/11/18 21:11) Home Medications: Medication Instructions Recorded Aspirin EC [Aspirin EC 81 mg (*)] 81 mg PO DAILY 01/12/18 Carvedilol [Carvedilol] 25 mg PO BID 01/12/18 Diazepam [Valium 5 MG (*)] 5 mg PO TID PRN 01/12/18 Gabapentin [Neurontin 100 MG (*)] 100 mg PO HS 01/12/18 Minoxidil [Minoxidil 10 mg (*)] 10 mg PO BID 01/12/18 amLODIPine BESYLATE [Amlodipine 10 mg PO DAILY 01/12/18 Besylate] oxyCODONE HCL/ACETAMINOPHEN 2 each PO MWF PRN 01/12/18 [Percocet 10-325 mg Tablet] Medical Decision Making - Data Points Laboratory Results: Laboratory Results 01/11/18 21:25 01/11/18 21:25 Medications Given: Acetaminophen (Tylenol) 650 mg PO Q4HRS PRN PRN Reason: Pain, Mild/Fever, Can Take PO Stop: 07/11/18 00:21 Last Admin: 01/12/18 00:51 Dose: 650 mg [facility]ilol (Coreg) [facility] Stop: 07/11/18 07:59 Last Admin: 01/12/18 08:09 Dose: 25 mg Furosemide (Lasix Injection) 80 mg IVP Q8HRS BRANDY Stop: 07/11/18 00:20 Last Admin: 01/12/18 06:26 Dose: 80 mg Heparin Sodium (Porcine) (Heparin Sc Injection) 5,000 unit SC Q8 BRANDY Stop: 07/11/18 05:59 Last Admin: 01/12/18 06:21 Dose: Not Given Oxycodone HCl (Oxycodone Ir) 5 - 10 mg PO Q3HRS PRN PRN Reason: Pain, Severe Able to Take PO Stop: 01/22/18 00:21 Last Admin: 01/12/18 06:29 Dose: 10 mg Discontinued Medications Hydrocodone Bitart/Acetaminophen ([place] 5/325) 2 tab PO EDNOW ONE Stop: 01/11/18 22:49 Last Admin: 01/11/18 22:49 Dose: 2 tab Diazepam (Valium) 5 mg PO Q6HRS PRN PRN Reason: Anxiety, Able to Take PO Stop: 07/11/18 00:24 Last Admin: 01/12/18 08:09 Dose: 5 mg Departure - Departure Disposition: [facility] Inpatient Acute Clinical Impression: CHF (congestive heart failure), ESRD (end stage renal disease), S/P mitral valve replacement with bioprosthetic valve, Anemia
[2018-01-11] MEDS ORDERED: HYDROCODONE/APAP 5/325 TAB ONE (22:47)
[2018-01-11] MEDS ORDERED: HYDROCODONE/APAP 5/325 TAB PO ONE (22:48)
[2018-01-12] MEDS ORDERED: ONDANSETRON 4 MG/2 ML VIAL IVP PRN (00:22)
[2018-01-12] MEDS ORDERED: ONDANSETRON DISINTEGRATING 4 MG TAB PO PRN (00:22)
[2018-01-12] MEDS: ACETAMINOPHEN 325 MG TAB PO PRN ×2 (00:51→11:31)
[2018-01-12] MEDS: FUROSEMIDE 100 MG/10 ML VIAL IVP SCH ×2 (00:52→06:26)
[2018-01-12] MEDS: DIAZEPAM 5 MG TAB PO PRN ×4 (00:52→22:52)
--- NOTE | 2018-01-12 01:39 | GHP ---
[f rep st] HISTORY AND PHYSICAL DATE OF ADMISSION: 01/11/2018 HISTORY OF PRESENT ILLNESS: The patient is a pleasant 27-year-old gentleman with a history of end-st age renal disease, mitral valve disease, status post replacement in July of last year. He actual ly had right and left heart catheterizations yesterday on the , which revealed moderate pulmonary hypertension with a mitral valve gradient of 14 mmHg. He presents today with shortness of breath and pulmonary edema. The patient said he has been coughing and having increased work of breathing. He has not had lower extremity swelling. He attends dialysis on a regular basis. He says they have bee n challenging him and trying to get fluid off. He has noticed he has had some hemoptysis, but no ashok ght red blood per rectum or melena. In late December, he was admitted here and he actually was transfused for a low hemoglobin of 6.4, resulting in improvement of his mitral valve gradient. This is detaile d in the echocardiogram report 01/02/2018. No fever, chills, sputum. REVIEW OF SYSTEMS: Complete 10-point review of systems conducted, negative except as noted in the HP I. PAST MEDICAL HISTORY: 1. Mitral valve replacement, July of 2017, bioprosthetic valve. 2. End-stage renal disease secondary to solitary kidney. 3. Mitral valve prolapse, status post replacement. 4. Anemia of chronic kidney disease. 5. Migraines. 6. Congestive heart failure. 7. Left upper extremity AV fistula. 8. He has had a cholecystectomy. FAMILY HISTORY: Reviewed and unremarkable. SOCIAL HISTORY: Quit smoking. Lives with his mother. Works at the [employer] in [place]. No drug use. No stimulant drugs. ALLERGIES: No known drug allergies. HOME MEDICATIONS: Tylenol, Excedrin, amlodipine, aspirin, Benadryl, carvedilol, diazepam, Epogen, ga bapentin, minoxidil, Percocet, Renvela. PHYSICAL EXAMINATION: PRESENTING VITALS: Temperature 37.2, blood pressure 151/101. Was 121/66 when he was here the other day. Pulse 115, breathing 18 times a minute, 93% on room air. GENERAL: No a cute distress. Sclerae anicteric. Oropharynx clear. Mucous membranes are moist. Neck is supple wi thout lymphadenopathy. JVD is elevated to intermediate to the angle of the jaw, sitting at about 60 degre es. Lungs show crackles bilaterally throughout about the lower half of the lung morrison. Heart is S1 , S2, with a systolic murmur. Abdomen is soft, nontender, nondistended. Lower extremities show trac e edema bilaterally. Calves are nontender. Skin is without rash. Neurologic exam is nonfocal. LABORATORY DATA: White count is 8.3, hematocrit 24.8, which is about his baseline, hemoglobin is 174 . Sodium 139, potassium 4.4, chloride 98, bicarb 28, BUN 30, creatinine 7.7, glucose 106. He recent ly had a negative stool guaiac. Chest x-ray, interpreted by me, shows bilateral pulmonary edema with evidence of mitral valve replace ment. Small amount of right pleural fluid is noted. EKG: Sinus at 105. Left axis deviation. Normal intervals. No ST or T-wave changes. I discussed the case with Dr. Eliot Lorenzo. ASSESSMENT AND PLAN: This is a 27-year-old gentleman with bioprosthetic valve with an elevated gradi ent, presents with symptomatic heart failure. 1. Congestive heart failure. The patient has bilateral airspace disease, jugular venous distention, and known elevated gradient. He did not receive contrast or fluid challenge during his right and le ft heart scans yesterday. He does respond to Lasix. I have written him for 80 IV q.8. We will star t that tonight. 2. The patient is hypertensive and tachycardic here. I wonder if better blood pressure control woul d not improve some of his hemodynamics. I have restarted his carvedilol. We will discuss with Cardi ology. 3. Possible pneumonia. The chest x-ray report mentioned this could possibly be pneumonia. He does not have a leukocytosis. He does not have fever. We will follow and hold antibiotics. 4. Mitral valve gradient. I will have Cardiology see him. 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 5. End-stage renal disease. He is due for dialysis on Saturday. I will reach out to Nephrology to e him to help with a challenging attempt to get fluid off. He is not particularly volume overloaded by physical exam, at least with regard to edema. He does have pulmonary edema. 6. Migraines. We will continue some of his pain medicines. 7. Anemia. This is likely anemia of chronic kidney disease. DISPOSITION: Inpatient status. /[id number]/MODL
[2018-01-12] MEDS: oxyCODONE IR 5 MG TAB PO PRN ×4 (01:45→22:51)
--- NOTE | 2018-01-12 06:02 | PDMN ---
Medical Necessity Medical necessity: C/M review: est. > 2 MN LOS for eval and TX of acute CHF exacerbation, , hyperternsion, tachycardia, possible pneumonia, bilateral pulmonary edema seen on CXR, elevated mitral valve gradient, shortness of breath , hemoptysis, requiring planned Cardiology consult, Nephrology consult, ongoing IV Lasix, cardiac monitoring, pulse oximetry, supplemental O2, comorbid ESRD secondary to solitary kidney, on hemodialysis, migraines, anemia of chronic kidney disease, history of mitral valve replacement 07/2017, bioprosthetic valve, CHF, left upper extremity AV flstula per H/P.
[2018-01-12] MEDS: HEPARIN 5,000 UNIT/0.5 ML INJ SC SCH ×3 (06:21→23:40)
[2018-01-12] MEDS: CARVEDILOL 25 MG TAB PO SCH ×2 (08:09→11:29)
--- NOTE | 2018-01-12 08:40 | HOSPPROG ---
Hospitalist Progress Note Assessment/Plan: # dyspnea - most likely d/t cardiorenal disease; will not start abx at this point # MVR with stenosis, thrombosed - likely underlying cause of volume issues - discussed with Dr Farr - feels he needs a new valve - will d/w cardiology # ESRD - plan HD today # htn - follow after HD Subjective: still SOB Objective: Vital Signs Temp Pulse Resp BP Pulse Ox 36.8 C 84 17 158/83 H 97 01/12/18 07:38 01/12/18 07:38 01/12/18 07:38 01/12/18 07:38 01/12/18 07:38 Laboratory Results 01/12/18 07:40 01/11/18 01/12/18 01/13/18 05:59 05:59 05:59 Intake Total 210 Output Total 100 Balance 110 chart reviewed CXR personally reviewed discussed with Dr Saravia - Physical Exam Constitutional: not in pain Cardiovascular: regular rate and rhythym, systolic murmur, No irregularly irregular, No tachycardia, No bradycardia Respiratory: inspiratory crackles (mild basilar), respiratory distress (mild), No clear to auscultation, No expiratory wheeze, No bronchial breath sounds Gastrointestinal: soft, non-tender abdomen, no palpable masses, No guarding, No rebound, No distension ICD10 Worksheet Patient Problems: Problems Problem Status Onset Dyspnea Acute ESRD on hemodialysis Acute Elevated troponin Acute Headache Acute Pneumonia Acute Pulmonary edema Acute Hypoxia Acute Tachycardia Acute Fever Acute Severe mitral regurgitation Chronic Postoperative pneumothorax Acute S/P mitral valve replacement with bioprosthetic valve Acute ESRD (end stage renal disease) Chronic Anemia Chronic CHF (congestive heart failure) Chronic Hypertensive urgency Chronic
[2018-01-12] MEDS ORDERED: OXYCODONE/APAP 5/325 TAB PO PRN (08:47)
[2018-01-12] MEDS ORDERED: oxyCODONE IR 5 MG TAB PO PRN (08:49)
[2018-01-12] MEDS ORDERED: CARVEDILOL 25 MG TAB PO SCH (09:00)
[2018-01-12] MEDS ORDERED: OXYCODONE HCL PO PRN (09:29)
[2018-01-12] MEDS ORDERED: ACETAMINOPHEN PO PRN (09:29)
--- NOTE | 2018-01-12 09:31 | PDCARPN ---
Cardiology Progress Note Assessment/Plan: Assessment/plan: 27-year-old male with end-stage renal disease on hemodialysis , difficult to control hypertension, chronic anemia, and valvular heart disease. In July 2017 he had a 20. 5 magna bioprosthesis in the mitral position for functional mitral regurgitation. Clinically he did well for 2 months after that but has since then had progressive dyspnea, progressively increased trans mitral valve gradients. He did have an episode of bacteremia in August without SANJAY evidence of endocarditis. He has also had pneumonia over the past several weeks. He is now readmitted with heart failure. 1. Valvular heart disease: Early calcific degeneration of his mitral valve prosthesis. Certainly volume overload and chronic anemia contribute to mitral stenosis and symptoms. Based on right heart catheterization on January 10 his PA pressures were 56/32, wedge was 24 and his mean mitral valve gradient was 14 with a calculated valve area of 1.8. I had a long discussion with the patient as well as the cardiothoracic surgery service. Tentative plan would be for redo mitral valve replacement with a mechanical prosthesis this SaturdayJanuary 14. We will plan for SANJAY tomorrow to further define the issues with his mitral valve and also ensure that his other valves are normal. Continue diuresis and dialysis. 2. Hypertension: Blood pressures are still high but not the worst they have been. Continue home medications. He is on max dose of beta-blockers. 3. End-stage renal disease on hemodialysis: Followed by [facility]. Continue his usual dialysis. 4. Anemia: This is chronic. The patient reports that he does receive Epogen from dialysis. Will discuss whether he would benefit from blood transfusion as well, he reports that he has previously gotten blood transfusions and felt better for few days but then felt worse again. Greater than 35 min spent in chart review, direct review of echocardiograms, discussion with other physicians in discussion with the patient. 01/12/18 09:34 Subjective: His dyspnea is somewhat improved overnight with IV Lasix. He is not having anginal chest pain. He does report some blood tinged sputum with coughing. No fevers at home. No lower extremity edema Reviewed/Discussed With: other (Dr. Smooth Farr. Dr. Sonny Sherman.) Time Spent with Patient: greater than 35 minutes Time Spent with Patient: Greater than 35 minutes spent on this patients care, greater than 50% of time spent counseling, educating, and coordinating care regarding the above mentioned plan. Objective: Vital Signs (8 Hrs) Temp Pulse Resp BP Pulse Ox 01/12/18 07:38 36.8 C 84 17 158/83 H 97 01/12/18 04:00 36.6 C 82 16 139/71 H 91 L Intake/Output (24 Hrs) 01/11/18 01/12/18 01/13/18 05:59 05:59 05:59 Intake Total 210 Output Total 100 Balance 110 Intake: Oral (ml) 200 IV Infused (ml) 10 Output: Urine (ml) 100 Urinal 100 Other: Weight 70.3 kg Number of Voids 0 Urinal 1 No acute distress. Understandably frustrated. JVP less than 10 with the patient sitting upright. Regular rate and rhythm with 2/6 systolic ejection murmur at the base. 1/4 early diastolic murmur at the apex. No gallop or rub. Lungs clear bilaterally without wheeze rhonchi or rales No lower extremity edema Result Diagrams: 01/11/18 21:25 01/12/18 07:40 EKG: Reviewed from 01/11: Sinus tachycardia. Minimal lateral ST depression. Left axis deviation Telemetry: Sinus rhythm Echocardiogram: I reviewed echocardiogram from December 13 and January 02 as well as SANJAY from August 2017. On SANJAY, 1 month post mitral valve replacement, the mitral valve prosthesis was functioning normally. On more recent transthoracic echocardiograms the mean gradient ranges from 15-20 across the prosthetic mitral valve. ICD10 Worksheet Patient Problems: Problems Problem Status Onset S/P mitral valve replacement with bioprosthetic valve Acute Anemia Chronic CHF (congestive heart failure) Chronic ESRD (end stage renal disease) Chronic Dyspnea Acute ESRD on hemodialysis Acute Elevated troponin Acute Fever Acute Headache Acute Hypoxia Acute Pneumonia Acute Postoperative pneumothorax Acute Pulmonary edema Acute Tachycardia Acute Hypertensive urgency Chronic Severe mitral regurgitation Chronic
--- NOTE | 2018-01-12 10:16 | ASMTCMCOM ---
CM Note CM Note Notes: Chart reviewed, 27 year old male in with symptoms of heart failure. Questioning vegetation on valve. History of ESRD on dialysis, previous MVR. Surgery consulted. Needs TBD. Plan: TBD Date Signed: 01/12/2018 10:15 AM Electronically Signed By:Leandra Bush RN
[2018-01-12] MEDS: ASPIRIN EC 81 MG TAB PO SCH (11:29)
[2018-01-12] MEDS: MINOXIDIL 10 MG TAB PO SCH ×2 (11:29→22:52)
[2018-01-12] MEDS ORDERED: CANN-EASE 2 GM TUBE TP PRN (13:31)
--- NOTE | 2018-01-12 20:13 | SOAPPROG ---
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 Rawls, mitral valve disease s/p bioprosthetic valve placed July 2017, now with symptomatic mitral stenosis of prosthetic valve admitted with progressive dyspnea with exertion and orthopnea. # ESRD- Will do extra HD session on night of 01/12 and HD again on 01/13 to try to optimize volume status for planned mitral valve surgery on 01/14 --Dialysis vitamin daily # Stenosis of bioprosthetic mitral valve with symptomatic heart failure SANJAY planned for 01/13 --Cards and CT surgery have evaluated patient, planning for re-do mitral valve replacement with mechanical valve on 01/14 # Hypervolemia- Will do extra HD session on night of 01/12 and HD again on 01/13 to try to optimize volume status for planned mitral valve surgery on 01/14 # Hyperkalemia- at goal --continue to modulate with HD # metabolic acidosis- well-controlled. 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 Rawls, mitral valve disease s/p bioprosthetic valve placed July 2017, who presents with progressive dyspnea with exertion and orthopnea. Patient reports feeling well for 2 months after first valve replacement surgery. Since then, he has had progressive worsening of shortness of breath. Patient reports multiple hospitalizations for same symptoms over the past 6 months. He is getting frustrated and is tired of having all of these health problems. He hasn't seen his children in 3 months because he has been too sick to take care of them. He feels bad on and after dialysis with headache and generalized weakness. He reports subjective fevers at home but no documented fevers at dialysis. He has not missed a session of HD in 6 months. Patient last dialyzed on 01/10. Objective: Vital Signs Temp Pulse Resp BP Pulse Ox 36.4 C 81 20 128/72 H 91 L 01/12/18 13:30 01/12/18 13:30 01/12/18 13:30 01/12/18 13:30 01/12/18 13:30 Laboratory Results 01/12/18 07:40 01/11/18 01/12/18 01/13/18 05:59 05:59 05:59 Intake Total 210 550 Output Total 100 Balance 110 550 General: Awake, alert, well-appearing Eyes: + perioribtal edema, anicteric sclera HEENT: MMM, no oral lesions CV: NRRR, + systolic murmur, 1-2+ bilateral LE edema (R>L) Pulm: Lungs CTAB, no wheezes or rales Extrem: Distal LUE AVF with good bruit and thrill Skin: no rashes or bruising on exposed skin Psych: Depressed mood Neuro: CN II-XII grossly intact, moves all extremities. ICD10 Worksheet Patient Problems: Problems Problem Status Onset S/P mitral valve replacement with bioprosthetic valve Acute Anemia Chronic CHF (congestive heart failure) Chronic ESRD (end stage renal disease) Chronic Dyspnea Acute ESRD on hemodialysis Acute Elevated troponin Acute Fever Acute Headache Acute Hypoxia Acute Pneumonia Acute Postoperative pneumothorax Acute Pulmonary edema Acute Tachycardia Acute Hypertensive urgency Chronic Severe mitral regurgitation Chronic
[2018-01-12] MEDS: GABAPENTIN 100 MG CAP PO SCH (22:52)
[2018-01-12] MEDS: ZOLPIDEM TARTRATE 5 MG TAB PO PRN (23:34)
[2018-01-13] MEDS: ACETAMINOPHEN 325 MG TAB PO PRN (01:16)
[2018-01-13] MEDS ORDERED: HYDROmorphONE/DILAUDID 1 MG/ML INJ IVP ONE ×3 (01:48→10:30)
[2018-01-13] MEDS ORDERED: NS 1,000 ML IV ONE (06:00)
[2018-01-13] MEDS: HEPARIN 5,000 UNIT/0.5 ML INJ SC SCH (08:06)
[2018-01-13] MEDS: DIAZEPAM 5 MG TAB PO PRN ×3 (08:12→17:45)
--- NOTE | 2018-01-13 08:12 | SOAPPROG ---
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 Rawls, mitral valve disease s/p bioprosthetic valve placed July 2017, now with symptomatic mitral stenosis of prosthetic valve admitted with progressive dyspnea with exertion and orthopnea. # ESRD- [facility] MWF *Had extra HD session on night of 01/12 and plan HD again on 01/13 to try to optimize volume status for planned mitral valve surgery on 01/14 --Dialysis vitamin daily -has signficant anxiety on dialysis- reviewed with him why important to do extra treatments to help optimize volume status- he is willing # Stenosis of bioprosthetic mitral valve with symptomatic heart failure SANJAY planned for 01/13-- we will schedule HD around this --Cards and CT surgery have evaluated patient, planning for re-do mitral valve replacement with mechanical valve on 01/14 # Hyperkalemia- at goal K 5.0 today --continue to modulate with HD, renal diet when taking po # metabolic acidosis- well-controlled. --continue to modulate with HD # Anemia ESRD- Hgb below goal 8.2 recent transfusion last admit --Epo 10,000 units sq weekly while here # Hypertension- at goal on current meds BP 120s-140s currently --May need to hold some meds pre-HD if UF limited by hypotension Paige Ac MD [facility] [phone] 01/13/18 08:54 Subjective: Frustrated about being in hospital but understands why and willing to proceed with plan. SOB about same. Had extra HD last night-- has a lot of anxiety on treatments (chronically). No n/v. Objective: Vital Signs Temp Pulse Resp BP Pulse Ox 36.6 C 78 16 115/73 100 01/13/18 07:43 01/13/18 07:43 01/13/18 07:43 01/13/18 07:43 01/13/18 07:43 Laboratory Results 01/13/18 03:42 01/12/18 01/13/18 01/14/18 05:59 05:59 05:59 Intake Total 210 650 Output Total 100 2700 Balance 110 -2050 Physical Exam - Physical Exam General Appearance: alert, no apparent distress EENT: other (mmm) Neck: supple Respiratory: lungs clear Cardiac/Chest: regular rate, rhythm Abdomen: non-tender, soft Skin: warm/dry Extremities: other (no edema, LUE AVF) Neuro/Psych: alert, oriented x 3 ICD10 Worksheet Patient Problems: Problems Problem Status Onset S/P mitral valve replacement with bioprosthetic valve Acute Anemia Chronic CHF (congestive heart failure) Chronic ESRD (end stage renal disease) Chronic Dyspnea Acute ESRD on hemodialysis Acute Elevated troponin Acute Fever Acute Headache Acute Hypoxia Acute Pneumonia Acute Postoperative pneumothorax Acute Pulmonary edema Acute Tachycardia Acute Hypertensive urgency Chronic Severe mitral regurgitation Chronic
[2018-01-13] MEDS: oxyCODONE IR 5 MG TAB PO PRN ×4 (08:14→22:15)
[2018-01-13] MEDS: MINOXIDIL 10 MG TAB PO SCH ×2 (08:15→19:47)
[2018-01-13] MEDS: CARVEDILOL 25 MG TAB PO SCH ×2 (08:16→17:45)
[2018-01-13] MEDS: NEPHROVITE FOLIC ACID/VIT B&C 1 TAB PO SCH ×2 (08:17→08:19)
[2018-01-13] MEDS: ASPIRIN EC 81 MG TAB PO SCH (08:17)
--- NOTE | 2018-01-13 09:03 | PDHPUP ---
History & Physical Update H&P update statement: This history and physical update is based on an assessment of the patient which was completed after admission or registration (within 24 hours), but prior to the surgery/procedure. H&P update: H&P reviewed & patient examined, no change in patient's condition since H&P completed (see note dated 01/12/2018)
--- NOTE | 2018-01-13 09:49 | HOSPPROG ---
Hospitalist Progress Note Assessment/Plan: # dyspnea - most likely d/t cardiorenal disease; will not start abx at this point # MVR with stenosis, thrombosed - likely underlying cause of volume issues - SANJAY today for further evaluation - plan MVR with mechanical tomorrow # ESRD - plan HD again today today # htn - follow after HD # depression/anxiety - situational; he has good insight into this # QUIGLEY - suspect underlying QUIGLEY disorder; given potential lifelong need for AC after mechanical MVR, will check a CTH today Subjective: frustrated with how slowly things are moving; he also c/o QUIGLEY worse than normal Objective: Vital Signs Temp Pulse Resp BP Pulse Ox 36.6 C 77 16 145/94 H 100 01/13/18 07:43 01/13/18 08:16 01/13/18 07:43 01/13/18 08:17 01/13/18 07:43 Laboratory Results 01/13/18 03:42 01/12/18 01/13/18 01/14/18 05:59 05:59 05:59 Intake Total 210 650 Output Total 100 2700 Balance 110 -2049 - Physical Exam Constitutional: no apparent distress, appears nourished Cardiovascular: regular rate and rhythym, systolic murmur Respiratory: no respiratory distress, no rales or rhonchi Gastrointestinal: soft, non-tender abdomen, no palpable masses, No guarding, No rebound, No distension ICD10 Worksheet Patient Problems: Problems Problem Status Onset Dyspnea Acute ESRD on hemodialysis Acute Elevated troponin Acute Headache Acute Pneumonia Acute Pulmonary edema Acute Hypoxia Acute Tachycardia Acute Fever Acute Severe mitral regurgitation Chronic Postoperative pneumothorax Acute S/P mitral valve replacement with bioprosthetic valve Acute ESRD (end stage renal disease) Chronic Anemia Chronic CHF (congestive heart failure) Chronic Hypertensive urgency Chronic
[2018-01-13] MEDS ORDERED: BENZOCAINE UNIT DOSE SPRAY HURRICAINE MM ONE (10:59)
[2018-01-13] MEDS ORDERED: NS 500 ML IV ONE (10:59)
[2018-01-13] MEDS ORDERED: MIDAZOLAM 2 MG/2 ML VIAL IVP ONE (10:59)
[2018-01-13] MEDS ORDERED: fentaNYL 100 MCG/2 ML INJ IVP ONE (10:59)
--- NOTE | 2018-01-13 11:32 | PDANEPAE ---
ANE Past Medical History - Cardiovascular History Hx Hypertension: Yes Hx Arrhythmias: No Hx Chest Pain: No Hx Coronary Artery / Peripheral Vascular Disease: No Hx CHF / Valvular Disease: Yes Hx Palpitations: No Cardiovascular History Comment: htn. mitral valve prolapse. chf - Pulmonary History Hx COPD: No Hx Asthma/Reactive Airway Disease: No Hx Recent Upper Respiratory Infection: No Hx Oxygen in Use at Home: Yes O2 in Use at Home (L/minute): 5 Hx Sleep Apnea: No - Neurologic History Hx Cerebrovascular Accident: No Hx Seizures: No Hx Dementia: No Neurologic History Comment: migraines - Endocrine History Hx Diabetes: No - Renal History Hx Renal Disorders: Yes Renal History Comment: esrd. dialysis m-w-f @ [facility] - Liver History Hx Hepatic Disorders: No - Neurological & Psychiatric Hx Hx Neurological and Psychiatric Disorders: No - Cancer History Hx Cancer: No - Congenital Disorder History Hx Congenital Disorders: No - GI History Hx Gastrointestinal Disorders: No - Other Health History Other Health History: missing teeth from previous surgery. fistula left wrist area - Chronic Pain History Chronic Pain: Yes (back pain, head) - Surgical History Prior Surgeries: 07/10/17 multiple dental extractions with Catrina. gallbladder removal. fistula placement ANE Review of Systems Review of Systems: ANE Patient History - Allergies Allergies/Adverse Reactions: No Known Allergies Allergy (Verified 01/11/18 21:11) - Home Medications Home Medications: Aspirin EC [Aspirin EC 81 mg (*)] 81 mg PO DAILY 01/12/18 [Last Taken 01/11/18] Carvedilol [Carvedilol] 25 mg PO BID 01/12/18 [Last Taken 01/11/18] Diazepam [Valium 5 MG (*)] 5 mg PO TID PRN 01/12/18 [Last Taken Unknown] Gabapentin [Neurontin 100 MG (*)] 100 mg PO HS 01/12/18 [Last Taken 01/10/18] Minoxidil [Minoxidil 10 mg (*)] 10 mg PO BID 01/12/18 [Last Taken 01/11/18] amLODIPine BESYLATE [Amlodipine Besylate] 10 mg PO DAILY 01/12/18 [Last Taken ] oxyCODONE HCL/ACETAMINOPHEN [Percocet 10-325 mg Tablet] 2 each PO MWF PRN [Last Taken 06/01/18] - Smoking Hx Smoking Status: Current every day smoker - Family Anes Hx Family Hx Anesthesia Complications: None ANE Labs/Vital Signs - Labs Result Diagrams: 01/11/18 21:25 01/13/18 03:42 - Vital Signs Blood Pressure: 145/94 Heart Rate: 77 Respiratory Rate: 16 O2 Sat (%): 100 Height: 175.26 cm Weight: 68.946 kg ANE Physical Exam - Airway Mallampati Score: Class 2 - ASA Status ASA Status: III ANE Anesthesia Plan Total IV Anesthesia: Yes
[2018-01-13] MEDS ORDERED: PROPOFOL 200 MG/20 ML VIAL ONE (11:34)
[2018-01-13] MEDS ORDERED: ONDANSETRON 4 MG/2 ML VIAL IVP PRN (11:59)
[2018-01-13] MEDS ORDERED: NALOXONE HCL 0.4 MG/ML INJ IVP PRN (11:59)
--- NOTE | 2018-01-13 12:00 | POSTANESTH ---
Post Anesthetic Evaluation Cardiovascular Status: Similar to Pre-Op Cond Respiratory Status: Similar to Pre-op Cond. Level of Consciousness/Mental Status: Can Participate in Eval Pain Control: Adequate, Prn Tx Ordered Nausea/Vomiting Control: Adequate, Prn Tx Ordered Complications Possibly Related to Anesthesia: None Noted
--- NOTE | 2018-01-13 12:06 | PDCARPN ---
Cardiology Progress Note Assessment/Plan: Assessment/plan: 27-year-old male with end-stage renal disease on hemodialysis , difficult to control hypertension, chronic anemia, and valvular heart disease. In July 2017 he had a #25 magna bioprosthesis in the mitral position for functional mitral regurgitation. Clinically he did well for 2 months after that but has since then had progressive dyspnea, progressively increased trans mitral valve gradients. He did have an episode of bacteremia in August without SANJAY evidence of endocarditis. He has also had pneumonia tecently. He is now readmitted with heart failure. 1. Valvular heart disease: Early calcific degeneration of his mitral valve prosthesis. Certainly volume overload and chronic anemia contribute to increased mitral valve gradients and symptoms. Based on right heart catheterization on January 10 his PA pressures were 56/32, wedge was 24 and his mean mitral valve gradient was 14 with a calculated valve area of 1.8. I had a long discussion with the patient as well as the cardiothoracic surgery service. SANJAY on 01/13 shows restriction of 2 of the 3 bioprosthetic mitral valve leaflet. Mod to severe TR. Will discuss the possibility of balloon valvuplasty with Dr. Jackson; if this is not an option, patient may need mechanical MVR. Continue diuresis and dialysis. Would favor blood transfusion. 2. Hypertension: Blood pressures are still high but not the worst they have been. Continue home medications. He is on max dose of beta-blockers. 3. End-stage renal disease on hemodialysis: Followed by [facility]. Continue his usual dialysis. 4. Anemia: This is chronic. He receives Epogen. Would favor transfusion now. 01/13/18 12:03 Subjective: Still SOB. No CP. Has QUIGELY post HD. CT negative today. Reviewed/Discussed With: hospitalist, other (Dr. Farr) Objective: Vital Signs (8 Hrs) Temp Pulse Resp BP Pulse Ox 01/13/18 11:32 77 16 145/94 H 100 01/13/18 08:17 145/94 H 01/13/18 08:16 77 145/94 H 01/13/18 08:15 145/94 H 01/13/18 07:43 36.6 C 78 16 115/73 100 01/13/18 05:33 36.6 C 87 16 123/54 H 94 Intake/Output (24 Hrs) 01/12/18 01/13/18 01/14/18 05:59 05:59 05:59 Intake Total 210 650 Output Total 100 2700 Balance 110 -2049 Intake: Oral (ml) 200 650 IV Infused (ml) 10 Output: Urine (ml) 100 Urinal 100 Dialysis Fluid Removed 2700 Other: Weight 70.3 kg 68.946 kg Number of Voids 0 Urinal 1 Number of Stools Toilet 1 Deferred due to SANJAY Result Diagrams: 01/11/18 21:25 01/13/18 03:42 ICD10 Worksheet Patient Problems: Problems Problem Status Onset Dyspnea Acute ESRD on hemodialysis Acute Elevated troponin Acute Headache Acute Pneumonia Acute Pulmonary edema Acute Hypoxia Acute Tachycardia Acute Fever Acute Severe mitral regurgitation Chronic Postoperative pneumothorax Acute S/P mitral valve replacement with bioprosthetic valve Acute ESRD (end stage renal disease) Chronic Anemia Chronic CHF (congestive heart failure) Chronic Hypertensive urgency Chronic
--- NOTE | 2018-01-13 12:26 | ASMTCMCOM ---
CM Note CM Note Notes: 01/13/2018 Case Management Note Discussed pt during rounds today. Pt having a SANJAY today. Pt to have surgery tomorrow. There are no therapies ordered at this time. Spiritual Care to visit with patient today. Case Management d/c poc: to be determined. Case Management to follow. Date Signed: 01/13/2018 12:26 PM Electronically Signed By:Lindy Ibarra RN
--- NOTE | 2018-01-13 18:21 | ECHO ---
[email or web address] [address] [address] Main: [phone] Fax: Transesophageal Echocardiography Name: CONRADO ESPINOSA MR#: [id number] Study Date: 01/13/2018 Study Time: 11:30 AM Date of : 1990 Age: 27 year(s) Height: ( ) Weight: ( ) BSA: Gender: Male Examination: SANJAY Indication: Image Quality: Adequate Contrast: Requested by: Laney Johnson Heart Rate: Rhythm: BP: / Procedure Staff Jewelry Sales Associate: Pam Quigley RDCS Reading Physician: Laney Johnson MD Requesting Provider: Smooth Farr SANJAY Exam Details Patient Consent: Risks, alternatives of procedure explained to patient, informed consent obtained. Conclusions: Normal size left ventricle. Normal global systolic LV function. No regional wall motion abnormality. Normal size right ventricle. Normal RV function. No thrombus in left appendage. #25 bioprosthesis. Mean gradient measures 14 mmhg across bioprosthetic valve. Moderate MS and mild MR. Two of three leaflets are fused. No vegetation. . The aortic valve is normal in appearance and function. Moderate to severe tricuspid valve regurgitation. Measurements: Chambers Valvular Assessment AV/MV Valvular Assessment TV/PV Normal Normal Normal Name Value Range Name Value Range Name Value Range MV meanP mmHg ( - ) TR PGmax: 40 mmHg ( - ) syst. PAP: 45 mmHg ( - ) Additional Measurements: Valvular Assessment AV/MV Valvular Assessment TV/PV Name Value Name Value MV VTI: 75.30 cm CVP (est.): 5 mmHg Patient: CONRADO ESPINOSA Study Date: 01/13/2018 Page 1 of 2 11:30 AM Findings: Left Ventricle: Normal size left ventricle. No LV hypertrophy. Normal global systolic LV function. No regional wall motion abnormality. Unable to assess diastolic dysfunction. Right Ventricle: Normal size right ventricle. Normal RV function. Left Atrium: The left atrium is normal in size. Left Atrial Appendage: The left atrial appendage is unilobular. Good color flow doppler in the left atrial appendage. Normal PW-Doppler flow pattern. No thrombus in left appendage. Right Atrium: The right atrium is normal in size. Mitral Valve: #25 bioprosthesis. Mean gradient measures 14 mmhg across bioprosthetic valve. Moderate MS and mild MR. Two of three leaflets are fused. No vegetation. . Aortic Valve: The aortic valve is normal in appearance and function. There is no significant aortic valve regurgitation. Tricuspid Valve: The tricuspid valve is normal in appearance and function. Moderate to severe tricuspid valve regurgitation. Pulmonic Valve: The pulmonic valve is normal in appearance and function. There is no pulmonic regurgitation seen. Aorta: The aorta is normal. Pericardium: No pericardial effusion. No pleural effusion. l1n (No Signature Object) Patient: CONRADO ESPINOSA Study Date: 01/13/2018 Page 2 of 2 11:30 AM [id number]
[2018-01-13] MEDS ORDERED: HYDROmorphONE/DILAUDID 4 MG TAB PO ONE (18:45)
[2018-01-13] MEDS: GABAPENTIN 100 MG CAP PO SCH (19:47)
[2018-01-13] MEDS ORDERED: ALPRAZolam 0.5 MG TAB PO PRN (21:41)
[2018-01-13] MEDS: EPOETIN ALFA 10,000 UNIT/ML VIAL SC SCH ×2 (22:19→23:34)
[2018-01-13] MEDS: ZOLPIDEM TARTRATE 5 MG TAB PO PRN (23:34)
[2018-01-14] MEDS: oxyCODONE IR 5 MG TAB PO PRN ×3 (02:18→11:10)
[2018-01-14] MEDS: ACETAMINOPHEN 325 MG TAB PO PRN ×2 (02:19→11:09)
[2018-01-14] MEDS ORDERED: ALPRAZolam 0.25 MG TAB PO PRN (08:04)
[2018-01-14] MEDS: ALPRAZolam 0.25 MG TAB PO PRN ×2 (08:12→10:29)
[2018-01-14] MEDS: ASPIRIN EC 81 MG TAB PO SCH (08:23)
[2018-01-14] MEDS: MINOXIDIL 10 MG TAB PO SCH (08:23)
[2018-01-14] MEDS: CARVEDILOL 25 MG TAB PO SCH (08:23)
[2018-01-14] MEDS: NEPHROVITE FOLIC ACID/VIT B&C 1 TAB PO SCH (08:24)
--- NOTE | 2018-01-14 10:14 | SOAPPROG ---
JASON Progress Note Assessment/Plan: Assessment: ESRD on TIW HD SOB better after consecutive days of dialysis recent MVR, now with leaflet dysfunction, Cardiology and T-Surg discussing [id number] valve Anemia, if transfused would irradiate PRBC as could sensitize patient for transplant volume overload better Plan: Await decision regarding mitral valve HD tomorrow if transfused, please irradiate PRBC all questions answered to patient satisfaction 01/14/18 10:11 Subjective: "I just want to feel better" SOB better today, but still not feeling great no cp nausea vomiting or anorexia sleeping OK, getting up and around Frustrated Objective: Vital Signs Temp Pulse Resp BP Pulse Ox 36.8 C 85 16 135/96 H 95 01/14/18 08:00 01/14/18 08:00 01/14/18 04:00 01/14/18 08:00 01/14/18 08:00 Laboratory Results 01/14/18 04:06 01/13/18 01/14/18 01/15/18 05:59 05:59 05:59 Intake Total 650 1000 Output Total 2700 3450 Balance -2050 -2450 Physical Exam - Physical Exam General Appearance: alert, thin Respiratory: No rhonchi, No wheezing Cardiac/Chest: regular rate, rhythm, systolic murmur, No edema, No friction rub Abdomen: normal bowel sounds, non-tender, soft Extremities: other (L FA AVF ), No swelling Neuro/Psych: alert, oriented x 3 ICD10 Worksheet Patient Problems: Problems Problem Status Onset S/P mitral valve replacement with bioprosthetic valve Acute Anemia Chronic CHF (congestive heart failure) Chronic ESRD (end stage renal disease) Chronic Dyspnea Acute ESRD on hemodialysis Acute Elevated troponin Acute Fever Acute Headache Acute Hypoxia Acute Pneumonia Acute Postoperative pneumothorax Acute Pulmonary edema Acute Tachycardia Acute Hypertensive urgency Chronic Severe mitral regurgitation Chronic
[2018-01-14 11:36] VITALS: BP 133/81
--- NOTE | 2018-01-14 13:28 | GDS ---
[f rep st] DISCHARGE SUMMARY ALL DIAGNOSES: 1. Mitral valve replacement with functional mitral stenosis due to a likely thrombosed valve. 2. Dyspnea likely due to the above. 3. End-stage renal disease, on dialysis. 4. Hypertension. 5. Depression and anxiety. 6. Headache. HOSPITAL COURSE: A 27-year-old man admitted with worsening dyspnea. This is his 4th admission this month. SANJAY performed on this hospitalization showed that his prostatic mitral valve has 2 leaflets w hich are not moving. He had a gradient of 14 mmHg on recent right-sided heart cath. Interventional Cardiology as well as cardiothoracic surgery have been involved on this admission. He will meet with Dr. Jackson tomorrow to discuss balloon valvuloplasty. If this is unsuccessful, he may need a valve replacement. At that point, Dr. Farr would recommend a mechanical valve. He has end-stage renal disease. He has been dialyzed here. He has significant issues with cramping and anxiety on dialysis. I have given him a short prescription for Xanax which he feels works better than the Valium that he is on. He will discuss this with Dr. Rawls, his gas or water meter installer as an outpat ient. I have given him a total of 10 tabs. He also has hypertension. His blood pressures have been well controlled here with frequent dialysis, minoxidil, carvedilol, amlodipine. FOLLOWUP: 1. Dr. Jackson, he has an appointment tomorrow. 2. Dr. Rawls, his Cover Assembler as needed.\. DISPOSITION: He is discharged in stable condition. I have discussed all the above with him. BILLING: I spent more than 30 minutes on the day of discharge coordinating care. /[id number]/MODL
== END 2018-01-14 13:32 | disposition home or self-care (01) | DRG 314 ==
LOC: F2W 23:47
PROVIDERS: ADMIT Internal Medicine; ATTEND Internal Medicine
PROC: 5A1D70Z Performance of Urinary Filtration, Intermittent, Less than 6 Hours Per Day (ICD-10-PCS; 2018-01-12)
PROC: B245ZZ4 Ultrasonography of Left Heart, Transesophageal (ICD-10-PCS; principal; 2018-01-13)
PROC: 30233N1 Transfusion of Nonautologous Red Blood Cells into Peripheral Vein, Percutaneous Approach (ICD-10-PCS; 2018-01-13)
DX: T82.867A Thrombosis due to cardiac prosthetic devices, implants and grafts, initial encounter (principal); I13.2 Hypertensive heart and chronic kidney disease with heart failure and with stage 5 chronic kidney disease, or end stage renal disease; N18.6 End stage renal disease; I05.0 Rheumatic mitral stenosis; I50.9 Heart failure, unspecified; F41.8 Other specified anxiety disorders; G43.909 Migraine, unspecified, not intractable, without status migrainosus; I27.20 Pulmonary hypertension, unspecified; D63.1 Anemia in chronic kidney disease; E87.5 Hyperkalemia; E87.70 Fluid overload, unspecified; Z99.2 Dependence on renal dialysis; Z87.891 Personal history of nicotine dependence
CPT/HCPCS: 36415-PO; J0885; J1170; J1644; J1940; J2250; J2704; J3010; P9016; P9040

== ENCOUNTER → 2018-01-16 | Outpatient (CLI) | payer OTHER, MEDICAID | LOC: BHFA 13:00 | PROVIDERS: ATTEND Internal Medicine Cardiovascular Disease | DX: R06.02 Shortness of breath (principal); I38 Endocarditis, valve unspecified ==

== ENCOUNTER 2018-01-20 14:09 | Inpatient (IN) | payer OTHER, MEDICAID ==
--- NOTE | 2018-01-20 14:38 | CPEKG ---
Heart Rate: 87 RR Interval: 690 P-R Interval: 144 QRSD Interval: 80 QT Interval: 372 QTC Interval: 448 P Union Star: 35 QRS Union Star: -2 T Wave Union Star: 83 EKG Severity - NORMAL ECG - EKG Impression: SINUS RHYTHM Electronically Signed By: Mayra Moyer 20-Jan-2018 21:21:24
--- NOTE | 2018-01-20 15:43 | EDPHY ---
H & P Stated Complaint: cp, hypertension s/p HD Time Seen by Provider: 01/20/18 14:47 HPI/ROS: CHIEF COMPLAINT: Chest pressure HISTORY OF PRESENT ILLNESS: 27-year-old male with end-stage renal disease on dialysis presents with chest pressure. During dialysis this afternoon, he had fairly sudden onset of central chest pressure associated with elevated BP. No other associated symptoms and no alleviating or aggravating factors. Similar to discomfort earlier this month when he was admitted for congestive heart failure. During that admission echocardiogram revealed restricted motion of 2 of 3 leaflets of the artificial mitral valve and moderate to severe tricuspid regurgitation. Plan was for valvuloplasty versus mitral valve replacement. On outpatient follow-up, decision was made for valvuloplasty in 2 weeks. REVIEW OF SYSTEMS: complete 10 point ROS negative except at noted in the HPI - Personal History Current Tetanus/Diphtheria Vaccine: Yes Current Tetanus Diphtheria and Acellular Pertussis (TDAP): Yes - Medical/Surgical History Hx Asthma: No Hx Chronic Respiratory Disease: No Hx Diabetes: No Hx Cardiac Disease: Yes Hx Renal Disease: Yes Hx Cirrhosis: No Hx Alcoholism: No Hx HIV/AIDS: No Hx Splenectomy or Spleen Trauma: No Other PMH: PMHx: congenital lack of R kidney, failing L kidney dialysis, HTN, dental caries, chf, mitral valve prolapse w/replacement 07/2017, PNA. PSHx: chani, thoracentisis, av fistula in left distal forarm - Social History Smoking Status: Current every day smoker Alcohol Use: None Drug Use: None - Physical Exam Exam: General Appearance: Alert, pleasant Eyes: Pupils equal and round, no conjunctival pallor ENT, Mouth: Mucous membranes moist Neck: Normal inspection Respiratory: Lungs are clear to auscultation Cardiovascular: Regular rate and rhythm, 2/6 systolic murmur Gastrointestinal: Abdomen is soft and nontender Neurological: A&O, nonfocal exam Skin: Warm and dry, no rash Extremities: Nontender, no pedal edema Psychiatric: Mood and affect normal Constitutional: Initial Vital Signs Temperature (C) 36.9 C 01/20/18 14:14 Heart Rate 94 01/20/18 14:14 Respiratory Rate 16 01/20/18 14:14 Blood Pressure 165/110 H 01/20/18 14:14 O2 Sat (%) 93 01/20/18 14:14 O2 Delivery Mode Room Air Allergies/Adverse Reactions: No Known Allergies Allergy (Verified 01/20/18 14:13) Home Medications: Medication Instructions Recorded Aspirin EC [Aspirin EC 81 mg (*)] 81 mg PO DAILY 01/12/18 Carvedilol 25 mg PO BID 01/12/18 Diazepam [Valium 5 MG (*)] 5 mg PO TID PRN 01/12/18 Gabapentin [Neurontin 100 MG (*)] 100 mg PO HS 01/12/18 Minoxidil [Minoxidil 10 mg (*)] 10 mg PO BID 01/12/18 amLODIPine BESYLATE [Amlodipine 10 mg PO DAILY 01/12/18 Besylate] oxyCODONE HCL/ACETAMINOPHEN 2 each PO MWF PRN 01/12/18 [Percocet 10-325 mg Tablet] Medical Decision Making - Diagnostics EKG Interpretation: EKG interpreted by me reveals normal sinus rhythm, rate 87, ST segment elevation in lead III, no other ST or T-wave changes. Imaging Results: Chest X-Ray 01/20/18 15:36 Impression: Partial improvement in pulmonary edema from January 11, 2018. Imaging: I viewed and interpreted images myself ED Course/Re-evaluation: Old medical record reviewed, complex pt with multiple prior admissions. Difficult to control HTN, most urgent need is for mitral valve repair. Cardiac cath in 2017: no CAD. EKG today reveals no evidence of ischemia or dysrhythmia. BP slightly high, 160's/90's. CXR: improved from prior, no pneumonia or PTX. Consulted Dr. Conroy, will plan to admit. Consulted Dr. Johnson, will see pt in ED. Dr. Laney Johnson saw the pt. Query if cp secondary to elevated BP. The plan is to give the patient hydralazine 10 mg IV. If he feels better after hydralazine will discharge him home. Will plan to increase minoxidil to 20 mg twice a day as an outpt. After IV hydralazine, BP did not decrease. Pt continued to have cp. Dr. Conroy will admit for BP control, further eval. Differential Diagnosis: includes though not limited to PTX, pneumonia, ACS, dissection, PE - Data Points Laboratory Results: Laboratory Results 01/20/18 15:50 01/20/18 15:50 Medications Given: Discontinued Medications Acetaminophen (Tylenol) 650 mg PO Q4HRS PRN PRN Reason: Pain, Mild/Fever, Can Take PO Stop: 07/19/18 15:59 Last Admin: 01/20/18 19:05 Dose: 650 mg Carvedilol (Coreg) 25 mg PO BID BRANDY Stop: 07/19/18 20:59 Last Admin: 01/20/18 21:39 Dose: 25 mg Diazepam (Valium) 5 mg PO TID PRN PRN Reason: Anxiety Stop: 07/19/18 18:34 Last Admin: 01/20/18 21:40 Dose: 5 mg Furosemide (Lasix) 40 mg PO DAILY BRANDY Stop: 07/19/18 18:44 Last Admin: 01/20/18 19:04 Dose: 40 mg Gabapentin (Neurontin) 100 mg PO HS [facility] Stop: 07/19/18 20:59 Last Admin: 01/20/18 21:39 Dose: 100 mg Hydralazine HCl (Apresoline) 10 mg IVP EDNOW ONE Stop: 01/20/18 17:15 Last Admin: 01/20/18 17:45 Dose: 10 mg Minoxidil (Minoxidil) 20 mg PO BID [facility] Stop: 07/19/18 20:59 Last Admin: 01/20/18 21:39 Dose: 20 mg Oxycodone HCl (Oxycodone Ir) 5 - 10 mg PO Q4HRS PRN PRN Reason: Pain, Breakthrough Stop: 01/30/18 21:09 Last Admin: 01/20/18 21:39 Dose: 10 mg Oxycodone/Acetaminophen (Percocet 5/325) 1 tab PO ONCE ONE Stop: 01/20/18 16:10 Last Admin: 01/20/18 16:16 Dose: 1 tab Departure - Departure Disposition: [facility] Clinical Impression: Chest pain Qualifiers: Chest pain type: precordial pain Qualified Code(s): R07.2 - Precordial pain Condition: Fair
[2018-01-20] MEDS ORDERED: ACETAMINOPHEN 325 MG TAB PO PRN (16:00)
[2018-01-20] MEDS ORDERED: ONDANSETRON 4 MG/2 ML VIAL IVP PRN (16:00)
[2018-01-20] MEDS ORDERED: ONDANSETRON DISINTEGRATING 4 MG TAB PO PRN (16:00)
[2018-01-20 16:09] LABS: PLATELET COUNT 133 10^3/uL (150-400)
[2018-01-20] MEDS ORDERED: OXYCODONE/APAP 5/325 TAB PO ONE (16:09)
[2018-01-20] MEDS ORDERED: hydrALAZINE 20 MG/ML VIAL IVP ONE (17:14)
--- NOTE | 2018-01-20 18:09 | PDCARPN ---
Cardiology Progress Note Assessment/Plan: Assessment/plan: 27-year-old male with end-stage renal disease on hemodialysis , difficult to control hypertension. He is status post bioprosthetic mitral valve replacement in July 2017 with early degeneration of prosthetic valve, now with moderate to severe mitral stenosis. He recently had admission for diastolic heart failure and hypertension. He also has chronic anemia related to his renal disease. Seen today in the ER with chest discomfort, dyspnea, headache and hypertension. 1. Chest pain/shortness of breath: I think this is largely related to significant systemic hypertension, pulmonary hypertension that is related primarily to his bioprosthetic mitral valve stenosis. He will be given 10 mg of IV hydralazine in the ER. If his blood pressure and symptoms improved, he may be discharged on minoxidil at a higher dose of 20 mg twice daily. Would also consider oral Lasix as an outpatient. If hemodynamics do not improve, will require admission for blood pressure management. This is not appear to be acute coronary syndrome and he does not have coronary disease based on catheterization last year. 2. Hypertension. As above. Increase minoxidil. IV hydralazine now. Consider Lasix. Ultimately, the only way to control is blood pressure long-term will be with kidney transplant. 3. Mitral valve replacement with degeneration and now mitral valve stenosis: The plan is for mitral valvuloplasty later this month with surgical backup in case he requires a redo mitral valve replacement. If he does require repeat mitral valve replacement he would get a mechanical mitral valve. 4. End-stage renal disease on dialysis: He still does make some urine. He does not tolerate dialysis well. Consideration should be given to renal transplant. His outpatient [facility] [facility] is Dr. Rawls. 5. Anemia: This is chronic. No active bleeding. He does get Epogen. Epogen can cause hypertension headache however I think this is an important medication for him. He has previously gotten blood transfusions with some improvement in his fatigue and dyspnea, however his anemia always reverts back to baseline hematocrit in the low 20s. 01/20/18 18:05 Subjective: He describes a weight on his chest with some shortness of breath. Similar to previous admissions. He did get Epogen at dialysis today. He seems to have issues around the time of dialysis with chest pain, shortness of breath and headache. He does not have loss of vision but is seeing spots. Reviewed/Discussed With: hospitalist, other (Dr. Moyer) Objective: Vital Signs (8 Hrs) Pulse Resp BP Pulse Ox 01/20/18 17:40 84 19 167/110 H 97 01/20/18 17:35 97 01/20/18 16:17 96 20 155/101 H 92 Appears uncomfortable but no acute distress Regular rate and rhythm with 2/6 holosystolic murmur at the left lower sternal border and 1/4 diastolic murmur at the apex. Lungs clear bilaterally wheeze rhonchi or rales No lower extremity edema Chest x-ray mild pulmonary edema Result Diagrams: 01/20/18 15:50 01/20/18 15:50 EKG: Sinus rhythm with minimal lateral ST depression ICD10 Worksheet Patient Problems: Problems Problem Status Onset Dyspnea Acute ESRD on hemodialysis Acute Elevated troponin Acute Fever Acute Headache Acute Hypoxia Acute Pneumonia Acute Postoperative pneumothorax Acute Pulmonary edema Acute S/P mitral valve replacement with bioprosthetic valve Acute Tachycardia Acute Anemia Chronic CHF (congestive heart failure) Chronic ESRD (end stage renal disease) Chronic Hypertensive urgency Chronic Severe mitral regurgitation Chronic
[2018-01-20] MEDS ORDERED: DIAZEPAM 5 MG TAB PO PRN (18:35)
[2018-01-20] MEDS ORDERED: FUROSEMIDE 40 MG TAB PO SCH (18:45)
[2018-01-20] MEDS ORDERED: FUROSEMIDE 40 MG TAB ONE (19:02)
--- NOTE | 2018-01-20 19:04 | GHP ---
[f rep st] HISTORY AND PHYSICAL DATE OF ADMISSION: 01/20/2018 CHIEF COMPLAINT: Chest pressure and shortness of breath. HISTORY OF PRESENT ILLNESS: This is a 27-year-old man with a history of end-stage renal disease, on dialysis, as well as a mitral valve replacement with known mitral valve stenosis, who presents with w orsening shortness of breath and hypertension. He underwent dialysis today. He tells me that they t ook off 4 kilos. He is below his dry weight. During dialysis, he got a terrible headache, began fee ling short of breath, and had chest pressure. He tells me that this is exactly how he has felt the l ast few times that he has presented to the hospital. On his last hospitalization, he underwent more frequent dialysis, his blood pressure was better controlled on discharge, and he felt better. He con tinued to have a headache. Head CT was negative on his last hospitalization. He notes he has been c ompliant with all of his medications. He met with Dr. Jackson last week; they are planning a valvulo plasty on February 02. PAST MEDICAL/SURGICAL HISTORY: 1. Mitral valve replacement with now mitral valve stenosis, likely due to a thrombosed valve. 2. End-stage renal disease, on dialysis. 3. Hypertension. 4. Depression/anxiety. 5. Headache. MEDICATIONS: Please see medication reconciliation. ALLERGIES: No known drug allergies. FAMILY HISTORY: Reviewed; it is noncontributory. SOCIAL HISTORY: He quit smoking. Lives with his mother. He does not use drugs. REVIEW OF SYSTEMS: A 10-point review of systems is conducted and is negative, except per HPI. PHYSICAL EXAM: VITAL SIGNS: Blood pressure is 157/111, heart rate 84, respiration rate 20, saturati ng 99% on 2 L. He is afebrile. GENERAL: The patient is a pleasant man who appears somewhat uncomfo rtable. HEENT: Normocephalic, atraumatic. CARDIOVASCULAR: Regular rate and rhythm. No murmurs, r ubs, or gallops. PULMONARY: Exam shows mild basilar rales. He is not in any respiratory distress. ABDOMEN: Soft, nontender, nondistended. SKIN: No rash. : No [place]. NEUROLOGIC: Exam shows hi m to be alert and oriented x3. He is moving all extremities. PSYCHIATRIC: Exam shows normal mood a nd affect. LABS: Hemoglobin is 7.2, sodium 134, creatinine 5.1, potassium 3.9. BNP is 26,500. DATA: 1. I discussed this with both Dr. Johnson, as well as Dr. Moyer. Will plan to admit to the hospital. 2. I personally viewed and interpreted his chest x-ray. This shows diffuse bilateral pulmonary infi ltrates consistent with volume overload. 3. I personally viewed and interpreted his EKG. This shows sinus rhythm. There is nothing acutely ischemic. IMPRESSION/PLAN: 1. Dyspnea: Suspect that this is likely due to his hypertension with mitral valve prolapse and some mitral valve stenosis. His chest x-ray is wet, although it is not significantly different than muna r. We attempted to control his blood pressure in the ED unsuccessfully, and I think he should be bro ught into the hospital. I have discussed this with Ren[facility], who will plan an extra dialysis session to [facility]. For his blood pressure, will start Lasix 40 daily, as well as increase his minoxidil. Will continue his amlodipine and Coreg. 2. Headache: He gets migraines. He takes Percocet at home for this. We will continue this for now , although this is not an ideal headache medication. His head CT was negative on his last hospitaliz ation. 3. Mitral valve prolapse: Plan valvuloplasty, however, this cannot be coordinated until the end of the month, per Cardiology. This will be done by Dr. Jackson, as well as Dr. Farr. /[id number]/MODL
[2018-01-20] MEDS ORDERED: CARVEDILOL 25 MG TAB PO SCH (21:00)
[2018-01-20] MEDS ORDERED: MINOXIDIL 10 MG TAB PO SCH (21:00)
[2018-01-20] MEDS ORDERED: GABAPENTIN 100 MG CAP PO SCH (21:00)
[2018-01-20] MEDS ORDERED: oxyCODONE IR 5 MG TAB PO PRN (21:10)
[2018-01-20 23:23] VITALS: BP 148/97
[2018-01-21] MEDS ORDERED: ASPIRIN EC 81 MG TAB PO SCH (09:00)
--- NOTE | 2018-01-21 22:29 | ASDISCHSUM ---
Discharge Information Plan Status:Home with No Needs Medically Cleared to Leave:01/21/2018 Discharge Date:01/21/2018 CM D/C Disposition:Home, Routine, Self-Care ADT D/C Disposition: Projected Discharge Date:01/21/2018 Transportation at D/C: Discharge Delay Reason: Follow-Up Date:01/21/2018 Discharge Slot: Final Diagnosis: Placement Information Patient Contact Information Contact Name:JEFFERY Relationship:Mother Address:[address] [place] [address] [address] Work Phone: City:[place] Alternate Phone: [facility] [address]/Zip Code:[place] [address] Email: Financial Information Financial Class:Medicare Primary Plan Desc:MEDICARE INPATIENT Primary Plan Number:[id number] Secondary Plan Desc:MEDICAID [place] Secondary Plan Number:[id number] Assessment Information LACE LACE Length of stay for Answers: Less than 1 day current admission Acuity / Level of Answers: Yes Care: Did the patient have an inpatient admission? Comorbidities - select Answers: Congestive heart failure all that apply Moderate or severe liver or renal disease Other Notes: HTN; Hx of mitral valve replacement # of Emergency department Answers: 5-8 visits in the last 6 months Social determinants Answers: Mental health diagnosis (anxiety, depression, pers onality disorders, etc.) Score: 17 Date Signed: 01/21/2018 11:50 AM Electronically Signed By:Lindy Ibarra RN Case Management Discharge Plan Note Case Management Discharge Discharge Order Complete? Answers: Yes Patient to Obtain Answers: Independently Medications Discharge Comments Notes: 01/21/2018 Case Management Note Pt is well known to case management. Pt admitted for chest pressure. Pt to discharge independent with resumption of dialysis. There are no new case management d/c needs identified. Date Signed: 01/21/2018 11:52 AM Electronically Signed By:Lindy Ibarra RN Intervention Information
--- NOTE | 2018-01-21 22:30 | GPROG ---
[f rep st] PROGRESS NOTE CARDIOLOGY PROGRESS NOTE DATE OF SERVICE: 01/21/2018 SUBJECTIVE: The patient feels much better this morning. He feels back to his usual baseline. No ch est pain or dyspnea. Headache resolved. OBJECTIVE: VITAL SIGNS: Vitals reviewed. Blood pressure has been in the 150s over 90s to low 100s, which is improved compared with the ER yesterday. GENERAL: No acute distress. NECK: JVP less zulema n 10. HEART: Regular rate and rhythm with soft holosystolic murmur at the left lower sternal border and soft early diastolic murmur at the apex. LUNGS: Clear to auscultation bilaterally without whee ze, rhonchi, or rales. EXTREMITIES: No lower extremity edema. LABORATORY DATA: Labs reviewed and not repeated here. Hematocrit is improved to 24. ASSESSMENT AND PLAN: A 27-year-old male with end-stage renal disease on dialysis, difficult to manag e hypertension, chronic anemia related to his renal disease and history of bioprosthetic mitral valve replacement in July 2017. He has had early degeneration of this prosthetic valve, now with xchysrwp-ki-yileak mitral stenosis t hat has been complicated by several admissions for flash pulmonary edema in the setting of systemic h ypertension. He was admitted again with chest pressure through the emergency room and hypertension. Troponin negative. Blood pressure improved with oral Lasix and increasing minoxidil. 1. Flash pulmonary edema: He has improved with management of systemic hypertension and low-dose diu retics. He still does make some urine. Discussed in detail with Dr. Heard and Dr. Aguilar. Plan for his usual outpatient antihypertensives along with increasing minoxidil to 20 mg b.i.d. and addin g Lasix 40 mg. Dialysis per his usual schedule. 2. Hypertension: As above. 3. Mitral valve replacement with degeneration of the bioprosthesis and now crwfzpbc-po-zqevmk mitral valve stenosis: The plan is for mitral valvuloplasty later this month with surgical backup in case he requires a redo mitral valve replacement. If he does require repeat mitral valve replacement, he would get a mechanical mitral valve. 4. End-stage renal disease on dialysis: His outpatient enrober is Dr. Rawls. Will ultimatel y require renal transplant. 5. Anemia: Chronic. No active bleeding. He is on Epogen. He is stable for discharge from a cardiovascular standpoint. /[id number]/MODL
--- NOTE | 2018-01-21 22:31 | GDS ---
[f rep st] DISCHARGE SUMMARY DISCHARGE DIAGNOSES: 1. Dyspnea secondary to volume overload. 2. End-stage renal disease, on hemodialysis. 3. Mitral valve relapse with mitral valve stenosis and history of thrombosed valve. 4. Hypertension. 5. Depression and anxiety. 6. Chronic anemia. HISTORY: For details, please see the history and physical dated January 20, 2018. In brief, the patien thomas is a 27-year-old male with history of end-stage renal disease and mitral valve stenosis who has had a previous replacement but has developed thrombosed valve, presents to the emergency department with hypertension and shortness of breath. He was admitted for volume overload. HOSPITAL COURSE: The patient was admitted to the cardiac telemetry unit. He likely had a hypertensi ve urgency on arrival with blood pressure being discovered at 220 while on dialysis. With improvemen t of his blood pressure, his symptoms have resolved. His minoxidil was increased to 20 mg daily. La six was added 40 mg daily. He diuresed and his blood pressure has improved to 150/90 on the day of d ischarge. He is chest pain free, is not hypoxemic, and wishes to discharge home. Consideration was given to if epoetin may have contributed to his presentation as this apparently can cause worsening h ypertension and headaches. He did receive an EPO dose just prior to arrival. DISPOSITION: The patient is discharged home in stable condition. FOLLOWUP: 1. Nephrology tomorrow for dialysis and repeat renal function panel tomorrow as well as a CBC. 2. Shant Low MD, Cardiology, as there were plans for valve surgery later this month. DISCHARGE MEDICATIONS: Please see [facility] for completed outpatient medication list. New medication s on discharge include Lasix 40 mg p.o. daily, #30, no refills. Changed medication is minoxidil 20 m g p.o. b.i.d., increased from 10 mg b.i.d. The patient will continue all other outpatient medication s as previously prescribed. /[id number]/MODL
--- NOTE | 2018-01-22 10:09 | PDMN ---
Medical Necessity Medical necessity: est los>2mn for dyspnea, likely r/t HTN with MVP & MVS; admit for BP control and extra HD session 01/21/18; comorbid MVP w/valvuloplasty , unable to be coordinated until end of month; recent admission for CHF, ESRD; per order and H&P 01/20/18
--- NOTE | 2018-01-22 14:58 | SOAPPROG ---
[facility] Patient Name: CONRADO ESPINOSA Rpt#: [id number] Unit Number: [id number] Attending/ER Physician: Migel Conroy MD Patient Type: ADM IN Adm Date/Source: 01/20/18 EMR Discharge Date: Primary Carrier: MEDICARE INPATIENT SOAP NOTE SOAP Progress Note Assessment/Plan: Assessment: ESRD, full HD treatment yesterday Mitral stenosis after MV replacement in Jul 2017 HTN better today flash pulmonary edema, likely valve related, resolved AVF working fine Plan: no HD nedds today OK for dismissal when OK with others follow up outpatient HD usual day and time BP meds adjusted a bit, continue current meds/doses hopefully valvuloplasty at the end of January, if not successful, mechanical valve replacement will need kidney transplant after cardiac issues settled 01/21/18 09:14 Subjective: feels MUCH better today, wants to go home no cp, SOB much improved appetite good slept fine last night no abd or other pains spirits good, all things considered Objective: Vital Signs Temp Pulse Resp BP Pulse Ox 36.8 C 99 18 152/96 H 97 01/21/18 08:00 01/21/18 08:00 01/21/18 08:00 01/21/18 08:00 01/21/18 08:00 01/20/18 01/21/18 01/22/18 05:59 05:59 05:59 Intake Total 200 Balance 200 Physical Exam - Physical Exam General Appearance: alert, thin Respiratory: No rhonchi, No wheezing, No pleural rub Cardiac/Chest: regular rate, rhythm, gallop, JVD, diastolic murmur, systolic murmur, No edema, No friction rub Abdomen: normal bowel sounds, non-tender, soft Skin: warm/dry Extremities: other (fistula L wrist, good bruit and thrill) Neuro/Psych: alert, oriented x 3 ICD10 Worksheet Patient Problems: Problems Problem Status Onset Dyspnea Acute ESRD on hemodialysis Acute Elevated troponin Acute Fever Acute Headache Acute Hypoxia Acute Pneumonia Acute Postoperative pneumothorax Acute Pulmonary edema Acute S/P mitral valve replacement with bioprosthetic valve Acute Tachycardia Acute Anemia Chronic CHF (congestive heart failure) Chronic ESRD (end stage renal disease) Chronic Hypertensive urgency Chronic Severe mitral regurgitation Chronic *This report may have been compiled using a voice recognition system, and might contain typographical errors and blanks.* Caleb Aguilar MD 01/21/18919 <Electronically signed by Caleb Aguilar MD> 2 T: BEATRIZ 01/21/18912 CC:
== END 2018-01-21 13:16 | disposition home or self-care (01) | DRG 306 ==
LOC: F2W 19:54
PROVIDERS: ADMIT Student in an Organized Health Care Education/Training Program; ATTEND Student in an Organized Health Care Education/Training Program
DX: I34.1 Nonrheumatic mitral (valve) prolapse (principal); I12.0 Hypertensive chronic kidney disease with stage 5 chronic kidney disease or end stage renal disease; N18.6 End stage renal disease; I16.0 Hypertensive urgency; R06.00 Dyspnea, unspecified; F41.8 Other specified anxiety disorders; D53.9 Nutritional anemia, unspecified; G43.909 Migraine, unspecified, not intractable, without status migrainosus; Z99.2 Dependence on renal dialysis; Z95.3 Presence of xenogenic heart valve
CPT/HCPCS: 84484-PO; J0360

== ENCOUNTER 2018-01-24 07:27 | Observation (INO) | payer OTHER, MEDICAID ==
--- NOTE | 2018-01-24 07:40 | CPEKG ---
Heart Rate: 105 RR Interval: 571 P-R Interval: 144 QRSD Interval: 78 QT Interval: 340 QTC Interval: 450 P [place]: 55 QRS [place]: 15 T Wave [place]: 136 EKG Severity - ABNORMAL ECG - EKG Impression: SINUS TACHYCARDIA EKG Impression: ABNORMAL T, CONSIDER ISCHEMIA, LATERAL LEADS Electronically Signed By: Mayra Moyer 24-Jan-2018 15:24:00
--- NOTE | 2018-01-24 07:43 | EDPHY ---
H & P Time Seen by Provider: 01/24/18 07:31 HPI/ROS: CHIEF COMPLAINT: Shortness of breath HISTORY OF PRESENT ILLNESS: 27-year-old male with end-stage renal disease on dialysis presents with shortness of breath. Onset of shortness of breath 2 days ago, right after dialysis. SOB with any activity yesterday. Unable to do usual daily activities. He has home oxygen that he uses as needed and used oxygen yesterday without much relief. He was at dialysis this morning and during dialysis he developed increased shortness of breath, associated with chest pressure. Oxygen saturation was in the mid 80s. He was placed on oxygen , but continued to be short of breath so was transported here. On EMS arrival oxygen saturation was 85% on room air. He was given a DuoNeb, which helped. He was recently admitted for chest pressure. Chest pressure felt to be related to BP and non-ischemic; cardiac cath in 2017 negative for CAD. Medication changes during recent admission included increasing minoxidil to 20 mg twice a day and adding Lasix. No dietary indiscretion, recent illness or fever. REVIEW OF SYSTEMS: complete 10 point ROS negative except at noted in the HPI - Medical/Surgical History Hx Asthma: No Hx Chronic Respiratory Disease: No Hx Diabetes: No Hx Cardiac Disease: Yes Hx Renal Disease: Yes Hx Cirrhosis: No Hx Alcoholism: No Hx HIV/AIDS: No Hx Splenectomy or Spleen Trauma: No Other PMH: PMHx: congenital lack of R kidney, failing L kidney dialysis, HTN, dental caries, chf, mitral valve prolapse w/replacement 07/2017, PNA. PSHx: chani, thoracentisis, av fistula in left distal forarm - Social History Smoking Status: Current every day smoker Alcohol Use: None Drug Use: None - Physical Exam Exam: General Appearance: Alert, pleasant, on oxygen Eyes: Pupils equal and round, no conjunctival pallor or injection ENT, Mouth: Mucous membranes moist Neck: Normal inspection Respiratory: normal RR, scattered expiratory wheezing Cardiovascular: Regular rate and rhythm Gastrointestinal: Abdomen is soft and nontender Neurological: A&O, nonfocal exam Skin: Warm and dry Extremities: Normal inspection Psychiatric: Mood and affect normal Constitutional: Initial Vital Signs O2 Sat (%) 93 01/24/18 07:39 O2 Delivery Mode Room Air O2 (L/minute) 2 Allergies/Adverse Reactions: No Known Allergies Allergy (Verified 01/20/18 14:13) Home Medications: Medication Instructions Recorded Aspirin EC [Aspirin EC 81 mg (*)] 81 mg PO DAILY 01/12/18 Carvedilol 25 mg PO BID 01/12/18 Diazepam [Valium 5 MG (*)] 5 mg PO TID PRN 01/12/18 Gabapentin [Neurontin 100 MG (*)] 100 mg PO HS 01/12/18 Minoxidil [Minoxidil 10 mg (*)] 20 mg PO BID 01/12/18 amLODIPine BESYLATE [Amlodipine 10 mg PO DAILY 01/12/18 Besylate] oxyCODONE HCL/ACETAMINOPHEN 2 each PO MWF PRN 01/12/18 [Percocet 10-325 mg Tablet] Furosemide [Lasix 40 MG (*)] 40 mg PO DAILY 01/24/18 Medical Decision Making - Diagnostics EKG Interpretation: EKG interpreted by me reveals sinus tachycardia, rate 105, T-wave inversions in the lateral leads. Interpretation: Abnormal EKG Imaging Results: Chest X-Ray 01/24/18 07:39 Impression: Worsening interstitial edema/fluid overload and small right pleural effusion since 3 days prior. Imaging: I viewed and interpreted images myself ED Course/Re-evaluation: This dialysis patient presents with increasing shortness of breath, secondary to pulmonary edema, complicated by malfxn'ing mitral valve. Oxygen saturation is 94% on 2 L and his breathing is nonlabored. Stat EKG reveals sinus tachycardia with no evidence of ischemia. CXR: pulm edema. 0745: The hospitalist service was consulted for admission. 0750: consulted nephrology, Dr. Bernal will arrange for dialysis this morning. Pt stable throughout his ED stay. Tylenol and Morphine IV given for QUIGLEY. Differential Diagnosis: includes though not limited to ACS, PTX, pneumonia, dissection, pericardial tamponade, pleural effusion - Data Points Laboratory Results: Laboratory Results 01/24/18 07:30 01/24/18 07:30 Medications Given: Discontinued Medications Acetaminophen (Tylenol) 650 mg PO ONCE ONE Stop: 01/24/18 09:46 Last Admin: 01/24/18 13:45 Dose: 650 mg Hydrocodone Bitart/Acetaminophen (Maud 5/325) 1 tab PO Q4HRS PRN PRN Reason: Pain, Moderate Able to Take PO Stop: 02/03/18 15:13 Last Admin: 01/25/18 08:33 Dose: 1 tab Amlodipine Besylate (Norvasc) 10 mg PO DAILY BRANDY Stop: 07/24/18 08:59 Last Admin: 01/25/18 08:33 Dose: 10 mg Aspirin Buffered (Aspirin Ec) 81 mg PO DAILY BRANDY Stop: 07/24/18 08:59 Last Admin: 01/25/18 08:33 Dose: 81 mg Carvedilol (Coreg) 25 mg PO BID BRANDY Stop: 07/23/18 20:59 Last Admin: 01/25/18 08:33 Dose: 25 mg Diazepam (Valium) 5 mg PO TID PRN PRN Reason: Anxiety Stop: 07/23/18 14:59 Last Admin: 01/25/18 13:35 Dose: 5 mg Furosemide (Lasix) 40 mg PO DAILY BRANDY Stop: 07/24/18 08:59 Last Admin: 01/25/18 08:33 Dose: 40 mg Gabapentin (Neurontin) 100 mg PO HS BRANDY Stop: 07/23/18 20:59 Last Admin: 01/24/18 20:13 Dose: 100 mg Minoxidil (Minoxidil) 10 mg PO BID BRANDY Stop: 07/23/18 20:59 Last Admin: 01/25/18 08:33 Dose: 10 mg Morphine Sulfate (Morphine) 4 mg IV EDNOW ONE Stop: 01/24/18 10:56 Last Admin: 01/24/18 10:58 Dose: 4 mg Oxycodone HCl (Oxycodone Ir) 10 mg PO MWF PRN PRN Reason: Pain, Severe Able to Take PO Stop: 02/03/18 15:21 Last Admin: 01/24/18 20:14 Dose: 10 mg Oxycodone HCl (Oxycodone Ir) 5 mg PO ONCE ONE Stop: 01/25/18 15:01 Last Admin: 01/25/18 15:36 Dose: 5 mg Oxycodone HCl (Oxycodone Ir) 5 mg PO ONCE ONE Stop: 01/25/18 16:31 Last Admin: 01/25/18 16:57 Dose: 5 mg Oxycodone/Acetaminophen (Percocet 5/325) 2 tab PO MWF PRN PRN Reason: Pain, Severe Able to Take PO Stop: 02/03/18 15:21 Last Admin: 01/24/18 18:09 Dose: 2 tab Oxycodone/Acetaminophen (Percocet 5/325) 1 tab PO ONCE ONE Stop: 01/25/18 15:01 Last Admin: 01/25/18 15:35 Dose: 1 tab Oxycodone/Acetaminophen (Percocet 5/325) 1 tab PO ONCE ONE Stop: 01/25/18 16:31 Last Admin: 01/25/18 16:57 Dose: 1 tab Departure - Departure Disposition: [facility] Acute Clinical Impression: Pulmonary edema Qualifiers: Chronicity: acute Qualified Code(s): J81.0 - Acute pulmonary edema Condition: Fair
[2018-01-24 07:47] LABS: PLATELET COUNT 163 10^3/uL (150-400)
[2018-01-24] MEDS ORDERED: ACETAMINOPHEN 500 MG TAB PO ONE (09:32)
--- NOTE | 2018-01-24 09:33 | PDCONSULT ---
Try On [facility] Note: Assessment/Plan: ESRD: on HD MWF, ran for 1.5hrs today. - Will do HD later today. - Will plan an additional UF tomorrow. Hypervolemia: seems to be well controlled but pt still has some issues with dyspnea. Will plan for additional UF tomorrow to see if his symptoms can be further improved. Pt also on Lasix. Anemia: Hgb 7.2, likely would benefit from being transfused. Pt gets epo and iron per outpatient dialysis unit protocol. HTN: BP ok, continue home meds. Thank you for the interesting consult. Nephrology will continue to follow, please call if you have any additional questions or concerns. H & P Stated Complaint: Shortness of breath during dialysis Time Seen by Provider: 01/24/18 07:31 HPI/ROS: HPI: Mr. Alexander is a 27 yo M with h/o ESRD on HD MWF at [facility] under Dr. Rawls. He also has h/o MV replacement and is scheduled for valvular surgery on 02/05/18. Pt states that he has chronically been having problems with dyspnea and chest pain that have worsened since Saturday, last night was unable to sleep. He did get his regular HD on Saturday. He went to HD this am and about an hour in started to have worse chest pain, describes it as a squeezing feeling in his chest that makes it hard to breath. They increased his oxygen but he was still satting 85%, so his HD was stopped after 1.5hrs and he was sent in. He states that his pain is a little better now but still there. He is tired of feeling this way, glad he is getting surgery soon. ROS: positive per HPI, rest of 10-point ROS negative - Medical/Surgical History Hx Asthma: No Hx Chronic Respiratory Disease: No Hx Diabetes: No Hx Cardiac Disease: Yes Hx Renal Disease: Yes Hx Cirrhosis: No Hx Alcoholism: No Hx HIV/AIDS: No Hx Splenectomy or Spleen Trauma: No Other PMH: PMHx: congenital lack of R kidney, failing L kidney dialysis, HTN, dental caries, chf, mitral valve prolapse w/replacement 07/2017, PNA. PSHx: chani, thoracentisis, av fistula in left distal forarm - Family History Significant Family History: No pertinent family hx - Social History Smoking Status: Current every day smoker - Physical Exam Exam: General: alert and oriented, no acute distress Eyes; EOMI, PERRL OP: Clear, MMM Neck: supple, no thyromegaly CV: RRR, +2/4 dorsalis pedis pulses, no peripheral edema Resp: CTA bilat, nonlabored respirations on NC Abd: Soft, NT/ND Neuro: CN II-XII grossly intact, no asterixis Psych: cooperative, appropriate mood and affect Access: LUE AVF Constitutional: Initial Vital Signs O2 Sat (%) 93 01/24/18 07:39 O2 Delivery Mode Room Air O2 (L/minute) 2 Allergies/Adverse Reactions: No Known Allergies Allergy (Verified 01/20/18 14:13) Home Medications: Medication Instructions Recorded Aspirin EC [Aspirin EC 81 mg (*)] 81 mg PO DAILY 01/12/18 Carvedilol 25 mg PO BID 01/12/18 Diazepam [Valium 5 MG (*)] 5 mg PO TID PRN 01/12/18 Gabapentin [Neurontin 100 MG (*)] 100 mg PO HS 01/12/18 Minoxidil [Minoxidil 10 mg (*)] 10 mg PO BID 01/12/18 amLODIPine BESYLATE [Amlodipine 10 mg PO DAILY 01/12/18 Besylate] oxyCODONE HCL/ACETAMINOPHEN 2 each PO MWF PRN 01/12/18 [Percocet 10-325 mg Tablet] Furosemide [Lasix 40 MG (*)] 40 mg PO DAILY 01/24/18 Lab and Imaging 01/24/18 07:30 01/24/18 07:30 WBC 7.85 10^3/uL (3.80-9.50) 01/24/18 07:30 RBC 2.51 10^6/uL (4.40-6.38) L 01/24/18 07:30 Hgb 7.2 g/dL (13.7-17.5) L 01/24/18 07:30 Hct 21.6 % (40.0-51.0) L 01/24/18 07:30 MCV 86.1 fL (81.5-99.8) 01/24/18 07:30 MCH 28.7 pg (27.9-34.1) 01/24/18 07:30 MCHC 33.3 g/dL (32.4-36.7) 01/24/18 07:30 RDW 15.6 % (11.5-15.2) H 01/24/18 07:30 Plt Count 163 10^3/uL (150-400) 01/24/18 07:30 MPV 9.2 fL (8.7-11.7) 01/24/18 07:30 Neut % (Auto) 88.5 % (39.3-74.2) H 01/24/18 07:30 Lymph % (Auto) 6.8 % (15.0-45.0) L 01/24/18 07:30 [place] % (Auto) 2.9 % (4.5-13.0) L 01/24/18 07:30 Eos % (Auto) 1.4 % (0.6-7.6) 01/24/18 07:30 Baso % (Auto) 0.1 % (0.3-1.7) L 01/24/18 07:30 Nucleat RBC Rel Count 0.0 % (0.0-0.2) 01/24/18 07:30 Absolute Neuts (auto) 6.95 10^3/uL (1.70-6.50) H 01/24/18 07:30 Absolute Lymphs (auto) 0.53 10^3/uL (1.00-3.00) L 01/24/18 07:30 Absolute Monos (auto) 0.23 10^3/uL (0.30-0.80) L 01/24/18 07:30 Absolute Eos (auto) 0.11 10^3/uL (0.03-0.40) 01/24/18 07:30 Absolute Basos (auto) 0.01 10^3/uL (0.02-0.10) L 01/24/18 07:30 Absolute Nucleated RBC 0.00 10^3/uL (0-0.01) 01/24/18 07:30 Immature Gran % 0.3 % (0.0-1.1) 01/24/18 07:30 Seg Neutrophils % 92.0 % 01/24/18 07:30 Band Neutrophils % 0 % 01/24/18 07:30 Lymphocytes % 5.0 % 01/24/18 07:30 Monocytes % 1.0 % 01/24/18 07:30 Eosinophils % 2.0 % 01/24/18 07:30 Basophils % 0 % 01/24/18 07:30 Metamyelocytes % 0 % 01/24/18 07:30 Myelocytes % 0 % 01/24/18 07:30 Promyelocytes % 0 % 01/24/18 07:30 Blast Cells % 0 % 01/24/18 07:30 Immature Gran # 0.02 10^3/uL (0.00-0.10) 01/24/18 07:30 Absolute Seg Neuts 7.22 10^/uL (1.70-6.50) H 01/24/18 07:30 Absolute Band Neuts 0.00 10^3/uL (0.00-0.70) 01/24/18 07:30 Absolute Lymphocytes 0.39 10^3/uL (1.00-3.00) L 01/24/18 07:30 Absolute Monocytes 0.08 10^3/uL (0.30-0.80) L 01/24/18 07:30 Absolute Eosinophils 0.16 10^3/uL (0.03-0.40) 01/24/18 07:30 Absolute Basophils 0.00 10^3/uL (0.02-0.10) L 01/24/18 07:30 Absolute Metamyelocyte 0.00 10^3/mL (0.00-0.00) 01/24/18 07:30 Absolute Myelocytes 0.00 10^3/mL (0.00-0.00) 01/24/18 07:30 Absolute Promyelocytes 0.00 10^3/uL (0.00-0.00) 01/24/18 07:30 Absolute Plasma Cells 0.00 10^3/uL (0.00-0.00) 01/24/18 07:30 Absolute Blast Cells 0.00 10^3/uL (0.00-0.00) 01/24/18 07:30 Plasma Cells % 0 % 01/24/18 07:30 Platelet Estimate ADEQUATE (ADEQ) 01/24/18 07:30 Sodium 134 mEq/L (135-145) L 01/24/18 07:30 Potassium 3.8 mEq/L (3.3-5.0) 01/24/18 07:30 Chloride 96 mEq/L (97-110) L 01/24/18 07:30 Carbon Dioxide 30 mEq/l (22-31) 01/24/18 07:30 Anion Gap 8 mEq/L (8-16) 01/24/18 07:30 BUN 30 mg/dL (7-23) H 01/24/18 07:30 Creatinine 5.8 mg/dL (0.7-1.3) H 01/24/18 07:30 Estimated GFR 12 01/24/18 07:30 Glucose 95 mg/dL (70-100) 01/24/18 07:30 Calcium 9.8 mg/dL (8.5-10.4) 01/24/18 07:30
[2018-01-24] MEDS ORDERED: ACETAMINOPHEN 325 MG TAB PO ONE (09:45)
[2018-01-24] MEDS ORDERED: ACETAMINOPHEN 325 MG TAB ONE (13:44)
[2018-01-24] MEDS ORDERED: OXYCODONE HCL PO PRN (15:00)
[2018-01-24] MEDS ORDERED: ACETAMINOPHEN PO PRN (15:00)
[2018-01-24] MEDS ORDERED: ACETAMINOPHEN 325 MG TAB PO PRN (15:11)
[2018-01-24] MEDS ORDERED: ONDANSETRON 4 MG/2 ML VIAL IVP PRN (15:11)
[2018-01-24] MEDS ORDERED: ONDANSETRON DISINTEGRATING 4 MG TAB PO PRN (15:11)
[2018-01-24] MEDS ORDERED: HYDROCODONE/APAP 5/325 TAB PO PRN (15:14)
--- NOTE | 2018-01-24 15:18 | PDGENHP ---
History and Physical - Chief Complaint SOB - History of Present Illness 27-year-old male with end-stage renal disease on dialysis presents with shortness of breath. Onset of shortness of breath 2 days ago, right after dialysis. He was so short of breath yesterday that he just laid around his home. He has home oxygen that he uses as needed and use oxygen yesterday. He was at dialysis this morning and during dialysis he developed increased shortness of breath, associated with chest pressure. Oxygen saturation was in the mid 80s. He was placed on oxygen, but continued to be short of breath so was transported here. Chest pain resolved with improved oxygenation In the E.D. he was found to have volume overload Renal has been consulted he will have HD today He is no longer having chest pain. He is pain free. He is ambulating in [place]. He has not had a fever PMHx: congenital lack of R kidney, failing L kidney dialysis, HTN, dental caries , chf, mitral valve prolapse w/replacement 07/2017, PNA. PSHx: chani, thoracentisis, av fistula in left distal forarm Soc Hx: +daily tobacco use FmHx: non contributory Studies: EKG: sinus tach CXR: pulm congestion Hgb: 7.2 History Information - Allergies/Home Medication List Allergies/Adverse Reactions: No Known Allergies Allergy (Verified 01/20/18 14:13) Home Medications: Aspirin EC [Aspirin EC 81 mg (*)] 81 mg PO DAILY 01/12/18 [Last Taken 01/24/18] Carvedilol 25 mg PO BID 01/12/18 [Last Taken 01/24/18] Diazepam [Valium 5 MG (*)] 5 mg PO TID PRN 01/12/18 [Last Taken 01/23/18 16:00] Gabapentin [Neurontin 100 MG (*)] 100 mg PO HS 01/12/18 [Last Taken 01/23/18] Minoxidil [Minoxidil 10 mg (*)] 10 mg PO BID 01/12/18 [Last Taken 01/24/18] amLODIPine BESYLATE [Amlodipine Besylate] 10 mg PO DAILY 01/12/18 [Last Taken ] oxyCODONE HCL/ACETAMINOPHEN [Percocet 10-325 mg Tablet] 2 each PO MWF PRN [Last Taken 01/22/18] Furosemide [Lasix 40 MG (*)] 40 mg PO DAILY 01/24/18 [Last Taken 01/24/18] I have personally reviewed and updated: medical history, social history - Past Medical History CHF, ESRD Additional medical history: ESRD secondary to solitary kidney, on HD [facility]. CHF, history of mitral valve prolapse status post replacement with animal donor valve. Anemia of chronic kidney disease on Procrit - Surgical History Additional surgical history: LUE AVF creation. bioprosthetic MVR. Cholecystectomy - Family History Positive for: non-pertinent Additional family history: No family history of end-stage renal disease - Social History Smoking Status: Current every day smoker Alcohol Use: None Drug Use: None Additional social history: Reports he is currently living with his mother in [place], does not have any transportation beyond the local bus system. Cor status-full Review of Systems Review of Systems: ROS: 10pt was reviewed & negative except for what was stated in HPI & below Physical Exam Physical Exam: Temp Pulse Resp BP Pulse Ox 36.9 C 99 20 128/63 H 94 01/24/18 12:00 01/24/18 12:00 01/24/18 13:58 01/24/18 12:00 01/24/18 13:58 O2 (L/minute) 2 Constitutional: not in pain Eyes: EOMI Ears, Nose, Mouth, Throat: moist mucous membranes, hearing normal Cardiovascular: regular rate and rhythym, No edema Respiratory: reduced air movement Gastrointestinal: normoactive bowel sounds, soft, non-tender abdomen Skin: warm Neurologic: AAOx3 Psychiatric: interacting appropriately, not anxious, not encephalopathic Lymph, Heme, Immunologic: No petechiae Lab Data & Imaging Review 01/24/18 07:30 01/24/18 07:30 WBC 7.85 10^3/uL (3.80-9.50) 01/24/18 07:30 RBC 2.51 10^6/uL (4.40-6.38) L 01/24/18 07:30 Hgb 7.2 g/dL (13.7-17.5) L 01/24/18 07:30 Hct 21.6 % (40.0-51.0) L 01/24/18 07:30 MCV 86.1 fL (81.5-99.8) 01/24/18 07:30 MCH 28.7 pg (27.9-34.1) 01/24/18 07:30 MCHC 33.3 g/dL (32.4-36.7) 01/24/18 07:30 RDW 15.6 % (11.5-15.2) H 01/24/18 07:30 Plt Count 163 10^3/uL (150-400) 01/24/18 07:30 MPV 9.2 fL (8.7-11.7) 01/24/18 07:30 Neut % (Auto) 88.5 % (39.3-74.2) H 01/24/18 07:30 Lymph % (Auto) 6.8 % (15.0-45.0) L 01/24/18 07:30 [place] % (Auto) 2.9 % (4.5-13.0) L 01/24/18 07:30 Eos % (Auto) 1.4 % (0.6-7.6) 01/24/18 07:30 Baso % (Auto) 0.1 % (0.3-1.7) L 01/24/18 07:30 Nucleat RBC Rel Count 0.0 % (0.0-0.2) 01/24/18 07:30 Absolute Neuts (auto) 6.95 10^3/uL (1.70-6.50) H 01/24/18 07:30 Absolute Lymphs (auto) 0.53 10^3/uL (1.00-3.00) L 01/24/18 07:30 Absolute Monos (auto) 0.23 10^3/uL (0.30-0.80) L 01/24/18 07:30 Absolute Eos (auto) 0.11 10^3/uL (0.03-0.40) 01/24/18 07:30 Absolute Basos (auto) 0.01 10^3/uL (0.02-0.10) L 01/24/18 07:30 Absolute Nucleated RBC 0.00 10^3/uL (0-0.01) 01/24/18 07:30 Immature Gran % 0.3 % (0.0-1.1) 01/24/18 07:30 Seg Neutrophils % 92.0 % 01/24/18 07:30 Band Neutrophils % 0 % 01/24/18 07:30 Lymphocytes % 5.0 % 01/24/18 07:30 Monocytes % 1.0 % 01/24/18 07:30 Eosinophils % 2.0 % 01/24/18 07:30 Basophils % 0 % 01/24/18 07:30 Metamyelocytes % 0 % 01/24/18 07:30 Myelocytes % 0 % 01/24/18 07:30 Promyelocytes % 0 % 01/24/18 07:30 Blast Cells % 0 % 01/24/18 07:30 Immature Gran # 0.02 10^3/uL (0.00-0.10) 01/24/18 07:30 Absolute Seg Neuts 7.22 10^/uL (1.70-6.50) H 01/24/18 07:30 Absolute Band Neuts 0.00 10^3/uL (0.00-0.70) 01/24/18 07:30 Absolute Lymphocytes 0.39 10^3/uL (1.00-3.00) L 01/24/18 07:30 Absolute Monocytes 0.08 10^3/uL (0.30-0.80) L 01/24/18 07:30 Absolute Eosinophils 0.16 10^3/uL (0.03-0.40) 01/24/18 07:30 Absolute Basophils 0.00 10^3/uL (0.02-0.10) L 01/24/18 07:30 Absolute Metamyelocyte 0.00 10^3/mL (0.00-0.00) 01/24/18 07:30 Absolute Myelocytes 0.00 10^3/mL (0.00-0.00) 01/24/18 07:30 Absolute Promyelocytes 0.00 10^3/uL (0.00-0.00) 01/24/18 07:30 Absolute Plasma Cells 0.00 10^3/uL (0.00-0.00) 01/24/18 07:30 Absolute Blast Cells 0.00 10^3/uL (0.00-0.00) 01/24/18 07:30 Plasma Cells % 0 % 01/24/18 07:30 Platelet Estimate ADEQUATE (ADEQ) 01/24/18 07:30 Sodium 134 mEq/L (135-145) L 01/24/18 07:30 Potassium 3.8 mEq/L (3.3-5.0) 01/24/18 07:30 Chloride 96 mEq/L (97-110) L 01/24/18 07:30 Carbon Dioxide 30 mEq/l (22-31) 01/24/18 07:30 Anion Gap 8 mEq/L (8-16) 01/24/18 07:30 BUN 30 mg/dL (7-23) H 01/24/18 07:30 Creatinine 5.8 mg/dL (0.7-1.3) H 01/24/18 07:30 Estimated GFR 12 01/24/18 07:30 Glucose 95 mg/dL (70-100) 01/24/18 07:30 Calcium 9.8 mg/dL (8.5-10.4) 01/24/18 07:30 Assessment & Plan Assessment: #Pulmonary Edema #Moderate-Severe Mitral stenosis with hx of Bioprosthetic valve replacement Jul 2017 with early degeneration -scheduled for valvular surgery on 02/05 #ESRD -will have HD today -UF tomorrow #Acute on chronic anemia -can likely benefit from PRBC transfusion during dialysis per Nephrology #HTN -cont home meds Plan: per above He does not have any active chest pain He is ambulating in rodr[place]es HD today
[2018-01-24] MEDS ORDERED: OXYCODONE/APAP 5/325 TAB PO PRN ×2 (15:22→15:30)
[2018-01-24] MEDS ORDERED: oxyCODONE IR 5 MG TAB PO PRN ×2 (15:22→15:30)
[2018-01-24] MEDS: DIAZEPAM 5 MG TAB PO PRN (15:37)
[2018-01-24] MEDS: MINOXIDIL 10 MG TAB PO SCH (20:11)
[2018-01-24] MEDS: CARVEDILOL 25 MG TAB PO SCH (20:13)
[2018-01-24] MEDS ORDERED: GABAPENTIN 100 MG CAP PO SCH (21:00)
[2018-01-25 04:34] LABS: PLATELET COUNT 131 10^3/uL (150-400)
--- NOTE | 2018-01-25 07:56 | HOSPPROG ---
Hospitalist Progress Note Assessment/Plan: #Pulmonary Edema #Moderate-Severe Mitral stenosis with hx of Bioprosthetic valve replacement Jul 2017 with early degeneration -scheduled for valvular surgery on 02/05 #ESRD -will have HD today -UF tomorrow #Acute on chronic anemia -acute drop overnight -will get one unit after transfusion #HTN -cont home meds Plan: per above He does not have any active chest pain He is ambulating in rodr[place]es UF today Transfusion today Dispo: home today after UF vs keeping overnight pending clinical course and UF. Will defer to Nephrology Subjective: drop in Hgb. Had HD yesterday. Will get UF today. no cp. Objective: Vital Signs Temp Pulse Resp BP Pulse Ox 36.8 C 93 19 145/78 H 96 01/25/18 07:24 01/25/18 07:24 01/25/18 07:24 01/25/18 07:24 01/25/18 07:24 Laboratory Results 01/25/18 03:02 01/25/18 03:02 01/24/18 01/25/18 01/26/18 05:59 05:59 05:59 Intake Total 225 Output Total 1999 Balance -1775 - Physical Exam Constitutional: no apparent distress, not in pain Eyes: PERRL, EOMI Ears, Nose, Mouth, Throat: moist mucous membranes, hearing normal Cardiovascular: regular rate and rhythym, No edema Respiratory: no respiratory distress, no rales or rhonchi Skin: warm Neurologic: AAOx3 Psychiatric: interacting appropriately Lymph, Heme, Immunologic: No petechiae ICD10 Worksheet Patient Problems: Problems Problem Status Onset Dyspnea Acute Pulmonary edema Acute Chest pain Acute ESRD on hemodialysis Acute Elevated troponin Acute Fever Acute Headache Acute Hypoxia Acute Pneumonia Acute Postoperative pneumothorax Acute S/P mitral valve replacement with bioprosthetic valve Acute Tachycardia Acute Anemia Chronic CHF (congestive heart failure) Chronic ESRD (end stage renal disease) Chronic Hypertensive urgency Chronic Severe mitral regurgitation Chronic
[2018-01-25] MEDS: DIAZEPAM 5 MG TAB PO PRN ×2 (08:23→13:35)
[2018-01-25] MEDS: CARVEDILOL 25 MG TAB PO SCH (08:33)
[2018-01-25] MEDS: MINOXIDIL 10 MG TAB PO SCH (08:33)
[2018-01-25] MEDS ORDERED: FUROSEMIDE 40 MG TAB PO SCH (09:00)
[2018-01-25] MEDS ORDERED: ASPIRIN EC 81 MG TAB PO SCH (09:00)
--- NOTE | 2018-01-25 14:54 | ASMTCMCOM ---
CM Note CM Note Notes: Pt admitted with pulmonary edema. Hx of a recent bioprosthetic valve replacement in 07/28 with another scheduled valvular surgery on 02/05/18. Pt also has hx of CHF & ESRD; receives HD at [facility] in [place] M//. Pt has had several recent admissions to [facility]. CM has provided pt with resources in the past including info on [place] [facility]. Pt normally resides at home with his mother. PT/OT not ordered. Spoke with RN. Anticipate dc home when medically stable. CM will follow. Date Signed: 01/25/2018 02:54 PM Electronically Signed By:Michelle Sherman RN
[2018-01-25] MEDS ORDERED: OXYCODONE/APAP 5/325 TAB PO ONE ×2 (15:00→16:30)
[2018-01-25] MEDS ORDERED: oxyCODONE IR 5 MG TAB PO ONE ×2 (15:00→16:30)
[2018-01-25 15:57] VITALS: BP 157/84
--- NOTE | 2018-01-26 07:27 | PDDCSUM ---
Discharge Summary Discharge Summary: HPI/Hospital Course: This is a 27 yo male with ESRD who was sent to the ED from Dialysis due to hypoxemia and chest pain. The patient was found to have pulmonary edema. He was admitted and HD was started. He was supposed to get UF the following the day, but he recovered back to baseline prior to discharge. As UF could not be arranged for early in the day, the patient was d/c home. His next HD is on Saturday. Nephrology was consulted and they were ok with the discharge. DDX #Pulmonary Edema #Moderate-Severe Mitral stenosis with hx of Bioprosthetic valve replacement Jul 2017 with early degeneration -scheduled for valvular surgery on 02/05 #ESRD -will have HD today -UF tomorrow #Acute on chronic anemia -He required one unit PRBC transfusion on the day of discharge #HTN -cont home meds Exam: see PN from the day of discharge Meds: no new meds were started F/U: the pt will cont with his HD schedule which is M/W/F Total time spent on d/c is 35 mins
--- NOTE | 2018-01-26 10:13 | ASDISCHSUM ---
Discharge Information Plan Status:Home with No Needs Medically Cleared to Leave: Discharge Date:01/25/2018 05:00 PM CM D/C Disposition:Home, Routine, Self-Care ADT D/C Disposition:Home, Routine, Self-Care Projected Discharge Date:01/25/2018 05:00 PM Transportation at D/C:Family Discharge Delay Reason: Follow-Up Date:01/25/2018 05:00 PM Discharge Slot: Final Diagnosis: Placement Information Patient Contact Information Contact Name:JEFFERY Relationship:Mother Address:[address] Work Phone: City:[place] Alternate Phone: [facility]/Zip Code:[place] [address] Email: Financial Information Financial Class:Medicare Primary Plan Desc:MEDICARE OUTPATIENT Primary Plan Number:[id number] Secondary Plan Desc:MEDICAID [place] Secondary Plan Number:[id number] Assessment Information [facility] CM Progress Note CM Note CM Note Notes: Pt admitted with pulmonary edema. Hx of a recent bioprosthetic valve replacement in 07/28 with another scheduled valvular surgery on 02/05/18. Pt also has hx of CHF & ESRD; receives HD at [facility] in [place] M//. Pt has had several recent admissions to [facility]. has provided pt with resources in the past including info on [employer]. Pt normally resides at home with his mother. PT/OT not ordered. Spoke with RN. Anticipate dc home when medically stable. CM will follow. Date Signed: 01/25/2018 02:54 PM Electronically Signed By:Michelle Sherman RN Intervention Information
== END 2018-01-25 17:00 | disposition home or self-care (01) ==
LOC: EDUNIT# → F2W 14:00
PROVIDERS: ADMIT Family Medicine; ATTEND Family Medicine
PROC: 5A1D70Z Performance of Urinary Filtration, Intermittent, Less than 6 Hours Per Day (ICD-10-PCS; principal; 2018-01-24)
PROC: 30233N1 Transfusion of Nonautologous Red Blood Cells into Peripheral Vein, Percutaneous Approach (ICD-10-PCS; 2018-01-24)
DX: J81.0 Acute pulmonary edema (principal); I34.2 Nonrheumatic mitral (valve) stenosis; T82.09XA Other mechanical complication of heart valve prosthesis, initial encounter; E87.70 Fluid overload, unspecified; N18.6 End stage renal disease; I13.2 Hypertensive heart and chronic kidney disease with heart failure and with stage 5 chronic kidney disease, or end stage renal disease; Q60.0 Renal agenesis, unilateral; D63.1 Anemia in chronic kidney disease; I50.9 Heart failure, unspecified; K02.9 Dental caries, unspecified; F41.9 Anxiety disorder, unspecified; F32.9 Major depressive disorder, single episode, unspecified; F17.210 Nicotine dependence, cigarettes, uncomplicated; G43.909 Migraine, unspecified, not intractable, without status migrainosus; Z95.3 Presence of xenogenic heart valve; Z99.2 Dependence on renal dialysis; Z79.82 Long term (current) use of aspirin
CPT/HCPCS: 71046; 93005; 99285; G0378; J2270; P9016; P9040

== ENCOUNTER 2018-01-27 21:04 | Inpatient (IN) | payer OTHER, MEDICAID ==
--- NOTE | 2018-01-27 21:21 | CPEKG ---
Heart Rate: 124 RR Interval: 484 P-R Interval: 132 QRSD Interval: 76 QT Interval: 312 QTC Interval: 448 P Randle: 69 QRS Randle: 40 T Wave Randle: 137 EKG Severity - ABNORMAL ECG - EKG Impression: SINUS TACHYCARDIA EKG Impression: ABNORMAL T, CONSIDER ISCHEMIA, LATERAL LEADS Electronically Signed By: Mary Carlisle 28-Jan-2018 04:43:19
--- NOTE | 2018-01-27 21:35 | EDPHY ---
HPI/HX/ROS/PE/MDM Narrative: CHIEF COMPLAINT: Chest pain HISTORY OF PRESENT ILLNESS: The patient is a 27 y/o male with a history of end-stage renal disease and mitral valve replacement (07/2017) complaining of chest pain and shortness of breath onset yesterday. On 01/25/18, 2 days ago, the patient was discharged from this hospital after being admitted for volume overload. Last night, the patient developed a fever of 102 degrees and chest pain associated with shortness of breath and coughing up yellow sputum. Today the patient went to hemodialysis and had 3.2 kilos removed, which is typical. He believes he is under his dry weight. His heart rate is usually in the 120's during dialysis. After the dialysis the patient's symptoms of dyspnea worsened. When he returned home, he started using his supplemental oxygen which he usually only uses at night. Currently it feels like someone is squeezing his heart, he is short of breath and has a headache. He took Tylenol and Aleve for his symptoms at 20:45. On 02/05/18 he is scheduled for a heart valve replacement. Denies tobacco or alcohol use; admits to vaping marijuana. Reports SOB is worse with laying flat. No palpitations, vomiting, diarrhea, urinary complaints, lightheadedness. REVIEW OF SYSTEMS: Aside from elements discussed in the HPI, a comprehensive 10-point review of systems was reviewed and is negative. PAST MEDICAL HISTORY: End-stage renal disease, congenital lack of right kidney, failing left kidney on dialysis, hypertension, dental caries, CHF, mitral valve prolapse w/replacement 07/2017, pneumonia, cholecystectomy, thoracentesis, av fistula in left distal forearm SOCIAL HISTORY: Lives in [place], single, not employed VITAL SIGNS: Reviewed by me GENERAL: Slightly domingo appearing, pleasant. HEENT: Atraumatic. Eyes: Mild bilateral icterus, no injection. Mouth: moist mucous membranes. No erythema or lesions. Neck: supple with no adenopathy. LUNGS: Scattered rhonchi and wheezes on the left, no rales. CARDIAC: Tachycardic with high-pitched systolic murmur, no JVD, no rubs or gallops. ABDOMEN: Soft, nontender, nondistended, bowel sounds normal. BACK: No CVA tenderness. EXTREMITIES: No trauma. No edema. Range of motion is normal throughout. NEURO: Alert and oriented, grossly nonfocal. SKIN: Warm and dry, no rash. PSYCHIATRIC: Normal mentation, no agitation. Portions of this note were transcribed by a medical insurance biller. I personally performed a history, physical exam, medical decision making, and confirmed accuracy of information the transcribed note. ED Course: The patient is a 27 y/o male with a history of end-stage renal disease and mitral valve replacement (07/2017) presenting with chest pain and shortness of breath onset yesterday. These symptoms worsened during his dialysis treatment today. On exam the patient has scattered rhonchi and wheezes on the left, is tachycardic with a high-pitched systolic murmur, is domingo appearing with mild bilateral conjunctival icterus. Labs, EKG, and chest x-ray ordered. 2118: 12-LEAD EKG: Please see the full report in [facility]. My interpretation: Sinus tachycardia with lateral t wave changes suggestive of ischemia. 2209: I reviewed patient's chest x-ray; radiologist reading still pending. 2211: Reassessed patient and discussed x-ray and EKG findings. I have discussed plan for admission, which he is comfortable with. Procedure: Limited transthoracic echocardiogram. A limited transthoracic echocardiogram was performed and interpreted by myself for pericardial effusion. Limited transthoracic echocardiogram: The pericardium was visualized and found to be positive for trace pericardial fluid. The procedure was interpreted and performed by myself, Dr. Khan. Source of patient's fever not clear. 3 sets blood cultures ordered as patient with known valvular issue. SOB is worse when after dialysis; patient may be very volume dependent as his MR worsens. 500 cc of fluid administered. Significantly anemic as well; will provide 1 unit blood. CXR with persistant pulmonary edema. Patient presented to the Emergency Department with a suspected infection found to be possible pneumonia vs endocarditis and did met criteria for sepsis defined as: Temperature greater than 38.3, HR greater than 90, RR greater than 20 or hypoxic. Patient did not met criteria for severe sepsis and did NOT have demonstrate any of the following characteristics: Lactic acid greater than 2, INR greater than 1.5, Platelets less than 100,000, bilirubin greater than 2, SBP less than 90 or MAP less than 65, need for intubation or PPV. 2225: Consulted with hospitalist service, Dr. Seymour accepts admission of this patient. 500mL IV NS and 4mg IV Morphine administered. MDM: Differential diagnosis for the patient's shortness of breath was considered including but not limited to pulmonary infectious processes, volume overload, severe MR, infection, pulmonary emboli, pulmonary edema, congestive heart failure, and cardiac causes. - Data Points Imaging Results: Impression: Similar pattern to 3 days prior. Diffuse interstitial edema and right pleural effusion. Bronchopneumonia and pneumonitis versus fluid overload. Dictated By: Allen Peña MD Imaging: I viewed and interpreted images myself Laboratory Results: Laboratory Results 01/27/18 21:28 01/27/18 21:28 01/27/18 01/27/18 01/27/18 21:49 21:28 21:28 WBC RBC Hgb Hct MCV MCH MCHC RDW Plt Count MPV Neut % (Auto) Lymph % (Auto) [place] % (Auto) Eos % (Auto) Baso % (Auto) Nucleat RBC Rel Count Absolute Neuts (auto) Absolute Lymphs (auto) Absolute Monos (auto) Absolute Eos (auto) Absolute Basos (auto) Absolute Nucleated RBC Immature Gran % Immature Gran # Platelet Estimate Polychromasia Microcytic Cells Smear Review By PT 14.8 SEC SEC (12.0-15.0) INR 1.14 (0.83-1.16) APTT 37.2 SEC SEC (23.0-38.0) VBG Lactic Acid 0.8 mmol/L mmol/L (0.7-2.1) Sodium 135 mEq/L mEq/L (135-145) Potassium 4.3 mEq/L mEq/L (3.3-5.0) Chloride 95 mEq/L L mEq/L (97-110) Carbon Dioxide 26 mEq/l mEq/l (22-31) Anion Gap 14 mEq/L mEq/L (8-16) BUN 38 mg/dL H mg/dL (7-23) Creatinine 6.6 mg/dL H mg/dL (0.7-1.3) Estimated GFR 10 Glucose 91 mg/dL mg/dL (70-100) Calcium 9.8 mg/dL mg/dL (8.5-10.4) Total Bilirubin 1.8 mg/dL H mg/dL (0.1-1.4) 01/27/18 21:28 WBC 6.99 10^3/uL 10^3/uL (3.80-9.50) RBC 2.30 10^6/uL L 10^6/uL (4.40-6.38) Hgb 6.6 g/dL L g/dL (13.7-17.5) Hct 19.4 % L % (40.0-51.0) MCV 84.3 fL fL (81.5-99.8) MCH 28.7 pg pg (27.9-34.1) MCHC 34.0 g/dL g/dL (32.4-36.7) RDW 15.0 % % (11.5-15.2) Plt Count 194 10^3/uL 10^3/uL (150-400) MPV 9.3 fL fL (8.7-11.7) Neut % (Auto) 83.4 % H % (39.3-74.2) Lymph % (Auto) 10.7 % L % (15.0-45.0) [place] % (Auto) 3.4 % L % (4.5-13.0) Eos % (Auto) 1.9 % % (0.6-7.6) Baso % (Auto) 0.3 % % (0.3-1.7) Nucleat RBC Rel Count 0.0 % % (0.0-0.2) Absolute Neuts (auto) 5.83 10^3/uL 10^3/uL (1.70-6.50) Absolute Lymphs (auto) 0.75 10^3/uL L 10^3/uL (1.00-3.00) Absolute Monos (auto) 0.24 10^3/uL L 10^3/uL (0.30-0.80) Absolute Eos (auto) 0.13 10^3/uL 10^3/uL (0.03-0.40) Absolute Basos (auto) 0.02 10^3/uL 10^3/uL (0.02-0.10) Absolute Nucleated RBC 0.00 10^3/uL 10^3/uL (0-0.01) Immature Gran % 0.3 % % (0.0-1.1) Immature Gran # 0.02 10^3/uL 10^3/uL (0.00-0.10) Platelet Estimate ADEQUATE (ADEQ) Polychromasia 1+ H Microcytic Cells 1+ H Smear Review By Pending PT INR APTT VBG Lactic Acid Sodium Potassium Chloride Carbon Dioxide Anion Gap BUN Creatinine Estimated GFR Glucose Calcium Total Bilirubin Medications Given: Sodium Chloride (Ns) 500 mls @ 1,000 mls/hr IV EDNOW ONE PRN Reason: Protocol Stop: 01/27/18 22:59 Last Admin: 01/27/18 22:35 Dose: 500 mls Discontinued Medications Sodium Chloride (Ns) 1,000 mls @ 0 mls/hr IV ONCE ONE; Wide Open PRN Reason: Protocol Stop: 01/27/18 22:25 Last Admin: 01/27/18 22:36 Dose: Not Given General Time Seen by Provider: 01/27/18 21:32 Initial Vital Signs: Initial Vital Signs Temperature (C) 38 C 01/27/18 21:07 Heart Rate 131 H 01/27/18 21:07 Respiratory Rate 20 01/27/18 21:07 Blood Pressure 149/91 H 01/27/18 21:07 O2 Sat (%) 89 L 01/27/18 21:07 O2 Delivery Mode Nasal Cannula O2 (L/minute) 2 Allergies/Adverse Reactions: No Known Allergies Allergy (Verified 01/27/18 21:11) Home Medications: Medication Instructions Recorded Aspirin EC [Aspirin EC 81 mg (*)] 81 mg PO DAILY 01/12/18 Carvedilol 25 mg PO BIDMEAL 01/12/18 Diazepam [Valium 5 MG (*)] 5 mg PO TID PRN 01/12/18 Gabapentin [Neurontin 100 MG (*)] 100 mg PO HS 01/12/18 Minoxidil [Minoxidil 10 mg (*)] 20 mg PO BIDMEAL 01/12/18 amLODIPine BESYLATE [Amlodipine 10 mg PO DAILY 01/12/18 Besylate] oxyCODONE HCL/ACETAMINOPHEN 2 each PO MWF PRN 01/12/18 [Percocet 10-325 mg Tablet] Furosemide [Lasix 40 MG (*)] 40 mg PO DAILY 01/24/18 Departure - Departure Disposition: [facility] Clinical Impression: Shortness of breath, Tachycardia, End stage renal disease Chest pain Qualifiers: Chest pain type: chest pain on breathing Qualified Code(s): R07.1 - Chest pain on breathing Fever Qualifiers: Fever type: due to other condition Qualified Code(s): R50.81 - Fever presenting with conditions classified elsewhere Condition: Fair Report Scribed for: Mirta Khan Report Scribed by: Ophelia Weaver Date of Report: 01/27/18 Time of Report: 21:35
[2018-01-27 21:54] LABS: PLATELET COUNT 194 10^3/uL (150-400)
[2018-01-27 22:03] LABS: INR 1.14 (0.83-1.16); PROTIME(PATIENT) 14.8 SEC (12.0-15.0)
[2018-01-27] MEDS ORDERED: NS 1,000 ML IV ONE (22:24)
[2018-01-27] MEDS ORDERED: NS 500 ML IV ONE (22:30)
[2018-01-27] MEDS ORDERED: ONDANSETRON DISINTEGRATING 4 MG TAB PO PRN (22:37)
[2018-01-27] MEDS ORDERED: ONDANSETRON 4 MG/2 ML VIAL IVP PRN (22:37)
[2018-01-27] MEDS ORDERED: IBUPROFEN 600 MG TAB PO ONE ×2 (23:04→23:10)
--- NOTE | 2018-01-28 00:25 | PDGENHP ---
History and Physical - Chief Complaint Fever, SOB - History of Present Illness 27 yo M w/ hx of ESRD, hx of bMVR with early degeneration and recurrent MS, and chronic anemia presents with shortness of breath, fever, and fatigue. Patient was discharged from the hospital on 01/26 after treatment of similar symptoms. He received a session of HD and a unit of blood and felt improved so he went home. He felt well at time of discharge but began to feel poorly shortly after. He states his symptoms worsened significantly after his HD session today. He is at or slightly below his usual dry weight of 68 kg. In the ED he was noted to be febrile, tachycardic, and with persistent pulmonary edema. His anemia is also acutely worsened from prior. History Information - Allergies/Home Medication List Allergies/Adverse Reactions: No Known Allergies Allergy (Verified 01/27/18 21:11) Home Medications: Aspirin EC [Aspirin EC 81 mg (*)] 81 mg PO DAILY 01/12/18 [Last Taken 01/24/18] Carvedilol 25 mg PO BID 01/12/18 [Last Taken 01/24/18] Diazepam [Valium 5 MG (*)] 5 mg PO TID PRN 01/12/18 [Last Taken 01/23/18 16:00] Gabapentin [Neurontin 100 MG (*)] 100 mg PO HS 01/12/18 [Last Taken 01/23/18] Minoxidil [Minoxidil 10 mg (*)] 20 mg PO BID 01/12/18 [Last Taken 01/24/18 08:00 ] amLODIPine BESYLATE [Amlodipine Besylate] 10 mg PO DAILY 01/12/18 [Last Taken ] oxyCODONE HCL/ACETAMINOPHEN [Percocet 10-325 mg Tablet] 2 each PO MWF PRN [Last Taken 01/22/18] Furosemide [Lasix 40 MG (*)] 40 mg PO DAILY 01/24/18 [Last Taken 01/24/18] I have personally reviewed and updated: family history, medical history - Past Medical History CHF, ESRD Additional medical history: ESRD secondary to solitary kidney, on HD [facility]. CHF, history of mitral valve prolapse status post replacement with animal donor valve. Anemia of chronic kidney disease on Procrit - Surgical History Additional surgical history: LUE AVF creation. bioprosthetic MVR. Cholecystectomy - Family History Additional family history: No family history of end-stage renal disease - Social History Smoking Status: Current every day smoker Additional social history: Reports he is currently living with his mother in [place], does not have any transportation beyond the local bus system. Cor status-full Review of Systems Review of Systems: ROS: 10pt was reviewed & negative except for what was stated in HPI & below Physical Exam Physical Exam: Temp Pulse Resp BP Pulse Ox 37.7 C 126 H 16 153/80 H 93 01/27/18 23:40 01/27/18 23:40 01/27/18 23:40 01/27/18 23:40 01/27/18 23:40 O2 (L/minute) 2 Constitutional: appears nourished, uncomfortable Eyes: PERRL, EOMI Ears, Nose, Mouth, Throat: moist mucous membranes, no oral mucosal ulcers Cardiovascular: systolic murmur, tachycardia Respiratory: no respiratory distress, inspiratory crackles Gastrointestinal: normoactive bowel sounds, soft, non-tender abdomen Skin: warm, normal color Musculoskeletal: full muscle strength, no muscle tenderness Neurologic: AAOx3, CN II-XII Intact Psychiatric: interacting appropriately, not anxious Lab Data & Imaging Review 01/27/18 21:28 01/27/18 21:28 WBC 6.99 10^3/uL (3.80-9.50) 01/27/18 21:28 RBC 2.30 10^6/uL (4.40-6.38) L 01/27/18 21:28 Hgb 6.6 g/dL (13.7-17.5) L 01/27/18 21:28 Hct 19.4 % (40.0-51.0) L 01/27/18 21:28 MCV 84.3 fL (81.5-99.8) 01/27/18 21:28 MCH 28.7 pg (27.9-34.1) 01/27/18 21:28 MCHC 34.0 g/dL (32.4-36.7) 01/27/18 21:28 RDW 15.0 % (11.5-15.2) 01/27/18 21:28 Plt Count 194 10^3/uL (150-400) 01/27/18 21:28 MPV 9.3 fL (8.7-11.7) 01/27/18 21: Neut % (Auto) 83.4 % (39.3-74.2) H 01/27/18 21: Lymph % (Auto) 10.7 % (15.0-45.0) L 01/27/18 21: [place] % (Auto) 3.4 % (4.5-13.0) L 01/27/18 21: Eos % (Auto) 1.9 % (0.6-7.6) 01/27/18 21: Baso % (Auto) 0.3 % (0.3-1.7) 01/27/18: Nucleat RBC Rel Count 0.0 % (0.0-0.2) 01/27/18: Absolute Neuts (auto) 5.83 10^3/uL (1.70-6.50) 01/27/18 21: Absolute Lymphs (auto) 0.75 10^3/uL (1.00-3.00) L 01/27/18 21: Absolute Monos (auto) 0.24 10^3/uL (0.30-0.80) L 01/27/18 21: Absolute Eos (auto) 0.13 10^3/uL (0.03-0.40) 01/27/18 21: Absolute Basos (auto) 0.02 10^3/uL (0.02-0.10) 01/27/18 21: Absolute Nucleated RBC 0.00 10^3/uL (0-0.01) 01/27/18: Immature Gran % 0.3 % (0.0-1.1) 01/27/18 21: Immature Gran # 0.02 10^3/uL (0.00-0.10) 01/27/18: Platelet Estimate ADEQUATE (ADEQ) 01/27/18: Polychromasia 1+ H 01/27/18 21: Microcytic Cells 1+ H 01/27/18 21: PT 14.8 SEC (12.0-15.0) 01/27/18 21: INR 1.14 (0.83-1.16) 01/27/18: APTT 37.2 SEC (23.0-38.0) 01/27/18 21:28 VBG Lactic Acid 0.8 mmol/L (0.7-2.1) 01/27/18 21:49 Sodium 135 mEq/L (135-145) 01/27/18 21:28 Potassium 4.3 mEq/L (3.3-5.0) 01/27/18 21:28 Chloride 95 mEq/L (97-110) L 01/27/18 21:28 Carbon Dioxide 26 mEq/l (22-31) 01/27/18 21:28 Anion Gap 14 mEq/L (8-16) 01/27/18 21:28 BUN 38 mg/dL (7-23) H 01/27/18 21:28 Creatinine 6.6 mg/dL (0.7-1.3) H 01/27/18 21:28 Estimated GFR 10 01/27/18 21:28 Glucose 91 mg/dL (70-100) 01/27/18 21:28 Calcium 9.8 mg/dL (8.5-10.4) 01/27/18 21:28 Total Bilirubin 1.8 mg/dL (0.1-1.4) H 01/27/18 21:28 Conjugated Bilirubin 0.9 mg/dL (0.0-0.5) H 01/27/18 21:28 Unconjugated Bilirubin 0.9 mg/dL (0.0-1.1) 01/27/18 21:28 AST 23 IU/L (17-59) 01/27/18 21:28 ALT 31 IU/L (21-72) 01/27/18 21:28 Alkaline Phosphatase 86 IU/L (38-126) 01/27/18 21:28 Troponin I 0.076 ng/mL (0.000-0.034) H 01/27/18 21:28 Total Protein 6.4 g/dL (6.3-8.2) 01/27/18 21:28 Albumin 3.7 g/dL (3.5-5.0) 01/27/18 21:28 Procalcitonin 2.88 ng/mL (0.02-0.10) H 01/27/18 21:28 Patient ABO/Rh A POSITIVE 01/27/18 23:17 Antibody Screen NEGATIVE 01/27/18 23:17 Crossmatch IS Only See Detail 01/27/18 23:17 Imaging Review: Imaging Impressions Chest X-Ray 01/27/18 21:37 Impression: Similar pattern to 3 days prior. Diffuse interstitial edema and right pleural effusion. Bronchopneumonia and pneumonitis versus fluid overload. Visualized and Interpreted Chest x-ray results: Yes Chest X-Ray results: other (Edema, similar to prior CXR 3 days ago) Visualized and Interpreted EKG results: Yes EKG Interpretation: Positive for: other (Sinus tach) Assessment & Plan Assessment: 27 yo M w/ hx of ESRD, hx of bMVR with early degeneration and recurrent MS, and chronic anemia presents with shortness of breath, fever, and anemia. Plan: 1. SOB - I suspect this is multifactorial from pulmonary edema, anemia, and possible infection. Patient is at baseline 2 L/min O2 requirement but has severe orthopnea despite being at dry weight of 68 kg. Of note, his symptoms worsened significantly during HD, which may signal he is not tolerating euvolemia due to his mitral valve disease. - Will transfuse 1u pRBC - Treat possible infection as below - Discuss with cardiology re: timing of valvuloplasty - Continue HD on // schedule 2. Sepsis - Possibly 2/2 pneumonia noting patient has had persistent pulmonary edema and has cough now productive of green sputum. He denies other localizing symptoms of infection and has had Tmax of 38.3 while here (3/4 SIRS criteria: HR , RR, T). - Will cover with levofloxacin for now - Blood culture, procalcitonin, respiratory PCR 3. Acute on chronic anemia - Hgb 6.6 on admission, decreased from 8.5 on discharge 2 days ago. I suspect this is significantly contributing to symptoms as patient states blood transfusion greatly improved his symptoms during last hospitalization. Anemia is thought to be 2/2 renal disease, unclear if mitral stenosis is contributing. Ferritin recently 274 so doubt iron deficiency. He denies BRBPR, melena. - 1u pRBC now, s/p Epo at HD earlier today - Monitor CBC, transfuse for Hgb<7 4. MVP s/p bMVR - Now with degeneration of valve and mitral stenosis. Valvuloplasty scheduled for 02/05. - Discuss case with cardiology to see if situation merits earlier intervention 5. ESRD - On HD M/W/F, with last session on day of admission. He is currently at his usual dry weight of 68 kg. 6. HTN - Continue home medications Diet - Regular Code - Full Ppx - SCDs Dispo - Admit under observation status
[2018-01-28 05:04] LABS: PLATELET COUNT 167 10^3/uL (150-400)
[2018-01-28] MEDS: ACETAMINOPHEN 325 MG TAB PO PRN (07:34)
[2018-01-28] MEDS ORDERED: oxyCODONE IR 5 MG TAB PO ONE (10:15)
[2018-01-28] MEDS ORDERED: OXYCODONE/APAP 5/325 TAB PO PRN (12:25)
[2018-01-28] MEDS ORDERED: oxyCODONE IR 5 MG TAB PO PRN (12:26)
--- NOTE | 2018-01-28 14:25 | HOSPPROG ---
Hospitalist Progress Note Assessment/Plan: Assessment: 27 yo M w/ hx of ESRD, hx of bMVR with early degeneration and recurrent MS, and chronic anemia presents with shortness of breath, fever, and anemia. Plan: # SOB - I suspect this is multifactorial from pulmonary edema, anemia, and possible infection. Patient is at baseline 2 L/min O2 requirement but has severe orthopnea despite being at dry weight of 68 kg. Of note, his symptoms worsened significantly during HD, which may signal he is not tolerating euvolemia due to his mitral valve disease. Improved slightly--tx as below # Sepsis - Possibly 2/2 pneumonia noting patient has had persistent pulmonary edema and has cough now productive of green sputum. He denies other localizing symptoms of infection and has had Tmax of 38.3 while here (3/4 SIRS criteria: HR , RR, T). - Will cover with levofloxacin for now # bronchopneumonia: noted on personal review of cxr and in setting of sepsis as above # Acute on chronic anemia - Hgb 6.6 on admission, decreased from 8.5 on discharge 2 days ago. I suspect this is significantly contributing to symptoms as patient states blood transfusion greatly improved his symptoms during last hospitalization. Anemia is thought to be 2/2 renal disease, unclear if mitral stenosis is contributing. Ferritin recently 274 so doubt iron deficiency. He denies BRBPR, melena. - s/p Epo at HD - now s/p tx of 3 units and h/h appropriately increased, will continue to monitor # MVP s/p bMVR - Now with degeneration of valve and mitral stenosis. Valvuloplasty scheduled for 02/05. - discussed with cardiology,unable to perform valvuloplasty sooner but they will follow and consider whether he requires hospitalization until surgery # ESRD - On HD M/W/F, with last session on day of admission. He is currently at his usual dry weight of 68 kg. # HTN - Continue home medications Diet - Regular Code - Full Ppx - SCDs Dispo - Admit under observation status Subjective: no significant overnight events, patient feels slightly better however is frustrated and worried that he has continued overall to feel so poorly Objective: Vital Signs Temp Pulse Resp BP Pulse Ox 36.7 C 87 18 136/70 H 94 01/28/18 13:32 01/28/18 13:32 01/28/18 13:32 01/28/18 13:32 01/28/18 13:32 Microbiology 01/28/18 00:03 Respiratory Panel (PCR) - Final Nasal, Sinus - Swab No Organism Detected Laboratory Results 01/28/18 07:30 01/28/18 04:17 01/27/18 01/28/18 01/29/18 05:59 05:59 05:59 Intake Total 1405 240 Balance 1405 240 PT 14.8 SEC (12.0-15.0) 01/27/18 21:28 INR 1.14 (0.83-1.16) 01/27/18 21:28 awake alert anicteric op clear rrr systolic murmur cta crackles at bases soft nt nd no cce warm dry well perfused oriented appopriate - Time Spent With Patient Time Spent with Patient: greater than 35 minutes Time Spent with Patient: Greater than 35 minutes spent on this patients care, greater than 50% of time spent counseling, educating, and coordinating care regarding the above mentioned plan. ICD10 Worksheet Patient Problems: Problems Problem Status Onset Dyspnea Acute ESRD on hemodialysis Acute Elevated troponin Acute Headache Acute Pneumonia Acute Pulmonary edema Acute Hypoxia Acute Tachycardia Acute Fever Acute Chest pain Acute Shortness of breath Acute Severe mitral regurgitation Chronic Postoperative pneumothorax Acute S/P mitral valve replacement with bioprosthetic valve Acute ESRD (end stage renal disease) Chronic Anemia Chronic CHF (congestive heart failure) Chronic Hypertensive urgency Chronic
[2018-01-28] MEDS: oxyCODONE IR 5 MG TAB PO PRN ×2 (14:26→19:05)
--- NOTE | 2018-01-28 14:51 | SOAPPROG ---
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 This is his third admission this Month. 1. Chest pain/shortness of breath: I think this is related to diastolic CHF secondary to mitral stenosis as well as severe anemia. --> Treat mitral valve and anemia as noted below --> Diuresis as tolerated 2. Hypertension: Pt has a history of marked hypertension. His BP is well controlled at this time. --> Continue current therapy. 3. Prosthetic valve mitral stenosis: Pt is s/p MVR with a bioprosthetic valve in 07/28. He has severe prosthetic valve mitral stenosis. Plans have been made for mitral valvuloplasty on 02/05/18 with surgical back up. This can not be moved forward given need for specialized equipment that has been ordered but will not arrive prior to this date. In addition would like to work up anemia and fever prior to the procedure as patient may require surgery if procedure is not successful. 4. End-stage renal disease on dialysis: He still does make some urine. He does not tolerate dialysis well. Consideration should be given to renal transplant. His outpatient software reverse engineer is Dr. Rawls. 5. Anemia: Pt has chronic anemia secondary to end stage renal disease. However , his HGB decreased from 8.5 to 6.6 over last 48 hours. Pt denies obvious source of bleeding ? hemolysis. Will defer work up to Dr. Sigala. 6. Fever: Pt presented with a fever of 38. No obvious source based on history. Blood cx have been drawn. Will obtain an echocardiogram to further evaluate his condition. 7. Elevated Troponin: Pt has a mildly elevated troponin in the setting of diastolic CHF and renal failure. His troponin is not significantly changed from previous. EKG demonstrates no acute ST or T changes. Angiogram last year with no significant obstructive disease. Do not suspect ACS --> cycle biomarkers Subjective: Pt was recently discharged from the hospital with diastolic CHF and anemia on . Plans were set in place for valvuloplasty on 02/05 given need for specialized equipment. Pt presents with recurrent dyspnea and chest tightness c /w his previous admission. Pt also reports recent onset of fever but denies cough, urinary symptoms, or cellulitis. Pt is s/p tooth extraction prior to his MVR. He thinks 2 additional teeth may need to be extracted. Objective: Vital Signs Temp Pulse Resp BP Pulse Ox 36.7 C 87 18 136/70 H 94 01/28/18 13:32 01/28/18 13:32 01/28/18 13:32 01/28/18 13:32 01/28/18 13:32 Microbiology 01/28/18 00:03 Respiratory Panel (PCR) - Final Nasal, Sinus - Swab No Organism Detected Laboratory Results 01/28/18 07:30 01/28/18 04:17 01/27/18 01/28/18 01/29/18 05:59 05:59 05:59 Intake Total 1405 240 Balance 1405 240 PT 14.8 SEC (12.0-15.0) 01/27/18 21:28 INR 1.14 (0.83-1.16) 01/27/18 21:28 Physical Exam - Physical Exam General Appearance: alert, no apparent distress EENT: other (No gingivitis) Neck: other (+ JVD) Respiratory: lungs clear, No crackles Cardiac/Chest: regular rate, rhythm, diastolic murmur Abdomen: non-tender, soft Skin: normal color Extremities: No pedal edema Neuro/Psych: alert, oriented x 3 ICD10 Worksheet Patient Problems: Problems Problem Status Onset Chest pain Acute Fever Acute Shortness of breath Acute Tachycardia Acute ESRD (end stage renal disease) Chronic Dyspnea Acute ESRD on hemodialysis Acute Elevated troponin Acute Headache Acute Hypoxia Acute Pneumonia Acute Postoperative pneumothorax Acute Pulmonary edema Acute S/P mitral valve replacement with bioprosthetic valve Acute Anemia Chronic CHF (congestive heart failure) Chronic Hypertensive urgency Chronic Severe mitral regurgitation Chronic
[2018-01-28] MEDS: DIAZEPAM 5 MG TAB PO PRN ×2 (15:28→20:33)
--- NOTE | 2018-01-28 15:59 | ASMTCMCOM ---
CM Note CM Note Notes: 01/28/2018 Case Management Note Pt was admitted for shortness of breath and pulmonary edema. Pt is well known to [facility] with a recent d/c over the past weekend. Met w/pt to discuss d/c needs. Pt expresses frustration with frequent re admissions "I just want to be healthier". Pt plans for his 3 children ages 4, 5, and 6 to visit him in the hospital and finds those visits improve his outlook. Pt has strong support from his parents. Pt declined any spiritual care or assistance from DONNY or Yeni Mullins. Pt has dialysis 3 times a week MWF at [facility]. There are no further case management d/c needs identified at this time. Case Management to follow. Date Signed: 01/28/2018 03:58 PM Electronically Signed By:Lindy Ibarra RN
--- NOTE | 2018-01-28 16:15 | ECHO ---
[email or web address] [address] [address] Main: [phone] Fax: Transthoracic Echocardiogram Name: CONRADO ESPINOSA MR#: [id number] Study Date: 01/28/2018 Study Time: 02:54 PM Date of : 1990 Age: 27 year(s) Height: 175.3 cm (69 in.) Weight: 67.59 kg (149 lb.) BSA: 1.82 m2 Gender: Male Examination: Echo Indication: s/p bioprosthetic MVR; fever; r/o vegetation Image Quality: Adequate Contrast: Requested by: Shant Farnsworth BP: 136 mmHg/70 mmHg Heart Rate: Rhythm: Indication: s/p bioprosthetic MVR; fever; r/o vegetation Procedure Staff Viscosity Tester: Anne Valadez [facility] Reading Physician: Shant Farnsworth MD Requesting Provider: Conclusions: Normal size left ventricle. Concentric LV hypertrophy. EF is 66 %. Mildly reduced RV function. The left atrium is moderately to severely dilated. The right atrium is moderately dilated. A bioprosthetic mitral valve is in place.. The posterior bioprosthetic leaflet is thickened and stenotic. Mean gradient across the valve 19mmHg which is consistent with severe mitral stenosis. No obvious vegetation noted. 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 The aortic valve is tri-leaflet. There is no aortic valve regurgitation. No aortic valve stenosis is present. Severe tricuspid regurgitation is present. Right ventricular systolic pressure measures 89mmHg. There is a pleural effusion present. Measurements: Chambers Valvular Assessment AV/MV Valvular Assessment TV/PV Normal Normal Normal Name Value Range Name Value Range Name Value Range Ao Tiffanie (MM): 2.8 cm (2.2 cm-3.7 AV Vmax: 1.81 m/s (1 m/s-1.7 TR Vmax: 4.30 mm/s ( - ) cm) m/s) TR PGmax: 74 mmHg ( - ) IVSd (2D): 0.9 cm (0.6 cm-1.1 AV maxP mmHg ( - ) syst. PAP: 89 mmHg ( - ) cm) LVOT Vmax: 1.47 m/s (0.7 m/s-1.1 PV Vmax: 1.34 m/s (0.6 m/s-0.9 LVDd (2D): 4.9 cm (4.2 cm-5.9 m/s) m/s) cm) MV meanP mmHg ( - ) PV PGmax: 7 mmHg ( - ) LVDs (2D): 2.6 cm (2.1 cm-4 MV PHT: 0.103 s ( - ) cm) MVA (PHT): 2.1 s ( - ) Patient: CONRADO ESPINOSA Study Date: 01/28/2018 Page 1 of 2 02:54 PM LVPWd (2D): 1.3 cm (0.6 cm-1 cm) LVEF (BP): 66 % (>=55 %) RVDd(2D): 3.7 cm (1.9 cm-3.8 cmmm) Continued Measurements: Chambers Valvular Assessment AV/MV Valvular Assessment TV/PV Name Value Name Value Name Value LADs Lon.6 cm MV VTI: 88.30 cm CVP (est.): 15 mmHg LA Area: 22.2 cm2 LA Volume: 79 ml LA Volume Index: 43.4 ml/m2 TAPSE: 1.2 cm Findings: Left Ventricle: Normal size left ventricle. Concentric LV hypertrophy. Normal global systolic LV function. EF is 66 %. Abnormal septal motion noted. Unable to assess diastolic dysfunction. Right Ventricle: Mildly dilated right ventricle. Mildly reduced RV function. Left Atrium: The left atrium is moderately to severely dilated. Right Atrium: The right atrium is moderately dilated. Mitral Valve: A bioprosthetic mitral valve is in place.. The posterior bioprosthetic leaflet is thickened and stenotic. Mean gradient across the valve 19mmHg which is consistent with severe mitral stenosis. No obvious vegetation noted. 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 Severe prosthesis stenosis. Trivial MV prosthesis regurgitation. Aortic Valve: The aortic valve is tri-leaflet. There is no aortic valve regurgitation. No aortic valve stenosis is present. There is no aortic valve vegetation. Tricuspid Valve: The tricuspid valve appears normal. Severe tricuspid regurgitation is present. Right ventricular systolic pressure measures 89mmHg. The pulmonary artery pressure is severely increased. No tricuspid valve vegetation. Pulmonic Valve: The pulmonic valve is normal in appearance. Trivial pulmonic valve regurgitation. Aorta: Normal size aortic root measuring 2.8 cm. IVC: The IVC is dilated. There is less than 50% respiratory excursion. Pericardium: No pericardial effusion. There is a pleural effusion present. (No Signature Object) Patient: CONRADO ESPINOSA Study Date: 01/28/2018 Page 2 of 2 02:54 PM [id number]
[2018-01-28] MEDS: CARVEDILOL 25 MG TAB PO SCH (17:34)
[2018-01-28] MEDS: MINOXIDIL 10 MG TAB PO SCH (17:35)
[2018-01-28] MEDS: GABAPENTIN 100 MG CAP PO SCH (20:33)
[2018-01-29] MEDS: DIAZEPAM 5 MG TAB PO PRN ×2 (07:33→13:59)
[2018-01-29] MEDS: CARVEDILOL 25 MG TAB PO SCH ×2 (08:16→18:34)
[2018-01-29] MEDS: FUROSEMIDE 40 MG TAB PO SCH (08:16)
[2018-01-29] MEDS: ASPIRIN EC 81 MG TAB PO SCH (08:16)
[2018-01-29] MEDS: MINOXIDIL 10 MG TAB PO SCH ×2 (08:16→18:34)
--- NOTE | 2018-01-29 11:54 | SOAPPROG ---
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 This is his third admission this Month. 1. Chest pain/shortness of breath: I think this is related to diastolic CHF secondary to mitral stenosis as well as severe anemia. --> Treat mitral valve and anemia as noted below --> Diuresis as tolerated 2. Hypertension: BP is mildly to moderately elevated. --> Start hydralazine 10 mg tid 3. Prosthetic valve mitral stenosis: Pt is s/p MVR with a bioprosthetic valve in 07/28. He has severe prosthetic valve mitral stenosis. Plans have been made for mitral valvuloplasty on 02/05/18 with surgical back up. This can not be moved forward given need for specialized equipment that has been ordered but will not arrive prior to this date. In addition would like to work up anemia and fever prior to the procedure as patient may require surgery if procedure is not successful. 4. End-stage renal disease on dialysis: He still does make some urine. He does not tolerate dialysis well. Consideration should be given to renal transplant. His outpatient cap maker is Dr. Rawls. 5. Anemia: Pt has chronic anemia secondary to end stage renal disease. Hgb is up to 9.2 post transfusion. Pt denies obvious source of bleeding ? hemolysis. Will defer work up to Dr. Sigala. 6. Fever: Pt presented with a fever of 38. No obvious source based on history. Fever has resolved with out intervention. Echocardiogram with no obvious vegetation. Blood cx NGTD. --> Continue to follow. 7. Elevated Troponin: Pt has a mildly elevated troponin in the setting of diastolic CHF and renal failure. His troponin is not significantly changed from previous. EKG demonstrates no acute ST or T changes. Angiogram last year with no significant obstructive disease. Do not suspect ACS --> cycle biomarkers 01/29/18 11:51 Subjective: S/P transfusion Feels the same + dyspnea No PND limited ambulation No further fevers No melena or BRBPR Objective: Vital Signs Temp Pulse Resp BP Pulse Ox 36.8 C 104 H 20 162/86 H 92 01/29/18 08:09 01/29/18 08:09 01/29/18 08:09 01/29/18 08:09 01/29/18 08:09 Microbiology 01/28/18 00:03 Respiratory Panel (PCR) - Final Nasal, Sinus - Swab No Organism Detected Laboratory Results 01/28/18 21:26 01/29/18 08:25 01/28/18 01/29/18 01/30/18 05:59 05:59 05:59 Intake Total 1405 2030 540 Output Total 300 Balance 1405 1730 540 PT 14.8 SEC (12.0-15.0) 01/27/18 21:28 INR 1.14 (0.83-1.16) 01/27/18 21:28 Physical Exam - Physical Exam General Appearance: alert, no apparent distress Respiratory: lungs clear Cardiac/Chest: regular rate, rhythm, diastolic murmur Extremities: No pedal edema ICD10 Worksheet Patient Problems: Problems Problem Status Onset Chest pain Acute Fever Acute Shortness of breath Acute Tachycardia Acute ESRD (end stage renal disease) Chronic Dyspnea Acute ESRD on hemodialysis Acute Elevated troponin Acute Headache Acute Hypoxia Acute Pneumonia Acute Postoperative pneumothorax Acute Pulmonary edema Acute S/P mitral valve replacement with bioprosthetic valve Acute Anemia Chronic CHF (congestive heart failure) Chronic Hypertensive urgency Chronic Severe mitral regurgitation Chronic
[2018-01-29] MEDS: hydrALAZINE 10 MG TAB PO SCH (15:42)
[2018-01-29] MEDS: LORazepam 2 MG/ML INJ IVP PRN (15:42)
--- NOTE | 2018-01-29 16:55 | HOSPPROG ---
Hospitalist Progress Note Assessment/Plan: Assessment: 27 yo M w/ hx of ESRD, hx of bMVR with early degeneration and recurrent MS, and chronic anemia presents with shortness of breath, fever, and anemia. Plan: # SOB - multifactorial from pulmonary edema, anemia, and possible infection. Patient is at baseline 2 L/min O2 requirement but has severe orthopnea despite being at dry weight of 68 kg. Of note, his symptoms worsened significantly during HD, which may signal he is not tolerating euvolemia due to his mitral valve disease. Improved slightly--tx as below # Sepsis - resolved, presumed 2/2 bronchopna as next, continued on levofloxacin # bronchopneumonia: noted on personal review of cxr and in setting of sepsis as above # Acute on chronic anemia - Hgb 6.6 on admission, decreased from 8.5 on discharge 2 days ago. I suspect this is significantly contributing to symptoms as patient states blood transfusion greatly improved his symptoms during last hospitalization. Anemia is thought to be 2/2 renal disease, unclear if mitral stenosis is contributing. Ferritin recently 274 so doubt iron deficiency. He denies BRBPR, melena. -now s/p 3 units and h/h appropriately increased, will continue to monitor # MVP s/p bMVR - Now with degeneration of valve and mitral stenosis. Valvuloplasty scheduled for 02/05. - discussed with cardiology,unable to perform valvuloplasty sooner and plan to maintain pt in hospital until surgery can be peformed # ESRD - On HD M/W/F, with last session on day of admission. He is currently at his usual dry weight of 68 kg. Consulted renal who will continue dialysis in house # HTN - Continue home medications with addition of hydralazine, still intermittently high and will continue to titrate meds as needed # anxiety: patient with significant anxiety largely around being in the hospital so long and all of the psychosocial stress he is dealing with, will continue prn benzos Diet - Regular Code - Full Ppx - SCDs Dispo - IP status, will likely need to be here until valve surgery Subjective: no significant overnight events, patient more anxious/tearful today regarding being stuck in the hospital Objective: Vital Signs Temp Pulse Resp BP Pulse Ox 36.7 C 92 15 138/74 H 94 01/29/18 12:52 01/29/18 12:52 01/29/18 12:52 01/29/18 12:52 01/29/18 12:52 Laboratory Results 01/28/18 21:26 01/29/18 08:25 01/28/18 01/29/18 01/30/18 05:59 05:59 05:59 Intake Total 1405 2030 1040 Output Total 300 200 Balance 1405 1730 840 PT 14.8 SEC (12.0-15.0) 01/27/18 21:28 INR 1.14 (0.83-1.16) 01/27/18 21:28 awake alert anicteric op clear rrr systolic murmur cta crackles at bases soft nt nd no cce warm dry well perfused oriented appopriate ICD10 Worksheet Patient Problems: Problems Problem Status Onset Chest pain Acute Fever Acute Shortness of breath Acute Tachycardia Acute ESRD (end stage renal disease) Chronic Dyspnea Acute ESRD on hemodialysis Acute Elevated troponin Acute Headache Acute Hypoxia Acute Pneumonia Acute Postoperative pneumothorax Acute Pulmonary edema Acute S/P mitral valve replacement with bioprosthetic valve Acute Anemia Chronic CHF (congestive heart failure) Chronic Hypertensive urgency Chronic Severe mitral regurgitation Chronic
--- NOTE | 2018-01-29 18:09 | GCON ---
[f rep st] CONSULTATION DATE OF CONSULTATION: 01/29/2018 CC overdosage of lower abdomen. REASON FOR CONSULTATION: Opinion regarding end-stage kidney failure. HISTORY OF PRESENT ILLNESS: The patient is a very pleasant 27-year-old gentleman with end-stage kidn ey failure, on 3 times weekly hemodialysis. He dialyzes in the [facility] here in [facility]. He was in his usual state of health until yesterday, when he began having increasing dyspnea. He was admitted to the hospital for further evaluation and management. The patient had a prosthetic mitral valve replacement in July of 2017, was doing well for several months, however, had increas ed stenosis and now has severe mitral valve stenosis and needs intervention or a new valve. The uday ent has been in and out of the hospital multiple times over the course of the past 3 or 4 months. Currently, he is sitting up in bed. His family is at the bedside. He has not had fevers, chills, na usea, vomiting, chest pain. He does have shortness of breath that is about at his baseline. No sput um production. He does have a dry cough. No hemoptysis, hematemesis, epistaxis, abdominal pain, hector rrhea, constipation, melena, hematochezia, blurry vision, double vision, headache. He does have some orthopnea and paroxysmal nocturnal dyspnea. No palpitations or syncope. PAST MEDICAL HISTORY: Significant for: 1. End-stage kidney failure on 3 times weekly dialysis. 2. Hypertension. 3. Mitral stenosis. 4. Status post bioprosthetic mitral valve replacement in July 2017. 5. Early recurrence of mitral stenosis post bioprosthetic valve replacement. 6. Status post cholecystectomy. 7. Hypertension. 8. Anemia. 9. Secondary hyperparathyroidism. 10. Congestive heart failure. ALLERGIES: None. FAMILY HISTORY: Negative for kidney disease. MEDICATIONS: Include: 1. Norvasc 10 mg a day. 2. Aspirin 81 mg a day. 3. Coreg 25 mg twice daily. 4. Lasix 40 mg daily. 5. Neurontin 100 mg at bedtime. 6. Hydralazine 10 mg 3 times daily. 7. Minoxidil 20 mg twice daily. 8. Zofran. 9. Oxycodone. SOCIAL HISTORY: He is . He lives with his mom and dad. Does use tobacco. Enjoys skateboar ding and riding his bike, he also plays guitar. REVIEW OF SYSTEMS: A complete 12-point review of systems was performed with pertinent positives and negatives as per the previous sections. PHYSICAL EXAMINATION: VITAL SIGNS: Blood pressure 138/74, pulse 92, respirations 15, temp 36.7 degr ees. Urine output about 300 cc today. GENERAL: He is awake, alert, cooperative. He is short of br eath and seems frustrated. HEENT: Pupils are reactive to light and extraocular movements are intact . Mucous membranes are moist. NECK: Positive for JVD. HEART: Regular with a grade 2-3/6 systolic murmur. LUNGS: Bilateral rales in the bases. No rhonchi or wheezes. ABDOMEN: Bowel sounds are p ositive. Soft, nontender, nondistended. EXTREMITIES: No edema, cyanosis, clubbing. NEUROLOGIC: N o asterixis. SKIN: No unusual rashes or lesions. LYMPH: No palpable lymphadenopathy or lymphedema . MUSCULOSKELETAL: He has a left forearm arteriovenous fistula with a good bruit and thrill. LABORATORY: WBC 3.8, hemoglobin 6.5, hematocrit 19.4, platelet count 167,000. He was transfused 3 u nits of packed red blood cells. Hemoglobin is now 9.2. Urinalysis: Specific gravity of less than o f 1.001, pH 8, negative protein, negative blood. Blood cultures x4 are pending. Serum sodium 138, p otassium 5.4, chloride 97, CO2 is 22, BUN 69, creatinine 9.3, glucose 135, calcium 9.8. Respiratory cultures were negative. Echocardiogram showed an ejection fraction of 66% with concentric left ventr icular hypertrophy, moderate dilatation of both the right and left atria, the left atrial dilatation may be severe. He does have a bioprosthetic mitral valve with a posterior leaflet that is thick and fused. Has severe mitral stenosis and his right ventricular systolic pressure is 89 with severe tric uspid regurgitation. IMPRESSION: 1. End-stage kidney failure on 3 times weekly hemodialysis. 2. Volume overload due to congestive heart failure. 3. Congestive heart failure due to severe mitral stenosis. 4. Shortness of breath. 5. Hypertension, under reasonable control. 6. Anemia requiring transfusion. RECOMMENDATIONS: 1. Hemodialysis tonight for both volume as well as borderline high potassium. 2. Needs a mitral valve intervention, and that is planned for the end of January. 3. He has been in and out of the hospital every 2 or 3 days. It makes me wonder if we should not ju st keep him in the hospital until he is ready for his intervention. Thank you for allowing me to participate in the care of your patient. If there are any questions, pl ease do not hesitate to contact me. I will be following along with you. /[id number]/MODL
[2018-01-29] MEDS: oxyCODONE IR 5 MG TAB PO PRN (18:34)
--- NOTE | 2018-01-29 21:55 | HOSPPROG ---
Hospitalist Progress Note Assessment/Plan: Called to evaluate the patient and he is c/o of progressive 10/10 penile pain and swelling since earlier this evening. He reports progressive pain and swelling since this evening. Pain is 10/10. He is tearful and starts to cry during my evaluation. His dorsal aspect of his penis is swollen and TTP. The rest of the penis is unremarkable. He does not have scrotal swelling. There is no erythema. No obvious dishcarge. He has not had any sexual intercourse in several months. Penile swelling and pain, etiology unclear Dr. Cool to consult. Objective: Vital Signs Temp Pulse Resp BP Pulse Ox 36.4 C 91 16 147/84 H 95 01/29/18 20:00 01/29/18 20:00 01/29/18 20:00 01/29/18 20:00 01/29/18 20:00 Laboratory Results 01/28/18 21:26 01/29/18 08:25 01/28/18 01/29/18 01/30/18 05:59 05:59 05:59 Intake Total 1405 2030 1276 Output Total 300 200 Balance 1405 1730 1076 PT 14.8 SEC (12.0-15.0) 01/27/18 21:28 INR 1.14 (0.83-1.16) 01/27/18 21:28 ICD10 Worksheet Patient Problems: Problems Problem Status Onset Chest pain Acute Fever Acute Shortness of breath Acute Tachycardia Acute ESRD (end stage renal disease) Chronic Dyspnea Acute ESRD on hemodialysis Acute Elevated troponin Acute Headache Acute Hypoxia Acute Pneumonia Acute Postoperative pneumothorax Acute Pulmonary edema Acute S/P mitral valve replacement with bioprosthetic valve Acute Anemia Chronic CHF (congestive heart failure) Chronic Hypertensive urgency Chronic Severe mitral regurgitation Chronic
[2018-01-30] MEDS: hydrALAZINE 10 MG TAB PO SCH ×3 (00:53→09:01)
[2018-01-30] MEDS: GABAPENTIN 100 MG CAP PO SCH ×2 (00:55→19:25)
[2018-01-30] MEDS: oxyCODONE IR 5 MG TAB PO PRN ×4 (00:55→19:25)
[2018-01-30] MEDS: DIAZEPAM 5 MG TAB PO PRN ×4 (01:01→22:25)
[2018-01-30 06:09] LABS: PLATELET COUNT 181 10^3/uL (150-400)
--- NOTE | 2018-01-30 08:18 | GCON ---
[f rep st] CONSULTATION DATE OF CONSULTATION: 01/29/2018 REASON FOR CONSULTATION: Concern regarding penile swelling. HISTORY OF PRESENT ILLNESS: This is a very pleasant 27-year-old gentleman with end-stage renal disease on 3 times weekly hemodialysis. He started complaining about penile swelling. The hospitalist service called us with concerns regarding 10/10 pain and severe swelling of significant concern for the management team. When I arrived in the hospital, it is likely that the acute event dissipated, as the patient was sleeping, and the edema looked relatively mild to moderate. Despite my physical examination and reassurances to the patient, he stated that his penis looked severely abnormal. On palpation, there is mild edema of the phallus below the circumcision line. This is likely related to fluid overload, and he is edematous in the lower extremities. This can be specific to the genitals. This could also be related to genital lymphedema, which is treated the same as angioedema, and we will treat this as a genital angioedema with Benadryl, Tylenol, and ice packs. PAST MEDICAL HISTORY: Significant for end-stage renal disease; hypertension; mitral stenosis, status post bioprosthetic mitral valve replacement in 2017; early recurrence of mitral stenosis post bioprosthetic valve replacement; status post cholecystectomy; hypertension; anemia; ; congestive heart failure. ALLERGIES: None. FAMILY HISTORY: Negative for kidney disease. MEDICATIONS: Norvasc, aspirin, Coreg, Lasix, Neurontin, hydralazine, minoxidil , Zofran, oxycodone. SOCIAL HISTORY: He is . He lives with his parents. He is a smoker. 12 POINT REVIEW OF SYSTEMS: Positive for severe anxiety and severe genital pain , although he does state that it is improved now. Of note, the patient was sleeping when I arrived in the room. He is pleasant and conversant with the nurse while I am outside the room. Anxiety may play a significant role in his perception of the situation. PHYSICAL EXAMINATION: VITAL SIGNS: Blood pressures are 130s over 70s, pulse 90s , temperature afebrile. GENERAL: Awake, alert, oriented. HEENT: Normocephalic, atraumatic. NECK: Positive for JVD. PULMONARY: No retractions. No pursed lip breathing. ABDOMEN: Soft, nontender, nondistended. GENITAL: There is mild genital edema, likely angioedema. No scrotal swelling. No scrotal masses. Phallus is otherwise normal. The skin looks healthy and well perfused. It is mildly tender to palpation. NEUROLOGIC: Cranial nerves 2-12 grossly intact. SKIN : No rashes or lesions except as otherwise described. MUSCULOSKELETAL: Moving all 4 extremities well. LABS: White count is 3.8, hemoglobin 6.5. IMPRESSION: End-stage renal failure on 3 times hemodialysis, volume overload due to congestive heart failure, penile edema. This penile edema is likely related to a combination of his congestive heart failure and volume overload, and this can happen in any patient with this clinical situation. I recommend Benadryl p.r.n. I recommend ice packs, and I recommend Tylenol p.r.n. We will sign off. Thank you for this interesting consult. Call with questions. /[id number]/MODL MTDD
--- NOTE | 2018-01-30 08:41 | PDMN ---
Medical Necessity Medical necessity: Change to IP, as of 01/29/18, per MD; los >2 mn for ongoing management of SOB r/t pulmonary edema, anemia & possible infection; pt w/ worsening symptoms during HD, admit for further monitoring, Nephrology/ Cardiology consults; hx multiple recent hospitalizations, MVP s/p bMVR now w/ degeneration of valve & mitral stenosis (valvuloplasty scheduled for 02/05/18), ESRD w/HD, HTN, CHF; per progress note & order 01/29/18
[2018-01-30] MEDS: ASPIRIN EC 81 MG TAB PO SCH (09:01)
[2018-01-30] MEDS: MINOXIDIL 10 MG TAB PO SCH ×2 (09:01→17:19)
[2018-01-30] MEDS: FUROSEMIDE 40 MG TAB PO SCH (09:01)
[2018-01-30] MEDS: CARVEDILOL 25 MG TAB PO SCH ×2 (09:01→17:19)
--- NOTE | 2018-01-30 09:57 | SOAPPROG ---
SOAP Progress Note Assessment/Plan: Assessment: 1. ESRD Next HD tomorrow 2. Anemia Resume [place]. Check Retic count and ESR. 3. HTN Stop hydralazine, adjust minoxidil as needed. 4. Valvular heart disease Valvuloplasty/MVR prior to DC Plan: 01/30/18 09:55 Subjective: Breathing is better. Objective: Vital Signs Temp Pulse Resp BP Pulse Ox 36.6 C 94 18 139/71 H 95 01/30/18 08:00 01/30/18 08:00 01/30/18 08:00 01/30/18 08:00 01/30/18 08:00 Laboratory Results 01/30/18 06:02 01/30/18 06:02 01/29/18 01/30/18 01/31/18 05:59 05:59 05:59 Intake Total 786 Output Total 3100 Balance -2314 PT 14.8 SEC (12.0-15.0) 01/27/18 21:28 INR 1.14 (0.83-1.16) 01/27/18 21:28 Physical Exam - Physical Exam General Appearance: no apparent distress Respiratory: lungs clear Cardiac/Chest: regular rate, rhythm, systolic murmur Extremities: normal inspection Neuro/Psych: alert, oriented x 3 ICD10 Worksheet Patient Problems: Problems Problem Status Onset Chest pain Acute Fever Acute Shortness of breath Acute Tachycardia Acute ESRD (end stage renal disease) Chronic Dyspnea Acute ESRD on hemodialysis Acute Elevated troponin Acute Headache Acute Hypoxia Acute Pneumonia Acute Postoperative pneumothorax Acute Pulmonary edema Acute S/P mitral valve replacement with bioprosthetic valve Acute Anemia Chronic CHF (congestive heart failure) Chronic Hypertensive urgency Chronic Severe mitral regurgitation Chronic
[2018-01-30] MEDS: LORazepam 2 MG/ML INJ IVP PRN ×2 (10:55→15:33)
--- NOTE | 2018-01-30 15:19 | SOAPPROG ---
JASON Progress Note Assessment/Plan: Assessment/plan: 27-year-old male with end-stage renal disease on hemodialysis , difficult to control hypertension, and moderate to severe bioprosthetic valve mitral stenosis who presents with fever, SOB, and chest tightness. This is his third admission this Month. 1. Chest pain/shortness of breath: I think this is related to diastolic CHF secondary to mitral stenosis as well as severe anemia. --> Treat mitral valve and anemia as noted below --> Diuresis as tolerated 2. Hypertension: Adequately controlled. 3. Prosthetic valve mitral stenosis: Pt is s/p MVR with a bioprosthetic valve in 07/28. He has severe prosthetic valve mitral stenosis. Plans have been made for mitral valvuloplasty on 02/05/18 with surgical back up. This can not be moved forward given need for specialized equipment that has been ordered but will not arrive prior to this date. In addition would like to work up anemia and fever prior to the procedure as patient may require surgery if procedure is not successful. 4. End-stage renal disease on dialysis: He still does make some urine. He does not tolerate dialysis well. Consideration should be given to renal transplant. His outpatient senior solutions engineer is Dr. Rawls. 5. Anemia: Pt has chronic anemia secondary to end stage renal disease. Hgb was up to 9.2 post transfusion and has decreased to 8.4. Pt denies obvious source of bleeding ? hemolysis. --> Will obtain LDH and haptoglobin. Indirect bilirubin wnl. 6. Fever: Pt presented with a fever of 38. No obvious source based on history. Fever has resolved with out intervention. Echocardiogram with no obvious vegetation. Blood cx NGTD. --> Continue to follow. 7. Elevated Troponin: Pt has a mildly elevated troponin in the setting of diastolic CHF and renal failure. His troponin is not significantly changed from previous. EKG demonstrates no acute ST or T changes. Angiogram last year with no significant obstructive disease. Do not suspect ACS Subjective: No chest pain + dyspnea + orthopnea ambulating with dyspnea No edema. Objective: Vital Signs Temp Pulse Resp BP Pulse Ox 36.6 C 100 18 126/69 H 97 01/30/18 08:00 01/30/18 10:48 01/30/18 10:48 01/30/18 10:48 01/30/18 10:48 Laboratory Results 01/30/18 06:02 06/21/18 06:02 01/29/18 01/30/18 01/31/18 05:59 05:59 05:59 Intake Total 786 Output Total 3100 Balance -2314 PT 14.8 SEC (12.0-15.0) 01/27/18 21:28 INR 1.14 (0.83-1.16) 01/27/18 21:28 Physical Exam - Physical Exam General Appearance: alert, no apparent distress Respiratory: lungs clear Cardiac/Chest: regular rate, rhythm, diastolic murmur Extremities: No pedal edema Neuro/Psych: alert ICD10 Worksheet Patient Problems: Problems Problem Status Onset Chest pain Acute Fever Acute Shortness of breath Acute Tachycardia Acute ESRD (end stage renal disease) Chronic Dyspnea Acute ESRD on hemodialysis Acute Elevated troponin Acute Headache Acute Hypoxia Acute Pneumonia Acute Postoperative pneumothorax Acute Pulmonary edema Acute S/P mitral valve replacement with bioprosthetic valve Acute Anemia Chronic CHF (congestive heart failure) Chronic Hypertensive urgency Chronic Severe mitral regurgitation Chronic
[2018-01-30] MEDS: EPOETIN ALFA 10,000 UNIT/ML VIAL SC SCH (15:33)
--- NOTE | 2018-01-30 16:04 | HOSPPROG ---
Hospitalist Progress Note Assessment/Plan: Assessment: 27 yo M w/ hx of ESRD, hx of bMVR with early degeneration and recurrent MS, and chronic anemia presents with shortness of breath, fever, and anemia. Plan: # SOB - multifactorial and presumably largely due to diastolic CHF in setting of mitral stenosis as well as severe anemia. Patient is at baseline 2 L/min O2 requirement but his sxs continue to be severe. Will continue diuresis, plan is for patient to stay in house for valve surgery as below # SIRS/sepsis - ruled out for sepsis, initially concerning for infection but more likely was 2/2 worsening chf and anemia # pulmonary edema: initially with concerns for bronchopneumonia given sirs and cxr but monitoring off of abx without recurrent sirs, will get repeat cxr in am # Acute on chronic anemia - Hgb 6.6 on admission, s/p transfusion of 3 units with h/h still low but improved and stable, due to chronic renal disease, perhaps component of hemolysis 2/2 MS as well. Haptoglobin and LDH pending # MVP s/p bMVR - Now with degeneration of valve and mitral stenosis. Valvuloplasty scheduled for 02/05. - discussed with cardiology,unable to perform valvuloplasty sooner and plan to maintain pt in hospital until surgery can be peformed # penile swelling: appreciate urology eval, likely due to chf/volume status # ESRD - On HD M/W/F, renal involved, continue HD per regular schedule # HTN - Continue home medications with addition of hydralazine, still intermittently high and will continue to titrate meds as needed # anxiety: patient with significant anxiety largely around being in the hospital so long and all of the psychosocial stress he is dealing with, will continue prn benzos Diet - Regular Code - Full Ppx - SCDs Dispo - IP status, will likely need to be here until valve surgery Subjective: no significant overnight events, patient remains a bit anxious/ tearful about being in the hospital Objective: Vital Signs Temp Pulse Resp BP Pulse Ox 36.9 C 96 18 120/63 98 01/30/18 15:41 01/30/18 15:41 01/30/18 15:41 01/30/18 15:41 01/30/18 15:41 Laboratory Results 01/30/18 06:02 01/30/18 06:02 01/29/18 01/30/1801/31/18 05:59 05:59 05:59 Intake Total 786 Output Total 3100 Balance -2314 PT 14.8 SEC (12.0-15.0) 01/27/18 21:28 INR 1.14 (0.83-1.16) 01/27/18 21:28 awake alert anicteric op clear rrr systolic murmur cta crackles at bases soft nt nd no cce warm dry well perfused oriented appopriate ICD10 Worksheet Patient Problems: Problems Problem Status Onset Chest pain Acute Fever Acute Shortness of breath Acute Tachycardia Acute ESRD (end stage renal disease) Chronic Dyspnea Acute ESRD on hemodialysis Acute Elevated troponin Acute Headache Acute Hypoxia Acute Pneumonia Acute Postoperative pneumothorax Acute Pulmonary edema Acute S/P mitral valve replacement with bioprosthetic valve Acute Anemia Chronic CHF (congestive heart failure) Chronic Hypertensive urgency Chronic Severe mitral regurgitation Chronic
[2018-01-31 04:18] LABS: PLATELET COUNT 189 10^3/uL (150-400)
[2018-01-31] MEDS ORDERED: INSULIN REGULAR HUMAN 100 UNIT/ML UNIT IVP ONE (08:52)
[2018-01-31] MEDS ORDERED: D50W 25 GM/50 ML SYR IVP ONE ×2 (08:53→09:30)
--- NOTE | 2018-01-31 09:16 | HOSPPROG ---
Hospitalist Progress Note Assessment/Plan: #Dyspnea: multifactorial with volume overload, mitral stenosis #Prosthetic mitral stenosis: initial repair 07/28. Valvuloplasty planned 02/05 #ESRD: HD today #Anemia of renal disease: s/p 3 units RBCs. Hemolysis labs pending, denies overt bleeding #HTN: cont home meds #Hyperkalemia:dosed insulin this morning, HD today #Symptomatic uremia: cont HD per renal #SIRs/sepsis: resolved. No signs infection. Reps PCR, cultures negative. no vegetation on echo #Indeterminate trop: due to volume overload #Migraines: associated with HD #Anxiety: situational with prolonged hospitalization #Diet: renal #Disp: cont inpatient admission for HD, BP control and planned cardiac intervention Subjective: "sad missed time with kids since in hospital" Objective: Vital Signs Temp Pulse Resp BP Pulse Ox 36.7 C 107 H 16 140/69 H 91 L 01/31/18 04:00 01/31/18 04:00 01/31/18 04:00 01/31/18 04:00 01/31/18 04:00 Laboratory Results 01/31/18 03:48 01/31/18 03:48 01/30/18 01/31/18 02/01/18 05:59 05:59 05:59 Intake Total 786 400 Output Total 3100 Balance -2314 400 PT 14.8 SEC (12.0-15.0) 01/27/18 21:28 INR 1.14 (0.83-1.16) 01/27/18 21:28 - Time Spent With Patient Time Spent with Patient: greater than 35 minutes Time Spent with Patient: Greater than 35 minutes spent on this patients care, greater than 50% of time spent counseling, educating, and coordinating care regarding the above mentioned plan. - Physical Exam Constitutional: no apparent distress Eyes: PERRL Ears, Nose, Mouth, Throat: moist mucous membranes Cardiovascular: regular rate and rhythym Respiratory: other (decreased BS bilateral bases) Gastrointestinal: normoactive bowel sounds Genitourinary: no bladder fullness Musculoskeletal: full muscle strength Neurologic: AAOx3, CN II-XII Intact Psychiatric: interacting appropriately ICD10 Worksheet Patient Problems: Problems Problem Status Onset Chest pain Acute Fever Acute Shortness of breath Acute Tachycardia Acute ESRD (end stage renal disease) Chronic Dyspnea Acute ESRD on hemodialysis Acute Elevated troponin Acute Headache Acute Hypoxia Acute Pneumonia Acute Postoperative pneumothorax Acute Pulmonary edema Acute S/P mitral valve replacement with bioprosthetic valve Acute Anemia Chronic CHF (congestive heart failure) Chronic Hypertensive urgency Chronic Severe mitral regurgitation Chronic
[2018-01-31] MEDS: oxyCODONE IR 5 MG TAB PO PRN ×2 (09:36→18:46)
[2018-01-31] MEDS: DIAZEPAM 5 MG TAB PO PRN ×2 (09:36→18:47)
[2018-01-31] MEDS: FUROSEMIDE 40 MG TAB PO SCH (09:37)
[2018-01-31] MEDS: ASPIRIN EC 81 MG TAB PO SCH (09:37)
[2018-01-31] MEDS: MINOXIDIL 10 MG TAB PO SCH ×2 (09:37→20:08)
[2018-01-31] MEDS: CARVEDILOL 25 MG TAB PO SCH ×2 (09:37→20:09)
--- NOTE | 2018-01-31 09:41 | SOAPPROG ---
SOAP Progress Note Assessment/Plan: Assessment/Plan: ESRD: on HD MWF. - Will do HD today. Anemia: Hgb stable s/p transfusion, will continue to monitor. Pt getting epo. Hypervolemia: reasonably controlled with dialysis and Lasix. Hyperkalemia: K 6.2 today. - Will give insulin/D50 as temporizing measure. - Will modulate further on HD. HTN: BP ok on current meds. Subjective: No acute events overnight. Pt is tired of being in the hospital. He states he is breathing comfortably on NC. He denies any additional fluid overload today. Objective: Vital Signs Temp Pulse Resp BP Pulse Ox 36.6 C 107 H 18 140/76 H 94 01/31/18 09:19 01/31/18 09:19 01/31/18 09:19 01/31/18 09:19 01/31/18 09:19 Laboratory Results 01/31/18 03:48 01/31/18 03:48 01/30/18 01/31/18 02/01/18 05:59 05:59 05:59 Intake Total 786 400 Output Total 3100 Balance -2314 400 PT 14.8 SEC (12.0-15.0) 01/27/18 21:28 INR 1.14 (0.83-1.16) 01/27/18 21:28 General: alert and oriented, no acute distress Eyes; EOMI, PERRL OP: Clear CV: RRR Resp: nolabored respirations on NC, CTAB Abd: Soft, NT/ND Ext: no edema Neuro: CN II-XII Grossly intact, no asterixis Psych: cooperative ICD10 Worksheet Patient Problems: Problems Problem Status Onset Chest pain Acute Fever Acute Shortness of breath Acute Tachycardia Acute ESRD (end stage renal disease) Chronic Dyspnea Acute ESRD on hemodialysis Acute Elevated troponin Acute Headache Acute Hypoxia Acute Pneumonia Acute Postoperative pneumothorax Acute Pulmonary edema Acute S/P mitral valve replacement with bioprosthetic valve Acute Anemia Chronic CHF (congestive heart failure) Chronic Hypertensive urgency Chronic Severe mitral regurgitation Chronic
--- NOTE | 2018-01-31 09:54 | ASMTCMCOM ---
CM Note CM Note Notes: CM discussed case w/ SHAVON Butler. CM met w/ pt for dispo planning. Pt is awaiting materials for valve replacement. No other needs identified at this time. CM available for changes. Plan: Independent Date Signed: 01/31/2018 09:53 AM Electronically Signed By:ELIDIA Francisco
[2018-01-31] MEDS: LORazepam 2 MG/ML INJ IVP PRN ×2 (11:26→20:05)
[2018-01-31] MEDS ORDERED: oxyCODONE IR 5 MG TAB PO ONE (20:00)
[2018-01-31] MEDS: GABAPENTIN 100 MG CAP PO SCH (22:24)
[2018-02-01 04:47] LABS: PLATELET COUNT 204 10^3/uL (150-400)
--- NOTE | 2018-02-01 09:08 | SOAPPROG ---
SOAP Progress Note Assessment/Plan: Assessment: 27 y/o man with previous BIOMVR and ESRD on HD with recurrent BIOMVR prosthetic MS and severe TR with severe pulmonary HTN. He has class IV NYHA sx with shortness of breath and hypoxemia at rest. PLAN: 1)no change in current meds. 2)high risk cardiac cath with balloon plasty of BIOMVR this saturday in hopes to alleviate MS. May need redo sternotomy with Mechanical MVR. 3)continue supplemental O2. 02/01/18 09:07 Subjective: Subjective: he is frustrated and wants to go home. He has shortness of breath standing next to bed. He has a migraine. Denies cough, CP, fevers or abdominal pain. No leg edema since after HD session. Objective: Vital Signs Temp Pulse Resp BP Pulse Ox 36.8 C 99 22 H 129/66 H 97 02/01/18 08:00 02/01/18 08:00 02/01/18 08:00 02/01/18 08:00 02/01/18 08:00 Laboratory Results 02/01/18 03:58 02/01/18 03:58 01/31/18 02/01/18 02/02/18 05:59 05:59 05:59 Intake Total 400 2650 Output Total 350 Balance 400 2300 PT 14.8 SEC (12.0-15.0) 01/27/18 21:28 INR 1.14 (0.83-1.16) 01/27/18 21:28 Physical Exam - Physical Exam General Appearance: alert EENT: normal ENT inspection Neck: non-tender Respiratory: lungs clear Cardiac/Chest: regular rate, rhythm, gallop, JVD, systolic murmur (large biventricular heave noted.) Peripheral Pulses: 2+: carotid (R), carotid (L), femoral (R), femoral (L), dorsalis-pedis (R), dorsalis-pedis (L) Abdomen: non-tender, hepatomegaly, No guarding, No rebound Skin: warm/dry Extremities: No pedal edema Neuro/Psych: alert ICD10 Worksheet Patient Problems: Problems Problem Status Onset Chest pain Acute Fever Acute Shortness of breath Acute Tachycardia Acute ESRD (end stage renal disease) Chronic Dyspnea Acute ESRD on hemodialysis Acute Elevated troponin Acute Headache Acute Hypoxia Acute Pneumonia Acute Postoperative pneumothorax Acute Pulmonary edema Acute S/P mitral valve replacement with bioprosthetic valve Acute Anemia Chronic CHF (congestive heart failure) Chronic Hypertensive urgency Chronic Severe mitral regurgitation Chronic
[2018-02-01] MEDS: CARVEDILOL 25 MG TAB PO SCH ×2 (09:11→17:46)
[2018-02-01] MEDS: ASPIRIN EC 81 MG TAB PO SCH (09:11)
[2018-02-01] MEDS: FUROSEMIDE 40 MG TAB PO SCH (09:12)
[2018-02-01] MEDS: DIAZEPAM 5 MG TAB PO PRN ×2 (09:12→17:49)
[2018-02-01] MEDS: MINOXIDIL 10 MG TAB PO SCH ×2 (09:14→17:46)
[2018-02-01] MEDS: oxyCODONE IR 5 MG TAB PO PRN (09:15)
[2018-02-01] MEDS: LORazepam 2 MG/ML INJ IVP PRN (10:47)
--- NOTE | 2018-02-01 11:00 | SOAPPROG ---
JASON Progress Note Assessment/Plan: Assessment: 1. ESRD. Had HD yesterday per MWF schedule. Will run again later today for volume and high K. 2. CHF. Severe MS in bioprosthetic MV. For MV balloon next week. Tenuous volume status. Try for more UF today. 3. Hyperkalemia. Had good dialysis yesterday. AVF working well. Likely dietary. Change to low K diet. Repeat dialysis later today. Refused kayexalate this am. 4. Anemia. S/p PRBC tx. Continue procrit. Plan: 02/01/18 10:58 02/01/18 11:00 Subjective: Very anxious and depressed about his medical condition, understandably. Had dialysis yesterday with 3 L UF. Objective: Vital Signs Temp Pulse Resp BP Pulse Ox 36.8 C 100 22 H 129/66 H 97 02/01/18 08:00 02/01/18 09:11 02/01/18 08:00 02/01/18 09:11 02/01/18 08:00 Laboratory Results 02/01/18 03:58 02/01/18 03:58 01/31/18 02/01/18 02/02/18 05:59 05:59 05:59 Intake Total 400 2650 Output Total 350 Balance 400 2300 PT 14.8 SEC (12.0-15.0) 01/27/18 21:28 INR 1.14 (0.83-1.16) 01/27/18 21:28 Comfortable, somewhat tearful, NAD RRR, II/ sys and diastolic murmurs at the apex. JVD 14cm CTAB Abdom soft, nontender No LE edema L wrist avf with good thrill, collapses with arm elevation ICD10 Worksheet Patient Problems: Problems Problem Status Onset Chest pain Acute Fever Acute Shortness of breath Acute Tachycardia Acute ESRD (end stage renal disease) Chronic Dyspnea Acute ESRD on hemodialysis Acute Elevated troponin Acute Headache Acute Hypoxia Acute Pneumonia Acute Postoperative pneumothorax Acute Pulmonary edema Acute S/P mitral valve replacement with bioprosthetic valve Acute Anemia Chronic CHF (congestive heart failure) Chronic Hypertensive urgency Chronic Severe mitral regurgitation Chronic
--- NOTE | 2018-02-01 15:02 | HOSPPROG ---
Hospitalist Progress Note Assessment/Plan: #Dyspnea/Acute hypoxic resp failure: multifactorial with volume overload, mitral stenosis #Prosthetic mitral stenosis: initial repair 07/28. Balloon plasty planned for Wed. May ultimately warrant [facility] MVR #ESRD: cont HD. Repeat today for high K and volume overload #Anemia of renal disease: s/p 3 units RBCs. Cont Procrit #HTN: well-controlled on home meds #Hyperkalemia: repeat HD today, low K diet #Symptomatic uremia: cont HD per renal #SIRs/sepsis: resolved. No signs infection. Reps PCR, cultures negative. no vegetation on echo #Indeterminate trop: due to volume overload #Migraines: associated with HD #Anxiety: situational with prolonged hospitalization #Diet: renal #Disp: cont inpatient admission for HD, BP control and planned cardiac intervention Subjective: sats drop if takes off oxygen. Wants to go home Objective: Vital Signs Temp Pulse Resp BP Pulse Ox 36.7 C 88 16 124/69 H 96 02/01/18 12:00 02/01/18 12:00 02/01/18 12:00 02/01/18 12:00 02/01/18 12:00 Laboratory Results 02/01/18 03:58 02/01/18 03:58 01/31/18 02/01/18 02/02/18 05:59 05:59 05:59 Intake Total 400 2650 Output Total 350 Balance 400 2300 PT 14.8 SEC (12.0-15.0) 01/27/18 21:28 INR 1.14 (0.83-1.16) 01/27/18 21:28 - Time Spent With Patient Time Spent with Patient: greater than 25 minutes Time Spent with Patient: Greater than 25 minutes spent on this patients care, greater than 50% of time spent counseling, educating, and coordinating care regarding the above mentioned plan. - Physical Exam Constitutional: no apparent distress Eyes: anicteric sclera Ears, Nose, Mouth, Throat: moist mucous membranes Cardiovascular: regular rate and rhythym, systolic murmur Respiratory: other (dereased breath sounds right base) Gastrointestinal: normoactive bowel sounds, soft, non-tender abdomen Genitourinary: no bladder fullness Skin: warm Musculoskeletal: full muscle strength Neurologic: AAOx3, asterixes Psychiatric: depressed, flat affect ICD10 Worksheet Patient Problems: Problems Problem Status Onset Chest pain Acute Fever Acute Shortness of breath Acute Tachycardia Acute ESRD (end stage renal disease) Chronic Dyspnea Acute ESRD on hemodialysis Acute Elevated troponin Acute Headache Acute Hypoxia Acute Pneumonia Acute Postoperative pneumothorax Acute Pulmonary edema Acute S/P mitral valve replacement with bioprosthetic valve Acute Anemia Chronic CHF (congestive heart failure) Chronic Hypertensive urgency Chronic Severe mitral regurgitation Chronic
[2018-02-01] MEDS: OXYCODONE/APAP 5/325 TAB PO PRN (17:46)
[2018-02-01] MEDS: LORazepam 1 MG TAB PO PRN (20:15)
[2018-02-01] MEDS: GABAPENTIN 100 MG CAP PO SCH (20:15)
--- NOTE | 2018-02-02 08:23 | SOAPPROG ---
SOAP Progress Note Assessment/Plan: Assessment: 27 y/o man with previous BIOMVR and ESRD on HD with recurrent BIOMVR prosthetic MS and severe TR with severe pulmonary HTN. He has class IV NYHA sx with shortness of breath and hypoxemia at rest. No new events or complaints over last 24hrs. Vitals stable with no hypotension. Wt stable. PLAN: 1)no change in current meds. 2)high risk cardiac cath with balloon plasty of BIOMVR this saturday in hopes to alleviate MS. May need redo sternotomy with Mechanical MVR. 3)continue supplemental O2. 02/01/18 09:07 02/02/18 08:21 Subjective: no new complaints. Still GAMBINO at 10-20ft. Denies CP, syncope or PND. Objective: Vital Signs Temp Pulse Resp BP Pulse Ox 36.7 C 100 16 131/66 H 90 L 02/02/18 04:00 02/02/18 04:00 02/02/18 04:00 02/02/18 04:00 02/02/18 04:00 Laboratory Results 02/02/18 04:06 02/02/18 04:06 02/01/18 02/02/18 02/03/18 05:59 05:59 05:59 Intake Total 2650 960 Output Total 350 1600 Balance 2300 -640 PT 14.8 SEC (12.0-15.0) 01/27/18 21:28 INR 1.14 (0.83-1.16) 01/27/18 21:28 Physical Exam - Physical Exam General Appearance: alert EENT: normal ENT inspection Neck: full range of motion Respiratory: lungs clear Cardiac/Chest: regular rate, rhythm, gallop, JVD, systolic murmur Peripheral Pulses: 2+: carotid (R), carotid (L), femoral (R), femoral (L), dorsalis-pedis (R), dorsalis-pedis (L) Abdomen: non-tender, hepatomegaly, splenomegaly, No guarding Skin: warm/dry Extremities: pedal edema Neuro/Psych: alert ICD10 Worksheet Patient Problems: Problems Problem Status Onset Chest pain Acute Fever Acute Shortness of breath Acute Tachycardia Acute ESRD (end stage renal disease) Chronic Dyspnea Acute ESRD on hemodialysis Acute Elevated troponin Acute Headache Acute Hypoxia Acute Pneumonia Acute Postoperative pneumothorax Acute Pulmonary edema Acute S/P mitral valve replacement with bioprosthetic valve Acute Anemia Chronic CHF (congestive heart failure) Chronic Hypertensive urgency Chronic Severe mitral regurgitation Chronic
[2018-02-02] MEDS: FUROSEMIDE 40 MG TAB PO SCH (08:58)
[2018-02-02] MEDS: DIAZEPAM 5 MG TAB PO PRN (08:58)
[2018-02-02] MEDS: MINOXIDIL 10 MG TAB PO SCH ×2 (08:58→18:24)
[2018-02-02] MEDS: ASPIRIN EC 81 MG TAB PO SCH (08:58)
[2018-02-02] MEDS: CARVEDILOL 25 MG TAB PO SCH ×2 (08:58→18:25)
[2018-02-02] MEDS: OXYCODONE/APAP 5/325 TAB PO PRN ×2 (09:00→18:25)
[2018-02-02] MEDS: LORazepam 1 MG TAB PO PRN ×3 (09:52→23:25)
--- NOTE | 2018-02-02 10:45 | SOAPPROG ---
JASON Progress Note Assessment/Plan: Assessment: 1. ESRD. Had HD yesterday for volume but primarily for high K. K up to 5.6 today. Will run again tomorrow am. On low K diet. Reephasized with patient. 2. CHF. Severe MS in bioprosthetic MV. For MV balloon next week. Tenuous volume status. Try for more UF tomorrow, 3 L if tolerated. 3. Hyperkalemia. Changed to low K diet. Did not have great clearance with dialysis yesterday. Wonder if has AVF recirc or even cardiopulmonary recirc. Check recirc study and can do fistulagram if needed. Also, h/h trending down, TBili 1.8. Could he have hemolysis from his MV? Check hapto, LDH. 4. Anemia. H/h trending down. S/p PRBC tx. Continue procrit. 5. HTN. Well controlled. Continue minoxidil, amlodipine, coreg. Plan: 02/01/18 10:58 02/01/18 11:00 02/02/18 10:43 02/02/18 10:46 02/02/18 10:47 Subjective: Had dialysis last night. 2 L removed. No problems except for headache. Post potassium was still 5. Objective: Vital Signs Temp Pulse Resp BP Pulse Ox 36.9 C 107 H 20 152/79 H 98 02/02/18 08:53 02/02/18 08:53 02/02/18 08:53 02/02/18 08:53 02/02/18 08:53 Laboratory Results 02/02/18 04:06 02/02/18 04:06 02/01/18 02/02/18 02/03/18 05:59 05:59 05:59 Intake Total 2650 960 Output Total 350 1600 175 Balance 2300 -640 -175 PT 14.8 SEC (12.0-15.0) 01/27/18 21:28 INR 1.14 (0.83-1.16) 01/27/18 21:28 Comfortable, in chair RRR, +S4, 2/6 systolic and diastolic murmurs Decreased breath sounds in R base Abdo soft, nontender No LE edema ICD10 Worksheet Patient Problems: Problems Problem Status Onset Dyspnea Acute ESRD on hemodialysis Acute Elevated troponin Acute Headache Acute Pneumonia Acute Pulmonary edema Acute Hypoxia Acute Tachycardia Acute Fever Acute Chest pain Acute Shortness of breath Acute Severe mitral regurgitation Chronic Postoperative pneumothorax Acute S/P mitral valve replacement with bioprosthetic valve Acute ESRD (end stage renal disease) Chronic Anemia Chronic CHF (congestive heart failure) Chronic Hypertensive urgency Chronic
--- NOTE | 2018-02-02 16:03 | HOSPPROG ---
Hospitalist Progress Note Assessment/Plan: #Dyspnea/Acute hypoxic resp failure: multifactorial with volume overload, mitral stenosis #Prosthetic mitral stenosis: initial repair 07/28. Balloon plasty planned for Wed. May ultimately warrant [facility] MVR #ESRD: cont HD. Repeat today for high K and volume overload #Anemia of renal disease: s/p 3 units RBCs. Cont Procrit #HTN: well-controlled on home meds #Hyperkalemia: improved after HD. Low-K diet, advised him to not eat in cafeteria #Symptomatic uremia: cont HD per renal #SIRs/sepsis: resolved. No signs infection. Reps PCR, cultures negative. no vegetation on echo #Indeterminate trop: due to volume overload #Migraines: associated with HD #Anxiety: situational with prolonged hospitalization. Has trialed several SSRIs without success. Cont PRN Ativan. Encouraged family to bring in games, activities to help calm him #Diet: renal #Disp: cont inpatient admission for HD, BP control and planned cardiac intervention Subjective: very anxious Objective: Vital Signs Temp Pulse Resp BP Pulse Ox 36.2 C 89 18 118/68 93 02/02/18 14:52 02/02/18 14:52 02/02/18 14:52 02/02/18 14:52 02/02/18 14:52 Laboratory Results 02/02/18 04:06 02/02/18 04:06 02/01/18 02/02/18 02/03/18 05:59 05:59 05:59 Intake Total 2650 960 220 Output Total 350 1600 175 Balance 2300 -640 45 PT 14.8 SEC (12.0-15.0) 01/27/18 21:28 INR 1.14 (0.83-1.16) 01/27/18 21:28 - Time Spent With Patient Time Spent with Patient: greater than 25 minutes Time Spent with Patient: Greater than 25 minutes spent on this patients care, greater than 50% of time spent counseling, educating, and coordinating care regarding the above mentioned plan. - Physical Exam Constitutional: no apparent distress Eyes: PERRL Ears, Nose, Mouth, Throat: moist mucous membranes Cardiovascular: regular rate and rhythym Respiratory: no respiratory distress Gastrointestinal: normoactive bowel sounds, soft, non-tender abdomen Genitourinary: no bladder fullness Skin: warm Musculoskeletal: full muscle strength Neurologic: AAOx3, CN II-XII Intact Psychiatric: anxious (restless in his chair) ICD10 Worksheet Patient Problems: Problems Problem Status Onset Chest pain Acute Fever Acute Shortness of breath Acute Tachycardia Acute ESRD (end stage renal disease) Chronic Dyspnea Acute ESRD on hemodialysis Acute Elevated troponin Acute Headache Acute Hypoxia Acute Pneumonia Acute Postoperative pneumothorax Acute Pulmonary edema Acute S/P mitral valve replacement with bioprosthetic valve Acute Anemia Chronic CHF (congestive heart failure) Chronic Hypertensive urgency Chronic Severe mitral regurgitation Chronic
--- NOTE | 2018-02-02 16:06 | ASMTCMCOM ---
CM Note CM Note Notes: 02/02/2018 Case Management Note Discussed case with RN. Pt has surgery planned for Saturday pending arrival of necessary surgical equipment. Case Management d/c poc: to be determined. Case Management to follow. Date Signed: 02/02/2018 04:06 PM Electronically Signed By:Lindy Ibarra RN
[2018-02-02] MEDS: GABAPENTIN 100 MG CAP PO SCH (23:25)
[2018-02-03] MEDS: ZOLPIDEM TARTRATE 5 MG TAB PO SCH ×2 (00:04→20:56)
[2018-02-03] MEDS: LORazepam 1 MG TAB PO PRN ×3 (06:47→20:56)
[2018-02-03] MEDS: MINOXIDIL 10 MG TAB PO SCH ×2 (06:47→17:42)
[2018-02-03] MEDS: FUROSEMIDE 40 MG TAB PO SCH ×3 (08:30→16:12)
[2018-02-03] MEDS: ASPIRIN EC 81 MG TAB PO SCH ×2 (08:30→11:28)
[2018-02-03] MEDS: CARVEDILOL 25 MG TAB PO SCH ×3 (08:30→17:43)
--- NOTE | 2018-02-03 09:01 | SOAPPROG ---
JASON Progress Note Assessment/Plan: Assessment/Plan: ESRD: on HD MWF. - Will do HD today. - Will plan on HD again tomorrow given plans for surgery on Saturday. Anemia: Hgb continues to downtrend s/p transfusions, concerning for hemolysis. Pt on epo. Will continue to monitor. Hyperkalemia: persistent, fistula working well, more concerning for hemolytic process. - Recirc study today. - Will modulate on HD. - Will increase Lasix to BID. - On low K diet. - Will continue to monitor. Hypervolemia: reasonably controlled with dialysis and Lasix. HTN: BP ok on current meds. Subjective: No acute events overnight. Pt is quite tired, sleeping on HD and tolerating well. Objective: Vital Signs Temp Pulse Resp BP Pulse Ox 36.6 C 99 18 133/63 H 98 02/03/18 07:12 02/03/18 07:12 02/03/18 07:12 02/03/18 07:12 02/03/18 07:12 Laboratory Results 02/03/18 05:48 02/03/18 08:11 02/02/18 02/03/18 02/04/18 05:59 05:59 05:59 Intake Total 960 1350 Output Total 1600 225 Balance -640 1125 PT 14.8 SEC (12.0-15.0) 01/27/18 21:28 INR 1.14 (0.83-1.16) 01/27/18 21:28 General: alert and oriented, no acute distress Eyes: EOMI, PERRL OP: Clear CV: RRR Resp: nonlabored respirations on NC Abd: Soft, NT/ND Ext: no edema BLE Neuro: CN II-XII grossly intact, no asterixis ICD10 Worksheet Patient Problems: Problems Problem Status Onset Chest pain Acute Fever Acute Shortness of breath Acute Tachycardia Acute ESRD (end stage renal disease) Chronic Dyspnea Acute ESRD on hemodialysis Acute Elevated troponin Acute Headache Acute Hypoxia Acute Pneumonia Acute Postoperative pneumothorax Acute Pulmonary edema Acute S/P mitral valve replacement with bioprosthetic valve Acute Anemia Chronic CHF (congestive heart failure) Chronic Hypertensive urgency Chronic Severe mitral regurgitation Chronic
[2018-02-03] MEDS: OXYCODONE/APAP 5/325 TAB PO PRN ×2 (11:19→17:42)
--- NOTE | 2018-02-03 13:17 | HOSPPROG ---
Hospitalist Progress Note Assessment/Plan: #Dyspnea/Acute hypoxic resp failure: -multifactorial with volume overload, mitral stenosis -cont HD, Lasix increased per renal #Prosthetic mitral stenosis: initial repair 07/28. Balloon plasty planned for Wed. May ultimately warrant [email or web address] MVR #Anemia of renal disease: s/p 3 units RBCs. Cont Procrit #HTN: well-controlled on home meds #Hyperkalemia: Low-K diet, advised him to not eat in cafeteria #Symptomatic uremia: cont HD per renal #SIRs/sepsis: resolved. No signs infection. Reps PCR, cultures negative. no vegetation on echo #Indeterminate trop: due to volume overload #Migraines: associated with HD #Anxiety: situational with prolonged hospitalization. Has trialed several SSRIs without success. Cont PRN Ativan. Encouraged family to bring in games, activities to help calm him #Diet: renal #Disp: cont inpatient admission for HD, BP control and planned cardiac intervention Subjective: migraine after HD. Tired Objective: Vital Signs Temp Pulse Resp BP Pulse Ox 36.6 C 103 H 18 126/45 H 91 L 02/03/18 11:25 02/03/18 11:25 02/03/18 11:25 02/03/18 11:25 02/03/18 11:25 Laboratory Results 02/03/18 05:48 02/03/18 08:11 02/02/18 02/03/18 02/04/18 05:59 05:59 05:59 Intake Total 960 1350 Output Total 1600 225 Balance -640 1125 PT 14.8 SEC (12.0-15.0) 01/27/18 21:28 INR 1.14 (0.83-1.16) 01/27/18 21:28 - Time Spent With Patient Time Spent with Patient: greater than 25 minutes Time Spent with Patient: Greater than 25 minutes spent on this patients care, greater than 50% of time spent counseling, educating, and coordinating care regarding the above mentioned plan. - Physical Exam Constitutional: no apparent distress Eyes: PERRL Ears, Nose, Mouth, Throat: moist mucous membranes Cardiovascular: regular rate and rhythym, edema (trace pedal/ankle edema) Respiratory: no respiratory distress, other (decreased BS right base) Gastrointestinal: normoactive bowel sounds Genitourinary: no bladder fullness Skin: warm Musculoskeletal: full muscle strength Neurologic: AAOx3, CN II-XII Intact Psychiatric: anxious ICD10 Worksheet Patient Problems: Problems Problem Status Onset Chest pain Acute Fever Acute Shortness of breath Acute Tachycardia Acute ESRD (end stage renal disease) Chronic Dyspnea Acute ESRD on hemodialysis Acute Elevated troponin Acute Headache Acute Hypoxia Acute Pneumonia Acute Postoperative pneumothorax Acute Pulmonary edema Acute S/P mitral valve replacement with bioprosthetic valve Acute Anemia Chronic CHF (congestive heart failure) Chronic Hypertensive urgency Chronic Severe mitral regurgitation Chronic
[2018-02-03] MEDS: GABAPENTIN 100 MG CAP PO SCH (20:56)
[2018-02-04] MEDS: LORazepam 1 MG TAB PO PRN ×3 (07:51→22:13)
--- NOTE | 2018-02-04 07:53 | SOAPPROG ---
JASON Progress Note Assessment/Plan: Assessment: ESRD, HD yesterday and later today hyperkalemia (? hemolysis) mitral stenosis, recurrent after recent bioprosthetic MVR anemia functioning AVF Plan: HD today to OR tomorrow for valvuloplasty or potentially, mechanical MVR watch HGB 02/04/18 07:50 Subjective: tired, but slept OK frustrated, but ready to get better no cp sob nausea or vomiting appetite OK energy not great Objective: Vital Signs Temp Pulse Resp BP Pulse Ox 36.8 C 102 H 19 139/72 H 95 02/04/18 05:30 02/04/18 05:30 02/04/18 05:30 02/04/18 05:30 02/04/18 05:30 Laboratory Results 02/03/18 05:48 02/04/18 05:16 02/03/18 02/04/18 02/05/18 05:59 05:59 05:59 Intake Total 1350 1290 Output Total 225 1900 Balance 1125 -610 PT 14.8 SEC (12.0-15.0) 01/27/18 21:28 INR 1.14 (0.83-1.16) 01/27/18 21:28 Physical Exam - Physical Exam General Appearance: alert, thin Neck: normal inspection Respiratory: No rhonchi, No wheezing Cardiac/Chest: regular rate, rhythm, diastolic murmur, systolic murmur, No edema , No friction rub Abdomen: normal bowel sounds, non-tender, soft Extremities: other (AVF with good bruit and thrill), No swelling Neuro/Psych: alert, normal mood/affect, oriented x 3 ICD10 Worksheet Patient Problems: Problems Problem Status Onset Chest pain Acute Fever Acute Shortness of breath Acute Tachycardia Acute ESRD (end stage renal disease) Chronic Dyspnea Acute ESRD on hemodialysis Acute Elevated troponin Acute Headache Acute Hypoxia Acute Pneumonia Acute Postoperative pneumothorax Acute Pulmonary edema Acute S/P mitral valve replacement with bioprosthetic valve Acute Anemia Chronic CHF (congestive heart failure) Chronic Hypertensive urgency Chronic Severe mitral regurgitation Chronic
[2018-02-04] MEDS: CARVEDILOL 25 MG TAB PO SCH ×2 (08:17→17:37)
[2018-02-04] MEDS: FUROSEMIDE 40 MG TAB PO SCH ×2 (08:17→15:44)
[2018-02-04] MEDS: OXYCODONE/APAP 5/325 TAB PO PRN ×2 (08:17→20:37)
[2018-02-04] MEDS: ASPIRIN EC 81 MG TAB PO SCH (08:17)
--- NOTE | 2018-02-04 08:38 | HOSPPROG ---
Hospitalist Progress Note Assessment/Plan: #Dyspnea/Acute hypoxic resp failure: improving with HD, Lasix #Prosthetic mitral stenosis: initial repair 07/28. Balloon plasty vs. replacement tomorrow. Monitor H/H closely #Anemia of renal disease: s/p 3 units RBCs. Cont Procrit #ESRD: cont HD per renal #HTN: well-controlled on home meds #Hyperkalemia: HD today. Low-K diet; advised him to not eat in cafeteria #Symptomatic uremia: cont HD per renal #SIRs/sepsis: resolved. No signs infection. Reps PCR, cultures negative. no vegetation on echo #Indeterminate trop: due to volume overload #Migraines: associated with HD #Anxiety: situational with prolonged hospitalization. -Has trialed several SSRIs without success. Cont PRN Ativan. Encouraged family to bring in games, activities to help calm him #Diet: renal #Disp: cont inpatient admission for HD, BP control and planned cardiac intervention Subjective: feeling hopeful and anxious about surgery Objective: Vital Signs Temp Pulse Resp BP Pulse Ox 36.7 C 93 14 148/74 H 94 02/04/18 07:58 02/04/18 07:58 02/04/18 07:58 02/04/18 07:58 02/04/18 07:58 Laboratory Results 02/03/18 05:48 02/04/18 05:16 02/03/18 02/04/18 02/05/18 05:59 05:59 05:59 Intake Total 1350 1290 Output Total 225 1900 Balance 1125 -610 PT 14.8 SEC (12.0-15.0) 01/27/18 21:28 INR 1.14 (0.83-1.16) 01/27/18 21:28 - Time Spent With Patient Time Spent with Patient: greater than 25 minutes Time Spent with Patient: Greater than 25 minutes spent on this patients care, greater than 50% of time spent counseling, educating, and coordinating care regarding the above mentioned plan. - Physical Exam Constitutional: no apparent distress Eyes: PERRL Ears, Nose, Mouth, Throat: moist mucous membranes Cardiovascular: regular rate and rhythym Respiratory: other (decreased BS right base) Gastrointestinal: normoactive bowel sounds Genitourinary: no bladder fullness Skin: warm Musculoskeletal: full muscle strength Neurologic: AAOx3, CN II-XII Intact ICD10 Worksheet Patient Problems: Problems Problem Status Onset Chest pain Acute Fever Acute Shortness of breath Acute Tachycardia Acute ESRD (end stage renal disease) Chronic Dyspnea Acute ESRD on hemodialysis Acute Elevated troponin Acute Headache Acute Hypoxia Acute Pneumonia Acute Postoperative pneumothorax Acute Pulmonary edema Acute S/P mitral valve replacement with bioprosthetic valve Acute Anemia Chronic CHF (congestive heart failure) Chronic Hypertensive urgency Chronic Severe mitral regurgitation Chronic
[2018-02-04] MEDS: MINOXIDIL 10 MG TAB PO SCH ×3 (10:56→20:36)
--- NOTE | 2018-02-04 17:32 | PDCARPN ---
Cardiology Progress Note Chief Complaint: SOB Assessment/Plan: Assessment: bMVR stenosis HF anemia ESRD Plan: 02/04/18 17:28 Plan for BMV in AM. I spoke in length with patient about current valvular pathology. I explained risks of performing BMV including HF, tearing of MV leaflets, stroke, and possible . Dr. Farr agrees with the current plan. Fito understands and agrees with the risks and would like to proceed. SANJAY support as well as Dr. Farr/OR team will be present for any acute complications that may require emergent open heart procedure. Check labs tonight to assess Hgb level. Subjective: c/o GAMBINO Reviewed/Discussed With: multidisciplinary team Time Spent with Patient: greater than 25 minutes Time Spent with Patient: Greater than 25 minutes spent on this patients care, greater than 50% of time spent counseling, educating, and coordinating care regarding the above mentioned plan. Objective: Vital Signs (8 Hrs) Temp Pulse Resp BP Pulse Ox 02/04/18 16:00 36.9 C 100 26 H 145/81 H 96 02/04/18 12:00 37.1 C 96 14 139/87 H 96 Intake/Output (24 Hrs) 02/03/18 02/04/18 02/05/18 05:59 05:59 05:59 Intake Total 1350 1290 1310 Output Total 225 1900 200 Balance 1125 -610 1110 Intake: Oral (ml) 1350 1290 1310 Output: Urine (ml) 225 100 200 Toilet 100 Urinal 225 200 Dialysis Fluid Removed 1800 Other: Weight 75.1 kg 74.9 kg Intake Quantity Yes Sufficient Number of Voids Toilet 2 Urinal 1 Number of Stools Toilet 1 Result Diagrams: 02/03/18 05:48 02/04/18 05:16 - Physical Exam Constitutional: no apparent distress Eyes: PERRL Ears, Nose, Mouth, Throat: moist mucous membranes Cardiovascular: regular rate and rhythm Peripheral Pulses: 1+: femoral (R), femoral (L) Respiratory: no wheezes Gastrointestinal: normoactive bowel sounds Genitourinary: no suprapubic tenderness Skin: no rashes Musculoskeletal: no muscular tenderness Neurologic: AAOx3 Psychiatric: cooperative ICD10 Worksheet Patient Problems: Problems Problem Status Onset Chest pain Acute Fever Acute Shortness of breath Acute Tachycardia Acute ESRD (end stage renal disease) Chronic Dyspnea Acute ESRD on hemodialysis Acute Elevated troponin Acute Headache Acute Hypoxia Acute Pneumonia Acute Postoperative pneumothorax Acute Pulmonary edema Acute S/P mitral valve replacement with bioprosthetic valve Acute Anemia Chronic CHF (congestive heart failure) Chronic Hypertensive urgency Chronic Severe mitral regurgitation Chronic
[2018-02-04 18:08] LABS: PLATELET COUNT 192 10^3/uL (150-400)
[2018-02-04 18:17] LABS: INR 1.09 (0.83-1.16); PROTIME(PATIENT) 14.3 SEC (12.0-15.0)
[2018-02-04] MEDS: ZOLPIDEM TARTRATE 5 MG TAB PO SCH (22:13)
[2018-02-04] MEDS: GABAPENTIN 100 MG CAP PO SCH (22:13)
[2018-02-05] MEDS ORDERED: ASPIRIN EC 325 MG TAB PO ONE (06:00)
--- NOTE | 2018-02-05 06:47 | PDPROPOC ---
Sedation Plan of Care Sedation Plan of Care: mental status noted, patient educated of risks, benefits , alternatives, patient can tolerate sedation ASA Classification: ASA 2 Planned drugs: other Mallampati Score: Class 2 Mallampati Reference Image: Patient passed 3-3-2 rule?: Yes
[2018-02-05] MEDS ORDERED: IOPAMIDOL (ISOVUE-300) 100 ML BTL ONE (06:48)
--- NOTE | 2018-02-05 07:01 | PDANEPAE ---
ANE History of Present Illness here for MVR for MS ANE Past Medical History - Cardiovascular History Hx Hypertension: Yes Hx Arrhythmias: No Hx Chest Pain: No Hx Coronary Artery / Peripheral Vascular Disease: No Hx CHF / Valvular Disease: Yes Hx Palpitations: No Cardiovascular History Comment: htn. mitral valve prolapse. chf - Pulmonary History Hx COPD: No Hx Asthma/Reactive Airway Disease: No Hx Recent Upper Respiratory Infection: No Hx Oxygen in Use at Home: Yes Hx Sleep Apnea: No - Neurologic History Hx Cerebrovascular Accident: No Hx Seizures: No Hx Dementia: No Neurologic History Comment: migraines - Endocrine History Hx Diabetes: No - Renal History Hx Renal Disorders: Yes Renal History Comment: esrd. dialysis m-w-f @ [facility] - Liver History Hx Hepatic Disorders: No - Neurological & Psychiatric Hx Hx Neurological and Psychiatric Disorders: No - Cancer History Hx Cancer: No - Congenital Disorder History Hx Congenital Disorders: No - GI History Hx Gastrointestinal Disorders: No - Other Health History Other Health History: missing teeth from previous surgery. fistula left wrist area - Chronic Pain History Chronic Pain: Yes (back pain, head) - Surgical History Prior Surgeries: 07/10/17 multiple dental extractions with Catrina. gallbladder removal. fistula placement ANE Review of Systems Review of systems is: negative Review of Systems: - Exercise capacity Exercise capacity: <4 METS ANE Patient History - Allergies Allergies/Adverse Reactions: No Known Allergies Allergy (Unverified 02/08/18 13:18) - Home Medications Home medications: home medication list seen and reviewed Home Medications: Aspirin EC [Aspirin EC 81 mg (*)] 81 mg PO DAILY 01/12/18 [Last Taken 01/27/18] Carvedilol 25 mg PO BIDMEAL 01/12/18 [Last Taken 01/27/18 18:00] Diazepam [Valium 5 MG (*)] 5 mg PO TID PRN 01/12/18 [Last Taken 01/27/18] Gabapentin [Neurontin 100 MG (*)] 100 mg PO HS 01/12/18 [Last Taken 01/26/18] Minoxidil [Minoxidil 10 mg (*)] 20 mg PO BIDMEAL 01/12/18 [Last Taken 01/27/18 18:00] amLODIPine BESYLATE [Amlodipine Besylate] 10 mg PO DAILY 01/12/18 [Last Taken ] oxyCODONE HCL/ACETAMINOPHEN [Percocet 10-325 mg Tablet] 2 each PO MWF PRN [Last Taken 01/27/18] Furosemide [Lasix 40 MG (*)] 40 mg PO DAILY 01/24/18 [Last Taken 01/27/18] - NPO status NPO Status: no food or drink >8 hours - Smoking Hx Smoking Status: Current every day smoker - Family Anes Hx Family Hx Anesthesia Complications: None ANE Labs/Vital Signs - Labs Result Diagrams: 02/13/18 05:15 02/13/18 05:15 - Vital Signs Vital Signs: reviewed preoperatively; see RN documention for details ANE Physical Exam - Airway Neck exam: FROM Mallampati Score: Class 1 - Pulmonary Pulmonary: no respiratory distress - Cardiovascular Cardiovascular: regular rate and rhythym - ASA Status ASA Status: IV ANE Anesthesia Plan Anesthesia Plan: general endotracheal anesthesia Lines/Monitors: arterial line, central line, SANJAY
[2018-02-05] MEDS ORDERED: fentaNYL 100 MCG/2 ML INJ ONE ×3 (07:24→11:14)
[2018-02-05] MEDS ORDERED: PROPOFOL/EMULSION 500 MG/50 ML BOTTLE IV ONE (07:26)
[2018-02-05] MEDS ORDERED: IOPAMIDOL (ISOVUE 370) 100 ML BTL IV ONE (07:28)
[2018-02-05] MEDS ORDERED: MIDAZOLAM 2 MG/2 ML VIAL ONE (07:34)
--- NOTE | 2018-02-05 07:50 | SOAPPROG ---
JASON Progress Note Assessment/Plan: Assessment: ESRD, HD yesterday, today if necessary, plan on HD tomorrow hyperkalemia (? 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 +/- OR today for valvuloplasty or potentially, mechanical MVR watch HGB continue other therapies 02/04/18 07:50 02/05/18 07:46 Subjective: Family at bedside a bit anxious today, didn't sleep well last night no cp sob nausea or vomiting NPO today, but appetite has been fine no significant pain Objective: Vital Signs Temp Pulse Resp BP Pulse Ox 37.0 C 110 H 18 152/85 H 91 L 02/05/18 06:16 02/05/18 06:16 02/05/18 06:16 02/05/18 06:16 02/05/18 06:16 Laboratory Results 02/05/18 03:36 02/05/18 03:36 02/04/18 02/05/18 02/06/18 05:59 05:59 05:59 Intake Total 1290 1610 Output Total 1900 2000 Balance -610 -390 PT 14.3 SEC (12.0-15.0) 02/04/18 17:51 INR 1.09 (0.83-1.16) 02/04/18 17:51 Physical Exam - Physical Exam General Appearance: alert, no apparent distress Respiratory: rales, wheezing Cardiac/Chest: regular rate, rhythm, gallop, diastolic murmur, systolic murmur, No friction rub Abdomen: normal bowel sounds, non-tender, soft Extremities: other (functional AVF) Neuro/Psych: alert, normal mood/affect, oriented x 3 ICD10 Worksheet Patient Problems: Problems Problem Status Onset Chest pain Acute Fever Acute Shortness of breath Acute Tachycardia Acute ESRD (end stage renal disease) Chronic Dyspnea Acute ESRD on hemodialysis Acute Elevated troponin Acute Headache Acute Hypoxia Acute Pneumonia Acute Postoperative pneumothorax Acute Pulmonary edema Acute S/P mitral valve replacement with bioprosthetic valve Acute Anemia Chronic CHF (congestive heart failure) Chronic Hypertensive urgency Chronic Severe mitral regurgitation Chronic
[2018-02-05] MEDS ORDERED: ROCURONIUM 50 MG/5 ML VIAL ONE (07:51)
[2018-02-05] MEDS ORDERED: ESMOLOL HCL 100 MG/10 ML VIAL IV ONE (07:51)
[2018-02-05] MEDS ORDERED: ePHEDrine SULFATE 25 MG/5 ML SYR ONE (08:25)
[2018-02-05] MEDS ORDERED: PROTAMINE SULFATE 50 MG/5 ML VIAL IVP ONE ×3 (10:31→11:30)
[2018-02-05] MEDS: MINOXIDIL 10 MG TAB PO SCH ×2 (11:20→17:10)
[2018-02-05] MEDS: CARVEDILOL 25 MG TAB PO SCH ×2 (11:20→16:49)
[2018-02-05] MEDS: FUROSEMIDE 40 MG TAB PO SCH ×2 (11:21→17:02)
[2018-02-05] MEDS: ASPIRIN EC 81 MG TAB PO SCH (11:21)
[2018-02-05] MEDS ORDERED: fentaNYL 100 MCG/2 ML INJ IVP ONE (11:30)
[2018-02-05] MEDS ORDERED: LIDO/EPI 1% **for epidural** 30 ML SDV ONE (11:59)
--- NOTE | 2018-02-05 12:06 | CPIP ---
[f rep st] INVASIVE CARDIAC PROCEDURE DATE OF PROCEDURE: 02/05/2018 INDICATION FOR PROCEDURE: Heart failure, severe mitral stenosis. PROCEDURE: 1. Nonselective left groin sheathogram. 2. 8-Tongan sheath right common femoral vein. 3. Balloon of transseptal puncture. 4. Ballooning of prosthetic mitral valve with Inoue 28 mm balloon. HISTORY: Briefly, this is a 27-year-old male with history of bioprosthetic mitral valve replacement. The patient unfortunately in the last 6 months has been having increasing prosthetic gradient acros s his valve resulting in numerous admissions for heart failure. I have spoken at length with the pat shannon and the patient's family as well as Dr. Farr from CT surgery. The patient has also end-stage r enal disease, needing a kidney transplant. Given the upcoming issues regarding his kidney issues as well as the fact that he had a recent open-heart procedure, we decided to proceed with a balloon mitr al valvuloplasty as a temporizing measure to, A, alleviate his symptoms and B, get him to his transpl ant as soon as possible. Dr. Farr has spoken to the patient about future placement of mechanical mi tral valve replacement and the patient is aware this would be a procedure in the future if he should have worsening heart failure symptoms despite our procedure today. DESCRIPTION OF PROCEDURE: After informed consent was obtained, the patient was brought to [facility] where the patient was electively intubated. 2 g Ancef were measured perioperatively. AN 8-Tongan sheath w as placed in the left common femoral artery verified angiographically. A 6-Tongan sheath right commo n femoral vein upsized to an 8-Tongan sheath and upsized to a Anderson 8-Tongan sheath. Transseptal cr ossing was performed with CT guidance and the Anderson catheter and wire. The septum was crossed under SANJAY guidance with a Anderson catheter wire. A Theresa wire was placed in the left atrium. Patient was a dministered 11,000 of heparin IV. The atrial septum was dilated with a 14-Tongan sheath. After this was performed, the sheath was removed. We then advanced an Inoue balloon after being prepped approp riately in the back table. however, the Inoue balloon had trouble traversing the area. We decided t o pull the balloon out and re-dilate with a 14-Tongan dilator. After this was performed, we tried ag ain the Inoue balloon, but this was having difficulty crossing. We then pulled the balloon out and t hen decided to balloon this area with a 6.0 x 20 balloon. This was dilated up at 8 atmospheres. Aft er this was performed the balloon was removed. We then advanced the Inoue balloon again, which much easier traversed the area. At this time the balloon itself was then attempted to cross the valve aft er the Theresa wire was removed and the stylet was introduced. Multiple attempts of advancing the ballo on across the valve resulted in the balloon ending up in the side struts and suture lines of the valv e. Eventually, the balloon did cross the valve partially into the anulus. We decided to proceed wit h inflation at this point, since this was as much purchase as we would obtain. Numerous inflations o ccurred with the balloon being partially across the valve. On our last inflation the balloon did antonia rate forward, thus we did get a larger inflation. However, again, the balloon was never fully across the valve because of interference with most likely suture line/struts. After this was performed, th e catheter was pulled back into the left atrium. SANJAY imaging was obtained. Pre-gradient hemodynamic s before any balloon inflation showed a gradient of approximately 17 mm from the LA to the LV via pig tail that we had in the left ventricle. The gradient from SANJAY showed approximately 15 mm gradient at baseline. Post balloon inflation, the gradient was reduced to 10 mm on SANJAY. Simultaneous pressures from the LA and the LV were then obtained, which then showed almost near normalization of the left a trial and left ventricular pressures with only a gradient of approximately 5. At this time we were p leased with the results and given the difficulty of having the balloon cross the valve in the 1st khang ce we decided that at this point, we have significantly achieved reduction in his gradient. The shaffer th was pulled back in the right atrium and straightened out. The right groin was closed with pursest ring suture. Left groin was closed with 8-Tongan Angio-Seal. Patient tolerated the procedure with no complications. IMPRESSION: Successful balloon mitral valvuloplasty reducing a mean T-gradient 15-10 and a cathed gr adient of 17 down to 5. PLAN: The patient will be admitted to the ICU. The right groin was closed with a pursestring suture that will be removed in 6 hours time. The patient will have 3 hours bed rest. Further orders anju mercado clinical correlation. /[id number]/MODL
--- NOTE | 2018-02-05 12:33 | HOSPPROG ---
Hospitalist Progress Note Assessment/Plan: #Dyspnea/Acute hypoxic resp failure: improving with HD, Lasix #Prosthetic mitral stenosis: initial repair 07/28. -s/p Balloon mitral valve valvuloplasty today #Hyperkalemia: -K is 6.2 today. Had HD yesterday, will need again today #Acute bleeding from femoral site: Has stopped with compression from Nurse. IR team applying epi -Will repeat an H/H this afternoon given bleed. Last check mid morning. #Anemia of renal disease: s/p 3 units RBCs. Cont Procrit -Hgb is stable (7.3) today, may need transfusion soon. -will repeat labs in am. #ESRD: cont HD per renal. #HTN: well-controlled on home meds -Will hold meds today given sedation and procedure and femoral bleed #Acute Hypoxic Resp Failure: -transient, should improve #Post procedure encephalopathy, transient, should improve #Symptomatic uremia: cont HD per renal #SIRs/sepsis: resolved. No signs infection. Reps PCR, cultures negative. no vegetation on echo #Indeterminate trop: due to volume overload #Migraines: associated with HD #Anxiety: situational with prolonged hospitalization. -Has trialed several SSRIs without success. Cont PRN Ativan. Encouraged family to bring in games, activities to help calm him #Diet: renal #Disp: cont inpatient admission for HD, BP control and planned cardiac intervention total critical care time is 35 minutes in this patient s/p balloon mitral valve valvuloplasty, femoral bleed, anemia, and Hyperkalemia. Cont care is step down. Subjective: no cp or sob. some confusion. bleeding from cath site Objective: Vital Signs Temp Pulse Resp BP Pulse Ox 37.1 C 107 H 19 125/56 H 87 L 02/05/18 11:37 02/05/18 11:37 02/05/18 11:37 02/05/18 11:37 02/05/18 11:37 Laboratory Results 02/05/18 11:20 02/05/18 11:20 02/04/18 02/05/18 02/06/18 05:59 05:59 05:59 Intake Total 1290 1610 Output Total 1900 2000 Balance -610 -390 PT 14.3 SEC (12.0-15.0) 02/04/18 17:51 INR 1.09 (0.83-1.16) 02/04/18 17:51 - Physical Exam Eyes: PERRL, EOMI Ears, Nose, Mouth, Throat: moist mucous membranes, hearing normal Cardiovascular: regular rate and rhythym Respiratory: no respiratory distress, no rales or rhonchi, clear to auscultation Gastrointestinal: normoactive bowel sounds Skin: warm Psychiatric: encephalopathic Lymph, Heme, Immunologic: No petechiae ICD10 Worksheet Patient Problems: Problems Problem Status Onset Chest pain Acute Fever Acute Shortness of breath Acute Tachycardia Acute ESRD (end stage renal disease) Chronic Dyspnea Acute ESRD on hemodialysis Acute Elevated troponin Acute Headache Acute Hypoxia Acute Pneumonia Acute Postoperative pneumothorax Acute Pulmonary edema Acute S/P mitral valve replacement with bioprosthetic valve Acute Anemia Chronic CHF (congestive heart failure) Chronic Hypertensive urgency Chronic Severe mitral regurgitation Chronic
--- NOTE | 2018-02-05 12:41 | ASMTCMCOM ---
CM Note CM Note Notes: Patient is s/p balloon mitral valvuloplasty to alleviate his heart failure symptoms and help him move closer to kidney transplant. He is stable in the ICU, and nephrology is monitoring his need for HD. Patient's family has been at bedside today. Case Managment will follow for discharge planning. Date Signed: 02/05/2018 12:40 PM Electronically Signed By:Kasey Molina RN
[2018-02-05] MEDS: LORazepam 1 MG TAB PO PRN ×2 (13:06→19:26)
[2018-02-05] MEDS: OXYCODONE/APAP 5/325 TAB PO PRN ×2 (13:56→21:33)
[2018-02-05] MEDS ORDERED: LORazepam 2 MG/ML INJ IVP ONE (14:32)
[2018-02-05] MEDS ORDERED: LORazepam 2 MG/ML INJ ONE (14:34)
[2018-02-05] MEDS ORDERED: METOPROLOL TARTRATE 5 MG/5 ML INJ IVP ONE (14:45)
[2018-02-05] MEDS ORDERED: NITROGLYCERIN/D5W 50 MG/250 ML BOTTLE IV ONE (15:18)
--- NOTE | 2018-02-05 16:46 | ECHO ---
[email or web address] [place] [id number] Main: [phone] Fax: Transthoracic Echocardiogram Name: CONRADO ESPINOSA MR#: [id number] Study Date: 02/05/2018 Study Time: 03:05 PM Date of : 1990 Age: 27 year(s) Height: ( ) Weight: ( ) BSA: Gender: Male Examination: Limited Echo Indication: stat echo S/P MVR balloon valvuloplasty Image Quality: Contrast: Requested by: Navjot Anderson BP: 150 mmHg/115 mmHg Heart Rate: Rhythm: Indication: stat echo S/P MVR balloon valvuloplasty Procedure Staff Home Aide: Anne Valadez [facility] Reading Physician: Abdoulaye Neville MD Requesting Provider: Conclusions: No pericardial effusion. Concentric left ventricular hypertrophy with a hyperdynamic left ventricle. Mitral valve prosthesis mean gradient of 20 mm of mercury. Right ventricular systolic pressure of 87 mm of mercury Measurements: Chambers Valvular Assessment AV/MV Valvular Assessment TV/PV Normal Normal Normal Name Value Range Name Value Range Name Value Range MV meanP mmHg ( - ) TR Vmax: 4.39 mm/s ( - ) TR PGmax: 77 mmHg ( - ) syst. PAP: 87 mmHg ( - ) Continued Measurements: Valvular Assessment AV/MV Valvular Assessment TV/PV Name Value Name Value MV VTI: 56.30 cm CVP (est.): 10 mmHg Findings: Left Ventricle: Normal size left ventricle. Moderate concentric LV hypertrophy. Normal global systolic LV function. Right Ventricle: Mildly dilated right ventricle. Normal RV function. Mitral Valve: A bioprothetic mitral valve is in place. The mitral valve prosthesis is restricted. Mean gradient is 20mmHg. Trivial MV prosthesis regurgitation. Tricuspid Valve: Moderate tricuspid regurgitation is present. Right ventricular systolic pressure measures 87mmHg. Patient: CONRADO ESPINOSA Study Date: 02/05/2018 Page 1 of 2 03:05 PM The pulmonary artery pressure is severely increased. Pericardium: No pericardial effusion. There is a pleural effusion. (No Signature Object) Patient: CONRADO ESPINOSA Study Date: 02/05/2018 Page 2 of 2 03:05 PM [id number]
[2018-02-05] MEDS ORDERED: *HTN PROTOCOL*NITROGLYCERIN/DEXTR IV SCH (19:00)
[2018-02-05] MEDS: ACETAMINOPHEN 325 MG TAB PO PRN (19:25)
[2018-02-05] MEDS: [UNRECOGNIZED DRUG - REMARK] MISC SCH (19:37)
--- NOTE | 2018-02-05 20:55 | GCON ---
[f rep st] CONSULTATION PULMONARY CONSULTATION DATE OF CONSULTATION: 01/16/2018 REASON FOR CONSULTATION: Acute respiratory failure, pulmonary edema. HISTORY OF PRESENT ILLNESS: The patient is a 27-year-old with multiple medical problems. There is a history of end-stage renal disease secondary to a solitary kidney, on chronic hemodialysis, congesti ve heart failure with mitral valve prolapse and a previous mitral valve replacement with a bioprosthe tic valve. He has a previous AV shunt and is status post cholecystectomy. He was recently discharge d from the hospital and readmitted with increasing shortness of breath. admission was on 01/27. He has had a complicated course with hypervolemia requiring additional dialysis, anemia requiring transf usion and hyperkalemia requiring treatment. Today, he had a balloon angioplasty, transseptal, of his bioprosthetic mitral valve, which was found to be deteriorating. This was partially successful in r educing gradient across the valve. He was returned to the intensive care unit following the procedur e. He initially did well but subsequently developed tachypnea and tachycardia. This was associated with hypoxemia in the 70s and hypertension. Acute pulmonary congestion was noted and chest x-ray skye wed bilateral diffuse impressive pulmonary edema. He was placed on BiPAP 5/15 on 100% with improveme nt in his tachypnea and oxygenation. Heart rate came down. He was given Ativan for anxiety and 10 m g of metoprolol. He was undergoing hemodialysis at the time and this was continued with a goal of 5 L fluid removal. With the above therapies, he significantly improved, became less tachypneic with sa turations in the high 90s. Blood pressure remained stable despite fluid removal. Heart rate improve d from approximately 150 to approximately 120. PAST MEDICAL HISTORY: As mentioned above in HPI. CURRENT MEDICATIONS: Amlodipine, aspirin, EPO, Lasix 40 mg b.i.d., Neurontin 100 mg at h.s., minoxid il 20 mg b.i.d., p.r.n. morphine for pain, nitroglycerin, Zolpidem at h.s. and p.r.n. medications inc luding oxycodone. DRUG ALLERGIES: No known drug allergies. SOCIAL HISTORY: The patient does smoke cigarettes. He lives with his mother in [place]. Alcohol is denied. FAMILY HISTORY: Negative for renal disease or valvular heart disease. REVIEW OF SYSTEMS: Unobtainable at this time. Previously unremarkable per others except as mentione d above. PHYSICAL EXAMINATION: GENERAL: Reveals a somewhat thin gentleman currently on BiPAP. He is tolerat ing this well. VITAL SIGNS: Blood pressure is approximately 125/50, heart rate 120 with sinus tachy cardia on the monitor. Respiratory rate is 20-24. On BiPAP, saturations are 100%. He is afebrile. HEENT: Remarkable for the BiPAP being in place. Pupils appear equal. Jugular venous distention is present. There is no lymphadenopathy or thyromegaly. PULMONARY: The chest reveals coarse breath s ounds, right greater than left. There are a few rales at the lateral bases. The heart is tachycardi c. A systolic murmur is present. A gallop does appear to be present. P2 is increased. ABDOMEN: S oft, nontender. Bowel sounds are present but diminished. EXTREMITIES: Remarkable for trace edema. NEUROLOGIC: Grossly within normal limits. LABORATORY DATA: Chest x-ray is as reported above and shows bilateral impressive pulmonary edema. White blood cell count is 6300. Hematocrit post 1 unit of blood given during hemodialysis was 25. P T and PTT were normal yesterday. Arterial blood gas initially with his respiratory difficulty prior to BiPAP showed a pH of 7.27, pCO2 of 59, and pO2 of 51. On BiPAP with 100% oxygen, the pH is 7.43, pCO2 of 41 and pO2 62. Saturations are 92. Chemistry shows a sodium of 136, potassium 4.2, BUN 24, and creatinine 3.5 during dialysis. Glucose was 97, calcium 8.9. BNP was elevated at 28,000. ASSESSMENT: 1. Acute respiratory failure associated with diffuse pulmonary edema. He is responding to BiPAP and fluid removal with hemodialysis. Intubation does not appear to be needed at this time. He will be followed closely. BiPAP will be kept in place for now. Cardiac echo shows the valve to be functioni ng but it remains compromised. Pressure across the valve is up somewhat compared to immediately post procedure. Mitral valve replacement is being considered in a couple a days. 2. Chronic renal failure on hemodialysis. Hyperkalemia noted earlier now resolved with hemodialysis . Hemodialysis will be needed daily over the next several days per Renal. 3. Anemia, chronic secondary to renal failure. He did receive another unit of blood today. Hematoc rit is stable at 25. 4. Systemic hypertension secondary to renal disease. Appropriately controlled on his usual medicati ons. PLAN AND RECOMMENDATIONS: The patient will be kept in the intensive care unit on BiPAP. Respiratory status will be followed closely. Weights and Is and Os will be monitored. Hemodialysis will be rep eated tomorrow with further fluid removal. Current medications will be continued. Laboratory and ch est x-ray will be followed. Further plans and recommendations will be made based on his progress over the next 12-24 hours. /[id number]/MODL
[2018-02-05] MEDS: GABAPENTIN 100 MG CAP PO SCH (21:33)
[2018-02-05] MEDS: ZOLPIDEM TARTRATE 5 MG TAB PO SCH (21:33)
[2018-02-06] MEDS: LORazepam 1 MG TAB PO PRN ×3 (04:01→19:06)
[2018-02-06 05:59] LABS: PLATELET COUNT 171 10^3/uL (150-400)
[2018-02-06] MEDS: MINOXIDIL 10 MG TAB PO SCH ×2 (07:51→18:32)
[2018-02-06] MEDS: [UNRECOGNIZED DRUG - REMARK] MISC SCH ×2 (07:53→19:25)
[2018-02-06] MEDS: ASPIRIN EC 81 MG TAB PO SCH (07:53)
[2018-02-06] MEDS: FUROSEMIDE 40 MG TAB PO SCH ×2 (07:53→14:29)
--- NOTE | 2018-02-06 09:31 | SOAPPROG ---
SOAP Progress Note Assessment/Plan: Assessment/Plan: ESRD: on HD MWF. - Will do HD again today for more fluid removal. - Will plan on intraoperative HD tomorrow. - May need daily HD perioperatively. Anemia: Hgb continues to downtrend s/p transfusions, concerning for hemolysis. - Pt on epo. - Will transfuse 1 unit PRBCs on HD today. - Will continue to monitor. Hyperkalemia: K ok with daily dialysis. - Will do HD again today. - Will plan on HD again tomorrow. - Pt is on Lasix. - Will place on low K diet. - Will continue to monitor. Hypervolemia: pt with flash pulmonary edema yesterday, breathing now improved with fluid removal on HD yesterday. Will do HD with fluid removal again today. HTN: BP ok on current meds. Subjective: Pt had flash pulmonary edema with respiratory decompensation yesterday after procedure, sent to ICU. He was dialyzed with fluid removal, transfused, and now is back on NC, still has dyspnea when laying down and coughing but breathing is improved. Objective: Vital Signs Temp Pulse Resp BP Pulse Ox 37.3 C 105 H 17 97/39 L 100 02/06/18 04:00 02/06/18 08:00 02/06/18 08:00 02/06/18 08:00 02/06/18 08:00 Laboratory Results 02/06/18 05:45 02/06/18 05:45 02/05/18 02/06/18 02/07/18 05:59 05:59 05:59 Intake Total 1610 846 Output Total 1894 3308 Balance -390 -7556 PT 14.3 SEC (12.0-15.0) 02/04/18 17:51 INR 1.09 (0.83-1.16) 02/04/18 17:51 General: alert and oriented, no acute distress Eyes: EOMI, PERRL OP: Clear CV: RRR Resp: on NC, coarse breath sounds and scattered wheezes, air movement noted throughout Abd: Soft, NT/ND Ext: no edema BLE Neuro: CN II-XII grossly intact, no asterixis Psych: cooperative Access: LUE AVF ICD10 Worksheet Patient Problems: Problems Problem Status Onset Chest pain Acute Fever Acute Shortness of breath Acute Tachycardia Acute ESRD (end stage renal disease) Chronic Dyspnea Acute ESRD on hemodialysis Acute Elevated troponin Acute Headache Acute Hypoxia Acute Pneumonia Acute Postoperative pneumothorax Acute Pulmonary edema Acute S/P mitral valve replacement with bioprosthetic valve Acute Anemia Chronic CHF (congestive heart failure) Chronic Hypertensive urgency Chronic Severe mitral regurgitation Chronic
[2018-02-06] MEDS: OXYCODONE/APAP 5/325 TAB PO PRN ×2 (09:59→19:06)
--- NOTE | 2018-02-06 10:20 | ECHO ---
[email or web address] [address] [address] Main: [phone] Fax: Transthoracic Echocardiogram Name: CONRADO ESPINOSA MR#: [id number] Study Date: 02/06/2018 Study Time: 08:47 AM Date of : 1990 Age: 27 year(s) Height: 175.3 cm (69 in.) Weight: 74.39 kg (164 lb.) BSA: 1.9 m2 Gender: Male Examination: Echo Indication: S/P 1 day balloon valuloplsty of MVR Image Quality: Contrast: Requested by: Mason Jackson BP: 118 mmHg/40 mmHg Heart Rate: Rhythm: Indication: S/P 1 day balloon valuloplsty of MVR Procedure Staff Correctional Sergeant: Sarah Gutierrez RDCS Reading Physician: Abdoulaye Neville MD Requesting Provider: Conclusions: No pericardial effusion. Preserved LV systolic function with ejection fraction of 70%. No new regional wall motion abnormalities. Mitral valve prosthesis with mean gradient of 20 mm of mercury. Aortic valve thickening with peak gradient of 20 mm of mercury mean gradient of 11 mm of mercury. Right ventricular systolic pressure is 75 mm of mercury. There is moderate tricuspid regurgitation. Compared to yesterday there has been a slight decrease in pulmonary artery estimated pressure. Measurements: Chambers Valvular Assessment AV/MV Valvular Assessment TV/PV Normal Normal Normal Name Value Range Name Value Range Name Value Range Ao Tiffanie (MM): 2.8 cm (2.2 cm-3.7 AV Vmax: 2.21 m/s (1 m/s-1.7 TR Vmax: 4.10 mm/s ( - ) cm) m/s) TR PGmax: 67 mmHg ( - ) IVSd (2D): 0.8 cm (0.6 cm-1.1 AV meanP mmHg ( - ) syst. PAP: 77 mmHg ( - ) cm) MV meanP mmHg ( - ) LVDd (2D): 4.3 cm (4.2 cm-5.9 cm) LVDs (2D): 2.6 cm (2.1 cm-4 cm) LVPWd (2D): 1.3 cm (0.6 cm-1 cm) LVEF (2D): 69 (>=54 %) EF Range: 70-75 % Continued Measurements: Chambers Valvular Assessment AV/MV Valvular Assessment TV/PV Name Value Name Value Name Value LADs: 4.5 cm MV VTI: 85.70 cm CVP (est.): 10 mmHg LADs Lon.8 cm LA Area: 26.1 cm2 Patient: CONRADO ESPINOSA Study Date: 02/06/2018 Page 1 of 2 08:47 AM Findings: Left Ventricle: Normal size left ventricle. Concentric LV hypertrophy. Global hypercontractility of the left ventricle. The ejection fraction is estimated to be 70-75 %. No regional wall motion abnormality. LV septal motion consistent with conduction abnormality.. Right Ventricle: Normal size right ventricle. Left Atrium: The left atrium is moderately to severely dilated. Right Atrium: The right atrium is mildly dilated. Mitral Valve: A bioprosthetic mitral valve is in place.. The posterior bioprosthetic leaflet is thickened and stenotic. Mean gradient across the valve is 20-22mmHG. . Aortic Valve: Mild aortic cusp calcification is noted. AV max PG is 20mmHG. AV mean PG is 11mmHG.. Tricuspid Valve: The tricuspid valve is normal in appearance and function. Moderate tricuspid regurgitation is present. The pulmonary artery pressure is moderately to severely increased. RVSP is 75 mmHG.. Pulmonic Valve: The pulmonic valve is normal in appearance and function. Aorta: The aorta is normal. Pericardium: No pericardial effusion. Left side pleural effusion. (No Signature Object) Patient: CONRADO ESPINOSA Study Date: 02/06/2018 Page 2 of 2 08:47 AM [id number]
[2018-02-06] MEDS: EPOETIN ALFA 10,000 UNIT/ML VIAL IVP SCH (11:41)
--- NOTE | 2018-02-06 11:42 | HOSPPROG ---
Hospitalist Progress Note Assessment/Plan: #Dyspnea/Acute hypoxic resp failure/Pulmonary Edema: -improving with HD, will get more fluid removed today -Likely MV surgery tomorrow #Prosthetic mitral stenosis: initial repair 07/28. -s/p Balloon mitral valve valvuloplasty today. -the gradient appears to still be elevated and had pulm edema -Likely will have surgery tomorrow #Hyperkalemia: -HD #Acute bleeding from femoral site: resolved #Anemia of renal disease: -will get more blood during dialysis today #ESRD: cont HD per renal. -HD again today #HTN: well-controlled on home meds -home meds #Symptomatic uremia: cont HD per renal #SIRs/sepsis: resolved. No signs infection. Reps PCR, cultures negative. no vegetation on echo #Indeterminate trop: due to volume overload #Migraines: associated with HD #Pain: will change from MS to Dilaudid #Anxiety: situational with prolonged hospitalization. -Has trialed several SSRIs without success. Cont PRN Ativan. Encouraged family to bring in games, activities to help calm him #Diet: renal #Disp: cont inpatient admission for HD, BP control and planned cardiac intervention Subjective: breathing is better, but still on 4 L. Hemodynamically stable. no cp or sob. Objective: Vital Signs Temp Pulse Resp BP Pulse Ox 37.3 C 111 H 21 H 133/56 H 97 02/06/18 04:00 02/06/18 11:00 02/06/18 11:00 02/06/18 11:00 02/06/18 11:00 Laboratory Results 02/06/18 05:45 02/06/18 05:45 02/05/18 02/06/18 02/07/18 05:59 05:59 05:59 Intake Total 1610 846 Output Total 1999 5139 Balance -390 -4064 PT 14.3 SEC (12.0-15.0) 02/04/18 17:51 INR 1.09 (0.83-1.16) 02/04/18 17:51 - Physical Exam Constitutional: no apparent distress Eyes: PERRL, EOMI Ears, Nose, Mouth, Throat: moist mucous membranes, hearing normal Cardiovascular: regular rate and rhythym Respiratory: no respiratory distress, reduced air movement Gastrointestinal: normoactive bowel sounds, soft, non-tender abdomen, no palpable masses Skin: warm Musculoskeletal: full muscle strength Neurologic: AAOx3 Psychiatric: interacting appropriately, not anxious, not encephalopathic Lymph, Heme, Immunologic: No petechiae ICD10 Worksheet Patient Problems: Problems Problem Status Onset Chest pain Acute Fever Acute Shortness of breath Acute Tachycardia Acute ESRD (end stage renal disease) Chronic Dyspnea Acute ESRD on hemodialysis Acute Elevated troponin Acute Headache Acute Hypoxia Acute Pneumonia Acute Postoperative pneumothorax Acute Pulmonary edema Acute S/P mitral valve replacement with bioprosthetic valve Acute Anemia Chronic CHF (congestive heart failure) Chronic Hypertensive urgency Chronic Severe mitral regurgitation Chronic
[2018-02-06] MEDS: EPOETIN ALFA 10,000 UNIT/ML VIAL SC SCH (11:43)
[2018-02-06] MEDS: HYDROmorphONE/DILAUDID 1 MG/ML INJ IVP PRN ×4 (13:00→19:06)
--- NOTE | 2018-02-06 14:23 | PDINTPN ---
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 Off BiPAP, on 4 L of nasal cannula oxygen. No further respiratory distress. Chronic renal failure: On hemodialysis, with fluid removal. Mitral valve disease: For redo mitral valve replacement tomorrow if all goes well. Systemic hypertension. Long-standing. On nitroglycerin drip as well as oral medications. Drip is being weaned. Anemia: Hematocrit 21 today. For 1 unit of blood with hemodialysis. Plan: Continue care in the intensive care unit. Continue hemodialysis with fluid removal. 1 unit of PRBCs today. Continue oxygen as needed. Follow-up chest x-ray post hemodialysis this afternoon. 30 min of critical care time spent directly with the patient. Discussed with the patient and his family, nursing, renal, cardiovascular surgery, and the ICU multi disciplinary team. Subjective: Doing well today. Off BiPAP since last night. On hemodialysis. Objective: Vital Signs Temp Pulse Resp BP Pulse Ox 37.1 C 113 H 24 H 125/54 H 99 02/06/18 11:44 02/06/18 11:44 02/06/18 11:44 02/06/18 11:44 02/06/18 11:44 Laboratory Results 02/06/18 05:45 02/06/18 05:45 02/05/18 02/06/18 02/07/18 05:59 05:59 05:59 Intake Total 1610 846 Output Total 1999 4910 Balance -390 -4063 PT 14.3 SEC (12.0-15.0) 02/04/18 17:51 INR 1.09 (0.83-1.16) 02/04/18 17:51 CXR: Pending post hemodialysis Physical Exam - Physical Exam General Appearance: alert, no apparent distress EENT: PERRL/EOMI, other (Nasal cannula in place at 4-5 L) Neck: normal inspection (No obvious jugular venous distension) Respiratory: decreased breath sounds (Bilaterally), rales (Rales present at bases, both anteriorly and posteriorly.), No respiratory distress, No rhonchi, No wheezing Cardiac/Chest: tachycardia (Sinus approximately 115), systolic murmur Abdomen: normal bowel sounds, non-tender, soft Skin: warm/dry, pallor Extremities: No pedal edema Neuro/Psych: no motor/sensory deficits, No cognition abnormalities ICD10 Worksheet Patient Problems: Problems Problem Status Onset Dyspnea Acute ESRD on hemodialysis Acute Elevated troponin Acute Headache Acute Pneumonia Acute Pulmonary edema Acute Hypoxia Acute Tachycardia Acute Fever Acute Chest pain Acute Shortness of breath Acute Severe mitral regurgitation Chronic Postoperative pneumothorax Acute S/P mitral valve replacement with bioprosthetic valve Acute ESRD (end stage renal disease) Chronic Anemia Chronic CHF (congestive heart failure) Chronic Hypertensive urgency Chronic
--- NOTE | 2018-02-06 14:54 | ASMTLACE ---
ALICIA Length of stay for Answers: 7-13 days current admission Acuity / Level of Answers: Yes Care: Did the patient have an inpatient admission? Comorbidities - select Answers: Congestive heart failure all that apply Moderate or severe liver or renal disease Other Notes: chronic anemia, h/p mitral valve prolapse s /p replacement # of Emergency department Answers: 5-8 visits in the last 6 months Social determinants Answers: History of substance abuse (ETOH, street drugs, prescription drugs, etc.) Score: 22 Date Signed: 02/06/2018 02:53 PM Electronically Signed By:Tami Baltazar
[2018-02-06] MEDS ORDERED: MANNITOL 25% 12.5 GM/50 ML VIAL IVP ONE (16:10)
[2018-02-06] MEDS ORDERED: CITRATE DEXTROSE SOLN 500 ML BAG MISC ONE (16:10)
[2018-02-06] MEDS ORDERED: AMINOCAPROIC ACID 5 GM/20 ML VIAL IV ONE (16:10)
[2018-02-06] MEDS ORDERED: CHLORHEXIDINE GLUC HIBICLENS 118 ML BTL TP SCH (21:00)
[2018-02-06] MEDS: GABAPENTIN 100 MG CAP PO SCH (21:43)
[2018-02-06] MEDS: MUPIROCIN 2% 22 GM OINT NS SCH (21:43)
[2018-02-06] MEDS: SENNOSIDES/DOCUSATE SODIUM TAB PO SCH (21:43)
[2018-02-06] MEDS: ZOLPIDEM TARTRATE 5 MG TAB PO SCH (21:43)
[2018-02-07] MEDS: HYDROmorphONE/DILAUDID 1 MG/ML INJ IVP PRN ×3 (01:03→11:59)
[2018-02-07] MEDS: LORazepam 1 MG TAB PO PRN ×2 (01:03→05:01)
[2018-02-07] MEDS: OXYCODONE/APAP 5/325 TAB PO PRN (06:27)
[2018-02-07] MEDS: MINOXIDIL 10 MG TAB PO SCH ×2 (06:27→20:22)
[2018-02-07] MEDS ORDERED: CEPACOL LOZENGE PO PRN (06:46)
[2018-02-07] MEDS: [UNRECOGNIZED DRUG - REMARK] MISC SCH ×2 (08:00→20:25)
[2018-02-07] MEDS ORDERED: LORazepam 2 MG/ML INJ ONE (09:07)
[2018-02-07] MEDS ORDERED: LORazepam 2 MG/ML INJ IVP PRN (09:08)
[2018-02-07] MEDS: ASPIRIN EC 81 MG TAB PO SCH (09:15)
[2018-02-07] MEDS: SENNOSIDES/DOCUSATE SODIUM TAB PO SCH (09:15)
[2018-02-07] MEDS: FUROSEMIDE 40 MG TAB PO SCH ×2 (09:15→17:41)
[2018-02-07] MEDS: MUPIROCIN 2% 22 GM OINT NS SCH ×2 (09:16→21:28)
[2018-02-07] MEDS ORDERED: NOREPINEPHRINE BITARTRATE 16 MG in NS 250 ML IV ONE ×2 (10:00→11:00)
[2018-02-07] MEDS ORDERED: INSULIN REGULAR HUMAN 100 UNIT in NS 100 ML IV ONE ×2 (10:00→11:00)
[2018-02-07] MEDS ORDERED: MANNITOL 25% 12.5 GM/50 ML VIAL IVP ONE (10:00)
[2018-02-07] MEDS ORDERED: PHENYLEPHRINE HCL 50 MG in NS 250 ML IV ONE ×2 (10:00→11:00)
[2018-02-07] MEDS ORDERED: SODIUM BICARBONATE 20 MEQ, LIDOCAINE 1% 10 ML in NORMOSOL-R 1,000 ML MISC ONE ×2 (10:00→11:00)
[2018-02-07] MEDS ORDERED: ceFAZolin 2 GM/DEXTROSE 100 ML IV ONE ×2 (10:00→11:00)
[2018-02-07] MEDS ORDERED: EPINEPHrine 8 MG in NS 250 ML IV ONE ×2 (10:00→11:00)
[2018-02-07] MEDS ORDERED: CITRATE DEXTROSE SOLN 500 ML BAG MISC ONE (10:00)
[2018-02-07] MEDS ORDERED: AMINOCAPROIC ACID 5 GM/20 ML VIAL IV ONE (10:00)
[2018-02-07] MEDS ORDERED: PROTAMINE SULFATE 50 MG/5 ML VIAL IVP ONE (10:12)
[2018-02-07] MEDS ORDERED: MILRINONE/DEXTROSE/100 ML BAG IV ONE (10:12)
[2018-02-07] MEDS ORDERED: CALCIUM CHLORIDE 1 GM/10 ML INJ ONE ×2 (10:12→10:15)
[2018-02-07] MEDS ORDERED: DOPamine/DEXTROSE 400 MG/250 ML BAG IV ONE (10:13)
[2018-02-07] MEDS ORDERED: NA BICARBONATE 50 MEQ/50 ML VIAL ONE (10:13)
[2018-02-07] MEDS ORDERED: AMIODARONE HCL 150 MG/3 ML VIAL ONE ×2 (10:13→10:15)
[2018-02-07] MEDS ORDERED: niCARdipine/NACL/200 ML BAG IV ONE ×2 (10:13→19:31)
[2018-02-07] MEDS ORDERED: HEPARIN 10,000 UNIT/10 ML MDV (1,000 UNIT/ML) ONE ×2 (10:13→10:15)
[2018-02-07] MEDS ORDERED: NITROGLYCERIN/D5W 50 MG/250 ML BOTTLE IV ONE (10:14)
[2018-02-07] MEDS ORDERED: ceFAZolin 1 GM VIAL ONE (10:14)
[2018-02-07] MEDS ORDERED: ADENOSINE 6 MG/2 ML VIAL ONE (10:14)
[2018-02-07] MEDS ORDERED: ALBUMIN 5% 250 ML BOTTLE IV ONE ×2 (10:14→13:46)
[2018-02-07] MEDS ORDERED: MAGNESIUM SULFATE 1 GM/2 ML VIAL ONE (10:15)
[2018-02-07] MEDS ORDERED: CITRATE DEXTROSE SOLN 500 ML BAG ONE (10:15)
[2018-02-07] MEDS ORDERED: methylPREDNISolone SOD SUCC 1 GM/8 ML VIAL ONE (10:15)
[2018-02-07] MEDS ORDERED: LIDOCAINE 2% 100 MG/5 ML SYR ONE (10:15)
[2018-02-07] MEDS ORDERED: CHLORHEXIDINE GLUC HIBICLENS 118 ML BTL TP ONE (11:11)
[2018-02-07] MEDS ORDERED: LORazepam 2 MG/ML INJ IV ONE (12:15)
[2018-02-07] MEDS ORDERED: fentaNYL 250 MCG/5 ML INJ ONE ×2 (12:34)
[2018-02-07] MEDS ORDERED: LIDOCAINE 2% 5 ML SDV ONE (12:34)
[2018-02-07] MEDS ORDERED: PROPOFOL 200 MG/20 ML VIAL ONE (12:34)
[2018-02-07] MEDS ORDERED: ROCURONIUM 100 MG/10 ML VIAL ONE (12:34)
--- NOTE | 2018-02-07 13:13 | PDANEPAE ---
ANE History of Present Illness redo mv ANE Past Medical History - Cardiovascular History Hx Hypertension: Yes Hx Arrhythmias: No Hx Chest Pain: No Hx Coronary Artery / Peripheral Vascular Disease: No Hx CHF / Valvular Disease: Yes Hx Palpitations: No Cardiovascular History Comment: htn. mitral valve prolapse. chf - Pulmonary History Hx COPD: No Hx Asthma/Reactive Airway Disease: No Hx Recent Upper Respiratory Infection: No Hx Oxygen in Use at Home: Yes O2 in Use at Home (L/minute): 2 Hx Sleep Apnea: No Sleep Apnea Screening Result - Last Documented: Negative - Neurologic History Hx Cerebrovascular Accident: No Hx Seizures: No Hx Dementia: No Neurologic History Comment: migraines - Endocrine History Hx Diabetes: No - Renal History Hx Renal Disorders: Yes Renal History Comment: esrd. dialysis m-w-f @ [facility] - Liver History Hx Hepatic Disorders: No - Neurological & Psychiatric Hx Hx Neurological and Psychiatric Disorders: No - Cancer History Hx Cancer: No - Congenital Disorder History Hx Congenital Disorders: No - GI History Hx Gastrointestinal Disorders: No - Other Health History Other Health History: missing teeth from previous surgery. fistula left wrist area - Chronic Pain History Chronic Pain: Yes (back pain, head) - Surgical History Prior Surgeries: 07/10/17 multiple dental extractions with Catrina. gallbladder removal. fistula placement ANE Review of Systems Review of Systems: - Exercise capacity Exercise capacity: <4 METS ANE Patient History - Allergies Allergies/Adverse Reactions: Beta-Blockers (Beta-Adrenergic Bloc Allergy (Verified 02/06/18 11:27) - Home Medications Home Medications: Aspirin EC [Aspirin EC 81 mg (*)] 81 mg PO DAILY 01/12/18 [Last Taken 01/27/18] Carvedilol 25 mg PO BIDMEAL 01/12/18 [Last Taken 01/27/18 18:00] Diazepam [Valium 5 MG (*)] 5 mg PO TID PRN 01/12/18 [Last Taken 01/27/18] Gabapentin [Neurontin 100 MG (*)] 100 mg PO HS 01/12/18 [Last Taken 01/26/18] Minoxidil [Minoxidil 10 mg (*)] 20 mg PO BIDMEAL 01/12/18 [Last Taken 01/27/18 18:00] amLODIPine BESYLATE [Amlodipine Besylate] 10 mg PO DAILY 01/12/18 [Last Taken ] oxyCODONE HCL/ACETAMINOPHEN [Percocet 10-325 mg Tablet] 2 each PO MWF PRN [Last Taken 01/27/18] Furosemide [Lasix 40 MG (*)] 40 mg PO DAILY 01/24/18 [Last Taken 01/27/18] - NPO status NPO Since - Liquids (Date): 02/07/18 NPO Since - Liquids (Time): 00:01 NPO Since - Solids (Date): 02/07/18 NPO Since - Solids (Time): 00:01 - Smoking Hx Smoking Status: Current every day smoker - Family Anes Hx Family Hx Anesthesia Complications: None ANE Labs/Vital Signs - Labs Result Diagrams: 02/07/18 06:20 02/07/18 06:20 - Vital Signs Blood Pressure: 141/59 Heart Rate: 112 Respiratory Rate: 80 O2 Sat (%): 97 Height: 175.26 cm Weight: 71.4 kg ANE Physical Exam - Airway Mallampati Score: Class 2 Mouth exam: normal dental/mouth exam - Pulmonary Pulmonary: no respiratory distress - Cardiovascular Cardiovascular: tachycardia - ASA Status ASA Status: III ANE Anesthesia Plan Anesthesia Plan: general endotracheal anesthesia Lines/Monitors: arterial line, central line, SANJAY
--- NOTE | 2018-02-07 13:21 | HOSPPROG ---
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 -s/p Balloon mitral valve valvuloplasty with no significant improvement -will have MVR today #Hyperkalemia: -HD #Acute bleeding from femoral site: resolved #Anemia of renal disease: -transfuse PRN #ESRD: cont HD per renal. -HD intraoperative today #HTN: well-controlled on home meds -home meds #Symptomatic uremia: cont HD per renal #SIRs/sepsis: resolved. No signs infection. Reps PCR, cultures negative. no vegetation on echo #Indeterminate trop: due to volume overload #Migraines: associated with HD #Pain: will change from MS to Dilaudid #Anxiety: situational with prolonged hospitalization. -Has trialed several SSRIs without success. Cont PRN Ativan. Encouraged family to bring in games, activities to help calm him #Diet: renal #Disp: cont inpatient admission Plan: OR today Intraoperative HD today with volume removal Transfuse PRN Pain mgmt Subjective: some sob. CXR reviewed, pulm edema is present. He will have surgery today. no cp. Objective: Vital Signs Temp Pulse Resp BP Pulse Ox 36.0 C 112 H 80 H 141/59 H 97 02/07/18 12:51 02/07/18 13:12 02/07/18 13:12 02/07/18 13:12 02/07/18 13:12 Laboratory Results 02/07/18 06:20 02/07/18 06:20 02/06/18 02/07/18 02/08/18 05:59 05:59 05:59 Intake Total 846 2250 Output Total 4910 2900 Balance -4064 -650 PT 14.3 SEC (12.0-15.0) 02/04/18 17:51 INR 1.09 (0.83-1.16) 02/04/18 17:51 - Physical Exam Constitutional: no apparent distress Eyes: PERRL, EOMI Ears, Nose, Mouth, Throat: moist mucous membranes, hearing normal Cardiovascular: regular rate and rhythym, No edema Respiratory: reduced air movement Gastrointestinal: normoactive bowel sounds, soft, non-tender abdomen Skin: warm Neurologic: AAOx3 Psychiatric: interacting appropriately, not anxious, not encephalopathic Lymph, Heme, Immunologic: No petechiae ICD10 Worksheet Patient Problems: Problems Problem Status Onset Chest pain Acute Fever Acute Shortness of breath Acute Tachycardia Acute ESRD (end stage renal disease) Chronic Dyspnea Acute ESRD on hemodialysis Acute Elevated troponin Acute Headache Acute Hypoxia Acute Pneumonia Acute Postoperative pneumothorax Acute Pulmonary edema Acute S/P mitral valve replacement with bioprosthetic valve Acute Anemia Chronic CHF (congestive heart failure) Chronic Hypertensive urgency Chronic Severe mitral regurgitation Chronic
[2018-02-07] MEDS ORDERED: PHENYLEPHRINE 10 MG/ML SDV ONE (14:26)
[2018-02-07] MEDS ORDERED: THROMBIN(HUM PLAS)/FIBRINOG/CA 5 ML VIAL TP ONE ×2 (14:31→17:50)
[2018-02-07] MEDS ORDERED: ROCURONIUM 50 MG/5 ML VIAL ONE (17:02)
--- NOTE | 2018-02-07 18:11 | POSTOPPROG ---
Post Op Note Date of Operation: 02/07/18 Surgeon: Smooth Farr Endoscopy Support Specialist: Navjot Anesthesiologist: Luis Manuel Anesthesia: GET(General Endotracheal) Pre-op Diagnosis: Prosthetic MS Procedure: redo MVR #27 [address]quez Inf/Abcess present in the surg proc area at time of surgery?: No EBL: 500-1000
[2018-02-07] MEDS ORDERED: PROPOFOL/EMULSION 500 MG/50 ML BOTTLE IV ONE (18:46)
[2018-02-07] MEDS ORDERED: niCARdipine/NACL 200 ML IV SCH ×2 (19:00→20:30)
[2018-02-07] MEDS ORDERED: ALBUMIN 5% 250 ML IV PRN (19:11)
[2018-02-07] MEDS ORDERED: METOCLOPRAMIDE 10 MG/2 ML VIAL IVP PRN (19:11)
[2018-02-07] MEDS ORDERED: PANTOPRAZOLE SODIUM 40 MG VIAL IVP ONE (19:11)
[2018-02-07] MEDS ORDERED: MEPERIDINE 25 MG/0.5 ML AMP IVP PRN (19:11)
[2018-02-07] MEDS ORDERED: POLYETHYLENE GLYCOL 3350 17 GM PKT PO PRN (19:11)
[2018-02-07] MEDS ORDERED: BISACODYL 10 MG SUPP PR PRN (19:11)
[2018-02-07] MEDS ORDERED: LACTULOSE 20 GM/30 ML UDCUP PO PRN (19:11)
[2018-02-07] MEDS ORDERED: D50W 25 GM/50 ML SYR IVP PRN (19:11)
[2018-02-07] MEDS ORDERED: ACETAMINOPHEN 650 MG SUPP PR PRN (19:11)
[2018-02-07] MEDS ORDERED: SODIUM CL NASAL 45 ML BTL EACHNARE PRN (19:11)
[2018-02-07] MEDS ORDERED: NS 1,000 ML IV SCH (19:15)
[2018-02-07] MEDS ORDERED: NALOXONE HCL 0.4 MG/ML INJ IVP PRN (19:26)
--- NOTE | 2018-02-07 19:26 | POSTANESTH ---
Post Anesthetic Evaluation Cardiovascular Status: Other, See Comment (stable on) Respiratory Status: Other, See Comment (stable on vent) Level of Consciousness/Mental Status: Other, See Comment Pain Control: Adequate, Prn Tx Ordered Nausea/Vomiting Control: Adequate, Prn Tx Ordered Complications Possibly Related to Anesthesia: None Noted
[2018-02-07] MEDS ORDERED: INSULIN REGULAR HUMAN 100 UNIT in NS 100 ML IV SCH (19:30)
[2018-02-07] MEDS ORDERED: fentaNYL 100 MCG/2 ML INJ ONE (19:42)
[2018-02-07] MEDS ORDERED: NITROPRUSSIDE SODIUM 50 MG in D5W 250 ML IV SCH (20:00)
[2018-02-07] MEDS ORDERED: fentaNYL 100 MCG/2 ML INJ IVP PRN (20:13)
[2018-02-07] MEDS: DEXMEDETOMIDINE IN 0.9 % NACL 100 ML IV SCH ×2 (20:30→23:58)
[2018-02-07] MEDS: fentaNYL 100 MCG/2 ML INJ IVP PRN (20:32)
[2018-02-07] MEDS ORDERED: PROPOFOL/EMULSION 100 ML IV SCH (21:38)
[2018-02-07] MEDS ORDERED: PANTOPRAZOLE SODIUM 40 MG VIAL ONE (22:19)
[2018-02-07 22:34] LABS: PLATELET COUNT 91 10^3/uL (150-400)
--- NOTE | 2018-02-07 22:39 | GOP ---
[f rep st] OPERATIVE REPORT DATE OF OPERATION: 02/07/2018 SURGEON: Smooth Farr DO PERMIT REVIEW ASSISTANT: Navjot. ANESTHESIOLOGIST: Dr. Issa. PREOPERATIVE DIAGNOSIS: 1. 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 2. Chronic renal insufficiency on dialysis. 3. Pulmonary hypertension. POSTOPERATIVE DIAGNOSIS: 1. 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 2. Chronic renal insufficiency on dialysis. 3. Pulmonary hypertension. PROCEDURE PERFORMED: Reoperation mitral valve replacement with a #27 [address] Marquez mechanical prosthesis.Intraoperative hemodialysis FINDINGS: Patient presented with worsening symptoms of mitral stenosis. Attempted balloon valvuloplasty was unsuccessful. He had a mild respiratory arrest 2 days prior. He was dialyzed to remove the excess fluid and to stabilize for surgery. DESCRIPTION OF PROCEDURE: He was brought to the operating room on an urgent basis. He was intubated. Monitoring lines were placed. He was prepped and draped in sterile classical manner. Sternotomy was performed. We then spent a great deal of time marsupializing the right side of his heart due to adhesions from surgery within the last 6 months from the right thoracotomy. We were able to expose the right side of the heart. The right heart was massively enlarged. He was heparinized, cannulated in ascending aorta and bicaval cannulas. Cardiopulmonary bypass was begun. Cardioplegic arrest was obtained with antegrade cardioplegia, retrograde cardioplegia, topical hypothermia, and systemic cooling. We then, because of the adhesions, exposed the mitral valve through the interatrial septum after caval tapes were placed. The valve was explanted, including all pledgets and Cor-Knots. The anulus was debrided. LV chamber was irrigated. CO2 was infused. We then placed pledgeted mattress sutures and seated a [address] Marquez prosthesis using Cor-Knots. The interatrial septum was closed as was the right atrium. Cross-clamp was removed with suction on the ascending aortic vent and intermittent aspiration of the LV apex. When no further air was identified, the patient was weaned from bypass. Echo revealed good ventricular function. Mild tricuspid insufficiency. Normal mechanical valve functioning with the 2 regurgitant jets for washing the prosthesis. After controlling coagulopathy, the sternum was closed. The patient was returned to ICU in stable condition. /[id number]/MODL MTDD
[2018-02-08 05:50] LABS: PLATELET COUNT 72 10^3/uL (150-400)
[2018-02-08] MEDS: DEXMEDETOMIDINE IN 0.9 % NACL 100 ML IV SCH (05:55)
[2018-02-08] MEDS ORDERED: HEPARIN 5,000 UNIT/0.5 ML INJ SC SCH (06:00)
[2018-02-08 08:12] LABS: INR 1.3 (0.83-1.16); PROTIME(PATIENT) 16.4 SEC (12.0-15.0)
[2018-02-08] MEDS ORDERED: LORazepam 2 MG/ML INJ ONE (08:21)
[2018-02-08] MEDS: [UNRECOGNIZED DRUG - REMARK] MISC SCH (08:34)
[2018-02-08] MEDS ORDERED: LORazepam 2 MG/ML INJ IV ONE (08:45)
[2018-02-08] MEDS ORDERED: ceFAZolin 2 GM/DEXTROSE 100 ML IV SCH (09:00)
[2018-02-08] MEDS ORDERED: ASPIRIN 81 MG CHEWABLE TAB TUBE PRN (09:00)
[2018-02-08] MEDS: MUPIROCIN 2% 22 GM OINT NS SCH ×2 (09:24→19:59)
[2018-02-08] MEDS: HYDROmorphONE/DILAUDID 1 MG/ML INJ IVP PRN ×3 (11:43→21:12)
[2018-02-08] MEDS: ASPIRIN EC 81 MG TAB PO SCH (11:54)
[2018-02-08] MEDS ORDERED: ENOXAPARIN 80 MG/0.8 ML SYR SC SCH (12:00)
--- NOTE | 2018-02-08 13:06 | SOAPPROG ---
JASON Progress Note Assessment/Plan: POD1 Redo sternotomy redo mitral valve replacement with a #27 [address] [employer]quez mechanical prosthesis Prosthetic mitral stenosis - Hx of bMVR with early degeneration and recurrent MS - s/p Redo MVR with mechanical valve. - Attempted balloon valvuloplasty this admission which was unsuccessful. - Will start Hep gtt, Coumadin 5mg and ASA for mechanical prosthesis. Class 4 CHF with EF 70-75% - Will monitor fluid balance closely. - Will start Metoprolol today. - Will start Lasix when appropriate. Rhythm - Remains in SR 60-80's. - Will start BB today. - Wrap and cap PW. Respiratory insufficiency - CXR shows pulm edema. - Will wean to extubate today. Chronic anemia/acute blood loss anemia - Chronically with Hct low 20's. Currently stable with H&H 7.6/21.9. - Received PRBC in OR. - Receives Epo with HD. - Will follow Secondary thrombocytopenia d/t CPB - Stable with plt 88k (72k), s/p transfusion of platelets in OR. - Will follow Acute postop coagulopathy - INR 1.3 s/p transfusion of FFP in OR. - Will follow ESRD secondary to solitary kidney, on HD at [facility] - BUN 34/Cr 4.8, K 4.9. Patient anuric. - s/p HD in OR yesterday (-2.9LL) and will receive HD again today. - Renal following Deconditioning - Start PT/OT after extubation. - Encourage ambulation/IS. Subjective: Patient denies pain. He is anxious and wants to be extubated. Reports being very thirsty. Objective: Vital Signs Temp Pulse Resp BP Pulse Ox 37.1 C 83 20 102/56 L 94 02/08/18 12:00 02/08/18 12:00 02/08/18 12:00 02/08/18 12:00 02/08/18 12:00 Laboratory Results 02/08/18 05:10 02/08/18 05:10 02/07/18 02/08/18 02/09/18 05:59 05:59 05:59 Intake Total 2250 592 265 Output Total 2900 290 70 Balance -650 302 195 PT 16.4 SEC (12.0-15.0) H 02/08/18 07:59 INR 1.30 (0.83-1.16) H 02/08/18 07:59 Physical Exam - Physical Exam General Appearance: WD/WN, alert, no apparent distress Neck: supple Respiratory: crackles (bibasilarly ), other (no wheezing, rhonchi.) Cardiac/Chest: regular rate, rhythm (no murmurs, rubs, gallops. Sternum stable. Sternotomy c/d/i. ) Abdomen: normal bowel sounds, non-tender, soft Skin: normal color, warm/dry Extremities: other (wam, minimal lower extremity edema) Neuro/Psych: alert (oriented, communicating appropriately by writing on a clipboard) ICD10 Worksheet Patient Problems: Problems Problem Status Onset Acute blood loss anemia Acute Chest pain Acute Coagulopathy Acute Fever Acute Prosthetic mitral valve stenosis Acute S/P mitral valve replacement with metallic valve Acute ~02/07/18 Shortness of breath Acute Tachycardia Acute ESRD (end stage renal disease) Chronic Dyspnea Acute ESRD on hemodialysis Acute Elevated troponin Acute Headache Acute Hypoxia Acute Pneumonia Acute Postoperative pneumothorax Acute Pulmonary edema Acute Anemia Chronic CHF (congestive heart failure) Chronic Hypertensive urgency Chronic Severe mitral regurgitation Chronic
[2018-02-08 13:12] LABS: PLATELET COUNT 88 10^3/uL (150-400)
[2018-02-08 13:24] LABS: INR 1.23 (0.83-1.16); PROTIME(PATIENT) 15.7 SEC (12.0-15.0)
[2018-02-08] MEDS: OXYCODONE/APAP 5/325 TAB PO PRN (13:37)
[2018-02-08] MEDS: HEPARIN/DEXTROSE 500 ML IV SCH (13:41)
--- NOTE | 2018-02-08 13:43 | ASMTCMCOM ---
CM Note CM Note Notes: Pt extubated this morning, declined PT. Therapy recs pending. Pt to dialysis today. CM will continue to follow. Date Signed: 02/08/2018 01:42 PM Electronically Signed By:PERNELL Zamudio
--- NOTE | 2018-02-08 14:22 | HOSPPROG ---
Hospitalist Progress Note Assessment/Plan: #Dyspnea/Acute hypoxic resp failure/Pulmonary Edema -CXR reviewed today. 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 -s/p Balloon mitral valve valvuloplasty unsuccessful -POD Day #1 redo MVR with mechanical valve -Post op care and Anticoagulation per surgery #Hyperkalemia: -HD #Acute bleeding from femoral site: resolved #Anemia of renal disease: -Has required multiple transfusion -Hgb is stable today, if further drop may need transfusion #Hypotension -required albumin overnight. Now stable. If persists, given anemia, would consider additional PRBC unit #ESRD: cont HD per renal. -HD per renal #HTN: well-controlled on home meds -home meds when appropriate #Diet: per surgery #Disp: cont inpatient admission. Cont ICU Subjective: intubated. Tolerating well. Objective: Vital Signs Temp Pulse Resp BP Pulse Ox 37.1 C 84 20 124/66 H 98 02/08/18 12:00 02/08/18 14:00 02/08/18 14:00 02/08/18 14:00 02/08/18 14:00 Laboratory Results 02/08/18 13:00 02/08/18 13:00 02/07/18 02/08/18 02/09/18 05:59 05:59 05:59 Intake Total 2250 592 265 Output Total 2900 290 100 Balance -650 302 165 PT 15.7 SEC (12.0-15.0) H 02/08/18 13:00 INR 1.23 (0.83-1.16) H 02/08/18 13:00 - Physical Exam Constitutional: no apparent distress Eyes: PERRL Ears, Nose, Mouth, Throat: moist mucous membranes, hearing normal Cardiovascular: regular rate and rhythym, No edema Respiratory: reduced air movement Gastrointestinal: normoactive bowel sounds, soft, non-tender abdomen Skin: warm Neurologic: AAOx3 Psychiatric: interacting appropriately, not anxious, not encephalopathic Lymph, Heme, Immunologic: No petechiae ICD10 Worksheet Patient Problems: Problems Problem Status Onset Acute blood loss anemia Acute Chest pain Acute Coagulopathy Acute Fever Acute Prosthetic mitral valve stenosis Acute S/P mitral valve replacement with metallic valve Acute ~02/07/18 Shortness of breath Acute Tachycardia Acute ESRD (end stage renal disease) Chronic Dyspnea Acute ESRD on hemodialysis Acute Elevated troponin Acute Headache Acute Hypoxia Acute Pneumonia Acute Postoperative pneumothorax Acute Pulmonary edema Acute Anemia Chronic CHF (congestive heart failure) Chronic Hypertensive urgency Chronic Severe mitral regurgitation Chronic
--- NOTE | 2018-02-08 15:08 | SOAPPROG ---
JASON Progress Note Assessment/Plan: Assessment: ESRD: on HD MWF as outpatient --Had HD on 02/06, in OR on 02/07, and planning again on 02/08 *Continue to assess daily for HD needs Anemia: --continue to trend post-op, management per surgical team Hyperkalemia: K ok with daily dialysis. - Will do HD again today. - Will plan on HD again tomorrow. - Pt is on Lasix. - Will place on low K diet. - Will continue to monitor. Hypervolemia: Goal UF 4L on 02/08 as BP tolerates HTN: BP on low side --Agree with holding Minoxidil *Hold Amlodipine Mitral stenosis in prosthetic valve: s/p redo mitral valve replacement on 02/0702/08/18 15:09 Subjective: Extubated this morning pre-dialysis. Feeling well except for post-op sternal pain. Denies shortness of breath. Objective: Vital Signs Temp Pulse Resp BP Pulse Ox 37.1 C 84 20 124/66 H 98 02/08/18 12:00 02/08/18 14:00 02/08/18 14:00 02/08/18 14:00 02/08/18 14:00 Laboratory Results 02/08/18 13:00 02/08/18 13:00 02/07/18 02/08/18 02/09/18 05:59 05:59 05:59 Intake Total 2250 592 265 Output Total 2900 290 100 Balance -650 302 165 PT 15.7 SEC (12.0-15.0) H 02/08/18 13:00 INR 1.23 (0.83-1.16) H 02/08/18 13:00 Exam: General: AAO x 3, well-appearing, NAD Pulm: Rales at L base, chest tube CV: NRRR, no g/m/r, sternal incision c/d/i Extrem: Trace edema Skin: sternal wound c/d/i Psych: appropriate mood and affect ICD10 Worksheet Patient Problems: Problems Problem Status Onset Acute blood loss anemia Acute Chest pain Acute Coagulopathy Acute Fever Acute Prosthetic mitral valve stenosis Acute S/P mitral valve replacement with metallic valve Acute ~02/07/18 Shortness of breath Acute Tachycardia Acute ESRD (end stage renal disease) Chronic Dyspnea Acute ESRD on hemodialysis Acute Elevated troponin Acute Headache Acute Hypoxia Acute Pneumonia Acute Postoperative pneumothorax Acute Pulmonary edema Acute Anemia Chronic CHF (congestive heart failure) Chronic Hypertensive urgency Chronic Severe mitral regurgitation Chronic
--- NOTE | 2018-02-08 15:39 | PDINTPN ---
Rug Layer Progress Note Assessment/Plan: Assessment: 27-year-old he admitted 01/29. History of chronic renal failure on hemodialysis , awaiting transplant. Status post bioprosthetic valve approximately a year ago. Failed. Had valvuloplasty which did not work associated with severe pulmonary edema. OHS with mechanical mitral valve 02/07. Acute pulmonary edema: Severe pulmonary edema post valvuloplasty resolved. Still has evidence of pulmonary edema on chest x-ray after the new mechanical valve but in no distress and able to be extubated without problems. For hemodialysis and fluid removal again today. Chronic renal failure: On hemodialysis, with fluid removal. Mitral valve disease: Redo mitral valve, mechanical, 02/07. Stable postoperatively. Anticoagulation with full-dose IV heparin starting today. Systemic hypertension. Long-standing. On nitroglycerin drip as well as oral medications. Anemia: Hematocrit 23.4 today. Plan: Continue care in the intensive care unit. Continue hemodialysis with fluid removal. Start anticoagulation with heparin today. Continue oxygen. Follow laboratory, chest x-ray. 25 min of critical care time spent directly with the patient. Discussed with the patient and his family, nursing, renal, cardiovascular surgery, and the ICU multi disciplinary team. Subjective: Status post MVR late yesterday. On ventilator overnight. Extubated this morning without problems. Denies significant shortness of breath. Awaiting dialysis Objective: Vital Signs Temp Pulse Resp BP Pulse Ox 37.1 C 84 20 124/66 H 98 02/08/18 12:00 02/08/18 14:00 02/08/18 14:00 02/08/18 14:00 02/08/18 14:00 Laboratory Results 02/08/18 13:00 02/08/18 13:00 02/07/18 02/08/18 02/09/18 05:59 05:59 05:59 Intake Total 2250 592 265 Output Total 2900 290 100 Balance -650 302 165 PT 15.7 SEC (12.0-15.0) H 02/08/18 13:00 INR 1.23 (0.83-1.16) H 02/08/18 13:00 Laboratory Tests 02/08/18 02/08/18 02/08/18 05:10 05:10 09:23 pCO2 43 H pO2 70 ABG pH 7.37 ABG O2 Saturation 94 O2 Concentration % 40 Actual Respiration Rate 16 CPAP YES POC Sodium 138 POC Potassium 5.0 POC Chloride 100 POC BUN 34 H POC Creatinine 4.8 H POC Glucose 102 H Calcium 9.2 Phosphorus 6.7 H Albumin 2.9 L CXR: Pulmonary edema present Physical Exam - Physical Exam General Appearance: alert, no apparent distress EENT: other (Nasal cannula at 5 L) Neck: normal inspection Respiratory: decreased breath sounds (At bases), rales (Present at bases) Cardiac/Chest: regular rate, rhythm, systolic murmur Abdomen: normal bowel sounds, non-tender, soft Skin: normal color, warm/dry Extremities: No pedal edema Neuro/Psych: no motor/sensory deficits, No cognition abnormalities ICD10 Worksheet Patient Problems: Problems Problem Status Onset Acute blood loss anemia Acute Coagulopathy Acute S/P mitral valve replacement with metallic valve Acute ~02/07/18 Prosthetic mitral valve stenosis Acute Dyspnea Acute ESRD on hemodialysis Acute Elevated troponin Acute Headache Acute Pneumonia Acute Pulmonary edema Acute Hypoxia Acute Tachycardia Acute Fever Acute Chest pain Acute Shortness of breath Acute Severe mitral regurgitation Chronic Postoperative pneumothorax Acute ESRD (end stage renal disease) Chronic Anemia Chronic CHF (congestive heart failure) Chronic Hypertensive urgency Chronic
[2018-02-08] MEDS: HYDROCODONE/APAP 5/325 TAB PO PRN ×2 (15:58→19:58)
[2018-02-08] MEDS ORDERED: WARFARIN SODIUM 5 MG TAB PO ONE (16:00)
[2018-02-08] MEDS: METOPROLOL TARTRATE 50 MG TAB PO SCH (19:57)
[2018-02-08] MEDS: PANTOPRAZOLE SODIUM 40 MG TAB PO SCH (19:58)
[2018-02-08] MEDS: HEPARIN 10,000 UNIT/10 ML MDV (1,000 UNIT/ML) IVP PRN (20:33)
[2018-02-08] MEDS: fentaNYL 100 MCG/2 ML INJ IVP PRN (23:22)
[2018-02-09] MEDS: HYDROmorphONE/DILAUDID 1 MG/ML INJ IVP PRN (00:24)
[2018-02-09] MEDS: OXYCODONE/APAP 5/325 TAB PO PRN ×3 (01:37→21:39)
[2018-02-09 03:00] LABS: INR 1.28 (0.83-1.16); PROTIME(PATIENT) 16.2 SEC (12.0-15.0)
[2018-02-09] MEDS: HEPARIN 10,000 UNIT/10 ML MDV (1,000 UNIT/ML) IVP PRN ×3 (03:15→17:07)
[2018-02-09] MEDS: HYDROCODONE/APAP 5/325 TAB PO PRN (06:44)
--- NOTE | 2018-02-09 07:27 | SOAPPROG ---
JASON Progress Note Assessment/Plan: POD2 Redo sternotomy redo mitral valve replacement with a #27 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 - On Hep gtt, Coumadin 5mg and ASA for mechanical prosthesis. INR 1.28. - Echo ordered for Saturday. Class 4 CHF with EF 70-75% - Pulmonary edema improving on CXR today. - Will monitor fluid balance closely. - On Metoprolol and Lasix. Rhythm - Remains in SR 80's. - On Metoprolol. - Will keep pacing wires in place today. Respiratory insufficiency - CXR shows continued pulm edema, however improving. - Tolerating extubation yesterday, currently on 4L NC. Chronic anemia/acute blood loss anemia - Chronically with Hct low 20's. Currently stable with H&H 9.1/26.5. - Received PRBC in OR. - Receives Epo with HD Qweek. - Will follow. Secondary thrombocytopenia d/t CPB - Stable with plt 128k (88k), s/p transfusion of platelets in OR. - Will follow Acute postop coagulopathy - S/p transfusion of FFP in OR. - Now on Coumadin for mechanical mitral prosthesis. 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 Patient anuric. - s/p HD in OR (-2.9L) and received HD again yesterday (-3.0L). No indication for HD today. - Renal following Anxiety - Will resume home [facility]. Deconditioning - PT/OT - Encourage ambulation/IS. Subjective: Patient reports good pain control with new regimen of Percocet/Oxy IR. Objective: Vital Signs Temp Pulse Resp BP Pulse Ox 37.2 C 85 18 133/72 H 95 02/09/18 04:00 02/09/18 06:00 02/09/18 06:00 02/09/18 06:00 02/09/18 06:00 Laboratory Results 02/09/18 02:35 02/09/18 02:35 02/08/18 02/09/18 02/10/18 05:59 05:59 05:59 Intake Total 592 2352 Output Total 290 3200 Balance 302 -848 PT 16.2 SEC (12.0-15.0) H 02/09/18 02:35 INR 1.28 (0.83-1.16) H 02/09/18 02:35 Physical Exam - Physical Exam General Appearance: WD/WN, alert, no apparent distress Neck: supple Respiratory: lungs clear, normal breath sounds, decreased breath sounds (bases) Cardiac/Chest: regular rate, rhythm, other (No murmurs, rubs, gallops. Bee mechanical click present. Sternum stable, sternotomy c/d/i. ) Abdomen: normal bowel sounds, non-tender, soft Skin: normal color, warm/dry Extremities: other (Warm, no edema. ) Neuro/Psych: alert, normal mood/affect, oriented x 3 ICD10 Worksheet Patient Problems: Problems Problem Status Onset Acute blood loss anemia Acute Chest pain Acute Coagulopathy Acute Fever Acute Prosthetic mitral valve stenosis Acute S/P mitral valve replacement with metallic valve Acute ~02/07/18 Shortness of breath Acute Tachycardia Acute ESRD (end stage renal disease) Chronic Dyspnea Acute ESRD on hemodialysis Acute Elevated troponin Acute Headache Acute Hypoxia Acute Pneumonia Acute Postoperative pneumothorax Acute Pulmonary edema Acute Anemia Chronic CHF (congestive heart failure) Chronic Hypertensive urgency Chronic Severe mitral regurgitation Chronic
[2018-02-09] MEDS: ASPIRIN EC 81 MG TAB PO SCH (08:14)
[2018-02-09] MEDS: METOPROLOL TARTRATE 50 MG TAB PO SCH ×2 (08:14→20:07)
[2018-02-09] MEDS: MUPIROCIN 2% 22 GM OINT NS SCH (08:43)
[2018-02-09] MEDS: oxyCODONE IR 5 MG TAB PO PRN ×5 (08:51→22:08)
[2018-02-09] MEDS: HEPARIN/DEXTROSE 500 ML IV SCH (09:04)
--- NOTE | 2018-02-09 09:41 | HOSPPROG ---
Hospitalist Progress Note Assessment/Plan: #Acute hypoxemic resp failure/Pulmonary Edema -CXR this am pers reviewed/interpreted - still with pulmonary edema, some improvement -Lasix per CV surgery team #Acute Hypoxic resp failure - extubated 02/08, currently 4 LPM #Prosthetic mitral stenosis: initial repair 07/28, s/p Balloon mitral valve valvuloplasty unsuccessful, POD Day #2 redo MVR with mechanical valve -Post op care and Anticoagulation per surgery -chest tube management per surg #Hyperkalemia: -HD #Acute bleeding from femoral site: resolved #ESRD: cont HD per renal. #Anemia of renal disease: Has required multiple transfusions, Hgb stable today at 9.2 -Epo per renal #Hypotension - improved, responded to albumin -holding minoxidil and amlodipine #HTN: resume BB #Diet: per surgery #Disp: cont inpatient admission. Cont ICU Subjective: Pt doing fine today, breathing is ok. Denies CP. Pain is controlled. No N/V. Tolerating po. No fevers. Objective: Vital Signs Temp Pulse Resp BP Pulse Ox 37.1 C 83 26 H 138/74 H 98 02/09/18 07:51 02/09/18 08:14 02/09/18 07:51 02/09/18 08:14 02/09/18 07:51 Laboratory Results 02/09/18 02:35 02/09/18 02:35 02/08/18 02/09/18 02/10/18 05:59 05:59 05:59 Intake Total 592 2352 Output Total 290 3200 Balance 302 -848 PT 16.2 SEC (12.0-15.0) H 02/09/18 02:35 INR 1.28 (0.83-1.16) H 02/09/18 02:35 - Physical Exam Constitutional: no apparent distress Eyes: PERRL Ears, Nose, Mouth, Throat: moist mucous membranes Cardiovascular: regular rate and rhythym Respiratory: no respiratory distress, inspiratory crackles Gastrointestinal: normoactive bowel sounds, soft, non-tender abdomen Skin: warm Musculoskeletal: full muscle strength Neurologic: AAOx3 Psychiatric: interacting appropriately ICD10 Worksheet Patient Problems: Problems Problem Status Onset Acute blood loss anemia Acute Chest pain Acute Coagulopathy Acute Fever Acute Prosthetic mitral valve stenosis Acute S/P mitral valve replacement with metallic valve Acute ~02/07/18 Shortness of breath Acute Tachycardia Acute ESRD (end stage renal disease) Chronic Dyspnea Acute ESRD on hemodialysis Acute Elevated troponin Acute Headache Acute Hypoxia Acute Pneumonia Acute Postoperative pneumothorax Acute Pulmonary edema Acute Anemia Chronic CHF (congestive heart failure) Chronic Hypertensive urgency Chronic Severe mitral regurgitation Chronic
--- NOTE | 2018-02-09 10:29 | SOAPPROG ---
SOAP Progress Note Assessment/Plan: Assessment: ESRD: on HD MWF as outpatient --Had HD on 02/06, in OR on 02/07, and again on 02/08 Next HD planned for 02/10 per regular MWF schedule Anemia: --continue to trend post-op, management per surgical team Hyperkalemia: at goal -continue low K diet - Will place on low K diet. - Will continue to monitor. Hypervolemia: 3L UF on 02/08 *Goal 3-4L UF on 02/10 HTN: BP on low side --Agree with holding Minoxidil and Amlodipine Mitral stenosis in prosthetic valve: s/p redo mitral valve replacement on 02/0702/09/18 10:27 Subjective: Continues to have pain but otherwise feels ok. HD went ok yesterday. Had 3L UF. He is anxious for discharge. Objective: Vital Signs Temp Pulse Resp BP Pulse Ox 37.1 C 83 26 H 138/74 H 98 02/09/18 07:51 02/09/18 08:14 02/09/18 07:51 02/09/18 08:14 02/09/18 07:51 Laboratory Results 02/09/18 02:35 02/09/18 02:35 02/08/18 02/09/18 02/10/18 05:59 05:59 05:59 Intake Total 592 2352 Output Total 290 3200 Balance 302 -848 PT 16.2 SEC (12.0-15.0) H 02/09/18 02:35 INR 1.28 (0.83-1.16) H 02/09/18 02:35 General: AAO x 3, well-appearing, NAD Pulm: Rales at L base, chest tube CV: NRRR, no g/m/r, sternal incision c/d/i Extrem: 0-Trace edema Skin: sternal wound c/d/i Psych: appropriate mood and affect ICD10 Worksheet Patient Problems: Problems Problem Status Onset Acute blood loss anemia Acute Chest pain Acute Coagulopathy Acute Fever Acute Prosthetic mitral valve stenosis Acute S/P mitral valve replacement with metallic valve Acute ~02/07/18 Shortness of breath Acute Tachycardia Acute ESRD (end stage renal disease) Chronic Dyspnea Acute ESRD on hemodialysis Acute Elevated troponin Acute Headache Acute Hypoxia Acute Pneumonia Acute Postoperative pneumothorax Acute Pulmonary edema Acute Anemia Chronic CHF (congestive heart failure) Chronic Hypertensive urgency Chronic Severe mitral regurgitation Chronic
[2018-02-09] MEDS ORDERED: ACETAMINOPHEN 325 MG TAB PO PRN (10:34)
[2018-02-09] MEDS ORDERED: MAGNESIUM HYDROXIDE 30 ML UDCUP PO PRN (10:34)
[2018-02-09] MEDS ORDERED: WARFARIN SODIUM 5 MG TAB PO ONE (16:00)
[2018-02-09] MEDS: PANTOPRAZOLE SODIUM 40 MG TAB PO SCH (20:07)
[2018-02-09] MEDS: LORazepam 1 MG TAB PO PRN (20:07)
[2018-02-09] MEDS: GABAPENTIN 100 MG CAP PO SCH (20:07)
[2018-02-09] MEDS ORDERED: SILVER NITRATE APPLICATOR 1 APPL TP ONE (21:45)
[2018-02-10] MEDS: LORazepam 1 MG TAB PO PRN ×5 (00:12→20:15)
[2018-02-10] MEDS: oxyCODONE IR 5 MG TAB PO PRN ×5 (00:12→19:51)
[2018-02-10] MEDS: OXYCODONE/APAP 5/325 TAB PO PRN ×4 (05:23→23:04)
[2018-02-10 05:51] LABS: INR 3.31 (0.83-1.16); PROTIME(PATIENT) 33.4 SEC (12.0-15.0)
--- NOTE | 2018-02-10 06:54 | SOAPPROG ---
SOAP Progress Note Assessment/Plan: Assessment: POD#3 Redo MVR #27 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 Attempted balloon valvotomy unsuccessful. Valve replaced with mechanical prosthesis via median sternotomy. AF prophylaxis with BB. Antithrombotic prophylaxis with Coumadin, target INR 2.5-3.5. Heparin bridge until INR > 2. Adjunctive baby ASA until INR stable in therapeutic range. 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 No prolonged vasoactive support. Staggered intro of heart failure meds as tolerated. Acute postoperative respiratory insufficiency - Exacerbated by preop CHF w pulmonary edema and bilateral pleural effusions. Successfully extubated POD#1. Acute on chronic anemia - Baseline Hct low 20s, receiving Epo qweek with HD. Expected surgical blood losses and coagulopathy repleted with 5u PRBC, 4u FFP, and 2u plt. 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 Fluid management and HD schedule as per nephrology. Chronic anxiety - Ativan resumed. Plan: Stop IV hep. No Coumadin today. Clip Vwires tomorrow. Cont metoprolol 50 mg BID. Wean O2. Baseline postop echo today. 02/10/18 06:54 Subjective: Feels well. Breathing easier. Happy to have tubes out. Mobilizing phleqm. Objective: Vital Signs Temp Pulse Resp BP Pulse Ox 36.6 C 69 18 116/81 H 98 02/10/18 04:00 02/10/18 04:00 02/10/18 04:00 02/10/18 04:00 02/10/18 04:00 Laboratory Results 02/10/18 05:15 02/10/18 05:15 02/09/18 02/10/18 02/11/18 05:59 05:59 05:59 Intake Total 2352 1560 Output Total 3200 Balance -848 1560 PT 33.4 SEC (12.0-15.0) H 02/10/18 05:15 INR 3.31 (0.83-1.16) H 02/10/18 05:15 Physical Exam - Physical Exam General Appearance: alert, no apparent distress Respiratory: rhonchi, other (chest tube sites oozy, no active bleeding) Cardiac/Chest: regular rate, rhythm, other (Sternotomy CDI. Vwires intact.) Abdomen: non-tender, soft Skin: warm/dry Extremities: other (no visible edema) ICD10 Worksheet Patient Problems: Problems Problem Status Onset Acute blood loss anemia Acute Chest pain Acute Coagulopathy Acute Fever Acute Prosthetic mitral valve stenosis Acute S/P mitral valve replacement with metallic valve Acute ~02/07/18 Shortness of breath Acute Tachycardia Acute ESRD (end stage renal disease) Chronic Dyspnea Acute ESRD on hemodialysis Acute Elevated troponin Acute Headache Acute Hypoxia Acute Pneumonia Acute Postoperative pneumothorax Acute Pulmonary edema Acute Anemia Chronic CHF (congestive heart failure) Chronic Hypertensive urgency Chronic Severe mitral regurgitation Chronic
--- NOTE | 2018-02-10 08:13 | SOAPPROG ---
SOAP Progress Note Assessment/Plan: Assessment: ESRD: on HD MWF as outpatient --Had HD on 02/06, in OR on 02/07, and again on 02/08 -HD today with goal UF 3-4 kg, assess again tomorrow for need (volume) Anemia CKD: --continue to trend post-op --Epo 10,000 units sq qweekly-- last dose 02/06 --consider transfusion if Hb < 7 (prefer leukopoor RBCs given future transplant implications) HTN: BP good off Minoxidil and Amlodipine Mitral stenosis in prosthetic valve: s/p redo mitral valve replacement on 02/07 MBD of CKD: phos 8.8 and will start Ca Acetate binder, low phos diet Hyponatremia: hypervolemic, should improve with HD. May need fluid restriction tightened if persists. I discussed with restaurant floor manager Paige Ac MD [facility] pager [phone] 02/10/18 08:15 Subjective: Pt seen on dialysis at 08:09. He is using LUE AVF with Qb 400, 2K/2.5Ca bath, goal UF 3-4 kg. Tolerating well so far. Notes some sob and pain with inspiration (not new). No n/v, LE edema. Objective: Vital Signs Temp Pulse Resp BP Pulse Ox 36.7 C 82 16 129/79 H 98 02/10/18 07:34 02/10/18 07:34 02/10/18 07:34 02/10/18 07:34 02/10/18 07:34 Laboratory Results 02/10/18 05:15 02/10/18 05:15 02/09/18 02/10/18 02/11/18 05:59 05:59 05:59 Intake Total 2352 1560 Output Total 3200 Balance -848 1560 PT 33.4 SEC (12.0-15.0) H 02/10/18 05:15 INR 3.31 (0.83-1.16) H 02/10/18 05:15 Physical Exam - Physical Exam General Appearance: alert, no apparent distress, other (on O2 face mask but not tachypneic) EENT: other (mmm) Neck: supple Respiratory: rales (bilat) Cardiac/Chest: regular rate, rhythm, other (sternal incision c/d/i) Abdomen: normal bowel sounds, non-tender, soft Skin: warm/dry Extremities: other (no edema) Neuro/Psych: alert, oriented x 3 ICD10 Worksheet Patient Problems: Problems Problem Status Onset Acute blood loss anemia Acute Chest pain Acute Coagulopathy Acute Fever Acute Prosthetic mitral valve stenosis Acute S/P mitral valve replacement with metallic valve Acute ~02/07/18 Shortness of breath Acute Tachycardia Acute ESRD (end stage renal disease) Chronic Dyspnea Acute ESRD on hemodialysis Acute Elevated troponin Acute Headache Acute Hypoxia Acute Pneumonia Acute Postoperative pneumothorax Acute Pulmonary edema Acute Anemia Chronic CHF (congestive heart failure) Chronic Hypertensive urgency Chronic Severe mitral regurgitation Chronic
--- NOTE | 2018-02-10 09:28 | ASMTCMCOM ---
CM Note CM Note Notes: 02/10/2018 Case Management Note Pt is post op day #3. PT eval recommending cardiac rehab. There are no identified case management d/c needs. Pt to resume MWF dialysis with [facility] and start cardiac rehab after d/c. Case Management will follow in case needs change. Date Signed: 02/10/2018 09:27 AM Electronically Signed By:Lindy Ibarra RN
[2018-02-10] MEDS: CALCIUM ACETATE 667 MG CAP PO SCH ×2 (11:58→17:19)
[2018-02-10] MEDS: ASPIRIN EC 81 MG TAB PO SCH (11:58)
[2018-02-10] MEDS: METOPROLOL TARTRATE 50 MG TAB PO SCH ×2 (11:58→20:15)
--- NOTE | 2018-02-10 13:05 | HOSPPROG ---
Hospitalist Progress Note Assessment/Plan: #Prosthetic mitral stenosis: initial repair 07/28, s/p Balloon mitral valve valvuloplasty unsuccessful, POD Day #3 redo MVR with mechanical valve -echo today -Post op care and Anticoagulation per surgery -chest tube management per surg #Acute hypoxemic resp failure/Pulmonary Edema -Lasix per CV surgery team #Acute Hypoxic resp failure - extubated 02/08, currently 4 LPM #Hyperkalemia: -HD per renal #ESRD: cont HD per renal. #Anemia of renal disease: Has required multiple transfusions, Hgb stable today at 9.2 -Epo per renal #Hypotension - improved, responded to albumin -holding minoxidil and amlodipine #HTN: resume BB #Diet: per surgery #Disp: cont inpatient admission. ADD uncertain. Subjective: Pt doing well. No complaints. Objective: Vital Signs Temp Pulse Resp BP Pulse Ox 36.8 C 86 12 128/79 H 97 02/10/18 11:49 02/10/18 11:49 02/10/18 11:49 02/10/18 11:49 02/10/18 11:49 Laboratory Results 02/10/18 05:15 02/10/18 05:15 02/09/18 02/10/18 02/11/18 05:59 05:59 05:59 Intake Total 2352 1560 Output Total 3200 4200 Balance -848 1560 -4200 PT 33.4 SEC (12.0-15.0) H 02/10/18 05:15 INR 3.31 (0.83-1.16) H 02/10/18 05:15 - Physical Exam Constitutional: no apparent distress Eyes: PERRL Ears, Nose, Mouth, Throat: moist mucous membranes Cardiovascular: regular rate and rhythym Respiratory: no respiratory distress Gastrointestinal: normoactive bowel sounds, soft, non-tender abdomen Skin: warm Musculoskeletal: full muscle strength Neurologic: AAOx3 Psychiatric: interacting appropriately ICD10 Worksheet Patient Problems: Problems Problem Status Onset Acute blood loss anemia Acute Chest pain Acute Coagulopathy Acute Fever Acute Prosthetic mitral valve stenosis Acute S/P mitral valve replacement with metallic valve Acute ~02/07/18 Shortness of breath Acute Tachycardia Acute ESRD (end stage renal disease) Chronic Dyspnea Acute ESRD on hemodialysis Acute Elevated troponin Acute Headache Acute Hypoxia Acute Pneumonia Acute Postoperative pneumothorax Acute Pulmonary edema Acute Anemia Chronic CHF (congestive heart failure) Chronic Hypertensive urgency Chronic Severe mitral regurgitation Chronic
[2018-02-10] MEDS: PANTOPRAZOLE SODIUM 40 MG TAB PO SCH (20:15)
[2018-02-10] MEDS ORDERED: SENNOSIDES/DOCUSATE SODIUM TAB PO PRN (21:00)
[2018-02-11] MEDS: LORazepam 1 MG TAB PO PRN ×5 (00:16→22:08)
[2018-02-11] MEDS: oxyCODONE IR 5 MG TAB PO PRN ×5 (00:16→22:08)
[2018-02-11] MEDS: OXYCODONE/APAP 5/325 TAB PO PRN (06:35)
[2018-02-11 07:16] LABS: INR 4.13 (0.83-1.16); PROTIME(PATIENT) 39.6 SEC (12.0-15.0)
--- NOTE | 2018-02-11 07:26 | SOAPPROG ---
SOAP Progress Note Assessment/Plan: POD #4: Redo MVR #27 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 Attempted balloon valvotomy unsuccessful. Valve replaced with mechanical prosthesis via median sternotomy. AF prophylaxis with BB. Antithrombotic prophylaxis with Coumadin, target INR 2.5-3.5. Heparin bridge until INR > 2. Adjunctive baby ASA until INR stable in therapeutic range. 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 No prolonged vasoactive support. Staggered intro of heart failure meds as tolerated. Acute postoperative respiratory insufficiency - Exacerbated by preop CHF w pulmonary edema and bilateral pleural effusions. Successfully extubated POD#1. Acute on chronic anemia - Baseline Hct low 20s, receiving Epo qweek with HD. Expected surgical blood losses and coagulopathy repleted with 5u PRBC, 4u FFP, and 2u plt. 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 Fluid management and HD schedule as per nephrology. Chronic anxiety - Ativan resumed. Subjective: Would like diet orders changed. Denies pain/SOB. Objective: Vital Signs Temp Pulse Resp BP Pulse Ox 36.6 C 88 20 136/83 H 94 02/11/18 04:00 02/11/18 04:00 02/11/18 04:00 02/11/18 04:00 02/11/18 04:00 Laboratory Results 02/11/18 06:25 02/10/18 02/11/18 02/12/18 05:59 05:59 05:59 Intake Total 1560 1530 Output Total 4550 Balance 1560 -3020 PT 39.6 SEC (12.0-15.0) H 02/11/18 06:25 INR 4.13 (0.83-1.16) H 02/11/18 06:25 Physical Exam - Physical Exam General Appearance: WD/WN, alert, anxiety EENT: No scleral icterus (R), No scleral icterus (L) Neck: normal inspection Respiratory: No respiratory distress Cardiac/Chest: regular rate, rhythm Abdomen: non-tender, soft, No distended Skin: normal color, warm/dry Extremities: No pedal edema Neuro/Psych: no motor/sensory deficits, alert, normal mood/affect, oriented x 3 ICD10 Worksheet Patient Problems: Problems Problem Status Onset Acute blood loss anemia Acute Chest pain Acute Coagulopathy Acute Fever Acute Prosthetic mitral valve stenosis Acute S/P mitral valve replacement with metallic valve Acute ~02/07/18 Shortness of breath Acute Tachycardia Acute ESRD (end stage renal disease) Chronic Dyspnea Acute ESRD on hemodialysis Acute Elevated troponin Acute Headache Acute Hypoxia Acute Pneumonia Acute Postoperative pneumothorax Acute Pulmonary edema Acute Anemia Chronic CHF (congestive heart failure) Chronic Hypertensive urgency Chronic Severe mitral regurgitation Chronic
[2018-02-11] MEDS: CALCIUM ACETATE 667 MG CAP PO SCH ×3 (08:05→18:34)
[2018-02-11] MEDS: ASPIRIN EC 81 MG TAB PO SCH (08:05)
[2018-02-11] MEDS: METOPROLOL TARTRATE 50 MG TAB PO SCH ×2 (08:05→22:07)
[2018-02-11] MEDS: traMADol 50 MG TAB PO PRN ×3 (09:47→23:23)
--- NOTE | 2018-02-11 12:12 | SOAPPROG ---
JASON Progress Note Assessment/Plan: Assessment: 1. ESRD Next HD tomorrow. His volume status is much improved. 2. Anemia Continue [place]RIA 3. HTN This is at goa. 4. Valvular heart disease He is now stabilized. Plan: 01/30/18 09:55 02/11/18 12:11 Subjective: Feels much better Objective: Vital Signs Temp Pulse Resp BP Pulse Ox 36.9 C 90 18 129/87 H 93 02/11/18 08:00 02/11/18 08:00 02/11/18 08:00 02/11/18 08:00 02/11/18 08:00 Laboratory Results 02/11/18 06:25 02/11/18 06:25 02/10/18 02/11/18 02/12/18 05:59 05:59 05:59 Intake Total 1560 1530 Output Total 4550 Balance 1560 -3020 PT 39.6 SEC (12.0-15.0) H 02/11/18 06:25 INR 4.13 (0.83-1.16) H 02/11/18 06:25 Physical Exam - Physical Exam General Appearance: no apparent distress Respiratory: lungs clear Cardiac/Chest: regular rate, rhythm Extremities: normal inspection ICD10 Worksheet Patient Problems: Problems Problem Status Onset Acute blood loss anemia Acute Chest pain Acute Coagulopathy Acute Fever Acute Prosthetic mitral valve stenosis Acute S/P mitral valve replacement with metallic valve Acute ~02/07/18 Shortness of breath Acute Tachycardia Acute ESRD (end stage renal disease) Chronic Dyspnea Acute ESRD on hemodialysis Acute Elevated troponin Acute Headache Acute Hypoxia Acute Pneumonia Acute Postoperative pneumothorax Acute Pulmonary edema Acute Anemia Chronic CHF (congestive heart failure) Chronic Hypertensive urgency Chronic Severe mitral regurgitation Chronic
[2018-02-11] MEDS: HYDROCODONE/APAP 5/325 TAB PO PRN ×2 (12:42→16:57)
--- NOTE | 2018-02-11 14:48 | ECHO ---
[email or web address] [address] [address] Main: [phone] Fax: Transthoracic Echocardiogram Name: CONRADO ESPINOSA MR#: [id number] Study Date: 02/11/2018 Study Time: 12:46 PM Date of : 1990 Age: 27 year(s) Height: 175.3 cm (69 in.) Weight: 69.4 kg (153 lb.) BSA: 1.84 m2 Gender: Male Examination: Echo Indication: s/p Redo MVR/assess EF and mitral valvwe Image Quality: Contrast: Requested by: Sweetie Camarillo BP: 159 mmHg/109 mmHg Heart Rate: Rhythm: Indication: s/p Redo MVR/assess EF and mitral valvwe Procedure Staff Receptionist Nurse: Sarah Gutierrez RDCS Reading Physician: Shant Rogers MD Requesting Provider: Conclusions: Normal size left ventricle. Concentric LV hypertrophy. Normal global systolic LV function. The left atrium is moderately dilated. A mechanical mitral valve prosthesis is in place.. MV mean PG is 6mmHG.. Severe tricuspid regurgitation is present. TV leaflets appear to not coapt completely. RVSP is 54mmHG.. Measurements: Chambers Valvular Assessment AV/MV Valvular Assessment TV/PV Normal Normal Normal Name Value Range Name Value Range Name Value Range LVDd (2D): 4.2 cm (4.2 cm-5.9 AV Vmax: 1.64 m/s (1 m/s-1.7 TR Vmax: 3.30 mm/s ( - ) cm) m/s) TR PGmax: 44 mmHg ( - ) AV meanP mmHg ( - ) syst. PAP: 54 mmHg ( - ) MV E Vmax: 2.15 m/s ( - ) MV A Vmax: 0.90 m/s ( - ) MV E/A: 2.39 ( - ) MV meanP mmHg ( - ) Continued Measurements: Chambers Valvular Assessment AV/MV Valvular Assessment TV/PV Name Value Name Value Name Value LADs: 4.0 cm MV E' Septal: 0.09 m/s CVP (est.): 10 mmHg LADs Lon.0 cm MV E/E' Septal: 23.50 LA Area: 29.9 cm2 MV E/E' Lateral: 25.40 Patient: CONRADO ESPINOSA Study Date: 02/11/2018 Page 1 of 2 12:46 PM MV VTI: 45.10 cm Findings: Left Ventricle: Normal size left ventricle. Concentric LV hypertrophy. Normal global systolic LV function. Diastolic dysfunction is present. . LV septal motion appears dyskinetic/post op state.. Right Ventricle: Normal size right ventricle. Left Atrium: The left atrium is moderately dilated. Right Atrium: The right atrium is mildly dilated. Mitral Valve: A mechanical mitral valve prosthesis is in place.. MV mean PG is 6mmHG.. Aortic Valve: The aortic valve is normal in appearance and function. Tricuspid Valve: Severe tricuspid regurgitation is present. TV leaflets appear to not coapt completely. RVSP is 54mmHG.. Pulmonic Valve: The pulmonic valve is normal in appearance and function. Mild to moderate pulmonic valve regurgitation. Aorta: The aorta is normal. Pericardium: No pericardial effusion. (No Signature Object) Patient: CONRADO ESPINOSA Study Date: 02/11/2018 Page 2 of 2 12:46 PM [id number]
--- NOTE | 2018-02-11 15:53 | ASMTCMCOM ---
CM Note CM Note Notes: CM met with Pt. Pt just learned that his mother was evicted from her home with 3 days to move. When she does resettle she will no longer be able to have space for him in his home. Pt is facing homelessness with significant medical issues. Pt is attempting to contact his father that he is estranged from, to request money for a hotel. A request for a [facility] application has been requested so that there is an option of referring ihim to a SNF until he is able to manage independently. CM to follow. D/C Plan: TBD Date Signed: 02/11/2018 03:52 PM Electronically Signed By:Brie Olsen
[2018-02-11] MEDS: PANTOPRAZOLE SODIUM 40 MG TAB PO SCH (22:07)
[2018-02-11] MEDS ORDERED: KETOROLAC 30 MG/1 ML SDV IVP ONE (23:45)
[2018-02-11] MEDS: ZOLPIDEM TARTRATE 5 MG TAB PO SCH (23:47)
[2018-02-12] MEDS: oxyCODONE IR 5 MG TAB PO PRN ×3 (00:57→21:36)
[2018-02-12 06:50] LABS: INR 2.89 (0.83-1.16); PROTIME(PATIENT) 30.1 SEC (12.0-15.0)
--- NOTE | 2018-02-12 07:29 | SOAPPROG ---
SOAP Progress Note Assessment/Plan: POD #5: Redo MVR #27 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 Attempted balloon valvotomy unsuccessful. Valve replaced with mechanical prosthesis via median sternotomy. AF prophylaxis with BB. Antithrombotic prophylaxis with Coumadin, target INR 2.5-3.5. Adjunctive baby ASA for life. 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 No prolonged vasoactive support. Staggered intro of heart failure meds as tolerated. Acute postoperative respiratory insufficiency - Exacerbated by preop CHF w pulmonary edema and bilateral pleural effusions. Successfully extubated POD#1. Acute on chronic anemia - Baseline Hct low 20s, receiving Epo qweek with HD. Expected surgical blood losses and coagulopathy repleted. 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 Fluid management and HD schedule as per nephrology. Chronic anxiety - Ativan resumed. Subjective: Denies pain/SOB. Needs to find a place to stay in [place] as mother was just evicted. Objective: Vital Signs Temp Pulse Resp BP Pulse Ox 36.7 C 83 18 136/94 H 94 02/12/18 05:53 02/12/18 05:53 02/12/18 05:53 02/12/18 05:53 02/12/18 05:53 Laboratory Results 02/12/18 05:45 02/12/18 05:45 02/11/18 02/12/18 02/13/18 05:59 05:59 05:59 Intake Total 1530 1860 Output Total 4550 0 Balance -3020 1860 PT 30.1 SEC (12.0-15.0) H 02/12/18 05:45 INR 2.89 (0.83-1.16) H 02/12/18 05:45 Physical Exam - Physical Exam General Appearance: WD/WN, alert, no apparent distress EENT: No scleral icterus (R), No scleral icterus (L) Neck: normal inspection Respiratory: No respiratory distress Cardiac/Chest: regular rate, rhythm Abdomen: non-tender, soft, No distended Skin: normal color, warm/dry Extremities: No pedal edema Neuro/Psych: no motor/sensory deficits, alert, normal mood/affect, oriented x 3 ICD10 Worksheet Patient Problems: Problems Problem Status Onset Acute blood loss anemia Acute Chest pain Acute Coagulopathy Acute Fever Acute Prosthetic mitral valve stenosis Acute S/P mitral valve replacement with metallic valve Acute ~02/07/18 Shortness of breath Acute Tachycardia Acute ESRD (end stage renal disease) Chronic Dyspnea Acute ESRD on hemodialysis Acute Elevated troponin Acute Headache Acute Hypoxia Acute Pneumonia Acute Postoperative pneumothorax Acute Pulmonary edema Acute Anemia Chronic CHF (congestive heart failure) Chronic Hypertensive urgency Chronic Severe mitral regurgitation Chronic
[2018-02-12] MEDS: ASPIRIN EC 81 MG TAB PO SCH (08:21)
[2018-02-12] MEDS: HYDROCODONE/APAP 5/325 TAB PO PRN (08:21)
[2018-02-12] MEDS: CALCIUM ACETATE 667 MG CAP PO SCH ×3 (08:21→17:36)
[2018-02-12] MEDS: LORazepam 1 MG TAB PO PRN ×4 (08:21→21:36)
[2018-02-12] MEDS ORDERED: ACETAMINOPHEN 325 MG TAB PO PRN (10:01)
[2018-02-12] MEDS: METOPROLOL TARTRATE 50 MG TAB PO SCH ×2 (12:36→21:37)
[2018-02-12] MEDS: traMADol 50 MG TAB PO PRN ×2 (12:37→17:35)
[2018-02-12] MEDS ORDERED: WARFARIN SODIUM 1 MG TAB PO ONE (16:00)
--- NOTE | 2018-02-12 16:57 | SOAPPROG ---
JASON Progress Note Assessment/Plan: Assessment/Plan: ESRD: on HD MWF. HD done today. - Will do HD again tomorrow for more fluid removal. - Will otherwise continue MWF schedule. Anemia: Hgb continues to downtrend s/p transfusions, concerning for hemolysis. - Pt on epo. - Transfused 1 unit PRBCs on HD today. - Will continue to monitor. Hypervolemia: pt still has extra volume, got 4.2L removed today. Will plan on more fluid removal tomorrow on HD. HTN: BP ok, meds on hold. Subjective: No acute events overnight. Pt still had some dyspnea this am, had 4.2L removed on HD and got a unit PRBCs during, feels his breathing is doing better now. He has chest pain. Objective: Vital Signs Temp Pulse Resp BP Pulse Ox 36.8 C 86 20 125/89 H 94 02/12/18 16:00 02/12/18 16:00 02/12/18 16:00 02/12/18 16:00 02/12/18 16:00 Laboratory Results 02/12/18 05:45 02/12/18 05:45 02/11/18 02/12/18 02/13/18 05:59 05:59 05:59 Intake Total 1530 1860 Output Total 4550 0 Balance -3020 1860 PT 30.1 SEC (12.0-15.0) H 02/12/18 05:45 INR 2.89 (0.83-1.16) H 02/12/18 05:45 General: alert and oriented, no acute distress Eyes; EOMI, PERRL OP: Clear CV: RRR Resp: nonlabored respirations on NC Abd: Soft, NT/ND Ext: +1 edema BLE Neuro: CN II-XII grossly intact ICD10 Worksheet Patient Problems: Problems Problem Status Onset Acute blood loss anemia Acute Chest pain Acute Coagulopathy Acute Fever Acute Prosthetic mitral valve stenosis Acute S/P mitral valve replacement with metallic valve Acute ~02/07/18 Shortness of breath Acute Tachycardia Acute ESRD (end stage renal disease) Chronic Dyspnea Acute ESRD on hemodialysis Acute Elevated troponin Acute Headache Acute Hypoxia Acute Pneumonia Acute Postoperative pneumothorax Acute Pulmonary edema Acute Anemia Chronic CHF (congestive heart failure) Chronic Hypertensive urgency Chronic Severe mitral regurgitation Chronic
[2018-02-12] MEDS: PANTOPRAZOLE SODIUM 40 MG TAB PO SCH (21:36)
[2018-02-12] MEDS: ZOLPIDEM TARTRATE 5 MG TAB PO SCH (22:40)
[2018-02-13] MEDS: oxyCODONE IR 5 MG TAB PO PRN ×4 (01:34→17:05)
[2018-02-13] MEDS: LORazepam 1 MG TAB PO PRN ×4 (01:40→19:57)
[2018-02-13 05:34] LABS: INR 2.46 (0.83-1.16); PROTIME(PATIENT) 26.6 SEC (12.0-15.0)
--- NOTE | 2018-02-13 06:47 | SOAPPROG ---
SOAP Progress Note Assessment/Plan: POD #6: Redo MVR #27 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 Attempted balloon valvotomy unsuccessful. Valve replaced with mechanical prosthesis via median sternotomy. AF prophylaxis with BB. Antithrombotic prophylaxis with Coumadin, target INR 2.5-3.5. Adjunctive baby ASA for life. 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 No prolonged vasoactive support. Staggered intro of heart failure meds as tolerated. Acute postoperative respiratory insufficiency - Exacerbated by preop CHF w pulmonary edema and bilateral pleural effusions. Successfully extubated POD#1. Acute on chronic anemia - Baseline Hct low 20s, receiving Epo qweek with HD. Expected surgical blood losses and coagulopathy repleted. 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 Fluid management and HD schedule as per nephrology. Chronic anxiety - Ativan resumed. Disposition - clear for discharge once social issues resolved. Subjective: OK with being transferred to SNF. Denies pain/SOB. Objective: Vital Signs Temp Pulse Resp BP Pulse Ox 36.7 C 86 16 145/95 H 98 02/13/18 04:00 02/13/18 04:00 02/13/18 04:00 02/13/18 04:00 02/13/18 04:00 Laboratory Results 02/13/18 05:15 02/13/18 05:15 02/12/18 02/13/18 02/14/18 05:59 05:59 05:59 Intake Total 1860 1350 Output Total 0 3930 Balance 1860 -2580 PT 26.6 SEC (12.0-15.0) H 02/13/18 05:15 INR 2.46 (0.83-1.16) H 02/13/18 05:15 Physical Exam - Physical Exam General Appearance: WD/WN, alert, no apparent distress EENT: No scleral icterus (R), No scleral icterus (L) Neck: normal inspection Respiratory: No respiratory distress Cardiac/Chest: regular rate, rhythm Abdomen: non-tender, soft, No distended Skin: normal color, warm/dry Extremities: No pedal edema Neuro/Psych: no motor/sensory deficits, alert, normal mood/affect, oriented x 3 ICD10 Worksheet Patient Problems: Problems Problem Status Onset Acute blood loss anemia Acute Chest pain Acute Coagulopathy Acute Fever Acute Prosthetic mitral valve stenosis Acute S/P mitral valve replacement with metallic valve Acute ~02/07/18 Shortness of breath Acute Tachycardia Acute ESRD (end stage renal disease) Chronic Dyspnea Acute ESRD on hemodialysis Acute Elevated troponin Acute Headache Acute Hypoxia Acute Pneumonia Acute Postoperative pneumothorax Acute Pulmonary edema Acute Anemia Chronic CHF (congestive heart failure) Chronic Hypertensive urgency Chronic Severe mitral regurgitation Chronic
[2018-02-13] MEDS: CALCIUM ACETATE 667 MG CAP PO SCH ×3 (09:03→18:38)
[2018-02-13] MEDS: ASPIRIN EC 81 MG TAB PO SCH (09:03)
[2018-02-13] MEDS: METOPROLOL TARTRATE 50 MG TAB PO SCH ×2 (11:43→19:58)
[2018-02-13] MEDS: EPOETIN ALFA 10,000 UNIT/ML VIAL IVP SCH (11:47)
--- NOTE | 2018-02-13 12:19 | SOAPPROG ---
SOAP Progress Note Assessment/Plan: Assessment/Plan: ESRD: on HD MWF. HD done today. - Will do HD again tomorrow per routine. Anemia: Hgb continues to downtrend s/p transfusions, concerning for hemolysis. - Pt on epo. - Transfused 1 unit PRBCs on HD yesterday. - Will continue to monitor. Hypervolemia: pt still has extra volume, got 3L removed today. Will plan on more fluid removal tomorrow on HD. HTN: BP ok, meds on hold. Subjective: No acute events overnight. Pt had HD this am and again had 3L removed, still feels swollen in legs. Breathing much better, O2 down to 1L, he is walking around and feeling much better overall. Objective: Vital Signs Temp Pulse Resp BP Pulse Ox 36.8 C 92 15 143/104 H 99 02/13/18 11:18 02/13/18 11:18 02/13/18 11:18 02/13/18 11:18 02/13/18 11:18 Laboratory Results 02/13/18 05:15 02/13/18 05:15 02/12/18 02/13/18 02/14/18 05:59 05:59 05:59 Intake Total 1860 1350 Output Total 0 3930 Balance 1860 -2580 PT 26.6 SEC (12.0-15.0) H 02/13/18 05:15 INR 2.46 (0.83-1.16) H 02/13/18 05:15 General: alert and oriented, no acute distress Eyes; EOMI, PERRL OP: Clear CV: RRR Resp: nonlabored respirations on NC Abd: Soft, NT Ext: +1 edema BLE Neuro: CN II-XII Grossly intact, no asterixis Psych: cooperative ICD10 Worksheet Patient Problems: Problems Problem Status Onset Acute blood loss anemia Acute Chest pain Acute Coagulopathy Acute Fever Acute Prosthetic mitral valve stenosis Acute S/P mitral valve replacement with metallic valve Acute ~02/07/18 Shortness of breath Acute Tachycardia Acute ESRD (end stage renal disease) Chronic Dyspnea Acute ESRD on hemodialysis Acute Elevated troponin Acute Headache Acute Hypoxia Acute Pneumonia Acute Postoperative pneumothorax Acute Pulmonary edema Acute Anemia Chronic CHF (congestive heart failure) Chronic Hypertensive urgency Chronic Severe mitral regurgitation Chronic
[2018-02-13] MEDS: traMADol 50 MG TAB PO PRN (14:56)
--- NOTE | 2018-02-13 15:46 | ASMTCMCOM ---
CM Note CM Note Notes: This is a difficult discharge. Patient has significant post-hospitalization needs (dialysis and cardiac f/u) but is newly homeless. His parents are staying at a motel in [place] and cannot take him to appointments. I think the risk of not being followed closely by his providers outweighs staying with his parents at a motel. I sent referrals to area SNF, and [facility] has agreed to accept him. He'll be able to stay with his HD providers at [facility], as well as come for f/u at [facility]. Patient has agreed although I can tell he is reluctant to go somewhere full of "old people and druggies." I encouraged him to look for a place to rent while he is convalescing at [facility]. Hopefully their Social Workers can help him. Case Management will follow. Date Signed: 02/13/2018 03:46 PM Electronically Signed By:Kasey Molina RN
[2018-02-13] MEDS ORDERED: WARFARIN SODIUM 5 MG TAB PO ONE (16:00)
[2018-02-13] MEDS: PANTOPRAZOLE SODIUM 40 MG TAB PO SCH (19:57)
[2018-02-13] MEDS: ZOLPIDEM TARTRATE 5 MG TAB PO SCH (22:35)
[2018-02-14 04:31] LABS: INR 2.52 (0.83-1.16); PROTIME(PATIENT) 27.1 SEC (12.0-15.0)
[2018-02-14 05:47] VITALS: BP 150/97
--- NOTE | 2018-02-14 06:55 | SOAPPROG ---
SOAP Progress Note Assessment/Plan: POD #7: Redo MVR #27 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 Attempted balloon valvotomy unsuccessful. Valve replaced with mechanical prosthesis via median sternotomy. AF prophylaxis with BB. Antithrombotic prophylaxis with Coumadin, target INR 2.5-3.5. Adjunctive baby ASA for life. 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 No prolonged vasoactive support. Staggered intro of heart failure meds as tolerated. Acute postoperative respiratory insufficiency - Exacerbated by preop CHF w pulmonary edema and bilateral pleural effusions. Successfully extubated POD#1. Acute on chronic anemia - Baseline Hct low 20s, receiving Epo qweek with HD. Expected surgical blood losses and coagulopathy repleted. 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 Fluid management and HD schedule as per nephrology. Chronic anxiety - Stable. Disposition - clear for discharge to [facility] today. Subjective: Feels well. Happy to be going to [facility]. Objective: Vital Signs Temp Pulse Resp BP Pulse Ox 37 C 85 17 150/97 H 95 02/14/18 04:00 02/14/18 04:00 02/14/18 04:00 02/14/18 04:00 02/14/18 04:00 Laboratory Results 02/14/18 03:48 02/14/18 03:48 02/13/18 02/14/18 02/15/18 05:59 05:59 05:59 Intake Total 1350 1480 Output Total 3930 150 Balance -2580 1330 PT 27.1 SEC (12.0-15.0) H 02/14/18 03:48 INR 2.52 (0.83-1.16) H 02/14/18 03:48 Physical Exam - Physical Exam General Appearance: WD/WN, alert, no apparent distress EENT: No scleral icterus (R), No scleral icterus (L) Neck: normal inspection Respiratory: No respiratory distress Cardiac/Chest: regular rate, rhythm Abdomen: non-tender, soft, No distended Skin: normal color, warm/dry Extremities: pedal edema Neuro/Psych: no motor/sensory deficits, alert, normal mood/affect, oriented x 3 ICD10 Worksheet Patient Problems: Problems Problem Status Onset Acute blood loss anemia Acute Chest pain Acute Coagulopathy Acute Fever Acute Prosthetic mitral valve stenosis Acute S/P mitral valve replacement with metallic valve Acute ~02/07/18 Shortness of breath Acute Tachycardia Acute ESRD (end stage renal disease) Chronic Dyspnea Acute ESRD on hemodialysis Acute Elevated troponin Acute Headache Acute Hypoxia Acute Pneumonia Acute Postoperative pneumothorax Acute Pulmonary edema Acute Anemia Chronic CHF (congestive heart failure) Chronic Hypertensive urgency Chronic Severe mitral regurgitation Chronic
[2018-02-14] MEDS: LORazepam 1 MG TAB PO PRN ×2 (07:27→11:59)
[2018-02-14] MEDS: oxyCODONE IR 5 MG TAB PO PRN ×2 (07:27→11:58)
[2018-02-14] MEDS ORDERED: CARVEDILOL 25 MG TAB PO SCH (09:00)
--- NOTE | 2018-02-14 09:15 | PDIAF ---
- Diagnosis Diagnosis: s/p mechanical mitral valve replacement Code Status: Full Code - Medication Management Discharge Medications: Medications to Continue on Transfer Aspirin EC [Aspirin EC 81 mg (*)] 81 mg PO DAILY 01/12/18 [Last Taken 01/27/18] Carvedilol 25 mg PO BIDMEAL 01/12/18 [Last Taken 01/27/18 18:00] Diazepam [Valium 5 MG (*)] 5 mg PO TID PRN 01/12/18 [Last Taken 01/27/18] Gabapentin [Neurontin 100 MG (*)] 100 mg PO HS 01/12/18 [Last Taken 01/26/18] Minoxidil [Minoxidil 10 mg (*)] 20 mg PO BIDMEAL 01/12/18 [Last Taken 01/27/18 18:00] amLODIPine BESYLATE [Amlodipine Besylate] 10 mg PO DAILY 01/12/18 [Last Taken ] Acetaminophen [Tylenol 325mg (*)] 650 mg PO Q4HRS PRN tab 02/14/18 [Last Taken Unknown] Calcium Acetate [Phoslo (*)] 1,334 mg PO TIDMEAL cap 02/14/18 [Last Taken Unknown] Epoetin Kirit [Procrit 80679 UNIT/ML (*)] 10,000 unit IVP Q7D vial 02/14/18 [ Last Taken Unknown] Warfarin Sodium [Coumadin 7.5MG (*)] 7.5 mg PO DAILY AT 4PM tab 02/14/18 [Last Taken Unknown] Zolpidem Tartrate [Ambien 5MG (*)] 5 mg PO HS tab 02/14/18 [Last Taken Unknown] oxyCODONE HCL/ACETAMINOPHEN [Percocet 5-325 mg Tablet] 1 - 2 each PO Q4H PRN # 60 tablet 02/14/18 [Last Taken Unknown] traMADol [Ultram 50 mg (*)] 50 - 100 mg PO Q4HRS PRN tab 02/14/18 [Last Taken Unknown] Discharge Medications: Refer to the Discharge Home Medication list for PRN reason. PICC Care - Routine: N/A - Orders Services needed: Registered Nurse, Certified Customer Leader, Master Spooler , Physical Therapy, Occupational Therapy Isolation Type: None Oxygen: 1 L/Min via nasal cannula, continuous Diet Recommendation: other (Renal Diet) Diet Texture: Regular Texture Diet, Thin Liquids, Meds Whole w/Liquids Weigh Patient: daily [place]: No Additional Instructions: Discharge Instructions: Call [facility] cardiac rehab to enroll in phase 2 classes if not already arranged. Sternal precautions x 4 weeks. Avoid lifting > 10lbs with an outstretched arm. Avoid push/pull activities. No driving until cleared by surgery. Elevate low legs at rest. Avoid prolonged standing or dangling. Cleanse wounds once daily with soap and water. Avoid immersion (pool, hot tub, bath) until scabs off. Ok to leave all wounds open to air. Avoid creams or ointments until scabs fall off. Log daily vital signs once home: weight, heart rate, blood pressure, and pulse oximetry if on oxygen. Call [employer] for overnight weight gain > 2lbs, weekly gain > 5lbs or worsening leg swelling. Call [employer] for resting heart rate > 120 OR for systolic blood pressure consistently < 90 or > 160. Target oxygen saturation > 89%. Ok to use [id number] medications for bowel function. Chest x-ray Instructions: Please obtain a chest x-ray prior to surgical appointment. Chest x-rays don't require an appointment. Come to the Emergency Room entrance at the [facility] location. Sign in at the computer kiosk in the entryway. You will be given a number and may sit in the waiting area until called. You will be registered and directed to the Imaging desk on the 1st floor. This process can take up to an hour. Make sure you allow enough time before your appointment to have your x-ray taken. - Labs/Radiology PT/INR Date: 02/15/18 (INR goal is 2.5-3.5 for mechanical valve. Very important to check INR daily until stable. ) Imaging Orders: CXR at [facility] on 02/25 prior to follow-up with Dr. Farr - Follow Up Care Current Providers and Referrals: Smooth Farr DO [Doctor of Osteopathy] - 02/25/18 11:45 am NONE *PRIMARY CARE P,. [Primary Care Provider] - As per Instructions Shant Low MD [Medical Doctor] -
--- NOTE | 2018-02-14 09:18 | PDDCSUM ---
Discharge Summary Discharge Summary: ADMISSION DATE: 01/29/18 DISCHARGE DATE: 02/14/18 DISCHARGE DIAGNOSES 1. Prosthetic mitral valve stenosis 2. Class IV acute on chronic diastolic heart failure 3. ESRD PROCEDURES 02/05/18, Mason Jackson: 1. Balloon mitral valvuloplasty 02/06/18, Smooth Farr: 1. Reoperation mitral valve replacement with #27 [employer] mechanical prosthesis 2. Intraoperative hemodialysis HOSPITAL COURSE BY PROBLEM LIST 1. Prosthetic mitral valve stenosis - unsuccessful attempt at balloon valvuloplasty with need for mechanical mitral valve replacement. Lifetime Coumadin, INR goal 2.5-3.5, as well as adjunctive baby ASA. 2. Class IV acute on chronic diastolic heart failure - optimized with additional dialysis treatments. 3. Acute on chronic anemia with coagulopathy - total of 11 PRBCs and 4 FFP transfused. 4. ESRD - HD and further management as per renal. CONDITION Good DISPOSITION SNF, [facility] ACTIVITY Pt was instructed on sternal precautions, activity limitations, and which problems to call [facility] with. Please see Discharge Plan in chart for specifics. DISCHARGE MEDICATIONS 1. Aspirin EC [Aspirin EC 81 mg (*)] 81 mg PO DAILY 2. Carvedilol 25 mg PO BIDMEAL 3. Diazepam [Valium 5 MG (*)] 5 mg PO TID PRN 4. Gabapentin [Neurontin 100 MG (*)] 100 mg PO HS 5. Minoxidil [Minoxidil 10 mg (*)] 20 mg PO BIDMEAL 6. amLODIPine BESYLATE [Amlodipine Besylate] 10 mg PO DAILY 7. Acetaminophen [Tylenol 325mg (*)] 650 mg PO Q4HRS PRN 8. Calcium Acetate [Phoslo (*)] 1,334 mg PO TIDMEAL 9. Epoetin Kirit [Procrit 85506 UNIT/ML (*)] 10,000 unit IVP Q7D 10. Warfarin Sodium [Coumadin 7.5MG (*)] 7.5 mg PO DAILY AT 4PM 11. Zolpidem Tartrate [Ambien 5MG (*)] 5 mg PO HS 12. oxyCODONE HCL/ACETAMINOPHEN [Percocet 5-325 mg Tablet] 1 - 2 each PO Q4H PRN 13. traMADol [Ultram 50 mg (*)] 50 - 100 mg PO Q4HRS PRN PENDING STUDIES/LABS 1. CXR prior to surgical follow-up 2. INR 02/15 FOLLOW-UP 1. Smooth Farr, 02/25/18, 11:45 AM
[2018-02-14] MEDS: CALCIUM ACETATE 667 MG CAP PO SCH ×2 (10:04→11:59)
[2018-02-14] MEDS: ASPIRIN EC 81 MG TAB PO SCH (10:04)
[2018-02-14] MEDS ORDERED: MINOXIDIL 10 MG TAB PO SCH (10:15)
--- NOTE | 2018-02-14 11:17 | SOAPPROG ---
SOAP Progress Note Assessment/Plan: Assessment/Plan: ESRD: on HD MWF. Pt seen on HD today, next HD on Saturday per routine. Anemia: Hgb continues to downtrend s/p transfusions, concerning for hemolysis. - Pt on epo. - Transfused 1 unit PRBCs on HD on Saturday, Hgb stable at 7.4. - Will continue to monitor. Hypervolemia: pt still has extra volume but much improved, will continue to modulate on HD. NADIA: phos at goal on phos binder. Subjective: No acute events overnight. Pt notes breathing is better, feels like he does not need O2 supplementation anymore. His swelling in legs has improved. He notes going to [facility] today after HD. He is on HD now and tolerating well. Objective: Vital Signs Temp Pulse Resp BP Pulse Ox 37 C 85 17 150/97 H 95 02/14/18 04:00 02/14/18 04:00 02/14/18 04:00 02/14/18 04:00 02/14/18 04:00 Laboratory Results 02/14/18 03:48 02/14/18 03:48 02/13/18 02/14/18 02/15/18 05:59 05:59 05:59 Intake Total 1350 1480 Output Total 3930 150 Balance -2580 1330 PT 27.1 SEC (12.0-15.0) H 02/14/18 03:48 INR 2.52 (0.83-1.16) H 02/14/18 03:48 General: alert and oriented, no acute distress Eyes: EOMI, PERRL OP: Clear CV: RRR Resp: nonlabored respirations on NC Abd: Soft, NT/ND Ext: trace edema BLE Neuro: CN II-XII grossly intact, no asterixis PsycH: cooperative ICD10 Worksheet Patient Problems: Problems Problem Status Onset Acute blood loss anemia Acute Chest pain Acute Coagulopathy Acute Fever Acute Prosthetic mitral valve stenosis Acute S/P mitral valve replacement with metallic valve Acute ~02/07/18 Shortness of breath Acute Tachycardia Acute ESRD (end stage renal disease) Chronic Dyspnea Acute ESRD on hemodialysis Acute Elevated troponin Acute Headache Acute Hypoxia Acute Pneumonia Acute Postoperative pneumothorax Acute Pulmonary edema Acute Anemia Chronic CHF (congestive heart failure) Chronic Hypertensive urgency Chronic Severe mitral regurgitation Chronic
[2018-02-14] MEDS ORDERED: WARFARIN SODIUM 7.5 MG TAB PO SCH (16:00)
--- NOTE | 2018-02-14 16:09 | ASMTDCNOTE ---
Case Management Discharge Discharge Order Complete? Answers: Yes Patient to Obtain Answers: Other Notes: Lizeth Trujillo Medications Transportation Arranged Answers: Other Notes: transport arranged by Lizeth Trujillo Transport will Pick (Date 02/14/2018 02:00 PM & Time) Faxed Final Orders Answers: Yes Agency/Facility Transfer Answers: Yes Report Printed & Faxed to Receiving Agency Discharge Comments Notes: 02/14/2018 Case Management Note Completed discharge arranged by previous top case assembler. Notified Lizeth Trujillo of d/c. Faxed final orders. Lizeth Trujillo arranged transport for 1400 pepper picker. Notified RN to call report. Pt to resume Dialysis MWF and start cardiac outpatient rehab. Date Signed: 02/14/2018 04:08 PM Electronically Signed By:Lindy Ibarra RN
--- NOTE | 2018-02-14 17:12 | ASDISCHSUM ---
Discharge Information Plan Status:SNF Medically Cleared to Leave:02/14/2018 Discharge Date:02/14/2018 02:05 PM D/C Disposition:Snf Facility ADT D/C Disposition:Home, Routine, Self-Care Projected Discharge Date:02/14/2018 11:00 AM Transportation at D/C:Wheelchair Van Discharge Delay Reason: Follow-Up Date:02/14/2018 11:00 AM Discharge Slot: Final Diagnosis: Placement Information Referral Type:*Retirement/SNF Referral ID:[id number] Provider Name:Lizeth Trujillo/MIKEY Herrera Address 1:[address] Phone Number: Address 2: Fax Number: [facility]:[place] Selection Factors: State:[place] Patient Contact Information Contact Name:JEFFERY Relationship:Mother Address:[address] Work Phone: [facility]:[place] Alternate Phone: [facility]/Zip Code:[place] [address] Email: Financial Information Financial Class:Medicare Primary Plan Desc:MEDICARE INPATIENT Primary Plan Number:[id number] Secondary Plan Desc:MED[place] Secondary Plan Number:[id number] Assessment Information LACE LACE Length of stay for Answers: 7-13 days current admission Acuity / Level of Answers: Yes Care: Did the patient have an inpatient admission? Comorbidities - select Answers: Congestive heart failure all that apply Moderate or severe liver or renal disease Other Notes: chronic anemia, h/p mitral valve prolapse s /p replacement # of Emergency department Answers: 5-8 visits in the last 6 months Social determinants Answers: History of substance abuse (ETOH, street drugs, prescription drugs, etc.) Score: 22 Date Signed: 02/06/2018 02:53 PM Electronically Signed By:Tami Baltazar [facility] CM Progress Note CM Note CM Note Notes: 01/28/2018 Case Management Note Pt was admitted for shortness of breath and pulmonary edema. Pt is well known to [facility] with a recent d/c over the past weekend. Met w/pt to discuss d/c needs. Pt expresses frustration with frequent re admissions "I just want to be healthier". Pt plans for his 3 children ages 4, 5, and 6 to visit him in the hospital and finds those visits improve his outlook. Pt has strong support from his parents. Pt declined any spiritual care or assistance from or Yeni Mullins. Pt has dialysis 3 times a week MW at [facility]. There are no further case management d/c needs identified at this time. Case Management to follow. Date Signed: 01/28/2018 03:58 PM Electronically Signed By:Lindy Ibarra RN [facility] CM Progress Note CM Note CM Note Notes: CM discussed case w/ SHAVON Butler. CM met w/ pt for dispo planning. Pt is awaiting materials for valve replacement. No other needs identified at this time. CM available for changes. Plan: Independent Date Signed: 01/31/2018 09:53 AM Electronically Signed By:ELIDIA Francisco [facility] CM Progress Note CM Note CM Note Notes: 02/02/2018 Case Management Note Discussed case with RN. Pt has surgery planned for Saturday pending arrival of necessary surgical equipment. Case Management d/c poc: to be determined. Case Management to follow. Date Signed: 02/02/2018 04:06 PM Electronically Signed By:Lindy Ibarra RN [facility] CM Progress Note CM Note CM Note Notes: Patient is s/p balloon mitral valvuloplasty to alleviate his heart failure symptoms and help him move closer to kidney transplant. He is stable in the ICU, and nephrology is monitoring his need for HD. Patient's family has been at bedside today. Case Managment will follow for discharge planning. Date Signed: 02/05/2018 12:40 PM Electronically Signed By:Kasey Molina RN [facility] CM Progress Note CM Note CM Note Notes: Pt extubated this morning, declined PT. Therapy recs pending. Pt to dialysis today. CM will continue to follow. Date Signed: 02/08/2018 01:42 PM Electronically Signed By:PERNELL Zamudio [facility] CM Progress Note CM Note CM Note Notes: 02/10/2018 Case Management Note Pt is post op day #3. PT eval recommending cardiac rehab. There are no identified case management d/c needs. Pt to resume MWF dialysis with [facility] and start cardiac rehab after d/c. Case Management will follow in case needs change. Date Signed: 02/10/2018 09:27 AM Electronically Signed By:Lindy Ibarra RN [facility] CM Progress Note CM Note CM Note Notes: CM met with Pt. Pt just learned that his mother was evicted from her home with 3 days to move. When she does resettle she will no longer be able to have space for him in his home. Pt is facing homelessness with significant medical issues. Pt is attempting to contact his father that he is estranged from, to request money for a hotel. A request for a [facility] application has been requested so that there is an option of referring ihim to a SNF until he is able to manage independently. CM to follow. D/C Plan: TBD Date Signed: 02/11/2018 03:52 PM Electronically Signed By:Brie Olsen [facility] LOLITA Progress Note CM Note CM Note Notes: This is a difficult discharge. Patient has significant post-hospitalization needs (dialysis and cardiac f/u) but is newly homeless. His parents are staying at a motel in [place] and cannot take him to appointments. I think the risk of not being followed closely by his providers outweighs staying with his parents at a motel. I sent referrals to area SNF, and [facility] has agreed to accept him. He'll be able to stay with his HD providers at [facility], as well as come for f/u at [facility]. Patient has agreed although I can tell he is reluctant to go somewhere full of "old people and druggies." I encouraged him to look for a place to rent while he is convalescing at [facility]. Hopefully their Social Workers can help him. Case Management will follow. Date Signed: 02/13/2018 03:46 PM Electronically Signed By:Kasey Molina RN Case Management Discharge Plan Note Case Management Discharge Discharge Order Complete? Answers: Yes Patient to Obtain Answers: Other [facility] Transportation Arranged Answers: Other Notes: transport arranged by [facility] Transport will Pick (Date 02/14/2018 02:00 PM & Time) Faxed Final Orders Answers: Yes Agency/Facility Transfer Answers: Yes Report Printed & Faxed to Receiving Agency Discharge Comments Notes: 02/14/2018 Case Management Note Completed discharge arranged by previous director case management. Notified L[facility] Cassandra of d/c. Faxed final orders. 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 Notified RN to call report. Pt to resume Dialysis MWF and start cardiac outpatient rehab. Date Signed: 02/14/2018 04:08 PM Electronically Signed By:Lindy Ibarra RN Intervention Information Intervention Type:*MICHELLE-Signed Date of Service:01/28/2018 10:19 AM Patient Type:Observation Staff Member:Tami Baltazar Hours: Discipline: Severity: Comment: Intervention Type:*IM-Signed Date of Service:02/14/2018 03:13 PM Patient Type:Inpatient Staff Member:Tami Baltazar Hours: Discipline: Severity: Comment:
--- NOTE | 2018-02-25 11:19 | ECHO ---
[email or web address] [address] [address] Main: [phone] Fax: Transesophageal Echocardiography Name: CONRADO ESPINOSA MR#: [id number] Study Date: 02/05/2018 Study Time: 08:06 AM Date of : 1990 Age: 27 year(s) Height: ( ) Weight: ( ) BSA: Gender: Male Examination: SANJAY Indication: balloon valvuloplasty of MVR Image Quality: Contrast: Requested by: Navjot Villarreal Heart Rate: Rhythm: BP: / Procedure Staff Sack Department Supervisor: Anne Valadez [facility] Reading Physician: Shant Low MD Requesting Provider: Conclusions: IAS transseptal puncture with ballon. Left to right color flow shunt noted.. Patient has a bioprosthetic MVR. Thickened posterior leaflet noted with systolic doming. Mild MR pre and post valvuloplasty. Gradient across the MVR pre-balloon 13-19mmHg and 10mmHg after balloon.. Measurements: Chambers Valvular Assessment AV/MV Valvular Assessment TV/PV Normal Normal Normal Name Value Range Name Value Range Name Value Range MV meanP mmHg ( - ) Additional Measurements: Valvular Assessment AV/MV Name Value MV VTI: 69.80 cm Findings: Left Atrium: IAS transseptal puncture with ballon. Left to right color flow shunt noted.. Mitral Valve: Patient has a bioprosthetic MVR. Thickened posterior leaflet noted with systolic doming. Mild MR pre and post valvuloplasty. Gradient across the MVR pre-balloon 13-19mmHg and 10mmHg after Patient: CONRADO ESPINOSA Study Date: 02/05/2018 Page 1 of 2 08:06 AM balloon.. l1n (No Signature Object) Patient: CONRADO ESPINOSA Study Date: 02/05/2018 Page 2 of 2 08:06 AM [id number]
== END 2018-02-14 14:05 | DRG 219 ==
LOC: F2W 23:43 → OBSVTOIN 01-29 16:55 → F2N 02-05 09:00 → F2W 02-09 13:35
PROVIDERS: ADMIT Student in an Organized Health Care Education/Training Program; ATTEND Thoracic Surgery (Cardiothoracic Vascular Surgery)
PROC: 30233N1 Transfusion of Nonautologous Red Blood Cells into Peripheral Vein, Percutaneous Approach (ICD-10-PCS; 2018-01-28)
PROC: 5A1D70Z Performance of Urinary Filtration, Intermittent, Less than 6 Hours Per Day (ICD-10-PCS; 2018-01-29)
PROC: 027 Heart and Great Vessels, Dilation (ICD-10-PCS; 2018-02-05)
PROC: 5A09358 Assistance with Respiratory Ventilation, Less than 24 Consecutive Hours, Intermittent Positive Airway Pressure (ICD-10-PCS; 2018-02-05)
PROC: 30233R1 Transfusion of Nonautologous Platelets into Peripheral Vein, Percutaneous Approach (ICD-10-PCS; 2018-02-07)
PROC: 30233K1 Transfusion of Nonautologous Frozen Plasma into Peripheral Vein, Percutaneous Approach (ICD-10-PCS; 2018-02-07)
PROC: 02RG0JZ Replacement of Mitral Valve with Synthetic Substitute, Open Approach (ICD-10-PCS; principal; 2018-02-07 12:45)
PROC: 5A1221Z Performance of Cardiac Output, Continuous (ICD-10-PCS; principal; 2018-02-07 12:45)
DX: T82.857A Stenosis of other cardiac prosthetic devices, implants and grafts, initial encounter (principal); I50.33 Acute on chronic diastolic (congestive) heart failure; N18.6 End stage renal disease; J96.01 Acute respiratory failure with hypoxia; D63.1 Anemia in chronic kidney disease; D68.4 Acquired coagulation factor deficiency; I97.618 Postprocedural hemorrhage of a circulatory system organ or structure following other circulatory system procedure; Q60.0 Renal agenesis, unilateral; I13.2 Hypertensive heart and chronic kidney disease with heart failure and with stage 5 chronic kidney disease, or end stage renal disease; N25.81 Secondary hyperparathyroidism of renal origin; D62 Acute posthemorrhagic anemia; K02.9 Dental caries, unspecified; I27.20 Pulmonary hypertension, unspecified; E87.5 Hyperkalemia; I89.0 Lymphedema, not elsewhere classified; D69.59 Other secondary thrombocytopenia; G43.909 Migraine, unspecified, not intractable, without status migrainosus; F41.9 Anxiety disorder, unspecified; Z99.2 Dependence on renal dialysis; Z72.0 Tobacco use
CPT/HCPCS: 82435-PO; 82565-PO; 82947-PO; 83010-90; 84132-PO; 84295-PO; 84520-PO; 85014-PO; 85520-90; 92610-GN; 97161-GP; 97165-GO; C1760; C1769; C1893; G0378; G8978-GP-CH; G8979-GP-CH; G8980-GP-CH; G8987-GO-CJ; G8988-GO-CI; G8996-GN-CH; G8997-GN-CH; G8998-GN-CH; J0153; J0171; J0282; J0690; J0885; J1170; J1200; J1265; J1644; J1815; J1885; J1956; J2001; J2060; J2150; J2250; J2260; J2270; J2370; J2704; J2720; J2930; J3010; J3475; J7060; P9016; P9017; P9037; P9040; P9041; Q9967

== ENCOUNTER → 2018-02-25 | Outpatient (CLI) | payer OTHER, MEDICAID | LOC: FIMAGING 11:08 → EDSTATUS 11:09 | PROVIDERS: ATTEND Thoracic Surgery (Cardiothoracic Vascular Surgery) | DX: Z98.890 Other specified postprocedural states (principal); J81.1 Chronic pulmonary edema; J90 Pleural effusion, not elsewhere classified; Z95.2 Presence of prosthetic heart valve ==

== ENCOUNTER 2018-08-20 15:33 | Emergency (ER) | payer OTHER, MEDICAID ==
--- NOTE | 2018-08-20 15:33 | EDPHY ---
H & P Time Seen by Provider: 08/20/18 15:35 Constitutional: Initial Vital Signs Temperature (C) 36.9 C 08/20/18 15:45 Heart Rate 100 08/20/18 15:45 Respiratory Rate 18 08/20/18 15:45 Blood Pressure 98/46 L 08/20/18 15:45 O2 Sat (%) 96 08/20/18 15:45 O2 Delivery Mode Room Air Allergies/Adverse Reactions: No Known Allergies Allergy (Unverified 08/20/18 15:47) Home Medications: Medication Instructions Recorded Aspirin EC [Aspirin EC 81 mg (*)] 81 mg PO DAILY 01/12/18 Carvedilol 25 mg PO BIDMEAL 01/12/18 Diazepam [Valium 5 MG (*)] 5 mg PO TID PRN 01/12/18 Gabapentin [Neurontin 100 MG (*)] 100 mg PO HS 01/12/18 Minoxidil [Minoxidil 10 mg (*)] 20 mg PO BIDMEAL 01/12/18 amLODIPine BESYLATE [Amlodipine 10 mg PO DAILY 01/12/18 Besylate] Acetaminophen [Tylenol 325mg (*)] 650 mg PO Q4HRS PRN tab 02/14/18 Calcium Acetate [Phoslo (*)] 1,334 mg PO TIDMEAL cap 02/14/18 Epoetin Kirit [Procrit 31288 10,000 unit IVP Q7D vial 02/14/18 UNIT/ML] Warfarin Sodium [Coumadin 7.5MG 7.5 mg PO DAILY AT 4PM tab 02/14/18 (*)] Zolpidem Tartrate [Ambien 5MG (*)] 5 mg PO HS tab 02/14/18 oxyCODONE HCL/ACETAMINOPHEN 1 - 2 each PO Q4H PRN #60 tablet 02/14/18 [Percocet 5-325 mg Tablet] traMADol [Ultram 50 mg (*)] 50 - 100 mg PO Q4HRS PRN tab 02/14/18 Amox Tr/K Clav (Augmentin) 500 mg PO DAILY 7 Days tab 04/08/18 [Augmentin 500/125 MG TAB (*)] Albuterol [Proventil Inhaler] 1 - 2 puffs IH Q4 #1 mdi 08/20/18 Azithromycin [Zithromax] 250 mg PO DAILY #6 tab 08/20/18 Medical Decision Making - Diagnostics Imaging Results: Imaging Impressions Chest X-Ray 08/20/18 15:38 Impression: 1. Patchy bilateral infiltrates involving the mid to lower lungs less prominent when compared to the prior study. Consider recurrent pulmonary edema/CHF versus recurrent bilateral pneumonia. Imaging: I viewed and interpreted images myself ED Course/Re-evaluation: CHIEF COMPLAINT: Cough, chest pain. HISTORY OF PRESENT ILLNESS: This patient is a 27 year old male with history of ESRD on dialysis, CHF, and prosthetic mitral valve arriving via EMS from his residence at [facility]. He complains of one week history of productive cough with green sputum. He has a sharp, constant chest pain associated with his coughing. He complains of some pain in his back as well. On EMS arrival, he had 90% SpO2 on room air, which improved to 95% with 2L O2 in transport. EMS crew note that norovirus has been going around at [facility], but the patient denies any current GI complaints. He had his regular hemodialysis treatment today as scheduled. The patient had a porcine valve replacement, but this failed and was replaced with a mechanical valve four months ago. He has doing well since that surgery until his current illness. REVIEW OF SYSTEMS: A comprehensive 10 system review of systems is otherwise negative aside from elements mentioned in the history of present illness and medical decision making. PHYSICAL EXAM: HR, BP, O2 Sat, RR. Temp noted General Appearance: Alert, well hydrated, appropriate, and non-toxic appearing. Head: Atraumatic without scalp tenderness or obvious injury Eyes: Pupils equal, round, reactive to light and accommodation, EOMI, no trauma , no injection. Ears: Clear bilaterally, no perforation, normal landmarks Nose: Atraumatic, no rhinorrhea, clear. Throat: There is no erythema or exudates, no lesions, normal tonsils, mucus membranes moist. Neck: Supple, 2+ carotid upstroke, nontender, no lymphadenopathy. Respiratory: Diffuse coarse rhonchi throughout, good air movement. Cardiovascular: Regular rate and rhythm, no murmurs, rubs, or gallops. Bilateral carotid, radial, dorsalis pedis, and posterior tibial pulses intact. Good capillary refill all extremities. Gastrointestinal: Abdomen is soft, nontender, non-distended, no masses, no rebound, no guarding, no peritoneal signs. Musculoskeletal: Normal active ROM of all extremities, atraumatic. Neurological: Alert, appropriate, and interactive. The patient has normal DTRs and non-focal cranial nerves, motor, sensory, and cerebellar exam. Skin: Well-healed median sternotomy incision. No rashes, good turgor, no nodules on palpation. Past medical history: Diastolic congestive heart failure, end-stage renal disease on hemodialysis, prosthetic mitral valve stenosis Past surgical history: Mechanical mitral valve replacement. Family history: Noncontributory Social history: Resides at [facility] DIFFERENTIAL DIAGNOSIS: The differential diagnosis for the patient's chest pain included but was not limited to myocardial ischemia, pulmonary embolus, chest wall pain, pleural inflammation, and pulmonary infectious causes such as pneumonia, bronchitis. MEDICAL DECISION MAKIN27 year old male with history of ESRD, prosthetic heart valve presents with one week history of URI symptoms and cough with associated chest discomfort. Plan for chest x-ray. Plan to administer DuoNeb for symptom relief. Patient has history of prosthetic valve replacement and his symptoms do not appear to be of cardiac etiology, he has been otherwise well since his last surgery. Though I will consider cardiac causes, I will proceed with evaluation and treatment for pulmonary infectious causes at this point. Reviewed laboratory studies. Largely unremarkable, BUN and creatinine are elevated but are consistent with prior studies and with his chronic kidney disease. They are actually improved today, as he had dialysis just this morning. His WBC is not elevated today. Reviewed chest x-ray. Patchy bilateral infiltrates, suspicious for early pneumonia vs CHF. This is improved from prior x-ray in March when patient presented to this emergency department with fever. Given his history of prosthetic valve, we will treat with azithromycin. Reassessed patient. Discussed imaging and laboratory results. He is feeling better following DuoNeb administration. Plan to discharge back to [facility] in good condition with z-pack and albuterol inhaler. Follow up and return precautions discussed. He is comfortable with this plan. - Data Points Laboratory Results: Laboratory Results 08/20/18 15:30 08/20/18 15:30 08/20/18 08/20/18 15:30 15:30 WBC 6.55 10^3/uL 10^3/uL (3.80-9.50) RBC 3.22 10^6/uL L 10^6/uL (4.40-6.38) Hgb 10.0 g/dL L g/dL (13.7-17.5) Hct 30.8 % L % (40.0-51.0) MCV 95.7 fL fL (81.5-99.8) MCH 31.1 pg pg (27.9-34.1) MCHC 32.5 g/dL g/dL (32.4-36.7) RDW 14.0 % % (11.5-15.2) Plt Count 195 10^3/uL 10^3/uL (150-400) MPV 9.1 fL fL (8.7-11.7) Neut % (Auto) 72.4 % % (39.3-74.2) Lymph % (Auto) 17.9 % % (15.0-45.0) Freestone % (Auto) 5.2 % % (4.5-13.0) Eos % (Auto) 3.1 % % (0.6-7.6) Baso % (Auto) 0.6 % % (0.3-1.7) Nucleat RBC Rel Count 0.0 % % (0.0-0.2) Absolute Neuts (auto) 4.75 10^3/uL 10^3/uL (1.70-6.50) Absolute Lymphs (auto) 1.17 10^3/uL 10^3/uL (1.00-3.00) Absolute Monos (auto) 0.34 10^3/uL 10^3/uL (0.30-0.80) Absolute Eos (auto) 0.20 10^3/uL 10^3/uL (0.03-0.40) Absolute Basos (auto) 0.04 10^3/uL 10^3/uL (0.02-0.10) Absolute Nucleated RBC 0.00 10^3/uL 10^3/uL (0-0.01) Immature Gran % 0.8 % % (0.0-1.1) Immature Gran # 0.05 10^3/uL 10^3/uL (0.00-0.10) Sodium 139 mEq/L mEq/L (135-145) Potassium 4.0 mEq/L mEq/L (3.5-5.2) Chloride 98 mEq/L mEq/L (97-110) Carbon Dioxide 33 mEq/l H mEq/l (22-31) Anion Gap 8 mEq/L mEq/L (6-14) BUN 28 mg/dL H mg/dL (7-23) Creatinine 5.5 mg/dL H mg/dL (0.7-1.3) Estimated GFR 13 Glucose 97 mg/dL mg/dL (70-100) Calcium 8.6 mg/dL mg/dL (8.5-10.4) Medications Given: Discontinued Medications Albuterol/Ipratropium (Duoneb) 3 ml IH EDNOW ONE Stop: 08/20/18 15:39 Last Admin: 08/20/18 15:42 Dose: 3 ml Departure - Departure Disposition: Home, Routine, Self-Care Clinical Impression: Acute bronchitis Qualifiers: Bronchitis organism: other organism Qualified Code(s): J20.8 - Acute bronchitis due to other specified organisms Condition: Good Instructions: Acute Bronchitis (ED) Additional Instructions: Stay well hydrated. If you have a fever, you may use Tylenol or ibuprofen as below. Adult Pain & Fever Control: We recommend Acetaminophen (Tylenol) and Ibuprofen (Motrin, Advil) for pain and fever control. When fever is high or pain severe, both drugs can be used at the same time, but at different intervals. Please note the time differences. Your dose is: Acetaminophen 650mg every 4 to 6 hours. Ibuprofen 600mg every 8 hours with food. Please take the antibiotic azithromycin (z-pack) as directed. Return to the Emergency Department or seek care urgently if your symptoms are worsening despite the above treatment, if you develop shortness of breath, if you're unable to drink fluids secondary to throat pain or other issues, or if you develop high fever, vomiting, diarrhea, or other concerns. Referrals: Anna Miranda MD [Medical Doctor] - As per Instructions Prescriptions: Albuterol [Proventil Inhaler] 1 - 2 puffs IH Q4 #1 mdi Azithromycin [Zithromax] 250 mg PO DAILY #6 tab Report Scribed for: Lawrence Muro Report Scribed by: Rachael Nieves Date of Report: 08/20/18 Time of Report: 16:08
[2018-08-20] MEDS ORDERED: IPRATROPIUM/ALBUTEROL 3 ML DEYVIAL IH ONE (15:38)
[2018-08-20 15:49] LABS: PLATELET COUNT 195 10^3/uL (150-400)
[2018-08-20] MEDS ORDERED: AZITHROMYCIN 250 MG TAB PO ONE (16:42)
[2018-08-20] MEDS ORDERED: ACETAMINOPHEN 500 MG TAB PO ONE (16:49)
[2018-08-20 17:01] VITALS: BP 105/77
== END 2018-08-20 17:01 | disposition home or self-care (01) ==
LOC: EDUNIT#
DX: J20.8 Acute bronchitis due to other specified organisms (principal); N18.6 End stage renal disease; I50.30 Unspecified diastolic (congestive) heart failure; Z99.2 Dependence on renal dialysis; Z95.2 Presence of prosthetic heart valve

== ENCOUNTER 2018-09-14 19:28 | Inpatient (IN) | payer OTHER, MEDICAID ==
--- NOTE | 2018-09-14 19:35 | EDPHY ---
H & P Time Seen by Provider: 09/14/18 19:34 HPI/ROS: CHIEF COMPLAINT: Fever, cough, pleuritic pain HISTORY OF PRESENT ILLNESS: The patient is an anticoagulated 27 y/o male with a history of end-stage renal disease, class IV diastolic heart failure, and mechanical mitral valve who presents from [facility] complaining of cough and pleuritic pain for at least the last two weeks and intermittent fever over the last week. He was evaluated here almost a month ago for similar symptoms and was treated for bronchitis with albuterol and azithromycin. He says those symptoms never improved. His cough has persisted and is sometimes productive with mucus and blood. He complains of sharp pleuritic pain along his right anterior chest radiating through to his back. This pain is worse when coughing. He currently has chills and reports his last Tylenol dose was administered by the facility yesterday. He denies abdominal pain, vomiting, diarrhea. He makes no urine. He did receive a flu vaccination this season. He was admitted 01/27/18 with similar symptoms and ultimately had worsening mitral stenosis/heart failure requiring replacement of his bioprosthetic valve with a mechanical valve. REVIEW OF SYSTEMS: A ten system review of systems was performed and is negative with the exception of the items mentioned in the HPI. He struck his left eye while working on his car and has a black eye as a result. Past medical history: 1. Diastolic congestive heart failure, pulmonary hypertension 2. End-stage renal disease on dialysis, secondary to solitary kidney 3. Anemia 4. Mitral stenosis Past surgical history: 1. Porcine mitral valve July 2017 - replaced 2. balloon mitral valvuloplasty 02/05/[address] Jackson 3. Mechanical mitral valve (#27 [address] [employer] prosthesis) placed 02/06/[address] Farr - lifetime Coumadin 4. Cholecystectomy 5. Left AVF Family history: Noncontributory Social history: Lives at [facility]. Prior smoker. Disabled. Prior medical records reviewed including admission 01/27/18 for similar presentation, worsening mitral stenosis. General Appearance: Alert. Vital signs reviewed. Temperature 39C, tachycardic 120, SpO2 88% on 3lpm. Eyes: Pupils equal and round, left conjunctival injection, no discharge. Anicteric. Left periorbital ecchymosis. ENT, Mouth: Mucous membranes are moist, no oropharyngeal erythema or edema. Neck: No lymphadenopathy, supple. JVD present. Respiratory: Lungs with bilaterally diminished breath sounds, rhonchi and occasional scattered wheezes. Cardiovascular: Tachycardic, murmur present, click of mechanical valve, no rub , or gallop. Gastrointestinal: Abdomen is soft and nontender, no masses or organomegaly. Skin: Hot and dry, no rashes on exposed skin, normal color. Back: Nontender to palpation over the thoracolumbar spine. No CVAT. Extremities: Bilateral lower extremity edema., no calf tenderness or swelling. Fistula with thrill left arm. Neurological: Alert and oriented. Moving all four extremities easily and equally. Rigors. Psychiatric: Normal affect. - Medical/Surgical History Hx Asthma: No Hx Chronic Respiratory Disease: No Hx Diabetes: No Hx Cardiac Disease: Yes Hx Renal Disease: Yes Hx Cirrhosis: No Hx Alcoholism: No Hx HIV/AIDS: No Hx Splenectomy or Spleen Trauma: No Other PMH: PMHx: congenital lack of R kidney, failing L kidney dialysis, HTN, dental caries, chf, mitral valve prolapse w/replacement 07/2017, PNA. PSHx: chani, thoracentisis, av fistula in left distal forarm - Social History Smoking Status: Current every day smoker Constitutional: Initial Vital Signs Temperature (C) 39 C H 09/14/18 19:28 Heart Rate 124 H 09/14/18 19:28 Respiratory Rate 22 H 09/14/18 19:28 Blood Pressure 117/68 09/14/18 19:28 O2 Sat (%) 88 L 09/14/18 19:28 O2 Delivery Mode Nasal Cannula O2 (L/minute) 4 Allergies/Adverse Reactions: No Known Allergies Allergy (Unverified 08/20/18 15:47) Home Medications: Medication Instructions Recorded Gabapentin [Neurontin 100 MG (*)] 100 mg PO HS 01/12/18 Albuterol [Proventil Inhaler HFA 2 puffs IH Q4HRS 09/14/18 (*)] Albuterol [Proventil Inhaler HFA 2 puffs IH Q4HRS PRN 09/14/18 (*)] Benzonatate [Tessalon Pearles (RX)] 200 mg PO BID 09/14/18 Calcium Acetate [Phoslo (*)] 2,001 mg PO TIDMEAL 09/14/18 Calcium Carbonate [Tums 500MG (*)] 500 mg PO Q6HRS PRN 09/14/18 Cyclobenzaprine [Flexeril 10 MG 10 mg PO Q8HRS PRN 09/14/18 (*)] Epoetin Kirit [Epogen 2000 UNIT/ML] 7,600 unit SQ Q21D 09/14/18 HYDROmorphone HCL [Dilaudid 2 mg 2 mg PO Q3HRS PRN 09/14/18 (*)] Metoprolol Tartrate [Lopressor 100 100 mg PO BID 09/14/18 mg (*)] Minoxidil [Minoxidil 10 mg (*)] 10 mg PO BID 09/14/18 Nitroglycerin [Nitrostat 0.4 mg 0.4 mg SL Q5M PRN 09/14/18 (*)] Ondansetron Odt [Zofran Odt] 4 mg PO Q6HRS PRN 09/14/18 Sertraline HCl [Zoloft 100mg (*)] 200 mg PO DAILY 09/14/18 Sevelamer Carbonate [Renvela] 2,400 mg PO TIDMEAL 09/14/18 Warfarin Sodium [Coumadin 3MG (*)] 3 mg PO DAILY16 09/14/18 Warfarin Sodium [Coumadin 4MG (*)] 4 mg PO DAILY16 09/14/18 guaiFENesin [Mucinex 600 MG (*)] 600 mg PO Q12HRS PRN 09/14/18 traZODone [traZODONE 50MG (*)] 50 mg PO HS 09/14/18 diphenhydrAMINE [Benadryl 50 mg IV Q21D 09/15/18 Injection] Medical Decision Making - Diagnostics Imaging: I viewed and interpreted images myself ED Course/Re-evaluation: This is a 27 y/o male with end-stage renal disease, diastolic CHF, and mechanical mitral valve who presents with at least a 2-week history of cough, fever, and pleuritic pain. He is tachycardic at 120, febrile at 39C, and hypoxemic at 88% on 3LPM. He appears systemically ill. Concern for sepsis, pneumonia, endocarditis. Plan for IV, sepsis labs, UA, respiratory pathogen panel, chest x-ray, antipyretics. Meets SIRS screening criteria, does not meet sepsis criteria. 650mg PO Tylenol ordered. Will hold fluids for now due to fluid overload history. Lactate is 1.0. Flu swab negative. Normal WBC. Chest x-ray: bilateral pneumonia. Fluid overload is also an issue. I understand that he has not received complete dialysis for the past week or so and that his weight has been increasing. In addition to infectious symptoms he also has signs and symptoms of fluid overload. Apparently his blood pressures have been running low in dialysis. His blood pressure has been soft in the emergency department. I have given him 1 L of normal saline. 1gm IV Cefepime and 1 L IV NS ordered. Spoke with hospitalist service. Dr. Treviño accepts admission. [facility] has been notified about this patient's admission and will arrange dialysis tomorrow. Differential Diagnosis: Fever in adults including but not limited to pneumonia, urinary tract infection , viral syndrome, and influenza. Shortness of breath including but not limited to pulmonary infectious process, COPD, asthma, pulmonary embolus and congestive heart failure. Critical Care Time: I spent a total of 45 minutes of critical care time in obtaining history, performing a physical exam, bedside monitoring of interventions, collecting and interpreting tests and discussion with consultants but not including time spent performing procedures. He was at risk of cardiopulmonary deterioration. - Data Points Laboratory Results: Laboratory Results 09/14/18 19:35 09/14/18 19:35 Microbiology Results: MICROBIOLOGY 09/14/18 19:35 Nasal, Sinus - Swab Respiratory Panel (PCR) - Final Coronovirus Oc43 Detected Medications Given: Albuterol/Ipratropium (Duoneb) 3 ml IH Q6HRS [facility] Stop: 03/14/19 00:00 Last Admin: 09/15/18 10:32 Dose: 3 ml Benzonatate (Tessalon Pearles) 200 mg PO BID PRN PRN Reason: Cough, Mild Stop: 03/14/19 08:59 Last Admin: 09/14/18 22:48 Dose: 200 mg Calcium Acetate (Phoslo) 2,001 mg PO TIDMEAL [facility] Stop: 03/14/19 07:59 Last Admin: 09/15/18 12:04 Dose: Not Given Cyclobenzaprine HCl (Flexeril) 10 mg PO Q8HRS PRN PRN Reason: Spasms Stop: 03/13/19 21:33 Last Admin: 09/15/18 08:09 Dose: 10 mg Famotidine (Pepcid) 20 mg PO DAILY [facility] Stop: 03/14/19 09:59 Last Admin: 09/15/18 12:04 Dose: Not Given Gabapentin (Neurontin) 300 mg PO BID [facility] Stop: 03/14/19 12:14 Last Admin: 09/15/18 12:29 Dose: 300 mg Hydromorphone HCl (Dilaudid) 2 mg PO Q3HRS PRN PRN Reason: Pain, Severe Stop: 09/24/18 21:33 Last Admin: 09/15/18 11:49 Dose: 2 mg Hydromorphone HCl (Dilaudid) 4 mg PO Q6H PRN PRN Reason: Pain, Severe Able to Take PO Stop: 09/25/18 12:15 Last Admin: 09/15/18 12:30 Dose: 4 mg Sertraline HCl (Zoloft) 200 mg PO DAILY [facility] Stop: 03/14/19 08:59 Last Admin: 09/15/18 12:02 Dose: 200 mg Sevelamer HCl (Renagel) 2,400 mg PO TIDMEAL [facility] Stop: 03/14/19 07:59 Last Admin: 09/15/18 12:04 Dose: Not Given Trazodone HCl (Trazodone) 50 mg PO HS [facility] Stop: 03/13/19 22:32 Last Admin: 09/14/18 22:48 Dose: 50 mg Discontinued Medications Acetaminophen (Tylenol) 650 mg PO EDNOW ONE Stop: 09/14/18 19:45 Last Admin: 09/14/18 19:44 Dose: 650 mg Gabapentin (Neurontin) 100 mg PO HS [facility] Stop: 03/13/19 22:32 Last Admin: 09/14/18 22:48 Dose: 100 mg Heparin Sodium (Porcine) (Heparin Sc Injection) 5,000 unit SC Q8 BRANDY Stop: 03/13/19 21:59 Last Admin: 09/15/18 06:06 Dose: 5,000 unit Cefepime HCl 1 gm/ Sodium (Chloride) 50 mls @ 100 mls/hr IV EDNOW ONE PRN Reason: Protocol Stop: 09/14/18 21:15 Last Admin: 09/14/18 21:06 Dose: 50 mls Sodium Chloride (Ns) 1,000 mls @ 0 mls/hr IV ONCE ONE; Wide Open PRN Reason: Protocol Stop: 09/14/18 20:48 Last Admin: 09/14/18 20:54 Dose: 1,000 mls Departure - Departure Disposition: [facility] Inpatient Acute Clinical Impression: Bilateral pneumonia Qualifiers: Pneumonia type: due to unspecified organism Lung location: unspecified part of lung Qualified Code(s): J18.9 - Pneumonia, unspecified organism Condition: Fair Report Scribed for: Afia Tompkins Report Scribed by: Debbie Zhou Date of Report: 09/14/18 Time of Report: 19:50 Physician Review and Approval Statement: 09/14/18 19:34 Portions of this note were transcribed by the medical education specialist. I, Dr. Afia Tompkins, personally performed the history, physical exam, and medical decision- making; and confirmed the accuracy of the information in the transcribed note.
[2018-09-14] MEDS ORDERED: ACETAMINOPHEN 325 MG TAB PO ONE (19:44)
[2018-09-14 19:53] LABS: PLATELET COUNT 170 10^3/uL (150-400)
[2018-09-14 20:21] LABS: INR 3.82 (0.83-1.16); PROTIME(PATIENT) 37.3 SEC (12.0-15.0)
[2018-09-14] MEDS ORDERED: CEFEPIME HCL 1 GM in NS 50 ML IV ONE (20:46)
[2018-09-14] MEDS ORDERED: NS 1,000 ML IV ONE (20:47)
[2018-09-14] MEDS ORDERED: ACETAMINOPHEN 325 MG TAB PO PRN (21:32)
[2018-09-14] MEDS ORDERED: guaiFENesin 600 MG TAB.ER PO PRN (21:34)
[2018-09-14] MEDS ORDERED: ONDANSETRON DISINTEGRATING 4 MG TAB PO PRN (21:34)
[2018-09-14] MEDS ORDERED: ALBUTEROL 60 PUFFS/8 GM MDI IH PRN (21:34)
[2018-09-14] MEDS ORDERED: CALCIUM CARBONATE 500 MG CHEWABLE TAB PO PRN (21:34)
[2018-09-14] MEDS ORDERED: HYDROmorphONE/DILAUDID 2 MG TAB ONE (22:01)
[2018-09-14] MEDS: HYDROmorphONE/DILAUDID 2 MG TAB PO PRN (22:03)
--- NOTE | 2018-09-14 22:09 | PDCONSULT ---
Recreation Coordinator Note: 27 yo M with PMH significant for ESRD on HD MWF at [facility] (formerly [facility]) with Dr. Rawls and re-do mitral valve replacement admitted with pneumonia. Patient reports that he has had fevers/chills, shortness of breath, and cough that started 2 weeks ago. He presented to ED and was given abx but symptoms continued to worsen. Denies swelling. Reports numbness in both hands. Have been having difficulty with UF with HD recently due to drops in BP. PMH: mitral stenosis s/p 2 mitral valve replacements, most recently in Summer 2017. ESRD. CHF Social Hx: , uses tobacco Family History: no known family history of kidney disease ROS: 11 systems reviewed and negative except for that discussed in HPI above Temp Pulse Resp BP Pulse Ox 37.0 C 97 20 95/36 L 97 09/14/18 22:06 09/14/18 22:06 09/14/18 22:06 09/14/18 22:06 09/14/18 22:06 O2 (L/minute) 4 Exam- General- awake, alert, well-appearing, NAD Eyes- ecchymosis on L eyelid, anicteric sclera HEENT- MMM, no gross oral lesions Pulm- rhonchi bilaterally, breathing comfortably on O2 NC CV- NRRR, no g/m/r Extrem- 1+ edema bilaterally, distal LUE AVF with good bruit and thrill Psych- pleasant, answers questions appropriately Laboratory Results 09/14/18 19:35 09/14/18 19:35 09/14/18 09/14/18 09/14/18 19:35 19:35 19:35 WBC RBC Hgb Hct MCV MCH MCHC RDW Plt Count MPV Neut % (Auto) Lymph % (Auto) Placer % (Auto) Eos % (Auto) Baso % (Auto) Nucleat RBC Rel Count Absolute Neuts (auto) Absolute Lymphs (auto) Absolute Monos (auto) Absolute Eos (auto) Absolute Basos (auto) Absolute Nucleated RBC Immature Gran % Immature Gran # PT 37.3 SEC H SEC (12.0-15.0) INR 3.82 H (0.83-1.16) APTT 90.6 SEC H SEC (23.0-38.0) VBG Lactic Acid Sodium 132 mEq/L L mEq/L (135-145) Potassium 5.0 mEq/L mEq/L (3.5-5.2) Chloride 90 mEq/L L mEq/L (97-110) Carbon Dioxide 29 mEq/l mEq/l (22-31) Anion Gap 13 mEq/L mEq/L (6-14) BUN 31 mg/dL H mg/dL (7-23) Creatinine 8.8 mg/dL H* mg/dL (0.7-1.3) Estimated GFR 7 Glucose 81 mg/dL mg/dL (70-100) Calcium 9.3 mg/dL mg/dL (8.5-10.4) Total Bilirubin 1.4 mg/dL mg/dL (0.1-1.4) NT-Pro-B Natriuret Pep Procalcitonin Nasal Influenza A PCR NEGATIVE FOR FLU A (NEGATIVE) Nasal Influenza B PCR NEGATIVE FOR FLU B (NEGATIVE) 09/14/18 09/14/18 09/14/18 19:35 19:35 19:00 WBC 8.47 10^3/uL 10^3/uL (3.80-9.50) RBC 3.33 10^6/uL L 10^6/uL (4.40-6.38) Hgb 10.5 g/dL L g/dL (13.7-17.5) Hct 31.7 % L % (40.0-51.0) MCV 95.2 fL fL (81.5-99.8) MCH 31.5 pg pg (27.9-34.1) MCHC 33.1 g/dL g/dL (32.4-36.7) RDW 15.9 % H % (11.5-15.2) Plt Count 170 10^3/uL 10^3/uL (150-400) MPV 9.2 fL fL (8.7-11.7) Neut % (Auto) 81.4 % H % (39.3-74.2) Lymph % (Auto) 9.6 % L % (15.0-45.0) Placer % (Auto) 6.3 % % (4.5-13.0) Eos % (Auto) 1.8 % % (0.6-7.6) Baso % (Auto) 0.4 % % (0.3-1.7) Nucleat RBC Rel Count 0.0 % % (0.0-0.2) Absolute Neuts (auto) 6.91 10^3/uL H 10^3/uL (1.70-6.50) Absolute Lymphs (auto) 0.81 10^3/uL L 10^3/uL (1.00-3.00) Absolute Monos (auto) 0.53 10^3/uL 10^3/uL (0.30-0.80) Absolute Eos (auto) 0.15 10^3/uL 10^3/uL (0.03-0.40) Absolute Basos (auto) 0.03 10^3/uL 10^3/uL (0.02-0.10) Absolute Nucleated RBC 0.00 10^3/uL 10^3/uL (0-0.01) Immature Gran % 0.5 % % (0.0-1.1) Immature Gran # 0.04 10^3/uL 10^3/uL (0.00-0.10) PT INR APTT VBG Lactic Acid 1.0 mmol/L mmol/L (0.7-2.1) Sodium Potassium Chloride Carbon Dioxide Anion Gap BUN Creatinine Estimated GFR Glucose Calcium Total Bilirubin NT-Pro-B Natriuret Pep 53211 pg/mL H pg/mL (0-125) Procalcitonin 4.03 ng/mL H ng/mL (0.02-0.10) Nasal Influenza A PCR Nasal Influenza B PCR Assessment/Plan: 27 yo M with PMH significant for ESRD on HD MWF at [facility] ([facility]) with Dr. Rawls and re-do mitral valve replacement admitted with pneumonia. Patient reports that he has had fevers/chills, shortness of breath, and cough that started 2 weeks ago, found to have bilateral pneumonia. # ESRD- --Will continue HD MWF per regular outpatient schedule, HD on 09/15 # Hyperkalemia --Renal diet --Modulate with HD # Anemia- at goal, CTM # Bilateral pneumonia- --Abx per primary team
--- NOTE | 2018-09-14 22:22 | PDGENHP ---
History and Physical - Chief Complaint shortness of breath, cough - History of Present Illness 27yo M with ESRD on HD, MVP now s/p mechanical mitral valve on warfarin, anemia presents with progressively worsening shortness of breath and cough. Symptoms started about a month ago. Came to this ED on 08/20, was diagnosed with bronchitis and given azithromycin. His symptoms didn't really improve but remained stable. Then about 1 week ago he has noted worsening of his shortness of breath, specifically when he lies flat. He wakes up at night short of breath. He does have some chest pain that coincides with coughing. He has had intermittent fevers and chills and has been coughing up greenish sputum. Denies leg swelling. He reports that his renal team has been unable to remove fluid with his HD sessions for the last 1.5 weeks due to hypotension. His weight has steadily increased from mid-140s to 160# over this time. In the ED, a CXR shows bilateral alveolar and interstitial markings. He was febrile to 39.0 and tachycardic in the 120s. His SBP has been around 100. He was given cefepime and 1L NS. Nephrology was consulted and he is being admitted for further evaluation and management. History Information - Allergies/Home Medication List Allergies/Adverse Reactions: No Known Allergies Allergy (Unverified 08/20/18 15:47) Home Medications: Gabapentin [Neurontin 100 MG (*)] 100 mg PO HS 01/12/18 [Last Taken 09/13/18 20: 00] Albuterol [Proventil Inhaler HFA (*)] 2 puffs IH Q4HRS 09/14/18 [Last Taken 10/28 16:00] Albuterol [Proventil Inhaler HFA (*)] 2 puffs IH Q4HRS PRN 09/14/18 [Last Taken Unknown] Benzonatate [Tessalon Pearles (RX)] 200 mg PO BID 09/14/18 [Last Taken 09/14/18 16:00] Calcium Acetate [Phoslo (*)] 2,001 mg PO TIDMEAL 09/14/18 [Last Taken 09/14/18 12:00] Calcium Carbonate [Tums 500MG (*)] 500 mg PO Q6HRS PRN 09/14/18 [Last Taken Unknown] Cyclobenzaprine [Flexeril 10 MG (*)] 10 mg PO Q8HRS PRN 09/14/18 [Last Taken 10/28 15:00] Epoetin Kirit .WITH DIALYSIS 09/14/18 [Last Taken Unknown] HYDROmorphone HCL [Dilaudid 2 mg (*)] 2 mg PO Q3HRS PRN 09/14/18 [Last Taken 10/28 18:11] Iron Injection INJ Q7D 09/14/18 [Last Taken Unknown] Metoprolol Tartrate [Lopressor 100 mg (*)] 100 mg PO BID 09/14/18 [Last Taken 08:00] Minoxidil [Minoxidil 10 mg (*)] 10 mg PO BID 09/14/18 [Last Taken 09/14/18 08:00 ] Nitroglycerin [Nitrostat 0.4 mg (*)] 0.4 mg SL Q5M PRN 09/14/18 [Last Taken Unknown] Ondansetron Odt [Zofran Odt] 4 mg PO Q6HRS PRN 09/14/18 [Last Taken Unknown] Sertraline HCl [Zoloft 100mg (*)] 200 mg PO DAILY 09/14/18 [Last Taken 09/14/18 08:00] Sevelamer Carbonate [Renvela] 2,400 mg PO TIDMEAL 09/14/18 [Last Taken 09/14/18 12:00] Warfarin Sodium [Coumadin 3MG (*)] 3 mg PO DAILY16 09/14/18 [Last Taken 17:00] Warfarin Sodium [Coumadin 4MG (*)] 4 mg PO DAILY16 09/14/18 [Last Taken 17:00] guaiFENesin [Mucinex 600 MG (*)] 600 mg PO Q12HRS PRN 09/14/18 [Last Taken 09/13 17:06] traZODone [traZODONE 50MG (*)] 50 mg PO HS 09/14/18 [Last Taken 09/13/18 20:00] I have personally reviewed and updated: family history, medical history, social history, surgical history - Past Medical History CHF, ESRD Additional medical history: ESRD secondary to solitary kidney on HD [facility] (Dr Rawls), CHF, history of mitral valve prolapse s/p initial bioprosthetic MV complicated by MS now s/p mechanical MVR, anemia of chronic kidney disease, chronic pain on opiates, insomnia - Surgical History Additional surgical history: LUE AVF creation, bioprosthetic MVR, failed MV annuloplasty (01/2018), mechanical MV replacement (01/2018), cholecystectomy - Family History Positive for: non-pertinent Additional family history: No family history of end-stage renal disease or valvular heart disease - Social History Smoking Status: Current every day smoker Alcohol Use: None Drug Use: None Additional social history: Lives at [facility]. Mother just recently 07/2018. No other family in area. Originally from [place]. Review of Systems Review of Systems: ROS: 10pt was reviewed & negative except for what was stated in HPI & below Physical Exam Physical Exam: Temp Pulse Resp BP Pulse Ox 37.0 C 97 20 95/36 L 97 09/14/18 22:06 09/14/18 22:06 09/14/18 22:06 09/14/18 22:06 09/14/18 22:06 O2 (L/minute) 4 Constitutional: no apparent distress, appears nourished, not in pain Eyes: PERRL, anicteric sclera, EOMI Ears, Nose, Mouth, Throat: moist mucous membranes, hearing normal, ears appear normal, no oral mucosal ulcers Cardiovascular: systolic murmur, JVD, tachycardia, edema (RLE), other (audible click) Respiratory: reduced air movement, expiratory wheeze, respiratory distress, No inspiratory crackles Gastrointestinal: normoactive bowel sounds, soft, non-tender abdomen, no palpable masses Genitourinary: no bladder fullness, no bladder tenderness Skin: warm, normal color, no rashes or abrasions, no fluctuance, no induration, No mottled Musculoskeletal: full muscle strength, no muscle tenderness, normal joint ROM, no joint effusions Neurologic: AAOx3 Psychiatric: interacting appropriately, not anxious, not encephalopathic, thought process linear Lab Data & Imaging Review 09/14/18 19:35 09/14/18 19:35 WBC 8.47 10^3/uL (3.80-9.50) 09/14/18 19:35 RBC 3.33 10^6/uL (4.40-6.38) L 09/14/18 19:35 Hgb 10.5 g/dL (13.7-17.5) L 09/14/18 19:35 Hct 31.7 % (40.0-51.0) L 09/14/18 19:35 MCV 95.2 fL (81.5-99.8) 09/14/18 19:35 MCH 31.5 pg (27.9-34.1) 09/14/18 19:35 MCHC 33.1 g/dL (32.4-36.7) 09/14/18 19:35 RDW 15.9 % (11.5-15.2) H 09/14/18 19:35 Plt Count 170 10^3/uL (150-400) 09/14/18 19:35 MPV 9.2 fL (8.7-11.7) 09/14/18 19:35 Neut % (Auto) 81.4 % (39.3-74.2) H 09/14/18 19:35 Lymph % (Auto) 9.6 % (15.0-45.0) L 09/14/18 19:35 [place] % (Auto) 6.3 % (4.5-13.0) 09/14/18 19:35 Eos % (Auto) 1.8 % (0.6-7.6) 09/14/18 19:35 Baso % (Auto) 0.4 % (0.3-1.7) 09/14/18 19:35 Nucleat RBC Rel Count 0.0 % (0.0-0.2) 09/14/18 19:35 Absolute Neuts (auto) 6.91 10^3/uL (1.70-6.50) H 09/14/18 19:35 Absolute Lymphs (auto) 0.81 10^3/uL (1.00-3.00) L 09/14/18 19:35 Absolute Monos (auto) 0.53 10^3/uL (0.30-0.80) 09/14/18 19:35 Absolute Eos (auto) 0.15 10^3/uL (0.03-0.40) 09/14/18 19:35 Absolute Basos (auto) 0.03 10^3/uL (0.02-0.10) 09/14/18 19:35 Absolute Nucleated RBC 0.00 10^3/uL (0-0.01) 09/14/18 19:35 Immature Gran % 0.5 % (0.0-1.1) 09/14/18 19:35 Immature Gran # 0.04 10^3/uL (0.00-0.10) 09/14/18 19:35 PT 37.3 SEC (12.0-15.0) H 09/14/18 19:35 INR 3.82 (0.83-1.16) H 09/14/18 19:35 APTT 90.6 SEC (23.0-38.0) H 09/14/18 19:35 VBG Lactic Acid 1.0 mmol/L (0.7-2.1) 09/14/18 19:35 Sodium 132 mEq/L (135-145) L 09/14/18 19:35 Potassium 5.0 mEq/L (3.5-5.2) 09/14/18 19:35 Chloride 90 mEq/L (97-110) L 09/14/18 19:35 Carbon Dioxide 29 mEq/l (22-31) 09/14/18 19:35 Anion Gap 13 mEq/L (6-14) 09/14/18 19:35 BUN 31 mg/dL (7-23) H 09/14/18 19:35 Creatinine 8.8 mg/dL (0.7-1.3) H* 09/14/18 19:35 Estimated GFR 7 09/14/18 19:35 Glucose 81 mg/dL (70-100) 09/14/18 19:35 Calcium 9.3 mg/dL (8.5-10.4) 09/14/18 19:35 Total Bilirubin 1.4 mg/dL (0.1-1.4) 09/14/18 19:35 NT-Pro-B Natriuret Pep 37789 pg/mL (0-125) H 09/14/18 19:00 Procalcitonin 4.03 ng/mL (0.02-0.10) H 09/14/18 19:00 Nasal Influenza A PCR NEGATIVE FOR FLU A (NEGATIVE) 09/14/18 19:35 Nasal Influenza B PCR NEGATIVE FOR FLU B (NEGATIVE) 09/14/18 19:35 Visualized and Interpreted Chest x-ray results: Yes Visualized and Interpreted imaging results: Yes Interpretation: CXR: increased bilateral alveolar and interstitial markings when compared to 08/20, tiny right pleural effusion, sternotomy wires and mechanical mitral valve, bilateral perihilar fullness (interp by me) Assessment & Plan Assessment: 27yo M with ESRD on HD, MVP now s/p mechanical mitral valve on warfarin, anemia presents with progressively worsening shortness of breath and cough found to be hypoxic with bilateral pulmonary infiltrates and meeting sepsis criteria. Plan: 1. Acute hypoxemic respiratory failure: Increased work of breathing, SpO2 <88% on room air. Currently requiring 3-4L. Suspect multifactorial from pulmonary edema, infection, ? reactive airways disease. - Cefepime 1g q24h - Renal consulted. Will likely need UF with HD tomorrow - Duonebs q6h 2. Sepsis: Tachycardic, febrile, suspected pulmonary source. Procalcitonin elevated. - Antibiotics as above, blood cultures drawn 3. Acute on chronic CHF: Due to valvular heart disease. BNP 22k (in range with prior). - TTE, fluid management with HD - Check ecg/troponin 4. Bilateral pneumonia: - Will cover with cefepime for now - Respiratory viral panel pending 5. ESRD on HD: - Renal consulted - Continue phos binders 6. Anemia: Due to renal disease. No e/o bleeding - Monitor, EPO per renal 7. MVP s/p mechanical mitral valve: INR goal 2.5-3.5, currently slightly above - Continue warfarin, appreciate pharmacy assistance with management of warfarin dosing 8. HTN: BP on low side - Holding home amlodipine and minoxidil 9. Chronic pain with chronic opioid use - Continue home dilaudid, flexeril, gabapentin VTE ppx: SQH Code: Full Diet: renal Dispo: Admit as inpatient for IV therapies
[2018-09-14] MEDS ORDERED: GABAPENTIN 100 MG CAP PO SCH (22:33)
[2018-09-14] MEDS: BENZONATATE 100 MG CAP PO PRN (22:48)
[2018-09-14] MEDS: traZODone 50 MG TAB PO SCH (22:48)
[2018-09-14] MEDS: CYCLOBENZAPRINE 10 MG TAB PO PRN (22:48)
[2018-09-14] MEDS: HEPARIN 5,000 UNIT/0.5 ML INJ SC SCH (22:51)
[2018-09-15] MEDS: IPRATROPIUM/ALBUTEROL 3 ML DEYVIAL IH SCH ×5 (00:36→22:59)
[2018-09-15 05:28] LABS: PLATELET COUNT 136 10^3/uL (150-400)
[2018-09-15] MEDS: HEPARIN 5,000 UNIT/0.5 ML INJ SC SCH ×2 (06:06→15:12)
--- NOTE | 2018-09-15 07:42 | HOSPPROG ---
Hospitalist Progress Note Assessment/Plan: DIAGNOSES: # Acute hypoxemic respiratory failure: Appears to have pneumonia and possibly some pulmonary edema as well - Cefepime 1g q24h - Renal consulted. Will likely need UF with HD tomorrow - Duonebs q6h # Sepsis: Tachycardic, febrile, suspected pulmonary source. Procalcitonin elevated. - blood pressure is somewhat improved # Bilateral pneumonia: Guerrero virus found on respiratory pathogen panel - high procalcitonin, suspicion for bacterial infection Will cover with cefepime for now # Acute on chronic CHF with preserved systolic function: Due to valvular heart disease. BNP 22k (in range with prior). - TTE, fluid management with HD - Check ecg/troponin # bilateral upper extremity pain including both arms and hands, all 10 fingers, and not following any particular radicular pattern present x2 weeks -uncertain etiology, no neck pain -examination in terms of assessing strength is difficult, not certain patient is actually making viable effort during exam # ESRD on HD: - Renal consulted - Continue phos binders # Anemia: Due to renal disease. No e/o bleeding - Monitor, EPO per renal # MVP s/p mechanical mitral valve: INR goal 2.5-3.5, currently slightly above - Continue warfarin, appreciate pharmacy assistance with management of warfarin dosing # HTN: BP on low side - Holding home amlodipine and minoxidil # Chronic pain with chronic opioid use - Continue home dilaudid, flexeril, gabapentin PLANS: * Continue empiric antibiotics * Follow cultures closely * Hemodialysis today * Will review his arm pains with Neurology * Continue anticoagulation * Continue off antihypertensives for the time being follow closely * Ulcer prophylaxis Seen by me on hospitals rounds and multidisciplinary rounds Reviewed with Dr. 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: Sinus Exam: alert oriented mildly anxious skin warm dry color ok resps not labored lungs clear BSs heart regular abd soft nondistended nontender, bowel sounds present limbs examination of upper extremities normal visually, no real edema, joints unremarkable, moves his arms without difficulty plan himself around in the bed though when I ask him for the actively testing ham doctor strength and strength his arms they test very weak, overall inconsistent with what I see when I am watching him move on his own Dialysis access looks good with thrill Imaging: I reviewed yesterday's chest x-ray which shows diffuse interstitial abnormality consistent most likely with viral pneumonia though could not rule out bacterial pneumonia and possibly some heart failure Lab data: Decrease in hemoglobin is probably delusional, anemia of renal disease present White count now 3000 Chem panel consistent with his dialysis schedule otherwise unremarkable No INR done yet today Objective: Vital Signs Temp Pulse Resp BP Pulse Ox 36.7 C 76 14 108/56 L 100 09/14/18 22:27 09/15/18 06:12 09/15/18 06:12 09/15/18 06:00 09/15/18 06:12 Laboratory Results 09/15/18 05:10 09/15/18 05:10 09/14/18 09/15/18 09/16/18 06:59 06:59 06:59 Intake Total 1400 Output Total 0 Balance 1400 PT 37.3 SEC (12.0-15.0) H 09/14/18 19:35 INR 3.82 (0.83-1.16) H 09/14/18 19:35 - Time Spent With Patient Time Spent with Patient: greater than 35 minutes Time Spent with Patient: Greater than 35 minutes spent on this patients care, greater than 50% of time spent counseling, educating, and coordinating care regarding the above mentioned plan. ICD10 Worksheet Patient Problems: Problems Problem Status Onset Bilateral pneumonia Acute Acute blood loss anemia Acute Chest pain Acute Coagulopathy Acute Dyspnea Acute ESRD on hemodialysis Acute Elevated troponin Acute Fever Acute Headache Acute Hypoxia Acute Pneumonia Acute Postoperative pneumothorax Acute Prosthetic mitral valve stenosis Acute Pulmonary edema Acute S/P mitral valve replacement with metallic valve Acute ~02/07/18 Shortness of breath Acute Tachycardia Acute Anemia Chronic CHF (congestive heart failure) Chronic ESRD (end stage renal disease) Chronic Hypertensive urgency Chronic Severe mitral regurgitation Chronic
[2018-09-15] MEDS: HYDROmorphONE/DILAUDID 2 MG TAB PO PRN ×4 (08:08→23:20)
[2018-09-15] MEDS: CYCLOBENZAPRINE 10 MG TAB PO PRN ×2 (08:09→16:36)
--- NOTE | 2018-09-15 09:38 | SOAPPROG ---
SOAP Progress Note Assessment/Plan: Assessment/Plan: 27 yo M with PMH significant for ESRD on HD MWF at [facility] with Dr. Rawls and re-do mitral valve replacement admitted with pneumonia. ESRD on HD MWF -will attempt HD today -continue regular schedule Hyperkalemia -Renal diet -Modulate with HD Anemia- at goal, CTM Bilateral pneumonia- -Abx per primary team HTN/vol: -will consider midodrine -echo this AM -UF on HD Arm swelling -ordered UE US to r/o clot however suspect likely 2/2 to volume overload Will continue to follow, please contact if ?'s. #[phone]. Anuel Pimentel DO [facility] 09/15/18 10:35 Subjective: Patient feeling a little better. Notes that he has had a lot of issues with UF on HD as his BP continues to drop. Also c/o R hand pain and swelling. Objective: Vital Signs Temp Pulse Resp BP Pulse Ox 36.7 C 89 16 117/65 100 09/14/18 22:27 09/15/18 08:00 09/15/18 08:00 09/15/18 08:00 09/15/18 08:00 Laboratory Results 09/15/18 05:10 09/15/18 05:10 09/14/18 09/15/18 09/16/18 05:59 05:59 05:59 Intake Total 1400 Output Total 0 Balance 1400 PT 37.3 SEC (12.0-15.0) H 09/14/18 19:35 INR 3.82 (0.83-1.16) H 09/14/18 19:35 Physical Exam - Physical Exam General Appearance: alert, no apparent distress EENT: PERRL/EOMI Neck: non-tender, full range of motion, supple Respiratory: decreased breath sounds, crackles Cardiac/Chest: regular rate, rhythm, systolic murmur Abdomen: normal bowel sounds, non-tender, soft Skin: normal color Extremities: normal range of motion, non-tender, pedal edema, swelling (R hand) Neuro/Psych: no motor/sensory deficits, alert, normal mood/affect ICD10 Worksheet Patient Problems: Problems Problem Status Onset Bilateral pneumonia Acute Acute blood loss anemia Acute Chest pain Acute Coagulopathy Acute Dyspnea Acute ESRD on hemodialysis Acute Elevated troponin Acute Fever Acute Headache Acute Hypoxia Acute Pneumonia Acute Postoperative pneumothorax Acute Prosthetic mitral valve stenosis Acute Pulmonary edema Acute S/P mitral valve replacement with metallic valve Acute ~02/07/18 Shortness of breath Acute Tachycardia Acute Anemia Chronic CHF (congestive heart failure) Chronic ESRD (end stage renal disease) Chronic Hypertensive urgency Chronic Severe mitral regurgitation Chronic
--- NOTE | 2018-09-15 09:54 | PDMN ---
Medical Necessity Medical necessity: [facility] [place] Sepsis: 27 yo w/ SOB and cough. Eval reveals sepsis (tachy, tachypneac, temp 39), B/L pneumonia in acute hypoxemic resp fx w/ increased WOB, sat <88% on RA requiring 3-4L O2. Meets [facility] IP criteria for sepsis w/ hemodynamic instability and hypoxemia. IVF and IV antibx started. Admit IP status SDU. Hx CHF, ESRD on HD, mechanical MVR
--- NOTE | 2018-09-15 10:00 | ASMTCMCOM ---
CM Note CM Note Notes: Pt is a 27 yo M presents with bilateral pnemonia. This is pt's second visit in 2019. Pt had 8 inpatient visits in 2018 including multiple ED visits. Pt lives at [facility], Mother recently in July 2018. Linked with [facility] in [place] for dialysis. Pt is current daily smoker. Pt reports he has one friend at [facility] who is supportive and that his counselor there is helpful too. Pt reports that he likes it at [facility] and wants to return. Pt reports his dad lives in [place] and that he misses his mom but says his friend is helping him cope with his loss. Pt denies wanting to speaking with spiritual care at this time. CM submit updates to [facility]. Cm to follow. Plan: Return to [facility] once medically stable. Date Signed: 09/15/2018 09:59 AM Electronically Signed By:ELIDIA Sosa
[2018-09-15] MEDS: CALCIUM ACETATE 667 MG CAP PO SCH ×2 (12:01→12:04)
[2018-09-15] MEDS: SERTRALINE HCL 100 MG TAB PO SCH (12:02)
[2018-09-15] MEDS: SEVELAMER HCL 800 MG TAB PO SCH ×2 (12:02→12:04)
[2018-09-15] MEDS: FAMOTIDINE 20 MG TAB PO SCH (12:04)
--- NOTE | 2018-09-15 12:06 | ECHO ---
[email or web address] [address] [address] Main: [phone] Fax: Transthoracic Echocardiogram Name: FITO ESPINOSA MR#: [id number] Study Date: 09/15/2018 Study Time: 07:30 AM Date of : 1990 Age: 27 year(s) Height: 175.3 cm (69 in.) Weight: 66.68 kg (147 lb.) BSA: 1.81 m2 Gender: Male Examination: Echo Indication: eval ventricular function, mitral valve gradients (h/o porcelain mitral valve) Image Quality: Adequate Contrast: Requested by: Fito Treviño BP: 123 mmHg/71 mmHg Heart Rate: Rhythm: Indication: eval ventricular function, mitral valve gradients (h/o porcelain mitral valve) Procedure Staff [place] Rat: Pam Quigley [facility] Reading Physician: Abdoulaye Neville MD Requesting Provider: Conclusions: No pericardial effusion. Preserved left ventricular systolic function. Prosthetic mitral valve. Left atrial enlargement. Mean mitral valve gradient of 18 mm of mercury. Moderate to severe tricuspid regurgitation with elevated right ventricular systolic pressure at 64 mm of mercury. Measurements: Chambers Valvular Assessment AV/MV Valvular Assessment TV/PV Normal Normal Normal Name Value Range Name Value Range Name Value Range Ao Tiffanie (2D): 2.4 cm (1.4 cm-2.6 AV Vmax: 1.98 m/s (1 m/s-1.7 TR Vmax: 3.85 mm/s ( - ) cm) m/s) TR PGmax: 59 mmHg ( - ) IVSd (2D): 1.0 cm (0.6 cm-1.1 AV maxP mmHg ( - ) syst. PAP: 64 mmHg ( - ) cm) AV meanP mmHg ( - ) PV Vmax: 1.26 m/s (0.6 m/s-0.9 LVDd (2D): 5.4 cm (4.2 cm-5.9 ANTOINE (VTI): 1.9 cm ( - ) m/s) cm) MV E Vmax: 2.51 m/s ( - ) PV PGmax: 6 mmHg ( - ) LVDs (2D): 3.0 cm (2.1 cm-4 MV A Vmax: 1.27 m/s ( - ) cm) MV E/A: 1.98 ( - ) LVPWd (2D): 1.1 cm (0.6 cm-1 cm) MV maxP mmHg ( - ) LVOTd 1.8 cm 1.8 cm mm MV meanP mmHg ( - ) LVEF (BP): 76 % (>=55 %) MV PHT: 0.079 s ( - ) Visual EF: 65 % MVA (Vmax): 1.0 m/s ( - ) RVDd(2D): 3.2 cm (1.9 cm-3.8 MVA (PHT): 2.8 s ( - ) cmmm) Continued Measurements: Chambers Valvular Assessment AV/MV Valvular Assessment TV/PV Name Value Name Value Name Value LADs: 4.7 cm MV DecTime: 243 m/s CVP (est.): 5 mmHg Patient: FITO ESPINOSA Study Date: 09/15/2018 Page 1 of 2 07:30 AM RA Area: 15.4 cm2 MV VTI: 74.20 cm Additional Vessels Name Value Ao Ascendin.0 cm Inferior Vena Cava: 1.8 cm Findings: Left Ventricle: Normal size left ventricle. No LV hypertrophy. Normal global systolic LV function. The ejection fraction is visually estimated to be 65 %. No regional wall motion abnormality. Unable to assess diastolic dysfunction. Right Ventricle: Normal size right ventricle. Normal RV function. Left Atrium: The left atrium is moderately dilated. Right Atrium: The right atrium is normal in size. Mitral Valve: Mean mitral valve gradient 18mmHg. A mechanical mitral valve prosthesis is in place.. The mitral valve gradient is elevated. There appears to be a mobile echodensity near the posterior mitral valve annulus, cannot rule out aberrant chordae or vegetation. Aortic Valve: The aortic valve is tri-leaflet. There is no significant aortic valve regurgitation. No aortic valve stenosis is present. Tricuspid Valve: The tricuspid valve is normal in appearance and function. Moderate to severe tricuspid valve regurgitation. The pulmonary artery pressure is moderately to severely increased. Right ventricular systolic pressure measures 64mmHg. Pulmonic Valve: The pulmonic valve is normal in appearance and function. Mild pulmonic valve regurgitation is noted. Aorta: The aorta is normal. Normal size aortic root measuring 2.4 cm. Normal size ascending aorta measuring 2.0 cm. IVC: The IVC is normal sized. Pericardium: No pericardial effusion. No pleural effusion. (No Signature Object) Patient: FITO ESPINOSA Study Date: 09/15/2018 Page 2 of 2 07:30 AM [id number]
[2018-09-15] MEDS: GABAPENTIN 300 MG CAP PO SCH (12:29)
[2018-09-15] MEDS: HYDROmorphONE/DILAUDID 4 MG TAB PO PRN ×2 (12:30→18:49)
[2018-09-15] MEDS ORDERED: WARFARIN SODIUM 4 MG TAB PO SCH (16:00)
[2018-09-15] MEDS ORDERED: WARFARIN SODIUM 3 MG TAB PO SCH (16:00)
[2018-09-15 18:58] LABS: INR 6.24 (0.83-1.16); PROTIME(PATIENT) 54.2 SEC (12.0-15.0)
[2018-09-15] MEDS ORDERED: traZODone 50 MG TAB PO SCH (21:00)
[2018-09-15] MEDS ORDERED: GABAPENTIN 100 MG CAP PO SCH (21:00)
[2018-09-16] MEDS: SEVELAMER HCL 800 MG TAB PO SCH ×4 (00:55→19:47)
[2018-09-16] MEDS: CALCIUM ACETATE 667 MG CAP PO SCH ×4 (00:55→19:47)
[2018-09-16] MEDS: CEFEPIME HCL 1 GM in NS 50 ML IV SCH (00:56)
[2018-09-16] MEDS: GABAPENTIN 300 MG CAP PO SCH ×2 (00:59→10:05)
[2018-09-16] MEDS: EPOETIN ALFA 2,000 UNIT/ML VIAL IVP SCH (00:59)
[2018-09-16] MEDS: traZODone 50 MG TAB PO SCH ×2 (01:00→19:56)
[2018-09-16] MEDS: HYDROmorphONE/DILAUDID 4 MG TAB PO PRN ×3 (01:00→13:19)
[2018-09-16 05:30] LABS: INR 6.59 (0.83-1.16); PROTIME(PATIENT) 56.5 SEC (12.0-15.0)
[2018-09-16] MEDS: IPRATROPIUM/ALBUTEROL 3 ML DEYVIAL IH SCH ×4 (06:12→23:32)
[2018-09-16] MEDS: HYDROmorphONE/DILAUDID 2 MG TAB PO PRN ×3 (07:10→19:56)
--- NOTE | 2018-09-16 09:56 | SOAPPROG ---
SOAP Progress Note Assessment/Plan: Assessment/Plan: 27 yo M with PMH significant for ESRD on HD MWF at [facility] with Dr. Rawls and re-do mitral valve replacement admitted with pneumonia. ESRD on HD MWF -will plan for HD tomorrow -continue regular schedule -social work consult as patient staying at [facility] and is otherwise homeless Hyperkalemia -Renal diet (currently regular) -Modulate with HD Anemia- at goal, CTM Bilateral pneumonia- -Abx per primary team HTN/vol: -will consider midodrine -echo shows preserved EF with mod/severe TR, needs CT surgery f/u -UF on HD Arm pain -MRI result reviewed -continue gabapentin BMD -resume binder -renal diet as above Will continue to follow, please contact if ?'s. #[phone]. Anuel Pimentel, [facility] 09/16/18 11:26 Subjective: Patient able to UF 3L yesterday. Still having arm pain. SOB improved. Concerned about living situation. Objective: Vital Signs Temp Pulse Resp BP Pulse Ox 37.1 C 118 H 18 130/74 H 97 09/16/18 07:55 09/16/18 07:55 09/16/18 07:55 09/16/18 07:55 09/16/18 07:55 Laboratory Results 09/15/18 05:10 09/15/18 05:10 09/15/18 09/16/18 09/17/18 05:59 05:59 05:59 Intake Total 1400 700 Output Total 0 Balance 1400 700 PT 56.5 SEC (12.0-15.0) H 09/16/18 03:40 INR 6.59 (0.83-1.16) H* 09/16/18 03:40 Physical Exam - Physical Exam General Appearance: alert, no apparent distress EENT: PERRL/EOMI Neck: non-tender, full range of motion, supple Respiratory: respiratory distress, accessory muscle use, decreased breath sounds , crackles Cardiac/Chest: regular rate, rhythm, edema, systolic murmur Abdomen: normal bowel sounds, non-tender, soft Skin: pallor Extremities: normal range of motion, swelling (hands b/l) ICD10 Worksheet Patient Problems: Problems Problem Status Onset Bilateral pneumonia Acute Acute blood loss anemia Acute Chest pain Acute Coagulopathy Acute Dyspnea Acute ESRD on hemodialysis Acute Elevated troponin Acute Fever Acute Headache Acute Hypoxia Acute Pneumonia Acute Postoperative pneumothorax Acute Prosthetic mitral valve stenosis Acute Pulmonary edema Acute S/P mitral valve replacement with metallic valve Acute ~02/07/18 Shortness of breath Acute Tachycardia Acute Anemia Chronic CHF (congestive heart failure) Chronic ESRD (end stage renal disease) Chronic Hypertensive urgency Chronic Severe mitral regurgitation Chronic
[2018-09-16] MEDS: FAMOTIDINE 20 MG TAB PO SCH (10:05)
[2018-09-16] MEDS: SERTRALINE HCL 100 MG TAB PO SCH (10:05)
[2018-09-16] MEDS: CYCLOBENZAPRINE 10 MG TAB PO PRN ×2 (10:06→19:56)
--- NOTE | 2018-09-16 13:11 | HOSPPROG ---
Hospitalist Progress Note Assessment/Plan: DIAGNOSES: # Acute hypoxemic respiratory failure, primarily due to pulmonary edema but also has ronquillo virus infection (had not been getting volume removal at his outpatient dialysis sessions due to lower blood pressures - volume removal by hemodialysis - Cefepime 1g q24h empiric in case any postviral bacterial infection # Sepsis: Tachycardic, febrile - blood pressure is somewhat improved # Bilateral pneumonia: Ronquillo virus found on respiratory pathogen panel - high procalcitonin, suspicion for bacterial infection Will cover with cefepime for now # Acute volume overload due to not removing fluid at his outpatient dialysis unit - has pulmonary edema, edema of arms and trunk - fluid management with HD # bilateral upper extremity appears due to edema # ESRD on HD: - Saturday dialysis - Continue phos binders # Anemia: Due to renal disease. No e/o bleeding - Monitor, EPO per renal # MVP s/p mechanical mitral valve: INR goal 2.5-3.5, currently slightly above - INR at 6 so holding warfarin at this time, recheck daily # HTN: BP on low side - Holding home amlodipine and minoxidil # Chronic pain with chronic opioid use - Continue home dilaudid, flexeril, gabapentin Seen by me today on hospitalist rounds as well as multidisciplinary rounds I reviewed today with Dr. 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 and 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 his arms they test very weak, overall inconsistent with what I see when I am watching him move on his own Dialysis access looks good with thrill Lab data: INR is still elevated at 6 today Echocardiogram done yesterday: Pulmonary hypertension and TR are present; Preserved LV systolic function, has diastolic dysfunction, mitral valve prosthesis functioning well Objective: Vital Signs Temp Pulse Resp BP Pulse Ox 37.3 C 133 H 20 151/90 H 95 09/16/18 11:39 09/16/18 11:39 09/16/18 11:39 09/16/18 11:39 09/16/18 11:39 Laboratory Results 09/15/18 05:10 09/15/18 05:10 09/15/18 09/16/18 09/17/18 06:59 06:59 06:59 Intake Total 1400 700 Output Total 0 Balance 1400 700 PT 56.5 SEC (12.0-15.0) H 09/16/18 03:40 INR 6.59 (0.83-1.16) H* 09/16/18 03:40 - Time Spent With Patient Time Spent with Patient: greater than 35 minutes Time Spent with Patient: Greater than 35 minutes spent on this patients care, greater than 50% of time spent counseling, educating, and coordinating care regarding the above mentioned plan. ICD10 Worksheet Patient Problems: Problems Problem Status Onset Bilateral pneumonia Acute Acute blood loss anemia Acute Chest pain Acute Coagulopathy Acute Dyspnea Acute ESRD on hemodialysis Acute Elevated troponin Acute Fever Acute Headache Acute Hypoxia Acute Pneumonia Acute Postoperative pneumothorax Acute Prosthetic mitral valve stenosis Acute Pulmonary edema Acute S/P mitral valve replacement with metallic valve Acute ~02/07/18 Shortness of breath Acute Tachycardia Acute Anemia Chronic CHF (congestive heart failure) Chronic ESRD (end stage renal disease) Chronic Hypertensive urgency Chronic Severe mitral regurgitation Chronic
--- NOTE | 2018-09-16 15:57 | CPEKG ---
Test Reason : OPEN Blood Pressure : / mmHG Vent. Rate : 082 BPM Atrial Rate : 082 BPM P-R Int : 120 ms QRS Dur : 087 ms QT Int : 390 ms P-R-T Axes : 076 050 067 degrees QTc Int : 456 ms Sinus rhythm Probable left atrial enlargement Anteroseptal infarct, age indeterminate Confirmed by Shant Low ([id number]) on 09/16/2018 3:56:51 PM Referred By: Fito Treviño Confirmed By:Shant Low
--- NOTE | 2018-09-16 16:05 | ASMTCMCOM ---
CM Note CM Note Notes: CM notified pt had concerns about discharge, CM met with pt and he is aware he is able to return to [facility], CM submit update to [place] from [facility]. Pt had no other concerns at this time. Plan: [facility] once medically cleared. Date Signed: 09/16/2018 04:05 PM Electronically Signed By:ELIDIA Sosa
[2018-09-16] MEDS: BENZONATATE 100 MG CAP PO PRN (19:55)
[2018-09-17] MEDS: GABAPENTIN 300 MG CAP PO SCH ×2 (01:19→20:33)
[2018-09-17] MEDS: HYDROmorphONE/DILAUDID 2 MG TAB PO PRN ×7 (01:20→20:32)
[2018-09-17] MEDS: CYCLOBENZAPRINE 10 MG TAB PO PRN ×2 (04:02→12:02)
[2018-09-17] MEDS: IPRATROPIUM/ALBUTEROL 3 ML DEYVIAL IH SCH ×4 (06:17→23:46)
[2018-09-17 06:18] LABS: INR 5.47 (0.83-1.16)
[2018-09-17] MEDS: FAMOTIDINE 20 MG TAB PO SCH (09:10)
[2018-09-17] MEDS: SERTRALINE HCL 100 MG TAB PO SCH (09:10)
[2018-09-17] MEDS: CALCIUM ACETATE 667 MG CAP PO SCH ×3 (09:12→17:21)
[2018-09-17] MEDS: SEVELAMER HCL 800 MG TAB PO SCH ×3 (09:12→17:21)
--- NOTE | 2018-09-17 12:20 | SOAPPROG ---
SOAP Progress Note Assessment/Plan: Assessment: ESRD, TIW HD pneumonia, on cefipime chronic anticoagulation on warfarin, would be careful with celebrex anemia, on EPO Plan: HD yesterday next HD on Saturday continue Cefipime encouraged him to press on with transplant eval, just sent his package back to transplant folks 2 weeks ago 09/17/18 12:16 Subjective: up and around sad about his mother's at [place] [id number] glad to be at [facility], "at least I have a roof over my head." still some cough and SOB no cp nausea vomiting or anorexia spirits good all things considered Objective: Vital Signs Temp Pulse Resp BP Pulse Ox 36.7 C 105 H 14 151/83 H 96 09/17/18 11:38 09/17/18 11:38 09/17/18 11:38 09/17/18 11:38 09/17/18 11:38 Laboratory Results 09/15/18 05:10 09/17/18 04:52 09/16/18 09/17/18 09/18/18 05:59 05:59 05:59 Intake Total 700 2270 Balance 700 2270 PT 49.0 SEC (12.0-15.0) H 09/17/18 04:52 INR 5.47 (0.83-1.16) H* 09/17/18 04:52 Physical Exam - Physical Exam General Appearance: alert, thin Neck: normal inspection Respiratory: rales, rhonchi, wheezing Cardiac/Chest: regular rate, rhythm, edema, systolic murmur, No friction rub Abdomen: normal bowel sounds, non-tender, soft Skin: warm/dry Extremities: swelling Neuro/Psych: alert, normal mood/affect, oriented x 3 ICD10 Worksheet Patient Problems: Problems Problem Status Onset Bilateral pneumonia Acute Acute blood loss anemia Acute Chest pain Acute Coagulopathy Acute Dyspnea Acute ESRD on hemodialysis Acute Elevated troponin Acute Fever Acute Headache Acute Hypoxia Acute Pneumonia Acute Postoperative pneumothorax Acute Prosthetic mitral valve stenosis Acute Pulmonary edema Acute S/P mitral valve replacement with metallic valve Acute ~02/07/18 Shortness of breath Acute Tachycardia Acute Anemia Chronic CHF (congestive heart failure) Chronic ESRD (end stage renal disease) Chronic Hypertensive urgency Chronic Severe mitral regurgitation Chronic
[2018-09-17] MEDS ORDERED: ALBUMIN 25% 50 ML IV PRN (15:00)
[2018-09-17] MEDS: EPOETIN ALFA 2,000 UNIT/ML VIAL IVP SCH (15:11)
--- NOTE | 2018-09-17 15:44 | HOSPPROG ---
Hospitalist Progress Note Assessment/Plan: DIAGNOSES: # Acute hypoxemic respiratory failure, primarily due to pulmonary edema but also has guerrero virus infection (had not been getting volume removal at his outpatient dialysis sessions due to lower blood pressures - volume removal by hemodialysis - Cefepime 1g q24h empiric in case any postviral bacterial infection - respiratory isolation for his viral infection # MVP s/p mechanical mitral valve: - concern raised by cardiothoracic surgery regarding possible high flow gradient across the prosthesis which could be contributing to the patient's presenting symptoms and complications at dialysis - I reviewed with Dr. Low and asked for cardiology consultation today, and they will collaborate with cardiothoracic surgery team in assessing # excessive anticoagulation on Coumadin for prosthetic heart valve - INR at 6 so holding warfarin at this time, recheck daily # Sepsis: Tachycardic, febrile - notably better at this time # Bilateral pneumonia: Guerrero virus found on respiratory pathogen panel - high procalcitonin, suspicion for bacterial infection Will cover with cefepime for now # Acute volume overload due to not removing fluid at his outpatient dialysis unit - has pulmonary edema, edema of arms and trunk - fluid management with HD # bilateral upper extremity appears due to edema -improving with dialysis # ESRD on HD: - Saturday dialysis - Continue phos binders # Anemia: Due to renal disease. No e/o bleeding - Monitor, EPO per renal # HTN: BP on low side - Holding home amlodipine and minoxidil # Chronic pain with chronic opioid use - Continue home dilaudid, flexeril, gabapentin Seen by me today on hospitalist rounds as well as multidisciplinary rounds I reviewed today with Dr. Anuel Banda SUBJECTIVE: Patient today states he is noticing feeling short of breath and lightheaded upon standing, though he has been able to walk about in the hallway without oxygen quite easily so far today and I have observed him during this His arm hand pains are noticeably better but he does have still persisting significant pain throughout his right hand not in any particular distribution. He says he also has numbness there. No fever symptoms Appetite remains fair OBJECTIVE Vitals reviewed: Seen on dialysis today, vitals are all steady so far today, no fever Waste Picker, my review: Sinus Exam: alert oriented more relaxed today Less generalized edema overall particularly in his arms skin warm dry color ok resps not labored lungs clear BSs heart regular abd soft nondistended nontender, bowel sounds present Examination of his right hand shows notably less swelling and tenderness than previous, however he has decreased sensation to touch throughout the right hand but it becomes normal from the wrist and proximal to that Dialysis access looks good with thrill Lab data: INR is still elevated at 5.5 today Creatinine remains at 8, rest of chemistry stable I had a conversation today with Dr. Smooth Rossi from heart surgery team, he stated he was concerned about the flow gradient across the prosthetic mitral valve. If in fact there is a significant obstructive gradient there this could be contributing to the patient's orthostatic symptoms and intolerance of dialyzing to his dry weight. Objective: Vital Signs Temp Pulse Resp BP Pulse Ox 36.7 C 105 H 14 151/83 H 96 09/17/18 11:38 09/17/18 11:38 09/17/18 11:38 09/17/18 11:38 09/17/18 11:38 Laboratory Results 09/15/18 05:10 09/17/18 04:52 09/16/18 09/17/18 09/18/18 06:59 06:59 06:59 Intake Total 700 2270 Balance 700 2270 PT 49.0 SEC (12.0-15.0) H 09/17/18 04:52 INR 5.47 (0.83-1.16) H* 09/17/18 04:52 - Time Spent With Patient Time Spent with Patient: greater than 35 minutes Time Spent with Patient: Greater than 35 minutes spent on this patients care, greater than 50% of time spent counseling, educating, and coordinating care regarding the above mentioned plan. ICD10 Worksheet Patient Problems: Problems Problem Status Onset Bilateral pneumonia Acute Acute blood loss anemia Acute Chest pain Acute Coagulopathy Acute Dyspnea Acute ESRD on hemodialysis Acute Elevated troponin Acute Fever Acute Headache Acute Hypoxia Acute Pneumonia Acute Postoperative pneumothorax Acute Prosthetic mitral valve stenosis Acute Pulmonary edema Acute S/P mitral valve replacement with metallic valve Acute ~02/07/18 Shortness of breath Acute Tachycardia Acute Anemia Chronic CHF (congestive heart failure) Chronic ESRD (end stage renal disease) Chronic Hypertensive urgency Chronic Severe mitral regurgitation Chronic
--- NOTE | 2018-09-17 16:00 | ASMTCMCOM ---
CM Note CM Note Notes: Darwin, from [facility] stopped by and stated patient will be eligible for OT/PT if he needs it at discharge. Patient has both Medicaid and Medicare and will have the rehab days. Therapies have not been ordered for the patient at this time. CM will follow. Date Signed: 09/17/2018 04:00 PM Electronically Signed By:Erin Rodriguez LCSW
[2018-09-17] MEDS: CEFEPIME HCL 1 GM in NS 50 ML IV SCH (19:31)
[2018-09-17] MEDS: traZODone 50 MG TAB PO SCH (20:33)
[2018-09-17] MEDS ORDERED: GABAPENTIN 300 MG CAP PO SCH (21:00)
[2018-09-18] MEDS: HYDROmorphONE/DILAUDID 2 MG TAB PO PRN ×6 (00:50→21:32)
[2018-09-18 04:36] LABS: INR 4.2 (0.83-1.16); PROTIME(PATIENT) 40.1 SEC (12.0-15.0)
[2018-09-18] MEDS: IPRATROPIUM/ALBUTEROL 3 ML DEYVIAL IH SCH ×4 (05:24→22:55)
[2018-09-18] MEDS: CALCIUM ACETATE 667 MG CAP PO SCH ×3 (08:30→17:23)
[2018-09-18] MEDS: SEVELAMER HCL 800 MG TAB PO SCH ×3 (08:30→17:23)
[2018-09-18] MEDS: FAMOTIDINE 20 MG TAB PO SCH (08:30)
[2018-09-18] MEDS: SERTRALINE HCL 100 MG TAB PO SCH (08:31)
[2018-09-18] MEDS: CYCLOBENZAPRINE 10 MG TAB PO PRN (11:50)
--- NOTE | 2018-09-18 11:51 | ECHO ---
[email or web address] [address] [address] Main: [phone] Fax: Transthoracic Echocardiogram Name: FITO ESPINOSA MR#: [id number] Study Date: 09/18/2018 Study Time: 11:02 AM Date of : 1990 Age: 27 year(s) Height: 175.3 cm (69 in.) Weight: 66.23 kg (146 lb.) BSA: 1.81 m2 Gender: Male Examination: Limited Echo Indication: Mechanical Mitral Valve, Follow up on Mechanical MV Gradients Image Quality: Contrast: Requested by: Fito Treviño BP: 166 mmHg/109 mmHg Heart Rate: 95 bpm Rhythm: Tachycardia Indication: Mechanical Mitral Valve, Follow up on Mechanical MV Gradients Procedure Staff Cap Parts Cutter: Andrea Melchor RDCS Reading Physician: Shant Low MD Requesting Provider: Conclusions: Normal global systolic LV function. The MV mean PG is 15 mmHg, The gradient was performed from the 4C and 2C views, . Moderate tricuspid regurgitation is present. The pulmonary artery pressure is moderately increased. There continues to be elevation to the mean gradient of the mitral valve. Better visualization of the valve with SANJAY imaging is recommended. Measurements: Chambers Valvular Assessment AV/MV Valvular Assessment TV/PV Normal Normal Normal Name Value Range Name Value Range Name Value Range AV Vmax: 1.52 m/s (1 m/s-1.7 TR Vmax: 3.53 mm/s ( - ) m/s) TR PGmax: 50 mmHg ( - ) AV maxP mmHg ( - ) syst. PAP: 55 mmHg ( - ) MV meanP mmHg ( - ) MV PHT: 0.069 s ( - ) MVA (PHT): 3.2 s ( - ) Continued Measurements: Valvular Assessment AV/MV Valvular Assessment TV/PV Name Value Name Value MV DecTime: 236 m/s CVP (est.): 5 mmHg MV VTI: 52.30 cm Findings: Left Ventricle: Normal global systolic LV function. Patient: FITO ESPINOSA Study Date: 09/18/2018 Page 1 of 2 11:02 AM Mitral Valve: The MV mean PG is 15 mmHg, The gradient was performed from the 4C and 2C views, . Tricuspid Valve: Moderate tricuspid regurgitation is present. The pulmonary artery pressure is moderately increased. (No Signature Object) Patient: FITO ESPINOSA Study Date: 09/18/2018 Page 2 of 2 11:02 AM [id number]
--- NOTE | 2018-09-18 15:04 | SOAPPROG ---
SOAP Progress Note Assessment/Plan: Assessment: ESRD, TIW HD pneumonia, on cefipime chronic anticoagulation on warfarin, would be careful with celebrex anemia, on EPO Plan: HD Saturday next HD on Saturday continue Cefipime encouraged him to press on with transplant eval, just sent his package back to transplant folks 2 weeks ago 09/17/18 12:16 09/18/18 15:01 Subjective: up to chair feeling better SOB improved, no nausea vomiting or anorexia spirits good, would like to go home if able Objective: Vital Signs Temp Pulse Resp BP Pulse Ox 36.9 C 92 20 151/102 H 91 L 09/18/18 11:46 09/18/18 11:46 09/18/18 11:46 09/18/18 11:46 09/18/18 11:46 Laboratory Results 09/15/18 05:10 09/18/18 03:44 09/17/18 09/18/18 09/19/18 05:59 05:59 05:59 Intake Total 2270 1225 Balance 2270 1225 PT 40.1 SEC (12.0-15.0) H 09/18/18 03:44 INR 4.20 (0.83-1.16) H 09/18/18 03:44 Physical Exam - Physical Exam General Appearance: alert Neck: normal inspection Respiratory: No rhonchi, No wheezing Cardiac/Chest: regular rate, rhythm, edema, systolic murmur, other (click), No friction rub Abdomen: normal bowel sounds, non-tender, soft Skin: warm/dry Extremities: swelling Neuro/Psych: alert, normal mood/affect, oriented x 3 ICD10 Worksheet Patient Problems: Problems Problem Status Onset Bilateral pneumonia Acute Acute blood loss anemia Acute Chest pain Acute Coagulopathy Acute Dyspnea Acute ESRD on hemodialysis Acute Elevated troponin Acute Fever Acute Headache Acute Hypoxia Acute Pneumonia Acute Postoperative pneumothorax Acute Prosthetic mitral valve stenosis Acute Pulmonary edema Acute S/P mitral valve replacement with metallic valve Acute ~02/07/18 Shortness of breath Acute Tachycardia Acute Anemia Chronic CHF (congestive heart failure) Chronic ESRD (end stage renal disease) Chronic Hypertensive urgency Chronic Severe mitral regurgitation Chronic
[2018-09-18] MEDS ORDERED: LORazepam 2 MG/ML INJ IVP PRN (17:12)
[2018-09-18] MEDS: LORazepam 1 MG TAB PO PRN ×2 (17:23→21:33)
--- NOTE | 2018-09-18 17:35 | PDCONSULT ---
Currency Machine Operator Note: Repeat assessment of the mean gradient of the mitral valve (mechanical) continues to show pathologic elevation. Plan for the patient to have SANJAY to better visualize the valve. Would consider fluoroscopic views of the valve as an option should SANJAY not allow clear visualization of leaflet mobility. Ongoing discussion with CT surgery about options for care/therapy.
--- NOTE | 2018-09-18 20:16 | HOSPPROG ---
Hospitalist Progress Note Assessment/Plan: DIAGNOSES: # Acute hypoxemic respiratory failure, primarily due to pulmonary edema but also has ronquillo virus infection # MVP s/p mechanical mitral valve: - concern raised by cardiothoracic surgery regarding possible high flow gradient across the prosthesis which could be contributing to the patient's presenting symptoms and complications at dialysis # Arrested Grieving process causing marked anxiety, depression, guilt, etc # excessive anticoagulation on Coumadin for prosthetic heart valve # Sepsis: Tachycardic, febrile, appears resolved # Bilateral pneumonia: Ronquillo virus found on respiratory pathogen panel - high procalcitonin, suspicion for bacterial infection # Acute volume overload due to not removing fluid at his outpatient dialysis unit - pulmonary edema, edema of arms and trunk # bilateral upper extremity appears due to edema - resolved w effective dialysis # ESRD on HD - Saturday dialysis # Anemia: Due to renal disease. on EPO # HTN: BP on low side - Holding home amlodipine and minoxidil # Chronic pain with chronic prescribed opioid use - Continued on home doses dilaudid, flexeril; gabapentin dose increased I reviewed valve issues w Dr Low and Dr Rossi today. MV gradient high on echo. Plan for SANJAY tomorrow for more detailed assessment. If truly has significant flow resistance there, this could be cause of his difficulty getting adequate dialysis. Management of this would be difficult. A third surgery would be very difficult and pt would not likely accept it, may not even be very helpful. Could consider changing dialysis regimen - ?peritoneal or daily nocturnal dialysis to avoid such significant fluid shifts; may need to leave him with higher fluid volumes and dialyse more for K/acid base/urea etc, though this may leave him with pulm edema or other issues. ? if he could be candidate for renal transplant?? PLANS: * SANJAY in am * review w cardiol/CVsurg after that * I have recommended we have spiritual care team see him to help w grieving - his is initially reluctant but after some further discussion he agrees * will add prn ativan, will review potential other med changes w psychiatry, continue zoloft for now * follow lytes closely * continue empiric abx total 7 days * continue off anticoag for now, daily INR, watch for bleeding SUBJECTIVE: Pt quite upset and anxious today I had very long conversation with him. He is very depressed and anxious, beyond his usual, obviously very pained - as we explored this he is quite stuck in very beginning stages of grief over recent of his mother who was really the one person really supportive of him. He is also stuck in greiving over inability to see his children (complex legal/geographic issues), and his own sense of loss of self related to his heart and kidney issues, states "my whole family hates me". Cries a lot during our discussion, sounds like there is more to the story. Physically feeling ok, does still have pain in his hands little changed, but really with the hand pain I believe he is experiencing a focal point for his grief and anxiety. 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 Smooth Rossi from heart surgery team, he stated he was concerned about the flow gradient across the prosthetic mitral valve. If in fact there is a significant obstructive gradient there this could be contributing to the patient's orthostatic symptoms and intolerance of dialyzing to his dry weight. Objective: Vital Signs Temp Pulse Resp BP Pulse Ox 36.9 C 86 20 145/86 H 89 L 09/18/18 16:03 09/18/18 16:03 09/18/18 16:03 09/18/18 16:03 09/18/18 16:03 Laboratory Results 09/15/18 05:10 09/18/18 03:44 09/17/18 09/18/18 09/19/18 06:59 06:59 06:59 Intake Total 2270 1225 540 Balance 2270 1225 540 PT 40.1 SEC (12.0-15.0) H 09/18/18 03:44 INR 4.20 (0.83-1.16) H 09/18/18 03:44 - Time Spent With Patient Time Spent with Patient: greater than 35 minutes Time Spent with Patient: Greater than 35 minutes spent on this patients care, greater than 50% of time spent counseling, educating, and coordinating care regarding the above mentioned plan. ICD10 Worksheet Patient Problems: Problems Problem Status Onset Bilateral pneumonia Acute Acute blood loss anemia Acute Chest pain Acute Coagulopathy Acute Dyspnea Acute ESRD on hemodialysis Acute Elevated troponin Acute Fever Acute Headache Acute Hypoxia Acute Pneumonia Acute Postoperative pneumothorax Acute Prosthetic mitral valve stenosis Acute Pulmonary edema Acute S/P mitral valve replacement with metallic valve Acute ~02/07/18 Shortness of breath Acute Tachycardia Acute Anemia Chronic CHF (congestive heart failure) Chronic ESRD (end stage renal disease) Chronic Hypertensive urgency Chronic Severe mitral regurgitation Chronic
[2018-09-18] MEDS: traZODone 50 MG TAB PO SCH (21:32)
[2018-09-18] MEDS: GABAPENTIN 300 MG CAP PO SCH (21:32)
[2018-09-19] MEDS: CYCLOBENZAPRINE 10 MG TAB PO PRN ×3 (00:40→22:45)
[2018-09-19] MEDS: HYDROmorphONE/DILAUDID 2 MG TAB PO PRN ×4 (00:40→12:26)
[2018-09-19] MEDS: IPRATROPIUM/ALBUTEROL 3 ML DEYVIAL IH SCH ×4 (05:45→21:04)
[2018-09-19] MEDS ORDERED: NS 1,000 ML IV ONE (06:00)
[2018-09-19 07:45] LABS: PLATELET COUNT 160 10^3/uL (150-400)
[2018-09-19 07:57] LABS: INR 2.55 (0.83-1.16); PROTIME(PATIENT) 27.4 SEC (12.0-15.0)
[2018-09-19] MEDS: LORazepam 1 MG TAB PO PRN ×2 (09:10→22:32)
[2018-09-19] MEDS: SERTRALINE HCL 100 MG TAB PO SCH (09:11)
[2018-09-19] MEDS: FAMOTIDINE 20 MG TAB PO SCH (09:11)
[2018-09-19] MEDS ORDERED: PROPOFOL 200 MG/20 ML VIAL ONE (09:38)
[2018-09-19] MEDS ORDERED: LIDOCAINE 1% 5 ML SDV ONE (09:38)
[2018-09-19] MEDS ORDERED: MIDAZOLAM 2 MG/2 ML VIAL ONE (09:39)
--- NOTE | 2018-09-19 09:52 | PDANEPAE ---
ANE History of Present Illness 27 y/o male with complicated medical history for SANJAY. Pneumonia, sepsis, renal failure, htn, anxiety and valvular heart disease. ANE Past Medical History - Cardiovascular History Hx Hypertension: Yes Hx Arrhythmias: No Hx Chest Pain: No Hx Coronary Artery / Peripheral Vascular Disease: No Hx CHF / Valvular Disease: Yes Hx Palpitations: No Cardiovascular History Comment: htn. mitral valve prolapse. chf - Pulmonary History Hx COPD: No Hx Asthma/Reactive Airway Disease: No Hx Recent Upper Respiratory Infection: No Hx Oxygen in Use at Home: No Hx Sleep Apnea: No - Neurologic History Hx Cerebrovascular Accident: No Hx Seizures: No Hx Dementia: No Neurologic History Comment: migraines - Endocrine History Hx Diabetes: No - Renal History Hx Renal Disorders: Yes Renal History Comment: esrd. dialysis m-w-f @ [facility] - Liver History Hx Hepatic Disorders: No - Neurological & Psychiatric Hx Hx Neurological and Psychiatric Disorders: No - Cancer History Hx Cancer: No - Congenital Disorder History Hx Congenital Disorders: No - GI History Hx Gastrointestinal Disorders: No - Other Health History Other Health History: missing teeth from previous surgery. fistula left wrist area - Chronic Pain History Chronic Pain: Yes (back pain, head) - Surgical History Prior Surgeries: 07/10/17 multiple dental extractions with [facility]. gallbladder removal. fistula placement ANE Review of Systems Review of systems is: negative Review of Systems: ANE Patient History - Allergies Allergies/Adverse Reactions: No Known Allergies Allergy (Unverified 08/20/18 15:47) - Home Medications Home Medications: Gabapentin [Neurontin 100 MG (*)] 100 mg PO HS 01/12/18 [Last Taken 09/13/18 20: 00] Albuterol [Proventil Inhaler HFA (*)] 2 puffs IH Q4HRS 09/14/18 [Last Taken 10/28 16:00] Albuterol [Proventil Inhaler HFA (*)] 2 puffs IH Q4HRS PRN 09/14/18 [Last Taken Unknown] Benzonatate [Tessalon Pearles (RX)] 200 mg PO BID 09/14/18 [Last Taken 09/14/18 16:00] Calcium Acetate [Phoslo (*)] 2,001 mg PO TIDMEAL 09/14/18 [Last Taken 09/14/18 12:00] Calcium Carbonate [Tums 500MG (*)] 500 mg PO Q6HRS PRN 09/14/18 [Last Taken Unknown] Cyclobenzaprine [Flexeril 10 MG (*)] 10 mg PO Q8HRS PRN 09/14/18 [Last Taken 10/28 15:00] Epoetin Kirit [Epogen 2000 UNIT/ML] 7,600 unit SQ Q21D 09/14/18 [Last Taken Unknown] HYDROmorphone HCL [Dilaudid 2 mg (*)] 2 mg PO Q3HRS PRN 09/14/18 [Last Taken 10/28 18:11] Metoprolol Tartrate [Lopressor 100 mg (*)] 100 mg PO BID 09/14/18 [Last Taken 08:00] Minoxidil [Minoxidil 10 mg (*)] 10 mg PO BID 09/14/18 [Last Taken 09/14/18 08:00 ] Nitroglycerin [Nitrostat 0.4 mg (*)] 0.4 mg SL Q5M PRN 09/14/18 [Last Taken Unknown] Ondansetron Odt [Zofran Odt] 4 mg PO Q6HRS PRN 09/14/18 [Last Taken Unknown] Sertraline HCl [Zoloft 100mg (*)] 200 mg PO DAILY 09/14/18 [Last Taken 09/14/18 08:00] Sevelamer Carbonate [Renvela] 2,400 mg PO TIDMEAL 09/14/18 [Last Taken 09/14/18 12:00] Warfarin Sodium [Coumadin 3MG (*)] 3 mg PO DAILY16 09/14/18 [Last Taken 17:00] Warfarin Sodium [Coumadin 4MG (*)] 4 mg PO DAILY16 09/14/18 [Last Taken 17:00] guaiFENesin [Mucinex 600 MG (*)] 600 mg PO Q12HRS PRN 09/14/18 [Last Taken 09/13 17:06] traZODone [traZODONE 50MG (*)] 50 mg PO HS 09/14/18 [Last Taken 09/13/18 20:00] diphenhydrAMINE [Benadryl Injection] 50 mg IV Q21D 09/15/18 [Last Taken Unknown] - Smoking Hx Smoking Status: Current every day smoker - Alcohol Use Alcohol Use: None - Family Anes Hx Family Hx Anesthesia Complications: None ANE Labs/Vital Signs - Labs Result Diagrams: 09/19/18 07:27 09/19/18 07:27 - Vital Signs Blood Pressure: 156/107 Heart Rate: 77 Respiratory Rate: 20 O2 Sat (%): 91 Height: 175.26 cm Weight: 74.8 kg ANE Physical Exam - Airway Neck exam: FROM Mallampati Score: Class 1 Mouth exam: normal dental/mouth exam - Pulmonary Pulmonary: no respiratory distress - Cardiovascular Cardiovascular: regular rate and rhythym ANE Anesthesia Plan Anesthesia Plan: MAC
[2018-09-19] MEDS ORDERED: NALOXONE HCL 0.4 MG/ML INJ IVP PRN (10:34)
--- NOTE | 2018-09-19 10:34 | POSTANESTH ---
Post Anesthetic Evaluation Cardiovascular Status: Normal, Stable Respiratory Status: Normal, Stable Level of Consciousness/Mental Status: Mildly Sleepy, Arousable Pain Control: Adequate, Prn Tx Ordered Nausea/Vomiting Control: Adequate, Prn Tx Ordered Complications Possibly Related to Anesthesia: None Noted
[2018-09-19] MEDS: CALCIUM ACETATE 667 MG CAP PO SCH ×4 (10:56→22:37)
[2018-09-19] MEDS: SEVELAMER HCL 800 MG TAB PO SCH ×4 (10:56→22:37)
--- NOTE | 2018-09-19 10:57 | PDCARPN ---
Cardiology Progress Note Chief Complaint: Patient is feeling fair today, but continues to appreciate elevated heart rates with minimal activity and dyspnea Assessment/Plan: Assessment: Patient is a 27 y/o male well known to [facility] with history of bioMVR which failed, and placement of mechanical MVR with noted elevation to mean gradients through the valve, ESRD with HD three times per week, and HTN, who presented to [facility] with pneumonia (ronquillo virus infection). While in house, given past history, and concerns about mitral valve from the past, a repeat surface echo was performed. This echo unfortunately revealed moderate to severe elevation to the mean gradients through the mitral valve (previous mean gradient was 8 mm Hg, but this admission's surface echo, on two occasions, with multiple measurements, was noting elevations to 16-18 mm Hg). Patient also reporting that limited activity was resulting in more dramatic dyspnea - symptoms that were noted at the time of the bioMVR failure. Patient is feeling better overall with respect to the pneumonia that was initially noted. Ongoing issues with depression were voiced today. Plan: (1) SANJAY today to better visualize the patient anatomy - specifically to better visualize the mitral valve AND to reacquire gradients through the valve (2) Further recommendations after this procedure has been completed. Subjective: Patient is feeling fair. No active cardiovascular complaints. Dyspnea is an ongoing complaints, and worsens with activity of any sort. Objective: Vital Signs (8 Hrs) Temp Pulse Resp BP Pulse Ox 09/19/18 09:52 77 20 156/107 H 91 L 09/19/18 07:34 36.9 C 77 20 156/107 H 91 L 09/19/18 04:00 36.8 C 82 20 134/94 H 92 Intake/Output (24 Hrs) 09/18/18 09/19/18 09/20/18 05:59 05:59 05:59 Intake Total 1225 1040 Balance 1225 1040 Intake: Oral (ml) 1225 1040 Other: Weight 74.8 kg Output Comment Urinal Pt on dialysis Result Diagrams: 09/19/18 07:27 09/19/18 07:27 Telemetry: normal sinus rhythm Echocardiogram: Normal LVEF with mechanical mitral valve stenosis noted (by measurements obtained) - Physical Exam Constitutional: WDWN, healthy appearing Eyes: PERRL, EOMI Ears, Nose, Mouth, Throat: moist mucous membranes Cardiovascular: regular rate and rhythm, no rubs, systolic murmur, pulses symmetric bilat, No jugular vein distention Peripheral Pulses: 2+: dorsalis-pedis (R), dorsalis-pedis (L) Respiratory: clear to auscultate bilat, no crackles, no wheezes Gastrointestinal: normoactive bowel sounds Skin: no rashes, no edema Musculoskeletal: no muscular tenderness, no joint effusions Neurologic: AAOx3, CN II-XII grossly intact Psychiatric: cooperative, interactive, following commands ICD10 Worksheet Patient Problems: Problems Problem Status Onset Bilateral pneumonia Acute Acute blood loss anemia Acute Chest pain Acute Coagulopathy Acute Dyspnea Acute ESRD on hemodialysis Acute Elevated troponin Acute Fever Acute Headache Acute Hypoxia Acute Pneumonia Acute Postoperative pneumothorax Acute Prosthetic mitral valve stenosis Acute Pulmonary edema Acute S/P mitral valve replacement with metallic valve Acute ~02/07/18 Shortness of breath Acute Tachycardia Acute Anemia Chronic CHF (congestive heart failure) Chronic ESRD (end stage renal disease) Chronic Hypertensive urgency Chronic Severe mitral regurgitation Chronic
--- NOTE | 2018-09-19 11:23 | PDCARTEE ---
CAR SANJAY CAR SANJAY: After consent was obtained for both anesthesia and for SANJAY, the patient was positioned on the left lateral side. SANJAY probe was placed without any difficulty and limited views to reassess the mitral valve pathology were obtained. Grossly normal left ventricular systolic function was noted Mechanical mitral valve with clear motion of both leaflets 3D assessment of the mitral valve with clearly opening posterior leaflet, but possible impairment of opening (fully) to the anterior leaflet Gradient assessment with the open (posterior leaflet) having mean gradient of 7 mm Hg (within normal limits for valve and size) and 16-17 mm Hg with the anterior impaired opening valve Patient did well with this procedure. No complications were noted Recommendations for the patient to have fluoroscopy of the valve to determine if better visualization of the opening can be noted. Under fluoroscopy, both leaflets clearly open, but there is some reduction in anterior leaflet opening noted.
--- NOTE | 2018-09-19 13:35 | SOAPPROG ---
SOAP Progress Note Assessment/Plan: Assessment/Plan: 27 yo M with PMH significant for ESRD on HD MWF at [facility] with Dr. Rawls and re-do mitral valve replacement admitted with pneumonia. ESRD on HD MWF -HD today -continue regular schedule -social work consult as patient staying at [facility] and is otherwise homeless Hyperkalemia -modulate on HD todya -monitor on telemetry Bilateral pneumonia- -Abx per primary team HTN/vol: -consider midodrine pending cardiology recommendations -SANJAY today -echo shows preserved EF with mod/severe TR -UF on HD as tolerated Arm pain -MRI result reviewed -continue gabapentin BMD -continue binder -renal diet Anemia -Hb drop to 8's -give EPO on HD -monitor CBC Will continue to follow if still admitted, please contact if ?'s. #[phone]. Anuel Pimentel, [facility] 09/19/18 13:36 Subjective: Getting SANJAY today as well per cardiology. Still some issues pulling fluid. Objective: Vital Signs Temp Pulse Resp BP Pulse Ox 36.6 C 83 25 H 156/107 H 96 09/19/18 11:45 09/19/18 11:45 09/19/18 11:45 09/19/18 11:45 09/19/18 11:45 Laboratory Results 09/19/18 07:27 09/19/18 07:27 09/18/18 09/19/18 09/20/18 05:59 05:59 05:59 Intake Total 1225 1040 Balance 1225 1040 PT 27.4 SEC (12.0-15.0) H 09/19/18 07:27 INR 2.55 (0.83-1.16) H 09/19/18 07:27 Physical Exam - Physical Exam General Appearance: alert, no apparent distress EENT: PERRL/EOMI Neck: non-tender, full range of motion, supple Respiratory: decreased breath sounds, crackles Cardiac/Chest: regular rate, rhythm, edema, systolic murmur Abdomen: normal bowel sounds, non-tender, organomegaly Skin: pallor Extremities: normal range of motion, swelling Neuro/Psych: no motor/sensory deficits, alert, normal mood/affect ICD10 Worksheet Patient Problems: Problems Problem Status Onset Bilateral pneumonia Acute Acute blood loss anemia Acute Chest pain Acute Coagulopathy Acute Dyspnea Acute ESRD on hemodialysis Acute Elevated troponin Acute Fever Acute Headache Acute Hypoxia Acute Pneumonia Acute Postoperative pneumothorax Acute Prosthetic mitral valve stenosis Acute Pulmonary edema Acute S/P mitral valve replacement with metallic valve Acute ~02/07/18 Shortness of breath Acute Tachycardia Acute Anemia Chronic CHF (congestive heart failure) Chronic ESRD (end stage renal disease) Chronic Hypertensive urgency Chronic Severe mitral regurgitation Chronic
[2018-09-19] MEDS: EPOETIN ALFA 2,000 UNIT/ML VIAL IVP SCH (14:42)
[2018-09-19] MEDS ORDERED: ALPRAZolam 1 MG TAB PO ONE ×2 (14:45→23:11)
--- NOTE | 2018-09-19 15:14 | ASMTCMCOM ---
CM Note CM Note Notes: Patient continues to have shortness of breath. Patient has acute hypoxiemic respiratory failure due to pulmonary edema but also ronquillo virus infection. He can return to [facility] when medically stable. Patient does have rehab days if he needs them. No therapies have been ordered for now. D/C plan : [facility]. CM will follow. Date Signed: 09/19/2018 03:13 PM Electronically Signed By:Erin Rodriguez LCSW
[2018-09-19] MEDS ORDERED: WARFARIN SODIUM 4 MG TAB PO ONE (17:56)
--- NOTE | 2018-09-19 17:58 | HOSPPROG ---
Hospitalist Progress Note Assessment/Plan: DIAGNOSES: # Acute hypoxemic respiratory failure, primarily due to pulmonary edema but also has ronquillo virus infection - pulmonary edema is due to ongoing hypotension during dialysis sessions as outpatient leading to poor fluid removal for past few weeks # MVP s/p mechanical mitral valve (his 2nd prosthesis): - mechanical issue with 1 leaflet not opening properly the collecting significant increased pressure gradient across the prosthesis - suspicion that this is leading to his difficulty with hypotension on dialysis as well as his pulmonary edema, exertional dyspnea, and orthostatic symptoms # Arrested Grieving process causing marked anxiety, depression, guilt, etc - recent of mother who is his main support system, his own personal losses with his medical issues, unable to visit with his children for complex legal reasons, etc - this is causing him severe anxiety and depression # excessive anticoagulation on Coumadin for prosthetic heart valve - resolved after several days off Coumadin, can resume Coumadin now # ?Sepsis: Doubt was actually sepsis, seems more likely due to his respiratory issues as above and a viral infection # Bilateral pneumonia? Verses pulmonary edema: Ronquillo virus found on respiratory pathogen panel - high procalcitonin, suspicion for possible bacterial infection but nonspecific in current setting # bilateral upper extremity pain appears due to edema - resolved w effective dialysis # ESRD on HD - Saturday dialysis here as per his usual schedule # Anemia: Due to renal disease. on EPO # HTN: - amlodipine and minoxidil held here due to the mitral valve issues with hemostasis and dialysis troubles as above # Chronic pain with chronic prescribed opioid use - Continued on home doses dilaudid, flexeril; gabapentin dose increased at present I reviewed today's SANJAY with Dr. Rossi. At this point will need CV surgery, Cardiology, and Nephrology to talk together about how to approach his complex issues. 1 fix would be another surgery which has significant disadvantages and high risk of complications. Another would be to consider some type of change in how as dialysis is being done. Question if there are any other medication changes that might be helpful PLANS: * Await recommendations from CV surgery Cardiology and Nephrology * I have spiritual care team to see him to help w grieving - his is initially reluctant but after some further discussion he agrees * will add prn ativan, will review potential other med changes w psychiatry, continue zoloft for now * follow lytes closely * Can stop empiric antibiotics at this time for possible pneumonia * Resume Coumadin at lower dose of 3 mg daily, follow daily INR SUBJECTIVE: Pt quite upset and anxious today I had very long conversation with him. He is very depressed and anxious, beyond his usual, obviously very pained - as we explored this he is quite stuck in very beginning stages of grief over recent of his mother who was really the one person really supportive of him. He is also stuck in greiving over inability to see his children (complex legal/geographic issues), and his own sense of loss of self related to his heart and kidney issues, states "my whole family hates me". Cries a lot during our discussion, sounds like there is more to the story. Physically feeling ok, does still have pain in his hands little changed, but really with the hand pain I believe he is experiencing a focal point for his grief and anxiety. OBJECTIVE Vitals reviewed: vitals stable no fever [employer] Liaison, my review: Sinus Exam: alert oriented more relaxed today Less generalized edema overall skin warm dry color ok resps not labored lungs clear BSs heart regular abd soft nondistended nontender, bowel sounds present Limbs: his hands now are nonedematous, no discoloration or other visible/ palpable abnormality, seem quite a bit less tender objectively on exam Dialysis access looks good with thrill Lab data: INR 2.5 today K a bit high this am, creat down to 6 I had a conversation today with Dr. Smooth Rossi from heart surgery team, he stated he was concerned about the flow gradient across the prosthetic mitral valve. If in fact there is a significant obstructive gradient there this could be contributing to the patient's orthostatic symptoms and intolerance of dialyzing to his dry weight. Objective: Vital Signs Temp Pulse Resp BP Pulse Ox 36.8 C 97 20 142/79 H 91 L 09/19/18 16:00 09/19/18 16:00 09/19/18 16:00 09/19/18 16:00 09/19/18 16:00 Laboratory Results 09/19/18 07:27 09/19/18 07:27 09/18/18 09/19/18 09/20/18 06:59 06:59 06:59 Intake Total 1225 1040 100 Balance 1225 1040 100 PT 27.4 SEC (12.0-15.0) H 09/19/18 07:27 INR 2.55 (0.83-1.16) H 09/19/18 07:27 - Time Spent With Patient Time Spent with Patient: greater than 35 minutes Time Spent with Patient: Greater than 35 minutes spent on this patients care, greater than 50% of time spent counseling, educating, and coordinating care regarding the above mentioned plan. ICD10 Worksheet Patient Problems: Problems Problem Status Onset Bilateral pneumonia Acute Acute blood loss anemia Acute Chest pain Acute Coagulopathy Acute Dyspnea Acute ESRD on hemodialysis Acute Elevated troponin Acute Fever Acute Headache Acute Hypoxia Acute Pneumonia Acute Postoperative pneumothorax Acute Prosthetic mitral valve stenosis Acute Pulmonary edema Acute S/P mitral valve replacement with metallic valve Acute ~02/07/18 Shortness of breath Acute Tachycardia Acute Anemia Chronic CHF (congestive heart failure) Chronic ESRD (end stage renal disease) Chronic Hypertensive urgency Chronic Severe mitral regurgitation Chronic
[2018-09-19] MEDS: CEFEPIME HCL 1 GM in NS 50 ML IV SCH (18:03)
[2018-09-19] MEDS: GABAPENTIN 300 MG CAP PO SCH (22:32)
[2018-09-19] MEDS: traZODone 50 MG TAB PO SCH (22:32)
[2018-09-20] MEDS: IPRATROPIUM/ALBUTEROL 3 ML DEYVIAL IH SCH ×2 (04:22→11:22)
[2018-09-20 04:37] LABS: INR 2.19 (0.83-1.16); PROTIME(PATIENT) 24.4 SEC (12.0-15.0)
--- NOTE | 2018-09-20 09:39 | PDCARPN ---
Cardiology Progress Note Assessment/Plan: Assessment/plan: 27-year-old male with end-stage renal disease on dialysis. This is result of solitary kidney. He has mitral valve disease status post bioprosthetic mitral valve that required redo with a #27 bileaflet mechanical mitral valve in 2018. Other history includes systemic hypertension with more recent problems with hypotension on dialysis; chronic anemia; and complex social situation with recent loss of his mother. He does reside at [facility]. He was admitted through the ER on September 14 with dyspnea, paroxysmal nocturnal dyspnea, cough, fever and hypoxia. Initially this was felt to be ronquillo virus pneumonia with an overlay of diastolic heart failure. Transthoracic and trans esophageal echocardiograms have demonstrated elevated trans MVR gradients. He also has mod to severe tricuspid regurgitation. There is no clear thrombus on the valve. His INR has been therapeutic or supratherapeutic. And, in general, his INR is managed at [facility]. Blood cultures have been negative. 1. Valvular heart disease: Status post redo mitral valve replacement now with mechanical mitral valve. I have reviewed his TTE, SANJAY, and valve fluoroscopy with Dr. Farr. I do not appreciate thrombus on the mechanical valve or immobility of either valve leaflet. If he had significant leaflet immobility he should have more MR. He does have two different mitral inflow waveforms; the higher gradients represent flow through the smaller of the valve orifices. He has been ill with a virus, was volume overloaded on admission, and also is off his beta-blockers which may be contributing to elevated gradients. Would carefully restart beta-jhon therapy. INR goal 2.5-3.5. Add low-dose aspirin per valvular heart disease guidelines. Doubt endocarditis. Blood cultures negative. 2. End-stage renal disease on dialysis. He has been tolerating dialysis here. Attempt to add back low-dose beta-blockers to improve his transmitral gradients. Volume status is managed with dialysis. Per the chart, he has not had significant fluid removal as an outpatient which may be contributing to elevated gradients across his prosthetic mitral valve. May need more frequent HD or change in type of HD? 3. Possible pneumonia: He has ronquillo virus on respiratory panel. Antibiotics have been stopped. It is likely that his dyspnea is hypoxia is partly related to heart failure partly related to viral infection as he did have a fever. 4. History of hypertension: He is normotensive here. Attempt low-dose beta- blockers as above. 5. Anemia: This is chronic. On epogen. 6. Grief reaction: Unfortunately he lost his mother a couple of months ago. He is residing at [facility]. He appears fairly stable from a cardiovascular standpoint. If he tolerates initiation of beta-jhon therapy would be acceptable to discharge either later today or tomorrow with close outpatient cardiology follow-up. 09/20/18 10:44 Subjective: He reports feeling quite a bit better over the last couple of days. He is walking around the unit with no dyspnea. Cough is much improved. Pleuritic chest pain that he was admitted with has resolved he continues to have some mild sternotomy pain that has been present since his 2nd open heart surgery. No lower extremity edema Reviewed/Discussed With: other (Dr. Farr) Objective: Vital Signs (8 Hrs) Temp Pulse Resp BP Pulse Ox 09/20/18 08:00 36.8 C 82 14 139/89 H 92 09/20/18 04:00 36.5 C 80 17 137/76 H 97 Intake/Output (24 Hrs) 09/19/18 09/20/18 09/21/18 05:59 05:59 05:59 Intake Total 1040 600 Balance 1040 600 Intake: Oral (ml) 1040 600 Other: Weight 74.8 kg No acute distress JVP less than 10. Regular rate and rhythm with crisp mechanical S 1. No murmur. No gallop or rub. Lungs clear to auscultation bilaterally without wheeze rhonchi rales No lower extremity edema Result Diagrams: 09/19/18 07:27 09/20/18 03:55 Telemetry: Sinus rhythm and sinus tachycardia Echocardiogram: I have personally reviewed his transthoracic echo, transesophageal ECHO, and fluoroscopy of mitral valve this admission. ICD10 Worksheet Patient Problems: Problems Problem Status Onset Bilateral pneumonia Acute Acute blood loss anemia Acute Coagulopathy Acute S/P mitral valve replacement with metallic valve Acute ~02/07/18 Prosthetic mitral valve stenosis Acute Dyspnea Acute ESRD on hemodialysis Acute Elevated troponin Acute Headache Acute Pneumonia Acute Pulmonary edema Acute Hypoxia Acute Tachycardia Acute Fever Acute Chest pain Acute Shortness of breath Acute Severe mitral regurgitation Chronic Postoperative pneumothorax Acute ESRD (end stage renal disease) Chronic Anemia Chronic CHF (congestive heart failure) Chronic Hypertensive urgency Chronic
[2018-09-20] MEDS: SERTRALINE HCL 100 MG TAB PO SCH (09:44)
[2018-09-20] MEDS: FAMOTIDINE 20 MG TAB PO SCH (09:44)
[2018-09-20] MEDS: HYDROmorphONE/DILAUDID 2 MG TAB PO PRN (09:44)
[2018-09-20] MEDS: SEVELAMER HCL 800 MG TAB PO SCH ×2 (09:44→12:30)
[2018-09-20] MEDS: CALCIUM ACETATE 667 MG CAP PO SCH ×2 (09:44→12:17)
[2018-09-20] MEDS: LORazepam 1 MG TAB PO PRN (09:45)
[2018-09-20] MEDS ORDERED: METOPROLOL TARTRATE 25 MG TAB PO SCH (10:15)
[2018-09-20] MEDS ORDERED: ASPIRIN 81 MG CHEWABLE TAB PO SCH (10:15)
--- NOTE | 2018-09-20 11:43 | PDCONSULT ---
Clothing Cutter Note: Cardiology note reviewed. Patient back on BB. Will titrate up at unit as outpatient. May be discharged from a renal perspective to . Please contact if ?s. #[phone]. DO Ner[facility]
[2018-09-20 12:16] VITALS: BP 153/89
--- NOTE | 2018-09-20 12:20 | PDIAF ---
- Diagnosis Diagnosis: pulmonary edema, viral illness, valvular heart dz, renal failure Code Status: Full Code - Medication Management Discharge Medications: electronically signed and located in the Home Medication List. - Orders Services needed: Registered Nurse, Certified Senior Net Developer, Master Materials Mgmt Tech , Physical Therapy, Occupational Therapy Isolation Type: Droplet Isolation Diet Recommendation: potassium restricted Diet Texture: Regular Texture Diet - Labs/Radiology PT/INR Date: 09/22/18 (every MWF til dose stable) Other Lab Name, Date and Time: INR goal 2.5-3.5 - Follow Up Care Current Providers and Referrals: Patient,NotPresent [Unknown] - As per Instructions
--- NOTE | 2018-09-20 13:18 | GDS ---
[f rep st] DISCHARGE SUMMARY DIAGNOSES: 1. Valvular heart disease, status post redo mitral valve replacement, now with mechanical mitral sherman ve evaluation with echocardiogram and valve fluoroscopy. No thrombus appreciated on mitral valve or immobility of either valve leaflet, on warfarin. INR goal 2.5 to 3.5. 2. End-stage renal disease, on dialysis Saturday, Saturday, Saturday. 3. Viral pneumonitis secondary to Coronavirus. Will be on droplet precautions. 4. Hypertensive. Has been normotensive, and will add low-dose beta blockers. 5. Chronic anemia on Epogen. 6. Grief reaction, currently on high dose of Zoloft. Patient would like to wean off this. We will provide some low-dose Xanax after discharge. 7. Chronic pain with chronic opioid dependency. CONSULTATIONS: Nephrology, Cardiology, Cardiothoracic Surgery. PROCEDURES DONE: 1. Echocardiogram, transthoracic echocardiogram, and fluoroscopic valve evaluation. 2. Cervical spine MRI. Grossly negative noncontrast MRI of the spine. 3. Ultrasound Dopplex right arm, no DVT. HOSPITAL COURSE: The patient is a 27-year-old with a history of end-stage renal disease due to compl ications from solitary kidney as well as mitral valve disease status post valve replacements x2, who comes in with increasing respiratory failure with shortness of breath and cough. On admission, he hayes d bilateral alveolar interstitial markings and a positive viral panel for coronavirus. Further evalu ation with an echocardiogram was concerning for possible problems with his mitral valve replacement, and Cardiology and Cardiothoracic Surgery were both consulted. Over the course of his hospitalizatio n, his valve was assessed, and it was determined that it was likely functioning relatively well, and that the initial assessment may have been abnormal due to hemodynamics present at the time. However, at this time, Cardiology will add on low-dose beta jhon and follow up with him as an outpatient. Patient had some hypotension on admission. His antihypertensives were all discontinued, and he will be started on low-dose beta jhon at the time of discharge. His end-stage renal disease was follo wed by Nephrology throughout his stay, and he was started on hemodialysis. He was over-anticoagulate d at the time of admission, and 2 doses were held, and at the time of discharge, his INR is low at 2. 1. He initially was on 7 mg daily with a supratherapeutic INR. He will be discharged on 5 mg daily to with frequent INR draws to get him in the level of 2.5 to 3.5. At the time of discharge, he is re latively stable. His hemodynamics have improved. He is not coughing, and his oxygenation is good. He has been normotensive throughout his stay. CONDITION ON DISCHARGE: VITAL SIGNS: Blood pressure is 153/89, respirations 88. He will need to ge t his blood pressure medications advanced as an outpatient. FOLLOWUP INSTRUCTIONS: Patient will be discharged to [facility]. He will resume followup dialysi s Saturday, Saturday, Saturday. Follow up with [facility] for further evaluation of his blood pressu re and valve disease. Case was discussed with Dr. Laney Johnson and Dr. Anuel Pimentel prior to discharge. /[id number]/MODL
[2018-09-20] MEDS ORDERED: ALPRAZolam 0.5 MG TAB PO ONE (13:30)
--- NOTE | 2018-09-20 13:40 | ASMTDCNOTE ---
Case Management Discharge Discharge Order Complete? Answers: Yes Patient to Obtain Answers: Other Notes: [facility] Medications Transportation Arranged Answers: Other Notes: [facility] w/c arranged by [facility] or Transport will Pick (Date 09/20/2018 02:00 PM & Time) Faxed Final Orders Answers: Yes Notes: to [facility] Agency/Facility Transfer Answers: Yes Notes: to [facility] Report Printed & Faxed to Receiving Agency Discharge Comments Notes: 09/20/2018 Case Management Note Faxed final orders to [facility]. Darwin kearney arranged transport with koffi niño. RN called report. Case Management d/c poc: return to [facility] where pt resides. Date Signed: 09/20/2018 01:39 PM Electronically Signed By:Lindy Ibarra RN
--- NOTE | 2018-09-20 13:45 | ASDISCHSUM ---
Discharge Information Plan Status:SNF Medically Cleared to Leave:09/19/2018 Discharge Date:09/19/2018 CM D/C Disposition:Care Home Facility ADT D/C Disposition:Care Home Facility Projected Discharge Date:09/18/2018 11:00 AM Transportation at D/C:Wheelchair Van Discharge Delay Reason: Follow-Up Date:09/18/2018 11:00 AM Discharge Slot: Final Diagnosis: Placement Information Referral Type:*Assisted/SNF Referral ID:[id number] Provider Name:[facility]izeth Trujillo/[facility] Address 1:[address] Address 2: Fax Number: [facility]:[place] Selection Factors: State:[place] Patient Contact Information Contact Name:JENNYNYDIASOFY Relationship:Mother [address] Work Phone: [facility]:[place] Alternate Phone: State/Zip Code:[place] [address] Email: Financial Information Financial Class:Medicare Primary Plan Desc:MEDICARE INPATIENT Primary Plan Number:[id number] Secondary Plan Desc:[place] Secondary Plan Number:[id number] Assessment Information LACE LACE Length of stay for Answers: 4-6 days current admission Acuity / Level of Answers: Yes Care: Did the patient have an inpatient admission? Comorbidities - select Answers: Congestive heart failure all that apply Moderate or severe liver or renal disease Opioid dependence / Chronic pain # of Emergency department Answers: 3-4 visits in the last 6 months Score: 20 Date Signed: 09/20/2018 01:44 PM Electronically Signed By:Lindy Ibarra RN [facility] CM Progress Note CM Note CM Note Notes: Pt is a 27 yo M presents with bilateral pnemonia. This is pt's second visit in 2019. Pt had 8 inpatient visits in 2018 including multiple ED visits. Pt lives at [facility], Mother recently in July 2018. Linked with [facility] in [place] for dialysis. Pt is current daily smoker. Pt reports he has one friend at [facility] who is supportive and that his counselor there is helpful too. Pt reports that he likes it at [facility] and wants to return. Pt reports his dad lives in [place] and that he misses his mom but says his friend is helping him cope with his loss. Pt denies wanting to speaking with spiritual care at this time. CM submit updates to [facility]. Cm to follow. Plan: Return to [facility] once medically stable. Date Signed: 09/15/2018 09:59 AM Electronically Signed By:ELIDIA Sosa [facility] Progress Note CM Note CM Note Notes: CM notified pt had concerns about discharge, CM met with pt and he is aware he is able to return to [facility], CM submit update to Darwin from [facility]. Pt had no other concerns at this time. Plan: [facility] once medically cleared. Date Signed: 09/16/2018 04:05 PM Electronically Signed By:ELIDIA Sosa [facility] CM Progress Note CM Note LOLITA Note Notes: Darwin, from [facility] stopped by and stated patient will be eligible for OT/PT if he needs it at discharge. Patient has both Medicaid and Medicare and will have the rehab days. Therapies have not been ordered for the patient at this time. CM will follow. Date Signed: 09/17/2018 04:00 PM Electronically Signed By:Erin Rodriguez LCSW [facility] CM Progress Note CM Note CM Note Notes: Patient continues to have shortness of breath. Patient has acute hypoxiemic respiratory failure due to pulmonary edema but also ronquillo virus infection. He can return to [facility] when medically stable. Patient does have rehab days if he needs them. No therapies have been ordered for now. D/C plan : [facility]. CM will follow. Date Signed: 09/19/2018 03:13 PM Electronically Signed By:Erin Rodriguez LCSW Case Management Discharge Plan Note Case Management Discharge Discharge Order Complete? Answers: Yes Patient to Obtain Answers: Other Notes: [facility] Medications Transportation Arranged Answers: Other Notes: lizeth niño w/c arranged by lizeth judd or Transport will Pick (Date 09/20/2018 02:00 PM & Time) Faxed Final Orders Answers: Yes Notes: to [facility] Trujillo Agency/Facility Transfer Answers: Yes Notes: to [facility] Trujillo Report Printed & Faxed to Receiving Agency Discharge Comments Notes: 09/20/2018 Case Management Note Faxed final orders to [facility] Trujillo. Darwin kearney arranged transport with lizeth niño. RN called report. Case Management d/c poc: return to [facility] where pt resides. Date Signed: 09/20/2018 01:39 PM Electronically Signed By:Lindy Ibarra RN Intervention Information Intervention Type:*IM-Signed Date of Service:09/20/2018 01:43 PM Patient Type:Inpatient Staff Member:SHAVON Ibarra, Lindy Hours: Discipline: Severity: Comment:
[2018-09-20] MEDS ORDERED: ALPRAZolam 1 MG TAB PO ONE (14:00)
[2018-09-20] MEDS ORDERED: WARFARIN SODIUM 3 MG TAB PO SCH (16:00)
--- NOTE | 2018-09-24 13:52 | PQFORM ---
PHYSICIAN QUERY FORM Needs Your Response This query form is being sent to you to assure this patient record is coded properly. Please respond to the question below: [employer] DISPATCHER QUESTION: Dear Dr. Santa, In reviewing this patient medical record, it is noted patient held the diagnosis of 'Sepsis.' Patient presented to ER with Fever, cough, heart rate of 124, respiratory rate of 22 with a note stating a concern for sepsis. Noted in the H&P, Dr. Treviño notes patient had "Sepsis: Tachycardic, febrile." In the Hospitalist Progress notes dated 09/15-09/18 patient held the diagnosis of ' sepsis.' Dr. Agee later noted in the 09/19 Hospitalist Progress notes "Sepsis: Doubt was actually sepsis, seems more likely due to respiratory issues." In the 09/15 Medical Necessity note patent was admitted to IP with 'sepsis.' After study, should the diagnosis of "Sepsis" be included in the Discharge Summary? Yes No __x___Other more appropriate diagnosis (please specify) SIRS Unable to determine Thank you, Amna Collins, [facility]/Coding Dept. [phone] INSTRUCTIONS FOR RESPONSE: Answer question by clicking on the "Edit Document" button. Move cursor to area below the stars. When complete, hit "Save." Click on the "Sign" button, then click "Sign" again. Type in your PIN and hit "Enter." MTDD
== END 2018-09-20 14:17 | DRG 193 ==
LOC: EDUNIT# → F2N 22:04 → F2W 09-15 13:54
PROVIDERS: ADMIT Internal Medicine; ATTEND Internal Medicine
PROC: 5A1D70Z Performance of Urinary Filtration, Intermittent, Less than 6 Hours Per Day (ICD-10-PCS; 2018-09-15)
PROC: B245ZZ4 Ultrasonography of Left Heart, Transesophageal (ICD-10-PCS; principal; 2018-09-19)
DX: J12.89 Other viral pneumonia (principal); I13.2 Hypertensive heart and chronic kidney disease with heart failure and with stage 5 chronic kidney disease, or end stage renal disease; N18.6 End stage renal disease; F11.20 Opioid dependence, uncomplicated; Q60.0 Renal agenesis, unilateral; R65.10 Systemic inflammatory response syndrome (SIRS) of non-infectious origin without acute organ dysfunction; I50.9 Heart failure, unspecified; B97.29 Other coronavirus as the cause of diseases classified elsewhere; E86.9 Volume depletion, unspecified; D63.1 Anemia in chronic kidney disease; F43.29 Adjustment disorder with other symptoms; G89.29 Other chronic pain; G47.00 Insomnia, unspecified; Z95.2 Presence of prosthetic heart valve; Z72.0 Tobacco use; Z79.01 Long term (current) use of anticoagulants
CPT/HCPCS: 96365; J0692; J0885; J1644; J2060; J2250; J2704

== ENCOUNTER 2018-09-24 03:43 | Observation (INO) | payer OTHER, MEDICAID ==
[2018-09-24] MEDS ORDERED: methylPREDNISolone SOD SUCC 125 MG/2 ML VIAL IVP ONE (03:54)
[2018-09-24] MEDS ORDERED: IPRATROPIUM/ALBUTEROL 3 ML DEYVIAL IH ONE (03:56)
--- NOTE | 2018-09-24 03:56 | EDPHY ---
H & P Time Seen by Provider: 09/24/18 03:53 HPI/ROS: HPI CHIEF COMPLAINT: Worsening cough, shortness of breath, chest wall pain. 82% room air sat upon arrival. HISTORY OF PRESENT ILLNESS: This is a 27-year-old male with multiple medical problems, including end-stage renal disease, valvular heart disease, recent admission for viral pneumonitis, presents emergency room by EMS from [facility] with worsening cough and shortness of breath as well as bilateral anterior chest wall pain from coughing. Patient states coughing got worse over the last 48 hr. Reports he was diagnosed with pneumonia recently and was recently discharged from the hospital. He states he had increasing sputum production with green-yellow. Also reports fever at [facility]. Patient's main complaint is worsening cough and chest wall pain. Past Medical History: End-stage renal disease on hemodialysis Saturday, solitary kidney, valvular heart disease with mitral valve replacement, recent admission for viral pneumonitis, chronic pain Past Surgical History: Mechanical valve replacement mitral valve. Left arm AV fistula Social History: Resides at [facility]. Does not smoke denies drugs or alcohol. Family History: Noncontributory ROS REVIEW OF SYSTEMS: 10 Systems were reviewed and negative with the exception of the elements mentioned in the history of present illness. Exam Constitutional triage nursing summary reviewed, vital signs reviewed, awake/ alert. Coughing upon arrival. Vital Signs room air sat 82%. Hypertensive. Eyes normal conjunctivae and sclera, EOMI, PERRLA. HENT normal inspection, atraumatic, moist mucus membranes, no epistaxis, neck supple/ no meningismus, no raccoon eyes. Respiratory rhonchorous breath sounds throughout slight wheezing. Bronchitic sounding cough on exam. Cardiovascular chest wall tender palpation throughout the anterior chest wall. Tachycardic, regular rhythm, no murmur, no edema, distal pulses normal. Gastrointestinal soft, non-tender, no rebound, no guarding, normal bowel sounds, no distension, no pulsatile mass. Genitourinary no CVA tenderness. Musculoskeletal no midline vertebral tenderness, full range of motion, no calf swelling, no tenderness of extremities, no meningismus, good pulses, neurovascularly intact. Skin pink, warm, & dry, no rash, skin atraumatic. Neurologic awake, alert and oriented x 3, AAOx3, moves all 4 extremities equally, motor intact, sensory intact, CN II-XII intact, normal cerebellar, normal vision, normal speech. Psychiatric normal mood/affect. Heme/Lymph/Immune no lymphadenopathy. Differential Diagnosis: Includes but is not limited to in a particular order worsening pneumonia, viral pneumonitis, CHF, pulmonary edema, bronchitis, reactive airway disease, musculoskeletal chest wall pain. Medical Decision Making: Plan for this patient: He arrives to the emergency room coughing with wheezing with rhonchorous breath sounds throughout, anterior chest wall pain on exam. IV will be established, IV Solu-Medrol be given, DuoNeb breathing treatment, IV morphine for pain control, chest x-ray, basic blood work, lactic acid blood cultures and re-evaluate. Re-evaluation: EKG interpretation by me on record in [employer] system. Impression time of EKG 3:57 a.m., sinus tach 110 without any signs of acute ischemia. Chest x-ray reviewed worsening bilateral infiltrates. Image interpreted by myself. 0419: Spoke with the hospitalist service Dr. Villarreal, Who agrees to admit. Plan for admission for hypoxia. Patient 82% room air sat. Chest x-ray appears worse today to me. Patient is due for dialysis today. His potassium is okay. Patient is doing better at 4:22 a.m. After DuoNeb breathing treatment, IV morphine and steroids. Plan for hospital admission for hypoxia. At time of admission he is stable and improving. Noted to be hypertensive. Source: Patient, Family, EMS - Medical/Surgical History Hx Asthma: No Hx Chronic Respiratory Disease: No Hx Diabetes: No Hx Cardiac Disease: Yes Hx Renal Disease: Yes Hx Cirrhosis: No Hx Alcoholism: No Hx HIV/AIDS: No Hx Splenectomy or Spleen Trauma: No Other PMH: PMHx: congenital lack of R kidney, failing L kidney dialysis, HTN, dental caries, chf, mitral valve prolapse w/replacement 07/2017, PNA. PSHx: chani, thoracentisis, av fistula in left distal forarm - Social History Smoking Status: Current every day smoker Constitutional: Initial Vital Signs Temperature (C) 37 C 09/24/18 03:56 Heart Rate 105 H 09/24/18 03:56 Respiratory Rate 20 09/24/18 03:56 Blood Pressure 179/101 H 09/24/18 03:56 O2 Sat (%) 82 L 09/24/18 03:56 O2 Delivery Mode Room Air O2 (L/minute) 2 Allergies/Adverse Reactions: No Known Allergies Allergy (Unverified 09/24/18 03:55) Home Medications: Medication Instructions Recorded Gabapentin [Neurontin 100 MG (*)] 100 mg PO HS 01/12/18 Albuterol [Proventil Inhaler HFA 2 puffs IH Q4HRS 09/14/18 (*)] Albuterol [Proventil Inhaler HFA 2 puffs IH Q4HRS PRN 09/14/18 (*)] Benzonatate [Tessalon Pearles] 200 mg PO BID 09/14/18 Calcium Acetate [Phoslo (*)] 2,001 mg PO TIDMEAL 09/14/18 Calcium Carbonate [Tums 500MG (*)] 500 mg PO Q6HRS PRN 09/14/18 Cyclobenzaprine [Flexeril 10 MG 10 mg PO Q8HRS PRN 09/14/18 (*)] HYDROmorphone HCL [Dilaudid 2 mg 2 mg PO Q3HRS PRN 09/14/18 (*)] Nitroglycerin [Nitrostat 0.4 mg 0.4 mg SL Q5M PRN 09/14/18 (*)] Ondansetron Odt [Zofran Odt 4 mg 4 mg PO Q6HRS PRN 09/14/18 (*)] Sertraline HCl [Zoloft 100mg (*)] 200 mg PO DAILY 09/14/18 Sevelamer Carbonate [Renvela] 2,400 mg PO TIDMEAL 09/14/18 guaiFENesin [Mucinex 600 MG (*)] 600 mg PO Q12HRS PRN 09/14/18 traZODone [traZODONE 50MG (*)] 50 mg PO HS 09/14/18 ALPRAZolam [Alprazolam] 0.5 mg PO BID PRN #1 tablet 09/20/18 Acetaminophen [Tylenol 325mg (*)] 650 mg PO Q4HRS PRN tab 09/20/18 Aspirin [Aspirin 81mg (*)] 81 mg PO DAILY tab.chew 09/20/18 Ipratropium/Albuterol [Duoneb (*)] 3 ml IH Q6HRS deyvial 09/20/18 Metoprolol Tartrate [Lopressor 25 12.5 mg PO BID tab 09/20/18 mg (*)] Warfarin Sodium [Coumadin 3MG (*)] 6 mg PO DAILY@17 09/24/18 Medical Decision Making - Data Points Laboratory Results: Laboratory Results 09/24/18 03:50 09/24/18 03:50 Medications Given: Discontinued Medications Albuterol/Ipratropium (Duoneb) 3 ml IH EDNOW ONE Stop: 09/24/18 03:57 Last Admin: 09/24/18 04:06 Dose: 3 ml Hydromorphone HCl (Dilaudid) 4 mg PO Q4HRS PRN PRN Reason: Pain, Severe Able to Take PO Stop: 10/04/18 05:07 Last Admin: 09/24/18 05:17 Dose: 4 mg Hydromorphone HCl (Dilaudid) 2 mg PO Q3HRS PRN PRN Reason: Pain, Severe Stop: 10/04/18 10:09 Last Admin: 09/24/18 10:22 Dose: 2 mg Methylprednisolone Sodium Succinate (Solu-Medrol) 125 mg IVP EDNOW ONE Stop: 09/24/18 03:55 Last Admin: 09/24/18 04:02 Dose: 125 mg Morphine Sulfate (Morphine) 4 mg IVP EDNOW ONE Stop: 09/24/18 03:54 Last Admin: 09/24/18 04:06 Dose: 4 mg Point of Care Test Results: Chemistry 09/24/18 03:55 POC Troponin I 0.00 ng/mL ng/mL (0.00-0.08) Departure - Departure Disposition: [facility] Acute Clinical Impression: Hypoxia Acute bronchitis Qualifiers: Bronchitis organism: unspecified organism Qualified Code(s): J20.9 - Acute bronchitis, unspecified Condition: Good
[2018-09-24 04:00] LABS: PLATELET COUNT 225 10^3/uL (150-400)
[2018-09-24 04:09] LABS: INR 3.15 (0.83-1.16); PROTIME(PATIENT) 32.2 SEC (12.0-15.0)
[2018-09-24] MEDS ORDERED: ONDANSETRON 4 MG/2 ML VIAL IVP PRN (04:24)
[2018-09-24] MEDS ORDERED: ACETAMINOPHEN 325 MG TAB PO PRN (04:24)
[2018-09-24] MEDS ORDERED: ALBUTEROL 3 ML DEYVIAL IH PRN (04:24)
[2018-09-24] MEDS ORDERED: ONDANSETRON DISINTEGRATING 4 MG TAB PO PRN (04:24)
--- NOTE | 2018-09-24 04:55 | PDGENHP ---
History and Physical - Chief Complaint Cough, SOB - History of Present Illness 27 yo M w/ hx of ESRD, HTN, and mechanical mitral valve presents with cough and shortness of breath. The patient was admitted from 09/14-09/20 for evaluation of similar symptoms. During that visit he was diagnosed with viral pneumonitis. His mitral valve was evaluated at length and determined to be functioning appropriately. He tells me he left probably earlier than he should have. He felt ok the first day but has felt progressively short of breath with increased coughing over the last 2 days. His last HD session was on Saturday, as scheduled ( MWF). He denies fever, chills. He is also complaining of musculoskeletal pain in the upper sternum, which he thinks is related to frequent coughing. In the ED his evaluation is notable for hypoxia (82% on RA) and CXR demonstrating diffuse, bilateral alveolar infiltrates. This is similar in appearance to 09/14 CXR but likely somewhat worsened. Last set of vitals prior to discharge listed 92% o RA. Of note, he recently had a decreased in his BP meds due to low pressures during HD. He is now only on low dose metoprolol. Case discussed with ED physician Dr. Harman; records reviewed and summarized above. History Information - Allergies/Home Medication List Allergies/Adverse Reactions: No Known Allergies Allergy (Unverified 09/24/18 03:55) Home Medications: Gabapentin [Neurontin 100 MG (*)] 100 mg PO HS 01/12/18 [Last Taken 09/13/18 20: 00] Albuterol [Proventil Inhaler HFA (*)] 2 puffs IH Q4HRS 09/14/18 [Last Taken 10/28 16:00] Albuterol [Proventil Inhaler HFA (*)] 2 puffs IH Q4HRS PRN 09/14/18 [Last Taken Unknown] Benzonatate [Tessalon Pearles] 200 mg PO BID 09/14/18 [Last Taken 09/14/18 16:00 ] Calcium Acetate [Phoslo (*)] 2,001 mg PO TIDMEAL 09/14/18 [Last Taken 09/14/18 12:00] Calcium Carbonate [Tums 500MG (*)] 500 mg PO Q6HRS PRN 09/14/18 [Last Taken Unknown] Cyclobenzaprine [Flexeril 10 MG (*)] 10 mg PO Q8HRS PRN 09/14/18 [Last Taken 10/28 15:00] Epoetin Kirit [Epogen 2000 UNIT/ML] 7,600 unit SQ Q21D 09/14/18 [Last Taken Unknown] HYDROmorphone HCL [Dilaudid 2 mg (*)] 2 mg PO Q3HRS PRN 09/14/18 [Last Taken 10/28 18:11] Nitroglycerin [Nitrostat 0.4 mg (*)] 0.4 mg SL Q5M PRN 09/14/18 [Last Taken Unknown] Ondansetron Odt [Zofran Odt 4 mg (*)] 4 mg PO Q6HRS PRN 09/14/18 [Last Taken Unknown] Sertraline HCl [Zoloft 100mg (*)] 200 mg PO DAILY 09/14/18 [Last Taken 09/14/18 08:00] Sevelamer Carbonate [Renvela] 2,400 mg PO TIDMEAL 09/14/18 [Last Taken 09/14/18 12:00] guaiFENesin [Mucinex 600 MG (*)] 600 mg PO Q12HRS PRN 09/14/18 [Last Taken 09/13 17:06] traZODone [traZODONE 50MG (*)] 50 mg PO HS 09/14/18 [Last Taken 09/13/18 20:00] diphenhydrAMINE [Benadryl Injection] 50 mg IV Q21D 09/15/18 [Last Taken Unknown] I have personally reviewed and updated: family history, medical history - Past Medical History CHF, ESRD Additional medical history: ESRD secondary to solitary kidney on HD [facility] (Dr Rawls), CHF, history of mitral valve prolapse s/p initial bioprosthetic MV complicated by MS now s/p mechanical MVR, anemia of chronic kidney disease, chronic pain on opiates, insomnia - Surgical History Additional surgical history: LUE AVF creation, bioprosthetic MVR, failed MV annuloplasty (01/2018), mechanical MV replacement (01/2018), cholecystectomy - Family History Positive for: non-pertinent Additional family history: No family history of end-stage renal disease or valvular heart disease - Social History Smoking Status: Current every day smoker Additional social history: Lives at [facility]. Mother just recently 07/2018. No other family in area. Originally from [place]. Review of Systems Review of Systems: ROS: 10pt was reviewed & negative except for what was stated in HPI & below Physical Exam Physical Exam: Temp Pulse Resp BP Pulse Ox 37 C 105 H 20 179/101 H 82 L 09/24/18 03:56 09/24/18 03:56 09/24/18 03:56 09/24/18 03:56 09/24/18 03:56 Constitutional: appears nourished, uncomfortable Eyes: PERRL, EOMI Ears, Nose, Mouth, Throat: moist mucous membranes, no oral mucosal ulcers Cardiovascular: regular rate and rhythym, systolic murmur Respiratory: no respiratory distress, inspiratory crackles, rhonchi Genitourinary: no bladder fullness, no bladder tenderness Skin: other (LUE fistula w/ palpable thrill) Musculoskeletal: full muscle strength, no muscle tenderness Neurologic: AAOx3, CN II-XII Intact Psychiatric: interacting appropriately, not anxious Lab Data & Imaging Review 09/24/18 03:50 09/24/18 03:50 WBC 9.32 10^3/uL (3.80-9.50) 09/24/18 03:50 RBC 2.51 10^6/uL (4.40-6.38) L 09/24/18 03:50 Hgb 7.7 g/dL (13.7-17.5) L 09/24/18 03:50 Hct 23.8 % (40.0-51.0) L 09/24/18 03:50 MCV 94.8 fL (81.5-99.8) 09/24/18 03:50 MCH 30.7 pg (27.9-34.1) 09/24/18 03:50 MCHC 32.4 g/dL (32.4-36.7) 09/24/18 03:50 RDW 15.7 % (11.5-15.2) H 09/24/18 03:50 Plt Count 225 10^3/uL (150-400) 09/24/18 03:50 MPV 9.4 fL (8.7-11.7) 09/24/18 03:50 Neut % (Auto) 77.6 % (39.3-74.2) H 09/24/18 03:50 Lymph % (Auto) 14.8 % (15.0-45.0) L 09/24/18 03:50 Harlan % (Auto) 4.6 % (4.5-13.0) 09/24/18 03:50 Eos % (Auto) 1.4 % (0.6-7.6) 09/24/18 03:50 Baso % (Auto) 0.4 % (0.3-1.7) 09/24/18 03:50 Nucleat RBC Rel Count 0.0 % (0.0-0.2) 09/24/18 03:50 Absolute Neuts (auto) 7.23 10^3/uL (1.70-6.50) H 09/24/18 03:50 Absolute Lymphs (auto) 1.38 10^3/uL (1.00-3.00) 09/24/18 03:50 Absolute Monos (auto) 0.43 10^3/uL (0.30-0.80) 09/24/18 03:50 Absolute Eos (auto) 0.13 10^3/uL (0.03-0.40) 09/24/18 03:50 Absolute Basos (auto) 0.04 10^3/uL (0.02-0.10) 09/24/18 03:50 Absolute Nucleated RBC 0.00 10^3/uL (0-0.01) 09/24/18 03:50 Immature Gran % 1.2 % (0.0-1.1) H 09/24/18 03:50 Immature Gran # 0.11 10^3/uL (0.00-0.10) H 09/24/18 03:50 PT 32.2 SEC (12.0-15.0) H 09/24/18 03:50 INR 3.15 (0.83-1.16) H 09/24/18 03:50 APTT 71.9 SEC (23.0-38.0) H 09/24/18 03:50 VBG Lactic Acid 0.7 mmol/L (0.7-2.1) 09/24/18 04:10 Sodium 137 mEq/L (135-145) 09/24/18 03:50 Potassium 5.1 mEq/L (3.5-5.2) 09/24/18 03:50 Chloride 100 mEq/L (97-110) 09/24/18 03:50 Carbon Dioxide 27 mEq/l (22-31) 09/24/18 03:50 Anion Gap 10 mEq/L (6-14) 09/24/18 03:50 Estimated GFR 7 09/24/18 03:50 Glucose 93 mg/dL (70-100) 09/24/18 03:50 Calcium 8.4 mg/dL (8.5-10.4) L 09/24/18 03:50 POC Troponin I 0.00 ng/mL (0.00-0.08) 09/24/18 03:55 NT-Pro-B Natriuret Pep 47850 pg/mL (0-125) H 09/24/18 03:50 Visualized and Interpreted Chest x-ray results: Yes Chest X-Ray results: other (Diffuse, bilateral alveolar infiltrates) Visualized and Interpreted EKG results: Yes EKG Interpretation: Positive for: other (Sinus tach) Assessment & Plan Assessment: 27 yo M w/ hx of ESRD, HTN, and mechanical mitral valve presents with cough and shortness of breath. Plan: 1. AHRF - 82% on RA on presentation to the ED. He was discharged 3 days prior after evaluation for similar symptoms. CXR (personally reviewed/interpreted) continues to demonstrated diffuse, bilateral alveolar infiltrates. This was considered viral pneumonitis during most recent admission; unclear what role mitral valve disease is playing in his presentation. He has been compliant with HD MWF. - O2 PRN to maintain O2 sats>89% - Albuterol PRN - Continue HD per MWF schedule 2. Mitral valve prolapse - S/p bioprosthetic valve initially and now s/p mechanical valve replacement on 01/27. He was evaluated by cariology during most recent admission with TTE, SANJAY, and valve fluoroscopy. It was determined his valve function was adequate at that time. - Continue warfarin INR goal 2.5-3.5 - Monitor daily INR - Daily weights, cardiac diet, monitor I/Os - Consider cardiology consult if not improving with supportive care 3. ESRD - On HD MWF. Patient uncertain but thinks he may be a few kg above his dry weight. - Continue HD MWF - Continue sevelamer 4. Anemia - Chronic, related to ESRD, on Epo. - Monitor CBC Diet - Cardiac Code - Full Ppx - warfarin INR goal 2.5-3.5 Dispo - Admit under observation status
[2018-09-24] MEDS ORDERED: HYDROmorphONE/DILAUDID 4 MG TAB PO PRN (05:08)
[2018-09-24] MEDS ORDERED: HYDROmorphONE/DILAUDID 2 MG TAB ONE (05:12)
[2018-09-24] MEDS ORDERED: HYDROmorphONE/DILAUDID 2 MG TAB PO PRN (10:10)
--- NOTE | 2018-09-24 11:40 | PDIAF ---
- Diagnosis Code Status: Full Code - Medication Management Discharge Medications: electronically signed and located in the Home Medication List. - Orders Services needed: Registered Nurse, Physical Therapy, Occupational Therapy Isolation Type: None Oxygen: spot check oxyge saturation, wear O2 to mntn above 90% Diet Recommendation: other (renal diet) Diet Texture: Regular Texture Diet Additional Instructions: spot check your oxygen and if needed wear oxygen titrated to maintain an oxygen saturation above 90%. Resume your medications on discharge. - Follow Up Care Current Providers and Referrals: Patient,NotPresent [Unknown] - As per Instructions
[2018-09-24 12:24] VITALS: BP 162/102
--- NOTE | 2018-09-24 12:25 | ASDISCHSUM ---
Discharge Information Plan Status:SNF Medically Cleared to Leave:09/23/2018 Discharge Date:09/23/2018 CM D/C Disposition: ADT D/C Disposition:[facility] Facility Projected Discharge Date:09/24/2018 11:00 AM Transportation at D/C: Discharge Delay Reason: Follow-Up Date:09/24/2018 11:00 AM Discharge Slot: Final Diagnosis: Placement Information Referral Type:*Senior Living/SNF Referral ID:[id number] Provider Name:Lizeth Trujillo/[facility] Address 1:[address] Address 2: Fax Number: [facility]:[place] Selection Factors: State:[place] Patient Contact Information Contact Name:DONI Relationship:Mother [address] Work Phone: [facility]:[place] Alternate Phone: State/Zip Code:[place] [address] Email: Financial Information Financial Class:Medicare Primary Plan Desc:MEDICARE OUTPATIENT Primary Plan Number:[id number] Secondary Plan Desc:MED[place] Secondary Plan Number:[id number] Assessment Information [facility] CM Progress Note CM Note CM Note Notes: Pt is a 27 y/o man admitted for cough and shortness of breath. Pt is well known to [facility]. Pt is currently at at [facility] for SNF rehab. Pt is being d/c'd today back to [facility]. Darwin from [facility] arranged for pt to go straight to dialysis from [facility]. [facility] will arrange for pt to be picked up at dialysis to be brought back to their facility. DC orders sent. SHAVON Baker will call to give report. CM available for changes. Plan: [facility] Date Signed: 09/24/2018 12:24 PM Electronically Signed By:ELIDIA Francisco Intervention Information Intervention Type:*MARTINEZ-Signed Date of Service:09/24/2018 11:25 AM Patient Type:Observation Staff Member:Yolanda Eugene Hours: Discipline: Severity: Comment:
--- NOTE | 2018-09-24 12:25 | ASMTCMCOM ---
CM Note CM Note Notes: Pt is a 27 y/o man admitted for cough and shortness of breath. Pt is well known to [facility]. Pt is currently at at [facility] for SNF rehab. Pt is being d/c'd today back to [facility]. Darwin from [facility] arranged for pt to go straight to dialysis from [facility]. [facility] will arrange for pt to be picked up at dialysis to be brought back to their facility. DC orders sent. SHAVON Baker will call to give report. CM available for changes. Plan: [facility] SNF Date Signed: 09/24/2018 12:24 PM Electronically Signed By:ELIDIA Francisco
--- NOTE | 2018-09-24 16:05 | PDDCSUM ---
Discharge Summary Discharge Summary: Discharge diagnosis Hypoxia End-stage renal disease on hemodialysis Hypertension Mechanical mitral valve a Anemia of chronic disease Chronic opioid use Chronic pain The patient is a 27-year-old male with past medical history of end-stage renal disease on dialysis Saturday, and history of a mechanical mitral valve who re-presented to the emergency room from [facility] because nursing staff noted that he was mildly hypoxic in the middle of the night. The patient was actually just urine underwent an extensive evaluation for his hypoxia. The patient says that he feels fine and actually feels better from when he was discharged on September 20. He says that he uses oxygen as needed at [facility] and his current oxygen requirement is not any higher than what he uses while there. He was noted to be 92% on room air during our interview. He denied any worsening cough. He actually said he was quite annoyed that the staff sent him in from [facility] because he feels better than when he was discharged, and does not feel sick at all. His labs showed an anemia of chronic disease but no suggestion of underlying infection. His vitals were all stable and as mentioned above he was 92% on room air and able to talk with no desaturation. He requested discharge back to [facility] Discharge disposition Back to [facility] Discharge medications To resume home meds Follow-up With his PCP
[2018-09-24] MEDS ORDERED: WARFARIN SODIUM 3 MG TAB PO SCH (17:00)
--- NOTE | 2018-09-27 07:34 | CPEKG ---
Test Reason : OPEN Blood Pressure : / mmHG Vent. Rate : 110 BPM Atrial Rate : 110 BPM P-R Int : 092 ms QRS Dur : 085 ms QT Int : 338 ms P-R-T Axes : 084 028 093 degrees QTc Int : 458 ms Sinus tachycardia Probable left atrial enlargement Confirmed by Asael Miller ([id number]) on 09/27/2018 7:33:27 AM Referred By: Asael Miller Confirmed By:Asael Miller
== END 2018-09-24 13:10 ==
LOC: EDUNIT# → F2W 08:00
PROVIDERS: ADMIT Student in an Organized Health Care Education/Training Program; ATTEND Student in an Organized Health Care Education/Training Program
DX: R09.02 Hypoxemia (principal); N18.6 End stage renal disease; I10 Essential (primary) hypertension; D63.8 Anemia in other chronic diseases classified elsewhere; G89.29 Other chronic pain; Z99.2 Dependence on renal dialysis; Z95.2 Presence of prosthetic heart valve; Z79.891 Long term (current) use of opiate analgesic
CPT/HCPCS: 71045; 93005; 96374; 96375; 99285; G0378; J2270; J2930; 84484-ER

== ENCOUNTER 2018-09-26 16:11 | Inpatient (IN) | payer OTHER, MEDICAID ==
[2018-09-26] MEDS ORDERED: IPRATROPIUM/ALBUTEROL 3 ML DEYVIAL IH ONE (16:23)
[2018-09-26] MEDS ORDERED: methylPREDNISolone SOD SUCC 125 MG/2 ML VIAL IVP ONE (16:23)
[2018-09-26] MEDS ORDERED: valACYclovir 500 MG TAB PO ONE (16:24)
--- NOTE | 2018-09-26 16:29 | EDPHY ---
H & P Stated Complaint: [facility] Time Seen by Provider: 09/26/18 16:14 HPI/ROS: CHIEF COMPLAINT: Shortness of breath HISTORY OF PRESENT ILLNESS: The patient is a 27-year-old man with a history of valvular heart disease status post mechanical mitral valve replacement on Coumadin as well as end-stage renal disease on dialysis Saturday. He was admitted on September 14 for viral pneumonitis secondary to ronquillo virus. He had an extensive cardiac workup at that time. He was discharged on the doing better. Patient then came back to the ER on the complaining of shortness of breath and cough. He was admitted however after several hours he told the admitting team that he was not happy with being here and that he actually felt better than he had previously. He was discharged later that day. Today he finished hemodialysis and got down to his dry weight 70 kg but throughout the procedure continue to cough and was hypoxic at 80% on room air. Rivera called EMS who brought him here to the emergency department. He is requiring oxygen to stay above 90%. He does not typically require oxygen. He denies history of pulmonary disease. He has not had a fever. Severity: Severe Modifying factors: No significant improved with albuterol by EMS REVIEW OF SYSTEMS: Constitutional: denies: chills, fever, recent illness, recent injury EENTM: denies: blurred vision, double vision, nose congestion Respiratory: See HPI Cardiac: denies: chest pain, irregular heart rate, lightheadedness, palpitations Gastrointestinal/Abdominal: denies: abdominal pain, diarrhea, nausea, vomiting, blood streaked stools Genitourinary: denies: dysuria, frequency, hematuria, pain Musculoskeletal: denies: joint pain, muscle pain Skin: denies: lesions, rash, jaundice, bruising Neurological: denies: headache, numbness, paresthesia, tingling, dizziness, weakness Hematologic/Lymphatic: denies: blood clots, easy bleeding, easy bruising Immunologic/allergic: denies: HIV/AIDS, transplant 10 systems reviewed and negative except as noted EXAM: GENERAL: Well-appearing, well-nourished and in no acute distress. HEAD: Atraumatic, normocephalic. EYES: Pupils equal round and reactive to light, extraocular movements intact, sclera anicteric, conjunctiva are normal. ENT: TMs normal, nares patent, oropharynx clear without exudates. Moist mucous membranes. NECK: Normal range of motion, supple without lymphadenopathy or JVD. LUNGS: Left lower lobe rhonchi HEART: Regular rate and rhythm without murmurs, rubs or gallops. ABDOMEN: Soft, nontender, normoactive bowel sounds. No guarding, no rebound. No masses appreciated. BACK: No CVA tenderness, no spinal tenderness, step-offs or deformities EXTREMITIES: Normal range of motion, no pitting or edema. No clubbing or cyanosis. NEUROLOGICAL: Cranial nerves II through XII grossly intact. Normal speech, normal gait. 5/5 strength, normal movement in all extremities, normal sensation , normal reflexes PSYCH: Normal mood, normal affect. SKIN: Warm, dry, normal turgor, no visible rashes or lesions. Source: Patient, EMS, Old records - Personal History Current Tetanus/Diphtheria Vaccine: Yes Current Tetanus Diphtheria and Acellular Pertussis (TDAP): Yes - Medical/Surgical History Hx Asthma: No Hx Chronic Respiratory Disease: No Hx Diabetes: No Hx Cardiac Disease: Yes Hx Renal Disease: Yes Hx Cirrhosis: No Hx Alcoholism: No Hx HIV/AIDS: No Hx Splenectomy or Spleen Trauma: No Other PMH: PMHx: congenital lack of R kidney, failing L kidney dialysis, HTN, chf, mitral valve prolapse w/replacement 07/2017, PNA. PSHx: chani, thoracentisis, av fistula in left distal forarm - Family History Significant Family History: No pertinent family hx - Social History Smoking Status: Current every day smoker Alcohol Use: None Constitutional: Initial Vital Signs Temperature (C) 37.5 C 09/26/18 16:11 Heart Rate 130 H 09/26/18 16:11 Respiratory Rate 18 09/26/18 16:11 Blood Pressure 154/89 H 09/26/18 16:11 O2 Sat (%) 88 L 09/26/18 16:11 O2 Delivery Mode Oxymizer O2 (L/minute) 5 Allergies/Adverse Reactions: No Known Allergies Allergy (Unverified 09/24/18 03:55) Home Medications: Medication Instructions Recorded Gabapentin [Neurontin 100 MG (*)] 100 mg PO HS 01/12/18 Albuterol [Proventil Inhaler HFA 2 puffs IH Q4HRS 09/14/18 (*)] Albuterol [Proventil Inhaler HFA 2 puffs IH Q4HRS PRN 09/14/18 (*)] Benzonatate [Tessalon Pearles] 200 mg PO BID 09/14/18 Calcium Acetate [Phoslo (*)] 2,001 mg PO TIDMEAL 09/14/18 Calcium Carbonate [Tums 500MG (*)] 500 mg PO Q6HRS PRN 09/14/18 Cyclobenzaprine [Flexeril 10 MG 10 mg PO Q8HRS PRN 09/14/18 (*)] HYDROmorphone HCL [Dilaudid 2 mg 2 mg PO Q3HRS PRN 09/14/18 (*)] Nitroglycerin [Nitrostat 0.4 mg 0.4 mg SL Q5M PRN 09/14/18 (*)] Ondansetron Odt [Zofran Odt 4 mg 4 mg PO Q6HRS PRN 09/14/18 (*)] Sertraline HCl [Zoloft 100mg (*)] 200 mg PO DAILY 09/14/18 Sevelamer Carbonate [Renvela] 2,400 mg PO TIDMEAL 09/14/18 guaiFENesin [Mucinex 600 MG (*)] 600 mg PO Q12HRS PRN 09/14/18 traZODone [traZODONE 50MG (*)] 50 mg PO HS 09/14/18 ALPRAZolam [Alprazolam] 0.5 mg PO BID PRN #1 tablet 09/20/18 Acetaminophen [Tylenol 325mg (*)] 650 mg PO Q4HRS PRN tab 09/20/18 Aspirin [Aspirin 81mg (*)] 81 mg PO DAILY tab.chew 09/20/18 Ipratropium/Albuterol [Duoneb (*)] 3 ml IH Q6HRS deyvial 09/20/18 Metoprolol Tartrate [Lopressor 25 12.5 mg PO BID tab 09/20/18 mg (*)] Warfarin Sodium [Coumadin 3MG (*)] 6 mg PO DAILY@17 09/24/18 Medical Decision Making - Diagnostics Imaging Results: Imaging Impressions Chest X-Ray 09/26/18 16:23 Impression: Progressive airspace consolidation in the lower lungs bilaterally, increasing pneumonia versus pulmonary edema. Imaging: Discussed imaging studies w/ call center consultant Radiologist ED Course/Re-evaluation: Patient's x-rays concerning for viral pneumonia versus possibly secondary bacterial pneumonia versus fluid overload. The patient is a dialysis patient. He does meet sepsis criteria because of his elevated INR, although he is on Coumadin but I will not give the fluid bolus because of his volume status and hemodialysis dependency. Clinically does not appear dehydrated. I discussed the case with Dr. Treviño. This a is consistent than what viral pneumonia on x -ray and he does not have a fever. We discussed antibiotics. He would like to evaluate the patient 1st. I have given him acyclovir for the shingles rash. Also steroids. 6:00 p.m. The patient is tachycardic at 130. Blood pressure is slightly elevated. Oxygen is 93% on OxyMask. Will treat with 0.5 L of fluid as a trial. Patient's heart rate has slightly improved with fluids. He has developed a fever. Dr. Treviño has seen the patient and would like to initiate antibiotics. Differential Diagnosis: Partial list of the Differential diagnosis considered include but were not limited to; pneumonia, pleural effusion, CHF, sepsis and although unlikely based on the history and physical exam, I also considered acute coronary disease , valve rupture. - Data Points Laboratory Results: Laboratory Results 09/26/18 17:15 09/26/18 17:15 09/26/18 09/26/18 09/26/18 18:05 17:19 17:15 WBC RBC Hgb Hct MCV MCH MCHC RDW Plt Count MPV Neut % (Auto) Lymph % (Auto) [place] % (Auto) Eos % (Auto) Baso % (Auto) Nucleat RBC Rel Count Absolute Neuts (auto) Absolute Lymphs (auto) Absolute Monos (auto) Absolute Eos (auto) Absolute Basos (auto) Absolute Nucleated RBC Immature Gran % Immature Gran # PT INR APTT VBG Lactic Acid 0.8 mmol/L mmol/L (0.7-2.1) Sodium 138 mEq/L mEq/L (135-145) Potassium 3.9 mEq/L mEq/L (3.5-5.2) Chloride 97 mEq/L mEq/L (97-110) Carbon Dioxide 32 mEq/l H mEq/l (22-31) Anion Gap 9 mEq/L mEq/L (6-14) BUN 17 mg/dL mg/dL (7-23) Creatinine 3.7 mg/dL H mg/dL (0.7-1.3) Estimated GFR 20 Glucose 87 mg/dL mg/dL (70-100) Calcium 9.0 mg/dL mg/dL (8.5-10.4) Total Bilirubin 1.0 mg/dL mg/dL (0.1-1.4) Procalcitonin 1.45 ng/mL H ng/mL (0.02-0.10) 09/26/18 09/26/18 17:15 17:15 WBC 9.43 10^3/uL 10^3/uL (3.80-9.50) RBC 2.33 10^6/uL L 10^6/uL (4.40-6.38) Hgb 7.2 g/dL L g/dL (13.7-17.5) Hct 22.4 % L % (40.0-51.0) MCV 96.1 fL fL (81.5-99.8) MCH 30.9 pg pg (27.9-34.1) MCHC 32.1 g/dL L g/dL (32.4-36.7) RDW 15.7 % H % (11.5-15.2) Plt Count 225 10^3/uL 10^3/uL (150-400) MPV 9.4 fL fL (8.7-11.7) Neut % (Auto) 86.4 % H % (39.3-74.2) Lymph % (Auto) 7.0 % L % (15.0-45.0) [place] % (Auto) 3.9 % L % (4.5-13.0) Eos % (Auto) 1.1 % % (0.6-7.6) Baso % (Auto) 0.3 % % (0.3-1.7) Nucleat RBC Rel Count 0.0 % % (0.0-0.2) Absolute Neuts (auto) 8.15 10^3/uL H 10^3/uL (1.70-6.50) Absolute Lymphs (auto) 0.66 10^3/uL L 10^3/uL (1.00-3.00) Absolute Monos (auto) 0.37 10^3/uL 10^3/uL (0.30-0.80) Absolute Eos (auto) 0.10 10^3/uL 10^3/uL (0.03-0.40) Absolute Basos (auto) 0.03 10^3/uL 10^3/uL (0.02-0.10) Absolute Nucleated RBC 0.00 10^3/uL 10^3/uL (0-0.01) Immature Gran % 1.3 % H % (0.0-1.1) Immature Gran # 0.12 10^3/uL H 10^3/uL (0.00-0.10) PT 35.1 SEC H SEC (12.0-15.0) INR 3.53 H (0.83-1.16) APTT 74.5 SEC H SEC (23.0-38.0) VBG Lactic Acid Sodium Potassium Chloride Carbon Dioxide Anion Gap BUN Creatinine Estimated GFR Glucose Calcium Total Bilirubin Procalcitonin Medications Given: Discontinued Medications Albuterol/Ipratropium (Duoneb) 3 ml IH EDNOW ONE Stop: 09/26/18 16:24 Last Admin: 09/26/18 17:20 Dose: 3 ml Sodium Chloride (Ns) 500 mls @ 1,000 mls/hr IV EDNOW ONE PRN Reason: Protocol Stop: 09/26/18 18:33 Last Admin: 09/26/18 18:57 Dose: 500 mls Ketamine HCl (Ketamine) 20 mg IVP EDNOW ONE Stop: 09/26/18 17:54 Last Admin: 09/26/18 17:59 Dose: 20 mg Ketamine HCl (Ketamine) 20 mg IVP ONCE ONE Stop: 09/26/18 19:23 Last Admin: 09/26/18 19:29 Dose: 20 mg Ketamine HCl (Ketamine) 20 mg IVP ONCE ONE Stop: 09/26/18 20:42 Last Admin: 09/26/18 20:44 Dose: 20 mg Methylprednisolone Sodium Succinate (Solu-Medrol) 125 mg IVP EDNOW ONE Stop: 09/26/18 16:24 Last Admin: 09/26/18 17:20 Dose: 125 mg Valacyclovir HCl (Valtrex) 1,000 mg PO EDNOW ONE Stop: 09/26/18 16:25 Last Admin: 09/26/18 17:19 Dose: 1,000 mg Departure - Departure Disposition: [facility] Clinical Impression: Hypoxia Bilateral pneumonia Qualifiers: Pneumonia type: due to unspecified organism Lung location: unspecified part of lung Qualified Code(s): J18.9 - Pneumonia, unspecified organism Anemia Qualifiers: Anemia type: due to chronic kidney disease Chronic kidney disease stage: on chronic dialysis Qualified Code(s): N18.6 - End stage renal disease Condition: Fair
[2018-09-26 17:30] LABS: PLATELET COUNT 225 10^3/uL (150-400)
[2018-09-26 17:44] LABS: INR 3.53 (0.83-1.16); PROTIME(PATIENT) 35.1 SEC (12.0-15.0)
[2018-09-26] MEDS ORDERED: KETAMINE 200 MG/20 ML VIAL IVP ONE ×3 (17:53→20:41)
[2018-09-26] MEDS ORDERED: NS 500 ML IV ONE (18:04)
[2018-09-26] MEDS ORDERED: KETAMINE 200 MG/20 ML VIAL ONE (19:24)
[2018-09-26] MEDS ORDERED: ALBUTEROL 60 PUFFS/8 GM MDI IH PRN (20:00)
[2018-09-26] MEDS ORDERED: CALCIUM CARBONATE 500 MG CHEWABLE TAB PO PRN (20:00)
--- NOTE | 2018-09-26 20:21 | PDGENHP ---
History and Physical - Chief Complaint shortness of breath - History of Present Illness 27yo M with ESRD on HD, MVP s/p mechanical mitral valve on warfarin, anemia, recent hospitalization for coronavirus pneumonitis presents with worsening shortness of breath. Discharged 09/20, returned to ED on 09/24 for shortness of breath and had short observation stay but left from the ED. Returns today with progression of respiratory symptoms. He is having difficulty catching his breath and is coughing up bloody mucous. He is also noticing some blood in his mucous when he sneezes. Reports having fevers and chills for 3-4 days. No orthopnea, chest pain, or leg edema. He underwent HD today and is actually at his dry weight of 70kg. They noticed his oxygen saturations were 80% at HD so they sent him to the ED. In the ED, he was hypoxic as above and improved with supplemental oxygen. He was also tachycardic into the 120s and developed a fever to 39. He was given vancomycin and cefepime and is being admitted for further management. Case discussed with ED physician Jadiel Huang. History Information - Allergies/Home Medication List Allergies/Adverse Reactions: No Known Allergies Allergy (Unverified 09/24/18 03:55) Home Medications: Gabapentin [Neurontin 100 MG (*)] 100 mg PO HS 01/12/18 [Last Taken 09/23/18] Albuterol [Proventil Inhaler HFA (*)] 2 puffs IH Q4HRS 09/14/18 [Last Taken 02:00] Albuterol [Proventil Inhaler HFA (*)] 2 puffs IH Q4HRS PRN 09/14/18 [Last Taken Unknown] Benzonatate [Tessalon Pearles] 200 mg PO BID 09/14/18 [Last Taken 09/23/18 21:00 ] Calcium Acetate [Phoslo (*)] 2,001 mg PO TIDMEAL 09/14/18 [Last Taken 09/23/18 18:00] Calcium Carbonate [Tums 500MG (*)] 500 mg PO Q6HRS PRN 09/14/18 [Last Taken Unknown] Cyclobenzaprine [Flexeril 10 MG (*)] 10 mg PO Q8HRS PRN 09/14/18 [Last Taken 07/30 21:00] HYDROmorphone HCL [Dilaudid 2 mg (*)] 2 mg PO Q3HRS PRN 09/14/18 [Last Taken 03:00] Nitroglycerin [Nitrostat 0.4 mg (*)] 0.4 mg SL Q5M PRN 09/14/18 [Last Taken Unknown] Ondansetron Odt [Zofran Odt 4 mg (*)] 4 mg PO Q6HRS PRN 09/14/18 [Last Taken Unknown] Sertraline HCl [Zoloft 100mg (*)] 200 mg PO DAILY 09/14/18 [Last Taken 09/23/18] Sevelamer Carbonate [Renvela] 2,400 mg PO TIDMEAL 09/14/18 [Last Taken 09/23/18 18:00] guaiFENesin [Mucinex 600 MG (*)] 600 mg PO Q12HRS PRN 09/14/18 [Last Taken 09/20 18:00] traZODone [traZODONE 50MG (*)] 50 mg PO HS 09/14/18 [Last Taken 09/23/18] Warfarin Sodium [Coumadin 3MG (*)] 6 mg PO DAILY@17 09/24/18 [Last Taken ] I have personally reviewed and updated: family history, medical history, social history, surgical history - Past Medical History CHF, ESRD Additional medical history: ESRD secondary to solitary kidney on HD [facility] (Dr Rawls), CHF, history of mitral valve prolapse s/p initial bioprosthetic MV complicated by MS now s/p mechanical MVR, anemia of chronic kidney disease, chronic pain on opiates, insomnia - Surgical History Additional surgical history: LUE AVF creation, bioprosthetic MVR, failed MV annuloplasty (01/2018), mechanical MV replacement (01/2018), cholecystectomy - Family History Positive for: non-pertinent Additional family history: No family history of end-stage renal disease or valvular heart disease - Social History Smoking Status: Current every day smoker Alcohol Use: None Additional social history: Lives at [facility]. Mother just recently 07/2018. No other family in area. Originally from [place]. Review of Systems Review of Systems: ROS: 10pt was reviewed & negative except for what was stated in HPI & below Physical Exam Physical Exam: Temp Pulse Resp BP Pulse Ox 39 C H 130 H 28 H 160/95 H 96 09/26/18 19:30 09/26/18 19:30 09/26/18 19:30 09/26/18 19:30 09/26/18 19:30 O2 (L/minute) 5 Constitutional: uncomfortable, other (intermittely shaking) Eyes: PERRL, anicteric sclera Ears, Nose, Mouth, Throat: dry mucous membranes Cardiovascular: systolic murmur, tachycardia, other (audible click), No JVD, No edema Respiratory: reduced air movement, expiratory wheeze, respiratory distress, rhonchi (bilateral lower lobes), No inspiratory crackles Gastrointestinal: normoactive bowel sounds, soft, non-tender abdomen, no palpable masses Genitourinary: no bladder fullness, no bladder tenderness Skin: warm, normal color, no rashes or abrasions, no fluctuance, no induration, No mottled Musculoskeletal: full muscle strength, no muscle tenderness, normal joint ROM, no joint effusions Neurologic: AAOx3 Psychiatric: interacting appropriately, not anxious, not encephalopathic, thought process linear Lab Data & Imaging Review 09/26/18 17:15 09/26/18 17:15 WBC 9.43 10^3/uL (3.80-9.50) 09/26/18 17:15 RBC 2.33 10^6/uL (4.40-6.38) L 09/26/18 17:15 Hgb 7.2 g/dL (13.7-17.5) L 09/26/18 17:15 Hct 22.4 % (40.0-51.0) L 09/26/18 17:15 MCV 96.1 fL (81.5-99.8) 09/26/18 17:15 MCH 30.9 pg (27.9-34.1) 09/26/18 17:15 MCHC 32.1 g/dL (32.4-36.7) L 09/26/18 17:15 RDW 15.7 % (11.5-15.2) H 09/26/18 17:15 Plt Count 225 10^3/uL (150-400) 09/26/18 17:15 MPV 9.4 fL (8.7-11.7) 09/26/18 17:15 Neut % (Auto) 86.4 % (39.3-74.2) H 09/26/18 17:15 Lymph % (Auto) 7.0 % (15.0-45.0) L 09/26/18 17:15 [place] % (Auto) 3.9 % (4.5-13.0) L 09/26/18 17:15 Eos % (Auto) 1.1 % (0.6-7.6) 09/26/18 17:15 Baso % (Auto) 0.3 % (0.3-1.7) 09/26/18 17:15 Nucleat RBC Rel Count 0.0 % (0.0-0.2) 09/26/18 17:15 Absolute Neuts (auto) 8.15 10^3/uL (1.70-6.50) H 09/26/18 17:15 Absolute Lymphs (auto) 0.66 10^3/uL (1.00-3.00) L 09/26/18 17:15 Absolute Monos (auto) 0.37 10^3/uL (0.30-0.80) 09/26/18 17:15 Absolute Eos (auto) 0.10 10^3/uL (0.03-0.40) 09/26/18 17:15 Absolute Basos (auto) 0.03 10^3/uL (0.02-0.10) 09/26/18 17:15 Absolute Nucleated RBC 0.00 10^3/uL (0-0.01) 09/26/18 17:15 Immature Gran % 1.3 % (0.0-1.1) H 09/26/18 17:15 Immature Gran # 0.12 10^3/uL (0.00-0.10) H 09/26/18 17:15 PT 35.1 SEC (12.0-15.0) H 09/26/18 17:15 INR 3.53 (0.83-1.16) H 09/26/18 17:15 APTT 74.5 SEC (23.0-38.0) H 09/26/18 17:15 VBG Lactic Acid 0.8 mmol/L (0.7-2.1) 09/26/18 18:05 Sodium 138 mEq/L (135-145) 09/26/18 17:15 Potassium 3.9 mEq/L (3.5-5.2) 09/26/18 17:15 Chloride 97 mEq/L (97-110) 09/26/18 17:15 Carbon Dioxide 32 mEq/l (22-31) H 09/26/18 17:15 Anion Gap 9 mEq/L (6-14) 09/26/18 17:15 BUN 17 mg/dL (7-23) 09/26/18 17:15 Creatinine 3.7 mg/dL (0.7-1.3) H 09/26/18 17:15 Estimated GFR 20 09/26/18 17:15 Glucose 87 mg/dL (70-100) 09/26/18 17:15 Calcium 9.0 mg/dL (8.5-10.4) 09/26/18 17:15 Total Bilirubin 1.0 mg/dL (0.1-1.4) 09/26/18 17:15 Interpretation: CXR: worsening bilateral lower lobe alveolar infiltrates ( interpreted by me) EKG additional interpertation: ECG: sinus tachycardia, no acute ischemic changes , no significant change from prior besides going fast (interp by me) Assessment & Plan Assessment: 27yo M with ESRD on HD, MVP s/p mechanical mitral valve on warfarin, anemia, recent hospitalization for coronavirus pneumonitis presents with worsening shortness of breath found to be hypoxic with sepsis physiology. Plan: 1. Acute hypoxemic respiratory failure: Suspect due to bacterial pneumonia. Increased work of breathing, accessory muscle use with O2 sats in 80s on room air. - Supplemental oxygen as needed, may need NIPPV - Antibiotics per below 2. Bilateral lower lobe pneumonia: Likely bacterial infection that occurred after recent coronaviral pneumonitis. With recent hospitalization and HD, will cover for hospital acquired organisms. - IV vancomycin and cefepime 1g q24h (for ESRD) - Check procalcitonin 3. Sepsis: tachycardic, febrile, increased RR with pulm source. His BP is actually a bit high. - Blood cultures drawn in the ED, antibiotics as above - He is receiving gentle IVF 4. Hemoptysis: Suspect due to bronchial inflammation from infection. Monitor. 5. Rash consistent with herpes zoster - Ordered valacyclovir PO 500mg q24h due to renal function (s/p 1000mg in ED) - Airborn precautions 6. ESRD on HD: At dry weight. - Consult nephrology in AM for HD while inpatient - Continue phos binders 7. Valvular heart disease: Recent mitral valve evaluation that was unremarkable. Will not repeat TTE at this time. 8. MVP s/p mechanical mitral valve: INR goal 2.5-3.5, currently slightly above - Continue warfarin 9. Anemia: Due to renal disease. Slightly lower than baseline - Monitor, EPO per renal 10. HTN: - Holding home meds with sepsis 11. Chronic pain with chronic opioid use - Continue home dilaudid, gabapentin VTE ppx: SQH Code: full Diet: renal Dispo: Admit as inpatient for IV therapies
[2018-09-26] MEDS ORDERED: CEFEPIME HCL 2 GM in NS 100 ML IV SCH (20:30)
[2018-09-26] MEDS ORDERED: LORazepam 2 MG/ML INJ IVP ONE (21:52)
[2018-09-26] MEDS ORDERED: VANCOMYCIN HCL/NORMAL SALINE 250 ML IV ONE (22:00)
[2018-09-26] MEDS: HEPARIN 5,000 UNIT/0.5 ML INJ SC SCH (22:23)
[2018-09-26] MEDS: guaiFENesin 600 MG TAB.ER PO PRN (22:23)
[2018-09-26] MEDS: GABAPENTIN 100 MG CAP PO SCH (22:24)
[2018-09-26] MEDS: CYCLOBENZAPRINE 10 MG TAB PO PRN (22:24)
[2018-09-26] MEDS: traZODone 50 MG TAB PO SCH (22:24)
[2018-09-26] MEDS: HYDROmorphONE/DILAUDID 2 MG TAB PO PRN (22:50)
[2018-09-26] MEDS: CEFEPIME HCL 1 GM in NS 50 ML IV SCH (22:51)
[2018-09-27 04:32] LABS: PLATELET COUNT 213 10^3/uL (150-400)
[2018-09-27] MEDS: HEPARIN 5,000 UNIT/0.5 ML INJ SC SCH ×3 (05:54→21:03)
[2018-09-27] MEDS: SERTRALINE HCL 100 MG TAB PO SCH (09:25)
[2018-09-27] MEDS: valACYclovir 500 MG TAB PO SCH (09:25)
[2018-09-27] MEDS: CALCIUM ACETATE 667 MG CAP PO SCH ×4 (09:25→17:51)
[2018-09-27] MEDS: ASPIRIN 81 MG CHEWABLE TAB PO SCH (09:26)
[2018-09-27] MEDS: ALPRAZolam 1 MG TAB PO PRN ×3 (09:26→21:00)
[2018-09-27] MEDS: SEVELAMER HCL 800 MG TAB PO SCH ×4 (09:26→17:52)
[2018-09-27] MEDS: HYDROmorphONE/DILAUDID 2 MG TAB PO PRN ×3 (09:30→21:19)
--- NOTE | 2018-09-27 09:34 | ASMTCMCOM ---
CM Note CM Note Notes: Pt is a 27 year old male, resident of [facility], presents with viral pnemonia and hypoxia. Pt has history of ESRD, HTN, and mechanical mitral valve. This is pt's third time at [facility] this month. Pt is current with [facility]. CM submit updates to Lizeth Trujillo CM to follow. [facility] [place] contacted. Plan: TBD, likely to return to [facility] with continued Dialysis. Date Signed: 09/27/2018 09:33 AM Electronically Signed By:ELIDIA Sosa
--- NOTE | 2018-09-27 10:23 | PDMN ---
Medical Necessity Medical necessity: Pt meets IP criteria as of 09/26 per MD and MCG M-160 (Sepsis) ; est los > 2 mn for ongoing tx and management of sepsis with tachycardia, fever , hypoxia and tachypnea in the setting of bilateral lower lobe pneumonia with acute hypoxemic respiratory failure; requiring IV ABX, supplemental O2, IVF, and management of other conditions including rash (likely zoster), ESRD on HD, valvular heart disease, anemia, HTN, and chronic pain with chronic opioid use.
[2018-09-27] MEDS ORDERED: KETOROLAC 15 MG/1 ML SDV IVP SCH (11:36)
--- NOTE | 2018-09-27 11:36 | HOSPPROG ---
Hospitalist Progress Note Assessment/Plan: 27 yo M w esrd, MV replacement, recent coronavirus a/w sepsis, b'l pneumonia sepsis: fever, tachycardia, source pneumonia: may be viral but reasonable and appropriate to treat as HCAP vanc/cefepime add azithro follow vanc levels daily pleuritic pain: add toradol d/w dr ley esrd: due for HD 09/29 k 5.3 noted follow, telemetry MVR: inr supratherapeutic follow daily dispo: inpt Subjective: cxr w b/l airspace disease. c/o pleuritic pain, anxiety. case d/w dr ley Objective: Vital Signs Temp Pulse Resp BP Pulse Ox 36.7 C 104 H 19 146/106 H 97 09/27/18 08:00 09/27/18 08:00 09/27/18 08:00 09/27/18 08:00 09/27/18 08:00 Laboratory Results 09/27/18 03:05 09/27/18 03:05 09/26/18 09/27/18 09/28/18 05:59 05:59 05:59 Intake Total 810 Balance 810 PT 35.1 SEC (12.0-15.0) H 09/26/18 17:15 INR 3.53 (0.83-1.16) H 09/26/18 17:15 - Physical Exam Constitutional: no apparent distress, appears nourished Eyes: PERRL, anicteric sclera Ears, Nose, Mouth, Throat: moist mucous membranes, hearing normal Cardiovascular: regular rate and rhythym, no murmur, rub, or gallop Respiratory: rhonchi, other (pleural rub, b/l crackles, good air movement, no wheeze) Gastrointestinal: normoactive bowel sounds, soft, non-tender abdomen Genitourinary: no bladder fullness, No heller in urethra Skin: warm, normal color Musculoskeletal: full muscle strength ICD10 Worksheet Patient Problems: Problems Problem Status Onset Bilateral pneumonia Acute Hypoxia Acute Anemia Chronic Acute blood loss anemia Acute Acute bronchitis Acute Chest pain Acute Coagulopathy Acute Dyspnea Acute ESRD on hemodialysis Acute Elevated troponin Acute Fever Acute Headache Acute Pneumonia Acute Postoperative pneumothorax Acute Prosthetic mitral valve stenosis Acute Pulmonary edema Acute S/P mitral valve replacement with metallic valve Acute ~02/07/18 Shortness of breath Acute Tachycardia Acute CHF (congestive heart failure) Chronic ESRD (end stage renal disease) Chronic Hypertensive urgency Chronic Severe mitral regurgitation Chronic
[2018-09-27] MEDS ORDERED: KETOROLAC 15 MG/1 ML SDV IVP ONE (12:15)
[2018-09-27] MEDS: AZITHROMYCIN 250 MG TAB PO SCH (12:17)
[2018-09-27] MEDS: ACETAMINOPHEN 325 MG TAB PO PRN (15:25)
[2018-09-27] MEDS: CYCLOBENZAPRINE 10 MG TAB PO PRN (21:01)
[2018-09-27] MEDS: traZODone 50 MG TAB PO SCH (21:01)
[2018-09-27] MEDS: GABAPENTIN 100 MG CAP PO SCH (21:02)
[2018-09-27] MEDS: CEFEPIME HCL 1 GM in NS 50 ML IV SCH (21:03)
[2018-09-28 04:32] LABS: PLATELET COUNT 195 10^3/uL (150-400)
[2018-09-28 04:37] LABS: INR 4.45 (0.83-1.16); PROTIME(PATIENT) 41.9 SEC (12.0-15.0)
[2018-09-28] MEDS: HEPARIN 5,000 UNIT/0.5 ML INJ SC SCH ×3 (06:04→21:46)
[2018-09-28] MEDS: CALCIUM ACETATE 667 MG CAP PO SCH ×4 (09:12→18:50)
[2018-09-28] MEDS: SEVELAMER HCL 800 MG TAB PO SCH ×4 (09:12→18:50)
[2018-09-28] MEDS: ALPRAZolam 1 MG TAB PO PRN ×2 (09:12→21:05)
[2018-09-28] MEDS: ACETAMINOPHEN 325 MG TAB PO PRN (09:13)
[2018-09-28] MEDS: valACYclovir 500 MG TAB PO SCH (09:13)
[2018-09-28] MEDS: ASPIRIN 81 MG CHEWABLE TAB PO SCH (09:13)
[2018-09-28] MEDS: SERTRALINE HCL 100 MG TAB PO SCH (09:13)
[2018-09-28] MEDS: AZITHROMYCIN 250 MG TAB PO SCH (09:13)
[2018-09-28] MEDS: HYDROmorphONE/DILAUDID 2 MG TAB PO PRN ×3 (09:13→21:05)
--- NOTE | 2018-09-28 14:35 | HOSPPROG ---
Hospitalist Progress Note Assessment/Plan: 27 yo M w esrd, MV replacement, recent coronavirus a/w sepsis, b'l pneumonia sepsis: fever, tachycardia, source pneumonia: may be viral but reasonable and appropriate to treat as HCAP vanc/cefepime add azithro follow vanc levels daily exam improved today check cxr in AM anemia: give blood in HD shingles: crusted over continue acyclovir pleuritic pain: continue pain meds esrd: due for HD 09/29 k 5.3 noted follow, telemetry MVR: inr supratherapeutic hold warfarin follow daily dispo: inpt Objective: Vital Signs Temp Pulse Resp BP Pulse Ox 36.5 C 107 H 17 136/89 H 90 L 09/28/18 11:44 09/28/18 11:44 09/28/18 11:44 09/28/18 11:44 09/28/18 11:44 Laboratory Results 09/28/18 03:05 09/28/18 09:30 09/27/18 09/28/18 09/29/18 05:59 05:59 05:59 Intake Total 810 1530 75 Balance 810 1530 75 PT 41.9 SEC (12.0-15.0) H 09/28/18 03:05 INR 4.45 (0.83-1.16) H 09/28/18 03:05 - Physical Exam Constitutional: no apparent distress, appears nourished Eyes: PERRL, anicteric sclera Ears, Nose, Mouth, Throat: moist mucous membranes, hearing normal Cardiovascular: regular rate and rhythym, no murmur, rub, or gallop Respiratory: other (improved lung exam, less crackles/rhonchi) Gastrointestinal: normoactive bowel sounds, soft, non-tender abdomen Genitourinary: no bladder fullness, No heller in urethra Skin: warm, normal color Musculoskeletal: full muscle strength Neurologic: AAOx3 Psychiatric: interacting appropriately ICD10 Worksheet Patient Problems: Problems Problem Status Onset Bilateral pneumonia Acute Hypoxia Acute Anemia Chronic Acute blood loss anemia Acute Acute bronchitis Acute Chest pain Acute Coagulopathy Acute Dyspnea Acute ESRD on hemodialysis Acute Elevated troponin Acute Fever Acute Headache Acute Pneumonia Acute Postoperative pneumothorax Acute Prosthetic mitral valve stenosis Acute Pulmonary edema Acute S/P mitral valve replacement with metallic valve Acute ~02/07/18 Shortness of breath Acute Tachycardia Acute CHF (congestive heart failure) Chronic ESRD (end stage renal disease) Chronic Hypertensive urgency Chronic Severe mitral regurgitation Chronic
--- NOTE | 2018-09-28 15:53 | SOAPPROG ---
JASON Progress Note Assessment/Plan: Assessment/Plan: ESRD: On HD MWF at [facility]. - Will do HD today off-schedule while transfusing PRBCs. - Next HD will be due on Saturday per routine. Anemia: Hgb 6.6, will transfuse PRBCs today. Hyperkalemia: will modulate on HD. Hypervolemia: will modulate on HD. NADIA: continue phos binders, will check phos with am labs. Subjective: Mr. Alexander is a 27 yo M with ESRD on HD MWF at [facility]. He was just recently discharged and came back on 09/26 with fever and cough, being treated for pneumonia. He notes that he feels better. His last HD was on Saturday per routine. Objective: Vital Signs Temp Pulse Resp BP Pulse Ox 36.5 C 107 H 17 136/89 H 90 L 09/28/18 11:44 09/28/18 11:44 09/28/18 11:44 09/28/18 11:44 09/28/18 11:44 Laboratory Results 09/28/18 03:05 09/28/18 09:30 09/27/18 09/28/18 09/29/18 05:59 05:59 05:59 Intake Total 810 1530 75 Balance 810 1530 75 PT 41.9 SEC (12.0-15.0) H 09/28/18 03:05 INR 4.45 (0.83-1.16) H 09/28/18 03:05 General: alert and oriented, no acute distress Eyes: EOMI, PERRL OP: Clear CV: RRR Resp: nonlabored respirations Abd: Soft, NT/ND Ext: trace edema BLE Neuro: CN II-XII Grossly intact, no asterixis Psych: cooperative Access: LUE AVF cannulated ICD10 Worksheet Patient Problems: Problems Problem Status Onset Bilateral pneumonia Acute Hypoxia Acute Anemia Chronic Acute blood loss anemia Acute Acute bronchitis Acute Chest pain Acute Coagulopathy Acute Dyspnea Acute ESRD on hemodialysis Acute Elevated troponin Acute Fever Acute Headache Acute Pneumonia Acute Postoperative pneumothorax Acute Prosthetic mitral valve stenosis Acute Pulmonary edema Acute S/P mitral valve replacement with metallic valve Acute ~02/07/18 Shortness of breath Acute Tachycardia Acute CHF (congestive heart failure) Chronic ESRD (end stage renal disease) Chronic Hypertensive urgency Chronic Severe mitral regurgitation Chronic
[2018-09-28] MEDS: traZODone 50 MG TAB PO SCH (21:05)
[2018-09-28] MEDS: CYCLOBENZAPRINE 10 MG TAB PO PRN (21:07)
[2018-09-28] MEDS: GABAPENTIN 100 MG CAP PO SCH (21:07)
[2018-09-28] MEDS: guaiFENesin 600 MG TAB.ER PO PRN (21:07)
[2018-09-28] MEDS: CEFEPIME HCL 1 GM in NS 50 ML IV SCH (21:47)
[2018-09-29] MEDS: HYDROmorphONE/DILAUDID 2 MG TAB PO PRN ×5 (01:40→21:17)
[2018-09-29 05:23] LABS: INR 2.66 (0.83-1.16); PROTIME(PATIENT) 28.3 SEC (12.0-15.0)
[2018-09-29] MEDS: HEPARIN 5,000 UNIT/0.5 ML INJ SC SCH ×3 (05:28→21:21)
[2018-09-29] MEDS: AZITHROMYCIN 250 MG TAB PO SCH (08:52)
[2018-09-29] MEDS: SEVELAMER HCL 800 MG TAB PO SCH ×3 (08:52→21:19)
[2018-09-29] MEDS: SERTRALINE HCL 100 MG TAB PO SCH (08:52)
[2018-09-29] MEDS: valACYclovir 500 MG TAB PO SCH (08:52)
[2018-09-29] MEDS: ACETAMINOPHEN 325 MG TAB PO PRN (08:57)
[2018-09-29] MEDS: CALCIUM ACETATE 667 MG CAP PO SCH ×3 (08:57→21:19)
[2018-09-29] MEDS: ASPIRIN 81 MG CHEWABLE TAB PO SCH (09:03)
--- NOTE | 2018-09-29 09:21 | ASMTLACE ---
ALICIA Acuity / Level of Answers: Yes Care: Did the patient have an inpatient admission? Comorbidities - select Answers: Congestive heart failure all that apply Moderate or severe liver or renal disease Opioid dependence / Chronic pain Other Notes: HTN # of Emergency department Answers: 5-8 visits in the last 6 months Score: 18 Date Signed: 09/29/2018 09:21 AM Electronically Signed By:Tami Baltazar
[2018-09-29] MEDS: PROMETHAZINE HCL 25 MG/ML INJ IVP PRN ×2 (11:31→17:51)
--- NOTE | 2018-09-29 11:37 | SOAPPROG ---
SOAP Progress Note Assessment/Plan: Assessment: 1. ESRD MWF, off schedule. Last HD Saturday, next on Sat. 2. Anemia Low, but stable. Start procrit. Transfuse if further decline 3. Pneumonia Clinically improved on Cefipime and Vanco 4. MVR Heart failure well compensated at moment 5. Nausea Awakened with these. Getting medical treatment. Etio unclear. Follow this Plan: 09/29/18 11:34 Subjective: Doing fair Objective: Vital Signs Temp Pulse Resp BP Pulse Ox 36.8 C 82 18 150/102 H 90 L 09/29/18 07:48 09/29/18 07:48 09/29/18 07:48 09/29/18 07:48 09/29/18 07:48 Laboratory Results 09/28/18 03:05 09/29/18 03:05 09/28/18 09/29/18 09/30/18 05:59 05:59 05:59 Intake Total 1530 1105 Balance 1530 1105 PT 28.3 SEC (12.0-15.0) H 09/29/18 03:05 INR 2.66 (0.83-1.16) H 09/29/18 03:05 Physical Exam - Physical Exam General Appearance: no apparent distress Respiratory: lungs clear Cardiac/Chest: regular rate, rhythm Extremities: normal inspection, other (access site ok) Neuro/Psych: oriented x 3 ICD10 Worksheet Patient Problems: Problems Problem Status Onset Bilateral pneumonia Acute Hypoxia Acute Anemia Chronic Acute blood loss anemia Acute Acute bronchitis Acute Chest pain Acute Coagulopathy Acute Dyspnea Acute ESRD on hemodialysis Acute Elevated troponin Acute Fever Acute Headache Acute Pneumonia Acute Postoperative pneumothorax Acute Prosthetic mitral valve stenosis Acute Pulmonary edema Acute S/P mitral valve replacement with metallic valve Acute ~02/07/18 Shortness of breath Acute Tachycardia Acute CHF (congestive heart failure) Chronic ESRD (end stage renal disease) Chronic Hypertensive urgency Chronic Severe mitral regurgitation Chronic
[2018-09-29] MEDS ORDERED: EPOETIN ALFA 10,000 UNIT/ML VIAL SC SCH (11:45)
[2018-09-29] MEDS ORDERED: VANCOMYCIN HCL/NORMAL SALINE 250 ML IV ONE (12:00)
[2018-09-29] MEDS: CYCLOBENZAPRINE 10 MG TAB PO PRN ×2 (12:48→21:18)
[2018-09-29] MEDS: ALPRAZolam 1 MG TAB PO PRN ×2 (12:48→21:18)
--- NOTE | 2018-09-29 13:30 | HOSPPROG ---
Hospitalist Progress Note Assessment/Plan: 27 yo M w esrd, MV replacement, recent coronavirus a/w sepsis, b'l pneumonia sepsis: fever, tachycardia, source septic physiology has resolved pneumonia: may be viral but reasonable and appropriate to treat as HCAP vanc/cefepime day 4/5 (receiving second dose vanc today, 09/29) add azithro follow vanc levels daily exam improved today check cxr this afternoon anemia: received blood in HD shingles: crusted over continue acyclovir for total 7 days pleuritic pain: continue pain meds esrd: due for HD 09/29 k 5.3 noted follow, telemetry MVR: inr supratherapeutic hold warfarin follow daily dispo: inpt Subjective: feels better, exam improved Objective: Vital Signs Temp Pulse Resp BP Pulse Ox 36.8 C 81 18 164/122 H 95 09/29/18 11:38 09/29/18 11:38 09/29/18 11:38 09/29/18 11:38 09/29/18 11:38 Laboratory Results 09/28/18 03:05 09/29/18 03:05 09/28/18 09/29/18 09/30/18 05:59 05:59 05:59 Intake Total 1530 1105 Balance 1530 1105 PT 28.3 SEC (12.0-15.0) H 09/29/18 03:05 INR 2.66 (0.83-1.16) H 09/29/18 03:05 - Physical Exam Constitutional: no apparent distress, appears nourished Eyes: PERRL, anicteric sclera Ears, Nose, Mouth, Throat: moist mucous membranes, hearing normal Cardiovascular: regular rate and rhythym, no murmur, rub, or gallop Respiratory: no respiratory distress, no rales or rhonchi, other (exam improved) Gastrointestinal: normoactive bowel sounds, soft, non-tender abdomen Genitourinary: No heller in urethra Skin: warm, normal color Musculoskeletal: full muscle strength Neurologic: AAOx3 ICD10 Worksheet Patient Problems: Problems Problem Status Onset Bilateral pneumonia Acute Hypoxia Acute Anemia Chronic Acute blood loss anemia Acute Acute bronchitis Acute Chest pain Acute Coagulopathy Acute Dyspnea Acute ESRD on hemodialysis Acute Elevated troponin Acute Fever Acute Headache Acute Pneumonia Acute Postoperative pneumothorax Acute Prosthetic mitral valve stenosis Acute Pulmonary edema Acute S/P mitral valve replacement with metallic valve Acute ~02/07/18 Shortness of breath Acute Tachycardia Acute CHF (congestive heart failure) Chronic ESRD (end stage renal disease) Chronic Hypertensive urgency Chronic Severe mitral regurgitation Chronic
[2018-09-29] MEDS: WARFARIN SODIUM 3 MG TAB PO SCH (17:51)
[2018-09-29] MEDS: METOPROLOL TARTRATE 25 MG TAB PO SCH (21:17)
[2018-09-29] MEDS: BENZONATATE 100 MG CAP PO SCH (21:18)
[2018-09-29] MEDS: GABAPENTIN 100 MG CAP PO SCH (21:20)
[2018-09-29] MEDS: traZODone 50 MG TAB PO SCH (21:20)
[2018-09-29] MEDS: CEFEPIME HCL 1 GM in NS 50 ML IV SCH (22:44)
[2018-09-30 03:37] LABS: INR 2.06 (0.83-1.16); PROTIME(PATIENT) 23.3 SEC (12.0-15.0)
[2018-09-30] MEDS: HEPARIN 5,000 UNIT/0.5 ML INJ SC SCH ×2 (05:53→13:36)
[2018-09-30] MEDS: ALPRAZolam 1 MG TAB PO PRN (08:27)
[2018-09-30] MEDS: SEVELAMER HCL 800 MG TAB PO SCH ×2 (08:28→12:01)
[2018-09-30] MEDS: METOPROLOL TARTRATE 25 MG TAB PO SCH (08:29)
[2018-09-30] MEDS: CALCIUM ACETATE 667 MG CAP PO SCH ×2 (08:30→12:01)
[2018-09-30] MEDS: HYDROmorphONE/DILAUDID 2 MG TAB PO PRN ×2 (08:30→12:00)
[2018-09-30] MEDS: ACETAMINOPHEN 325 MG TAB PO PRN (08:31)
[2018-09-30] MEDS: AZITHROMYCIN 250 MG TAB PO SCH (08:32)
[2018-09-30] MEDS: valACYclovir 500 MG TAB PO SCH (08:32)
[2018-09-30] MEDS: BENZONATATE 100 MG CAP PO SCH (08:32)
[2018-09-30] MEDS: ASPIRIN 81 MG CHEWABLE TAB PO SCH (08:32)
[2018-09-30] MEDS: SERTRALINE HCL 100 MG TAB PO SCH (09:47)
[2018-09-30] MEDS ORDERED: CEFEPIME HCL 1 GM in NS 50 ML IV ONE (12:36)
[2018-09-30 12:40] VITALS: BP 148/92
--- NOTE | 2018-09-30 12:41 | PDIAF ---
- Diagnosis Diagnosis: pneumonia Code Status: Full Code - Medication Management Additional Medication Instructions: Stop Levaquin and Acyclovir after 10/03 dose Discharge Medications: electronically signed and located in the Home Medication List. - Orders Isolation Type: Contact Isolation Diet Recommendation: no restrictions on diet - Labs/Radiology PT/INR Date: 10/03/18 - Follow Up Care Current Providers and Referrals: NONE *PRIMARY CARE P,. [Primary Care Provider] - As per Instructions
[2018-09-30] MEDS: WARFARIN SODIUM 3 MG TAB PO SCH (13:35)
[2018-09-30] MEDS: PROMETHAZINE HCL 25 MG/ML INJ IVP PRN (13:35)
--- NOTE | 2018-09-30 14:07 | ASMTDCNOTE ---
Case Management Discharge Discharge Order Complete? Answers: Yes Patient to Obtain Answers: Other Notes: SNF [facility] Medications Transportation Arranged Answers: Other Notes: [facility] transport Transport will Pick (Date 09/30/2018 02:15 PM & Time) EMTALA Complete Answers: No Case Management Transport Answers: No Form Complete Faxed Final Orders Answers: Yes Agency/Facility Transfer Answers: Yes Report Printed & Faxed to Receiving Agency Family Notified Answers: No Discharge Comments Notes: CM discussed case w/ Dr Rincon. Pt is being d/c today back to [facility] and orders Faxed. CM provided Tel Number for RN to give report. No other needs identified but CM available if any arrive. Plan: Dicharge to [facility]. Date Signed: 09/30/2018 02:06 PM Electronically Signed By:ELIDIA Francisco
--- NOTE | 2018-09-30 14:10 | ASDISCHSUM ---
Discharge Information Plan Status:SNF Medically Cleared to Leave: Discharge Date: D/C Disposition: ADT D/C Disposition:Halfway Facility Projected Discharge Date:09/30/2018 11:00 AM Transportation at D/C: Discharge Delay Reason: Follow-Up Date:09/30/2018 11:00 AM Discharge Slot: Final Diagnosis: Placement Information Referral Type:*Fpc/SNF Referral ID:[id number] Provider Name:Lizeth Trujillo/[employer] [place] Address 1:[address] Address 2: Fax Number: [facility]:[place] Selection Factors: State:[place] Patient Contact Information Contact Name:JANNETHEILEEN Relationship:Mother [address] [facility] [address] Work Phone: [facility]:[place] Alternate Phone: [facility] [address]/Zip Code:[place] [address] Email: Financial Information Financial Class:Medicare Primary Plan Desc:MEDICARE INPATIENT Primary Plan Number:[id number] Secondary Plan Desc:MED[place] Secondary Plan Number:[id number] Assessment Information [facility] Progress Note CM Note CM Note Notes: Pt is a 27 year old male, resident of [facility], presents with viral pnemonia and hypoxia. Pt has history of ESRD, HTN, and mechanical mitral valve. This is pt's third time at [facility] this month. Pt is current with [facility]. CM submit updates to [facility] to follow. [facility] contacted. Plan: TBD, likely to return to [facility] with continued Dialysis. Date Signed: 09/27/2018 09:33 AM Electronically Signed By:LEIDIA Sosa LACE LACE Acuity / Level of Answers: Yes Care: Did the patient have an inpatient admission? Comorbidities - select Answers: Congestive heart failure all that apply Moderate or severe liver or renal disease Opioid dependence / Chronic pain Other Notes: HTN # of Emergency department Answers: 5-8 visits in the last 6 months Score: 18 Date Signed: 09/29/2018 09:21 AM Electronically Signed By:Tami Baltazar Case Management Discharge Plan Note Case Management Discharge Discharge Order Complete? Answers: Yes Patient to Obtain Answers: Other Notes: SNF [facility] Medications Transportation Arranged Answers: Other Notes: [facility] transport Transport will Pick (Date 09/30/2018 02:15 PM & Time) EMTALA Complete Answers: No Case Management Transport Answers: No Form Complete Faxed Final Orders Answers: Yes Agency/Facility Transfer Answers: Yes Report Printed & Faxed to Receiving Agency Family Notified Answers: No Discharge Comments Notes: CM discussed case w/ Dr Rincon. Pt is being d/c today back to [facility] and orders Faxed. CM provided Tel Number for RN to give report. No other needs identified but CM available if any arrive. Plan: Dicharge to [facility]. Date Signed: 09/30/2018 02:06 PM Electronically Signed By:ELIDIA Francisco Intervention Information Intervention Type:*Incorrect Registration Date of Service:09/26/2018 10:35 PM Patient Type:Inpatient Staff Member:Julia Covington Hours: Discipline: Severity: Comment: Intervention Type:*IM-Signed Date of Service:09/30/2018 02:04 PM Patient Type:Inpatient Staff Member:Tami Baltazar Hours: Discipline: Severity: Comment:
--- NOTE | 2018-09-30 14:20 | SOAPPROG ---
SOAP Progress Note Assessment/Plan: Assessment: ESRD, next HD tomorrow as outpatient valvular heart disease history of replacement shingles better pneumonia better Plan: HD tomorrow as outpatient wants to go home, OK with me 09/30/18 14:18 Subjective: spirits good no cp sob nausea or vomiting appetite good energy much improved Objective: Vital Signs Temp Pulse Resp BP Pulse Ox 36.9 C 83 21 H 148/92 H 93 09/30/18 12:00 09/30/18 12:00 09/30/18 12:00 09/30/18 12:00 09/30/18 12:00 Laboratory Results 09/30/18 11:39 09/29/18 03:05 09/29/18 09/30/18 10/01/18 05:59 05:59 05:59 Intake Total 1105 650 Balance 1105 650 PT 23.3 SEC (12.0-15.0) H 09/30/18 03:15 INR 2.06 (0.83-1.16) H 09/30/18 03:15 Physical Exam - Physical Exam General Appearance: alert, thin Neck: normal inspection Respiratory: No respiratory distress, No rhonchi, No wheezing Cardiac/Chest: regular rate, rhythm, systolic murmur, No edema Abdomen: normal bowel sounds, non-tender, soft Extremities: No swelling Neuro/Psych: alert, normal mood/affect, oriented x 3 ICD10 Worksheet Patient Problems: Problems Problem Status Onset Bilateral pneumonia Acute Hypoxia Acute Anemia Chronic Acute blood loss anemia Acute Acute bronchitis Acute Chest pain Acute Coagulopathy Acute Dyspnea Acute ESRD on hemodialysis Acute Elevated troponin Acute Fever Acute Headache Acute Pneumonia Acute Postoperative pneumothorax Acute Prosthetic mitral valve stenosis Acute Pulmonary edema Acute S/P mitral valve replacement with metallic valve Acute ~02/07/18 Shortness of breath Acute Tachycardia Acute CHF (congestive heart failure) Chronic ESRD (end stage renal disease) Chronic Hypertensive urgency Chronic Severe mitral regurgitation Chronic
--- NOTE | 2018-10-01 01:30 | GDS ---
[f rep st] DISCHARGE SUMMARY DISCHARGE DIAGNOSES: 1. Pneumonia. 2. Sepsis. 3. Acute respiratory failure. 4. End-stage renal disease. 5. Herpes zoster. 6. Mechanical mitral valve replacement. 7. Continuous narcotic dependency. HISTORY: The patient is a 27-year-old male with end-stage renal disease on hemodialysis, a mechanica l mitral valve on warfarin with a recent hospitalization for coronavirus pneumonitis presenting with worsening shortness of breath. He was coughing up bloody mucus. He has had 3-4 days of fever and hayes d room air oxygen saturations of only 80% and required 5 L of oxygen. His heart rate was 130. Loring rature 39.0. Chest x-ray showed a significant consolidation in the left lung. He was started on cef epime and IV vancomycin to cover hospital-acquired pneumonia. He has been recently living at [facility]. Antibiotics were appropriately dosed for his dialysis. He received a 5-day course of IV inp atient antibiotics. Cultures are negative. He is doing much better. He has weaned down to room air and is afebrile. Will have him complete a couple more days of oral therapy post discharge to comple te at least a 7-day course. He was discharged on Levaquin. He will also continue on valacyclovir re sue dosed for his shingles to complete a 7-day course. DISCHARGE MEDICATIONS: Please see computerized record for full detailed list. New medications: 1. Levaquin 500 mg p.o. q.48 hours for 2 more doses. 2. Valtrex 500 mg p.o. daily for 3 doses. ADDITIONAL DISCHARGE INSTRUCTIONS: Return to [facility]. Greater than 30 minutes' time was spent arranging this discharge. Patient was seen and examined by jennifer miller on the day of discharge. /[id number]/MODL
== END 2018-09-30 14:56 | DRG 871 ==
LOC: EDBD → EDUNIT# → OBSVTOIN 20:00 → F2W 21:03
PROVIDERS: ADMIT Internal Medicine; ATTEND Internal Medicine
PROC: 30233N1 Transfusion of Nonautologous Red Blood Cells into Peripheral Vein, Percutaneous Approach (ICD-10-PCS; 2018-09-27)
PROC: 5A1D70Z Performance of Urinary Filtration, Intermittent, Less than 6 Hours Per Day (ICD-10-PCS; principal; 2018-09-28)
DX: A41.9 Sepsis, unspecified organism (principal); J18.8 Other pneumonia, unspecified organism; J96.00 Acute respiratory failure, unspecified whether with hypoxia or hypercapnia; I12.0 Hypertensive chronic kidney disease with stage 5 chronic kidney disease or end stage renal disease; N18.6 End stage renal disease; F11.20 Opioid dependence, uncomplicated; D64.9 Anemia, unspecified; B02.9 Zoster without complications; E86.9 Volume depletion, unspecified; Z95.2 Presence of prosthetic heart valve; Z79.01 Long term (current) use of anticoagulants; Z99.2 Dependence on renal dialysis; Z72.0 Tobacco use
CPT/HCPCS: 96374; J0692; J0885; J1644; J1885; J2060; J2550; J2930; J3370; P9016; P9040

== ENCOUNTER 2018-10-02 23:45 | Inpatient (IN) | payer OTHER, MEDICAID ==
--- NOTE | 2018-10-02 23:56 | EDPHY ---
H & P Stated Complaint: On Abx for PNA here for SOB and fever Time Seen by Provider: 10/02/18 23:52 HPI/ROS: HPI: This is a 27-year-old male who presents with Chief Complaint: Hypoxia, pneumonia Location: Chest Quality: Hypoxia, pneumonia Duration: 1 week Signs and Symptoms: no fever, no nausea, no vomiting, no diarrhea, no urinary symptoms, no chest pain, + shortness of breath, no wheezing, + cough, no sore throat, no neck stiffness, no joint pain, no swollen glands, no ear pain, no rash Timing: Slowly worsening Severity: Moderate Context: Patient has a history of end-stage renal disease, av fistula and left distal forearm, hemodialysis Saturday, Saturday, Saturday presents via EMS from [facility] with 2 day history of worsening shortness of breath at rest and on exertion accompanied by cough. Patient reports that he was admitted to the hospital from 09/26-09/30/2018 with a diagnosis of hospital-acquired pneumonia, herpes zoster, sepsis and acute respiratory failure. Patient was discharged on Levaquin 500 mg every 48 hr and took his last dose today. Patient reports that he spiked a fever today of 101 F and staff at [facility] noted his O2 sats to be 77-80% on room air. He also reports that he has mild orthopnea. Denies any weight gain, lower extremity edema. Modifying Factors: See above Comment: ROS: A comprehensive 10 system review of systems is otherwise negative aside from elements mentioned in the history of present illness. MEDICAL/SURGICAL/SOCIAL HISTORY: PMHx: congenital lack of R kidney, failing L kidney dialysis, HTN, chf, mitral valve prolapse w/replacement 07/2017-on Coumadin, PNA PSHx: cholecystectomy, thoracentesis, av fistula in left distal forarm Social history: Disabled. Current every day smoker. Resident of [facility]. Family history noncontributory. CONSTITUTIONAL: Chronically ill-appearing, talkative, young adult white male, awake and alert, no obvious distress HEENT: Atraumatic and normocephalic, PERRL, EOMI. Nares patent; no rhinorrhea; no nasal mucosal edema. Tympanic membranes clear. Oropharynx clear, no exudate and moist pink mucosa. Airway patent. No lymphadenopathy. No meningismus. Cardiovascular: Normal S1/S2, regular rate, regular rhythm, with murmur. PULMONARY/CHEST: Symmetrical and nontender. Clear to auscultation bilaterally. Good air movement. No accessory muscle usage. ABDOMEN: Soft, nondistended, nontender, no rebound, no guarding, no peritoneal signs, no masses or organomegaly. No CVAT. EXTREMITIES: 2/2 pulses, left forearm AV fistula noted. strength 5/5, no deformities, no clubbing, no cyanosis or edema. NEUROLOGICAL: no focal neuro deficits. GCS 15. SKIN: Warm and dry, no erythema. no rash. Good capillary refill. Source: Patient, RN/MD, EMS, Old records Exam Limitations: No limitations - Medical/Surgical History Hx Asthma: No Hx Chronic Respiratory Disease: No Hx Diabetes: No Hx Cardiac Disease: Yes Hx Renal Disease: Yes Hx Cirrhosis: No Hx Alcoholism: No Hx HIV/AIDS: No Hx Splenectomy or Spleen Trauma: No Other PMH: PMHx: congenital lack of R kidney, failing L kidney dialysis, HTN, chf, mitral valve prolapse w/replacement 07/2017, PNA. PSHx: chani, thoracentisis, av fistula in left distal forarm - Social History Smoking Status: Current every day smoker Constitutional: Initial Vital Signs Temperature (C) 37 C 10/02/18 23:48 Heart Rate 108 H 10/02/18 23:48 Respiratory Rate 20 10/02/18 23:48 Blood Pressure 167/113 H 10/02/18 23:48 O2 Sat (%) 94 10/02/18 23:48 O2 Delivery Mode Nasal Cannula O2 (L/minute) 2 Allergies/Adverse Reactions: No Known Allergies Allergy (Unverified 09/24/18 03:55) Home Medications: Medication Instructions Recorded Gabapentin [Neurontin 100 MG (*)] 100 mg PO HS 01/12/18 Albuterol [Proventil Inhaler HFA 2 puffs IH Q4HRS 09/14/18 (*)] Albuterol [Proventil Inhaler HFA 2 puffs IH Q4HRS PRN 09/14/18 (*)] Calcium Acetate [Phoslo (*)] 2,001 mg PO TIDMEAL 09/14/18 Calcium Carbonate [Tums 500MG (*)] 500 mg PO Q6HRS PRN 09/14/18 Cyclobenzaprine [Flexeril 10 MG 10 mg PO Q8HRS PRN 09/14/18 (*)] HYDROmorphone HCL [Dilaudid 2 mg 2 mg PO Q3HRS PRN 09/14/18 (*)] Nitroglycerin [Nitrostat 0.4 mg 0.4 mg SL Q5M PRN 09/14/18 (*)] Ondansetron Odt [Zofran Odt 4 mg 4 mg PO Q6HRS PRN 09/14/18 (*)] Sertraline HCl [Zoloft 100mg (*)] 200 mg PO DAILY 09/14/18 Sevelamer Carbonate [Renvela] 2,400 mg PO TIDMEAL 09/14/18 guaiFENesin [Mucinex 600 MG (*)] 600 mg PO Q12HRS PRN 09/14/18 traZODone [traZODONE 50MG (*)] 50 mg PO HS 09/14/18 ALPRAZolam [Alprazolam] 0.5 mg PO BID PRN #1 tablet 09/20/18 Acetaminophen [Tylenol 325mg (*)] 650 mg PO Q4HRS PRN tab 09/20/18 Aspirin [Aspirin 81mg (*)] 81 mg PO DAILY tab.chew 09/20/18 Ipratropium/Albuterol [Duoneb (*)] 3 ml IH Q6HRS deyvial 09/20/18 Metoprolol Tartrate [Lopressor 25 12.5 mg PO BID tab 09/20/18 mg (*)] Warfarin Sodium [Coumadin 3MG (*)] 6 mg PO DAILY@17 09/24/18 levOFLOXACIN [levAQUIN (*)] 500 mg PO Q2D #2 tab 09/30/18 valACYclovir [Valtrex (*)] 500 mg PO Q24H #3 tab 09/30/18 Medical Decision Making ED Course/Re-evaluation: Vital signs reviewed and show mild tachycardia with O2 sats 86-88% on room air. Placed on 2 L nasal cannula 0030: Labs reviewed. WBC 12 K, lactic acid 0.6, INR 3.9, H&H 6.7/20.0, sodium 134, potassium 6.0, BUN 107, creatinine 12.2 Chest x-ray my read shows mildly improved when compared to the prior x-ray of bilateral opacities. Given 1 g IV Cefepime Patient does not appear toxic and is not in respiratory distress. 0040: ED decision to consult hospitalist for admission. Spoke with Dr. Bedolla kindly agrees to admit patient for pneumonia and hypoxia. Patient will need his scheduled hemodialysis tomorrow. This patient was seen under the supervision of my secondary supervising physician. I evaluated care for this patient with attending. Discussed this patient with Dr. Bedolla. Differential Diagnosis: Adult fever including but not limited to viral syndromes including influenza, urinary tract infection, pneumonia and sepsis. - Data Points Laboratory Results: Laboratory Results 10/03/18 00:00 10/03/18 00:00 10/03/18 10/03/18 10/03/18 00:06 00:00 00:00 WBC RBC Hgb Hct MCV MCH MCHC RDW Plt Count MPV Neut % (Auto) Lymph % (Auto) [place] % (Auto) Eos % (Auto) Baso % (Auto) Nucleat RBC Rel Count Absolute Neuts (auto) Absolute Lymphs (auto) Absolute Monos (auto) Absolute Eos (auto) Absolute Basos (auto) Absolute Nucleated RBC Immature Gran % Immature Gran # Platelet Estimate Smear Review By PT 37.9 SEC H SEC (12.0-15.0) INR 3.90 H (0.83-1.16) APTT 83.2 SEC H SEC (23.0-38.0) VBG Lactic Acid 0.6 mmol/L L mmol/L (0.7-2.1) Sodium 134 mEq/L L mEq/L (135-145) Potassium 6.0 mEq/L H mEq/L (3.5-5.2) Chloride 100 mEq/L mEq/L (97-110) Carbon Dioxide 18 mEq/l L mEq/l (22-31) Anion Gap 16 mEq/L H mEq/L (6-14) BUN 107 mg/dL H* mg/dL (7-23) Creatinine 12.2 mg/dL H* mg/dL (0.7-1.3) Estimated GFR 5 Glucose 100 mg/dL mg/dL (70-100) Calcium 9.3 mg/dL mg/dL (8.5-10.4) Total Bilirubin 1.1 mg/dL mg/dL (0.1-1.4) Conjugated Bilirubin 1.0 mg/dL H mg/dL (0.0-0.5) Unconjugated Bilirubin 0.1 mg/dL mg/dL (0.0-1.1) AST 24 IU/L IU/L (17-59) ALT 27 IU/L IU/L (21-72) Alkaline Phosphatase 82 IU/L IU/L (38-126) NT-Pro-B Natriuret Pep 93463 pg/mL H pg/mL (0-125) Total Protein 6.0 g/dL L g/dL (6.3-8.2) Albumin 3.6 g/dL g/dL (3.5-5.0) 10/03/18 00:00 WBC 12.04 10^3/uL H 10^3/uL (3.80-9.50) RBC 2.13 10^6/uL L 10^6/uL (4.40-6.38) Hgb 6.7 g/dL L g/dL (13.7-17.5) Hct 20.1 % L % (40.0-51.0) MCV 94.4 fL fL (81.5-99.8) MCH 31.5 pg pg (27.9-34.1) MCHC 33.3 g/dL g/dL (32.4-36.7) RDW 16.3 % H % (11.5-15.2) Plt Count 185 10^3/uL 10^3/uL (150-400) MPV 9.6 fL fL (8.7-11.7) Neut % (Auto) 84.4 % H % (39.3-74.2) Lymph % (Auto) 9.6 % L % (15.0-45.0) [place] % (Auto) 3.8 % L % (4.5-13.0) Eos % (Auto) 0.9 % % (0.6-7.6) Baso % (Auto) 0.3 % % (0.3-1.7) Nucleat RBC Rel Count 0.0 % % (0.0-0.2) Absolute Neuts (auto) 10.15 10^3/uL H 10^3/uL (1.70-6.50) Absolute Lymphs (auto) 1.16 10^3/uL 10^3/uL (1.00-3.00) Absolute Monos (auto) 0.46 10^3/uL 10^3/uL (0.30-0.80) Absolute Eos (auto) 0.11 10^3/uL 10^3/uL (0.03-0.40) Absolute Basos (auto) 0.04 10^3/uL 10^3/uL (0.02-0.10) Absolute Nucleated RBC 0.00 10^3/uL 10^3/uL (0-0.01) Immature Gran % 1.0 % % (0.0-1.1) Immature Gran # 0.12 10^3/uL H 10^3/uL (0.00-0.10) Platelet Estimate Pending Smear Review By Pending PT INR APTT VBG Lactic Acid Sodium Potassium Chloride Carbon Dioxide Anion Gap BUN Creatinine Estimated GFR Glucose Calcium Total Bilirubin Conjugated Bilirubin Unconjugated Bilirubin AST ALT Alkaline Phosphatase NT-Pro-B Natriuret Pep Total Protein Albumin Departure - Departure Disposition: [facility] Acute Clinical Impression: Hypoxia, Hospital-acquired pneumonia Condition: Fair
[2018-10-03 00:07] LABS: PLATELET COUNT 185 10^3/uL (150-400)
[2018-10-03 00:17] LABS: INR 3.9 (0.83-1.16); PROTIME(PATIENT) 37.9 SEC (12.0-15.0)
[2018-10-03] MEDS ORDERED: CEFEPIME HCL 1 GM in NS 50 ML IV ONE (00:40)
[2018-10-03] MEDS ORDERED: HYDROmorphONE/DILAUDID 1 MG/ML INJ IVP ONE (01:12)
[2018-10-03] MEDS ORDERED: ACETAMINOPHEN 325 MG TAB PO PRN (01:51)
[2018-10-03] MEDS ORDERED: ALBUTEROL 3 ML DEYVIAL IH PRN (01:51)
[2018-10-03] MEDS ORDERED: ONDANSETRON 4 MG/2 ML VIAL IVP PRN (01:51)
[2018-10-03] MEDS ORDERED: ONDANSETRON DISINTEGRATING 4 MG TAB PO PRN (01:51)
[2018-10-03] MEDS ORDERED: CEPACOL LOZENGE PO PRN (03:27)
--- NOTE | 2018-10-03 04:22 | PDGENHP ---
History and Physical - Chief Complaint shortness of breath, cough, fever - History of Present Illness Source-patient provides history is a reliable historian. EMR was reviewed and case discussed with ED provider. HPI-this a very pleasant 27-year-old gentleman with a past medical history significant for ESRD on HD MWF with congenital unilateral kidney, HTN, CHF, history of mitral valve replacement on Coumadin who presents emergency department today from [facility] for [place] due to increased shortness of breath and hypoxia. Patient was just discharged on 09/30/2018 after he was found to have a post viral pneumonia. Patient was discharged on Levaquin and he took his last dose today. Due to his renal function the should have provided adequate coverage for 48 hr. Patient reports increased cough and dyspnea particularly on exertion. He also notes palpitations but no chest pain. Additionally patient reports that he has had increased sore throat. He has been exposed to multiple residence at [facility] for with upper respiratory type symptoms several of whom have "coughed in my face." Staff evaluated the patient found him to be saturating 70% on room air and with a fever of 101 F. Patient denies any lower extremity edema. He also notes that is INR has been therapeutic at 2.7 yesterday. Patient reports that his shingles is in recovery. Patient completed course of acyclovir. History Information - Allergies/Home Medication List Allergies/Adverse Reactions: No Known Allergies Allergy (Unverified 09/24/18 03:55) Home Medications: Gabapentin [Neurontin 100 MG (*)] 100 mg PO HS 01/12/18 [Last Taken 09/23/18] Albuterol [Proventil Inhaler HFA (*)] 2 puffs IH Q4HRS 09/14/18 [Last Taken 02:00] Albuterol [Proventil Inhaler HFA (*)] 2 puffs IH Q4HRS PRN 09/14/18 [Last Taken Unknown] Calcium Acetate [Phoslo (*)] 2,001 mg PO TIDMEAL 09/14/18 [Last Taken 09/23/18 18:00] Calcium Carbonate [Tums 500MG (*)] 500 mg PO Q6HRS PRN 09/14/18 [Last Taken Unknown] Cyclobenzaprine [Flexeril 10 MG (*)] 10 mg PO Q8HRS PRN 09/14/18 [Last Taken 07/30 21:00] HYDROmorphone HCL [Dilaudid 2 mg (*)] 2 mg PO Q3HRS PRN 09/14/18 [Last Taken 03:00] Nitroglycerin [Nitrostat 0.4 mg (*)] 0.4 mg SL Q5M PRN 09/14/18 [Last Taken Unknown] Ondansetron Odt [Zofran Odt 4 mg (*)] 4 mg PO Q6HRS PRN 09/14/18 [Last Taken Unknown] Sertraline HCl [Zoloft 100mg (*)] 200 mg PO DAILY 09/14/18 [Last Taken 09/23/18] Sevelamer Carbonate [Renvela] 2,400 mg PO TIDMEAL 09/14/18 [Last Taken 09/23/18 18:00] guaiFENesin [Mucinex 600 MG (*)] 600 mg PO Q12HRS PRN 09/14/18 [Last Taken 09/20 18:00] traZODone [traZODONE 50MG (*)] 50 mg PO HS 09/14/18 [Last Taken 09/23/18] Warfarin Sodium [Coumadin 3MG (*)] 6 mg PO DAILY@17 09/24/18 [Last Taken ] I have personally reviewed and updated: family history, medical history, social history, surgical history - Past Medical History CHF, ESRD Additional medical history: ESRD secondary to solitary kidney on HD [facility] (Dr Rawls), CHF, history of mitral valve prolapse s/p initial bioprosthetic MV complicated by MS now s/p mechanical MVR on chronic anticoagulation with Coumadin, anemia of chronic kidney disease with history of transfusion, chronic pain on opiates, insomnia - Surgical History Additional surgical history: LUE AVF creation, bioprosthetic MVR, failed MV annuloplasty (01/2018), mechanical MV replacement (01/2018), cholecystectomy - Family History Positive for: non-pertinent Additional family history: No family history of end-stage renal disease or valvular heart disease - Social History Smoking Status: Current every day smoker Alcohol Use: None Drug Use: None Additional social history: Lives at [facility]. Mother just recently 07/2018. No other family in area. Originally from [place]. Review of Systems Review of Systems: ROS: 10pt was reviewed & negative except for what was stated in HPI & below Constitutional: Reports: diaphoresis, fever. Denies: chills, weight loss EENMT: Reports: sore throat. Denies: nose congestion Cardiac: Reports: lightheadedness, palpitations. Denies: chest pain, edema Respiratory: Reports: cough, shortness of breath. Denies: wheezing Gastrointestinal: Reports: no symptoms. Denies: diarrhea, nausea Genitourinary: Reports: other (Anuric) Muscolosketal: Reports: muscle pain. Denies: joint pain Skin: Reports: rash (Patient reports shingles is nearly resolved.) Physical Exam Physical Exam: Temp Pulse Resp BP Pulse Ox 36.5 C 124 H 17 161/107 H 97 10/03/18 02:00 10/03/18 02:00 10/03/18 02:00 10/03/18 02:00 10/03/18 02:00 O2 (L/minute) 2 Constitutional: chronically ill appearing, other (Thin adult male is lying quietly in bed. He wakes easily to name.) Eyes: PERRL, anicteric sclera, EOMI, No scleral injection Ears, Nose, Mouth, Throat: dry mucous membranes, other (No nasal discharge.), No poor dentition Cardiovascular: systolic murmur, tachycardia, No edema Peripheral Pulses: 2+: dorsalis-pedis (R), dorsalis-pedis (L) Respiratory: no respiratory distress, no rales or rhonchi, clear to auscultation , No inspiratory crackles Gastrointestinal: normoactive bowel sounds, soft, non-tender abdomen, no palpable masses, No distension Genitourinary: no bladder tenderness Skin: warm, normal color, rash (Patient with scabbed lesions along the left lower abdomen extending laterally in dermatome fashion.), No abrasion Neurologic: AAOx3, sensation intact bilaterally, other (Grossly nonfocal.), No facial droop Psychiatric: not encephalopathic, thought process linear, anxious, depressed Lab Data & Imaging Review 10/03/18 05:22 10/03/18 00:00 WBC 12.04 10^3/uL (3.80-9.50) H 10/03/18 00:00 RBC 2.13 10^6/uL (4.40-6.38) L 10/03/18 00:00 Hgb 6.7 g/dL (13.7-17.5) L 10/03/18 00:00 Hct 20.1 % (40.0-51.0) L 10/03/18 00:00 MCV 94.4 fL (81.5-99.8) 10/03/18 00:00 MCH 31.5 pg (27.9-34.1) 10/03/18 00:00 MCHC 33.3 g/dL (32.4-36.7) 10/03/18 00:00 RDW 16.3 % (11.5-15.2) H 10/03/18 00:00 Plt Count 185 10^3/uL (150-400) 10/03/18 00:00 MPV 9.6 fL (8.7-11.7) 10/03/18 00:00 Neut % (Auto) 84.4 % (39.3-74.2) H 10/03/18 00:00 Lymph % (Auto) 9.6 % (15.0-45.0) L 10/03/18 00:00 [place] % (Auto) 3.8 % (4.5-13.0) L 10/03/18 00:00 Eos % (Auto) 0.9 % (0.6-7.6) 10/03/18 00:00 Baso % (Auto) 0.3 % (0.3-1.7) 10/03/18 00:00 Nucleat RBC Rel Count 0.0 % (0.0-0.2) 10/03/18 00:00 Absolute Neuts (auto) 10.15 10^3/uL (1.70-6.50) H 10/03/18 00:00 Absolute Lymphs (auto) 1.16 10^3/uL (1.00-3.00) 10/03/18 00:00 Absolute Monos (auto) 0.46 10^3/uL (0.30-0.80) 10/03/18 00:00 Absolute Eos (auto) 0.11 10^3/uL (0.03-0.40) 10/03/18 00:00 Absolute Basos (auto) 0.04 10^3/uL (0.02-0.10) 10/03/18 00:00 Absolute Nucleated RBC 0.00 10^3/uL (0-0.01) 10/03/18 00:00 Immature Gran % 1.0 % (0.0-1.1) 10/03/18 00:00 Immature Gran # 0.12 10^3/uL (0.00-0.10) H 10/03/18 00:00 Platelet Estimate ADEQUATE (ADEQ) 10/03/18 00:00 Microcytic Cells 1+ H 10/03/18 00:00 Oval Macrocytes 1+ H 10/03/18 00:00 PT 37.9 SEC (12.0-15.0) H 10/03/18 00:00 INR 3.90 (0.83-1.16) H 10/03/18 00:00 APTT 83.2 SEC (23.0-38.0) H 10/03/18 00:00 VBG Lactic Acid 0.6 mmol/L (0.7-2.1) L 10/03/18 00:06 Sodium 134 mEq/L (135-145) L 10/03/18 00:00 Potassium 6.0 mEq/L (3.5-5.2) H 10/03/18 00:00 Chloride 100 mEq/L (97-110) 10/03/18 00:00 Carbon Dioxide 18 mEq/l (22-31) L 10/03/18 00:00 Anion Gap 16 mEq/L (6-14) H 10/03/18 00:00 BUN 107 mg/dL (7-23) H* 10/03/18 00:00 Creatinine 12.2 mg/dL (0.7-1.3) H* 10/03/18 00:00 Estimated GFR 5 10/03/18 00:00 Glucose 100 mg/dL (70-100) 10/03/18 00:00 Calcium 9.3 mg/dL (8.5-10.4) 10/03/18 00:00 Total Bilirubin 1.1 mg/dL (0.1-1.4) 10/03/18 00:00 Conjugated Bilirubin 1.0 mg/dL (0.0-0.5) H 10/03/18 00:00 Unconjugated Bilirubin 0.1 mg/dL (0.0-1.1) 10/03/18 00:00 AST 24 IU/L (17-59) 10/03/18 00:00 ALT 27 IU/L (21-72) 10/03/18 00:00 Alkaline Phosphatase 82 IU/L (38-126) 10/03/18 00:00 NT-Pro-B Natriuret Pep 13413 pg/mL (0-125) H 10/03/18 00:00 Total Protein 6.0 g/dL (6.3-8.2) L 10/03/18 00:00 Albumin 3.6 g/dL (3.5-5.0) 10/03/18 00:00 Imaging Review: Chest x-ray reviewed showing increased cephalization and likely pulmonary edema. Visualized and Interpreted Chest x-ray results: Yes Assessment & Plan Assessment: This a very pleasant 27-year-old gentleman with a past medical history significant for ESRD on HD MWF with congenital unilateral kidney, HTN, CHF, history of mitral valve replacement on Coumadin who presents emergency department today from [facility] due to increased shortness of breath and hypoxia. #Hospital-acquired pneumonia (Acute) - patient completed course of Levaquin. He did develop a fever and hypoxia likely exacerbated by pulmonary edema and or progressive her new infection. Patient does note exposures at his nursing care facility. Will repeat a respiratory PCR. Patient's chest x-ray does appear to have increased pulmonary edema but at this point patient is not requiring any BiPAP or emergent dialysis. He nephrology consultation in the morning. Will give a dose of cefepime. Patient did complete a dose of Levaquin earlier in the day. #Hypoxia (Acute) - Improved with supplemental oxygen. Patient still symptomatic Kyleigh complaining of increased dyspnea with any kind of exertion. See plan as above. #Sepsis without organ dysfunction - blood cultures obtain. Lactate within normal limits. Blood pressure is acceptable. Not candidate for IV fluid bolus. Cefepime ordered. #Anemia of chronic kidney disease - -screening patient. Blood pressures are elevated at this time does not require emergent transfusion. Defer to Nephrology transfusing with dialysis. # hyperkalemia - not currently requiring emergent dialysis. Repeat BMP in the morning and treat if increases. # chronic anticoagulation with Coumadin - INR is slightly supratherapeutic. Patient without any evidence of active bleeding. H&H is decline from last hospitalization. Type and screen. Transfuse with dialysis as per Nephrology. #hx of shingles on the left lower abdomen status post course of Valtrex. FEN - saline lock IV. monitor electrolytes in AM labs. PPX - SCDs. On Coumadin with therapeutic INR. COR - FULL Dispo - Patient admitted to inpatient status on med/surg given severity of multiple issues anticipate > 48 hours.
[2018-10-03 05:59] LABS: PLATELET COUNT 142 10^3/uL (150-400)
[2018-10-03] MEDS: SODIUM CL NASAL GEL 14.1 GM TUBE TP PRN (09:16)
--- NOTE | 2018-10-03 09:56 | SOAPPROG ---
SOAP Progress Note Assessment/Plan: Assessment/Plan: ESRD: has HD MWF at [facility], did not get HD on Saturday because they were very delayed in hooking him up. - Will do HD today. - I discussed importance of not missing treatments. Hyperkalemia: will modulate on HD. Anemia: Hgb again low, was just transfused last hospitalization. Noted that he is having ongoing nosebleeds. - Will transfuse 2 units PRBCs today. Metabolic acidosis: will modulate on HD. HTN: continue home meds. Subjective: Pt was just discharged a few days ago after being treated for pneumonia, came back with complaints of dyspnea, low grade temps, chills, and night sweats that are ongoing. He states he is at his dry weight. He went to dialysis on Saturday but they kept him waiting for over 2 hours to be hooked up, so he did not receive dialysis that day. Objective: Vital Signs Temp Pulse Resp BP Pulse Ox 36.6 C 68 16 151/86 H 99 10/03/18 06:19 10/03/18 06:19 10/03/18 06:19 10/03/18 06:19 10/03/18 06:19 Microbiology 10/03/18 02:32 Respiratory Panel (PCR) - Final Nasal, Sinus - Swab No Organism Detected By Pcr Laboratory Results 10/03/18 05:22 10/03/18 05:22 10/02/18 10/03/18 10/04/18 05:59 05:59 05:59 Intake Total 350 Balance 350 PT 37.9 SEC (12.0-15.0) H 10/03/18 00:00 INR 3.90 (0.83-1.16) H 10/03/18 00:00 General: alert and oriented, no acute distress Eyes: EOMI, PERRL OP: Clear CV: RRR Resp: nonlabored respirations on oxymask, CTAB, no crackles Abd: Soft, NT/ND Ext: no edema BLE Neuro: CN II-XII Grossly intact, no asterixis Psych: cooperative, tearful Access: LUE AVF ICD10 Worksheet Patient Problems: Problems Problem Status Onset Hospital-acquired pneumonia Acute Hypoxia Acute Acute blood loss anemia Acute Acute bronchitis Acute Bilateral pneumonia Acute Chest pain Acute Coagulopathy Acute Dyspnea Acute ESRD on hemodialysis Acute Elevated troponin Acute Fever Acute Headache Acute Pneumonia Acute Postoperative pneumothorax Acute Prosthetic mitral valve stenosis Acute Pulmonary edema Acute S/P mitral valve replacement with metallic valve Acute ~02/07/18 Shortness of breath Acute Tachycardia Acute Anemia Chronic CHF (congestive heart failure) Chronic ESRD (end stage renal disease) Chronic Hypertensive urgency Chronic Severe mitral regurgitation Chronic
[2018-10-03] MEDS: LORazepam 0.5 MG TAB PO PRN ×2 (09:58→18:29)
--- NOTE | 2018-10-03 12:43 | ASMTCMCOM ---
CM Note CM Note Notes: Pt is a 27 y/o man admitted for CAP and hypoxia. Pt is well known to [facility]. Pt is currently getting rehab at [facility]. Darwin from [facility] stopped by and visited w/ pt. Updates sent to [facility]. CM to follow. Plan: [facility] Date Signed: 10/03/2018 12:42 PM Electronically Signed By:ELIDIA Francisco
--- NOTE | 2018-10-03 14:05 | PDMN ---
Medical Necessity Medical necessity: Pt meets IP criteria per & MOE [id number]; est los >2 mn for eval/tx of hospital-acquired pneumonia, sepsis w/tachycardia & acute hypoxia; admit for further workup/monitoring & supportive care; hx recent hospitalization for pneumonia, ESRD on HD, CHF, MV replacement; per H&P & order 10/03/18
[2018-10-03] MEDS ORDERED: ALBUTEROL 60 PUFFS/8 GM MDI IH PRN (14:57)
[2018-10-03] MEDS ORDERED: ALPRAZolam 0.5 MG TAB PO PRN (14:57)
[2018-10-03] MEDS ORDERED: CALCIUM CARBONATE 500 MG CHEWABLE TAB PO PRN (14:57)
[2018-10-03] MEDS: HYDROmorphONE/DILAUDID 2 MG TAB PO PRN ×3 (15:16→21:11)
[2018-10-03] MEDS: Sevelamer Carbonate [Renvela] 2,400 MG PO SCH (17:14)
[2018-10-03] MEDS: IPRATROPIUM/ALBUTEROL 3 ML DEYVIAL IH SCH ×2 (17:17→21:32)
[2018-10-03] MEDS: CALCIUM ACETATE 667 MG CAP PO SCH (17:34)
--- NOTE | 2018-10-03 18:13 | HOSPPROG ---
Hospitalist Progress Note Assessment/Plan: 27-year-old gentleman with a past medical history significant for ESRD on HD MWF with congenital unilateral kidney, HTN, CHF, history of mitral valve replacement on Coumadin who presents emergency department today from [facility] due to increased shortness of breath and hypoxia. Acute hypoxemic respiratory failure- patient does not typically require oxygen. He was just here, twice, for presumed pneumonia. He completed a course of Levaquin. Chest x-ray on this admission shows bilateral infiltrates. He does meet criteria for healthcare associated pneumonia. His BNP was also severely elevated at 39,000 nine thousand but he did just have an echocardiogram September 18 for evaluation of his valves. -could be cardiac etiology as he is not improved despite antibiotics -repeat echo in the morning Hospital-acquired pneumonia - patient completed course of Levaquin. Will repeat a respiratory PCR. Patient's chest x-ray does appear to have increased pulmonary edema but at this point patient is not requiring any BiPAP or emergent dialysis. Has nephrology consultation in the morning. Will give a dose of cefepime. Patient did complete a dose of Levaquin earlier in the day. -continue cefepime for now -repeat echo Sepsis- not meeting sepsis criteria currently. Leukocytosis resolved. He is not tachycardic or hypotensive Blood cultures obtained. Lactate within normal limits. Started on cefepime on admission. Also severely anemic ESRD on HD- normally dialyzes Saturday. Taken to dialysis today. Nephrology following -continue renal meds, PhosLo, Nephro-Cynthia, Tums, Renvela Anemia of chronic kidney disease -H&H down to 5.7 and 16 on admission. Received 2 units during dialysis. Patient noted that his bowel movement was black later this evening. -repeat H&H in the morning -fecal occult ordered hyperkalemia - resolved with dialysis. chronic anticoagulation with Coumadin - INR is slightly supratherapeutic. Complained of black bowel movement this evening. This is the 1st time that he has ever noticed this. Asked nurses to obtain a fecal occult. History of mitral valve replacement- follows with Dr. Farr and Dr. Low. On Coumadin with INR supratherapeutic today. Holding Coumadin in setting of possible GI bleed and severe anemia. Will repeat INR in morning Hypertension- continue Lopressor Chronic pain- continue Dilaudid 2 mg Anxiety- continue Ativan p.r.n. hx of shingles on the left lower abdomen status post course of Valtrex. FEN - saline lock IV. monitor electrolytes in AM labs. PPX - SCDs. On Coumadin with therapeutic INR. COR - FULL Dispo - Patient admitted to inpatient status on med/surg given severity of multiple issues anticipate > 48 hours. Subjective: Still winded with any exertion. Objective: Vital Signs Temp Pulse Resp BP Pulse Ox 36.9 C 86 20 163/107 H 99 10/03/18 12:00 10/03/18 12:00 10/03/18 12:00 10/03/18 12:00 10/03/18 12:00 Microbiology 10/03/18 02:32 Respiratory Panel (PCR) - Final Nasal, Sinus - Swab No Organism Detected By Pcr Laboratory Results 10/03/18 05:22 10/03/18 05:22 10/02/18 10/03/18 10/04/18 05:59 05:59 05:59 Intake Total 350 1200 Output Total 30 Balance 350 1170 PT 37.9 SEC (12.0-15.0) H 10/03/18 00:00 INR 3.90 (0.83-1.16) H 10/03/18 00:00 - Physical Exam Constitutional: no apparent distress, appears nourished, not in pain Eyes: PERRL, anicteric sclera, EOMI Ears, Nose, Mouth, Throat: moist mucous membranes, hearing normal, ears appear normal, no oral mucosal ulcers Cardiovascular: regular rate and rhythym, no murmur, rub, or gallop Respiratory: no respiratory distress, no rales or rhonchi, clear to auscultation Gastrointestinal: normoactive bowel sounds, soft, non-tender abdomen, no palpable masses Genitourinary: no bladder fullness, no bladder tenderness, no renal bruits Skin: no rashes or abrasions, no fluctuance, no induration Musculoskeletal: full muscle strength, no muscle tenderness, normal joint ROM Neurologic: AAOx3, sensation intact bilaterally Psychiatric: interacting appropriately, not anxious, not encephalopathic, thought process linear Lymph, Heme, Immunologic: no cervical LAD, no supraclavicular LAD ICD10 Worksheet Patient Problems: Problems Problem Status Onset Hospital-acquired pneumonia Acute Hypoxia Acute Acute blood loss anemia Acute Acute bronchitis Acute Bilateral pneumonia Acute Chest pain Acute Coagulopathy Acute Dyspnea Acute ESRD on hemodialysis Acute Elevated troponin Acute Fever Acute Headache Acute Pneumonia Acute Postoperative pneumothorax Acute Prosthetic mitral valve stenosis Acute Pulmonary edema Acute S/P mitral valve replacement with metallic valve Acute ~02/07/18 Shortness of breath Acute Tachycardia Acute Anemia Chronic CHF (congestive heart failure) Chronic ESRD (end stage renal disease) Chronic Hypertensive urgency Chronic Severe mitral regurgitation Chronic
[2018-10-03] MEDS: hydrALAZINE 10 MG TAB PO PRN (18:30)
[2018-10-03] MEDS: METOPROLOL TARTRATE 25 MG TAB PO SCH (21:10)
[2018-10-03] MEDS: GABAPENTIN 100 MG CAP PO SCH (21:11)
[2018-10-03] MEDS: CYCLOBENZAPRINE 10 MG TAB PO PRN (21:12)
[2018-10-03] MEDS: traZODone 50 MG TAB PO SCH (21:12)
[2018-10-03] MEDS: CEFEPIME HCL 1 GM in NS 50 ML IV SCH (23:23)
[2018-10-04] MEDS: IPRATROPIUM/ALBUTEROL 3 ML DEYVIAL IH SCH ×4 (04:45→22:30)
[2018-10-04] MEDS: LORazepam 0.5 MG TAB PO PRN ×2 (07:29→16:23)
[2018-10-04] MEDS: HYDROmorphONE/DILAUDID 2 MG TAB PO PRN ×4 (07:29→22:24)
[2018-10-04] MEDS: SERTRALINE HCL 100 MG TAB PO SCH (07:30)
[2018-10-04] MEDS: valACYclovir 500 MG TAB PO SCH (07:30)
[2018-10-04] MEDS: METOPROLOL TARTRATE 25 MG TAB PO SCH ×2 (07:30→22:25)
[2018-10-04] MEDS: ASPIRIN 81 MG CHEWABLE TAB PO SCH (07:30)
[2018-10-04] MEDS: SODIUM CL NASAL GEL 14.1 GM TUBE TP PRN (07:40)
[2018-10-04] MEDS: hydrALAZINE 10 MG TAB PO PRN ×3 (07:43→22:24)
[2018-10-04] MEDS: Sevelamer Carbonate [Renvela] 2,400 MG PO SCH ×3 (08:34→18:21)
[2018-10-04] MEDS: CALCIUM ACETATE 667 MG CAP PO SCH ×3 (08:34→19:40)
[2018-10-04 10:49] LABS: INR 3.39 (0.83-1.16)
[2018-10-04] MEDS: ALPRAZolam 0.25 MG TAB PO PRN ×2 (11:11→22:31)
--- NOTE | 2018-10-04 13:10 | SOAPPROG ---
SOAP Progress Note Assessment/Plan: Assessment/Plan: ESRD: has HD MWF at [facility], did not get HD on Saturday because they were very delayed in hooking him up. - HD done yesterday. - Next HD on Saturday. - I have discussed importance of not missing treatments. Hyperkalemia: improved with HD. Pt wants regular diet, knows to avoid high potassium foods. Anemia: Hgb again low, was just transfused last hospitalization. Noted that he is having ongoing nosebleeds. Pt transfused again yesterday, will continue to monitor. Metabolic acidosis: improved with HD. HTN: continue home meds. Subjective: Pt had chest pain while on HD yesterday, he notes that he is still having chest pain and dyspnea. Objective: Vital Signs Temp Pulse Resp BP Pulse Ox 36.8 C 82 18 151/81 H 97 10/04/18 12:00 10/04/18 12:00 10/04/18 12:00 10/04/18 12:00 10/04/18 12:00 Microbiology 10/03/18 02:32 Respiratory Panel (PCR) - Final Nasal, Sinus - Swab No Organism Detected By Pcr Laboratory Results 10/04/18 04:22 10/04/18 04:22 10/03/18 10/04/18 10/05/18 05:59 05:59 05:59 Intake Total 350 1500 Output Total 1530 Balance 350 -30 PT 34.0 SEC (12.0-15.0) H 10/04/18 10:23 INR 3.39 (0.83-1.16) H 10/04/18 10:23 General: alert and oriented, no acute distress Eyes: EOMI, PERRL OP: Clear CV: RRR Resp: nonlabored respirations on oxymask, CTAB Abd: soft, NT/ND Ext: no edema BLE Neuro: CN II-XII grossly intact ICD10 Worksheet Patient Problems: Problems Problem Status Onset Hospital-acquired pneumonia Acute Hypoxia Acute Acute blood loss anemia Acute Acute bronchitis Acute Bilateral pneumonia Acute Chest pain Acute Coagulopathy Acute Dyspnea Acute ESRD on hemodialysis Acute Elevated troponin Acute Fever Acute Headache Acute Pneumonia Acute Postoperative pneumothorax Acute Prosthetic mitral valve stenosis Acute Pulmonary edema Acute S/P mitral valve replacement with metallic valve Acute ~02/07/18 Shortness of breath Acute Tachycardia Acute Anemia Chronic CHF (congestive heart failure) Chronic ESRD (end stage renal disease) Chronic Hypertensive urgency Chronic Severe mitral regurgitation Chronic
--- NOTE | 2018-10-04 14:21 | HOSPPROG ---
Hospitalist Progress Note Assessment/Plan: 27-year-old gentleman with a past medical history significant for ESRD on HD MWF with congenital unilateral kidney, HTN, CHF, history of mitral valve replacement on Coumadin who presents emergency department today from [facility] due to increased shortness of breath and hypoxia. Acute hypoxemic respiratory failure- patient does not typically require oxygen. He was just here, twice, for presumed pneumonia. He completed a course of Levaquin. Chest x-ray on this admission shows bilateral infiltrates. He does meet criteria for healthcare associated pneumonia. His BNP was also severely elevated at 39,000 nine thousand but he did just have an echocardiogram September 18 for evaluation of his valves. -check procal -check TTE -continue cefepime -oxygen PRN, inhalers PRN Hospital-acquired pneumonia - patient completed course of Levaquin. Will repeat a respiratory PCR. Patient's chest x-ray does appear to have increased pulmonary edema but at this point patient is not requiring any BiPAP or emergent dialysis. Has nephrology consultation in the morning. Will give a dose of cefepime. Patient did complete a dose of Levaquin earlier in the day. -continue cefepime for now Sepsis- not meeting sepsis criteria currently. Leukocytosis resolved. He is not tachycardic or hypotensive Blood cultures obtained. Lactate within normal limits. Started on cefepime on admission. Also severely anemic ESRD on HD- normally dialyzes Saturday. Taken to dialysis yesterday. Nephrology following -continue renal meds, PhosLo, Nephro-Cynthia, Tums, Renvela Anemia of chronic kidney disease -H&H down to 5.7 and 16 on admission. Received 2 units during dialysis. Patient noted that his bowel movement was black later this evening. -repeat H&H in the morning -fecal occult ordered but not collected hyperkalemia - resolved with dialysis. chronic anticoagulation with Coumadin - INR is slightly supratherapeutic. GOAL INR 2.5-3.5 Complained of black bowel movement this evening. Having lots of bloody noses. This is the 1st time that he has ever noticed this. Asked nurses to obtain a fecal occult. History of mitral valve replacement- follows with Dr. Farr and Dr. Low. On Coumadin with INR supratherapeutic today. Holding Coumadin in setting of possible GI bleed and severe anemia. -check TTE -monitor INR -cont coumadin Hypertension- continue home medications Chronic pain- continue Dilaudid 2 mg Anxiety- continue Ativan p.r.n. hx of shingles on the left lower abdomen status post course of Valtrex. FEN - saline lock IV. monitor electrolytes in AM labs. PPX - SCDs. On Coumadin with therapeutic INR. COR - FULL Dispo - cont inpatient care Objective: Vital Signs Temp Pulse Resp BP Pulse Ox 36.8 C 82 18 151/81 H 97 10/04/18 12:00 10/04/18 12:00 10/04/18 12:00 10/04/18 12:00 10/04/18 12:00 Microbiology 10/03/18 02:32 Respiratory Panel (PCR) - Final Nasal, Sinus - Swab No Organism Detected By Pcr Laboratory Results 10/04/18 04:22 10/04/18 04:22 10/03/18 10/04/18 10/05/18 05:59 05:59 05:59 Intake Total 350 1500 Output Total 1530 Balance 350 -30 PT 34.0 SEC (12.0-15.0) H 10/04/18 10:23 INR 3.39 (0.83-1.16) H 10/04/18 10:23 - Physical Exam Constitutional: no apparent distress, appears nourished, not in pain Eyes: PERRL, anicteric sclera, EOMI Ears, Nose, Mouth, Throat: moist mucous membranes, hearing normal, ears appear normal, no oral mucosal ulcers Cardiovascular: regular rate and rhythym, no murmur, rub, or gallop Respiratory: no respiratory distress, no rales or rhonchi, clear to auscultation Gastrointestinal: normoactive bowel sounds, soft, non-tender abdomen, no palpable masses Genitourinary: no bladder fullness, no bladder tenderness, no renal bruits Skin: no rashes or abrasions, no fluctuance, no induration Musculoskeletal: full muscle strength, no muscle tenderness, normal joint ROM Neurologic: AAOx3, sensation intact bilaterally Psychiatric: interacting appropriately, not anxious, not encephalopathic, thought process linear Lymph, Heme, Immunologic: no cervical LAD, no supraclavicular LAD ICD10 Worksheet Patient Problems: Problems Problem Status Onset Hospital-acquired pneumonia Acute Hypoxia Acute Acute blood loss anemia Acute Acute bronchitis Acute Bilateral pneumonia Acute Chest pain Acute Coagulopathy Acute Dyspnea Acute ESRD on hemodialysis Acute Elevated troponin Acute Fever Acute Headache Acute Pneumonia Acute Postoperative pneumothorax Acute Prosthetic mitral valve stenosis Acute Pulmonary edema Acute S/P mitral valve replacement with metallic valve Acute ~02/07/18 Shortness of breath Acute Tachycardia Acute Anemia Chronic CHF (congestive heart failure) Chronic ESRD (end stage renal disease) Chronic Hypertensive urgency Chronic Severe mitral regurgitation Chronic
--- NOTE | 2018-10-04 15:36 | ECHO ---
[email or web address] [address] [address] Main: [phone] Fax: Transthoracic Echocardiogram Name: CONRADO ESPINOSA MR#: [id number] Study Date: 10/04/2018 Study Time: 02:03 PM Date of : 1990 Age: 27 year(s) Height: 175.3 cm (69 in.) Weight: 68.49 kg (151 lb.) BSA: 1.83 m2 Gender: Male Examination: Echo Indication: Acute SOB Image Quality: Contrast: Requested by: Pool Truong BP: 151 mmHg/81 mmHg Heart Rate: 86 bpm Rhythm: Normal sinus rhythm Indication: Acute SOB Procedure Staff Clothes Drier Assembler: Andrea Melchor RDCS Reading Physician: Darwin Ibarra MD Requesting Provider: Conclusions: 1)Normal LV size and systolic function with a LVEF of 60%. 2)Mildly reduced RV systolic function. 3)Bi-atrial enlargement noted. 4)Mechanical MVR with peak and mean gradients of 30 and 14mmHg respectively and no MR. 5)Severe TR with estimated PAS 82mmHg consistent with severe pulmonary HTN. 6)No pericardial effusion noted. Measurements: Chambers Valvular Assessment AV/MV Valvular Assessment TV/PV Normal Normal Normal Name Value Range Name Value Range Name Value Range Ao Tiffanie (MM): 2.6 cm (2.2 cm-3.7 AV Vmax: 1.87 m/s (1 m/s-1.7 TR Vmax: 4.24 mm/s ( - ) cm) m/s) TR PGmax: 72 mmHg ( - ) IVSd (2D): 0.8 cm (0.6 cm-1.1 AV maxP mmHg ( - ) syst. PAP: 82 mmHg ( - ) cm) AV meanP mmHg ( - ) LVDd (2D): 4.8 cm (4.2 cm-5.9 ANTOINE (VTI): 2.1 cm ( - ) cm) MV E Vmax: 2.36 m/s ( - ) LVDs (2D): 2.6 cm (2.1 cm-4 MV A Vmax: 1.29 m/s ( - ) cm) MV E/A: 1.83 ( - ) LVPWd (2D): 1.0 cm (0.6 cm-1 cm) MV meanP mmHg ( - ) LVOTd 2.1 cm 2.1 cm mm MVA (Vmax): 1.3 m/s ( - ) LVEF (2D): 60 (>=54 %) Continued Measurements: Chambers Valvular Assessment AV/MV Valvular Assessment TV/PV Name Value Name Value Name Value LADs Lon.1 cm MV VTI: 58.80 cm CVP (est.): 10 mmHg LA Area: 19.4 cm2 Patient: CONRADO ESPINOSA Study Date: 10/04/2018 Page 1 of 2 02:03 PM LA Volume: 64 ml LA Volume Index: 35.0 ml/m2 TAPSE: 1.8 cm Findings: Left Ventricle: Normal size left ventricle. No LV hypertrophy. Normal global systolic LV function. EF is 60 %. Normal diastolic LV function. Right Ventricle: Normal size right ventricle. Mildly reduced RV function. Flattened interventricular septum consistent with right ventricular pressure and/or volume overload free wall. Left Atrium: The left atrium is mildly dilated. Right Atrium: The right atrium is borderline dilated. Mitral Valve: A mechanical mitral valve prosthesis is in place.. The mitral valve mean PG is 14 mmHg. A SANJAY / TTE was performed 09/18/18 and the mean MV gradient was 18 mmHg. . Aortic Valve: The aortic valve is normal in appearance and function. There is no significant aortic valve regurgitation. Tricuspid Valve: The tricuspid valve is normal in appearance and function. Severe tricuspid regurgitation is present. The pulmonary artery pressure is severely increased. Pulmonic Valve: The pulmonic valve is normal in appearance and function. Aorta: The aorta is normal. Pericardium: No pericardial effusion. (No Signature Object) Patient: CONRADO ESPINOSA Study Date: 10/04/2018 Page 2 of 2 02:03 PM [id number]
[2018-10-04] MEDS ORDERED: WARFARIN SODIUM 4 MG TAB PO ONE (16:00)
[2018-10-04] MEDS ORDERED: [UNRECOGNIZED DRUG - REMARK] MISC ONE (16:00)
[2018-10-04] MEDS: HYDROmorphONE/DILAUDID 1 MG/ML INJ IVP PRN ×2 (18:16→23:20)
[2018-10-04] MEDS ORDERED: KETAMINE 7 MG in SYRINGE 0 ML IVP ONE (19:10)
[2018-10-04] MEDS: traZODone 50 MG TAB PO SCH (22:25)
[2018-10-04] MEDS: GABAPENTIN 100 MG CAP PO SCH (22:25)
[2018-10-04] MEDS: CYCLOBENZAPRINE 10 MG TAB PO PRN (22:25)
[2018-10-05] MEDS: HYDROmorphONE/DILAUDID 2 MG TAB PO PRN ×5 (03:41→21:50)
[2018-10-05] MEDS: LORazepam 0.5 MG TAB PO PRN ×2 (03:42→14:57)
[2018-10-05 04:32] LABS: PLATELET COUNT 201 10^3/uL (150-400)
[2018-10-05 04:53] LABS: INR 2.94 (0.83-1.16); PROTIME(PATIENT) 30.5 SEC (12.0-15.0)
[2018-10-05] MEDS: IPRATROPIUM/ALBUTEROL 3 ML DEYVIAL IH SCH (05:04)
[2018-10-05] MEDS: HYDROmorphONE/DILAUDID 1 MG/ML INJ IVP PRN ×3 (05:18→16:49)
[2018-10-05] MEDS: hydrALAZINE 10 MG TAB PO PRN ×2 (05:19→13:09)
[2018-10-05] MEDS: Sevelamer Carbonate [Renvela] 2,400 MG PO SCH ×2 (08:52→11:56)
[2018-10-05] MEDS: METOPROLOL TARTRATE 25 MG TAB PO SCH ×2 (08:59→21:50)
[2018-10-05] MEDS: ALPRAZolam 0.25 MG TAB PO PRN ×2 (08:59→21:49)
[2018-10-05] MEDS: valACYclovir 500 MG TAB PO SCH (09:41)
[2018-10-05] MEDS: ASPIRIN 81 MG CHEWABLE TAB PO SCH (09:41)
[2018-10-05] MEDS: SERTRALINE HCL 100 MG TAB PO SCH (09:41)
[2018-10-05] MEDS: CALCIUM ACETATE 667 MG CAP PO SCH ×3 (09:41→21:49)
--- NOTE | 2018-10-05 10:35 | SOAPPROG ---
SOAP Progress Note Assessment/Plan: Assessment: 1. ESRD Typically MWF. 2. Hyperkalemia Will run for brief run today. Assess for tomorrow 3. Anemia Better after transfusion 4. Dyspnea Better after UF Plan: 10/05/18 10:32 Subjective: tearful at times relating to overall condition Objective: Vital Signs Temp Pulse Resp BP Pulse Ox 36.9 C 98 18 166/107 H 93 10/05/18 08:00 10/05/18 08:00 10/05/18 08:00 10/05/18 08:00 10/05/18 08:00 Laboratory Results 10/05/18 03:40 10/05/18 03:40 10/04/18 10/05/18 10/06/18 05:59 05:59 05:59 Intake Total 1500 1635 Output Total 1530 Balance -30 1635 PT 30.5 SEC (12.0-15.0) H 10/05/18 03:40 INR 2.94 (0.83-1.16) H 10/05/18 03:40 Physical Exam - Physical Exam General Appearance: no apparent distress Respiratory: lungs clear Cardiac/Chest: regular rate, rhythm, systolic murmur Extremities: normal inspection (access site ok) ICD10 Worksheet Patient Problems: Problems Problem Status Onset Hospital-acquired pneumonia Acute Hypoxia Acute Acute blood loss anemia Acute Acute bronchitis Acute Bilateral pneumonia Acute Chest pain Acute Coagulopathy Acute Dyspnea Acute ESRD on hemodialysis Acute Elevated troponin Acute Fever Acute Headache Acute Pneumonia Acute Postoperative pneumothorax Acute Prosthetic mitral valve stenosis Acute Pulmonary edema Acute S/P mitral valve replacement with metallic valve Acute ~02/07/18 Shortness of breath Acute Tachycardia Acute Anemia Chronic CHF (congestive heart failure) Chronic ESRD (end stage renal disease) Chronic Hypertensive urgency Chronic Severe mitral regurgitation Chronic
[2018-10-05] MEDS ORDERED: LIDOCAINE 4%/MENTHOL 1% PATCH TD SCH (12:15)
[2018-10-05] MEDS ORDERED: CEFEPIME HCL 1 GM in NS 50 ML IV ONE (14:00)
--- NOTE | 2018-10-05 14:58 | ASMTCMCOM ---
CM Note CM Note Notes: CM met with pt. RN reported that pt was feeling down and tired. Pt reports that he is frustrated that he keeps coming back to the hospital and wants to feel better. Pt reports he feels like talking with someone might help and to have additional supports as he navigates his complex medical condition would be appreciated. ordered Palliative care consult today as well as Yeni Mullins consult for supportive services. CM to follow. Plan: koffi Trujillo once medically stable. Date Signed: 10/05/2018 02:58 PM Electronically Signed By:ELIDIA Sosa
[2018-10-05] MEDS ORDERED: WARFARIN SODIUM 4 MG TAB PO ONE (16:00)
--- NOTE | 2018-10-05 16:40 | HOSPPROG ---
Hospitalist Progress Note Assessment/Plan: 27-year-old gentleman with a past medical history significant for ESRD on HD MWF with congenital unilateral kidney, HTN, CHF, history of mitral valve replacement on Coumadin who presents emergency department from [facility] due to increased shortness of breath and hypoxia. Acute hypoxemic respiratory failure- He was just here, twice, for presumed pneumonia. He completed a course of Levaquin. Chest x-ray on this admission shows bilateral infiltrates. He does meet criteria for healthcare associated pneumonia. His BNP was also severely elevated at 39,000 nine thousand but he did just have an echocardiogram September 18 for evaluation of his valves. On auscultation of his lungs he sounds clear. I suspect that there may him may be more than 1 process contributing to his hypoxemia and dyspnea on exertion. Repeat echo showed substantially elevated right atrial systolic pressure is consistent with the diagnosis of pulmonary hypertension. I suspect that the patient will chronically need oxygen particularly with ambulation. I discussed the case with Pulmonary Medicine who thinks that the patient's pulmonary hypertension is not the type that is amenable to any kind of medical therapy and his best course of treatment would be compliance with hemodialysis. -check CT in am to ensure no PE -continue cefepime -oxygen PRN, inhalers PRN Hospital-acquired pneumonia - patient completed course of Levaquin. Will repeat a respiratory PCR. Patient's chest x-ray does appear to have increased pulmonary edema but at this point patient is not requiring any BiPAP or emergent dialysis. Has nephrology consultation in the morning. Will give a dose of cefepime. Patient did complete a dose of Levaquin earlier in the day. -continue cefepime for now Sepsis-Resolved. Leukocytosis resolved. He is not tachycardic or hypotensive Blood cultures obtained. Lactate within normal limits. Started on cefepime on admission. Also severely anemic ESRD on HD- normally dialyzes Saturday. Taken to dialysis yesterday. Nephrology following -continue renal meds, PhosLo, Nephro-Cynthia, Tums, Renvela Anemia of chronic kidney disease -H&H down to 5.7 and 16 on admission. Received 2 units during dialysis. -repeat H&H in the morning -fecal occult ordered but not collected hyperkalemia - resolved with dialysis. chronic anticoagulation with Coumadin - INR is slightly supratherapeutic. GOAL INR 2.5-3.5 Complained of black bowel movement this evening. Having lots of bloody noses. This is the 1st time that he has ever noticed this. Asked nurses to obtain a fecal occult. History of mitral valve replacement- follows with Dr. Farr and Dr. Low. On Coumadin with INR supratherapeutic today. Holding Coumadin in setting of possible GI bleed and severe anemia. -check TTE -monitor INR -cont coumadin Hypertension- continue home medications Chronic pain- continue Dilaudid 2 mg Anxiety- continue Ativan p.r.n. hx of shingles on the left lower abdomen status post course of Valtrex. FEN - saline lock IV. monitor electrolytes in AM labs. PPX - SCDs. On Coumadin with therapeutic INR. COR - FULL Dispo - cont inpatient care Objective: Vital Signs Temp Pulse Resp BP Pulse Ox 36.9 C 86 17 166/107 H 100 10/05/18 08:00 10/05/18 15:57 10/05/18 15:57 10/05/18 08:00 10/05/18 15:57 Laboratory Results 10/05/18 03:40 10/05/18 03:40 10/04/18 10/05/18 10/06/18 05:59 05:59 05:59 Intake Total 1500 1635 Output Total 1530 Balance -30 1635 PT 30.5 SEC (12.0-15.0) H 10/05/18 03:40 INR 2.94 (0.83-1.16) H 10/05/18 03:40 ICD10 Worksheet Patient Problems: Problems Problem Status Onset Hospital-acquired pneumonia Acute Hypoxia Acute Acute blood loss anemia Acute Acute bronchitis Acute Bilateral pneumonia Acute Chest pain Acute Coagulopathy Acute Dyspnea Acute ESRD on hemodialysis Acute Elevated troponin Acute Fever Acute Headache Acute Pneumonia Acute Postoperative pneumothorax Acute Prosthetic mitral valve stenosis Acute Pulmonary edema Acute S/P mitral valve replacement with metallic valve Acute ~02/07/18 Shortness of breath Acute Tachycardia Acute Anemia Chronic CHF (congestive heart failure) Chronic ESRD (end stage renal disease) Chronic Hypertensive urgency Chronic Severe mitral regurgitation Chronic
--- NOTE | 2018-10-05 18:59 | GCON ---
[f rep st] CONSULTATION PULMONARY CONSULTATION NOTE DATE OF CONSULTATION: 10/05/2018 HPI: This patient is a 27-year-old male with a very complex past medical history who was admitted on 10/03/18, for possible recurrent pneumonia. He also has pulmonary hypertension on echocardiogram, a nd I was asked to address this issue as well as recurrent hypoxemia. In addition, his medical histor y is complicated by mitral stenosis requiring mitral valve repairs, annuloplasty, and a 2nd repair in January of 2018. Prior to that, he apparently had had multiple admissions to the hospital for congesti ve heart failure symptoms and multiple ER or hospital admissions since that time totaling 3 hospital admissions in 2019 as well as 2 emergency room department visits. Once he got through his mitral sherman ve repair in January, he was seen briefly in the emergency department on 03/29/18, where a chest x-ray s howed left greater than right infiltrates, but this cleared by , when he was seen in the ED . He was admitted 09/14 to 09/20/18, with symptoms of pneumonia, but cultures were all negative. A procalcitonin level at that time was 4.03. Infiltrates were worse on the right than left but were bi lateral. Respiratory viral panels grew coronavirus, and his white count was normal at that time. It should be noted that his BNP at that time was 22,800. In any case, he was discharged on room air bu t had some concerns about borderline oxygenation on the 24 of September and came to the emergency de partment again. This time his infiltrates looked slightly worse with bilateral diffuse opacities. C ultures were negative. His white count was only 9.3, and his BNP was 21,000. He returned to [facility], where he had been staying at that time. He was again admitted from 09/26 to 09/30, this time with a procalcitonin of only 1.45. Cultures were negative. The x-ray looked worse, and during that admission he was treated with cefepime and eventually titrated down to room air and discharged on [place] va[place]. However, on 10/03/18, he was readmitted again with concerns of hypoxemia now with a white co unt of 12.04, a procalcitonin of 6.75, cultures that have been negative, but a BNP of 39,400. Throug hout this period he has been getting dialysis for his end-stage renal disease, but interestingly, his x-ray looked better on 10/03 than it did on the previous admission. Symptomatically, he states he f eels quite stable on oxygen. His saturation was 99% on 2 L at the time of my evaluation, but he said that he continues to desaturate. He has not received amiodarone in the past or other pulmonary toxi c drugs, and his oxygen requirement does seem to fluctuate, though I could not prove it today, likely with his dialysis treatments. A specific pulmonary hypertension review of systems revealed no perso nal or family history of pulmonary hypertension that he was aware of, though his estimated PA pressfrankie e was 89 in January of 2018 with multiple other cardiac abnormalities, not the least of which was severe mitral stenosis with a prosthesis at that time. He has no history of scleroderma or other mixed con nective tissue disease, lupus, or Sjogren syndrome. He has no known history of an atrial septal defe ct or ventricular septal defect, and no history of significant liver disease or HIV risk factors. Th ere is no known history of IV drug use, cocaine, methamphetamine, or diet drugs in the past. He did have a tox screen back in January that was normal. There is no personal history of hemorrhagic telangie ctasia, Gaucher disease, glycogen storage disease, sickle cell anemia, splenectomy, myeloproliferativ e disorder, pulmonary veno-occlusive disease, or schistosomiasis. He does have a known history of le ft heart failure and valvular heart disease as described above. He is a current smoker, but he is to o young to have COPD. There is no known interstitial lung disease. He denies symptoms of sleep apne a or alveolar hypoventilation, though chronic opiate use is part of his medical history. He does not live at a high altitude. He has had no history of venous thromboembolic disease in the past; has no known history of sarcoid, histiocytosis X; has had no fibrosing mediastinitis; but does have end-sta ge renal disease as described above. PAST MEDICAL HISTORY: As best I can collect is: 1. End-stage renal disease related to congenital solitary kidney, requiring hemodialysis. 2. Hypertension. 3. Congestive heart failure, though his ejection fraction is 60% currently. 4. The mitral valve disease. As far as I can tell, it looks like he had a mitral valve repair in distant past. An annuloplasty was tried in January but failed. Then, he underwent a mitral valve rep air at that time. 5. He has also had shingles in the past. 6. Depression. 7. Anemia of chronic disease. 8. Chronic opioid use. 9. Intermittent coagulopathies. 10. A viral pneumonia with the coronavirus as described above. PAST SURGICAL HISTORY: Includes the mitral valve repairs as described, a cholecystectomy in the past . SOCIAL HISTORY: He is a current smoker, lives at [facility]; but no significant alcohol or IV drug u se, at least that I am aware of. CURRENT MEDICATIONS: Include Tylenol, p.r.n. albuterol, Xanax, aspirin, PhosLo, Tums, cefepime, Flex eril, Neurontin, hydralazine p.r.n., Dilaudid, Ativan, Lopressor, lidocaine patch, Zofran, Zoloft, Re irene, Cepacol, trazodone, Valtrex, warfarin. PHYSICAL EXAM: VITAL SIGNS: He has been afebrile throughout this admission. His current blood pres sure last recorded at 0800 today was 166/107; that was prior to dialysis. Heart rate 98. Respiratio ns 18. Oxygen saturation 93% on room air at rest. He is currently 100% on 2 L nasal cannula. GENER AL: He is awake, alert, in no apparent distress, and able to speak in full sentences without using a ccessory muscles for breathing. HEENT: His pupils are equally round, react to light. Nonicteric. Noninjected. Mucous membranes are moist without erythema or exudate. NECK: Supple without obvious adenopathy. I cannot detect jugular vein distention. LUNGS: Breath sounds are remarkably clear to auscultation bilaterally without wheezes, rubs, or rales. HEART: Appears to have a regular rate and rhythm without murmurs, rubs, gallops. ABDOMEN: Soft, nontender, nondistended without obvious hepa tosplenomegaly, though there was splenomegaly reported on a CT scan. EXTREMITIES: No clubbing, cyan osis, or edema. NEUROLOGIC: Nonfocal, including cranial nerves, deep tendon reflexes. SKIN: Warm and dry without evidence of rash. He does have multiple tattoos. OBJECTIVE DATA: Includes an echocardiogram from 01/28/18, showing estimated PA pressure of 89, moder ate right atrial enlargement, mild right ventricular enlargement, moderate to severe left atrial enla rgement, left ventricular hypertrophy, an estimated RAP of 15, abnormal septum, ejection fraction 66% with a mild reduction in right ventricular function, a TAPSE of 1.2, and severe mitral stenosis. He has had multiple partial echocardiograms, but the most complete one as of recent was 10/04/18, showi ng an estimated PA pressure of 82, upper limit of normal right atrium, normal RV, mild left atrial en largement, estimated RAP of 10, a flat septum, EF of 60%, and mild RV dysfunction. There were no com ments specifically about the mitral stenosis status at this time. In addition, I reviewed multiple h ospital records looking at chest x-rays, procalcitonins, culture data, white count data, and BNP, mos t of which I discussed in the HPI. His current white count is 6.2, hematocrit 23.5, and platelets of 201. INR is 2.9. Sodium 137, potassium 5.7, creatinine 9.7, BUN 77, albumin 3.3, and the procalcit onin 6.75. ASSESSMENT AND PLAN: 1. Pulmonary hypertension. This is clearly multifactorial with lots of different things contributin g to his abnormal echocardiograms. I do not believe that his pulmonary hypertension is causing his c urrent hypoxia, which I will discuss below. In any case, the big contributors to him is a longstandi ng history of mitral valve disease leaving vascular remodeling, which may take years to correct. The improvement in his right atrium and right ventricular sizes is certainly encouraging. There is no t ricuspid annular plane systolic excursion on the current echocardiogram, so it is hard to know if his mild right ventricular dysfunction is improved in any way, but that is clearly a major contributor. His end-stage renal disease is also a contributor which is known to cause pulmonary hypertension. A rteriovenous fistula optimization has been reported in the past to have some impact, but I think this is quite minor. I think that the persistent volume overload that he has had along these last severa l months is certainly a contributor to that. He does not have evidence of much else on his review of systems related to pulmonary hypertension as described above. Other possible contributions are hypo xemia, which does not appear to be too chronic, but that can certainly contribute to this as well. I think that in terms of management, optimization of volume using dialysis is clearly the major thing as well as oxygen as needed. I do not feel that CT angiograms, V/Q scans, right heart catheterizatio ns, connective tissue serologies, etc., are indicated at this time. I personally would not pursue a right heart catheterization. I do not believe that he is a candidate for pulmonary hypertension spec ific therapy, such as endothelin antagonist, phosphodiesterase inhibitors, or prostacyclin analogs as well as a number of other commercially available drugs specific for group 1 pulmonary hypertension. 2. Abnormal chest x-ray. My best guess is that the x-ray is resultant of volume given his excessive ly elevated BNP and long history of heart disease. He does appear to get better at times. I think t he likelihood of an interstitial lung disease is extremely low, but I might recheck a chest x-ray katie or to discharge to see that it does, in fact, improve with optimization of his volume status. If it does not, we could consider a repeat CT scan, which was done back in, I believe, , looking for subtle abnormalities, such as calciphylaxis, but I have little to support that diagnosis at this time. 3. A possibility of pneumonia. Procalcitonin can be affected by end-stage renal disease. There hav e been conflicting studies about this in the literature about whether it should be elevated or not. The fact that his white count was elevated on this admission does support this. I would fully expect him to develop fever if he really had a bacterial infection at this time. In any case, I think kulwant ting him with another round of antibiotics is fairly benign and would support that at this time. 4. Hypoxemia related to all of the above. It does seem to fluctuate some. My expectation is this i s improving, and again, stressing the optimization of volume status, would titrate his oxygen saturat ions based on pulse oximetry. If he does get to room air, then a repeat arterial blood gas, which hayes s not been done since he was on a ventilator back in January, might shed some light on his oxygen requir ements, specifically looking for an A-a gradient or elevated CO2 in a patient with known chronic opio id use. It should be noted that greater than 60 minutes of research was spent in the time of evaluating this highly complex patient. He is quite stable at this time, and I do not feel that further workup for h is pulmonary hypertension is required. We will continue to follow to see that his oxygen requirement s do improve and that his x-ray does show signs of improvement. /[id number]/MODL
[2018-10-05] MEDS ORDERED: PATCH REMOVAL 1 EA PATCH TD SCH (21:00)
[2018-10-05] MEDS: SEVELAMER HCL 800 MG TAB PO SCH (21:48)
[2018-10-05] MEDS: GABAPENTIN 100 MG CAP PO SCH (21:49)
[2018-10-05] MEDS: traZODone 50 MG TAB PO SCH (21:49)
[2018-10-06] MEDS: HYDROmorphONE/DILAUDID 1 MG/ML INJ IVP PRN ×3 (00:10→13:36)
[2018-10-06 04:34] LABS: INR 2.98 (0.83-1.16); PROTIME(PATIENT) 30.8 SEC (12.0-15.0)
[2018-10-06 07:38] VITALS: BP 178/111
[2018-10-06] MEDS ORDERED: IOPAMIDOL (ISOVUE 370) 100 ML BTL IV ONE (08:06)
[2018-10-06] MEDS: LORazepam 0.5 MG TAB PO PRN (08:17)
[2018-10-06] MEDS: HYDROmorphONE/DILAUDID 2 MG TAB PO PRN (08:17)
[2018-10-06] MEDS: METOPROLOL TARTRATE 25 MG TAB PO SCH (08:18)
[2018-10-06] MEDS: valACYclovir 500 MG TAB PO SCH (08:18)
[2018-10-06] MEDS: SERTRALINE HCL 100 MG TAB PO SCH (08:18)
[2018-10-06] MEDS: ASPIRIN 81 MG CHEWABLE TAB PO SCH (08:18)
[2018-10-06] MEDS: CALCIUM ACETATE 667 MG CAP PO SCH ×2 (08:57→13:35)
[2018-10-06] MEDS: SEVELAMER HCL 800 MG TAB PO SCH ×2 (08:58→13:35)
[2018-10-06] MEDS ORDERED: HYDROmorphONE/DILAUDID 1 MG/ML INJ IVP ONE (09:10)
--- NOTE | 2018-10-06 10:23 | ASMTLACE ---
ALICIA Acuity / Level of Answers: Yes Care: Did the patient have an inpatient admission? Comorbidities - select Answers: Congestive heart failure all that apply Moderate or severe liver or renal disease Opioid dependence / Chronic pain Other Notes: HTN # of Emergency department Answers: 5-8 visits in the last 6 months Score: 18 Date Signed: 10/06/2018 10:23 AM Electronically Signed By:Tami Baltazar
[2018-10-06] MEDS: CYCLOBENZAPRINE 10 MG TAB PO PRN (13:34)
[2018-10-06] MEDS: CEFEPIME HCL 1 GM in NS 50 ML IV SCH (13:35)
--- NOTE | 2018-10-06 15:13 | SOAPPROG ---
JASON Progress Note Assessment/Plan: Assessment: 1. esrd: hd today on typical [facility] schedule. Outpt clinic is [facility] under care of [facility]. 2. HyperK: s/p hd yesterday/today. 3. Dyspnea: s/p uf on hd, txfusion Plan: 10/06/18 15:11 Subjective: s/p hd earlier today. Planning to go home. Objective: Vital Signs Temp Pulse Resp BP Pulse Ox 37.6 C 102 H 20 178/111 H 92 10/06/18 07:26 10/06/18 07:26 10/06/18 07:26 10/06/18 07:26 10/06/18 07:26 Laboratory Results 10/05/18 03:40 10/06/18 03:50 10/05/18 10/06/18 10/07/18 05:59 05:59 05:59 Intake Total 1635 1475 Balance 1635 1475 PT 30.8 SEC (12.0-15.0) H 10/06/18 03:50 INR 2.98 (0.83-1.16) H 10/06/18 03:50 Physical Exam - Physical Exam General Appearance: no apparent distress Respiratory: lungs clear Cardiac/Chest: regular rate, rhythm Extremities: pedal edema (none), other (+patent L forearm avf) ICD10 Worksheet Patient Problems: Problems Problem Status Onset Hospital-acquired pneumonia Acute Hypoxia Acute Acute blood loss anemia Acute Acute bronchitis Acute Bilateral pneumonia Acute Chest pain Acute Coagulopathy Acute Dyspnea Acute ESRD on hemodialysis Acute Elevated troponin Acute Fever Acute Headache Acute Pneumonia Acute Postoperative pneumothorax Acute Prosthetic mitral valve stenosis Acute Pulmonary edema Acute S/P mitral valve replacement with metallic valve Acute ~02/07/18 Shortness of breath Acute Tachycardia Acute Anemia Chronic CHF (congestive heart failure) Chronic ESRD (end stage renal disease) Chronic Hypertensive urgency Chronic Severe mitral regurgitation Chronic
--- NOTE | 2018-10-06 15:24 | PDIAF ---
- Diagnosis Code Status: Full Code - Medication Management Additional Medication Instructions: decreased coumadin to 4mg daily due to supratherapeutic INR, monitor INR closely and adjust for INR 2.5-3.5. Has one dose of cefepime due after dialysis on 10/08. 1gram cefepime. Discharge Medications: electronically signed and located in the Home Medication List. - Orders Services needed: Registered Nurse, Physical Therapy, Occupational Therapy Isolation Type: Contact Isolation Diet Recommendation: other (renal diet) Diet Texture: Regular Texture Diet Weigh Patient: daily Additional Instructions: Resume your medications as prescribed. Use oxygen as needed to keep your oxygen saturation above 90%. stop smoking cigarettes. Resume activity as tolerated. we reduced your coumadin to 4mg daily because your INR is too high. Check your INR daily with a goal of 2.5-3.5 - Labs/Radiology BMP Date: 10/07/18 HCT/HGB Date: 10/07/18 (Monitor H/H closely, hx of anemia) PT/INR Date: 10/07/18 (monitor INR daily) - Follow Up Care Current Providers and Referrals: NONE *PRIMARY CARE P,. [Primary Care Provider] -
--- NOTE | 2018-10-06 15:47 | ASMTDCNOTE ---
Case Management Discharge Discharge Order Complete? Answers: Yes Patient to Obtain Answers: Other Notes: [facility] Medications Transportation Arranged Answers: Other Notes: arranged by Darwin from [facility] Transport will Pick (Date 10/06/2018 04:30 PM & Time) Faxed Final Orders Answers: Yes [facility] Agency/[facility] Transfer Answers: Yes Notes: [facility] and [employer] Report Printed & Faxed to Receiving Agency Discharge Comments Notes: 10/06/2018 Case Management Note Faxed final orders to [facility] and [facility]. Darwin from [facility] arranged transport for 16:30 pickler helper. Shahzad to meet w/pt this week at [facility]. Case Management d/c poc: [facility] where pt resides resuming outpatient dialysis Date Signed: 10/06/2018 03:46 PM Electronically Signed By:Lindy Ibarra RN
--- NOTE | 2018-10-06 15:48 | ASDISCHSUM ---
Discharge Information Plan Status:SNF Medically Cleared to Leave:10/05/2018 Discharge Date:10/05/2018 CM D/C Disposition:Alf Facility ADT D/C Disposition:Home, Routine, Self-Care Projected Discharge Date:10/05/2018 11:00 AM Transportation at D/C:Wheelchair Van Discharge Delay Reason: Follow-Up Date:10/05/2018 11:00 AM Discharge Slot: Final Diagnosis: Placement Information Referral Type:*Correction/SNF Referral ID:[id number] [facility] Address 1:[address] Address 2: Fax Number: [facility]:[place] Selection Factors: State:[place] Referral Type:Palliative Care Referral ID:-[id number] Provider Name:[facility] Address 1:[address] Phone Number: Address 2: Fax Number: [facility]:[place] Selection Factors: State:[place] Patient Contact Information Contact Name:DONI Relationship:Mother Address:[address] [address] Work Phone: City:[facility] Phone: State/Zip Code:[place] [address] Email: Financial Information Financial Class:Medicare Primary Plan Desc:MEDICARE INPATIENT Primary Plan Number:[id number] Secondary Plan Desc:MED[place] Secondary Plan Number:[id number] Assessment Information [facility] CM Progress Note CM Note CM Note Notes: Pt is a 27 y/o man admitted for CAP and hypoxia. Pt is well known to [facility]. Pt is currently getting rehab at [facility]. Granados from [facility] stopped by and visited w/ pt. Updates sent to [facility]. CM to follow. Plan: [facility] Date Signed: 10/03/2018 12:42 PM Electronically Signed By:ELIDIA Francisco [facility] CM Progress Note CM Note CM Note Notes: CM met with pt. RN reported that pt was feeling down and tired. Pt reports that he is frustrated that he keeps coming back to the hospital and wants to feel better. Pt reports he feels like talking with someone might help and to have additional supports as he navigates his complex medical condition would be appreciated. ordered Palliative care consult today as well as Yeni Mullins consult for supportive services. CM to follow. Plan: [facility] once medically stable. Date Signed: 10/05/2018 02:58 PM Electronically Signed By:ELIDIA Sosa LACE LACE Acuity / Level of Answers: Yes Care: Did the patient have an inpatient admission? Comorbidities - select Answers: Congestive heart failure all that apply Moderate or severe liver or renal disease Opioid dependence / Chronic pain Other Notes: HTN # of Emergency department Answers: 5-8 visits in the last 6 months Score: 18 Date Signed: 10/06/2018 10:23 AM Electronically Signed By:Tami Baltazar Case Management Discharge Plan Note Case Management Discharge Discharge Order Complete? Answers: Yes Patient to Obtain Answers: Other Notes: [facility] Transportation Arranged Answers: Other Notes: arranged by Darwin from [facility] Transport will Pick (Date 10/06/2018 04:30 PM & Time) Faxed Final Orders Answers: Yes Notes: to [facility] Agency/Facility Transfer Answers: Yes Notes: Jaqueline Mccarthy on Report Printed & Faxed to Receiving Agency Discharge Comments Notes: 10/06/2018 Case Management Note Faxed final orders to [facility] matias [facility]. Darwin from [facility] arranged transport for 16:30 strip picker. Shahzad to meet w/pt this week at [facility]. Case Management d/c poc: [facility] where pt resides resuming outpatient dialysis Date Signed: 10/06/2018 03:46 PM Electronically Signed By:Lindy Ibarra RN Intervention Information Intervention Type:*IM-Signed Date of Service:10/06/2018 03:41 PM Patient Type:Inpatient Staff Member:Tami Baltazar Hours: Discipline: Severity: Comment:
[2018-10-06] MEDS ORDERED: WARFARIN SODIUM 4 MG TAB PO ONE (16:00)
--- NOTE | 2018-10-06 18:32 | PDDCSUM ---
Discharge Summary Discharge Summary: Discharge diagnosis Acute on chronic hypoxemic respiratory failure Prosthetic mitral valve End-stage renal disease on dialysis Hyperkalemia Chronic pain Hypertension CHF Healthcare associated pneumonia Sepsis Supratherapeutic INR Patient is a 27-year-old male who was just discharged where he was treated for pneumonia who re-presented to the hospital 2 days later with complaints of shortness of breath and cough. Chest x-ray was obtained which showed bilateral infiltrates. He was started on cefepime for possible healthcare associated pneumonia. He was noted to be hyp hyperkalemic. He was taken to dialysis which was effective in resolving his hyperkalemia. His oxygen status never really improved. Repeat chest x-ray was essentially the same as admission. On auscultation the patient's lungs sound completely clear. Cultures never grew out any organism and respiratory panel was negative. Repeat echo was obtained which showed ever elevated right atrial systolic pressure consistent with pulmonary hypertension, but good and stable left ventricular ejection fraction. Because of his highly elevated right atrial systolic pressure pulmonology was consulted to weigh in on the patient's possible pulmonary hypertension as well as his pulmonary status overall. They felt that his pulmonary hypertension was likely secondary to end-stage renal disease and not amenable to any treatment except volume optimization with dialysis. A CTA chest was obtained to ensure the patient did not have pulmonary embolus or any other etiology to explain his dyspnea on exertion and mild hypoxia. The CTA was negative for PE and showed only mild infiltrates consistent with pulmonary edema. The patient had not had a fever in days and only a mild white count on admission. It was thought that his mild chronic hypoxia was likely secondary to mild fluid overload in the setting of end-stage renal disease, noncompliance and continued tobacco abuse. The patient became increasingly anxious who was noted to be leaving the unit multiple times coming back smelling of tobacco and insisting that he needed to be discharged. Ultimately the decision was made to discharge the patient back to [facility] to complete a 7 day course of cefepime for possible healthcare associated pneumonia. He was discharged with a prescription for oxygen to be titrated p.r.n. To avoid readmission for mild hypoxemia. Discharge disposition Back to [facility] I spent over 30 min on the discharge of this patient
== END 2018-10-06 16:39 | DRG 871 ==
LOC: EDUNIT# → F2W 10-03 01:50
PROVIDERS: ADMIT Family Medicine; ATTEND Family Medicine
PROC: 5A1D70Z Performance of Urinary Filtration, Intermittent, Less than 6 Hours Per Day (ICD-10-PCS; principal; 2018-10-03)
PROC: 30233N1 Transfusion of Nonautologous Red Blood Cells into Peripheral Vein, Percutaneous Approach (ICD-10-PCS; 2018-10-03)
DX: A41.9 Sepsis, unspecified organism (principal); J18.8 Other pneumonia, unspecified organism; J96.21 Acute and chronic respiratory failure with hypoxia; I13.2 Hypertensive heart and chronic kidney disease with heart failure and with stage 5 chronic kidney disease, or end stage renal disease; N18.6 End stage renal disease; Q60.0 Renal agenesis, unilateral; I50.9 Heart failure, unspecified; E87.5 Hyperkalemia; D63.1 Anemia in chronic kidney disease; I27.29 Other secondary pulmonary hypertension; G89.29 Other chronic pain; Z95.2 Presence of prosthetic heart valve; Z72.0 Tobacco use; Z79.01 Long term (current) use of anticoagulants; Z99.2 Dependence on renal dialysis
CPT/HCPCS: 96365; J0692; J1170; P9016; P9040; Q9967

== ENCOUNTER → 2018-10-02 | Outpatient (CLI) | payer OTHER, MEDICAID | LOC: CIMAGING 15:24 | PROVIDERS: ATTEND Internal Medicine Cardiovascular Disease | DX: R91.8 Other nonspecific abnormal finding of lung field (principal); R06.02 Shortness of breath; I38 Endocarditis, valve unspecified; Z95.4 Presence of other heart-valve replacement | CPT/HCPCS: 71046-PO ==

== ENCOUNTER 2018-12-05 13:10 | Observation (INO) | payer OTHER, MEDICAID ==
--- NOTE | 2018-12-05 13:38 | EDPHY ---
H & P Stated Complaint: general malaise/low H/H Time Seen by Provider: 12/05/18 13:37 HPI/ROS: CHIEF COMPLAINT: Weak and dizzy when upright, referred by dialysis center HISTORY OF PRESENT ILLNESS: This is a 28-year-old male with end-stage kidney disease on thrice weekly dialysis. He was referred to the emergency department today by his dialysis center because of low hemoglobin and hematocrit. This has been an issue for him in the past, requiring blood transfusion. They were unable to dialyze him today. He was on Lovenox up until 1 week ago. He has not been aware of any recent bleeding and denies blood in his stool or nosebleed. He complains that he feels lightheaded when he stands up. He also feels slightly SOB. He has not missed any dialysis sessions and is compliant with his medications. REVIEW OF SYSTEMS: A ten system review of systems was performed and is negative with the exception of the items mentioned in the HPI. Past medical history: 1. End-stage renal disease on dialysis, congenital single kidney 2. Hypertension 3. Mitral valve prolapse with mitral valve replacement in 2017 4. Chronic pain on opiates Past surgical history: 1. Mitral valve replacement 2. Cholecystectomy next 3. Av fistula left forearm 4. Thoracentesis Social history: He lives at [facility]. He smokes 3 cigarettes daily. No alcohol use. General Appearance: Alert. Vital signs reviewed. Eyes: Pupils equal and round, OS with small medial subconjunctival hemorrhage, no discharge. Anicteric. ENT, Mouth: Mucous membranes are moist, no oropharyngeal erythema or edema. Neck: No lymphadenopathy, supple. No JVD. Respiratory: Lungs are clear to auscultation; no wheezes, rales, or rhonchi. Cardiovascular: Regular rate and rhythm; no murmur, rub, or gallop. Gastrointestinal: Abdomen is soft and nontender, no masses or organomegaly, bowel sounds normal. Skin: Warm and dry, no rashes on exposed skin, grayish tinge. Back: Nontender to palpation over the thoracolumbar spine. No CVAT. Extremities: No lower extremity edema, no calf tenderness or swelling. Strong thrill in AV fistula left forearm. Neurological: Alert and oriented. Moving all four extremities easily and equally. ZOLTAN. EOMI. Facial expressions symmetric. Tongue midline. Psychiatric: Normal affect. - Personal History Current Tetanus/Diphtheria Vaccine: Yes Current Tetanus Diphtheria and Acellular Pertussis (TDAP): Yes - Medical/Surgical History Hx Asthma: No Hx Chronic Respiratory Disease: No Hx Diabetes: No Hx Cardiac Disease: Yes Hx Renal Disease: Yes Hx Cirrhosis: No Hx Alcoholism: No Hx HIV/AIDS: No Hx Splenectomy or Spleen Trauma: No Other PMH: PMHx: congenital lack of R kidney, failing L kidney dialysis, HTN, chf, mitral valve prolapse w/replacement 07/2017, PNA. PSHx: chani, thoracentisis, av fistula in left distal forarm - Social History Smoking Status: Current every day smoker Constitutional: Initial Vital Signs Temperature (C) 37 C 12/05/18 13:18 Heart Rate 71 12/05/18 13:18 Respiratory Rate 16 12/05/18 13:18 Blood Pressure 143/103 H 12/05/18 13:18 O2 Sat (%) 96 12/05/18 13:18 O2 Delivery Mode Room Air Allergies/Adverse Reactions: lidocaine [From Lidoderm] Allergy (Intermediate, Verified 12/05/18 16:06) Rash Home Medications: Medication Instructions Recorded Gabapentin [Neurontin 100 MG (*)] 100 mg PO HS 01/12/18 Albuterol [Proventil Inhaler HFA 2 puffs IH Q4HRS PRN 09/14/18 (*)] Calcium Acetate [Phoslo (*)] 2 each PO TIDMEAL 09/14/18 Calcium Carbonate [Tums 500MG (*)] 500 mg PO Q6HRS PRN 09/14/18 Nitroglycerin [Nitrostat 0.4 mg 0.4 mg SL Q5M PRN 09/14/18 (*)] Ondansetron Odt [Zofran Odt 4 mg 4 mg PO Q6HRS PRN 09/14/18 (*)] Sertraline HCl [Zoloft 100mg (*)] 200 mg PO DAILY@0800 09/14/18 Sevelamer Carbonate [Renvela] 3 each PO TIDMEAL 09/14/18 traZODone [traZODONE 50MG (*)] 50 mg PO HS 09/14/18 ALPRAZolam [Alprazolam] 0.5 mg PO BID PRN #1 tablet 09/20/18 Benzonatate [Tessalon Pearles] 200 mg PO BID 10/03/18 Acetaminophen [Tylenol 325mg (*)] 650 mg PO Q6 PRN 12/05/18 Benzocaine/Menthol [Cepacol Sore 1 each PO DAILY PRN 12/05/18 Throat Lozenge] Cyclobenzaprine [Cyclobenzaprine 7.5 mg PO Q12HRS PRN 12/05/18 HCl] HYDROmorphone HCL [Dilaudid 2 mg 2 mg PO Q3H PRN 12/05/18 (*)] HYDROmorphone HCL [Dilaudid 2 mg 4 mg PO Q3HRS PRN 12/05/18 (*)] Ipratropium/Albuterol [Duoneb (*)] 3 ml IH Q6HRS PRN 12/05/18 Metoprolol Tartrate [Lopressor 100 100 mg PO BID@08,16 12/05/18 mg (*)] Mirtazapine [Remeron soltab 15 mg 15 mg PO HS 12/05/18 (*)] Sennosides [Senna Lax] 2 each PO BID PRN 12/05/18 guaiFENesin [Mucinex 600 MG (*)] 600 mg PO BID PRN 12/05/18 hydrALAZINE [Apresoline 10 mg (*)] 10 mg PO Q6H PRN 12/05/18 Medical Decision Making - Diagnostics EKG Interpretation: 12 lead EKG is interpreted in [place] by emergency department physician. ED Course/Re-evaluation: 28-year-old with end-stage renal disease who presents with lightheadedness. Hemoglobin and hematocrit of 6.4 and 20 here today. I have spoken with [facility]. Blood transfusion is recommended. They can hopefully arrange dialysis for him tomorrow at one of the [facility] centers. He will be admitted to the hospitalist service for transfusion and monitoring of his H/H. No evidence of fluid overload on physical exam. jeromy Rodas, cell phone [phone]. Call with questions. Differential Diagnosis: [place] a differential diagnosis that includes but is not limited to affect of anticoagulation medication, anemia of chronic disease, ongoing bleeding. - Data Points Laboratory Results: Laboratory Results 12/05/18 14:45 12/05/18 14:45 Medications Given: Discontinued Medications Alprazolam (Xanax) 0.5 mg PO BID PRN PRN Reason: severe anxiety Stop: 06/03/19 19:04 Last Admin: 12/07/18 09:20 Dose: 0.5 mg Benzonatate (Tessalon Pearles) 200 mg PO BID [facility] Stop: 06/03/19 20:59 Last Admin: 12/07/18 07:42 Dose: Not Given Calcium Acetate (Phoslo) 1,334 mg PO TIDMEAL [facility] Stop: 06/04/19 07:59 Last Admin: 12/07/18 13:00 Dose: Not Given Cyclobenzaprine HCl (Flexeril) 7.5 mg PO BID PRN PRN Reason: MUSCLE SPASMS Stop: 06/03/19 19:40 Last Admin: 12/07/18 09:20 Dose: 7.5 mg Gabapentin (Neurontin) 100 mg PO HS [facility] Stop: 06/03/19 20:59 Last Admin: 12/06/18 20:04 Dose: 100 mg Hydralazine HCl (Apresoline) 10 mg PO Q6H PRN PRN Reason: TO KEEP SBP >180 DBP>100 Stop: 06/03/19 19:04 Last Admin: 12/07/18 08:13 Dose: 10 mg Hydromorphone HCl (Dilaudid) 1 mg IVP EDNOW ONE Stop: 12/05/18 14:49 Last Admin: 12/05/18 15:21 Dose: 1 mg Hydromorphone HCl (Dilaudid) 1 mg IVP EDNOW ONE Stop: 12/05/18 15:54 Last Admin: 12/05/18 16:23 Dose: 1 mg Hydromorphone HCl (Dilaudid) 4 mg PO Q4HRS PRN PRN Reason: Pain, Breakthrough Stop: 12/15/18 17:27 Last Admin: 12/05/18 17:49 Dose: 4 mg Hydromorphone HCl (Dilaudid) 4 mg PO Q3HRS PRN PRN Reason: Pain, Breakthrough Stop: 12/15/18 19:04 Last Admin: 12/07/18 12:59 Dose: 4 mg Metoprolol Tartrate (Lopressor) 100 mg PO BID@08,16 [facility] Stop: 06/04/19 07:59 Last Admin: 12/07/18 07:39 Dose: 100 mg Mirtazapine (Remeron Soltab) 15 mg PO HS BRANDY Stop: 06/03/19 20:59 Last Admin: 12/06/18 20:03 Dose: 15 mg Sertraline HCl (Zoloft) 200 mg PO DAILY@0800 [facility] Stop: 06/04/19 07:59 Last Admin: 12/07/18 07:39 Dose: 200 mg Sevelamer HCl (Renagel) 2,400 mg PO TIDMEAL BR[facility]Y Stop: 06/04/19 07:59 Last Admin: 12/07/18 13:00 Dose: Not Given Trazodone HCl (Trazodone) 50 mg PO HS BRANDY Stop: 06/03/19 20:59 Last Admin: 12/06/18 20:02 Dose: 50 mg Departure - Departure Disposition: [facility] Acute Clinical Impression: Anemia Qualifiers: Anemia type: due to chronic kidney disease Chronic kidney disease stage: on chronic dialysis Qualified Code(s): N18.6 - End stage renal disease Condition: Fair
[2018-12-05] MEDS ORDERED: HYDROmorphONE/DILAUDID 2 MG/ML INJ IVP ONE ×2 (14:48→15:53)
[2018-12-05 15:02] LABS: PLATELET COUNT 191 10^3/uL (150-400)
--- NOTE | 2018-12-05 15:56 | CPEKG ---
Test Reason : OPEN Blood Pressure : / mmHG Vent. Rate : 070 BPM Atrial Rate : 070 BPM P-R Int : 102 ms QRS Dur : 087 ms QT Int : 416 ms P-R-T Axes : 076 004 065 degrees QTc Int : 449 ms Sinus rhythm Short UT interval Probable left atrial enlargement Confirmed by Paul Cai ([id number]) on 12/05/2018 3:56:45 PM Referred By: PAUL CAI Confirmed By:Paul Cai
[2018-12-05] MEDS ORDERED: ONDANSETRON 4 MG/2 ML VIAL IVP PRN (16:56)
[2018-12-05] MEDS ORDERED: ONDANSETRON DISINTEGRATING 4 MG TAB PO PRN (16:56)
[2018-12-05] MEDS ORDERED: ACETAMINOPHEN 325 MG TAB PO PRN (16:56)
[2018-12-05] MEDS ORDERED: HYDROmorphONE/DILAUDID 4 MG TAB PO PRN (17:28)
[2018-12-05 17:43] LABS: INR 4.16 (0.83-1.16)
[2018-12-05] MEDS ORDERED: HYDROmorphONE/DILAUDID 2 MG TAB PO PRN (18:00)
--- NOTE | 2018-12-05 18:10 | GHP ---
[f rep st] HISTORY AND PHYSICAL DATE OF ADMISSION: 12/05/2018 CHIEF COMPLAINT: 1. Fatigue. 2. Anemia. HISTORY OF PRESENT ILLNESS: A 28-year-old male with end-stage renal disease on dialysis Saturday, Saturday, Saturday for congenital unilateral kidney, hypertension, CHF, history of mitral valve replacement, is on Coumadin, who presented from dialysis. Had labs drawn on Saturday, and hemoglobin was 6.8. He has noticed significant weakness and fatigue over the past 4 days. He becomes very weak even just getting up going to the bathroom. He noticed shortness of breath with standing. Endorses chronic chest pain that is musculoskeletal. He takes Dilaudid for this. Denies fevers, chills. Endorses night sweats for the past month. No weight gain or weight loss. Has intermittent hemoptysis when coughing. Denies hematochezia or melena. Next, denies upper respiratory symptoms, myalgias, nausea, vomiting, or diarrhea. REVIEW OF SYSTEMS: I completed a 10-point review of systems. Negative except as noted in HPI. PAST MEDICAL HISTORY: 1. End-stage renal disease, on dialysis secondary to solitary kidney on HD at [facility] (Dr. Lucas). 2. CHF. 3. History of mitral valve prolapse status post bioprosthetic mitral valve complicated by mitral stenosis, now status post mechanical MVR on chronic anticoagulation with Coumadin. 4. Anemia of chronic kidney disease. 5. Chronic pain on opiates. 6. Insomnia. 7. Hypertension. SURGICAL HISTORY: 1. Left upper extremity AVS creation. 2. Bioprosthetic MVR, failed MV angioplasty 01/29/2018, mechanical mitral valve placement 01/29/2018. 3. Cholecystectomy. FAMILY HISTORY: No family with valvular heart disease or kidney disease. SOCIAL HISTORY: He smokes 3 cigarettes a day. Alcohol none. Drugs none. Lives at [facility]. Mother just recently in July 2018. He is originally from [place]. No family in the area. ALLERGIES: Lidocaine. HOME MEDICATION: 1. Guaifenesin. 2. Flexeril. 3. Dilaudid 2-4 mg q.3 hours p.r.n. 4. Trazodone 50 mg at bedtime. 5. Coumadin 4 mg daily. 6. Renvela 2400 with meals. 7. Sertraline 200 mg daily. 8. Zofran as needed. 9. Nitroglycerin. 10. Metoprolol 12.5 mg b.i.d. 11. DuoNeb. 12. Gabapentin 100 mg q.h.s. 13. Flexeril 10 q.8 hours p.r.n. 14. Calcium carbonate 500 mg q.6 hours p.r.n. 15. Calcium acetate 2001 mg p.o. t.i.d. meals. 16. Tessalon Perles. 17. Aspirin. 18. Albuterol. 19. Alprazolam. PHYSICAL EXAMINATION: VITAL SIGNS: Temperature 37, blood pressure 166/110, heart rate in the 70s, respirations 16, 96% on room air. GENERAL: Fatigued, pale. HEENT: PERRLA. Conjunctival pallor. Moist mucous membranes. CV: Regular rate, rhythm. LUNGS: Clear. No crackles or wheezing. ABDOMEN: Soft, nontender, nondistended. Positive bowel sounds. : No [place]. MUSCULOSKELETAL: 5/5 upper and lower extremity strength. Left upper extremity fistula with thrill. NEURO: 2 through 12 intact. PSYCH: Alert and oriented x3. LABORATORY: INR is pending. Sodium 133, potassium 4.8, chloride 98, carbon dioxide 23, BUN 53, creatinine 6.7, calcium is 9.8. Hemoglobin 6.4, hematocrit 20, platelets 191. EKG personally reviewed by me, normal sinus rhythm. Short IA interval. ASSESSMENT AND PLAN: 1. Onpcu-oc-nbisemh anemia: endorses hemoptysis. INR >4. Hold Coumadin, check AXR. Transfusing blood now. Denies any other bleeding. 2. End stage renal disease: We will plan for outpatient dialysis tomorrow if discharged. 3. History of mitral valve prolapse, status post initial bioprosthetic mitral valve complicated by mitral stenosis, now with mechanical mitral valve replacement on chronic anticoagulation. 4. Chronic pain. Dilaudid. 5. Insomnia. Trazodone. 6. Hypertension. Home medications. 7. Tobacco abuse. Counseled on cessation. 8. Diet: Renal. 9. Deep venous thrombosis prophylaxis: Low risk. DISPOSITION: Observation for acute anemia warranting transfusion. /[id number]/MODL MTDD
[2018-12-05] MEDS ORDERED: IPRATROPIUM/ALBUTEROL 3 ML DEYVIAL IH PRN (19:05)
[2018-12-05] MEDS ORDERED: guaiFENesin 600 MG TAB.ER PO PRN (19:05)
[2018-12-05] MEDS ORDERED: ALBUTEROL 60 PUFFS/8 GM MDI IH PRN (19:05)
[2018-12-05] MEDS ORDERED: CEPACOL LOZENGE PO PRN (19:05)
[2018-12-05] MEDS ORDERED: NITROGLYCERIN 0.4 MG BTL SL PRN (19:05)
[2018-12-05] MEDS ORDERED: SENNOSIDES 1 TAB PO PRN (19:05)
[2018-12-05] MEDS ORDERED: CALCIUM CARBONATE 500 MG CHEWABLE TAB PO PRN (19:05)
[2018-12-05] MEDS: CYCLOBENZAPRINE 10 MG TAB PO PRN (19:44)
[2018-12-05] MEDS: HYDROmorphONE/DILAUDID 4 MG TAB PO PRN (19:44)
[2018-12-05] MEDS: traZODone 50 MG TAB PO SCH (20:25)
[2018-12-05] MEDS: BENZONATATE 100 MG CAP PO SCH (20:26)
[2018-12-05] MEDS: GABAPENTIN 100 MG CAP PO SCH (20:27)
[2018-12-05] MEDS: MIRTAZAPINE 15 MG ODTAB PO SCH (20:27)
[2018-12-05] MEDS: ALPRAZolam 1 MG TAB PO PRN (22:47)
[2018-12-06] MEDS: HYDROmorphONE/DILAUDID 4 MG TAB PO PRN ×6 (04:38→20:14)
[2018-12-06] MEDS: hydrALAZINE 10 MG TAB PO PRN ×2 (04:50→11:18)
[2018-12-06 05:01] LABS: INR 4.15 (0.83-1.16); PROTIME(PATIENT) 37.9 SEC (12.0-15.0)
[2018-12-06] MEDS: CALCIUM ACETATE 667 MG CAP PO SCH ×3 (08:00→18:20)
[2018-12-06] MEDS: SERTRALINE HCL 100 MG TAB PO SCH (08:00)
[2018-12-06] MEDS: BENZONATATE 100 MG CAP PO SCH ×2 (08:01→20:02)
[2018-12-06] MEDS: SEVELAMER HCL 800 MG TAB PO SCH ×3 (08:01→18:20)
[2018-12-06] MEDS: METOPROLOL TARTRATE 100 MG TAB PO SCH ×2 (08:01→17:14)
[2018-12-06] MEDS: CYCLOBENZAPRINE 10 MG TAB PO PRN ×2 (08:01→20:03)
[2018-12-06] MEDS: ALPRAZolam 1 MG TAB PO PRN ×2 (08:02→20:04)
--- NOTE | 2018-12-06 09:40 | ASMTCMCOM ---
CM Note CM Note Notes: Reviewed chart, pt admitted for anemia. Pt lives at [facility] and gets dialysis MWF. No therapies ordered, anticipate he will dc back to when medically stable. CM available should his needs change. DC Plan: [facility]/ [facility] Date Signed: 12/06/2018 09:39 AM Electronically Signed By:Yeni Cole RN
--- NOTE | 2018-12-06 12:26 | PDDCSUM ---
Discharge Summary Discharge Summary: This is a 28 yo male with hx of ESRD, MVR, CHF, HTN, and anemia who was admitted with acute on chronic anemia. He required transfusion. He has HD on but did not get HD on Saturday. He had transfusion and his hgb is 7.2 today. He will have HD today. He also was noted to have an elevated INR and coumadin was held. His INR today is 4.15. He has had some hemoptysis. He is instructed to hold his coumadin and his INR will be rechecked on Saturday. Coumadin and ASA will be held today until repeat INR #ESRD #chronic AC #Hemoptysis #acute on chronic anemia #MVR #CHF Exam: NAD AAOX3 RRR CTA B MEDS: SEE MED REC TOTAL TIME SPENT ON D/C IS 35 MINS
--- NOTE | 2018-12-06 13:04 | PDIAF ---
- Diagnosis Diagnosis: ANEMIA Code Status: Full Code - Medication Management Discharge Medications: electronically signed and located in the Home Medication List. - Orders Isolation Type: Contact Isolation Diet Recommendation: no restrictions on diet Diet Texture: Regular Texture Diet Additional Instructions: activity: as tolerated F/U: WITH NEPHROLOGY. Cont current HD schedule Hold Coumadin and Aspirin until repeat INR on Saturday during dialysis. - Follow Up Care Current Providers and Referrals: Patient,NotPresent [Primary Care Provider] - As per Instructions
--- NOTE | 2018-12-06 13:15 | ASMTLACE ---
LACE Length of stay for Answers: Less than 1 day current admission Acuity / Level of Answers: No Care: Did the patient have an inpatient admission? Comorbidities - select Answers: Congestive heart failure all that apply Moderate or severe liver or renal disease Opioid dependence / Chronic pain Other Notes: HTN # of Emergency department Answers: 5-8 visits in the last 6 months Score: 15 Date Signed: 12/06/2018 01:14 PM Electronically Signed By:Yeni Cole RN
--- NOTE | 2018-12-06 17:05 | ASMTCMCOM ---
CM Note CM Note Notes: Dc cancelled, pt not able to get dialysis until 5 or 6 pm, will dc back to [facility] in am. DC Plan: SNF/ [facility] LTC Date Signed: 12/06/2018 05:04 PM Electronically Signed By:Yeni Cole RN
--- NOTE | 2018-12-06 20:01 | SOAPPROG ---
JASON Progress Note Assessment/Plan: Assessment/Plan: 28 yo M with ESRD on HD MWF at [facility] with Dr. Rawls and history of MVR admitted for transfusion for anemia. --HD planned for late tonight, ok for discharge first thing tomorrow with resumption of regular outpatient HD schedule Anemia- Hgb 8.2 on 12/06 Subjective: Feeling better after transfusion. Night sweats are his only complaint. Objective: Vital Signs Temp Pulse Resp BP Pulse Ox 36.6 C 60 18 149/103 H 94 12/06/18 19:13 12/06/18 19:13 12/06/18 19:13 12/06/18 19:13 12/06/18 19:13 Laboratory Results 12/06/18 04:30 12/05/18 12/06/18 12/07/18 05:59 05:59 05:59 Intake Total 600 500 Balance 600 500 PT 37.9 SEC (12.0-15.0) H 12/06/18 04:30 INR 4.15 (0.83-1.16) H 12/06/18 04:30 General- awake, alert, well-appearing, NAD Eyes- anicteric sclera, no conjunctival injection CV- NRRR, + systolic murmur Pulm- CTAB, no wheezes or rales Extrem- Distal LUE AVF with good bruit and thrill ICD10 Worksheet Patient Problems: Problems Problem Status Onset Anemia Chronic Acute blood loss anemia Acute Acute bronchitis Acute Bilateral pneumonia Acute Chest pain Acute Coagulopathy Acute Dyspnea Acute ESRD on hemodialysis Acute Elevated troponin Acute Fever Acute Headache Acute Hospital-acquired pneumonia Acute Hypoxia Acute Pneumonia Acute Postoperative pneumothorax Acute Prosthetic mitral valve stenosis Acute Pulmonary edema Acute S/P mitral valve replacement with metallic valve Acute ~02/07/18 Shortness of breath Acute Tachycardia Acute CHF (congestive heart failure) Chronic ESRD (end stage renal disease) Chronic Hypertensive urgency Chronic Severe mitral regurgitation Chronic
[2018-12-06] MEDS: traZODone 50 MG TAB PO SCH (20:02)
[2018-12-06] MEDS: MIRTAZAPINE 15 MG ODTAB PO SCH (20:03)
[2018-12-06] MEDS: GABAPENTIN 100 MG CAP PO SCH (20:04)
[2018-12-07] MEDS: SEVELAMER HCL 800 MG TAB PO SCH ×2 (07:39→13:00)
[2018-12-07] MEDS: CALCIUM ACETATE 667 MG CAP PO SCH ×2 (07:39→13:00)
[2018-12-07] MEDS: METOPROLOL TARTRATE 100 MG TAB PO SCH (07:39)
[2018-12-07] MEDS: SERTRALINE HCL 100 MG TAB PO SCH (07:39)
[2018-12-07] MEDS: BENZONATATE 100 MG CAP PO SCH ×2 (07:40→07:42)
[2018-12-07] MEDS: HYDROmorphONE/DILAUDID 4 MG TAB PO PRN ×2 (07:40→12:59)
[2018-12-07] MEDS: hydrALAZINE 10 MG TAB PO PRN (08:13)
[2018-12-07] MEDS: CYCLOBENZAPRINE 10 MG TAB PO PRN (09:20)
[2018-12-07] MEDS: ALPRAZolam 1 MG TAB PO PRN (09:20)
--- NOTE | 2018-12-07 09:57 | ASMTCMCOM ---
CM Note CM Note Notes: Pt returned from Dialysis early this morning with an elevated B/p 145/105 and RN noted swelling above dialysis catheter in rt arm. Pt to have an US. Pt will likely return to [facility] when medically cleared. [facility] SHAVON Floresoti updated and transport will have to be arrange if Pt cleared medically today. PLAN Return to [facility] when cleared Date Signed: 12/07/2018 09:56 AM Electronically Signed By:Olga Centeno
[2018-12-07 11:13] VITALS: BP 131/81
--- NOTE | 2018-12-07 12:22 | PDDCSUM ---
Discharge Summary Discharge Summary: This is a 28 yo male with hx of ESRD, MVR, CHF, HTN, and anemia who was admitted with acute on chronic anemia. He required transfusion. He has HD on but did not get HD on Saturday. He had transfusion and his hgb is improve. He had HD yesterday. He also was noted to have an elevated INR and coumadin was held. His INR on repeat was 4.15. He has had some hemoptysis. He is instructed to hold his coumadin and his INR will be rechecked on Saturday. Coumadin and ASA will be held today until repeat INR He had right arm swelling at location of IV site. A doppler was done which is negative for DVT #ESRD #chronic AC: NEEDS INR CHECKED ON SATURDAY AT DIALYSIS #Hemoptysis #acute on chronic anemia #MVR #CHF #HTN: Some elevated readings here. Will need to monitor and adjust accordingly as an outpatient. Exam: NAD AAOX3 RRR CTA B RIGHT ARM SWELLING MEDS: SEE MED REC TOTAL TIME SPENT ON D/C IS 35 MINS
--- NOTE | 2018-12-07 12:23 | PDIAF ---
- Diagnosis Diagnosis: ANEMIA, ESRD Code Status: Full Code - Medication Management Discharge Medications: electronically signed and located in the Home Medication List. - Orders Isolation Type: None Diet Recommendation: no restrictions on diet Diet Texture: Regular Texture Diet Additional Instructions: activity: as tolerated F/U: WITH NEPHROLOGY. Cont current HD schedule Hold Coumadin and Aspirin until repeat INR on Saturday during dialysis. - Labs/Radiology PT/INR Date: 12/08/18 (RESULTS TO NEPHROLOGY) - Follow Up Care Current Providers and Referrals: Patient,NotPresent [Primary Care Provider] - As per Instructions
--- NOTE | 2018-12-07 13:21 | ASMTCMCOM ---
CM Note CM Note Notes: Pt cleared for discharge. [facility] will arrange transport for 2p-2:30p. SHAVON Guerrero made aware as well as Pt. UpdatesCM available if needs arise. PLAN: Return to [facility]. Date Signed: 12/07/2018 01:21 PM Electronically Signed By:Olga Centeno
--- NOTE | 2018-12-07 13:23 | ASMTDCNOTE ---
Case Management Discharge Discharge Order Complete? Answers: Yes Patient to Obtain Answers: Other Notes: [facility] Medications Transportation Arranged Answers: Other Notes: [place] [facility] will Pick (Date 12/07/2018 12:00 AM & Time) Faxed Final Orders Answers: Yes Agency/Facility Transfer Answers: Yes Report Printed & Faxed to Receiving Agency Discharge Comments Notes: D/w MD, final orders faxed. [facility] at [facility] notified, RN to call report. Date Signed: 12/07/2018 01:22 PM Electronically Signed By:Olga Centeno
--- NOTE | 2018-12-10 14:56 | ASDISCHSUM ---
Discharge Information Plan Status: Medically Cleared to Leave: Discharge Date:12/07/2018 02:39 PM CM D/C Disposition: ADT D/C Disposition:Snf Facility Projected Discharge Date:12/07/2018 11:00 AM Transportation at D/C: Discharge Delay Reason: Follow-Up Date:12/07/2018 11:00 AM Discharge Slot: Final Diagnosis: Placement Information Referral Type:*Correction/SNF Referral ID:[id number] Provider Name:Lizeth Trujillo/MIKEY Herrera Address 1:[address] Address 2: Fax Number: [facility]:[place] Selection Factors: State:[place] Patient Contact Information Contact Name:DONI Relationship:Mother Address:[address] Work Phone: [facility]:[place] Alternate Phone: State/Zip Code:[place] [address] Email: Financial Information Financial Class:Medicare Primary Plan Desc:MEDICARE OUTPATIENT Primary Plan Number:[id number] Secondary Plan Desc:[place] Secondary Plan Number:[id number] Assessment Information LACE LACE Length of stay for Answers: Less than 1 day current admission Acuity / Level of Answers: No Care: Did the patient have an inpatient admission? Comorbidities - select Answers: Congestive heart failure all that apply Moderate or severe liver or renal disease Opioid dependence / Chronic pain Other Notes: HTN # of Emergency department Answers: 5-8 visits in the last 6 months Score: 15 Date Signed: 12/06/2018 01:14 PM Electronically Signed By:Yeni Cole RN [facility] CM Progress Note CM Note CM Note Notes: Reviewed chart, pt admitted for anemia. Pt lives at [facility] and gets dialysis MWF. No therapies ordered, anticipate he will dc back to when medically stable. CM available should his needs change. DC Plan: [facility]/ [facility] Date Signed: 12/06/2018 09:39 AM Electronically Signed By:Yeni Cole RN Case Management Discharge Plan Note Case Management Discharge Discharge Order Complete? Answers: Yes Patient to Obtain Answers: Other Notes: [facility] Medications Transportation Arranged Answers: Other Notes: [place] [facility] will Pick (Date 12/07/2018 12:00 AM & Time) Faxed Final Orders Answers: Yes Agency/Facility Transfer Answers: Yes Report Printed & Faxed to Receiving Agency Discharge Comments Notes: D/w , final orders faxed. [facility] at [facility] notified, RN to call report. Date Signed: 12/07/2018 01:22 PM Electronically Signed By:Olga Centeno [facility] CM Progress Note CM Note CM Note Notes: Dc cancelled, pt not able to get dialysis until 5 or 6 pm, will dc back to [facility] in am. DC Plan: [facility]/ [facility] Date Signed: 12/06/2018 05:04 PM Electronically Signed By:Yeni Cole RN [facility] CM Progress Note CM Note CM Note Notes: Pt returned from Dialysis early this morning with an elevated B/p 145/105 and RN noted swelling above dialysis catheter in rt arm. Pt to have an US. Pt will likely [facility] to [facility] and transport will have to be arrange if Pt cleared medically today. PLAN Return to [facility] when cleared Date Signed: 12/07/2018 09:56 AM Electronically Signed By:Olga Centeno [facility] CM Progress Note CM Note CM Note Notes: Pt cleared for discharge. [facility] will arrange transport for 2p-2:30p. SHAVON Guerrero made aware as well as Pt. UpdatesCM available if needs arise. PLAN: Return to [facility]. Date Signed: 12/07/2018 01:21 PM Electronically Signed By:Olga Centeno Intervention Information
== END 2018-12-07 14:39 ==
LOC: EDUNIT# → F1N 18:14
PROVIDERS: ADMIT Internal Medicine; ATTEND Family Medicine
PROC: 30233N1 Transfusion of Nonautologous Red Blood Cells into Peripheral Vein, Percutaneous Approach (ICD-10-PCS; 2018-12-05)
PROC: 5A1D70Z Performance of Urinary Filtration, Intermittent, Less than 6 Hours Per Day (ICD-10-PCS; principal; 2018-12-07)
DX: D63.1 Anemia in chronic kidney disease (principal); Z79.01 Long term (current) use of anticoagulants; N18.6 End stage renal disease; I50.9 Heart failure, unspecified; I11.0 Hypertensive heart disease with heart failure; F17.210 Nicotine dependence, cigarettes, uncomplicated; G89.29 Other chronic pain; Q60.0 Renal agenesis, unilateral; G47.00 Insomnia, unspecified; Z99.2 Dependence on renal dialysis; Z95.2 Presence of prosthetic heart valve
CPT/HCPCS: 36430; 71045; 93005; 93971; 96374; 96376; 99285; G0378; J1170; P9016; P9040

== ENCOUNTER 2018-12-17 15:54 | Inpatient (IN) | payer OTHER, MEDICAID ==
[2018-12-17] MEDS: NITROGLYCERIN 0.4 MG BTL SL PRN ×3 (16:10→16:20)
[2018-12-17 16:14] LABS: PLATELET COUNT 195 10^3/uL (150-400)
--- NOTE | 2018-12-17 16:17 | EDPHY ---
H & P Time Seen by Provider: 12/17/18 16:02 HPI/ROS: HPI Chest pain, shortness of breath, lightheaded. 28-year-old male by ambulance from dialysis clinic. This patient resides at [facility]. He has a history of congestive heart failure, valvular disease on Coumadin and end-stage renal disease. He undergoes dialysis on Saturday, Wednesdays and Fridays. He reports that for the last 3 days he has had chest pain with increased shortness of breath that is worse with exertion. He describes the chest pain as a sensation of squeezing and pressure involving the mid chest. He states that his shortness of breath as well as his chest discomfort was worse while he was at dialysis. He reports he has also had lightheadedness worse with standing for the last several days as well. He reports also that his blood pressure was unusually high. He reports that he was given his usual metoprolol this morning for his hypertension as well as an additional antihypertensive medication which she could not name. He also reports that he was given and unknown antihypertensive medication while at dialysis clinic. He got residential through his dialysis prior to arrival. EMS reports initial blood pressures of 230s over 130s. He was given sublingual nitroglycerin and his blood pressures came down to the 190s over 120s. He was also given 324 mg of chewed aspirin by EMS as well. ROS: Constitutional: No fever, no chills. As above. Eyes: No discharge. No changes in vision. ENT: No sore throat. No nasal congestion or rhinorrhea. Respiratory: No cough. As above. Cardiac: As above, no palpitations. Gastrointestinal: No abdominal pain, no vomiting, no diarrhea. Genitourinary: No hematuria. No dysuria or increased frequency with urination. Musculoskeletal: No back pain. No neck pain. No myalgias or arthralgias. Skin: No rashes. Neurological: Chronic low-grade headache for the last 3 days, identical to previous headaches he has had in the past.. No focal weakness or altered sensation. Past medical history: End-stage renal disease secondary to solitary kidney, CHF , history of mitral valve prolapse with now status post mechanical mitral valve replacement on Coumadin, anemia of chronic kidney disease, chronic pain with history of narcotic pain medication dependence, insomnia, hypertension. Left upper extremity arteriovenous fistula, mechanical mitral valve placement in January of 2018, cholecystectomy. Social history: Everyday smoker. No drugs or alcohol. Lives at [facility]. Originally from [place]. No family in this area. Physical Exam: General Appearance: Alert, he does not appear to be in distress. This patient is responding to questions appropriately and in full sentences. This patient appears well-hydrated and well-nourished. Eyes: Pupils equal and round no pallor or injection. No lid edema, erythema or injection. Respiratory: There are no retractions, lungs are clear to auscultation with good air movement bilaterally. Cardiovascular: Regular rate and rhythm. Mitral valve click secondary to mechanical valve. Gastrointestinal: Abdomen is soft and nontender, no masses, bowel sounds normal. No focal tenderness at McBurney's point. No Khan sign. Neurological: Motor sensory function is grossly intact. Cranial nerves are normal. Gait is normal. Skin: Warm and dry, no rashes. Midline sternotomy scar. Left ventral wrist AV fistula with palpable thrill. Musculoskeletal: Neck is supple and nontender. Extremities are symmetrical. No significant lower extremity edema. All joints range without pain or impingement. Psychiatric: No agitation. No depression. Database: EKG: EKG time is 3:59 p.m.; EKG shows a narrow complex normal sinus rhythm with a ventricular rate of 84. Probable left atrial enlargement. Subtle ST depression noted in lead 1, V4 and V5. The [place], QRS, QT intervals are within normal limits. There are no ST-T wave changes indicative of ischemic or injury pattern. No evidence of right heart strain. Interpreted by me. Imaging: Chest x-ray AP portable: Pulmonary edema, acute cardiac decompensation. No evidence of infiltrate or pneumothorax. Sternotomy wires noted. No other acute cardiopulmonary disease process. Interpreted by me. Procedures: Emergency department course: Initial triage vital signs reviewed. Blood pressure 189/119. Vital signs are otherwise normal. Patient is afebrile. IV established. Patient placed on a monitoring specialist. EKG obtained and reviewed by myself. Patient will initially be given sublingual nitroglycerin, 0.4 mg Q 5 min up to x3 for his chest pain as well as hypertension. Patient shortness of breath is likely secondary to congestive heart failure exacerbation/hypertensive emergency. He is not tachycardic. EKG does not show evidence of right heart strain. Pulmonary embolism is unlikely. 5:00 p.m., after 3 sublingual nitroglycerines, the patient's blood pressure did come down to 180/120, however it as quickly rebounded and is currently 211/133. He will be started on a nitroglycerin drip initially at 100 micrograms/ minute. This will then be titrated up to a target systolic blood pressure of 160. He is also complaining of worsening pain which she describes as muscle aches and a headache. He describes the headache as gradual in onset and similar to headaches he has had in the past. He does have a history of narcotic pain medication dependence. He will be given 0.5 mg of IV hydromorphone initially. This will be repeated x1 as needed. Hospitalist paged for admission. 5:05 p.m., spoke with on-call hospitalist Dr. Elizabeth Rincon. Case discussed with her in detail. She accepts this patient for admission to the step-down unit. I will notify cardiology regarding this patient. 5:10 p.m., spoke with on-call food supervisor Dr. Pelayo. He will see this patient on consultation after admission to the floor. 5:20 p.m., the patient is feeling better, headache resolved after 0.5 mg of IV hydromorphone. He is currently on nitroglycerin at 100 micrograms/minute. Blood pressure is 158/111. patient monitor shows a narrow complex sinus rhythm with ventricular rate of 80. Pulse oximetry is 94% on room air. Patient was admitted to the step-down unit in stable and improved condition. Differential Diagnosis: The differential diagnosis on this patient includes but is not limited to hypertensive emergency, acute coronary syndrome, pulmonary embolism, CHF exacerbation. This represents a partial list of diagnoses considered. These considerations are based on history, physical exam, past history, reassessment and diagnostic testing. Smoking Status: Current every day smoker Constitutional: Initial Vital Signs Temperature (C) 36.9 C 12/17/18 16:00 Heart Rate 85 12/17/18 16:00 Respiratory Rate 15 12/17/18 16:00 Blood Pressure 189/119 H 12/17/18 16:00 O2 Sat (%) 98 12/17/18 16:00 O2 Delivery Mode Room Air Allergies/Adverse Reactions: lidocaine [From Lidoderm] Allergy (Intermediate, Verified 12/05/18 16:06) Rash Home Medications: Medication Instructions Recorded Gabapentin [Neurontin 100 MG (*)] 100 mg PO HS 01/12/18 Albuterol [Proventil Inhaler HFA 2 puffs IH Q4HRS PRN 09/14/18 (*)] Calcium Acetate [Phoslo (*)] 2 each PO TIDMEAL 09/14/18 Calcium Carbonate [Tums 500MG (*)] 500 mg PO Q6HRS PRN 09/14/18 Nitroglycerin [Nitrostat 0.4 mg 0.4 mg SL Q5M PRN 09/14/18 (*)] Ondansetron Odt [Zofran Odt 4 mg 4 mg PO Q6HRS PRN 09/14/18 (*)] Sertraline HCl [Zoloft 100mg (*)] 200 mg PO DAILY@0800 09/14/18 Sevelamer Carbonate [Renvela] 3 each PO TIDMEAL 09/14/18 traZODone [traZODONE 50MG (*)] 100 mg PO HS 09/14/18 ALPRAZolam [Alprazolam] 0.5 mg PO BID PRN #1 tablet 09/20/18 Benzonatate [Tessalon Pearles] 200 mg PO BID 10/03/18 Acetaminophen [Tylenol 325mg (*)] 650 mg PO Q4H PRN 12/05/18 Cyclobenzaprine [Cyclobenzaprine 7.5 mg PO Q12HRS PRN 12/05/18 HCl] HYDROmorphone HCL [Dilaudid 2 mg 2 mg PO Q3H PRN 12/05/18 (*)] HYDROmorphone HCL [Dilaudid 2 mg 4 mg PO Q3HRS PRN 12/05/18 (*)] Ipratropium/Albuterol [Duoneb (*)] 3 ml IH Q6HRS PRN 12/05/18 Metoprolol Tartrate [Lopressor 100 100 mg PO BID@08,16 12/05/18 mg (*)] Sennosides [Senna Lax] 2 each PO BID PRN 12/05/18 guaiFENesin [Mucinex 600 MG (*)] 600 mg PO BID PRN 12/05/18 hydrALAZINE [Apresoline 10 mg (*)] 10 mg PO Q6H PRN 12/05/18 Aspirin EC [Aspirin EC 81 mg (*)] 81 mg PO DAILY 12/17/18 Benzocaine/Menthol 15/ [Cepacol 1 ea PO Q4HRS WHILE AWAKE PRN 12/17/18 Lozenge] Warfarin Sodium [Coumadin 2MG (*)] 6.5 mg PO DAILY16 12/17/18 Medical Decision Making Critical Care Time: I spent a total of 37 minutes of critical care time in obtaining history, performing a physical exam, bedside monitoring of interventions, collecting and interpreting tests and discussion with consultants but not including time spent performing procedures. - Data Points Laboratory Results: Laboratory Results 12/17/18 15:55 12/17/18 15:55 Medications Given: Acetaminophen (Tylenol) 650 mg PO Q4 PRN PRN Reason: Pain, Mild/Fever, Can Take PO Stop: 06/15/19 17:56 Last Admin: 12/20/18 11:10 Dose: 650 mg Alprazolam (Xanax) 0.5 mg PO BID PRN PRN Reason: severe anxiety Stop: 06/15/19 17:47 Last Admin: 12/20/18 07:56 Dose: 0.5 mg Aspirin Buffered (Aspirin Ec) 81 mg PO DAILY [facility] Stop: 06/16/19 08:59 Last Admin: 12/20/18 07:52 Dose: 81 mg Calcium Acetate (Phoslo) 2,001 mg PO TIDMEAL [facility] Stop: 06/15/19 17:59 Last Admin: 12/20/18 15:04 Dose: Not Given Cyclobenzaprine HCl (Flexeril) 5 mg PO Q12 PRN PRN Reason: MUSCLE SPASMS Stop: 06/15/19 21:59 Last Admin: 12/20/18 07:51 Dose: 5 mg Gabapentin (Neurontin) 100 mg PO HS [facility] Stop: 06/15/19 20:59 Last Admin: 12/19/18 19:52 Dose: 100 mg Hydralazine HCl (Apresoline) 10 mg IVP Q6 PRN PRN Reason: SBP>160 Stop: 06/15/19 18:21 Last Admin: 12/18/18 04:03 Dose: 10 mg Hydralazine HCl (Apresoline) 50 mg PO TID [facility] Stop: 06/18/19 15:59 Last Admin: 12/20/18 15:57 Dose: 50 mg Hydromorphone HCl (Dilaudid) 4 mg PO Q3HRS PRN PRN Reason: Pain, Breakthrough Stop: 12/27/18 17:47 Last Admin: 12/20/18 15:42 Dose: 4 mg Metoprolol Tartrate (Lopressor) 100 mg PO BID@08,16 [facility] Stop: 06/16/19 07:59 Last Admin: 12/20/18 07:51 Dose: 100 mg Ondansetron HCl (Zofran) 4 mg IVP Q4 PRN PRN Reason: Nausea/Vomiting, Can't Take PO Stop: 06/15/19 17:56 Last Admin: 12/20/18 15:05 Dose: 4 mg Promethazine HCl (Phenergan) 6.25 mg IVP Q6HRS PRN PRN Reason: nausea/headache Stop: 06/17/19 12:24 Last Admin: 12/20/18 15:42 Dose: 6.25 mg Sertraline HCl (Zoloft) 200 mg PO DAILY@0800 [facility] Stop: 06/16/19 07:59 Last Admin: 12/20/18 07:56 Dose: 200 mg Sevelamer HCl (Renagel) 2,400 mg PO TIDMEAL [facility] Stop: 06/15/19 20:29 Last Admin: 12/20/18 15:04 Dose: Not Given Trazodone HCl (Trazodone) 100 mg PO HS [facility] Stop: 06/15/19 20:59 Last Admin: 12/19/18 19:52 Dose: 100 mg Warfarin Sodium (Coumadin) 4 mg PO DAILY16 [facility] Stop: 06/15/19 21:59 Last Admin: 12/19/18 16:33 Dose: 4 mg Warfarin Sodium (Coumadin) 2.5 mg PO DAILY16 [facility] Stop: 06/15/19 21:59 Last Admin: 12/19/18 16:33 Dose: 2.5 mg Discontinued Medications Alprazolam (Xanax) 0.5 mg PO BID PRN PRN Reason: severe anxiety Stop: 06/15/19 17:47 Last Admin: 12/18/18 10:24 Dose: 0.5 mg Benzonatate (Tessalon Pearles) 200 mg PO BID [facility] Stop: 06/15/19 20:59 Last Admin: 12/19/18 09:35 Dose: Not Given Calcium Acetate (Phoslo) 1,334 mg PO TIDMEAL [facility] Stop: 06/15/19 17:59 Last Admin: 12/20/18 07:56 Dose: 1,334 mg Heparin Sodium (Porcine) (Heparin Injection) 0 unit IVP PRN PRN PRN Reason: re-bolus required by protocol Stop: 06/15/19 17:57 Last Admin: 12/19/18 19:50 Dose: 2,118 units Hydralazine HCl (Apresoline) 25 mg PO TID [facility] Stop: 06/16/19 15:59 Last Admin: 12/19/18 08:37 Dose: 25 mg Hydralazine HCl (Apresoline) 25 mg PO ONCE ONE Stop: 12/19/18 11:09 Last Admin: 12/19/18 11:51 Dose: 25 mg Hydralazine HCl (Apresoline) 25 mg PO BID@1600,2200 [facility] Stop: 06/16/19 15:59 Last Admin: 12/19/18 22:04 Dose: 25 mg Hydralazine HCl (Apresoline) 50 mg PO DAILY [facility] Stop: 06/18/19 08:59 Last Admin: 12/20/18 07:51 Dose: 50 mg Hydromorphone HCl (Dilaudid) 0.5 mg IVP EDNOW ONE Stop: 12/17/18 17:06 Last Admin: 12/17/18 17:09 Dose: 0.5 mg Hydromorphone HCl (Dilaudid) 0.5 mg IVP EDNOW ONE Stop: 12/17/18 17:05 Last Admin: 12/17/18 17:50 Dose: 0.5 mg Hydromorphone HCl (Dilaudid) 2 mg PO Q3H PRN PRN Reason: PAIN MANAGEMENT Stop: 12/27/18 17:47 Last Admin: 12/18/18 10:24 Dose: 2 mg Hydromorphone HCl (Dilaudid) 4 mg PO ONCE ONE Stop: 12/18/18 14:49 Last Admin: 12/18/18 15:20 Dose: 4 mg Nitroglycerin/Dextrose (Nitroglycerin 200 Mcg/Ml (Premix)) 250 mls @ 0 mls/hr IV CONT ONE; Titrate PRN Reason: Protocol Stop: 12/17/18 16:47 Last Admin: 12/17/18 16:58 Dose: 250 mls Heparin Sodium (Porcine) (Heparin 50 Units/Ml (Premix)) 500 mls @ 0 mls/hr IV CONT BRANDY; Per Protocol PRN Reason: Protocol Stop: 06/15/19 17:59 Last Admin: 12/19/18 17:58 Dose: 500 mls Nitroglycerin (Nitrostat) 0.4 mg SL Q5M PRN PRN Reason: Chest Pain Last Admin: 12/17/18 16:20 Dose: 0.4 mg Ondansetron HCl (Zofran) 4 mg IVP EDNOW ONE Stop: 12/17/18 17:06 Last Admin: 12/17/18 17:09 Dose: 4 mg Point of Care Test Results: Chemistry 12/17/18 16:04 POC Troponin I 0.02 ng/mL ng/mL (0.00-0.08) Departure - Departure Disposition: [facility] Inpatient Acute Clinical Impression: Chest pain, Dyspnea, CHF (congestive heart failure), End stage renal disease on dialysis, Hypertensive emergency
[2018-12-17 16:19] LABS: INR 1.33 (0.83-1.16); PROTIME(PATIENT) 15.9 SEC (12.0-15.0)
[2018-12-17] MEDS ORDERED: NITROGLYCERIN/DEXTROSE 250 ML IV ONE (16:46)
[2018-12-17] MEDS ORDERED: HYDROmorphONE/DILAUDID 2 MG/ML INJ IVP ONE ×2 (17:04→17:05)
[2018-12-17] MEDS ORDERED: ONDANSETRON 4 MG/2 ML VIAL IVP ONE (17:05)
[2018-12-17] MEDS ORDERED: HYDROmorphONE/DILAUDID 2 MG TAB PO PRN (17:48)
[2018-12-17] MEDS ORDERED: NITROGLYCERIN/DEXTROSE 250 ML IV SCH (18:00)
--- NOTE | 2018-12-17 18:46 | GHP ---
[f rep st] HISTORY AND PHYSICAL DATE OF ADMISSION: 12/17/2018 CHIEF COMPLAINT: Chest pain and shortness of breath. HISTORY: The patient is a 28-year-old male with a history of mechanical mitral valve replacement, se nt in from hemodialysis for chest pain and shortness of breath. He has been having this off and on f or the last 3 days with increased dyspnea on exertion. He describes it as a squeezing central chest pain, like someone is sitting on his chest, nonpleuritic but sharp. It got much worse during hemodia lysis today. EMS was called. On arrival, blood pressure was 230/130. He has been given multiple dos es of sublingual nitroglycerin and now is on a nitroglycerin drip. He had a little bit of headache t hat has resolved after IV Dilaudid in the emergency room. He gets very dizzy with rising. He says h is blood pressure has been running high all day, starting with when he woke up at [facility] this morning. They gave him an extra dose of oral hydralazine for a high blood pressure reading at that t katty. He only completed half of his hemodialysis today. He says his dry weight is normally 69 kg, an d he is currently 75 kg, but he believes he has had a true weight gain and not fluid because he has b een taking Remeron, which has greatly improved his appetite. PAST MEDICAL HISTORY: 1. Mitral stenosis, status post bioprosthetic valve replacement, which required a redo, and he now h as a mechanical mitral valve replacement. 2. End-stage renal disease secondary to solitary kidney. 3. Congestive heart failure. 4. Hypertension. 5. Anemia. PAST SURGICAL HISTORY: Cholecystectomy and valve replacement as above. MEDICATIONS: Please see computerized record for full detailed list. ALLERGIES: Lidocaine. SOCIAL HISTORY: He was previously a smoker, but quit last month. No alcohol. He now lives at [facility]. His mom recently . REVIEW OF SYSTEMS: Complete review of systems is obtained. Review of systems negative on constituti onal, HEENT, GI, pulmonary, cardiovascular, , hematology, skin, musculoskeletal, endocrine, and psy chiatric except for positives as in HPI. FAMILY HISTORY: Reviewed and noncontributory to presenting complaint. PHYSICAL EXAMINATION: GENERAL: A well-developed, well-nourished male, in no acute distress. VITAL SIGNS: Temperature is 36.4, pulse 83, blood pressure 211/133, and saturating 97% on room air. EYE E XAMINATION: Normal conjunctivae. Pupils are reactive to light. ENT: Normal ears and nose. Hearin g intact. Normal teeth. Oropharynx moist. NECK: Trachea midline. No thyromegaly. CHEST: Normal respiratory effort. LUNGS: Bibasilar rales. CARDIOVASCULAR: Regular rhythm. Positive valve clic k. No lower extremity edema. Positive JVD. ABDOMEN: Soft and nontender. No hepatosplenomegaly. SKIN: Warm, dry, and intact without rash. MUSCULOSKELETAL: No cyanosis or clubbing. Strength 5/5 in upper and lower extremities. NEUROLOGICAL: Cranial nerves intact. Normal sensation to light faith ch. PSYCHIATRIC: Alert and oriented x3. Normal affect. Normal judgment. Normal memory. LABORATORY DATA: White count 4.35, hematocrit 28.3, and platelets 195. Sodium 134, potassium 4.0, c hloride 93, bicarbonate 32, BUN 18, creatinine 3.2, and glucose 94. Troponins negative. BNP is 28,5 00. EKG viewed by me. My personal interpretation is normal sinus rhythm, no ST-T wave changes, and a QTc of 471. Chest x-ray shows CHF. ASSESSMENT/PLAN: 1. Hypertensive emergency, presenting with decompensated congestive heart failure with chest pain, s hortness of breath, and headache. He is now on an intravenous nitroglycerin drip. We will need to e valuate his home blood pressure regimen. 2. Congestive heart failure exacerbation. This is likely due to his uncontrolled hypertension. Blo od pressure control as above. He did have an echocardiogram last September, and we will defer to Card iology whether or not that needs to be repeated. Cardiology has been consulted by the emergency room , and Dr. Ibarra has been notified. For volume control, we will need to get fluid off via dialysis. Nephrology has been consulted. 3. End-stage renal disease. I personally spoke with Dr. Pimentel. He is currently 97% on room a ir and relatively comfortable, so I do not think he needs emergent dialysis at this time. I think mo re importantly, he needs blood pressure control. They will dialyze in the morning unless the situati on becomes more urgent this evening. 4. Mechanical mitral valve replacement. His INR is subtherapeutic at 1.3. We will place him on int ravenous heparin and probably need to increase his Coumadin dose. 5. Anemia. This is probably due to his chronic renal failure. CORE STATUS: Full. ADMISSION STATUS: Inpatient as he is medically complex. Anticipate greater than 2 midnights. DVT PROPHYLAXIS: He will be on IV heparin as above. /[id number]/MODL
[2018-12-17] MEDS: HYDROmorphONE/DILAUDID 2 MG TAB PO PRN ×2 (19:08→22:40)
[2018-12-17] MEDS ORDERED: hydrALAZINE 20 MG/ML VIAL ONE (19:57)
[2018-12-17] MEDS ORDERED: HEPARIN 10,000 UNIT/10 ML MDV (1,000 UNIT/ML) ONE ×2 (19:58→20:20)
[2018-12-17] MEDS ORDERED: HEPARIN/DEXTROSE 25,000 UNIT/500 ML BAG ONE (19:58)
[2018-12-17] MEDS: hydrALAZINE 20 MG/ML VIAL IVP PRN (20:05)
[2018-12-17] MEDS: HEPARIN/DEXTROSE 500 ML IV SCH (20:20)
[2018-12-17] MEDS: HEPARIN 10,000 UNIT/10 ML MDV (1,000 UNIT/ML) IVP PRN (20:20)
[2018-12-17] MEDS: SEVELAMER HCL 800 MG TAB PO SCH (20:42)
[2018-12-17] MEDS: CALCIUM ACETATE 667 MG CAP PO SCH (20:42)
[2018-12-17] MEDS ORDERED: ENOXAPARIN 80 MG/0.8 ML SYR SC SCH (21:00)
[2018-12-17] MEDS: GABAPENTIN 100 MG CAP PO SCH (21:43)
[2018-12-17] MEDS: BENZONATATE 100 MG CAP PO SCH (21:44)
[2018-12-17] MEDS: traZODone 100 MG TAB PO SCH (21:44)
[2018-12-17] MEDS: ACETAMINOPHEN 325 MG TAB PO PRN (21:44)
[2018-12-17] MEDS: ALPRAZolam 0.5 MG TAB PO PRN (21:44)
[2018-12-17] MEDS: WARFARIN SODIUM 2.5 MG TAB PO SCH (22:41)
[2018-12-17] MEDS: WARFARIN SODIUM 4 MG TAB PO SCH (22:41)
[2018-12-18] MEDS: HEPARIN 10,000 UNIT/10 ML MDV (1,000 UNIT/ML) IVP PRN ×3 (01:57→22:00)
[2018-12-18] MEDS: hydrALAZINE 20 MG/ML VIAL IVP PRN (04:03)
--- NOTE | 2018-12-18 09:13 | PDCARPN ---
Cardiology Progress Note Chief Complaint: Elevated blood pressures with chest tightness Assessment/Plan: Assessment: Patient is a 28 y/o male, well known to me in the outpatient setting, with history of MVR (bio was explanted, and mechanical was placed after failure of the bioprosthetic valve), ERSD on HD three times per week, and HTN, who presented to [facility] after hypertension (>200/>100 mm Hg) was noted while undergoing hemodialysis. Patient reported that his blood pressure has been elevated for the past week or so, with pressures similar to that which was noted in the ER. There were also some issues with INR last week, and the patient has been off coumadin for about a week (therapy doses are driven by [place]). Patient was noting chest tightness with the blood pressure that was noted at dialysis (230/130 mm Hg). In the ER, and in the ICU, the patient was treated with both IV hydralazine and IV nitro, which successfully dropped the patient's blood pressure to 113 mm Hg systolic. No further complaints of chest pains/tightness this morning. No active cardiovascular complaints this morning. The patient is nervous about the manner that coumadin is being dosed (or a lackthereof). Plan: (1) Heparin coverage for mechanical MVR with subtherapeutic INR (2) Would increase PO hydralazine from 10 mg Q6 hours to 25 mg three times per day (3) Continue therapy on Lopressor for some HTN control assistance (4) Echocardiography is pending this morning (5) Cardiology will continue to follow this patient Subjective: No cardiovascular complaints this morning Objective: Vital Signs (8 Hrs) Temp Pulse Resp BP Pulse Ox 12/18/18 07:58 36.5 C 70 18 140/97 H 94 12/18/18 06:00 66 108/69 12/18/18 05:00 69 118/79 12/18/18 04:15 66 16 151/87 H 97 12/18/18 04:00 36.5 C 67 15 173/112 H 97 12/18/18 03:00 66 14 156/110 H 96 12/18/18 02:00 68 21 H 154/107 H 98 12/18/18 01:00 67 20 153/105 H 98 Intake/Output (24 Hrs) 12/17/18 12/18/18 12/19/18 05:59 05:59 05:59 Intake Total 872 Output Total 0 200 Balance 872 -200 Intake: Oral (ml) 400 IV Infused (ml) 472 Heparin/Dextrose 500 ml @ 246 Per Protocol IV CONT BRANDY Rx#:[id number] Nitroglycerin/Dextrose 126 250 ml @ Titrate IV CONT BRANDY Rx#:[id number] Output: Urine (ml) 0 200 Urinal 0 200 Other: Weight 73.7 kg Number of Stools Urinal 0 Result Diagrams: 12/17/18 15:55 12/17/18 15:55 Cardiac Labs: Cardiac Lab Results (72 Hrs) 12/18/18 01:05 Troponin I 0.016 Telemetry: Normal sinus rhythm Echocardiogram: Echocardiography is pending - Physical Exam Constitutional: WDWN, healthy appearing, no apparent distress Eyes: PERRL, EOMI Ears, Nose, Mouth, Throat: moist mucous membranes Cardiovascular: regular rate and rhythm, systolic murmur (crisp click was noted) , pulses symmetric bilat, No jugular vein distention Peripheral Pulses: 2+: dorsalis-pedis (R), dorsalis-pedis (L) Respiratory: clear to auscultate bilat, no crackles, no wheezes Gastrointestinal: normoactive bowel sounds Skin: no rashes, no edema Musculoskeletal: no muscular tenderness Neurologic: AAOx3, CN II-XII grossly intact Psychiatric: cooperative, interactive, following commands ICD10 Worksheet Patient Problems: Problems Problem Status Onset Chest pain Acute Dyspnea Acute End stage renal disease on dialysis Acute Hypertensive emergency Acute CHF (congestive heart failure) Chronic Acute blood loss anemia Acute Acute bronchitis Acute Bilateral pneumonia Acute Coagulopathy Acute ESRD on hemodialysis Acute Elevated troponin Acute Fever Acute Headache Acute Hospital-acquired pneumonia Acute Hypoxia Acute Pneumonia Acute Postoperative pneumothorax Acute Prosthetic mitral valve stenosis Acute Pulmonary edema Acute S/P mitral valve replacement with metallic valve Acute ~02/07/18 Shortness of breath Acute Tachycardia Acute Anemia Chronic ESRD (end stage renal disease) Chronic Hypertensive urgency Chronic Severe mitral regurgitation Chronic
--- NOTE | 2018-12-18 09:19 | ASMTLACE ---
ALICIA Acuity / Level of Answers: Yes Care: Did the patient have an inpatient admission? Comorbidities - select Answers: Congestive heart failure all that apply Moderate or severe liver or renal disease Opioid dependence / Chronic pain Other Notes: HTN; MItral stenosis # of Emergency department Answers: 5-8 visits in the last 6 months Score: 18 Date Signed: 12/18/2018 09:18 AM Electronically Signed By:Tami Baltazar
--- NOTE | 2018-12-18 10:03 | PDCONSULT ---
[employer] Worker Note: Renal Consult Note - Chief Complaint Chest pain - History of Present Illness The patient is a 27 y/o M with a known h/o ESRD on HD MWF at [facility] as well as previous MVR who presented from HD yesterday due to severe chest pain and was found to have SBP's >200mmHg and placed in the ICU on a nitro gtt. The patient had been having issues with CP and SOB for 3 days. He is several kilograms above his dry weight, however feels that it is true weight gain b/c he recently started taking remeron and eating more. This am he is feeling better. He is c/o a bloated feeling in his stomach. He has been compliant with his medications. He denies any chest pain at this time. 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 CHF, history of mitral valve prolapse status post replacement with animal donor valve. Anemia of chronic kidney disease on Procrit - Surgical History LUE AVF creation. bioprosthetic MVR. Cholecystectomy - Family History No family history of end-stage renal disease - Social History Smoking Status: Current every day smoker Review of Systems 10pt was reviewed & negative except for what was stated in HPI & below Physical Exam Temp Pulse Resp BP Pulse Ox 36.5 C 70 18 140/97 H 94 12/18/18 07:58 12/18/18 07:58 12/18/18 07:58 12/18/18 07:58 12/18/18 07:58 O2 (L/minute) 1 General: A+Ox3, no distress HEENT: No jaundice, EOMI Neck: Supple, no thyromegaly CV: Flow murmur, RRR, MR valve Resp: Decreased b/l with crackles Abd: Soft, distended, NT Ext: No edema, tattoos Neuro: Non-focal WBC 4.35 10^3/uL (3.80-9.50) 12/17/18 15:55 RBC 3.00 10^6/uL (4.40-6.38) L 12/17/18 15:55 Hgb 9.0 g/dL (13.7-17.5) L 12/17/18 15:55 Hct 28.3 % (40.0-51.0) L 12/17/18 15:55 MCV 94.3 fL (81.5-99.8) 12/17/18 15:55 MCH 30.0 pg (27.9-34.1) 12/17/18 15:55 MCHC 31.8 g/dL (32.4-36.7) L 12/17/18 15:55 RDW 14.7 % (11.5-15.2) 12/17/18 15:55 Plt Count 195 10^3/uL (150-400) 12/17/18 15:55 MPV 9.3 fL (8.7-11.7) 12/17/18 15:55 Neut % (Auto) 78.8 % (39.3-74.2) H 12/17/18 15:55 Lymph % (Auto) 12.6 % (15.0-45.0) L 12/17/18 15:55 [place] % (Auto) 5.3 % (4.5-13.0) 12/17/18 15:55 Eos % (Auto) 1.4 % (0.6-7.6) 12/17/18 15:55 Baso % (Auto) 0.5 % (0.3-1.7) 12/17/18 15:55 Nucleat RBC Rel Count 0.0 % (0.0-0.2) 12/17/18 15:55 Absolute Neuts (auto) 3.43 10^3/uL (1.70-6.50) 12/17/18 15:55 Absolute Lymphs (auto) 0.55 10^3/uL (1.00-3.00) L 12/17/18 15:55 Absolute Monos (auto) 0.23 10^3/uL (0.30-0.80) L 12/17/18 15:55 Absolute Eos (auto) 0.06 10^3/uL (0.03-0.40) 12/17/18 15:55 Absolute Basos (auto) 0.02 10^3/uL (0.02-0.10) 12/17/18 15:55 Absolute Nucleated RBC 0.00 10^3/uL (0-0.01) 12/17/18 15:55 Immature Gran % 1.4 % (0.0-1.1) H 12/17/18 15:55 Immature Gran # 0.06 10^3/uL (0.00-0.10) 12/17/18 15:55 RBC/WBC/PLT Morphology TNP 12/17/18 15:55 Platelet Estimate TNP 12/17/18 15:55 PT 15.9 SEC (12.0-15.0) H 12/17/18 15:55 INR 1.33 (0.83-1.16) H 12/17/18 15:55 APTT 35.8 SEC (23.0-38.0) 12/17/18 15:55 Heparin Anti-Xa, Unfract 1.03 IU/mL (0.32-0.67) H* 12/18/18 08:00 Sodium 134 mEq/L (135-145) L 12/17/18 15:55 Potassium 4.0 mEq/L (3.5-5.2) 12/17/18 15:55 Chloride 93 mEq/L (97-110) L 12/17/18 15:55 Carbon Dioxide 32 mEq/l (22-31) H 12/17/18 15:55 Anion Gap 9 mEq/L (6-14) 12/17/18 15:55 BUN 18 mg/dL (7-23) 12/17/18 15:55 Creatinine 3.2 mg/dL (0.7-1.3) H 12/17/18 15:55 Estimated GFR 23 12/17/18 15:55 Glucose 94 mg/dL (70-100) 12/17/18 15:55 Calcium 8.8 mg/dL (8.5-10.4) 12/17/18 15:55 POC Troponin I 0.02 ng/mL (0.00-0.08) 12/17/18 16:04 Troponin I 0.016 ng/mL (0.000-0.034) 12/18/18 01:05 NT-Pro-B Natriuret Pep 34358 pg/mL (0-125) H 12/17/18 15:55 Imaging: CXR results reviewed. Assessment/Plan: The patient is a 28 y/o M with a known h/o ESRD on HD who presented with volume overload and hypertensive emergency. He is up >6kg from his EDW and likely just needs ultrafiltration. Off nitro gtt and SBP currently in 150's. Likely can go home after HD today if ok with cardiology. -HD today, UF 3-4kg -may return to [facility] with Dr. Rawls tomorrow -continue all home meds -trending trop's -low sodium/renal diet, free water restriction -f/u with cardiology -getting EPO/iron as outpatient -minimize opiates given respiratory issues Will sign off, consult appreciated. Please contact if ?'s #[phone] Anuel Pimentel, DO [facility]
[2018-12-18] MEDS: ALPRAZolam 0.5 MG TAB PO PRN (10:24)
[2018-12-18] MEDS: HYDROmorphONE/DILAUDID 2 MG TAB PO PRN ×4 (10:49→19:55)
[2018-12-18] MEDS: CALCIUM ACETATE 667 MG CAP PO SCH ×3 (11:14→17:29)
[2018-12-18] MEDS: SEVELAMER HCL 800 MG TAB PO SCH ×3 (12:54→17:29)
[2018-12-18] MEDS: BENZONATATE 100 MG CAP PO SCH ×2 (12:55→21:45)
[2018-12-18] MEDS: METOPROLOL TARTRATE 100 MG TAB PO SCH ×2 (12:56→17:29)
[2018-12-18] MEDS: SERTRALINE HCL 100 MG TAB PO SCH (12:56)
[2018-12-18] MEDS: ASPIRIN EC 81 MG TAB PO SCH (12:56)
--- NOTE | 2018-12-18 13:47 | PDMN ---
Medical Necessity Medical necessity: Pt meets IP criteria per MD & MCG M-197; est los >2 mn for eval/tx of hypertensive emergency (BP 230/130) w/severe chest pain & CHF exacerbation; admit for further monitoring, Nitro gtt/med management & Cardiology/Nephrology consults; hx ESRD, MVR, anemia; per H&P & order 12/17/18
--- NOTE | 2018-12-18 13:53 | ASMTCMCOM ---
CM Note CM Note Notes: Patient brought to ED by EMS; he was at dialysis and his RN stopped his treatment d/t his c/o chest pain, dizziness, SOB. He has a hx of MVR and ESRD (dialyzed MWF at [facility]) and frequent admissions to this hospital. He lives at [facility] in nursing home care. He will d/c back once stable. Date Signed: 12/18/2018 01:51 PM Electronically Signed By:Kasey Molina RN
[2018-12-18] MEDS: CYCLOBENZAPRINE 10 MG TAB PO PRN (14:12)
[2018-12-18] MEDS ORDERED: HYDROmorphONE/DILAUDID 4 MG TAB PO ONE (14:48)
--- NOTE | 2018-12-18 14:58 | HOSPPROG ---
Hospitalist Progress Note Assessment/Plan: # hypertensive emergency, now off nitro gtt - currently reasonable control on metop 100 bid; start hydralazine 25 tid # MVR, initially bioprosthetic, required redo with mechanical MV - AC subtherapeutic, cont heparin gtt - warfarin had been held for unclear reasons - will restart - echo pending # ESRD - s/p HD today # dCHF exacerbation - improved after HD # anemia - stable Subjective: c/o severe QUIGLEY after HD Objective: Vital Signs Temp Pulse Resp BP Pulse Ox 36.8 C 72 13 154/97 H 98 12/18/18 12:46 12/18/18 13:49 12/18/18 12:46 12/18/18 13:49 12/18/18 12:46 12/17/18 12/18/18 12/19/18 05:59 05:59 05:59 Intake Total 872 Output Total 0 200 Balance 872 -200 PT 15.9 SEC (12.0-15.0) H 12/17/18 15:55 INR 1.33 (0.83-1.16) H 12/17/18 15:55 chart reviewed discussed with Dr Low - Physical Exam Constitutional: uncomfortable Cardiovascular: regular rate and rhythym, other (S1 click), No irregularly irregular, No edema Respiratory: no respiratory distress, no rales or rhonchi, clear to auscultation Gastrointestinal: soft, non-tender abdomen, no palpable masses, No guarding, No rebound, No distension ICD10 Worksheet Patient Problems: Problems Problem Status Onset Bilateral pneumonia Acute Acute bronchitis Acute Hospital-acquired pneumonia Acute End stage renal disease on dialysis Acute Hypertensive emergency Acute Acute blood loss anemia Acute Coagulopathy Acute S/P mitral valve replacement with metallic valve Acute ~02/07/18 Prosthetic mitral valve stenosis Acute Dyspnea Acute ESRD on hemodialysis Acute Elevated troponin Acute Headache Acute Pneumonia Acute Pulmonary edema Acute Hypoxia Acute Tachycardia Acute Fever Acute Chest pain Acute Shortness of breath Acute Severe mitral regurgitation Chronic Postoperative pneumothorax Acute ESRD (end stage renal disease) Chronic Anemia Chronic CHF (congestive heart failure) Chronic Hypertensive urgency Chronic
[2018-12-18] MEDS: WARFARIN SODIUM 4 MG TAB PO SCH (15:20)
[2018-12-18] MEDS: WARFARIN SODIUM 2.5 MG TAB PO SCH (15:20)
[2018-12-18] MEDS: hydrALAZINE 25 MG TAB PO SCH ×2 (17:29→19:54)
[2018-12-18] MEDS: ACETAMINOPHEN 325 MG TAB PO PRN (17:29)
[2018-12-18] MEDS: traZODone 100 MG TAB PO SCH (19:55)
[2018-12-18] MEDS: GABAPENTIN 100 MG CAP PO SCH (19:55)
--- NOTE | 2018-12-18 20:58 | CPEKG ---
Test Reason : OPEN Blood Pressure : / mmHG Vent. Rate : 084 BPM Atrial Rate : 084 BPM P-R Int : 130 ms QRS Dur : 091 ms QT Int : 398 ms P-R-T Axes : 075 022 078 degrees QTc Int : 471 ms Sinus rhythm Probable left atrial enlargement Borderline prolonged QT interval Confirmed by Eliot Lorenzo ([id number] on 12/18/2018 8:57:31 PM Referred By: Eliot Lorenzo Confirmed By:Eliot Lorenzo
[2018-12-18] MEDS: ALPRAZolam 0.25 MG TAB PO PRN (21:33)
[2018-12-19 04:32] LABS: INR 1.88 (0.83-1.16); PROTIME(PATIENT) 20.7 SEC (12.0-15.0)
[2018-12-19] MEDS: HEPARIN/DEXTROSE 500 ML IV SCH ×2 (04:43→17:58)
[2018-12-19] MEDS: METOPROLOL TARTRATE 100 MG TAB PO SCH ×2 (08:36→16:33)
[2018-12-19] MEDS: SERTRALINE HCL 100 MG TAB PO SCH (08:36)
[2018-12-19] MEDS: hydrALAZINE 25 MG TAB PO SCH ×3 (08:37→22:04)
[2018-12-19] MEDS: ASPIRIN EC 81 MG TAB PO SCH (08:37)
[2018-12-19] MEDS: BENZONATATE 100 MG CAP PO SCH (09:35)
[2018-12-19] MEDS: SEVELAMER HCL 800 MG TAB PO SCH ×3 (09:46→18:04)
[2018-12-19] MEDS: CALCIUM ACETATE 667 MG CAP PO SCH ×3 (09:46→18:04)
[2018-12-19] MEDS: ALPRAZolam 0.25 MG TAB PO PRN (09:49)
[2018-12-19] MEDS: HYDROmorphONE/DILAUDID 2 MG TAB PO PRN ×3 (09:49→22:04)
--- NOTE | 2018-12-19 10:50 | SOAPPROG ---
JASON Progress Note Assessment/Plan: Assessment/Plan: ESRD: on HD MWF. - HD done off-schedule yesterday. - Will plan on HD tomorrow. HTN: BP still elevated but improving. Will increase hydralazine and continue to monitor. NADIA: continue phos binders, will check phos in am. Subjective: No acute events overnight. Pt tolerated HD well yesterday. He notes his swelling is improved, no more dyspnea, not having pain today. Objective: Vital Signs Temp Pulse Resp BP Pulse Ox 36.6 C 64 18 164/119 H 97 12/18/18 19:54 12/19/18 08:00 12/19/18 08:00 12/19/18 09:55 12/19/18 08:00 Laboratory Results 12/19/18 04:07 12/19/18 04:07 12/18/18 12/19/18 12/20/18 05:59 05:59 05:59 Intake Total 872 1466 Output Total 0 200 Balance 872 1266 PT 20.7 SEC (12.0-15.0) H 12/19/18 04:07 INR 1.88 (0.83-1.16) H 12/19/18 04:07 General: alert and oriented, no acute distress Eyes: EOMI, PERRL OP: Clear CV: RRR Resp: nonlabored respirations on RA, CTAB Abd: Soft, NT/ND Ext: no edema BLE Neuro: CN II-XII grossly intact Psych: cooperative Access: AVF ICD10 Worksheet Patient Problems: Problems Problem Status Onset Chest pain Acute Dyspnea Acute End stage renal disease on dialysis Acute Hypertensive emergency Acute CHF (congestive heart failure) Chronic Acute blood loss anemia Acute Acute bronchitis Acute Bilateral pneumonia Acute Coagulopathy Acute ESRD on hemodialysis Acute Elevated troponin Acute Fever Acute Headache Acute Hospital-acquired pneumonia Acute Hypoxia Acute Pneumonia Acute Postoperative pneumothorax Acute Prosthetic mitral valve stenosis Acute Pulmonary edema Acute S/P mitral valve replacement with metallic valve Acute ~02/07/18 Shortness of breath Acute Tachycardia Acute Anemia Chronic ESRD (end stage renal disease) Chronic Hypertensive urgency Chronic Severe mitral regurgitation Chronic
[2018-12-19] MEDS: ACETAMINOPHEN 325 MG TAB PO PRN (10:57)
--- NOTE | 2018-12-19 10:58 | ASMTCMCOM ---
CM Note CM Note Notes: Patient was dialyzed off-schedule yesterday () so will have dialysis tomorrow (sat). Cardiology also following and adjusting meds. We will need to give explicit medication/follow-up instructions to [facility] upon discharge. Current CM Discharge plan: [facility] Date Signed: 12/19/2018 10:57 AM Electronically Signed By:Kasey Molina RN
--- NOTE | 2018-12-19 11:02 | PDCARPN ---
Cardiology Progress Note Chief Complaint: Patient with a head ache this morning. Blood pressures are notably elevated this morning. Assessment/Plan: Assessment: 12-19-18 Patient with a rather significant head ache this morning. No chest pains or pressure. Dialysis yesterday resulted in total of about 10-12 pounds of fluid removed (based on the I/O report). Head aches have been noted with this more recent issue of hypertension. Changes to the Hydralazine (from 10 mg four times per day to 25 mg three times per day) with limited improvements in blood pressure noted. Dizziness and lightheadedness continue to be noted with standing. Blood pressure today (at the time of the assessment) was about 160/ 110 mm Hg. Nephrology saw the patient earlier this morning, and plan on dialysis tomorrow (to eventually get the patient back on schedule for the M/W/F plan. 12-18-18 Patient is a 28 y/o male, well known to me in the outpatient setting, with history of MVR (bio was explanted, and mechanical was placed after failure of the bioprosthetic valve), ERSD on HD three times per week, and HTN, who presented to [facility] after hypertension (>200/>100 mm Hg) was noted while undergoing hemodialysis. Patient reported that his blood pressure has been elevated for the past week or so, with pressures similar to that which was noted in the ER. There were also some issues with INR last week, and the patient has been off coumadin for about a week (therapy doses are driven by [facility] [place]). Patient was noting chest tightness with the blood pressure that was noted at dialysis (230/130 mm Hg). In the ER, and in the ICU, the patient was treated with both IV hydralazine and IV nitro, which successfully dropped the patient's blood pressure to 113 mm Hg systolic. No further complaints of chest pains/tightness this morning. No active cardiovascular complaints this morning. The patient is nervous about the manner that coumadin is being dosed (or a lackthereof). Plan: (1) INR is still subtherapeutic for mechanical MVR, would maintain therapy on heparin until INR is at least 2.5 (2) Increase in hydralazine to 50 mg in the morning and 25 mg at noon and in the pm (3) Continue Lopressor as at present (4) Will order an echo on the patient for today to reassess the mitral valve (5) Cardiology to continue to follow this patient Subjective: Head ache this morning, and difficult to control blood pressures continue Objective: Vital Signs (8 Hrs) Pulse Resp BP Pulse Ox 12/19/18 09:55 164/119 H 12/19/18 08:00 64 18 167/122 H 97 12/19/18 04:21 69 14 144/81 H 93 Intake/Output (24 Hrs) 12/18/18 12/19/18 12/20/18 05:59 05:59 05:59 Intake Total 872 1466 Output Total 0 200 Balance 872 1266 Intake: Oral (ml) 400 1020 IV Infused (ml) 472 446 Heparin/Dextrose 500 ml @ 246 446 Per Protocol IV CONT BRANDY Rx#:[id number] Nitroglycerin/Dextrose 126 250 ml @ Titrate IV CONT BRANDY Rx#:[id number] Output: Urine (ml) 0 200 Urinal 0 200 Other: Weight 73.7 kg 68 kg Number of Voids Toilet 1 Number of Stools Toilet 1 Urinal 0 Result Diagrams: 12/19/18 04:07 12/19/18 04:07 Cardiac Labs: Cardiac Lab Results (72 Hrs) 12/18/18 01:05 Troponin I 0.016 Telemetry: sinus rhythm - Physical Exam Constitutional: WDWN, healthy appearing, no apparent distress, other (head ache) Eyes: PERRL, EOMI Ears, Nose, Mouth, Throat: moist mucous membranes Cardiovascular: regular rate and rhythm, systolic murmur, jugular vein distention, pulses symmetric bilat Peripheral Pulses: 2+: dorsalis-pedis (R), dorsalis-pedis (L) Respiratory: clear to auscultate bilat, no crackles, no wheezes Gastrointestinal: normoactive bowel sounds Skin: no rashes, no edema Musculoskeletal: no muscular tenderness, no joint effusions Neurologic: AAOx3, CN II-XII grossly intact Psychiatric: cooperative, interactive, following commands ICD10 Worksheet Patient Problems: Problems Problem Status Onset Chest pain Acute Dyspnea Acute End stage renal disease on dialysis Acute Hypertensive emergency Acute CHF (congestive heart failure) Chronic Acute blood loss anemia Acute Acute bronchitis Acute Bilateral pneumonia Acute Coagulopathy Acute ESRD on hemodialysis Acute Elevated troponin Acute Fever Acute Headache Acute Hospital-acquired pneumonia Acute Hypoxia Acute Pneumonia Acute Postoperative pneumothorax Acute Prosthetic mitral valve stenosis Acute Pulmonary edema Acute S/P mitral valve replacement with metallic valve Acute ~02/07/18 Shortness of breath Acute Tachycardia Acute Anemia Chronic ESRD (end stage renal disease) Chronic Hypertensive urgency Chronic Severe mitral regurgitation Chronic
[2018-12-19] MEDS ORDERED: hydrALAZINE 25 MG TAB PO ONE (11:08)
[2018-12-19] MEDS: HEPARIN 10,000 UNIT/10 ML MDV (1,000 UNIT/ML) IVP PRN ×2 (12:34→19:50)
[2018-12-19] MEDS: PROMETHAZINE HCL 25 MG/ML INJ IVP PRN (12:48)
--- NOTE | 2018-12-19 13:40 | ECHO ---
[email or web address] [address] [address] Main: [phone] Echocardiography Examination Transthoracic Name: CONRADO ESPINOSA MR#: [id number] Study Date: 12/19/2018 Study Time: 11:40 AM Date of : 1990 Age: 28 year(s) Height: 175.3 cm (69 in.) Weight: 67.59 kg (149 lb.) BSA: 1.82 m2 Gender: Male Examination: Echo Contrast: Image Quality: Adequate Rhythm: Normal sinus rhythm Heart Rate: 64 bpm BP: 162 mmHg/112 mmHg Indication: mechanical MVR with subtherapeutic INR Procedure Staff Referring Physician: Physiotherapy Assistant: Anne Valadez [facility] Reading Physician: Shant Low MD Requesting Provider: Ordering Physician: Shant Low MD Indication: mechanical MVR with subtherapeutic INR Measurements Chambers AV/MV Label Value Normal Value Label Value Normal Value LVOT Vmax 0.93 m/s (0.7m/s - 1.1m/s) AV PGmax 9 mmHg LVOTd 1.9 cm (1.9cm - 2.1cm) AV Vmax 1.46 m/s LVDd, 2D 4.4 cm (4.2cm - 5.9cm) ANTOINE (Vmax) 1.8 cm2 LVDs, 2D 3.5 cm (2.1cm - 4cm) MV VTI 58 cm IVSd, 2D 1.3 cm (0.6cm - 1.1cm) MV PGmax 20 mmHg LVPWd, 2D 1.4 cm (0.6cm - 1cm) MV PGmean 6 mmHg LVEF, BP 60 % (55% - 70%) MV PHT 0.09 s LVEF, 2D 41 % (54% - 74%) MVA PHT 2.3 cm2 RVDd, 2D 5.1 cm (1.9cm - 3.8cm) MV PHT 94 ms TAPSE 1.6 cm TV/PV LADs, 2D 4 cm (3cm - 4cm) Label Value Normal Value RA Area 16 cm2 RA Pressure 15 mmHg Additional Vessels RVSP 44 mmHg Label Value Normal Value TR Pmax 29 mmHg AoAsc 2.7 cm TR Vmax 2.67 m/s AoRoot, 2D 3 cm (1.4cm - 2.6cm) PV PGmax 4 mmHg PV Vmax, Caliper 0.95 m/s (0.6m/s - 0.9m/s) Patient: CONRADO ESPINOSA Study Date: 12/19/2018 Page 1 of 3 11:40 AM Conclusions (1) Left ventricular systolic ejection faction was low normal (50-55%) - moderate LVH (concentric) - normal wall motion (2) Moderate to severe RV dilation with moderate reduction in systolic function (3) Moderate LA dilation with mild RA dilation (4) Mechancial mitral valve with mean gradient of 6 mm Hg. Difficult assessment of the degree of MR given echo artifact from the mechanical valve (5) Trileaflet aortic valve without appreciable insufficiency or sclerosis (6) Severe TR - RVSP was 44 mm Hg (7) Ascending aorta measured 2.7 cm (8) No pericardial effusion (9) Mean gradient through the mechanical mitral valve in Sep 2018 was 14 mm Hg. RVSP was 82 mm Hg Findings Left Ventricle: Left ventricle is normal in size. Normal global systolic left ventricular function. EF evaluated by EF (biplane Ellington's). The ejection fraction, measured by Simpsons method, is 60 %. EF range is estimated at 50 % - 55 %. There is moderate concentric left ventricular hypertrophy. There are no regional wall motion abnormalities. Unable to assess Diastolic Dysfunction due to MVR. Right Ventricle: Moderate to severely dilated right ventricle. Right ventricular systolic function is moderately reduced. Flattened interventricular septum consistent with right ventricular pressure and/or volume overload Left Atrium: The left atrium is moderately dilated. Right Atrium: The right atrium is mildly dilated. Mitral Valve: A mechanical prosthesis is present in the mitral valve. There is MV prosthesis regurgitation degree of severity is difficult to assess due to shadowing from the mechanical MVR. Mean gradient of 6mmHg is normal for this type of valve. There is a mobile echo density noted near the chordae which has been documented on previous echo's and is mostly likely a by product of the MVR surgery. Mitral Valve Measurements MV PGmean is 6 mmHg. Aortic Valve: The aortic valve is structurally normal and trileaflet. Trivial aortic regurgitation is present. There is no aortic stenosis. Tricuspid Valve: Severe tricuspid regurgitation. There is moderately reduced tricuspid leaflet separation. Right Ventricular systolic pressure is measured at 44 mmHg. Pulmonary artery pressure moderately increased which may be underestimated due to wide open TR. Pulmonic Valve: Pulmonic leaflets are structurally normal. Trivial pulmonic valve regurgitation is present. Aorta: The aortic root size in 2D measures 3.0 cm. The aortic root exhibits normal size. The ascending aorta measures 2.7 cm. Ascending aorta is normal in size. Aorta Measurements AoRoot, 2D is 3.0 cm. IVC: The inferior vena cava is dilated. There is less than 50% respiratory excursion. Pericardium: No pericardial effusion. Exam Details Patient: CONRADO ESPINOSA Study Date: 12/19/2018 Page 2 of 3 11:40 AM Procedure Ordered: Echo Procedure Status: Routine study Image Quality: Adequate Facility Location: Cardiac Echo 1 (No Signature Object) Patient: CONRADO ESPINOSA Study Date: 12/19/2018 Page 3 of 3 11:40 AM [id number]
--- NOTE | 2018-12-19 13:49 | HOSPPROG ---
Hospitalist Progress Note Assessment/Plan: 28 year old male with ESRD, MVR, CHF here with hypertensive emergency # hypertensive emergency, now off nitro gtt - currently reasonable control on metop 100 bid; on hydralazine 25 tid -discussed with cardiology, plan to uptitrate hydralazine to 50am, 25 noon, 25hs. # MVR, initially bioprosthetic, required redo with mechanical MV - AC subtherapeutic, cont heparin gtt - warfarin had been held for unclear reasons - will restart - echo today reviewed by myself. # ESRD - s/p HD yesterday, I discussed the case with renal who will take patient to HD tomorrow. # dCHF exacerbation - improved after HD # anemia - stable Subjective: has a headache today. Objective: Vital Signs Temp Pulse Resp BP Pulse Ox 36.8 C 68 18 146/102 H 95 12/19/18 12:00 12/19/18 12:00 12/19/18 12:00 12/19/18 12:36 12/19/18 12:00 Laboratory Results 12/19/18 04:07 12/19/18 04:07 12/18/18 12/19/18 12/20/18 05:59 05:59 05:59 Intake Total 872 1466 Output Total 0 200 Balance 872 1266 PT 20.7 SEC (12.0-15.0) H 12/19/18 04:07 INR 1.88 (0.83-1.16) H 12/19/18 04:07 - Time Spent With Patient Time Spent with Patient: greater than 35 minutes Time Spent with Patient: Greater than 35 minutes spent on this patients care, greater than 50% of time spent counseling, educating, and coordinating care regarding the above mentioned plan. - Physical Exam Constitutional: no apparent distress, appears nourished, not in pain Eyes: PERRL, anicteric sclera, EOMI Ears, Nose, Mouth, Throat: moist mucous membranes, hearing normal, ears appear normal, no oral mucosal ulcers Cardiovascular: regular rate and rhythym, systolic murmur Respiratory: no respiratory distress, no rales or rhonchi, clear to auscultation Gastrointestinal: normoactive bowel sounds, soft, non-tender abdomen, no palpable masses Genitourinary: no bladder fullness, no bladder tenderness, no renal bruits Skin: no rashes or abrasions, no fluctuance, no induration Musculoskeletal: full muscle strength, no muscle tenderness, normal joint ROM Neurologic: AAOx3, sensation intact bilaterally Psychiatric: interacting appropriately, not anxious, not encephalopathic, thought process linear Lymph, Heme, Immunologic: no cervical LAD, no supraclavicular LAD ICD10 Worksheet Patient Problems: Problems Problem Status Onset Chest pain Acute Dyspnea Acute End stage renal disease on dialysis Acute Hypertensive emergency Acute CHF (congestive heart failure) Chronic Acute blood loss anemia Acute Acute bronchitis Acute Bilateral pneumonia Acute Coagulopathy Acute ESRD on hemodialysis Acute Elevated troponin Acute Fever Acute Headache Acute Hospital-acquired pneumonia Acute Hypoxia Acute Pneumonia Acute Postoperative pneumothorax Acute Prosthetic mitral valve stenosis Acute Pulmonary edema Acute S/P mitral valve replacement with metallic valve Acute ~02/07/18 Shortness of breath Acute Tachycardia Acute Anemia Chronic ESRD (end stage renal disease) Chronic Hypertensive urgency Chronic Severe mitral regurgitation Chronic
[2018-12-19] MEDS: WARFARIN SODIUM 2.5 MG TAB PO SCH (16:33)
[2018-12-19] MEDS: WARFARIN SODIUM 4 MG TAB PO SCH (16:33)
[2018-12-19] MEDS: CYCLOBENZAPRINE 10 MG TAB PO PRN (18:03)
[2018-12-19] MEDS: GABAPENTIN 100 MG CAP PO SCH (19:52)
[2018-12-19] MEDS: traZODone 100 MG TAB PO SCH (19:52)
[2018-12-20 02:22] LABS: PLATELET COUNT 146 10^3/uL (150-400)
[2018-12-20 02:41] LABS: INR 2.74 (0.83-1.16); PROTIME(PATIENT) 27.6 SEC (12.0-15.0)
[2018-12-20] MEDS: METOPROLOL TARTRATE 100 MG TAB PO SCH ×2 (07:51→17:39)
[2018-12-20] MEDS: CYCLOBENZAPRINE 10 MG TAB PO PRN ×2 (07:51→19:17)
[2018-12-20] MEDS: ASPIRIN EC 81 MG TAB PO SCH (07:52)
[2018-12-20] MEDS: CALCIUM ACETATE 667 MG CAP PO SCH ×3 (07:56→19:18)
[2018-12-20] MEDS: ALPRAZolam 0.25 MG TAB PO PRN ×2 (07:56→19:16)
[2018-12-20] MEDS: SERTRALINE HCL 100 MG TAB PO SCH (07:56)
[2018-12-20] MEDS: SEVELAMER HCL 800 MG TAB PO SCH ×3 (07:56→19:17)
[2018-12-20] MEDS: PROMETHAZINE HCL 25 MG/ML INJ IVP PRN ×2 (08:35→15:42)
--- NOTE | 2018-12-20 10:39 | PDCARPN ---
Cardiology Progress Note Chief Complaint: hypertensive emergency/DCHF Assessment/Plan: Assessment: 28-year-old male with end-stage renal disease on hemodialysis, difficult to control hypertension. He is status post bioprosthetic mitral valve replacement in July 2017 with early degeneration of prosthetic valve and then redo with mechanical MVR February 2018. Now admitted for chest pain/shortness of breath, diastolic heart failure and hypertension. He also has chronic anemia related to his renal disease. Echo in this admission shows EF 50-55, mod-severe RV dilation, mod conc LVH, mod decreased RV function, mod LA/mild LA dilation, mechanical MV mean gradient 6 mmHg, RVSP 44. Plan: #. Chest pain/shortness of breath: likely related to significant systemic hypertension now improved #. Hypertension: BP now improved with uptitration of Hydralazine Will increase dosing to 50 TID as BP still mildly above goal #. Mitral valve replacement: continue Warfarin #. End-stage renal disease on dialysis: continue per nephrology #. Anemia: to have transfusion prior to discharge 12/20/18 10:06 Subjective: Feels better. Not short of breah and no cp. Reviewed/Discussed With: hospitalist (Kenna) Objective: Vital Signs (8 Hrs) Temp Pulse Resp BP Pulse Ox 12/20/18 07:23 97.6 F 68 12 166/110 H 97 12/20/18 04:00 98.4 F 69 16 141/101 H 98 Intake/Output (24 Hrs) 12/19/18 12/20/18 12/21/18 05:59 05:59 05:59 Intake Total 1466 2372 Output Total 200 Balance 1266 2372 Intake: Oral (ml) 1020 1520 IV Infused (ml) 446 852 Heparin/Dextrose 500 ml @ 446 852 Per Protocol IV CONT [facility] Rx#:[id number] Output: Urine (ml) 200 Urinal 200 Other: Weight 69.173 kg Output Comment Toilet min urine out per pt Number of Voids Toilet 1 1 1 Number of Stools Toilet 1 1 1 Result Diagrams: 12/20/18 02:00 12/20/18 02:00 Cardiac Labs: Cardiac Lab Results (72 Hrs) 12/18/18 01:05 Troponin I 0.016 EKG: personally interpreted SR Telemetry: SR - Physical Exam Constitutional: no apparent distress Eyes: anicteric sclera Ears, Nose, Mouth, Throat: moist mucous membranes Cardiovascular: regular rate and rhythm Respiratory: clear to auscultate bilat, no crackles Skin: no edema Neurologic: AAOx3 Psychiatric: cooperative, interactive ICD10 Worksheet Patient Problems: Problems Problem Status Onset Chest pain Acute Dyspnea Acute End stage renal disease on dialysis Acute Hypertensive emergency Acute CHF (congestive heart failure) Chronic Acute blood loss anemia Acute Acute bronchitis Acute Bilateral pneumonia Acute Coagulopathy Acute ESRD on hemodialysis Acute Elevated troponin Acute Fever Acute Headache Acute Hospital-acquired pneumonia Acute Hypoxia Acute Pneumonia Acute Postoperative pneumothorax Acute Prosthetic mitral valve stenosis Acute Pulmonary edema Acute S/P mitral valve replacement with metallic valve Acute ~02/07/18 Shortness of breath Acute Tachycardia Acute Anemia Chronic ESRD (end stage renal disease) Chronic Hypertensive urgency Chronic Severe mitral regurgitation Chronic
--- NOTE | 2018-12-20 11:00 | SOAPPROG ---
JASON Progress Note Assessment/Plan: Assessment: ESRD: on HD MWF. - HD done off-schedule 12/18 - Will have HD today HTN: BP still elevated but improving. Hydralazine was increased, will get volume off today. Will continue to monitor. NADIA: Elevated, raise CaAcetate to 3 tabs TIDAC. Continue ESRD diet CP - Resolved Plan: 12/20/18 10:56 12/20/18 10:58 Subjective: Feels well, denies CP/SOB or other c/o. Objective: Vital Signs Temp Pulse Resp BP Pulse Ox 36.4 C 68 12 166/110 H 97 12/20/18 07:23 12/20/18 07:23 12/20/18 07:23 12/20/18 07:23 12/20/18 07:23 Laboratory Results 12/20/18 02:00 12/20/18 02:00 12/19/18 12/20/18 12/21/18 05:59 05:59 05:59 Intake Total 1466 2372 Output Total 200 Balance 1266 2372 PT 27.6 SEC (12.0-15.0) H 12/20/18 02:00 INR 2.74 (0.83-1.16) H 12/20/18 02:00 Physical Exam - Physical Exam General Appearance: WD/WN, alert, no apparent distress Respiratory: lungs clear, normal breath sounds Cardiac/Chest: regular rate, rhythm Abdomen: non-tender, soft Extremities: other (LUE AVF), No swelling ICD10 Worksheet Patient Problems: Problems Problem Status Onset Chest pain Acute Dyspnea Acute End stage renal disease on dialysis Acute Hypertensive emergency Acute CHF (congestive heart failure) Chronic Acute blood loss anemia Acute Acute bronchitis Acute Bilateral pneumonia Acute Coagulopathy Acute ESRD on hemodialysis Acute Elevated troponin Acute Fever Acute Headache Acute Hospital-acquired pneumonia Acute Hypoxia Acute Pneumonia Acute Postoperative pneumothorax Acute Prosthetic mitral valve stenosis Acute Pulmonary edema Acute S/P mitral valve replacement with metallic valve Acute ~02/07/18 Shortness of breath Acute Tachycardia Acute Anemia Chronic ESRD (end stage renal disease) Chronic Hypertensive urgency Chronic Severe mitral regurgitation Chronic
[2018-12-20] MEDS: HYDROmorphONE/DILAUDID 2 MG TAB PO PRN ×3 (11:10→19:17)
[2018-12-20] MEDS: ONDANSETRON 4 MG/2 ML VIAL IVP PRN ×2 (11:10→15:05)
[2018-12-20] MEDS: ACETAMINOPHEN 325 MG TAB PO PRN ×2 (11:10→17:39)
--- NOTE | 2018-12-20 15:40 | HOSPPROG ---
Hospitalist Progress Note Assessment/Plan: 28 year old male with ESRD, MVR, CHF here with hypertensive emergency # hypertensive emergency, now off nitro gtt - still hypertensive on lopressor 100 bid, a -On hydralazine 50am, 25 noon, 25hs. -still hypertensive, will increase hydralazine to 50 TID -discussed with cardiology who agrees with this plan # MVR, initially bioprosthetic, required redo with mechanical MV - INR above 2.5. plan to stop heparin now, and cont coumadin - discussed with cardiology. # ESRD -due for HD today. Discussed with renal, will go to HD today #Anemia- likely due to renal disease. consider transfusion in HD today, per renal. # dCHF exacerbation - improved after HD PPX- therapeutic now on coumadin, cont, Subjective: patient with a headache and asking for IV dilaudid Objective: Vital Signs Temp Pulse Resp BP Pulse Ox 36.7 C 63 16 146/108 H 98 12/20/18 11:31 12/20/18 11:31 12/20/18 11:31 12/20/18 11:31 12/20/18 11:31 Laboratory Results 12/20/18 02:00 12/20/18 02:00 12/19/18 12/20/18 12/21/18 05:59 05:59 05:59 Intake Total 1466 2372 Output Total 200 Balance 1266 2372 PT 27.6 SEC (12.0-15.0) H 12/20/18 02:00 INR 2.74 (0.83-1.16) H 12/20/18 02:00 - Time Spent With Patient Time Spent with Patient: greater than 35 minutes Time Spent with Patient: Greater than 35 minutes spent on this patients care, greater than 50% of time spent counseling, educating, and coordinating care regarding the above mentioned plan. - Physical Exam Constitutional: no apparent distress, appears nourished, not in pain Eyes: PERRL, anicteric sclera, EOMI Ears, Nose, Mouth, Throat: moist mucous membranes, hearing normal, ears appear normal, no oral mucosal ulcers Cardiovascular: regular rate and rhythym, systolic murmur Respiratory: no respiratory distress, no rales or rhonchi, clear to auscultation Gastrointestinal: normoactive bowel sounds, soft, non-tender abdomen, no palpable masses Genitourinary: no bladder fullness, no bladder tenderness, no renal bruits Skin: no rashes or abrasions, no fluctuance, no induration Musculoskeletal: full muscle strength, no muscle tenderness, normal joint ROM Neurologic: AAOx3, sensation intact bilaterally Psychiatric: interacting appropriately, not anxious, not encephalopathic, thought process linear Lymph, Heme, Immunologic: no cervical LAD, no supraclavicular LAD ICD10 Worksheet Patient Problems: Problems Problem Status Onset Chest pain Acute Dyspnea Acute End stage renal disease on dialysis Acute Hypertensive emergency Acute CHF (congestive heart failure) Chronic Acute blood loss anemia Acute Acute bronchitis Acute Bilateral pneumonia Acute Coagulopathy Acute ESRD on hemodialysis Acute Elevated troponin Acute Fever Acute Headache Acute Hospital-acquired pneumonia Acute Hypoxia Acute Pneumonia Acute Postoperative pneumothorax Acute Prosthetic mitral valve stenosis Acute Pulmonary edema Acute S/P mitral valve replacement with metallic valve Acute ~02/07/18 Shortness of breath Acute Tachycardia Acute Anemia Chronic ESRD (end stage renal disease) Chronic Hypertensive urgency Chronic Severe mitral regurgitation Chronic
[2018-12-20] MEDS: WARFARIN SODIUM 4 MG TAB PO SCH (17:39)
[2018-12-20] MEDS ORDERED: PROCHLORPERAZINE MALEATE 10 MG TAB PO ONE (19:45)
[2018-12-20] MEDS: GABAPENTIN 100 MG CAP PO SCH (20:13)
[2018-12-20] MEDS: traZODone 100 MG TAB PO SCH (20:13)
[2018-12-21 04:29] LABS: PLATELET COUNT 145 10^3/uL (150-400)
[2018-12-21 04:42] LABS: INR 2.76 (0.83-1.16); PROTIME(PATIENT) 27.8 SEC (12.0-15.0)
[2018-12-21] MEDS: METOPROLOL TARTRATE 100 MG TAB PO SCH (08:25)
[2018-12-21] MEDS: ALPRAZolam 0.25 MG TAB PO PRN (08:26)
[2018-12-21] MEDS: SEVELAMER HCL 800 MG TAB PO SCH ×3 (08:27→14:10)
[2018-12-21] MEDS: SERTRALINE HCL 100 MG TAB PO SCH (08:27)
[2018-12-21] MEDS: CYCLOBENZAPRINE 10 MG TAB PO PRN (08:27)
[2018-12-21] MEDS: ASPIRIN EC 81 MG TAB PO SCH (08:27)
[2018-12-21] MEDS: CALCIUM ACETATE 667 MG CAP PO SCH ×3 (08:28→14:09)
[2018-12-21] MEDS: ONDANSETRON 4 MG/2 ML VIAL IVP PRN (08:39)
[2018-12-21] MEDS ORDERED: amLODIPine BESYLATE 5 MG TAB PO SCH (09:00)
[2018-12-21] MEDS: ACETAMINOPHEN 325 MG TAB PO PRN (10:12)
--- NOTE | 2018-12-21 10:41 | SOAPPROG ---
JASON Progress Note Assessment/Plan: Assessment/Plan: ESRD: on HD MWF. - HD done off-schedule yesterday. - Will plan on HD tomorrow per routine, can be done as outpatient if discharged. HTN: BP still elevated but improving. Would consider giving nifedipine as opposed to amlodipine - faster acting and more room to titrate up if needed. NADIA: continue phos binders. Hyperkalemia: will modulate on HD per routine. Subjective: No acute events overnight. Pt with no dyspnea or swelling. He still has some QUIGLEY. He wants to go home. Objective: Vital Signs Temp Pulse Resp BP Pulse Ox 36.9 C 64 16 154/97 H 94 12/21/18 07:32 12/21/18 07:32 12/21/18 07:32 12/21/18 10:13 12/21/18 07:32 Laboratory Results 12/21/18 03:13 12/21/18 03:13 12/20/18 12/21/18 12/22/18 05:59 05:59 05:59 Intake Total 2372 750 Balance 2372 750 PT 27.8 SEC (12.0-15.0) H 12/21/18 03:13 INR 2.76 (0.83-1.16) H 12/21/18 03:13 General: alert and oriented, no acute distress Eyes: EOMI, PERRL OP: Clear CV: RRR Resp: nonlabored respirations on RA Abd: Soft, NT/ND Ext: no edema BLE Neuro: CN II-XII Grossly intact, no asterixis Psych: cooperative ICD10 Worksheet Patient Problems: Problems Problem Status Onset Chest pain Acute Dyspnea Acute End stage renal disease on dialysis Acute Hypertensive emergency Acute CHF (congestive heart failure) Chronic Acute blood loss anemia Acute Acute bronchitis Acute Bilateral pneumonia Acute Coagulopathy Acute ESRD on hemodialysis Acute Elevated troponin Acute Fever Acute Headache Acute Hospital-acquired pneumonia Acute Hypoxia Acute Pneumonia Acute Postoperative pneumothorax Acute Prosthetic mitral valve stenosis Acute Pulmonary edema Acute S/P mitral valve replacement with metallic valve Acute ~02/07/18 Shortness of breath Acute Tachycardia Acute Anemia Chronic ESRD (end stage renal disease) Chronic Hypertensive urgency Chronic Severe mitral regurgitation Chronic
[2018-12-21] MEDS ORDERED: PROCHLORPERAZINE MALEATE 10 MG TAB PO ONE (11:16)
--- NOTE | 2018-12-21 11:49 | PDCARPN ---
Cardiology Progress Note Chief Complaint: htn/cp/dyspnea Assessment/Plan: Assessment: 28-year-old male with end-stage renal disease on hemodialysis, difficult to control hypertension. He is status post bioprosthetic mitral valve replacement in July 2017 with early degeneration of prosthetic valve and then redo with mechanical MVR February 2018. Now admitted for chest pain/shortness of breath, diastolic heart failure and hypertension. He also has chronic anemia related to his renal disease. Echo in this admission shows EF 50-55, mod-severe RV dilation, mod conc LVH, mod decreased RV function, mod LA/mild LA dilation, mechanical MV mean gradient 6 mmHg, RVSP 44. Plan: #. Chest pain/shortness of breath: likely related to significant systemic hypertension now improved #. Hypertension: BP now improved with uptitration of Hydralazine Will change Amlodipine to Procardia 30 BID per renal recommendations #. Mitral valve replacement: continue Warfarin #. End-stage renal disease on dialysis: continue per nephrology #. Anemia: stable but low counts 12/21/18 11:42 Subjective: No cp or shortness of breath but still has headache which he attributes to teeth decay. Objective: Vital Signs (8 Hrs) Temp Pulse Resp BP Pulse Ox 12/21/18 10:13 154/97 H 12/21/18 07:32 98.4 F 64 16 173/113 H 94 Intake/Output (24 Hrs) 12/20/18 12/21/18 12/22/18 05:59 05:59 05:59 Intake Total 2372 750 Balance 2372 750 Intake: Oral (ml) 1520 750 IV Infused (ml) 852 Heparin/Dextrose 500 ml @ 852 Per Protocol IV CONT BRANDY Rx#:[id number] Other: Weight 69.173 kg 67.404 kg Output Comment Toilet min urine out per pt Number of Voids Toilet 1 1 Number of Stools Toilet 1 1 Result Diagrams: 12/21/18 03:13 12/21/18 03:13 - Physical Exam Constitutional: no apparent distress Eyes: anicteric sclera Skin: no edema Neurologic: AAOx3 Psychiatric: cooperative, interactive ICD10 Worksheet Patient Problems: Problems Problem Status Onset Chest pain Acute Dyspnea Acute End stage renal disease on dialysis Acute Hypertensive emergency Acute CHF (congestive heart failure) Chronic Acute blood loss anemia Acute Acute bronchitis Acute Bilateral pneumonia Acute Coagulopathy Acute ESRD on hemodialysis Acute Elevated troponin Acute Fever Acute Headache Acute Hospital-acquired pneumonia Acute Hypoxia Acute Pneumonia Acute Postoperative pneumothorax Acute Prosthetic mitral valve stenosis Acute Pulmonary edema Acute S/P mitral valve replacement with metallic valve Acute ~02/07/18 Shortness of breath Acute Tachycardia Acute Anemia Chronic ESRD (end stage renal disease) Chronic Hypertensive urgency Chronic Severe mitral regurgitation Chronic
[2018-12-21 12:00] VITALS: BP 144/93
--- NOTE | 2018-12-21 12:03 | PDIAF ---
- Diagnosis Code Status: Full Code - Medication Management Discharge Medications: electronically signed and located in the Home Medication List. - Orders Services needed: Registered Nurse Isolation Type: None Diet Recommendation: no restrictions on diet Diet Texture: Regular Texture Diet - Labs/Radiology CBC w/diff Date: 12/22/18 (may need blood at HD on 12/23) PT/INR Date: 12/22/18 (INR was too low, goal 2.5-3.5. monitor 3X per week at least until stable. ) - Follow Up Care Current Providers and Referrals: Patient,NotPresent [Unknown] - As per Instructions
--- NOTE | 2018-12-21 12:13 | ASMTDCNOTE ---
Case Management Discharge Discharge Order Complete? Answers: Yes Patient to Obtain Answers: Other Notes: [facility] Medic[facility] Transportation Arranged Answers: Other Notes: [place] w/c transport Transport will Pick (Date 12/21/2018 12:00 AM & Time) EMTALA Complete Answers: No Case Management Transport Answers: No Form Complete Faxed Final Orders Answers: Yes Agency/Facility Transfer Answers: Yes Report Printed & Faxed to Receiving Agency Family Notified Answers: No Discharge Comments Notes: Pts case discussed in tx rounds. Pt is being d/c'd today. Pt will resume HD at [facility]. DC orders sent to [facility] and [facility]. SHAVON Butler will call to give report. CM available for changes. Plan: [facility] w/ outpatient [facility] palliative follow up Date Signed: 12/21/2018 12:12 PM Electronically Signed By:ELIDIA Francisco
--- NOTE | 2018-12-21 12:13 | ASDISCHSUM ---
Discharge Information Plan Status:SNF Medically Cleared to Leave:12/21/2018 Discharge Date:12/21/2018 CM D/C Disposition: ADT D/C Disposition:Snf Facility Projected Discharge Date:12/21/2018 11:00 AM Transportation at D/C: Discharge Delay Reason: Follow-Up Date:12/21/2018 11:00 AM Discharge Slot: Final Diagnosis: Placement Information Referral Type:*Senior Living/SNF Referral ID:[id number] Provider Name:[facility] Address 1:[address] Address 2: City:[place] Selection Factors: State:[place] Referral Type:Palliative Care Referral ID:-[id number] Provider Name:[facility] Address 1:[address] Phone Number: Address 2: Fax Number: [facility]:[place] Selection Factors: State:[place] Patient Contact Information Contact Name:DONI Relationship:Mother Address:[address] Work Phone: [place] [facility] Alternate Phone: [facility]/Zip Code:[place] [address] Email: Financial Information Financial Class:Medicare Primary Plan Desc:MEDICARE INPATIENT Primary Plan Number:[id number] Secondary Plan Desc:[place] Secondary Plan Number:[id number] Assessment Information LACE LACE Acuity / Level of Answers: Yes Care: Did the patient have an inpatient admission? Comorbidities - select Answers: Congestive heart failure all that apply Moderate or severe liver or renal disease Opioid dependence / Chronic pain Other Notes: HTN; MItral stenosis # of Emergency department Answers: 5-8 visits in the last 6 months Score: 18 Date Signed: 12/18/2018 09:18 AM Electronically Signed By:Tami Baltazar [facility] Progress Note CM Note CM Note Notes: Patient brought to ED by EMS; he was at dialysis and his RN stopped his treatment d/t his c/o chest pain, dizziness, SOB. He has a hx of MVR and ESRD (dialyzed MWF at [facility]) and frequent admissions to this hospital. He lives at [facility] in alf care. He will d/c back once stable. Date Signed: 12/18/2018 01:51 PM Electronically Signed By:Kasey Molina RN [facility] CM Progress Note CM Note CM Note Notes: Patient was dialyzed off-schedule yesterday () so will have dialysis tomorrow (sat). Cardiology also following and adjusting meds. We will need to give explicit medication/follow-up instructions to Lizeth Trujillo upon discharge. Current CM Discharge plan: [facility] Date Signed: 12/19/2018 10:57 AM Electronically Signed By:Kasey Molina RN Case Management Discharge Plan Note Case Management Discharge Discharge Order Complete? Answers: Yes Patient to Obtain Answers: Other Notes: [facility] Medications Transportation Arranged Answers: Other Notes: [place] w/c transport Transport will Pick (Date 12/21/2018 12:00 AM & Time) RICHARD Complete Answers: No Case Management Transport Answers: No Form Complete Faxed Final Orders Answers: Yes Agency/Facility Transfer Answers: Yes Report Printed & Faxed to Receiving Agency Family Notified Answers: No Discharge Comments Notes: Pts case discussed in tx rounds. Pt is being d/c'd today. Pt will resume HD at [facility]. DC orders sent to [facility] and [facility]. SHAVON Butler will call to give report. CM available for changes. Plan: [facility] w/ outpatient [facility] palliative follow up Date Signed: 12/21/2018 12:12 PM Electronically Signed By:ELIDIA Francisco Intervention Information
--- NOTE | 2018-12-21 13:58 | PDDCSUM ---
Discharge Summary Discharge Summary: Discharge diagnosis Hypertensive urgency End-stage renal disease Mitral valve repair Diastolic congestive heart failure Chronic anemia Hyperkalemia Chronic pain Subtherapeutic INR Patient was transferred from his assisted facility [facility] after a blood pressure was obtained that showed a systolic above 200. He was started on a nitroglycerin drip and titrated. This was able to be discontinued the following morning and he was started on his home medications which were then up titrated. He required multiple sessions of dialysis as he had missed his. His INR was also subtherapeutic at 1.3 and so he was started on heparin drip which was continued until his INR reached a goal of 2.5. An echocardiogram was obtained which showed no substantial changes from his most recent. Ultimately his blood pressure medications were increased to Lopressor 100 mg twice daily, hydralazine 50 mg three times daily and nifedipine 30 mg twice daily was added as well. He was discharged back to [facility] to follow up with Cardiology, Nephrology and his primary care physician for further evaluation and management of his underlying medical problems as well as potentially further titration of his blood pressure medications. It was recommended that his INR be checked at least 3 times a week until remained stable with an INR goal of at least 2.5. Disposition Back to [facility] New medications Lopressor 100 mg twice daily Hydralazine 50 mg three times daily Now fed a Pean 30 mg twice daily I spent over 30 min on the discharge of this patient
[2018-12-21] MEDS ORDERED: NIFEdipine 10 MG CAP PO SCH (16:00)
[2018-12-21] MEDS ORDERED: NIFEdipine ER 30 MG TAB PO SCH (21:00)
== END 2018-12-21 13:51 | DRG 304 ==
LOC: EDUNIT# → F2N 21:31 → F2W 12-18 12:10
PROVIDERS: ADMIT Internal Medicine; ATTEND Internal Medicine
PROC: 5A1D70Z Performance of Urinary Filtration, Intermittent, Less than 6 Hours Per Day (ICD-10-PCS; principal; 2018-12-17)
DX: I16.0 Hypertensive urgency (principal); N18.6 End stage renal disease; E87.5 Hyperkalemia; I11.0 Hypertensive heart disease with heart failure; I50.31 Acute diastolic (congestive) heart failure; D63.1 Anemia in chronic kidney disease; Q60.0 Renal agenesis, unilateral; G89.29 Other chronic pain; Z95.2 Presence of prosthetic heart valve; Z79.01 Long term (current) use of anticoagulants; Z99.2 Dependence on renal dialysis; F17.210 Nicotine dependence, cigarettes, uncomplicated
CPT/HCPCS: 84484-ER; 85520-90; 96365; 96366; J0360; J1170; J1200; J1644; J2405; J2550

== ENCOUNTER 2018-12-24 14:17 | Day surgery (SDC) | payer OTHER, MEDICAID ==
[2018-12-24] MEDS ORDERED: NALOXONE HCL 0.4 MG/ML INJ IVP PRN (14:27)
[2018-12-24] MEDS ORDERED: FLUMAZENIL 0.5 MG/5 ML MDV IVP PRN (14:27)
[2018-12-24] MEDS ORDERED: fentaNYL 100 MCG/2 ML INJ IVP PRN (14:27)
[2018-12-24] MEDS ORDERED: MIDAZOLAM 2 MG/2 ML VIAL IVP PRN (14:27)
[2018-12-24] MEDS ORDERED: NS 1,000 ML IV SCH (14:30)
[2018-12-24] MEDS ORDERED: CHLOROPROCAINE HCL 2% 400 MG/20 ML VIAL IF ONE (15:15)
[2018-12-24] MEDS ORDERED: IOPAMIDOL (ISOVUE-300) 100 ML BTL ONE (16:06)
[2018-12-24] MEDS ORDERED: ONDANSETRON 4 MG/2 ML VIAL IVP PRN (17:05)
[2018-12-24] MEDS ORDERED: ACETAMINOPHEN 325 MG TAB PO PRN (17:05)
[2018-12-24] MEDS ORDERED: oxyCODONE IR 5 MG TAB PO ONE (17:06)
--- NOTE | 2018-12-24 17:15 | PDRADPRE ---
Radiology History & Physical Indication for procedure: renal failure Home medications: Gabapentin [Neurontin 100 MG (*)] 100 mg PO HS 01/12/18 [Last Taken 12/04/18] Albuterol [Proventil Inhaler HFA (*)] 2 puffs IH Q4HRS PRN 09/14/18 [Last Taken 09/24/18 02:00] Calcium Acetate [Phoslo (*)] 2 each PO TIDMEAL 09/14/18 [Last Taken 12/04/18 17: 00] Calcium Carbonate [Tums 500MG (*)] 500 mg PO Q6HRS PRN 09/14/18 [Last Taken Unknown] Nitroglycerin [Nitrostat 0.4 mg (*)] 0.4 mg SL Q5M PRN 09/14/18 [Last Taken Unknown] Ondansetron Odt [Zofran Odt 4 mg (*)] 4 mg PO Q6HRS PRN 09/14/18 [Last Taken Unknown] Sertraline HCl [Zoloft 100mg (*)] 200 mg PO DAILY@0800 09/14/18 [Last Taken 08:00] Sevelamer Carbonate [Renvela] 3 each PO TIDMEAL 09/14/18 [Last Taken 12/05/18 07 :30] traZODone [traZODONE 50MG (*)] 100 mg PO HS 09/14/18 [Last Taken 12/04/18] Benzonatate [Tessalon Pearles] 200 mg PO BID 10/03/18 [Last Taken 12/05/18 08:00 ] Acetaminophen [Tylenol 325mg (*)] 650 mg PO Q4H PRN 12/05/18 [Last Taken ] Cyclobenzaprine [Cyclobenzaprine HCl] 7.5 mg PO Q12HRS PRN 12/05/18 [Last Taken 12/05/18 10:25] HYDROmorphone HCL [Dilaudid 2 mg (*)] 2 mg PO Q3H PRN 12/05/18 [Last Taken 12/02] HYDROmorphone HCL [Dilaudid 2 mg (*)] 4 mg PO Q3HRS PRN 12/05/18 [Last Taken 20:25] Ipratropium/Albuterol [Duoneb (*)] 3 ml IH Q6HRS PRN 12/05/18 [Last Taken Unknown] Metoprolol Tartrate [Lopressor 100 mg (*)] 100 mg PO BID@08,16 12/05/18 [Last Taken 12/17/18 0800] Sennosides [Senna Lax] 2 each PO BID PRN 12/05/18 [Last Taken Unknown] guaiFENesin [Mucinex 600 MG (*)] 600 mg PO BID PRN 12/05/18 [Last Taken Unknown] Aspirin EC [Aspirin EC 81 mg (*)] 81 mg PO DAILY 12/17/18 [Last Taken Unknown] Benzocaine/Menthol / [Cepacol Lozenge] 1 ea PO Q4HRS WHILE AWAKE PRN [Last Taken Unknown] Warfarin Sodium [Coumadin 2MG (*)] 6.5 mg PO DAILY16 12/17/18 [Last Taken ] Allergies/Adverse Reactions: lidocaine [From Lidoderm] Allergy (Intermediate, Verified 12/05/18 16:06) Rash Mental status: A&Ox3
--- NOTE | 2018-12-24 17:15 | PDPROPOC ---
Sedation Plan of Care ASA Classification: ASA 3 Mallampati Score: Class 2 Mallampati Reference Image:
--- NOTE | 2018-12-24 17:15 | PDRADPN ---
Radiology Procedure Note Date of Procedure: 12/24/18 Radiologist: Paramjit Nunez Anesthesia: IV Sedation Pre-op Diagnosis: forearm pain Post-op Diagnosis: same Procedure: fistulogram Inf/Abcess present in the surg proc area at time of surgery?: No
[2018-12-24 17:33] VITALS: BP 135/81
== END 2018-12-24 17:36 | disposition home or self-care (01) ==
LOC: FIMAGING 14:17
PROVIDERS: ATTEND Radiology Diagnostic Radiology
PROC: B34JZZZ Ultrasonography of Left Upper Extremity Arteries (ICD-10-PCS; principal; 2018-12-24 16:27)
PROC: B31J1ZZ Fluoroscopy of Left Upper Extremity Arteries using Low Osmolar Contrast (ICD-10-PCS; principal; 2018-12-24 16:27)
DX: T82.848A Pain due to vascular prosthetic devices, implants and grafts, initial encounter (principal); N18.6 End stage renal disease
CPT/HCPCS: 36901; 76937; 99152; C1758; C1769; J1644; J2250; J2310; J2400; J3010; Q9967

== ENCOUNTER 2019-01-31 23:19 | Observation (INO) | payer OTHER, MEDICAID | END 2019-02-01 17:48 | LOC: F3E 02-01 03:16 ==